=== PATIENT | female | born 1955 | race Caucasian/White ===

== ENCOUNTER 2019-10-25 14:15 | Outpatient (RCR) | payer OTHER, SELFPAY ==
[2019-10-12 15:11] VITALS: BP 159/89; PULSE 132; RESP 18; TEMP 37.2; BMI 35.2
--- NOTE | 2019-10-12 17:12 | HP.PCM_ITS ---
(1) Pressure injury of right buttock, stage 3 Status: Acute Current Visit: Yes Code(s): L89.313 - Pressure ulcer of right buttock, stage 3 (2) Pressure injury of sacral region, stage 2 Status: Acute Current Visit: Yes Code(s): L89.152 - Pressure ulcer of sacral region, stage 2 (3) Debility Status: Acute Current Visit: Yes Code(s): R53.81 - Other malaise (4) Multiple sclerosis Status: Acute Current Visit: Yes Code(s): G35 - Multiple sclerosis (5) Psoriasis Status: Acute Current Visit: Yes Code(s): L40.9 - Psoriasis, unspecified (6) Bilateral lower extremity edema Status: Acute Current Visit: Yes Code(s): R60.0 - Localized edema (7) History of breast cancer Status: Acute Current Visit: Yes Code(s): Z85.3 - Personal history of malignant neoplasm of breast History of Present Illness Date of Service: 10/12/19 Chief Complaint: Pressure injuries to sacral area and right buttock x2 months History of Wound: This is a 64-year-old white female who presents to the wound healing center today with her with complaint of nonhealing pressure injuries to sacrum and right buttock for the last 2 months. She has a past medical history as listed above significant for MS and is nonambulatory. She states that she spends most of the time in her wheelchair or a chair. She does have a pressure relieving cushion and mattress Topper. She notes that over the past 2 months these wounds have opened up and progressively worsened. She now notes a foul smell. She states that she has been utilizing Aquasol silver without much improvement. She denies any prior history of wounds in the past. She is not ambulatory and spends most of her time in the seated position. He does have chronic lower extremity edema and wears compression stockings at 30 to 40 mmHg. She denies any other acute concerns at this time. All other systems are reviewed and negative with exception of those listed above. Past Medical History Surgical History: no surgical history Lives: Spouse/ Significant Other Smoking Status: Never smoker Tobacco Use: Non-smoker Alcohol: None Drugs: None Review of Systems Constitutional: Denies: Chills, Fever, Weight Change Eyes: Denies: Pain, Vision Change HEENT: Denies: Difficulty Hearing, Difficulty Swallowing, Sinus Congestion Cardiovascular: Denies: Chest Pain, Palpitations Respiratory: Denies: Cough, Shortness of Breath Gastrointestinal: Denies: Diarrhea, Nausea, Vomiting Genitourinary: Denies: Dysuria, Hematuria Skin: Reports: Wounds - See HPI Endocrine: Denies: Heat/ Cold Intolerance, Polydipsia, Polyuria Hematologic/ Lymphatic: Denies: Easy Bruising, Easy Bleeding - Physical Exam Vital Signs Temp Pulse Resp BP 98.9 F 132 H 18 159/89 H 10/12/19 15:11 10/12/19 15:11 10/12/19 15:11 10/12/19 15:11 General: Alert, Oriented x3, Cooperative, No apparent distress HEENT: Atraumatic, PERRLA, EOMI Oral: Moist Mucosa Neck: Supple, No JVD, Negative Carotid Bruits Lungs: Clear to auscultation, Normal air movement, No rhonchi, No wheeze, No rales Cardiovascular: Regular rate, Regular Rhythm Abdomen: Soft, Non Tender, Obese Extremities: Capillary Refill Less than 3 Seconds, Edema - Underlies bilateral lower extremity edema Skin: Ulcer/ Wound - Stage II pressure injury to sacrum with adherent slough to wound bed, no signs of obvious infection at this time, stage III pressure injury to right buttock with large amount of adherent slough and necrotic tissue. Foul smell present, no fluctuance noted and no surrounding erythema warmth or tenderness, no tunneling or undermining present at this time. Wound Measurements and Assessment WC - Nurse 1 - General Ulcer Measurement Start: 10/12/19 15:11 Freq: Status: Active Protocol: Activity Type Activity Date Activity User E-Sign Co-Sign Detail Recorded Client Recorded Date Recorded By Document 10/12/19 15:11 DV [id number] 10/12/19 15:57 DV 10/12/19 15:11 Wound Center Nurse 1 [Ulcer Assessment] #1- R GLUTEAL FOLD -Combined with other wound No -Current Size (cm) - Length 3 -Current Size (cm) - Width 2 -Current Size (cm) - Depth 2.5 -Total Square Cm 6 -Date of Last Picture (Recall this 10/12/19 field) -Photo Taken Yes -Epithelialization None Present -Tunneling No -Undermining/Tunneling No -Circular Undermining No -Classification - Thickness Full Thickness without Exposed Support Structure -Classification - Pressure Ulcer Stage 3 -Exudate Amt Large -Exudate Type Yellow/Green -Wound Margin Distinct, Outline Attached -Granulation Amt None Present (0 %) -Granulation Quality N/A -Slough/Fibrin Yes -Necrosis Amt Large (67-100%) -Necrotic Tissue Type Adherent Slough -Structure Exposed Fat Layer Exposed,None/ Limited to Skin Breakdown -Texture (Janene-wound Skin Appearance) Assessed -Moisture (Janene-wound Skin Appearance Assessed, ) Weeping -Color (Janene-wound Skin Appearance) Assessed -Temperature (Janene-wound Skin No Abnormality Appearance) (Pt Warm) Musculoskeletal: Muscle Wasting - Lateral lower extremities, - - Generalized weakness bilateral lower extremities Neurological: Neuro grossly intact Psych/Mental Status: Normal Affect, Appropriate, Alert and oriented to time, place, person, mood and affect Debridement Note Wound debrided: Stage II pressure injury sacrum Laterality: Not Applicable Type of Debridement: Excisional debridement Anesthesia Used: 5% Lidocaine Gel Depth: in the subcutaneous layer Percentage of wound debrided: 100 Instrument Used: 7mm curette Tissue Removed: Slough and devitalized tissue Severity: Fat Layer Exposed Amount of bleeding with debridement: Mild Bleeding Controlled with: Pressure Patient tolerated procedure well - Additional Wound Wound debrided: Stage III pressure injury right lower buttock Laterality: Right Type of Debridement: Excisional debridement Anesthesia Used: 5% Lidocaine Gel Depth: in the subcutaneous layer Percentage of wound debrided: 100 Instrument Used: 7mm curette Tissue Removed: Slough, devitalized tissue, necrotic tissue Severity: Fat Layer Exposed Amount of bleeding with debridement: Mild Bleeding Controlled with: Pressure Patient tolerated procedure: Patient tolerated procedure well Assessment/Plan Active Problems Pressure injury of right buttock, stage 3 (Acute) Pressure injury of sacral region, stage 2 (Acute) Debility (Acute) Multiple sclerosis (Acute) Psoriasis (Acute) Bilateral lower extremity edema (Acute) History of breast cancer (Acute) Assessment: See above diagnoses Plan: The patient was seen and examined at the wound center today and was updated on the plan of care. A subcutaneous debridement was performed today. The patient tolerated the procedure well. The patients wound care will consist of: Continuing Aquasol silver and doing a foam dressing to her stage II pressure injury of the sacrum, santyl cover with gauze to the stage III right buttock and will apply for wound VAC given the depth. Wound cultures were collected. Conrad taylor bloodwork ordered. Patient was educated on the importance of offloading measures to take into consideration and of importance of offloading. Patient educated on the importance of diet on wound healing and instructed to increase protein and vitamin C intake. Patient verbalized understanding. Patient will follow up at wound healing center in one week or sooner if needed. Given the duration of her wounds and the fact that she has failed standard wound therapy, will apply for an advanced skin substitutes. This note was generated with [employer] dictation software. It may contain incorrect words, spelling, and punctuation that were not noted in checking the note before signing. Code Visit Office Visits / Consults: [id number] OV L4 New 111xxx-113xx: [id number] Neeta subq tissue 20 sq cm/< Add On Codes: 75903 Neeta subq tissue add-on
[2019-10-19 14:56] VITALS: BP 111/61; PULSE 112; RESP 20; TEMP 37; BMI 35.2
--- NOTE | 2019-10-19 18:04 | PCM.WC.PN ---
(1) Pressure injury of right buttock, stage 3 Status: Acute Code(s): L89.313 - Pressure ulcer of right buttock, stage 3 (2) Pressure injury of sacral region, stage 2 Status: Acute Code(s): L89.152 - Pressure ulcer of sacral region, stage 2 (3) Debility Status: Acute Code(s): R53.81 - Other malaise (4) Multiple sclerosis Status: Acute Code(s): G35 - Multiple sclerosis (5) Psoriasis Status: Acute Code(s): L40.9 - Psoriasis, unspecified (6) Bilateral lower extremity edema Status: Acute Code(s): R60.0 - Localized edema (7) History of breast cancer Status: Acute Code(s): Z85.3 - Personal history of malignant neoplasm of breast Type of Wound Date of Service: 10/19/19 Chief Complaint: Pressure injuries to sacral area and right buttock x2 months History of Wound: This is a 64-year-old white female who presents to the wound healing center today with her with complaint of nonhealing pressure injuries to sacrum and right buttock for the last 2 months. She has a past medical history as listed above significant for MS and is nonambulatory. She states that she spends most of the time in her wheelchair or a chair. She does have a pressure relieving cushion and mattress Topper. She notes that over the past 2 months these wounds have opened up and progressively worsened. She now notes a foul smell. She states that she has been utilizing Aquasol silver without much improvement. She denies any prior history of wounds in the past. She is not ambulatory and spends most of her time in the seated position. He does have chronic lower extremity edema and wears compression stockings at 30 to 40 mmHg. She denies any other acute concerns at this time. All other systems are reviewed and negative with exception of those listed above. Progress of Wound: Wounds are stable, patient still has a large amount of necrotic tissue in the right buttock pressure ulcer which I do believe she would benefit from surgical debridement. She did have blood work and x-rays done at [facility] last week but the records are not available for review at this time. Patient's is with her today and states that she did have a syncopal episode when trying to have a bowel movement. No further episodes since then and states that this occurs frequently for her.Patient is essentially homebound and does get home health care 2 times a week. However does admit to having difficulty transferring and caring for her at home at times. Is not receptive to senior living facility at this time.ReViewed her cultures and it showed Proteus mirabilis, E. coli, and anaerobic bacteria and therefore patient was placed on Cipro and Augmentin, has been has not picked up the medication yet and he has also not picked up the santyl either. Has been currently doing wet-to-dry dressings.Denies any local or systemic signs of infection at this time. - Physical Exam Vital Signs Temp Pulse Resp BP 98.6 F 112 H 20 H 111/61 10/19/19 14:56 10/19/19 14:56 10/19/19 14:56 10/19/19 14:56 General: Alert, Oriented x3, Cooperative, No apparent distress HEENT: Atraumatic Oral: Moist Mucosa Neck: Supple Lungs: Clear to auscultation, Normal air movement Cardiovascular: Regular rate Abdomen: Soft, Non Tender, Obese Extremities: No clubbing, No cyanosis, No edema Skin: Ulcer/ Wound - Ulceration to sacrum with small amount of adherent slough, wound bed granular without any signs of infection, ulceration to right buttock with large amount of necrotic tissue which is foul-smelling and large amount of slough to which is adherent to the wound bed, wound depth is significant, however no tunneling or probing to bone at this time. Musculoskeletal: Arthritic Changes, Muscle Wasting Neurological: Neuro grossly intact Psych/Mental Status: Normal Affect, Appropriate, Alert and oriented to time, place, person, mood and affect Debridement Note Post-Debridement Measurements/Treatment WC - Nurse 2 - General Ulcer CM Notes Start: 10/12/19 15:11 Freq: Status: Active Protocol: Activity Type Activity Date Activity User E-Sign Co-Sign Detail Recorded Client Recorded Date Recorded By Document 10/12/19 16:30 DV [id number] 10/13/19 17:56 DV Document 10/19/19 15:24 DV [id number] 10/19/19 15:35 DV 10/12/19 10/19/19 16:30 15:24 Wound Center Nurse 2 #2- SACRUM -Time 16:30 15:24 -Correct Patient Yes Yes -Correct Side, Site, Position Yes Yes -Correct Procedure Yes Yes -Procedure Performed Yes Yes -Type of Procedure Debridement Debridement -Clinical Debridement Subcutaneous Subcutaneous -Post Debridement Size (cm) - Length 3.7 6.5 -Post Debridement Size (cm) - Width 3.0 5.0 -Post Debridement Size (cm) - Depth 2.8 0.2 -Total Square Cm 11.10 32.50 -Wound/Ulcer Outcome Not Healed Not Healed -Ulcer Cleansing Rinsed/ Rinsed/ Irrigated with Irrigated with Saline Saline -Foul Odor after Cleansing No Yes -Bioengineered Tissue No No -Bleeding Controlled with Pressure Pressure -Offloading No No -Treatment Response Procedure Procedure Tolerated Well Tolerated Well #1- R GLUTEAL FOLD -Time 16:30 15:25 -Correct Patient Yes Yes -Correct Side, Site, Position Yes Yes -Correct Procedure Yes Yes -Procedure Performed Yes Yes -Type of Procedure Debridement Debridement -Clinical Debridement Subcutaneous Subcutaneous -Post Debridement Size (cm) - Length 5.1 3.0 -Post Debridement Size (cm) - Width 0.2 3.0 -Post Debridement Size (cm) - Depth 0.2 4.2 -Total Square Cm 1.02 9.00 -Wound/Ulcer Outcome Not Healed Not Healed -Ulcer Cleansing Rinsed/ Rinsed/ Irrigated with Irrigated with Saline Saline -Foul Odor after Cleansing No No -Bioengineered Tissue No No -Bleeding Controlled with Pressure Pressure -Offloading No No -Treatment Response Procedure Tolerated Well Pain Scale: 0-10 Numeric Is Patient Pain Free? Yes Yes Wound debrided: Stage II pressure injury to sacrum Laterality: Not Applicable Type of Debridement: Excisional debridement Anesthesia Used: 5% Lidocaine Gel Depth: in the subcutaneous layer Percentage of wound debrided: 100 Instrument Used: 7mm curette Tissue Removed: Slough and devitalized tissue Severity: Fat Layer Exposed Amount of bleeding with debridement: Mild Bleeding Controlled with: Pressure Patient tolerated procedure well - Additional Wound Wound debrided: Stage III pressure injury right buttock Type of Debridement: Excisional debridement Anesthesia Used: 5% Lidocaine Gel Depth: in the subcutaneous layer Percentage of wound debrided: 100 Instrument Used: 7mm curette Tissue Removed: Slough and devitalized tissue Severity: Fat Layer Exposed Amount of bleeding with debridement: Mild Bleeding Controlled with: Pressure Patient tolerated procedure: Patient tolerated procedure well Assessment/Plan Assessment: See above diagnoses Plan: The patient was seen and examined at the wound center today and was updated on the plan of care. A subcutaneous debridement was performed today. The patient tolerated the procedure well. The patients wound care will consist of: Continuing Aquacell silver and doing a foam dressing to her stage II pressure injury of the sacrum, santyl cover with gauze to the stage III right buttock and will apply for wound VAC given the depth. Wound cultures were collected Prior and showed Proteus mirabilis, E. coli, anaerobic bacteria and patient was placed on Cipro and Augmentin. Baseline bloodwork Pending. Patient was educated on the importance of offloading measures to take into consideration and of importance of offloading. Patient educated on the importance of diet on wound healing and instructed to increase protein and vitamin C intake. Patient verbalized understanding.X-ray and blood work was ordered prior and done, however results are not available for review at this time, will request results again. Advised patient and who is caregiver that if symptoms worsen or if he has difficulty caring for her at home then she needs to go to the emergency department and consider long-term senior living care. Did also discuss the benefits of a pressure relieving mattress and pressure relieving seat cushion. A referral will be made to plastics as I feel that the patient will benefit from surgical debridement. Patient will follow up at wound healing center in one week or sooner if needed. Given the duration of her wounds and the fact that she has failed standard wound therapy, will apply for an advanced skin substitutes. This note was generated with [employer] dictation software. It may contain incorrect words, spelling, and punctuation that were not noted in checking the note before signing. Code Visit 111xxx-113xx: [id number] Neeta subq tissue 20 sq cm/<
[2019-10-25 14:21] VITALS: BP 136/95; PULSE 123; RESP 20; TEMP 36.4; BMI 35.2
--- NOTE | 2019-10-25 21:32 | PN.PCM_ITS ---
(1) Pressure injury of right buttock, stage 3 Status: Acute Code(s): L89.313 - Pressure ulcer of right buttock, stage 3 (2) Pressure injury of sacral region, stage 2 Status: Acute Code(s): L89.152 - Pressure ulcer of sacral region, stage 2 (3) Debility Status: Acute Code(s): R53.81 - Other malaise (4) Multiple sclerosis Status: Acute Code(s): G35 - Multiple sclerosis (5) Psoriasis Status: Acute Code(s): L40.9 - Psoriasis, unspecified (6) Bilateral lower extremity edema Status: Acute Code(s): R60.0 - Localized edema (7) History of breast cancer Status: Acute Code(s): Z85.3 - Personal history of malignant neoplasm of breast Type of Wound Date of Service: 10/25/19 Chief Complaint: Pressure injuries to sacral area and right buttock x2 months History of Wound: This is a 64-year-old white female who presents to the wound healing center today with her with complaint of nonhealing pressure injuries to sacrum and right buttock for the last 2 months. She has a past medical history as listed above significant for MS and is nonambulatory. She states that she spends most of the time in her wheelchair or a chair. She does have a pressure relieving cushion and mattress Topper. She notes that over the past 2 months these wounds have opened up and progressively worsened. She now notes a foul smell. She states that she has been utilizing Aquasol silver without much improvement. She denies any prior history of wounds in the past. She is not ambulatory and spends most of her time in the seated position. He does have chronic lower extremity edema and wears compression stockings at 30 to 40 mmHg. She denies any other acute concerns at this time. All other systems are reviewed and negative with exception of those listed above. 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 She did have blood work and x-rays done at [place] three weeks ago and records have been requested multiple times but the records are not available for review at this time. Not willing to have redone at [place]. Patient's is with her today and notes increased difficulty caring for her at home. Patient is essentially homebound and does get home health care 2 times a week. However does admit to having difficulty transferring and caring for her at home at times. Is not receptive to halfway facility at this time.ReViewed her cultures and it showed Proteus mirabilis, E. coli, and anaerobic bacteria and therefore patient was placed on Cipro and Augmentin which she is tolerating, notes less of a foul smell from wounds. Denies any local or systemic signs of infection at this time. - Physical Exam Vital Signs Temp Pulse Resp BP 97.5 F L 123 H 20 H 136/95 H 10/25/19 14:21 10/25/19 14:21 10/25/19 14:21 10/25/19 14:21 General: Alert, Oriented x3, Cooperative, No apparent distress HEENT: Atraumatic Oral: Moist Mucosa Lungs: Clear to auscultation Cardiovascular: Regular rate Abdomen: Soft, Non Tender, Obese Extremities: No clubbing, No cyanosis, No edema Skin: Ulcer/ Wound - See nursing documentation, large amount of slough and devitalized tissue present Musculoskeletal: Muscle Wasting Psych/Mental Status: Normal Affect, Appropriate Debridement Note Post-Debridement Measurements/Treatment WC - Nurse 2 - General Ulcer CM Notes Start: 10/12/19 15:11 Freq: Status: Active Protocol: Activity Type Activity Date Activity User E-Sign Co-Sign Detail Recorded Client Recorded Date Recorded By Document 10/12/19 16:30 DV [id number] 10/13/19 17:56 DV Document 10/19/19 15:24 [id number] 10/19/19 15:35 DV Document 10/25/19 14:42 [id number] 10/25/19 14:43 10/12/19 10/19/19 10/25/19 16:30 15:24 14:42 Wound Center Nurse 2 #2- SACRUM -Time 16:30 15:24 14:43 -Correct Patient Yes Yes Yes -Correct Side, Site, Position Yes Yes Yes -Correct Procedure Yes Yes Yes -Procedure Performed Yes Yes Yes -Type of Procedure Debridement Debridement Debridement -Clinical Debridement Subcutaneous Subcutaneous Subcutaneous -Post Debridement Size (cm) - Length 3.7 6.5 3.0 -Post Debridement Size (cm) - Width 3.0 5.0 0.5 -Post Debridement Size (cm) - Depth 2.8 0.2 0.2 -Total Square Cm 11.10 32.50 1.50 -Wound/Ulcer Outcome Not Healed Not Healed Not Healed -Ulcer Cleansing Rinsed/ Rinsed/ Rinsed/ Irrigated with Irrigated with Irrigated with Saline Saline Saline -Foul Odor after Cleansing No Yes No -Bioengineered Tissue No No No -Bleeding Controlled with Pressure Pressure Pressure -Offloading No No No -Treatment Response Procedure Procedure Procedure Tolerated Well Tolerated Well Tolerated Well #1- R GLUTEAL FOLD -Time 16:30 15:25 14:43 -Correct Patient Yes Yes Yes -Correct Side, Site, Position Yes Yes Yes -Correct Procedure Yes Yes Yes -Procedure Performed Yes Yes Yes -Type of Procedure Debridement Debridement Debridement -Clinical Debridement Subcutaneous Subcutaneous Subcutaneous -Post Debridement Size (cm) - Length 5.1 3.0 2.6 -Post Debridement Size (cm) - Width 0.2 3.0 3.5 -Post Debridement Size (cm) - Depth 0.2 4.2 2.0 -Total Square Cm 1.02 9.00 9.10 -Wound/Ulcer Outcome Not Healed Not Healed Not Healed -Ulcer Cleansing Rinsed/ Rinsed/ Rinsed/ Irrigated with Irrigated with Irrigated with Saline Saline Saline -Foul Odor after Cleansing No No No -Bioengineered Tissue No No No -Bleeding Controlled with Pressure Pressure Pressure -Offloading No No No -Treatment Response Procedure Procedure Tolerated Well Tolerated Well Pain Scale: 0-10 Numeric Is Patient Pain Free? Yes Yes Yes Wound debrided: Right stage III buttock pressure injury Laterality: Right Type of Debridement: Excisional debridement Anesthesia Used: 5% Lidocaine Gel Depth: in the subcutaneous layer Percentage of wound debrided: 100 Instrument Used: 7mm curette Tissue Removed: Slough and devitalized tissue Severity: Fat Layer Exposed Amount of bleeding with debridement: Mild Bleeding Controlled with: Pressure Patient tolerated procedure well - Additional Wound Wound debrided: Stage II pressure ulcer of sacrum Type of Debridement: Excisional debridement Anesthesia Used: 5% Lidocaine Gel Depth: in the subcutaneous layer Percentage of wound debrided: 100 Instrument Used: 7mm curette Tissue Removed: Slough and devitalized tissue Severity: Fat Layer Exposed Amount of bleeding with debridement: Mild Bleeding Controlled with: Pressure Patient tolerated procedure: Patient tolerated procedure well Assessment/Plan Assessment: See above diagnoses Plan: The patient was seen and examined at the wound center today and was updated on the plan of care. A subcutaneous debridement was performed today. The patient tolerated the procedure well. The patients wound care will consist of: Continuing Aquacell silver and doing a foam dressing to her stage II pressure injury of the sacrum, santyl cover with gauze to the stage III right buttock and will apply for wound VAC given the depth. Wound cultures were collected Prior and showed Proteus mirabilis, E. coli, anaerobic bacteria and patient was placed on Cipro and Augmentin Which she is tolerating. Baseline bloodwork Pending. Patient was educated on the importance of offloading measures to take into consideration and of importance of offloading. Patient educated on the importance of diet on wound healing and instructed to increase protein and vitamin C intake. Patient verbalized understanding.X-ray and blood work was ordered prior and done, however results are not available for review at this time, will request results again For the third time. Advised patient and who is caregiver that if symptoms worsen or if he has difficulty caring for her at home then she needs to go to the emergency department and consider long-term halfway care. Did also discuss the benefits of a pressure relieving mattress and pressure relieving seat cushion. A referral will be made to plastics as I feel that the patient will benefit from surgical debridement. Patient will follow up at wound healing center in one week or sooner if needed. Given the duration of her wounds and the fact that she has failed standard wound therapy, will apply for an advanced skin substitutes. This note was generated with [employer] dictation software. It may contain incorrect words, spelling, and punctuation that were not noted in checking the note before signing. Code Visit 111xxx-113xx: 58632 Neeta musc/fascia 20 sq cm/<
== END 2019-10-28 23:59 ==
LOC: WC 14:15
PROVIDERS: Family Provider Family Medicine; PCP Family Medicine; Referring Provider Nurse Practitioner Family; Visit Provider Nurse Practitioner Family
DX: L89.313 Pressure ulcer of right buttock, stage 3 (principal); L89.152 Pressure ulcer of sacral region, stage 2; G35 Multiple sclerosis; L40.9 Psoriasis, unspecified; R60.0 Localized edema; Z85.3 Personal history of malignant neoplasm of breast
CPT/HCPCS: 11042; 11043; 11045; 87070; 87075; 87076; 87077; 87186; 87205; 99203; G0463

== ENCOUNTER 2019-11-02 17:14 | Inpatient (IN) | payer MEDICARE, SELFPAY ==
[2019-11-02 15:45] VITALS: BMI 35.2
[2019-11-02 17:18] VITALS: BP 146/91; PULSE 114; RESP 17; TEMP 36.8; O2SAT 99; BMI 36.0
--- NOTE | 2019-11-02 18:20 | EKG12_ITS ---
Test Reason : Blood Pressure : / mmHG Vent. Rate : 113 BPM Atrial Rate : 113 BPM P-R Int : 182 ms QRS Dur : 072 ms QT Int : 354 ms P-R-T Axes : 069 053 067 degrees QTc Int : 485 ms Sinus tachycardia Possible Left atrial enlargement Nonspecific ST abnormality Abnormal ECG Confirmed by GEOFF ROSARIO, MARGY ([id number]), editor map JAMES LOWE ([id number]) on 11/05/2019 10:04:30 AM Referred By: JUANA Confirmed By:MIRTA TELLEZ MD
--- NOTE | 2019-11-02 18:41 | ED.VIS.GEN ---
History of Present Illness Chief Complaint: Wound Informant: Patient, Family Onset: Weeks Context: Gradual Onset Timing: Continuous Narrative: Patient is a 64-year-old female with history of MS and sacral wounds presenting for concern of an infected wound. Patient is following at the wound care center and had her third visit today. Patient has had worsening right gluteal wound that the says is been significantly worsening over the past 2 to 3 days. He notes that there is been more drainage and more of an odor to it over the past few days. Patient had a wound culture performed that was positive for 4 different organisms. She is currently on Cipro and Augmentin and has been on them for 3 and 2 weeks respectively. She denies any fever or chills. She notes that she is wheelchair bound [place] and her is her primary chiropractic care. She denies any other complaints at this time. Patient denies any associated fevers, chills, nausea or vomiting. She denies any cough, chest pain or difficulty breathing. Past Medical History - Allergies and Home Meds Allergies/Adverse Reactions: Allergies bacitracin [From Neosporin ([id number])] Allergy (Verified 11/02/19 17:16) Rash neomycin [From Neosporin ([id number])] Allergy (Verified 11/02/19 17:16) Rash ondansetron [From Zofran] Allergy (Verified 11/02/19 17:16) Other PALPITATIONS polymyxin B [From Neosporin ([id number])] Allergy (Verified 11/02/19 17:16) Rash Sulfa (Sulfonamide Antibiotics) Allergy (Verified 11/02/19 17:16) Rash Past Medical History: - - MS Surgical History: mastectomy - right, - - Suprapubic catheter, skin debridements Lives: Spouse/ Significant Other Smoking Status: Never smoker Alcohol: None Drugs: None - Family History Maternal Family History: Reports: Cancer Paternal Family History: Reports: Heart Disease Review of Systems General: Denies: Chills, Fever, Sweats Eyes: Denies: Visual changes - bilaterally, Diplopia ENT: Denies: Rhinorrhea, Sore throat Cardiovascular: Denies: Chest pain, Palpitations Respiratory: Denies: Dyspnea, Cough, Dyspnea on exertion Gastrointestinal: Denies: Abdominal pain, Nausea, Vomiting, Diarrhea, Melena, Hematochezia Genitourinary: Denies: Dysuria, Hematuria, Frequency Musculoskeletal: Denies: Back pain, Extremity Pain Skin: Reports: Wounds - Right buttocks and sacrum. Denies: Rash Neurological: Reports: Weakness - Lower extremities?chronic secondary to MS. Denies: Headache, Numbness Physical Exam Vital Signs/Narrative: Vital Signs Temp Pulse Resp BP Pulse Ox 11/02/19 17:18 98.2 F 114 H 17 146/91 H 99 Inital Vital Signs reviewed: Yes General: Well nourished, Well developed, Obese, No Acute Distress Head: Normocephalic, Atraumatic Eyes: Perrl, EOMI ENT: Moist mucous membranes, No rhinorrhea Neck: Supple, Nontender Cardiovascular: Regular rhythm, No murmurs, Tachycardia Respiratory: No distress, CTA bilaterally, Chest nontender Abdomen: Soft, Nontender, Nondistended, Normal bowel sounds Back: Nontender, Normal Inspection Extremities: Nontender, No edema Skin: - - Stage II sacral wound approximately 4 cm x 4 cm. Unstageable right gluteal wounds near midline approximately 2 cm x 3 cm and then 2 cm deep, odorous discharge present from it. Mild surrounding erythematous changes. No crepitus appreciated Neurological: Alert, Oriented x3, Cranial nerves II-XII grossly intact, Normal Sensation. Negative for: Normal Gait Psychological: Normal affect, Normal Mood Diagnostic/Tx/Re-eval Chest X-Ray - ED: 1 View, Read by ED Physician, Read by Radiologist, No Acute Disease Clinical Impression(s) from Imaging Studies Chest X-Ray 11/02/19 18:45 IMPRESSION: No acute cardiopulmonary disease. Electronically Signed: Trevor Palmer DO at 19:01 EST Tel [phone], Service support , Laboratory Data 11/02/19 11/02/19 11/02/19 21:00 21:00 21:00 WBC 15.0 H RBC 4.87 Hgb 13.5 Hct 42.3 MCV 86.9 MCH 27.7 MCHC 31.9 L RDW Std Deviation 43.8 RDW Coeff of [place] 13.7 Plt Count 454 H MPV 10.0 Immature Gran % (Auto) 0.500 Neut % (Auto) 82.6 H Lymph % (Auto) 12.2 L [place] % (Auto) 4.1 Eos % (Auto) 0.3 Baso % (Auto) 0.3 Absolute Neuts (auto) 12.4 H Absolute Lymphs (auto) 1.83 Nucleated RBC % 0 PT 14.0 INR 1.1 APTT 27.6 Sodium 136 Potassium 3.7 Chloride 100 Carbon Dioxide 29.0 Anion Gap 7 BUN 11 Creatinine 0.42 L Estim Creat Clear Calc 131.59 Est GFR (MDRD) Af Amer 192 Est GFR (MDRD) Non-Af 159 BUN/Creatinine Ratio 25.9 H Glucose 96 Lactic Acid Calcium 8.9 Total Bilirubin 0.30 AST 18 ALT 22 Alkaline Phosphatase 73 Total Protein 8.9 H Albumin 2.8 L Globulin 6.1 H Albumin/Globulin Ratio 0.5 L Urine Color Urine Clarity Urine pH Ur Specific [place] Urine Protein Urine Glucose (UA) Urine Ketones Urine Occult Blood Urine Nitrite Urine Bilirubin Urine Urobilinogen Ur Leukocyte Esterase Urine RBC Urine WBC Ur Squamous Epith Cells Urine Bacteria Urine Mucus Urine Yeast 11/02/19 11/02/19 21:00 21:00 WBC RBC Hgb Hct MCV MCH MCHC RDW Std Deviation RDW Coeff of [place] Plt Count MPV Immature Gran % (Auto) Neut % (Auto) Lymph % (Auto) [place] % (Auto) Eos % (Auto) Baso % (Auto) Absolute Neuts (auto) Absolute Lymphs (auto) Nucleated RBC % PT INR APTT Sodium Potassium Chloride Carbon Dioxide Anion Gap BUN Creatinine Estim Creat Clear Calc Est GFR (MDRD) Af Amer Est GFR (MDRD) Non-Af BUN/Creatinine Ratio Glucose Lactic Acid 1.3 Calcium Total Bilirubin AST ALT Alkaline Phosphatase Total Protein Albumin Globulin Albumin/Globulin Ratio Urine Color Yellow Urine Clarity Sl. Cloudy Urine pH 6.0 Ur Specific [place] 1.025 Urine Protein 30 H Urine Glucose (UA) Normal Urine Ketones 150 H Urine Occult Blood 25 H Urine Nitrite Negative Urine Bilirubin Negative Urine Urobilinogen Normal Ur Leukocyte Esterase 500 H Urine RBC 0 SEEN Urine WBC 25-50 SEEN Ur Squamous Epith Cells 0 SEEN Urine Bacteria 0 SEEN Urine Mucus 0 SEEN Urine Yeast RARE - Rhythm Strip Rhythm Strip: Sinus Tach Rate: 113 Ectopy: None - EKG Initial EKG Interpretation: Sinus Tachycardia, - - This tachycardia rate of 113 TX interval 182 QRS 72 QTc [address] segments Compared to prior EKG on 04/11/2008 patient is now tachycardic and QTc was 444 at that time Prior: Unchanged - Medical Decision Making Patient is evaluated for concern for infected gluteal wound. Wound is quite deep and the drainage is concerning for infection. In addition patient does have a leukocytosis. Patient has been on antibiotics for 3 weeks I would expect her to have a normal white blood cell count at this point. In addition the wound has been worsening even though her antibiotic's are appropriate for the wound culture. While patient does meet criteria for sepsis she does not meet criteria for severe sepsis or septic shock. She is given a liter of fluids she does have elevated ketones in her urine. Her creatinine is at baseline. There was a delay in obtaining patient's blood work secondary to difficult IV access. Ultimately ultrasound-guided peripheral IV was performed by myself. Patient tolerated this well. I did discuss with Dr. Dougherty, who states he agrees with admission to medicine and will likely take her for debridement tomorrow in the OR. Patient is aware of this. Patient is admitted to medicine service and started on broad-spectrum antibiotics, Zosyn. Urinalysis does show 500 leukoesterase but is likely secondary to chronic colonization and she has a suprapubic catheter. Urine Culture sent. She is stable for the general medical floor at time of disposition. ED Disposition - Plan for ED Patient: Disposition: Acute Care [facility] Diagnosis: Pressure injury of buttock, stage 4, Leukocytosis, Sepsis
--- NOTE | 2019-11-02 18:45 | RAD_ITS ---
STUDY: X-RAY CHEST REASON FOR EXAM: Female, 64 years old. Fever. Cough. Sacral wound. TECHNIQUE: Single AP portable view of the chest. COMPARISON: None. FINDINGS: The lungs are clear and expanded. There is no demonstrated pleural abnormality. Normal size heart. Normal mediastinum and yfn. Normal visualized pulmonary arteries. There is atherosclerotic calcification of the aortic arch with tortuosity. There is dextroscoliosis and degenerative changes of the thoracic spine. There is surgical absent right axilla with what appears to be absence of the right breast shadow. There is no demonstrated abnormality of the visualized soft tissue structures of the upper abdomen. RAD/Chest 1 View (Portable) IMPRESSION: No acute cardiopulmonary disease. Electronically Signed: Trevor Palmer DO at 19:01 EST Tel [phone], Service support ,
[2019-11-02 20:28] VITALS: BP 135/79; BP 135/85; PULSE 105; RESP 16; TEMP 37.1; O2SAT 96; O2SAT 98
[2019-11-02] MEDS: 0.9% Normal Saline 1,000 ML 999 ML IV (20:58)
[2019-11-02 21:13] LABS: Bacteria 0 SEEN /hpf (None Seen); Mucous, Urine 0 SEEN /hpf (<or=2+); Red Blood Cells-Urine 0 SEEN /hpf (0-5); Squamous Epithelial Cells - UA 0 SEEN /hpf (5-10)
[2019-11-02 21:18] LABS: Absolute Lymphocyte Count 1.83 X10^3/uL (0.83-4.51); Absolute Neutrophil Count 12.4 X10^3/uL (2.0-7.7); Basophil# 0.04 X10^3/uL; Basophil% 0.3 % (0-1); Eosinophil# 0.04 X10^3/uL; Eosinophils% 0.3 % (0-5); Hematocrit 42.3 % (37-47); Hemoglobin 13.5 g/dL (12.0-15.0); Lymphocyte # 1.83 X10^3/ul (4.0); Lymphocyte % 12.2 % (19-41); Mean Corp Hgb Conc 31.9 g/dL (32-36); Mean Corpuscular Hgb 27.7 pg (27.0-32.0); Mean Corpuscular Volume 86.9 fL (81-99); Monocyte# 0.62 X10^3/uL; Monocyte% 4.1 % (0-10); NRBC Flagged by Analyzer 0 % (0-5); Neutrophil % 82.6 % (47-70); Platelet Count 454 K/mm3 (150-450); RBC Distribution Width CV 13.7 % (11.6-14.6); RBC Distribution Width SD 43.8 fl (35.1-43.9); Red Blood Count 4.87 M/mm3 (4.2-5.4)
[2019-11-02 21:19] VITALS: BP 135/80; PULSE 102; RESP 16; RESP 18; TEMP 37.2; O2SAT 97
[2019-11-02 21:21] LABS: Color, Urine Yellow (Yellow); Glucose, Dipstick Normal (Normal); Leukocyte Esterase-Dipstick 500 /ul (Negative); Nitrite-Dipstick Negative (Negative); Occult Blood-Urine 25 /ul (Negative); Protein-Dipstick 30 mg/dl (Negative); Specific Gravity, Urine 1.025 (1.002-1.030); Urine Bilirubin Dipstick Negative (Negative); Urine Clarity Sl. Cloudy (Clear); Urine Urobilinogen Normal (Normal)
[2019-11-02 21:23] LABS: International Normalized Ratio 1.1
[2019-11-02 21:24] LABS: Partial Thromboplast Time 27.6 Seconds (24.1-36.2)
[2019-11-02 21:30] LABS: Ketone-Dipstick 150 mg/dl (Negative)
[2019-11-02 21:33] LABS: ALB/GLOB Ratio 0.5 RATIO (0.9-2.4); AST(SGOT) 18 U/L (15-37); Alanine Aminotransfer ALT/SGPT 22 U/L (13-56); Albumin, Serum 2.8 g/dL (3.2-5.0); Alkaline Phosphatase 73 U/L (45-117); Anion Gap 7 (5-15); BUN 11 mg/dL (7-18); BUN/Creat Ratio 25.9 RATIO (10-20); Calcium,Total 8.9 mg/dL (8.5-10.1); Chloride 100 mmol/L (98-107); Creatinine, Serum 0.42 mg/dL (0.55-1.02); EST Glomerular Filtration Rate 159 mL/min (>60); Est Glom Filt Rate - Afr Amer 192 mL/min (>60); Estimated Creatinine Clearance 131.59 ml/min; Globulin 6.1 g/dL (2.2-4.2); Glucose 96 mg/dL (74-106); Potassium 3.7 mmol/L (3.5-5.1); Protein, Total 8.9 g/dL (6.4-8.2); Sodium Level 136 mmol/L (136-145)
[2019-11-02 21:42] LABS: White Blood Cells 25-50 SEEN /hpf (0-5)
[2019-11-02 21:43] LABS: Yeast-Urine RARE /hpf (None Seen)
[2019-11-02 21:48] LABS: Lactic Acid 1.3 mmol/L (0.4-1.9)
[2019-11-02 23:04] VITALS: BP 141/80; PULSE 89; PULSE 92; PULSE 98; RESP 14; RESP 16; TEMP 37.2; O2SAT 98
--- NOTE | 2019-11-02 23:17 | HP.PCM_ITS ---
History of Present Illness Date of Admission: 11/02/19 Chief Complaint: Sacral wound with leukocytosis The patient is a 64 year old F with a history significant for MS that is currently in remission. She also had a history of breast cancer and since having chemo her head mass has subsided. She had a sacral wound about 3 weeks ago with cultures that were pansensitive Proteus and E. coli and she has been on I believe clindamycin and Augmentin for 2 to 3 weeks at this point and has been going to the wound care center every week. She had been feeling fine today however when she presented to the wound care center there was more redness and purulent drainage from the wound and she was sent to the ER. In the ER she was found to have a leukocytosis of 15, she has been afebrile but she was slightly tachycardic. She was given IV fluids as well as a dose of Zosyn in the ER. Past Medical History Allergies bacitracin [From Neosporin ([id number])] Allergy (Verified 11/02/19 17:16) Rash neomycin [From Neosporin ([id number])] Allergy (Verified 11/02/19 17:16) Rash ondansetron [From Zofran] Allergy (Verified 11/02/19 17:16) Other PALPITATIONS polymyxin B [From Neosporin ([id number])] Allergy (Verified 11/02/19 17:16) Rash Sulfa (Sulfonamide Antibiotics) Allergy (Verified 11/02/19 17:16) Rash Surgical History: cholecystectomy, - - Suprapubic catheter Lives: Spouse/ Significant Other Smoking Status: Never smoker Alcohol: None Drugs: None - *Family History Maternal History Items: Cancer Paternal History Items: Heart Disease Review of Systems Constitutional: Denies: Chills, Fever, Weight Change HEENT: Denies: Head Aches, Sinus Congestion, Sinus Drainage Cardiovascular: Denies: Chest Pain, Palpitations Respiratory: Denies: Cough, Shortness of breath at rest, Sputum production Gastrointestinal: Denies: Abdominal Pain, Nausea, Vomiting Genitourinary: Denies: Dysuria Musculoskeletal: Denies: Joint Pain, Joint Tenderness Skin: Reports: Wounds - For the last 2 to 3 weeks. Denies: Rash Neurological: Denies: Numbness, Tingling, Focal weakness Psychiatric: Denies: Anxiety, Depression Hematologic/ Lymphatic: Denies: Easy Bruising, Easy Bleeding VTE Information - Inpt Only VTE Present on Admission: No Patient Problems: Active and Suspected Problems Pressure injury of buttock, stage 4 (Acute) - Physical Exam Vitals/I&O's: Vital Signs Temp Pulse Resp BP Pulse Ox 99 F 98 16 141/80 H 98 11/02/19 23:04 11/02/19 23:04 11/02/19 23:04 11/02/19 23:04 11/02/19 23:04 Oxygen Delivery Method Room Air Weight: 230 lb Body Mass Index (BMI) 36.0 Intake and Output for Last 24 Hours 10/31/19 11/01/19 11/02/19 23:59 23:59 23:59 Intake Total 1000 / 1000 Balance 1000 / 1000 General: Alert, Oriented x3, Cooperative, No apparent distress HEENT: Atraumatic, PERRLA, EOMI, Normocephalic Oral: Moist Mucosa Neck: Supple, No JVD Lungs: Clear to auscultation, Normal air movement, No rhonchi, No wheeze, No rales, Diminished Cardiovascular: Regular rate, Regular Rhythm, Normal S1, Normal S2, No murmurs Abdomen: Soft, Non Tender, Non-Distended, No Hepato-splenomegaly Extremities: No edema, Capillary Refill Less than 3 Seconds Skin: No rashes, No breakdown, Ulcer/ Wound - Evaluation of sacral wound deferred Neurological: - - At baseline for her Psych/Mental Status: Normal Affect, Appropriate Laboratory Results 11/02/19 21:00: WBC 15.0 H, RBC 4.87, Hgb 13.5, Hct 42.3, MCV 86.9, MCH 27.7, MCHC 31.9 L, RDW Std Deviation 43.8, RDW Coeff of [place] 13.7, Plt Count 454 H, MPV 10.0, Immature Gran % (Auto) 0.500, Neut % (Auto) 82.6 H, Lymph % (Auto) 12.2 L, [place] % (Auto) 4.1, Eos % (Auto) 0.3, Baso % (Auto) 0.3, Absolute Neuts (auto) 12.4 H, Absolute Lymphs (auto) 1.83, Nucleated RBC % 0 11/02/19 21:00: PT 14.0, INR 1.1, APTT 27.6 11/02/19 21:00: Sodium 136, Potassium 3.7, Chloride 100, Carbon Dioxide 29.0, Anion Gap 7, BUN 11, Creatinine 0.42 L, Estim Creat Clear Calc 131.59, Est GFR (MDRD) Af Amer 192, Est GFR (MDRD) Non-Af 159, BUN/Creatinine Ratio 25.9 H, Glucose 96, Calcium 8.9, Total Bilirubin 0.30, AST 18, ALT 22, Alkaline Phosphatase 73, Total Protein 8.9 H, Albumin 2.8 L, Globulin 6.1 H, Albumin/Globulin Ratio 0.5 L 11/02/19 21:00: Lactic Acid 1.3 11/02/19 21:00: Urine Color Yellow, Urine Clarity Sl. Cloudy, Urine pH 6.0, Ur Specific [place] 1.025, Urine Protein 30 H, Urine Glucose (UA) Normal, Urine Ketones 150 H, Urine Occult Blood 25 H, Urine Nitrite Negative, Urine Bilirubin Negative, Urine Urobilinogen Normal, Ur Leukocyte Esterase 500 H, Urine RBC 0 SEEN, Urine WBC 25-50 SEEN, Ur Squamous Epith Cells 0 SEEN, Urine Bacteria 0 SEEN, Urine Mucus 0 SEEN, Urine Yeast RARE Assessment/Plan All Active Problems Pressure injury of right buttock, stage 3 (Acute) Pressure injury of sacral region, stage 2 (Acute) Debility (Acute) Multiple sclerosis (Acute) Psoriasis (Acute) Bilateral lower extremity edema (Acute) History of breast cancer (Acute) Pressure injury of buttock, stage 4 (Acute) 1. Sepsis secondary to the sacral wound/chronic sacral and right buttock wound/suprapubic catheter -Blood and urine cultures are pending since she has a chronic suprapubic catheter -She is on chronic Macrobid -Previous wound culture with pansensitive Proteus and E. coli as well as a Bacteroides and Prevotella -We will continue with Zosyn for now and consult surgery for debridement -Consult to the wound care nurse as well -We will obtain a MRSA PCR -IV fluids at 100, lactic acid at 1.3 2. MS/chronic debility -No records of her medication in the system she says that she is not on anything currently for MS just baclofen for spasms -Once the dose is obtained can reorder -PT/OT as well as case management referral for possible placement they do have home health DVT: Lovenox Code Visit Inpatient E&M: 48388 Init Hosp L2
--- NOTE | 2019-11-02 23:20 | PCM.CONS.GEN ---
Reason for Consult Date of Consultation: 11/02/19 Reason for Consultation: Necrotic right ischial pressure sore, Stage IV. REFERRING PHYSICIAN: Dr. Keyes. RETAIL PLANNING MANAGER: Dr. Dougherty. History of Present Illness: The patient is a 64 year old F with a history of MS presents with a worsening right ischial pressure sore. It has developed a foul smelling odor and purulent drainage. She was sent over from the Wound Center. She had recent cultures on 10/12/19 that showed Proteus mirabilis and E. coli and Anaerobes (Bacteroides thetaiotamicron and Prevotella disiens) She was started on Cipro and Augmentin. The pressure sore worsened despite antibiotics and wound care. In the ED, the WBC was 15. She was started on Zosyn. Wound care was started with Dakin's dressing changes. I was asked to evaluate this patient for surgical options for treatment. 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, stage 2 (Chronic) Allergies bacitracin [From Neosporin ([id number])] Allergy (Verified 11/02/19 17:16) Rash neomycin [From Neosporin ([id number]-soa-[id number])] Allergy (Verified 11/02/19 17:16) Rash ondansetron [From Zofran] Allergy (Verified 11/02/19 17:16) Other PALPITATIONS polymyxin B [From Neosporin ([id number])] Allergy (Verified 11/02/19 17:16) Rash Sulfa (Sulfonamide Antibiotics) Allergy (Verified 11/02/19 17:16) Rash Home Medications: Ambulatory Orders Medication Instructions Recorded Acetic Acid 1 applic IRRIGATION DAILY 11/03/19 Ascorbic Acid [Vitamin C] 1 tab PO DAILY 11/03/19 Baclofen 1 - 2 tab PO Q8H PRN PRN 11/03/19 Cholecalciferol (VIT D3) [Vitamin 1,000 unit PO DAILY 11/03/19 D] Cholestyramine (with Sugar) 1 packet PO DAILY 11/03/19 [Cholestyramine Powder] Cranberry Fruit Extract [Cranberry] 200 mg PO DAILY 11/03/19 L. Rhamnosus GG/Inulin [Culturelle 1 ea PO QODAY 11/03/19 Probiotics Capsule] Letrozole 1 tab PO DAILY 11/03/19 Nitrofurantoin Macrocrystal 1 tab PO DAILY 11/03/19 [Macrodantin] Nystatin Powder [Mycostatin Powder] 1 applic OTHER DAILY PRN PRN 11/03/19 Nystatin/Triamcin 1 applic OTHER DAILY 11/03/19 [Nystatin-Triamcinolone Cream] Oxybutynin [Ditropan] 2 tab PO BID 11/03/19 Vitamin E 400 unit PO DAILY 11/03/19 Surgical History: no surgical history Smoking Status: Never smoker - *Family History Maternal History Items: Cancer Paternal History Items: Heart Disease Review of Systems Comment: Constitutional: Denies: Chills, Fever, Weight Change. HEENT: Denies: Head Aches, Sinus Congestion, Sinus Drainage. Cardiovascular: Denies: Chest Pain, Palpitations. Respiratory: Denies: Cough, Shortness of breath at rest, Sputum production. Gastrointestinal: Denies: Abdominal Pain, Nausea, Vomiting. Genitourinary: Denies: Dysuria. Musculoskeletal: Denies: Joint Pain, Joint Tenderness. Skin: Reports: Wounds - For the last 2 to 3 weeks. Denies: Rash. Neurological: Denies: Numbness, Tingling, Focal weakness. Psychiatric: Denies: Anxiety, Depression. Hematologic/ Lymphatic: Denies: Easy Bruising, Easy Bleeding Patient Problems: Active and Suspected Problems Pressure injury of buttock, stage 4 (Acute) Leukocytosis (Acute) Sepsis (Acute) - Physical Exam Vitals/I&O's: General: Alert, Oriented x3, Cooperative, No apparent distress HEENT: PERRLA, EOMI. Oral: Moist Mucosa Neck: Supple, nontender. No cervical adenopathy. Lungs: Clear to auscultation. Cardiovascular: Regular rate, Regular Rhythm. Abdomen: Soft, Non-Distended. Extremities: No edema. Skin: Abrasion in sacral area. Into the dermis. On the right ischial area is a pressure sore, Stage IV. Measures 4 x 3 x 4 cm. Has a foul smelling odor. At the base of the pressure sore is some necrotic tissue and moist exudate. Neurological: - CN II - XII grossly intact. Psych/Mental Status: Normal Affect, Appropriate Vital Signs Temp Pulse Resp BP Pulse Ox 99 F 98 16 141/80 H 98 11/02/19 23:04 11/02/19 23:04 11/02/19 23:04 11/02/19 23:04 11/02/19 23:04 Oxygen Delivery Method Room Air Weight: 230 lb Body Mass Index (BMI) 36.0 Intake and Output for Last 24 Hours 10/31/19 11/01/19 11/02/19 23:59 23:59 23:59 Intake Total 1000 / 1000 Balance 1000 / 1000 Laboratory Results 11/02/19 21:00: WBC 15.0 H, RBC 4.87, Hgb 13.5, Hct 42.3, MCV 86.9, MCH 27.7, MCHC 31.9 L, RDW Std Deviation 43.8, RDW Coeff of [place] 13.7, Plt Count 454 H, MPV 10.0, Immature Gran % (Auto) 0.500, Neut % (Auto) 82.6 H, Lymph % (Auto) 12.2 L, [place] % (Auto) 4.1, Eos % (Auto) 0.3, Baso % (Auto) 0.3, Absolute Neuts (auto) 12.4 H, Absolute Lymphs (auto) 1.83, Nucleated RBC % 0 11/02/19 21:00: PT 14.0, INR 1.1, APTT 27.6 11/02/19 21:00: Sodium 136, Potassium 3.7, Chloride 100, Carbon Dioxide 29.0, Anion Gap 7, BUN 11, Creatinine 0.42 L, Estim Creat Clear Calc 131.59, Est GFR (MDRD) Af Amer 192, Est GFR (MDRD) Non-Af 159, BUN/Creatinine Ratio 25.9 H, Glucose 96, Calcium 8.9, Total Bilirubin 0.30, AST 18, ALT 22, Alkaline Phosphatase 73, Total Protein 8.9 H, Albumin 2.8 L, Globulin 6.1 H, Albumin/Globulin Ratio 0.5 L 11/02/19 21:00: Lactic Acid 1.3 11/02/19 21:00: Urine Color Yellow, Urine Clarity Sl. Cloudy, Urine pH 6.0, Ur Specific [place] 1.025, Urine Protein 30 H, Urine Glucose (UA) Normal, Urine Ketones 150 H, Urine Occult Blood 25 H, Urine Nitrite Negative, Urine Bilirubin Negative, Urine Urobilinogen Normal, Ur Leukocyte Esterase 500 H, Urine RBC 0 SEEN, Urine WBC 25-50 SEEN, Ur Squamous Epith Cells 0 SEEN, Urine Bacteria 0 SEEN, Urine Mucus 0 SEEN, Urine Yeast RARE Assessment/Plan All Active Problems Pressure injury, stage 4, with gangrene (Acute) Pressure injury of right buttock, stage 3 (Acute) Debility (Acute) Multiple sclerosis (Acute) Psoriasis (Acute) Bilateral lower extremity edema (Acute) History of breast cancer (Acute) Pressure injury of buttock, stage 4 (Acute) Leukocytosis (Acute) Sepsis (Acute) 1. Necrotic right ischial pressure sore, Stage IV. 2. Osteomyelitis. 3. Multiple sclerosis. 4. Abrasion sacral area. Continue Dakin's dressing changes to help with the odor. Continue Zosyn antibiotics. She needs operative excision of the necrotic right ischial pressure sore. The necrotic tissue increases risk for necrotizing process involving surrounding muscle. I anticipate osteomyelitis. Will excise bone as well as soft tissue. Postop will apply the VAC. The bone and the soft tissue will be sent to Pathology for analysis to rule out carcinoma and to evaluate for osteomyelitis. The bone and soft tissue will be sent to Microbiology for culture. A positive culture will necessitate antibiotic therapy. Anticipate increased metabolic demands from the pressure sore and the infection. Will check a Prealbumin and encourage nutritional supplementation with protein to help the healing process. I anticipate the need for buttermaker continuous churn IV antibiotics. Will place a PICC line. She needs a specialty bed such as a low air loss bed. She will need one at home eventually. In the short term, she should be evaluated for an ECF. Before surgery, will obtain a CT Pelvis to look for extent of the infection and to look for osteomyelitis. Discussed with the patient that if she develops stool contamination in the wound, then she would be evaluated for a diverting colostomy. Will proceed with the surgery tomorrow. Patient was informed of the risks and complications of the procedure including alternatives to surgery. These were discussed with the patient personally. Patient voices understanding and wishes to proceed. Will apply local wound care to the sacral area with Silver dressing. Code Visit Inpatient E&M: 61171 Init Hosp L2 - ICD-10 - L89.314, I96, M86.651, G35, L89.152
[2019-11-02 23:53] VITALS: BP 118/73; PULSE 97; RESP 18; TEMP 36.8; O2SAT 96
[2019-11-03] VITALS (18 sets, daily range): BP systolic 78–142; BP diastolic 43–95; PULSE 92–114; RESP 16–20; TEMP 36.1–37.3; O2SAT 94–100; BMI 31.5
[2019-11-03] MEDS: 0.9% Normal Saline 1,000 ML 100 ML IV ×3 (01:17→22:01)
[2019-11-03 05:48] LABS: Absolute Lymphocyte Count 1.93 X10^3/uL (0.83-4.51); Absolute Neutrophil Count 9.2 X10^3/uL (2.0-7.7); Basophil# 0.04 X10^3/uL; Basophil% 0.3 % (0-1); Eosinophil# 0.07 X10^3/uL; Eosinophils% 0.6 % (0-5); Hematocrit 36.1 % (37-47); Hemoglobin 11.7 g/dL (12.0-15.0); Lymphocyte # 1.93 X10^3/ul (4.0); Lymphocyte % 16.3 % (19-41); Mean Corp Hgb Conc 32.4 g/dL (32-36); Mean Corpuscular Hgb 27.7 pg (27.0-32.0); Mean Corpuscular Volume 85.3 fL (81-99); Mean Platelet Vol. 9.6 fl (6.2-12.0); Monocyte# 0.58 X10^3/uL; Monocyte% 4.9 % (0-10); NRBC Flagged by Analyzer 0 % (0-5); Neutrophil # 9.15 X10^3/uL (2.7-7.7); Neutrophil % 77.5 % (47-70); Platelet Count 376 K/mm3 (150-450); RBC Distribution Width CV 13.9 % (11.6-14.6); RBC Distribution Width SD 43.1 fl (35.1-43.9); Red Blood Count 4.23 M/mm3 (4.2-5.4); White Blood Count 11.8 K/mm3 (4.4-11.0)
[2019-11-03 06:08] LABS: Anion Gap 6 (5-15); BUN 9 mg/dL (7-18); BUN/Creat Ratio 36.6 RATIO (10-20); Calcium,Total 8.2 mg/dL (8.5-10.1); Chloride 105 mmol/L (98-107); Creatinine, Serum 0.25 mg/dL (0.55-1.02); EST Glomerular Filtration Rate 299 mL/min (>60); Est Glom Filt Rate - Afr Amer 361 mL/min (>60); Estimated Creatinine Clearance 221.08 ml/min; Glucose 94 mg/dL (74-106); Potassium 3.4 mmol/L (3.5-5.1); Sodium Level 136 mmol/L (136-145)
--- NOTE | 2019-11-03 06:59 | CT_ITS ---
STUDY: CT PELVIS WITHOUT CONTRAST REASON FOR EXAM: Female, 64 years old. Sacral ulceration. Escherichia coli sepsis. Patient has a history of breast cancer. RADIATION DOSAGE (If Supplied By Facility): CTDIvol = ( 27.66 ) mGy, DLP = ( 1167.68 ) mGycm TECHNIQUE: Transaxial imaging of the pelvis was performed with oral contrast, and without intravenous administration of contrast material. Multiplanar coronal and sagittal images were reformatted. Individualized dose optimization techniques were used for this CT. COMPARISON: None. FINDINGS: The [place] catheter is seen within the urinary bladder. Urinary bladder is empty. There is a 2.6 cm x 3.5 cm soft tissue defect in the medial proximal right buttock with the surrounding soft tissue swelling and edema. The inflammatory changes extend into the right inferior pubic ramus with the findings suggestive of a possible bony destruction secondary to osteomyelitis. Dense calcifications are seen in the soft tissues overlying both buttocks and the left side of the sacrum. This also evidence of a 3.2 cm x 4.1 cm soft tissue density involving the tip of the sacrum and coccyx. There is also evidence of multiple calcific densities and ossifications overlying the right greater trochanter. There is also evidence of soft tissue swelling at that site. Normal visualized small intestine. There are scattered colonic diverticula of the sigmoid colon consistent with chronic diverticulosis. There is no pelvic fluid. There is no pelvic mass lesion or lymphadenopathy. There is diffuse atherosclerotic calcification of the pelvic arteries. Normal abdominal wall. There are diffuse degenerative changes of the visualized lumbar spine. CT/Pelvis without IV Contrast IMPRESSION: Multiple changes in the pelvis as described with a large tissue defect in the medial proximal right buttock. Electronically Signed: Shar Zamora, at 8:44 EST , Service support ,
[2019-11-03 07:17] LABS: M R Staph aureus DNA By PCR Negative (Negative); Probe Check PASS; Specimen Processing Control PASS
--- NOTE | 2019-11-03 08:43 | NURSING ---
Called and left a message with Dr Jovon Levy's office to get patient's medication list.
--- NOTE | 2019-11-03 09:10 | NURSING ---
wound photo: sacrum
--- NOTE | 2019-11-03 09:10 | NURSING ---
wound photo: right ischium
[2019-11-03 09:16] LABS: Magnesium 1.9 mg/dL (1.6-2.6); Phosphorus 2.8 mg/dL (2.5-4.9)
[2019-11-03] MEDS: Baclofen 10 MG Tablet PO ×2 (09:39→23:08)
--- NOTE | 2019-11-03 09:50 | CASEMGMT ---
RN CM Face to Face with patient for initial transition planning/care coordination assessment. RN CM introduced self and role at [facility]. Patient lying in bed, alert and oriented, family at bedside. Patient willing to participate in assessment and is able to answer all questions appropriately. Care providers, pharmacy, and demographics verified. Patient not sure of discharge disposition, will go to SNF if needed. Patient states she has no further needs or concerns at this time. CM to follow for discharge planning needs that may arise. PCP: Cam Specialists: Don, neurologist; Picclo, urologist Preferred Pharmacy: [facility] in [place] Insurance: Health Plan Prescription Benefit: yes Living Will/HPOA: none LNOK: Living Arrangements: patient lives with in ranch style home with ramp to enter the home. assists with care. Transportation: DME/HHC: Patient has shower chair, raised toilet seat, and power wheelchair at home. Patient is current with [facility]. Patient has been to [facility] in the past. Disposition Plan: TBD Edelmira KAUR, RN, CM
--- NOTE | 2019-11-03 09:55 | NURSING ---
Patient's 3 wedding rings and 2 earrings locked in medication educational interpreter room prior to surgery.
--- NOTE | 2019-11-03 10:23 | PCM.PROGNOTE ---
Patient Problems: Active and Suspected Problems Pressure injury of buttock, stage 4 (Acute) Leukocytosis (Acute) Sepsis (Acute) Subjective: Patient seen and examined. Plan for OR later this morning for sacral decubitus ulcer debridement. Patient denies current pain. Reports her and her have discussed SNF at discharge temporarily for wound management. Patient denies fever, chills. She reports she has been feeling fine however went to wound center yesterday for routine follow-up and was referred to the hospital due to the appearance of her wound. - Physical Exam Vitals/I&O's: Vital Signs Temp Pulse Resp BP Pulse Ox 98.3 F 103 H 18 116/78 94 11/03/19 08:20 11/03/19 08:20 11/03/19 08:20 11/03/19 08:20 11/03/19 08:20 Oxygen Delivery Method Room Air Weight: 201 lb 2 oz Body Mass Index (BMI) 31.5 Intake and Output for Last 24 Hours 11/01/19 11/02/19 11/03/19 23:59 23:59 23:59 Intake Total 1000 / 1000 50 / 50 Output Total 725 / 725 Balance 1000 / 1000 -675 / -675 General: Alert, Oriented x3, Cooperative HEENT: Atraumatic, PERRLA, EOMI, Normocephalic Neck: Supple, No JVD, Negative Carotid Bruits Lungs: Clear to auscultation, Normal air movement Cardiovascular: Regular rate, Regular Rhythm, Normal S1, Normal S2, No murmurs Abdomen: Bowel Sounds Present, Soft, Non Tender, Non-Distended, Obese Extremities: No clubbing, No cyanosis, No edema Skin: No rashes, No breakdown, - - Right ischium and sacral ulcer, dressings intact. Musculoskeletal: No Tenderness to Palpation of Joints or Extremities Neurological: Cranial nerves II-XII grossly intact, Neuro grossly intact, - - Nonambulatory at baseline. Psych/Mental Status: Normal Affect, Appropriate Laboratory Results 11/02/19 21:00: WBC 15.0 H, RBC 4.87, Hgb 13.5, Hct 42.3, MCV 86.9, MCH 27.7, MCHC 31.9 L, RDW Std Deviation 43.8, RDW Coeff of Homer 13.7, Plt Count 454 H, MPV 10.0, Immature Gran % (Auto) 0.500, Neut % (Auto) 82.6 H, Lymph % (Auto) 12.2 L, [place] % (Auto) 4.1, Eos % (Auto) 0.3, Baso % (Auto) 0.3, Absolute Neuts (auto) 12.4 H, Absolute Lymphs (auto) 1.83, Nucleated RBC % 0 11/02/19 21:00: PT 14.0, INR 1.1, APTT 27.6 11/02/19 21:00: Sodium 136, Potassium 3.7, Chloride 100, Carbon Dioxide 29.0, Anion Gap 7, BUN 11, Creatinine 0.42 L, Estim Creat Clear Calc 131.59, Est GFR (MDRD) Af Amer 192, Est GFR (MDRD) Non-Af 159, BUN/Creatinine Ratio 25.9 H, Glucose 96, Calcium 8.9, Total Bilirubin 0.30, AST 18, ALT 22, Alkaline Phosphatase 73, Total Protein 8.9 H, Albumin 2.8 L, Globulin 6.1 H, Albumin/Globulin Ratio 0.5 L 11/02/19 21:00: Lactic Acid 1.3 11/02/19 21:00: Urine Color Yellow, Urine Clarity Sl. Cloudy, Urine pH 6.0, Ur Specific [place] 1.025, Urine Protein 30 H, Urine Glucose (UA) Normal, Urine Ketones 150 H, Urine Occult Blood 25 H, Urine Nitrite Negative, Urine Bilirubin Negative, Urine Urobilinogen Normal, Ur Leukocyte Esterase 500 H, Urine RBC 0 SEEN, Urine WBC 25-50 SEEN, Ur Squamous Epith Cells 0 SEEN, Urine Bacteria 0 SEEN, Urine Mucus 0 SEEN, Urine Yeast RARE 11/03/19 03:50: MRSA (PCR) Negative 11/03/19 05:24: WBC 11.8 H, RBC 4.23, Hgb 11.7 L, Hct 36.1 L, MCV 85.3, MCH 27.7, MCHC 32.4, RDW Std Deviation 43.1, RDW Coeff of Homer 13.9, Plt Count 376, MPV 9.6, Immature Gran % (Auto) 0.400, Neut % (Auto) 77.5 H, Lymph % (Auto) 16.3 L, [place] % (Auto) 4.9, Eos % (Auto) 0.6, Baso % (Auto) 0.3, Absolute Neuts (auto) 9.2 H, Absolute Lymphs (auto) 1.93, Nucleated RBC % 0 11/03/19 05:24: Sodium 136, Potassium 3.4 L, Chloride 105, Carbon Dioxide 25.0, Anion Gap 6, BUN 9, Creatinine 0.25 L, Estim Creat Clear Calc 221.08, Est GFR (MDRD) Af Amer 361, Est GFR (MDRD) Non-Af 299, BUN/Creatinine Ratio 36.6 H, Glucose 94, Calcium 8.2 L 11/03/19 05:24: Phosphorus 2.8, Magnesium 1.9 Current Medications Hydrocodone Bitart/Acetaminophen (Eleva 5mg-325mg) 1 - 2 tablet PO Q4H PRN PRN PRN Reason: Pain Score 4-10/10 Al Hydroxide/Mg Hydroxide (Mylanta Ii) 15 - 30 ml PO Q4H PRN PRN PRN Reason: INDIGESTION Baclofen (Lioresal) 10 mg PO TID [facility] Last Admin: 11/03/19 09:39 Dose: 10 mg Documented by: Enoxaparin Sodium (Lovenox) 40 mg SC DAILY [facility] Last Admin: 11/03/19 08:40 Dose: Not Given Documented by: Hydralazine HCl (Apresoline Iv) 10 mg IV Q4H PRN PRN PRN Reason: SBP > 160 Sodium Chloride () 1,000 mls @ 100 mls/hr IV .Q10H [facility] Last Admin: 11/03/19 01:17 Dose: 100 mls/hr Documented by: Piperacillin Sod/Tazobactam (Sod 3.375 gm/ Sodium Chloride) 50 mls @ 12.5 mls/hr IV Q8 [facility] Last Infusion: 11/03/19 09:44 Dose: Infused Documented by: Magnesium Hydroxide (Milk Of Magnesia) 30 ml PO DAILY PRN PRN Reason: Constipation Morphine Sulfate () 1 - 2 mg IV Q4H PRN PRN PRN Reason: Pain Score 1-10/10 Nutritional Formula (Lactose Free) (Ensure Enlive) 120 ml PO 4X/DAY [facility] Last Admin: 11/03/19 08:40 Dose: Not Given Documented by: Nystatin (Mycostatin Powder) 1 applic TOPICAL BID [facility]; Protocol Promethazine HCl (Phenergan) 6.25 mg IV Q4H PRN PRN PRN Reason: NAUSEA/VOMITING Sodium Chloride () 10 - 40 ml IV UD PRN PRN Reason: SALINE FLUSH Medical Necessity - Tobacco Use Smoking Status: Never smoker Tobacco Use: Non-smoker Assessment/Plan All Active Problems Pressure injury of right buttock, stage 3 (Acute) Pressure injury of sacral region, stage 2 (Acute) Debility (Acute) Multiple sclerosis (Acute) Psoriasis (Acute) Bilateral lower extremity edema (Acute) History of breast cancer (Acute) Pressure injury of buttock, stage 4 (Acute) Leukocytosis (Acute) Sepsis (Acute) 1. Sepsis secondary to infected sacral and right ischium decubitus ulcerations-CT of pelvis shows multiple changes in the pelvis with large tissue defect in the medial proximal right buttock. Prior cultures 10/12/2019 grew Proteus, E. coli, prevotella disiens, and bacteroides thetaiotaomicron. Continue IV Zosyn. Blood cultures pending. Urinalysis appears unremarkable. Patient recently on Augmentin, Cipro and Bactrim prior to admission. Dr. Dougherty on consult, plan for OR today. Wound RN consult. PT/OT. Anticipate SNF at discharge for further wound management. Currently follows at wound center. Q2H turns. 2. MS with chronic debility-suprapubic catheter in place. Home med rec not yet obtained. Initiated on baclofen 10 mg p.o. 3 times daily. 3. Obesity-encouraged dietary modifications. Nutrition consult. DVT prophylaxis-Lovenox subcu This patient was seen by NANO Ricci under the supervision of Dr. Dr. Caballero.
--- NOTE | 2019-11-03 10:56 | NURSING ---
Pt last chemo was in 2011- per pt
--- NOTE | 2019-11-03 11:00 | NURSING ---
Pt reports that she was taking both Augmentin and Cipro for about 3 wks from wound center but does not know dosages. Pt already on IV ATB's. Notified Viridiana Jensen NP
--- NOTE | 2019-11-03 11:14 | PCA ---
pt off floor
--- NOTE | 2019-11-03 11:30 | PRES_PTH ---
PATIENT: NAY GREENE LOC: [facility] U#:[id number] AGE/SX: 64/F ROOM: [facility] RE11/02/[address]: Dr. Gurmeet Dillon DO : 1955 BED: 1 DIS: 11/08/2019 SPEC #: [id number] RECD: 11/03/19 13:22 STATUS: HETAL REAquilino #: [id number] DEEJAY: 11/03/19 11:[address]: Jose E Dougherty DEPT: SURGICAL PATHOLOGY RECD BY: Estelle Thomas ENTERED: 11/03/19 13:49 SP TYPE: PRESS SORE OTHR DR: MD Dr. Norman Roberts MD Dr. Robert Hart, MD Tissues: A - Ischium, NOS B - Ischium, NOS Procedures: Decalcification bone/plaque Surgery Specimen Level IV HEADER OPERATION: Excision, pressure sore, partial ostectomy, ischial PRE-OP DIAGNOSIS: Pressure injury of buttock, stage 4, MS TISSUE SUBMITTED: A. Right ischial pressure sore soft tissue, B. Right ischial pressure sore bone MICROSCOPIC DIAGNOSIS A. Right ischial pressure sore soft tissue: Pieces of skin and soft tissue with extensive ulceration, acute and chronic inflammation, granulation tissue reaction and abscess formation. Special stains for acid fast bacilli and fungi are negative for organisms; matched controls are appropriate. B. Right ischial pressure sore bone: Pieces of bone with moderate chronic inflammation and reactive changes. Negative for acute osteomyelitis. TYLER:sylvia 11/08/19 MICROSCOPIC DESCRIPTION Slides are reviewed. GROSS DESCRIPTION A. Received in fixative is one container labeled with the patient's name and designated ischial pressure sore soft tissue. The specimen consists of skin and underlying tissue measuring 5.5 x 2.5 cm and up to 5 cm in thickness. Skin surface shows extensive area of ulceration. Also present in the container is a small piece of detached soft tissue measuring 5 x 2.5 x 2 cm. Also present in the container are 3 smaller pieces of soft tissue measuring in aggregate 3 x 2 x 0.5 cm. Director Sports sections are submitted in 2 cassettes. B. Received in fixative is one container labeled with the patient's name and designated Right ischial pressure sore bone. Received are 5 variable sized pieces of bone measuring in aggregate 4 x 3 x 0.5 cm. The entire specimen is submitted in two cassettes after decalcification. /TYLER:sylvia 11/03/19 TC: 2 CPT: 18553 x2, 39045, 94469 x2
[2019-11-03] MEDS: Lactated Ringers 1,000 ML 100 ML IV ×2 (11:45→13:00)
--- NOTE | 2019-11-03 13:05 | OP.PCM_ITS ---
Report of Operation Date of Procedure: 11/03/19 Pre-Operative Diagnosis: 1. Necrotic right ischial pressure sore, Stage IV. 2. Osteomyelitis. 3. Multiple sclerosis. Post-Operative Diagnosis: Same. Surgery/Procedure Performed:: Excision necrotic right ischial pressure sore, Stage IV, with partial ostectomy for osteomyelitis. Description of Surgical Findings:: Size of defect right ischial area - 8 x 6 x 5 cm. administration assistant: Dung Jarrett. Type of Anesthesia:: General Specimen's removed: 1. Necrotic right ischial pressure sore soft tissue to Pathology and Microbiology. 2. Necrotic right ischial pressure sore bone to Pathology and Microbiology. 3. MRSA Wound DNA by PCR. Drains: None. Estimated Blood Loss (mL): 150 ml. Description of Procedure: Patient was taken to OR in supine position and placed under general anesthesia. She was then placed in the prone position and her right ischial area was prepped and draped in the usual fashion. SCD's were placed for DVT prophylaxis. Perioperative antibiotics were given intravenously. I excised the necrotic pressure sore right ischial area in a circular fashion down through the subcutaneous tissue and muscle which was indurated with fat necrosis and surrounding tissue necrosis and foul smelling odor. No pus was seen. The indurated ulcer and abnormal bursal scar tissue and surrounding necrotic tissue were excised down to the bone. I suspect osteomyelitis. The ischial bone was irregular in shape which can be consistent with osteomyelitis. A partial ostectomy was performed with an osteotome and a mallet in a tangential direction. The bony edges were smoothed out with a rasp. I also used rongeurs. After the partial ostectomy, the bone showed good bleeding. Hemostasis was obtained with electrocautery. The wound was irrigated with saline. The size of the defect after excision was 8 x 6 x 5 cm. The wound was packed with Mepitel nonadherent dressing followed by Kerlix gauze and Betadine followed by dry Kerlix gauze and ABD pads and tape for a compression dressing. Half the soft tissue and half the bone was sent to Pathology for analysis to rule out carcinoma and to evaluate for osteomyelitis. Half the soft tissue and half the bone was sent to Microbiology for culture. A positive culture may necessitate antibiotic modification. MRSA Wound DNA by PCR was also done. She is being treated perioperatively with Zosyn. Patient tolerated the procedure well and will be sent to PACU in satisfactory condition. She will be sent back upstairs for continued postop care. Tomorrow they will place the VAC. I anticipate the need for additional IV antibiotics and the use of a PICC line. She will need to go to an ECF for both the IV antibiotics and the VAC. Grafts/Implants Used: None. - Complications None. - Admit VTE Documentation VTE Present on Admission: No VTE Mechan Device Prophylaxis: SCD's VTE Pharm Prophylaxis ordered?: Yes Code Visit Surgery Charges CPT - 00698 ICD-10 - L89.314, I96, M86.651, G35
--- NOTE | 2019-11-03 13:15 | PCA ---
pt off floor
[2019-11-03 14:37] LABS: M R Staph aureus DNA By PCR Negative (Negative); Probe Check PASS; Specimen Processing Control PASS; Staph aureus DNA By PCR NEGATIVE (Negative)
--- NOTE | 2019-11-03 15:04 | NURSING ---
Upon initial post op check, dressing to buttocks noted to have copious bleeding and clots, soaking through even the bed sheets. [place], wound RN, called to bedside. Decision made to reinforce dressing and MD paged, Dr. Dougherty will come to evaluate
[2019-11-03] MEDS: Silver Nitrate (BKC) 1 EACH TOPICAL ×2 (15:54→21:59)
--- NOTE | 2019-11-03 15:54 | PCM.PN.BLA ---
Progress Note Called to the bedside because of bleeding from the operative dressing. Patient is awake and alert. Her VS were stable. BP was 98/66. Pulse was 99. I removed the operative dressing. No active bleeding was seen. Small amount of oozing was seen next to the ischial bone. Easily controlled with gauze compression and some silver nitrate chemical cauterization. About 100 ml of blood loss was seen in the wound and on the dressing. I repacked the wound with Kerlix gauze with saline followed by dry Kerlix gauze and ABD pads compression dressing. Will continue compression dressings through the weekend. Will apply the VAC on Wednesday. Will check a Hgb in the morning. STROKE Vital Signs/Narrative: Vital Signs Temp Pulse Resp BP Pulse Ox 11/03/19 14:43 98.2 F 99 18 98/66 95 11/03/19 14:15 98.3 F 98 16 118/78 99 11/03/19 14:00 96 16 122/69 H 99 11/03/19 13:45 92 16 132/95 H 100 11/03/19 13:24 97.0 F L 92 16 142/84 H 100
[2019-11-03] MEDS: HYDROmorphone 0.5 MG/0.5 ML SYRINGE IV (21:40)
--- NOTE | 2019-11-03 21:49 | PCM.PN.BLA ---
Progress Note Called to the bedside because of bleeding from the operative dressing. Patient is awake and alert. Her VS showed BP of 88/46 initially and improved to 96/54 with a fluid bolus. Pulse was 114 initially and decreased to 107 with a fluid bolus. I removed the operative dressing. The gauze was blood stained. No blood clots seen. No oozing was seen especially next to the ischial bone which showed some oozing earlier in the day. I only saw minimal oozing at the skin edge. Easily controlled with gauze compression and some silver nitrate chemical cauterization. About 100 ml of blood loss was seen on the bedding before I got there according to the nurse. I repacked the wound with Kerlix gauze with saline followed by dry gauze and ABD pad compression dressing. Will continue compression dressings through the weekend. Will apply the VAC on Wednesday. Continue increased IV fluids. Will check a stat Hgb. She is hypovolemic and is benefitting from the increased IV fluids. Will have type and cross available in case a transfusion is needed. Her hypovolemia would benefit from the PRBC as well if needed. STROKE Vital Signs/Narrative: Vital Signs Temp Pulse Resp BP Pulse Ox 11/03/19 21:29 98.5 F 107 H 20 H 96/54 L 95 11/03/19 21:16 98.7 F 114 H 20 H 88/46 L 97 11/03/19 21:00 99.0 F 99 18 88/55 L 94 11/03/19 20:05 95 11/03/19 18:42 99 F 95 18 100/62 99
[2019-11-03] MEDS: 0.9% Saline Lock 10 ML Syringe IV ×2 (22:00→22:01)
[2019-11-03 22:21] LABS: Hematocrit 27.6 % (37-47)
[2019-11-03] MEDS: Oxybutynin 5 MG Tablet 10 MG PO (23:07)
[2019-11-03] MEDS: Nystatin Powder 15gm Bottle 1 APPLIC TOPICAL (23:08)
[2019-11-04] VITALS (19 sets, daily range): BP systolic 72–119; BP diastolic 43–73; PULSE 100–118; RESP 16–20; TEMP 36.8–37.4; O2SAT 92–108
[2019-11-04] MEDS: 0.9% Normal Saline 1,000 ML 999 ML IV ×2 (03:28→16:23)
[2019-11-04] MEDS: 0.9% Saline Lock 10 ML Syringe IV ×4 (03:33→18:10)
[2019-11-04] MEDS: 0.9% Normal Saline 1,000 ML 150 ML IV (04:51)
[2019-11-04 04:53] LABS: Absolute Lymphocyte Count 3.01 X10^3/uL (0.83-4.51); Absolute Neutrophil Count 11.6 X10^3/uL (2.0-7.7); Basophil# 0.04 X10^3/uL; Basophil% 0.3 % (0-1); Eosinophil# 0.06 X10^3/uL; Eosinophils% 0.4 % (0-5); Hematocrit 30.9 % (37-47); Hemoglobin 10.1 g/dL (12.0-15.0); Lymphocyte # 3.01 X10^3/ul (4.0); Lymphocyte % 19.4 % (19-41); Mean Corp Hgb Conc 32.7 g/dL (32-36); Mean Corpuscular Hgb 28.7 pg (27.0-32.0); Mean Corpuscular Volume 87.8 fL (81-99); Mean Platelet Vol. 9.9 fl (6.2-12.0); Monocyte# 0.72 X10^3/uL; Monocyte% 4.7 % (0-10); NRBC Flagged by Analyzer 0 % (0-5); Neutrophil # 11.58 X10^3/uL (2.7-7.7); Neutrophil % 74.7 % (47-70); Platelet Count 365 K/mm3 (150-450); RBC Distribution Width CV 13.8 % (11.6-14.6); RBC Distribution Width SD 43.9 fl (35.1-43.9); Red Blood Count 3.52 M/mm3 (4.2-5.4); White Blood Count 15.5 K/mm3 (4.4-11.0)
[2019-11-04] MEDS: ACETIC ACID 1,000 ML IRRIG.SOLN 1000 ML IR (04:53)
[2019-11-04] MEDS: Baclofen 10 MG Tablet PO ×3 (05:01→21:51)
[2019-11-04 05:14] LABS: Anion Gap 6 (5-15); BUN 7 mg/dL (7-18); BUN/Creat Ratio 23.2 RATIO (10-20); Calcium,Total 7.4 mg/dL (8.5-10.1); Chloride 110 mmol/L (98-107); EST Glomerular Filtration Rate 236 mL/min (>60); Est Glom Filt Rate - Afr Amer 285 mL/min (>60); Estimated Creatinine Clearance 184.23 ml/min; Glucose 102 mg/dL (74-106); Potassium 3.8 mmol/L (3.5-5.1); Prealbumin 9.7 mg/dL (20.0-40.0); Sodium Level 138 mmol/L (136-145)
[2019-11-04] MEDS: Oxybutynin 5 MG Tablet 10 MG PO ×2 (08:03→16:30)
--- NOTE | 2019-11-04 10:07 | PCM.PROGNOTE ---
Patient Problems: Active and Suspected Problems Pressure injury of buttock, stage 4 (Acute) Leukocytosis (Acute) Sepsis (Acute) Subjective: Patient resting comfortably in bed. Patient's postop dressing noted to have copious amount of bleeding overnight, soaking through bed sheets. Dr. Dougherty came to evaluate overnight. Patient receiving 2 units PRBC. - Physical Exam Vitals/I&O's: Vital Signs Temp Pulse Resp BP Pulse Ox 98.8 F 112 H 18 114/55 L 97 11/04/19 10:01 11/04/19 10:01 11/04/19 10:01 11/04/19 10:01 11/04/19 10:01 Oxygen Flow Rate (L/min) 6 Oxygen Delivery Method Room Air Weight: 201 lb 2.008 oz Body Mass Index (BMI) 31.5 Intake and Output for Last 24 Hours 11/02/19 11/03/19 11/04/19 23:59 23:59 23:59 Intake Total 1000 / 1000 3860.00 / 4541.46 2701.66 / 2701.66 Output Total 1825 / 2375 1600 / 1600 Balance 1000 / 1000 2035.00 / 2166.46 1101.66 / 1101.66 General: Alert, Oriented x3, Cooperative HEENT: Atraumatic, PERRLA, EOMI, Normocephalic Neck: Supple, No JVD, Negative Carotid Bruits Lungs: Clear to auscultation, Normal air movement Cardiovascular: Regular rate, Regular Rhythm, Normal S1, Normal S2, No murmurs Abdomen: Bowel Sounds Present, Soft, Non Tender, Non-Distended, Obese Extremities: No clubbing, No cyanosis, No edema, Capillary Refill Less than 3 Seconds Skin: No rashes, No breakdown, - - Right ischium and sacral ulcer, dressings intact. Musculoskeletal: No Tenderness to Palpation of Joints or Extremities Neurological: Cranial nerves II-XII grossly intact, Neuro grossly intact, - - Nonambulatory at baseline. Psych/Mental Status: Normal Affect, Appropriate Microbiology Past 72 Hours 11/03/19 Unknown Biopsy - Tissue Gram Stain - Final 11/03/19 Unknown Biopsy - Tissue Wound Culture - Preliminary No growth-Final to follow 11/03/19 Unknown Biopsy - Bone Gram Stain - Final 11/03/19 Unknown Biopsy - Bone Wound Culture - Preliminary No growth-Final to follow Laboratory Results 11/03/19 22:10: Hgb 9.0 L, Hct 27.6 L 11/03/19 22:10: Blood Type B POSITIVE, Antibody Screen NEGATIVE, Crossmatch See Detail 11/03/19 : S.aureus Protein A PCR NEGATIVE, MRSA (PCR) Negative 11/04/19 04:23: WBC 15.5 H, RBC 3.52 L, Hgb 10.1 L, Hct 30.9 L, MCV 87.8, MCH 28.7, MCHC 32.7, RDW Std Deviation 43.9, RDW Coeff of Homer 13.8, Plt Count 365, MPV 9.9, Immature Gran % (Auto) 0.500, Neut % (Auto) 74.7 H, Lymph % (Auto) 19.4, [place] % (Auto) 4.7, Eos % (Auto) 0.4, Baso % (Auto) 0.3, Absolute Neuts (auto) 11.6 H, Absolute Lymphs (auto) 3.01, Nucleated RBC % 0 11/04/19 04:23: Sodium 138, Potassium 3.8, Chloride 110 H, Carbon Dioxide 22.0, Anion Gap 6, BUN 7, Creatinine 0.30 L, Estim Creat Clear Calc 184.23, Est GFR (MDRD) Af Amer 285, Est GFR (MDRD) Non-Af 236, BUN/Creatinine Ratio 23.2 H, Glucose 102, Calcium 7.4 L, Prealbumin 9.7 L Current Medications Hydrocodone Bitart/Acetaminophen ([place] 5mg-325mg) 1 - 2 tablet PO Q4H PRN PRN PRN Reason: Pain Score 4-10/10 Acetic Acid (Acetic Acid) 1,[address] [facility] Last Admin: 11/04/19 04:53 Dose: 1,000 ml Documented by: Al Hydroxide/Mg Hydroxide (Mylanta Ii) 15 - 30 ml PO Q4H PRN PRN PRN Reason: INDIGESTION Ascorbic Acid (Vitamin C) [address] [facility] Baclofen (Lioresal) [address] [facility] Last Admin: 11/04/19 05:01 Dose: 10 mg Documented by: Cholecalciferol (Vitamin D) 1,[address] [facility] Enoxaparin Sodium (Lovenox) [address] [facility] Last Admin: 11/03/19 08:40 Dose: Not Given Documented by: Hydralazine HCl (Apresoline Iv) 10 mg IV Q4H PRN PRN PRN Reason: SBP > 160 Hydromorphone HCl (Dilaudid Inj) 1 mg IV Q3H PRN PRN PRN Reason: pain 6-10 Sodium Chloride () 1,000 mls @ 150 mls/hr IV .Q6H40M [facility] Last Infusion: 11/04/19 08:27 Dose: 0 mls/hr Documented by: Piperacillin Sod/Tazobactam (Sod 3.375 gm/ Sodium Chloride) 50 mls @ 12.5 mls/hr IV Q8 [facility] Last Infusion: 11/04/19 08:28 Dose: 0 mls/hr Documented by: Sodium Chloride () 250 mls @ 15 mls/hr IV .[id number] PRN PRN Reason: Saline Flush Letrozole (Femara) 2.[address] [facility] Magnesium Hydroxide (Milk Of Magnesia) 30 ml PO DAILY PRN PRN Reason: Constipation Nutritional Formula (Lactose Free) (Ensure Enlive) 120 ml PO 4X/DAY [facility] Last Admin: 11/03/19 23:10 Dose: 120 ml Documented by: Nystatin (Mycostatin Powder) [address] [facility]; Protocol Last Admin: 11/03/19 23:08 Dose: 1 applicatio Documented by: Oxybutynin [facility] ([facility]) [facility] Last Admin: 11/04/19 08:03 Dose: 10 mg Documented by: Promethazine HCl (Phenergan) 6.25 mg IV Q4H PRN PRN PRN Reason: NAUSEA/VOMITING Sodium Chloride () 10 - 40 ml IV UD PRN PRN Reason: SALINE FLUSH Last Admin: 11/04/19 03:33 Dose: 10 ml Documented by: Medical Necessity - Tobacco Use Smoking Status: Never smoker Tobacco Use: Non-smoker Assessment/Plan All Active Problems Pressure injury of right buttock, stage 3 (Acute) Pressure injury of sacral region, stage 2 (Acute) Debility (Acute) Multiple sclerosis (Acute) Psoriasis (Acute) Bilateral lower extremity edema (Acute) History of breast cancer (Acute) Pressure injury of buttock, stage 4 (Acute) Leukocytosis (Acute) Sepsis (Acute) 1. Sepsis secondary to infected stage IV right ischium decubitus ulceration with osteomyelitis and sacral decubitus ulceration-CT of pelvis shows multiple changes in the pelvis with large tissue defect in the medial proximal right buttock. Prior cultures 10/12/2019 grew Proteus, E. coli, prevotella disiens, and bacteroides thetaiotaomicron. Continue IV Zosyn. Blood cultures pending. Wound cultures pending. Patient recently on Augmentin, Cipro and Bactrim prior to admission. Dr. Dougherty on consult, underwent excision of necrotic right ischial pressure sore with partial ostectomy for osteomyelitis 11/03/2019. Wound RN consult. PT/OT. Anticipate SNF at discharge for further wound management. Currently follows at wound center. Q2H turns. 2. Acute blood loss anemia secondary to surgical debridement related to #1-2 units PRBC ordered. Trend H&H. 3. MS with chronic debility, nonambulatory w/suprapubic catheter in place. Continue home medication regimen including baclofen. 4. Obesity-encouraged dietary modifications. Nutrition consult. DVT prophylaxis-Lovenox subcu This patient was seen by Viridiana Jensen NP-Priscilla under the supervision of Dr. Dr. Caballero.
[2019-11-04] MEDS: Enoxaparin 40 MG/0.4 ML Syringe SC (10:39)
[2019-11-04] MEDS: Nystatin Powder 15gm Bottle 1 APPLIC TOPICAL ×2 (10:40→21:51)
[2019-11-04] MEDS: Ascorbic Acid 500 MG Tablet PO (10:41)
--- NOTE | 2019-11-04 11:30 | PN.SURG_ITS ---
Patient Problems: Active and Suspected Problems Pressure injury of buttock, stage 4 (Acute) Leukocytosis (Acute) Sepsis (Acute) Subjective: Postop #1 Patient is resting comfortably. Feels a little tired. Receiving PRBC. - Physical Exam Vitals/I&O's: Vital Signs Temp Pulse Resp BP Pulse Ox 98.3 F 115 H 18 89/63 L 97 11/04/19 10:45 11/04/19 10:45 11/04/19 10:45 11/04/19 10:45 11/04/19 10:45 Oxygen Flow Rate (L/min) 6 Oxygen Delivery Method Room Air Weight: 201 lb 2.008 oz Body Mass Index (BMI) 31.5 Intake and Output for Last 24 Hours 11/02/19 11/03/19 11/04/19 23:59 23:59 23:59 Intake Total 1000 / 1000 3860.00 / 4541.46 2701.66 / 2701.66 Output Total 1825 / 2375 1600 / 1600 Balance 1000 / 1000 2035.00 / 2166.46 1101.66 / 1101.66 General: Alert, Oriented x3 HEENT: PERRLA, EOMI Oral: Moist Mucosa Neck: Supple Abdomen: Soft, Non-Distended Skin: Ulcer/ Wound - right ischial wound is stable. No bleeding noted. Redressed with saline kerlix gauze dressing. Will hold off on the VAC until Wednesday. Neurological: Cranial nerves II-XII grossly intact Psych/Mental Status: Normal Affect, Appropriate Microbiology Past 72 Hours 11/02/19 21:00 Urine Catheter - Catheter Urine Culture - Preliminary Yeast 11/03/19 Unknown Biopsy - Tissue Gram Stain - Final 11/03/19 Unknown Biopsy - Tissue Wound Culture - Preliminary No growth-Final to follow 11/03/19 Unknown Biopsy - Bone Gram Stain - Final 11/03/19 Unknown Biopsy - Bone Wound Culture - Preliminary No growth-Final to follow Laboratory Results 11/03/19 22:10: Hgb 9.0 L, Hct 27.6 L 11/03/19 22:10: Blood Type B POSITIVE, Antibody Screen NEGATIVE, Crossmatch See Detail 11/03/19 : S.aureus Protein A PCR NEGATIVE, MRSA (PCR) Negative 11/04/19 04:23: WBC 15.5 H, RBC 3.52 L, Hgb 10.1 L, Hct 30.9 L, MCV 87.8, MCH 28.7, MCHC 32.7, RDW Std Deviation 43.9, RDW Coeff of [place] 13.8, Plt Count 365, MPV 9.9, Immature Gran % (Auto) 0.500, Neut % (Auto) 74.7 H, Lymph % (Auto) 19.4, [place] % (Auto) 4.7, Eos % (Auto) 0.4, Baso % (Auto) 0.3, Absolute Neuts (auto) 11.6 H, Absolute Lymphs (auto) 3.01, Nucleated RBC % 0 11/04/19 04:23: Sodium 138, Potassium 3.8, Chloride 110 H, Carbon Dioxide 22.0, Anion Gap 6, BUN 7, Creatinine 0.30 L, Estim Creat Clear Calc 184.23, Est GFR (MDRD) Af Amer 285, Est GFR (MDRD) Non-Af 236, BUN/Creatinine Ratio 23.2 H, Glucose 102, Calcium 7.4 L, Prealbumin 9.7 L Diagnostic Data Pelvis CT 11/03/19 06:59 IMPRESSION: Multiple changes in the pelvis as described with a large tissue defect in the medial proximal right buttock. Electronically Signed: Shar Zamora, at 8:44 EST , Service support , Current Medications Hydrocodone Bitart/Acetaminophen ([place] 5mg-325mg) 1 - 2 tablet PO Q4H PRN PRN PRN Reason: Pain Score 4-10/10 Acetic Acid (Acetic Acid) 1,000 ml IR DAILY [facility] Last Admin: 11/04/19 04:53 Dose: 1,000 ml Documented by: Al Hydroxide/Mg Hydroxide (Mylanta Ii) 15 - 30 ml PO Q4H PRN PRN PRN Reason: INDIGESTION Ascorbic Acid (Vitamin C) 500 mg PO DAILY [facility] Last Admin: 11/04/19 10:41 Dose: 500 mg Documented by: Baclofen (Lioresal) 10 mg PO TID [facility] Last Admin: 11/04/19 05:01 Dose: 10 mg Documented by: Cholecalciferol (Vitamin D) 1,000 unit PO DAILY [facility] Last Admin: 11/04/19 10:41 Dose: 1,000 unit Documented by: Enoxaparin Sodium (Lovenox) 40 mg SC DAILY [facility] Last Admin: 11/04/19 10:39 Dose: 40 mg Documented by: Hydralazine HCl (Apresoline Iv) 10 mg IV Q4H PRN PRN PRN Reason: SBP > 160 Hydromorphone HCl (Dilaudid Inj) 1 mg IV Q3H PRN PRN PRN Reason: pain 6-10 Sodium Chloride () 1,000 mls @ 150 mls/hr IV .[id number] [facility] Last Infusion: 11/04/19 08:27 Dose: 0 mls/hr Documented by: Piperacillin Sod/Tazobactam (Sod 3.375 gm/ Sodium Chloride) 50 mls @ 12.5 mls/hr IV Q8 [facility] Last Infusion: 11/04/19 08:28 Dose: 0 mls/hr Documented by: Sodium Chloride () 250 mls @ 15 mls/hr IV .[id number] PRN PRN Reason: Saline Flush Letrozole (Femara) 2.5 mg PO DAILY [facility] Last Admin: 11/04/19 10:42 Dose: 2.5 mg Documented by: Magnesium Hydroxide (Milk Of Magnesia) 30 ml PO DAILY PRN PRN Reason: Constipation Nutritional Formula (Lactose Free) (Ensure Enlive) 120 ml PO 4X/DAY [facility] Last Admin: 11/04/19 10:39 Dose: 120 ml Documented by: Nystatin (Mycostatin Powder) 1 applic TOPICAL BID [facility]; Protocol Last Admin: 11/04/19 10:40 Dose: 1 applicatio Documented by: [facility]ynin [facility] Admin: 11/04/19 08:03 Dose: 10 mg Documented by: Promethazine HCl (Phenergan) 6.25 mg IV Q4H PRN PRN PRN Reason: NAUSEA/VOMITING Sodium Chloride () 10 - 40 ml IV UD PRN PRN Reason: SALINE FLUSH Last Admin: 11/04/19 03:33 Dose: 10 ml Documented by: Medical Necessity - Tobacco Use Smoking Status: Never smoker Tobacco Use: Non-smoker Assessment/Plan All Active Problems Pressure injury of right buttock, stage 3 (Acute) Pressure injury of sacral region, stage 2 (Acute) Debility (Acute) Multiple sclerosis (Acute) Psoriasis (Acute) Bilateral lower extremity edema (Acute) History of breast cancer (Acute) Pressure injury of buttock, stage 4 (Acute) Leukocytosis (Acute) Sepsis (Acute) 1. Necrotic right ischial pressure sore, Stage IV. 2. Osteomyelitis. 3. Multiple sclerosis. 4. s/p excision necrotic right ischial pressure sore, Stage IV, with partial ostectomy for osteomyelitis. 5. Anemia of chronic disease, acute on chronic, stable. 6. Postop bleeding, stable. 7. Postop hypotension. Right ischial wound is stable today. No bleeding noted. Placed saline Kerllix dressing today. Will have VAC placed on Wednesday. Had a couple of bleeding episodes yesterday after surgery. There was about 200 ml of blood in the wound after these episodes. There was an area of oozing next to the bone and at the skin edges which were controlled with silver nitrate chemical cauterization and gauze compression. Redressed the wound with a saline Kerlix dressing. Her Hgb dropped to 9. She has some hypovolemia with decreased BP and increased Pulse. Besides increasing IV fluids, she is receiving PRBC to help with the hypovolemia and to help with oxygenation of tissues for improved healing. Her repeat Hgb is 10.1. Operative cultures are negative thus far. She is currently on Zosyn. Anticipate osteomyelitis and the need for IV antibiotics. So a PICC line will be placed today. Prealbumin was 9.7. Encourage nutritional supplementation with protein to help the healing process.
--- NOTE | 2019-11-04 11:34 | NURSING ---
This nurse called clinical transformation specialist and awaiting call back for Time that they will come insert the PICC line.
[2019-11-04] MEDS: LORazepam 0.5 MG Tablet PO (12:58)
--- NOTE | 2019-11-04 14:12 | NURSING ---
Gibran MELGAR from [facility] has been in room attempting to insert PICC line. This nurse was called back by RAMÓN Leary. Gibran MELGAR states that there is a block that is not letting him advance the PICC line. So he is unable to insert the PICC line. Gibran states that he can do a midline instead but if she needs a PICC down the road, pt will probably needed a tunneled PICC. Right now, pt has a peripheral IV site and then will also have the midline once harness brusher inserts.
--- NOTE | 2019-11-04 16:35 | RAD_ITS ---
STUDY: X-RAY CHEST REASON FOR EXAM: Female, 64 years old. Dyspnea TECHNIQUE: Single AP portable view of the chest. COMPARISON: 11/02/2019. FINDINGS: The lungs are clear and expanded. There is no demonstrated pleural abnormality. Normal size heart. Normal mediastinum and yfn. Normal visualized pulmonary arteries. Normal visualized aortic arch and descending thoracic aorta. There is a dextroscoliosis of the thoracic spine. Normal visualized ribs, clavicles, and shoulders. There is no demonstrated abnormality of the visualized soft tissue structures of the upper abdomen. There are clips in the right axilla consistent with lymphadenectomy for breast cancer. RAD/Chest 1 View (Portable) IMPRESSION: No acute chest disease. Electronically Signed: Cesar Burch MD at 17:21 EST , Service support ,
[2019-11-04] MEDS: 0.9% Normal Saline 1,000 ML 100 ML IV (19:13)
[2019-11-04] MEDS: LACTOBACILLUS RHAMNOSUS GG 1 EACH CAPSULE PO (20:36)
[2019-11-05] VITALS (22 sets, daily range): BP systolic 82–110; BP diastolic 40–76; PULSE 106–124; RESP 14–21; TEMP 36.7–37.6; O2SAT 91–100
[2019-11-05] MEDS: 0.9% Normal Saline 1,000 ML 100 ML IV ×3 (05:06→21:49)
[2019-11-05] MEDS: Baclofen 10 MG Tablet PO ×3 (05:08→21:36)
--- NOTE | 2019-11-05 05:55 | RAD_ITS ---
STUDY: X-RAY CHEST REASON FOR EXAM: Female, 64 years old. Worsening shortness of breath TECHNIQUE: Single AP portable view of the chest. COMPARISON: 11/04/2019 FINDINGS: The lungs are clear and expanded. There is no demonstrated pleural abnormality. Normal size heart. Normal mediastinum and yfn. Normal visualized pulmonary arteries. Normal visualized aortic arch and descending thoracic aorta. There is a dextroscoliosis of the thoracic spine. Normal visualized ribs, clavicles, and shoulders. There is no demonstrated abnormality of the visualized soft tissue structures of the upper abdomen. There are clips in the right axilla consistent with lymphadenectomy for breast cancer. RAD/Chest 1 View (Portable) IMPRESSION: No interval change Electronically Signed: Everardo Bello MD at 8:42 EST , Service support ,
[2019-11-05 08:07] LABS: Absolute Neutrophil Count 11.2 X10^3/uL (2.0-7.7); Basophil# 0.03 X10^3/uL; Basophil% 0.2 % (0-1); Eosinophil# 0.03 X10^3/uL; Eosinophils% 0.2 % (0-5); Hematocrit 31.4 % (37-47); Hemoglobin 10.3 g/dL (12.0-15.0); Lymphocyte % 15.4 % (19-41); Mean Corp Hgb Conc 32.8 g/dL (32-36); Mean Corpuscular Hgb 28.6 pg (27.0-32.0); Mean Corpuscular Volume 87.2 fL (81-99); Mean Platelet Vol. 9.7 fl (6.2-12.0); Monocyte# 0.79 X10^3/uL; Monocyte% 5.5 % (0-10); NRBC Flagged by Analyzer 0 % (0-5); Neutrophil # 11.21 X10^3/uL (2.7-7.7); Neutrophil % 78.2 % (47-70); Platelet Count 299 K/mm3 (150-450); RBC Distribution Width CV 13.9 % (11.6-14.6); RBC Distribution Width SD 43.8 fl (35.1-43.9); White Blood Count 14.3 K/mm3 (4.4-11.0)
[2019-11-05 08:18] LABS: Anion Gap 4 (5-15); BUN 3 mg/dL (7-18); BUN/Creat Ratio 12.9 RATIO (10-20); Calcium,Total 7.8 mg/dL (8.5-10.1); Chloride 112 mmol/L (98-107); Creatinine, Serum 0.23 mg/dL (0.55-1.02); EST Glomerular Filtration Rate 318 mL/min (>60); Est Glom Filt Rate - Afr Amer 385 mL/min (>60); Glucose 112 mg/dL (74-106); Potassium 3.1 mmol/L (3.5-5.1); Sodium Level 144 mmol/L (136-145)
--- NOTE | 2019-11-05 08:19 | CT_ITS ---
STUDY: CTA CHEST REASON FOR EXAM: Female, 64 years old. Acute substernal chest pain, history of breast carcinoma RADIATION DOSAGE (If Supplied By Facility): CTDIvol = ( 16.14 ) mGy, DLP = ( 494.08 ) mGycm TECHNIQUE: The examination was performed with the intravenous administration of 100cc isovue 370. Post-processing of the angiographic images was performed, with multiplanar reformation and 3D reconstruction. Individualized dose optimization techniques were used for this CT. COMPARISON: None. FINDINGS: Normal enhancement of the main pulmonary artery and right and left pulmonary arteries. Normal enhancement of the bilateral peripheral pulmonary arteries. There is no demonstrated pulmonary embolism. There is atherosclerotic calcification of the aortic arch with tortuosity. There is no demonstrated aortic dissection. Normal heart and pericardium. There are calcifications of the coronary arteries. Normal mediastinum. Normal hilar regions. There is peribronchial thickening. The lungs are well expanded. Chronic interstitial changes in both lung carrion with small left pleural effusion and bibasilar atelectasis. Normal pleura. Normal chest wall structures. There are degenerative changes of thoracic spine. Normal visualized upper abdomen. CT/CTA Chest W/WO Contrast IMPRESSION: No demonstrated PE, or thoracic aortic aneurysm or dissection Calcified coronary vessels Chronic interstitial changes in both lung carrion with evidence of chronic bronchitis, small left pleural effusion and bibasilar atelectasis Electronically Signed: Everardo Bello MD at 9:35 EST , Service support ,
[2019-11-05] MEDS: 0.9% Saline Lock 10 ML Syringe IV (09:31)
[2019-11-05] MEDS: Enoxaparin 100 MG/ML Syringe 90 MG SC ×2 (09:36→17:42)
[2019-11-05] MEDS: Acetaminophen 325 MG Tablet 650 MG PO (10:17)
[2019-11-05] MEDS: Ascorbic Acid 500 MG Tablet PO (10:28)
[2019-11-05] MEDS: Oxybutynin 5 MG Tablet 10 MG PO ×2 (10:28→17:42)
[2019-11-05 10:39] LABS: Lactic Acid 0.7 mmol/L (0.4-1.9)
[2019-11-05 10:44] LABS: Mucous, Urine 0 SEEN /hpf (<or=2+); Red Blood Cells-Urine 0 SEEN /hpf (0-5)
--- NOTE | 2019-11-05 10:51 | PCM.CON.CC ---
Reason for Consult Date of Consultation: 11/05/19 Reason for Consultation: Hypotensive, questionable septic, recent OR and anemia History of Present Illness: The patient is a 64-year-old female, with a history as outlined below, who initially presented to the emergency department on November 02 with worsening sacral decubitus wounds that were being followed on an outpatient basis in the wound care center. The patient has a history of advanced MS, which has left her in a state of immobility. She is primarily bedbound at her baseline. She also has a history of breast cancer for which she received chemotherapy. The patient was evaluated by Dr. trejo and taken to the OR on November 03 where she underwent excision of a necrotic right ischial pressure sore with partial ostectomy for osteomyelitis. Estimated intraoperative blood loss was noted to be 150 mL's. The patient had a great deal of bleeding from the operative wound postoperatively. It does appear that the patient has had systolic pressures ranging from 70 upwards to 100 mmHg over the last several days. She is currently documented to be overall net +4.6 L for the hospital admission. While the patient did receive transfusion of blood products, her hemoglobin kaylah was only noted to be 9.0 g/dL on November 03. Her hemoglobin this morning was noted to be 10.3 g/dL. The patient reported to me this morning that she feels relatively well and that her blood pressure typically runs on the low side and that she routinely has an elevated heart rate. The patient has been on IV Zosyn over the course of her hospital stay. 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, stage 2 (Chronic) Allergies bacitracin [From Neosporin ([id number])] Allergy (Verified 11/02/19 17:16) Rash neomycin [From Neosporin ([id number])] Allergy (Verified 11/02/19 17:16) Rash ondansetron [From Zofran] Allergy (Verified 11/02/19 17:16) Other PALPITATIONS polymyxin B [From Neosporin ([id number])] Allergy (Verified 11/02/19 17:16) Rash Sulfa (Sulfonamide Antibiotics) Allergy (Verified 11/02/19 17:16) Rash Home Medications: Ambulatory Orders Medication Instructions Recorded Acetic Acid 1 applic IRRIGATION DAILY 11/03/19 Ascorbic Acid [Vitamin C] 1 tab PO DAILY 11/03/19 Baclofen 1 - 2 tab PO Q8H PRN PRN 11/03/19 Cholecalciferol (VIT D3) [Vitamin 1,000 unit PO DAILY 11/03/19 D] Cholestyramine (with Sugar) 1 packet PO DAILY 11/03/19 [Cholestyramine Powder] Cranberry Fruit Extract [Cranberry] 200 mg PO DAILY 11/03/19 L. Rhamnosus GG/Inulin [Culturelle 1 ea PO QODAY 11/03/19 Probiotics Capsule] Letrozole 1 tab PO DAILY 11/03/19 Nitrofurantoin Macrocrystal 1 tab PO DAILY 11/03/19 [Macrodantin] Nystatin Powder [Mycostatin Powder] 1 applic OTHER DAILY PRN PRN 11/03/19 Nystatin/Triamcin 1 applic OTHER DAILY 11/03/19 [Nystatin-Triamcinolone Cream] Oxybutynin [Ditropan] 2 tab PO BID 11/03/19 Vitamin E 400 unit PO DAILY 11/03/19 Surgical History: mastectomy - right, - - Suprapubic catheter, skin debridements Lives: Spouse/ Significant Other Smoking Status: Never smoker Tobacco Use: Non-smoker Alcohol: None Drugs: None - *Family History Maternal History Items: Cancer Paternal History Items: Heart Disease Review of Systems Constitutional: Reports: Fatigue. Denies: Chills, Fever Eyes: Denies: Blurred vision, Double vision HEENT: Denies: Head Aches, Sinus Congestion, Sinus Drainage Cardiovascular: Denies: Chest Pain, Palpitations Respiratory: Denies: Cough, Shortness of breath at rest, Sputum production Gastrointestinal: Denies: Abdominal Pain, Nausea, Vomiting Genitourinary: Denies: Dysuria Musculoskeletal: Reports: - - Surgical site pain Skin: Reports: Skin Changes, Wounds Neurological: Reports: -. Denies: Change in Speech, Slurred speech Psychiatric: Denies: Anxiety, Depression, Homicidal Ideations, Suicidal Ideations Hematologic/ Lymphatic: Reports: Anemia, Hx of blood transfusion Patient Problems: Active and Suspected Problems Pressure injury of buttock, stage 4 (Acute) Leukocytosis (Acute) Sepsis (Acute) Objective: The patient's most recent lab work, culture data and imaging studies have all been personally reviewed. - Physical Exam Vitals/I&O's: Vital Signs Temp Pulse Resp BP Pulse Ox 99.3 F H 110 H 16 86/50 L 91 11/05/19 09:35 11/05/19 09:35 11/05/19 09:35 11/05/19 09:35 11/05/19 09:35 Oxygen Flow Rate (L/min) 6 Oxygen Delivery Method Room Air Weight: 201 lb 2.008 oz Body Mass Index (BMI) 31.5 Intake and Output for Last 24 Hours 11/03/19 11/04/19 11/05/19 23:59 23:59 23:59 Intake Total 3860.00 / 4541.46 5639.33 / 6659.33 3058.33 / 3058.33 Output Total 1825 / 2375 3350 / 5750 3930 / 3930 Balance 2035.00 / 2166.46 2289.33 / 909.33 -871.67 / -871.67 General: Alert, Cooperative, No apparent distress, - - Resting comfortably in bed. HEENT: Atraumatic, PERRLA, Normocephalic Oral: No Gingival or Mucosal Lesions/ Ulcerations Neck: Supple, No Nodes, Trachea Midline Lungs: No rhonchi, No wheeze, No rales, Diminished Cardiovascular: Normal S1, Normal S2, No murmurs, Tachycardic Abdomen: Soft, Non Tender, Non-Distended Extremities: No clubbing, No cyanosis Skin: Ulcer/ Wound Musculoskeletal: No Tenderness to Palpation of Joints or Extremities Lymphatic: No Cervical, Supraclavicular, or Inguinal Adenopathy Neurological: - - Baseline neurological debility. No focal deficits. Psych/Mental Status: Normal Affect, Appropriate Labs (Last 48 Hours) 11/03/19 11/03/19 11/03/19 22:10 22:10 22:10 WBC RBC Hgb 9.0 L Hct 27.6 L MCV MCH MCHC RDW Std Deviation RDW Coeff of Homer Plt Count MPV Immature Gran % (Auto) Neut % (Auto) Lymph % (Auto) [place] % (Auto) Eos % (Auto) Baso % (Auto) Absolute Neuts (auto) Absolute Lymphs (auto) Nucleated RBC % Sodium Potassium Chloride Carbon Dioxide Anion Gap BUN Creatinine Estim Creat Clear Calc Est GFR (MDRD) Af Amer Est GFR (MDRD) Non-Af BUN/Creatinine Ratio Glucose Lactic Acid Calcium Prealbumin Urine Color Urine Clarity Urine pH Ur Specific [place] Urine Protein Urine Glucose (UA) Urine Ketones Urine Occult Blood Urine Nitrite Urine Bilirubin Urine Urobilinogen Ur Leukocyte Esterase Urine RBC Urine WBC Ur Squamous Epith Cells Urine Bacteria Urine Mucus S.aureus Protein A PCR MRSA (PCR) Blood Type B POSITIVE Antibody Screen NEGATIVE Crossmatch See Detail See Detail 11/03/19 11/04/19 11/04/19 Unknown 04:23 04:23 WBC 15.5 H RBC 3.52 L Hgb 10.1 L Hct 30.9 L MCV 87.8 MCH 28.7 MCHC 32.7 RDW Std Deviation 43.9 RDW Coeff of Homer 13.8 Plt Count 365 MPV 9.9 Immature Gran % (Auto) 0.500 Neut % (Auto) 74.7 H Lymph % (Auto) 19.4 [place] % (Auto) 4.7 Eos % (Auto) 0.4 Baso % (Auto) 0.3 Absolute Neuts (auto) 11.6 H Absolute Lymphs (auto) 3.01 Nucleated RBC % 0 Sodium 138 Potassium 3.8 Chloride 110 H Carbon Dioxide 22.0 Anion Gap 6 BUN 7 Creatinine 0.30 L Estim Creat Clear Calc 184.23 Est GFR (MDRD) Af Amer 285 Est GFR (MDRD) Non-Af 236 BUN/Creatinine Ratio 23.2 H Glucose 102 Lactic Acid Calcium 7.4 L Prealbumin 9.7 L Urine Color Urine Clarity Urine pH Ur Specific [place] Urine Protein Urine Glucose (UA) Urine Ketones Urine Occult Blood Urine Nitrite Urine Bilirubin Urine Urobilinogen Ur Leukocyte Esterase Urine RBC Urine WBC Ur Squamous Epith Cells Urine Bacteria Urine Mucus S.aureus Protein A PCR NEGATIVE MRSA (PCR) Negative Blood Type Antibody Screen Crossmatch 11/05/19 11/05/19 11/05/19 07:47 07:47 10:06 WBC 14.3 H RBC 3.60 L Hgb 10.3 L Hct 31.4 L MCV 87.2 MCH 28.6 MCHC 32.8 RDW Std Deviation 43.8 RDW Coeff of Homer 13.9 Plt Count 299 MPV 9.7 Immature Gran % (Auto) 0.500 Neut % (Auto) 78.2 H Lymph % (Auto) 15.4 L [place] % (Auto) 5.5 Eos % (Auto) 0.2 Baso % (Auto) 0.2 Absolute Neuts (auto) 11.2 H Absolute Lymphs (auto) 2.20 Nucleated RBC % 0 Sodium 144 Potassium 3.1 L Chloride 112 H Carbon Dioxide 28.0 Anion Gap 4 L BUN 3 L Creatinine 0.23 L Estim Creat Clear Calc 240.30 Est GFR (MDRD) Af Amer 385 Est GFR (MDRD) Non-Af 318 BUN/Creatinine Ratio 12.9 Glucose 112 H Lactic Acid 0.7 Calcium 7.8 L Prealbumin Urine Color Urine Clarity Urine pH Ur Specific [place] Urine Protein Urine Glucose (UA) Urine Ketones Urine Occult Blood Urine Nitrite Urine Bilirubin Urine Urobilinogen Ur Leukocyte Esterase Urine RBC Urine WBC Ur Squamous Epith Cells Urine Bacteria Urine Mucus S.aureus Protein A PCR MRSA (PCR) Blood Type Antibody Screen Crossmatch 11/05/19 10:15 WBC RBC Hgb Hct MCV MCH MCHC RDW Std Deviation RDW Coeff of Homer Plt Count MPV Immature Gran % (Auto) Neut % (Auto) Lymph % (Auto) [place] % (Auto) Eos % (Auto) Baso % (Auto) Absolute Neuts (auto) Absolute Lymphs (auto) Nucleated RBC % Sodium Potassium Chloride Carbon Dioxide Anion Gap BUN Creatinine Estim Creat Clear Calc Est GFR (MDRD) Af Amer Est GFR (MDRD) Non-Af BUN/Creatinine Ratio Glucose Lactic Acid Calcium Prealbumin Urine Color Pending Urine Clarity Pending Urine pH Pending Ur Specific [place] Pending Urine Protein Pending Urine Glucose (UA) Pending Urine Ketones Pending Urine Occult Blood Pending Urine Nitrite Pending Urine Bilirubin Pending Urine Urobilinogen Pending Ur Leukocyte Esterase Pending Urine RBC Pending Urine WBC Pending Ur Squamous Epith Cells Pending Urine Bacteria Pending Urine Mucus Pending S.aureus Protein A PCR MRSA (PCR) Blood Type Antibody Screen Crossmatch Microbiology 11/02/19 21:00 Urine Catheter - Catheter Urine Culture - Final Presumptive C albicans 11/03/19 Unknown Biopsy - Tissue Gram Stain - Final 11/03/19 Unknown Biopsy - Tissue Wound Culture - Preliminary No growth-Final to follow 11/03/19 Unknown Biopsy - Bone Gram Stain - Final 11/03/19 Unknown Biopsy - Bone Wound Culture - Preliminary No growth-Final to follow Clinical Impression(s) from Imaging Studies Chest X-Ray 11/02/19 18:45 IMPRESSION: No acute cardiopulmonary disease. Electronically Signed: Trevor Palmer DO at 19:01 EST Tel [phone], Service support , Pelvis CT 11/03/19 06:59 IMPRESSION: Multiple changes in the pelvis as described with a large tissue defect in the medial proximal right buttock. Electronically Signed: Shar Zamora, at 8:44 EST , Service support , Chest X-Ray 11/04/19 16:35 IMPRESSION: No acute chest disease. Electronically Signed: Cesar Burch MD at 17:21 EST , Service support , ADDENDUM: 11/04/19 1753 Chest X-Ray 11/05/19 05:55 IMPRESSION: No interval change Electronically Signed: Everardo Bello MD at 8:42 EST , Service support , Chest CTA 11/05/19 08:19 IMPRESSION: No demonstrated PE, or thoracic aortic aneurysm or dissection Calcified coronary vessels Chronic interstitial changes in both lung carrion with evidence of chronic bronchitis, small left pleural effusion and bibasilar atelectasis Electronically Signed: Everardo Bello MD at 9:35 EST , Service support , Current Medications Acetaminophen (Tylenol) 650 mg PO Q6H PRN PRN PRN Reason: fever/Noncardiac pain(4-10/10) Last Admin: 11/05/19 10:17 Dose: 650 mg Documented by: Hydrocodone Bitart/Acetaminophen ([place] 5mg-325mg) 1 - 2 tablet PO Q4H PRN PRN PRN Reason: Pain Score 4-10/10 Acetic Acid (Acetic Acid) 1,000 ml IR DAILY JESUS Last Admin: 11/04/19 04:53 Dose: 1,000 ml Documented by: Al Hydroxide/Mg Hydroxide (Mylanta Ii) 15 - 30 ml PO Q4H PRN PRN PRN Reason: INDIGESTION Ascorbic Acid (Vitamin C) 500 mg PO DAILY [facility] Last Admin: 11/05/19 10:28 Dose: 500 mg Documented by: Baclofen (Lioresal) 10 mg PO TID [facility] Last Admin: 11/05/19 05:08 Dose: 10 mg Documented by: Cholecalciferol (Vitamin D) 1,000 unit PO DAILY [facility] Last Admin: 11/05/19 10:28 Dose: 1,000 unit Documented by: Enoxaparin Sodium (Lovenox) 90 mg SC Q12@0600,1800 [facility] Last Admin: 11/05/19 09:36 Dose: 90 mg Documented by: Hydralazine HCl (Apresoline Iv) 10 mg IV Q4H PRN PRN PRN Reason: SBP > 160 Hydromorphone HCl (Dilaudid Inj) 1 mg IV Q3H PRN PRN PRN Reason: pain 6-10 Sodium Chloride () 1,000 mls @ 100 mls/hr IV .Q10H [facility] Last Admin: 11/05/19 05:06 Dose: 100 mls/hr Documented by: Piperacillin Sod/Tazobactam (Sod 3.375 gm/ Sodium Chloride) 50 mls @ 12.5 mls/hr IV Q8 [facility] Last Admin: 11/05/19 05:06 Dose: 12.5 mls/hr Documented by: Sodium Chloride () 250 mls @ 15 mls/hr IV .[id number] PRN PRN Reason: Saline Flush Last Admin: 11/04/19 22:28 Dose: 15 mls/hr Documented by: Vancomycin IV Pharmacy to Dose (1 ea/ Sodium Chloride) 500 mls @ 250 mls/hr IV X1 PRN; Protocol PRN Reason: Rx to Dose Vancomycin HCl 2,000 mg/ (Sodium Chloride) 540 mls @ 250 mls/hr IV X1 ONE Stop: 11/05/19 12:39 Last Admin: 11/05/19 10:42 Dose: 250 mls/hr Documented by: Vancomycin HCl 1,250 mg/ (Sodium Chloride) 275 mls @ 167 mls/hr IV Q12H [facility] Letrozole (Femara) 2.5 mg PO DAILY [facility] Last Admin: 11/05/19 10:29 Dose: 2.5 mg Documented by: Magnesium Hydroxide (Milk Of Magnesia) 30 ml PO DAILY PRN PRN Reason: Constipation Nutritional Formula (Lactose Free) (Ensure Enlive) 120 ml PO 4X/DAY [facility] Last Admin: 11/05/19 10:29 Dose: Not Given Documented by: Nystatin (Mycostatin Powder) 1 applic TOPICAL BID [facility]; Protocol Last Admin: 11/04/19 21:51 Dose: 1 applicatio Documented by: Oxybutynin [facility] ([facility]) [facility] Last Admin: 11/05/19 10:28 Dose: 10 mg Documented by: Phenol/Menthol (Chloraseptic (Bkc)) 5 spray MM Q2H PRN PRN PRN Reason: sore throat Promethazine HCl (Phenergan) 6.25 mg IV Q4H PRN PRN PRN Reason: NAUSEA/VOMITING Sodium Chloride () 10 - 40 ml IV UD PRN PRN Reason: SALINE FLUSH Last Admin: 11/05/19 09:31 Dose: 30 ml Documented by: Throat Lozenges (Cepacol Sore Throat Lozenge) 2 lozenge MUCOUS MEM Q2H PRN PRN PRN Reason: SORE THROAT Assessment/Plan Active and Suspected Problems Pressure injury of buttock, stage 4 (Acute) Leukocytosis (Acute) Sepsis (Acute) RECOMMENDATIONS: 1. Monitor hemodynamics in ICU setting. If needed, vasopressor support will be initiated. 2. Recommend adding vancomycin to current antimicrobial regimen. 3. Electrolyte repletion. 4. Continue to monitor blood counts daily. I do not see an indication for transfusion of blood products at the current time. 5. Continue appropriate DVT prophylaxis. IMPRESSIONS: 1. Sepsis secondary to infected pressure ulcer, now s/p surgical excision The patient was taken to the OR on November 03 and appears to have been relatively hypotensive over the last 2 days. However, the patient does report that her baseline blood pressure runs on the low side and she is routinely tachycardic. The patient has been on broad-spectrum antimicrobial therapy, with the exception of MRSA coverage. Given her continued hemodynamic instability, I would recommend empirically starting vancomycin. Her blood counts are currently stable and the patient is overall net positive for the hospital admission. For now, the patient will be monitored clinically in the ICU setting. She is mentating appropriately. I would recommend continuing to monitor blood counts closely with plans for transfusion of blood products, if needed. Levophed can be initiated if hemodynamics remain tenuous. 2. Hypotension Although the patient has low blood pressures at her baseline, her most recent check revealed parameters that were beyond the lower limits of what is considered normal for her. The patient has been receiving supplemental IV fluids. We will plan to recheck an H&H to ensure adequacy of blood counts. What is reassuring is that the patient is mentating appropriately and has no significant complaints. If needed, vasopressor support can be initiated. 3. Anemia Recheck H&H upon transfer to ICU. If the patient were to have a significant amount of blood loss from her wound, empiric transfusion of blood products can be considered. 4. Hypokalemia Electrolyte repletion as ordered. Recheck levels in the morning. 5. Questionable Sleep Disorder Breathing The patient has symptoms concerning for SIMON, but has never been formally evaluated. Empiric BIPAP therapy can be offered while admitted to the hospital with outpatient PSG, if the patient is agreeable. 6. Baseline MS/history of breast cancer/obesity Complicates care, management, recovery and prognosis. This note was generated with [employer] dictation software. It may contain incorrect words, spelling, and punctuation that were not noted in checking the note before signing. Code Visit Inpatient E&M: 48178 Init Hosp L3
[2019-11-05 10:56] LABS: Color, Urine Straw (Yellow); Glucose, Dipstick Normal (Normal); Ketone-Dipstick 5 mg/dl (Negative); Leukocyte Esterase-Dipstick 100 /ul (Negative); Nitrite-Dipstick Negative (Negative); Occult Blood-Urine Negative /ul (Negative); Protein-Dipstick Negative (Negative); Urine Bilirubin Dipstick Negative (Negative); Urine Clarity Clear (Clear); Urine Urobilinogen Normal (Normal)
[2019-11-05 11:04] LABS: Bacteria RARE /hpf (None Seen); Squamous Epithelial Cells - UA 0-5 SEEN /hpf (5-10); White Blood Cells 0-5 SEEN /hpf (0-5)
[2019-11-05 11:05] LABS: Yeast-Urine 2+ /hpf (None Seen)
[2019-11-05] MEDS: Nystatin Powder 15gm Bottle 1 APPLIC TOPICAL ×2 (11:38→21:36)
[2019-11-05] MEDS: ACETIC ACID 1,000 ML IRRIG.SOLN 1000 ML IR (11:39)
--- NOTE | 2019-11-05 11:58 | NURSING ---
1015- report called to Kareem in ICU, notified that another [employer] is on the way in and they will call with bed when she is here 1100- report called to Maxine in ICU, pt to go to ICU room 7 notified about pt transfer to ICU room 7. his cell phone number is [phone] however, if the call drops, he states to try the land-line listed in the demographics sheet as there is poor salon receptionist at their house.
--- NOTE | 2019-11-05 12:09 | NURSING ---
received patient in ICU at 1115 assumed care of patient at this time
--- NOTE | 2019-11-05 12:20 | PCM.PROGNOTE ---
Patient Problems: Active and Suspected Problems Pressure injury of buttock, stage 4 (Acute) Leukocytosis (Acute) Sepsis (Acute) Subjective: Patient seen and examined. Plan for transfer to ICU given persistent hypotension despite IV fluids, PRBC. Patient tearful. Denies shortness of breath, lightheadedness or other current symptoms. - Physical Exam Vitals/I&O's: Vital Signs Temp Pulse Resp BP Pulse Ox 98.7 F 109 H 20 H 99/61 97 11/05/19 12:00 11/05/19 12:00 11/05/19 12:00 11/05/19 12:00 11/05/19 12:00 Oxygen Flow Rate (L/min) 6 Oxygen Delivery Method Room Air Weight: 201 lb 2.008 oz Body Mass Index (BMI) 31.5 Intake and Output for Last 24 Hours 11/03/19 11/04/19 11/05/19 23:59 23:59 23:59 Intake Total 3860.00 / 4541.46 5639.33 / 6659.33 5869.25 / 5869.25 Output Total 1825 / 2375 3350 / 5750 6930 / 6930 Balance 2035.00 / 2166.46 2289.33 / 909.33 -1060.75 / -1060.75 General: Alert, Oriented x3, Cooperative HEENT: Atraumatic, PERRLA, EOMI, Normocephalic Neck: Supple, No JVD, Negative Carotid Bruits Lungs: Clear to auscultation, Diminished Cardiovascular: Regular Rhythm, Normal S1, Normal S2, No murmurs, Tachycardic Abdomen: Bowel Sounds Present, Soft, Non Tender, Non-Distended, Obese Extremities: No clubbing, No cyanosis, No edema, Capillary Refill Less than 3 Seconds Skin: No rashes, No breakdown, - - Right ischium and sacral ulcer, dressings intact. Musculoskeletal: No Tenderness to Palpation of Joints or Extremities Neurological: Cranial nerves II-XII grossly intact, Neuro grossly intact, - - Nonambulatory at baseline. Psych/Mental Status: - - Tearful Microbiology Past 72 Hours 11/03/19 Unknown Biopsy - Bone Gram Stain - Final 11/03/19 Unknown Biopsy - Bone Wound Culture - Preliminary Gram Positive Cocci 11/03/19 Unknown Biopsy - Tissue Gram Stain - Final 11/03/19 Unknown Biopsy - Tissue Wound Culture - Preliminary 11/02/19 21:00 Urine Catheter - Catheter Urine Culture - Final Presumptive C albicans Laboratory Results 11/03/19 22:10: Crossmatch See Detail 11/03/19 22:10: Crossmatch See Detail 11/05/19 07:47: WBC 14.3 H, RBC 3.60 L, Hgb 10.3 L, Hct 31.4 L, MCV 87.2, MCH 28.6, MCHC 32.8, RDW Std Deviation 43.8, RDW Coeff of Homer 13.9, Plt Count 299, MPV 9.7, Immature Gran % (Auto) 0.500, Neut % (Auto) 78.2 H, Lymph % (Auto) 15.4 L, [place] % (Auto) 5.5, Eos % (Auto) 0.2, Baso % (Auto) 0.2, Absolute Neuts (auto) 11.2 H, Absolute Lymphs (auto) 2.20, Nucleated RBC % 0 11/05/19 07:47: Sodium 144, Potassium 3.1 L, Chloride 112 H, Carbon Dioxide 28.0, Anion Gap 4 L, BUN 3 L, Creatinine 0.23 L, Estim Creat Clear Calc 240.30, Est GFR (MDRD) Af Amer 385, Est GFR (MDRD) Non-Af 318, BUN/Creatinine Ratio 12.9, Glucose 112 H, Calcium 7.8 L 11/05/19 10:06: Lactic Acid 0.7 11/05/19 10:15: Urine Color Straw, Urine Clarity Clear, Urine pH 7.0, Ur Specific [place] 1.010, Urine Protein Negative, Urine Glucose (UA) Normal, Urine Ketones 5 H, Urine Occult Blood Negative, Urine Nitrite Negative, Urine Bilirubin Negative, Urine Urobilinogen Normal, Ur Leukocyte Esterase 100 H, Urine RBC 0 SEEN, Urine WBC 0-5 SEEN, Ur Squamous Epith Cells 0-5 SEEN, Urine Bacteria RARE, Urine Mucus 0 SEEN, Urine Yeast 2+ Current Medications Acetaminophen (Tylenol) 650 mg PO Q6H PRN PRN PRN Reason: fever/Noncardiac pain(4-09/07) Last Admin: 11/05/19 10:17 Dose: 650 mg Documented by: Hydrocodone Bitart/Acetaminophen ([place] 5mg-325mg) 1 - 2 tablet PO Q4H PRN PRN PRN Reason: Pain Score 4-10/10 Acetic Acid (Acetic Acid) 1,000 ml IR DAILY [facility] Last Admin: 11/05/19 11:39 Dose: 1,000 ml Documented by: Al Hydroxide/Mg Hydroxide (Mylanta Ii) 15 - 30 ml PO Q4H PRN PRN PRN Reason: INDIGESTION Ascorbic Acid (Vitamin C) 500 mg PO DAILY [facility] Last Admin: 11/05/19 10:28 Dose: 500 mg Documented by: Baclofen (Lioresal) 10 mg PO TID [facility] Last Admin: 11/05/19 05:08 Dose: 10 mg Documented by: Cholecalciferol (Vitamin D) 1,000 unit PO DAILY [facility] Last Admin: 11/05/19 10:28 Dose: 1,000 unit Documented by: Enoxaparin Sodium (Lovenox) 90 mg SC Q12@0600,1800 [facility] Last Admin: 11/05/19 09:36 Dose: 90 mg Documented by: Hydralazine HCl (Apresoline Iv) 10 mg IV Q4H PRN PRN PRN Reason: SBP > 160 Hydromorphone HCl (Dilaudid Inj) 1 mg IV Q3H PRN PRN PRN Reason: pain 6-10 Sodium Chloride () 1,000 mls @ 100 mls/hr IV .Q10H [facility] Last Admin: 11/05/19 11:52 Dose: 100 mls/hr Documented by: Piperacillin Sod/Tazobactam (Sod 3.375 gm/ Sodium Chloride) 50 mls @ 12.5 mls/hr IV Q8 [facility] Last Infusion: 11/05/19 09:10 Dose: Infused Documented by: Sodium Chloride () 250 mls @ 15 mls/hr IV .[id number] PRN PRN Reason: Saline Flush Last Infusion: 11/05/19 10:45 Dose: 0 mls/hr Documented by: Vancomycin IV Pharmacy to Dose (1 ea/ Sodium Chloride) 500 mls @ 250 mls/hr IV X1 PRN; Protocol PRN Reason: Rx to Dose Vancomycin HCl 2,000 mg/ (Sodium Chloride) 540 mls @ 250 mls/hr IV X1 ONE Stop: 11/05/19 12:39 Last Admin: 11/05/19 10:42 Dose: 250 mls/hr Documented by: Vancomycin HCl 1,250 mg/ (Sodium Chloride) 275 mls @ 167 mls/hr IV Q12H [facility] Letrozole (Femara) 2.5 mg PO DAILY [facility] Last Admin: 11/05/19 10:29 Dose: 2.5 mg Documented by: Magnesium Hydroxide (Milk Of Magnesia) 30 ml PO DAILY PRN PRN Reason: Constipation Nutritional Formula (Lactose Free) (Ensure Enlive) 120 ml PO 4X/DAY [facility] Last Admin: 11/05/19 10:29 Dose: Not Given Documented by: Nystatin (Mycostatin Powder) 1 applic TOPICAL BID [facility]; Protocol Last Admin: 11/05/19 11:38 Dose: 1 applicatio Documented by: [facility] Last Admin: 11/05/19 10:28 Dose: 10 mg Documented by: Phenol/Menthol (Chloraseptic (Bkc)) 5 spray MM Q2H PRN PRN PRN Reason: sore throat Promethazine HCl (Phenergan) 6.25 mg IV Q4H PRN PRN PRN Reason: NAUSEA/VOMITING Sodium Chloride () 10 - 40 ml IV UD PRN PRN Reason: SALINE FLUSH Last Admin: 11/05/19 09:31 Dose: 30 ml Documented by: Throat Lozenges (Cepacol Sore Throat Lozenge) 2 lozenge MUCOUS MEM Q2H PRN PRN PRN Reason: SORE THROAT Medical Necessity - Tobacco Use Smoking Status: Never smoker Tobacco Use: Non-smoker Assessment/Plan All Active Problems Pressure injury of right buttock, stage 3 (Acute) Pressure injury of sacral region, stage 2 (Acute) Debility (Acute) Multiple sclerosis (Acute) Psoriasis (Acute) Bilateral lower extremity edema (Acute) History of breast cancer (Acute) Pressure injury of buttock, stage 4 (Acute) Leukocytosis (Acute) Sepsis (Acute) 1. Sepsis secondary to infected stage IV right ischium decubitus ulceration with osteomyelitis and sacral decubitus ulceration-CT of pelvis shows multiple changes in the pelvis with large tissue defect in the medial proximal right buttock. Prior cultures 10/12/2019 grew Proteus, E. coli, prevotella disiens, and bacteroides thetaiotaomicron. Continue IV Zosyn, IV vancomycin. Blood cultures pending. Wound cultures pending, bone culture pulmonary growing gram-positive cocci. Patient recently on Augmentin, Cipro and Bactrim prior to admission. Dr. Dougherty on consult, underwent excision of necrotic right ischial pressure sore with partial ostectomy for osteomyelitis 11/03/2019. Wound RN consult. PT/OT. SNF at discharge for further wound management. Currently follows at wound center. Q2H turns. 2. Acute blood loss anemia secondary to surgical debridement related to #1- hemoglobin stable. Status post 1 unit PRBC. 3. Hypotension, tachycardia-continue treatment per #1. ICU for closer monitoring. 4. MS with chronic debility, nonambulatory w/suprapubic catheter in place. Continue home medication regimen including baclofen. 5. Obesity-encouraged dietary modifications. Nutrition consult. 6. History of breast cancer DVT prophylaxis-Lovenox subcu This patient was seen by Viridiana Jensen NP-Priscilla under the supervision of Dr. Dr. Caballero.
[2019-11-05] MEDS: HYDROcodone Bitartrate/Apap 5/325 Tablet PO (16:14)
--- NOTE | 2019-11-05 16:35 | PN.SURG_ITS ---
Patient Problems: Active and Suspected Problems Pressure injury of buttock, stage 4 (Acute) Leukocytosis (Acute) Sepsis (Acute) Subjective: Postop #2 Patient is resting comfortably. Feels a little tired. Patient has had blood pressure issues and was sent to ICU. - Physical Exam Vitals/I&O's: Vital Signs Temp Pulse Resp BP Pulse Ox 98.7 F 107 H 19 H 109/66 98 11/05/19 12:00 11/05/19 14:00 11/05/19 14:00 11/05/19 14:00 11/05/19 14:00 Oxygen Flow Rate (L/min) 6 Oxygen Delivery Method Room Air Weight: 201 lb 2.008 oz Body Mass Index (BMI) 31.5 Intake and Output for Last 24 Hours 11/03/19 11/04/19 11/05/19 23:59 23:59 23:59 Intake Total 3860.00 / 4541.46 6039.33 / 7059.33 6409.25 / 6409.25 Output Total 1825 / 2375 3350 / 5750 6930 / 6930 Balance 2035.00 / 2166.46 2689.33 / 1309.33 -520.75 / -520.75 General: Alert, Oriented x3 HEENT: PERRLA, EOMI Oral: Moist Mucosa Neck: Supple Abdomen: Soft, Non-Distended Skin: Ulcer/ Wound - right ischial wound stable. No active bleeding seen. Redressed with saline Kerlix gauze. Will have VAC applied tomorrow. Neurological: Cranial nerves II-XII grossly intact Psych/Mental Status: Normal Affect, Appropriate Microbiology Past 72 Hours 11/02/19 19:40 Blood Culture (Wb) - Left Hand Blood Culture - Preliminary No growth in 48 hours. 11/02/19 21:00 Blood Culture (Wb) - Venous Blood Culture - Preliminary No growth in 48 hours. 11/03/19 Unknown Biopsy - Bone Gram Stain - Final 11/03/19 Unknown Biopsy - Bone Wound Culture - Preliminary Gram Positive Cocci 11/03/19 Unknown Biopsy - Tissue Gram Stain - Final 11/03/19 Unknown Biopsy - Tissue Wound Culture - Preliminary 11/02/19 21:00 Urine Catheter - Catheter Urine Culture - Final Presumptive C albicans Laboratory Results 11/03/19 22:10: Crossmatch See Detail 11/03/19 22:10: Crossmatch See Detail 11/05/19 07:47: WBC 14.3 H, RBC 3.60 L, Hgb 10.3 L, Hct 31.4 L, MCV 87.2, MCH 28.6, MCHC 32.8, RDW Std Deviation 43.8, RDW Coeff of [place] 13.9, Plt Count 299, MPV 9.7, Immature Gran % (Auto) 0.500, Neut % (Auto) 78.2 H, Lymph % (Auto) 15.4 L, [place] % (Auto) 5.5, Eos % (Auto) 0.2, Baso % (Auto) 0.2, Absolute Neuts (auto) 11.2 H, Absolute Lymphs (auto) 2.20, Nucleated RBC % 0 11/05/19 07:47: Sodium 144, Potassium 3.1 L, Chloride 112 H, Carbon Dioxide 28.0, Anion Gap 4 L, BUN 3 L, Creatinine 0.23 L, Estim Creat Clear Calc 240.30, Est GFR (MDRD) Af Amer 385, Est GFR (MDRD) Non-Af 318, BUN/Creatinine Ratio 12.9, Glucose 112 H, Calcium 7.8 L 11/05/19 10:06: Lactic Acid 0.7 11/05/19 10:15: Urine Color Straw, Urine Clarity Clear, Urine pH 7.0, Ur Specific [place] 1.010, Urine Protein Negative, Urine Glucose (UA) Normal, Urine Ketones 5 H, Urine Occult Blood Negative, Urine Nitrite Negative, Urine Bilirubin Negative, Urine Urobilinogen Normal, Ur Leukocyte Esterase 100 H, Urine RBC 0 SEEN, Urine WBC 0-5 SEEN, Ur Squamous Epith Cells 0-5 SEEN, Urine Bacteria RARE, Urine Mucus 0 SEEN, Urine Yeast 2+ Current Medications Acetaminophen (Tylenol) 650 mg PO Q6H PRN PRN PRN Reason: fever/Noncardiac pain(4-10/10) Last Admin: 11/05/19 10:17 Dose: 650 mg Documented by: Hydrocodone Bitart/Acetaminophen ([place] 5mg-325mg) 1 - 2 tablet PO Q4H PRN PRN PRN Reason: Pain Score 4-10/10 Last Admin: 11/05/19 16:14 Dose: 1 tablet Documented by: Acetic Acid (Acetic Acid) 1,000 ml IR DAILY [facility] Last Admin: 11/05/19 11:39 Dose: 1,000 ml Documented by: Al Hydroxide/Mg Hydroxide (Mylanta Ii) 15 - 30 ml PO Q4H PRN PRN PRN Reason: INDIGESTION Ascorbic Acid (Vitamin C) 500 mg PO DAILY [facility] Last Admin: 11/05/19 10:28 Dose: 500 mg Documented by: Baclofen (Lioresal) 10 mg PO TID [facility] Last Admin: 11/05/19 14:02 Dose: 10 mg Documented by: Cholecalciferol (Vitamin D) 1,000 unit PO DAILY [facility] Last Admin: 11/05/19 10:28 Dose: 1,000 unit Documented by: Enoxaparin Sodium (Lovenox) 90 mg SC Q12@0600,1800 [facility] Last Admin: 11/05/19 09:36 Dose: 90 mg Documented by: Hydralazine HCl (Apresoline Iv) 10 mg IV Q4H PRN PRN PRN Reason: SBP > 160 Hydromorphone HCl (Dilaudid Inj) 1 mg IV Q3H PRN PRN PRN Reason: pain 6-10 Sodium Chloride () 1,000 mls @ 100 mls/hr IV .Q10H [facility] Last Admin: 11/05/19 11:52 Dose: 100 mls/hr Documented by: Piperacillin Sod/Tazobactam (Sod 3.375 gm/ Sodium Chloride) 50 mls @ 12.5 mls/hr IV Q8 [facility] Last Admin: 11/05/19 14:02 Dose: 12.5 mls/hr Documented by: Sodium Chloride () 250 mls @ 15 mls/hr IV .[id number] PRN PRN Reason: Saline Flush Last Infusion: 11/05/19 10:45 Dose: 0 mls/hr Documented by: Vancomycin IV Pharmacy to Dose (1 ea/ Sodium Chloride) 500 mls @ 250 mls/hr IV X1 PRN; Protocol PRN Reason: Rx to Dose Vancomycin HCl 1,250 mg/ (Sodium Chloride) 275 mls @ 167 mls/hr IV Q12H [facility] Letrozole (Femara) 2.5 mg PO DAILY [facility] Last Admin: 11/05/19 10:29 Dose: 2.5 mg Documented by: Magnesium Hydroxide (Milk Of Magnesia) 30 ml PO DAILY PRN PRN Reason: Constipation Nutritional Formula (Lactose Free) (Ensure Enlive) 120 ml PO 4X/DAY [facility] Last Admin: 11/05/19 14:05 Dose: 120 ml Documented by: Nystatin (Mycostatin Powder) 1 applic TOPICAL BID [facility]; Protocol Last Admin: 11/05/19 11:38 Dose: 1 applicatio Documented by: [facility]ynin [facility]) [facility] Last Admin: 11/05/19 10:28 Dose: 10 mg Documented by: Phenol/Menthol (Chloraseptic (Bkc)) 5 spray MM Q2H PRN PRN PRN Reason: sore throat Promethazine HCl (Phenergan) 6.25 mg IV Q4H PRN PRN PRN Reason: NAUSEA/VOMITING Sodium Chloride () 10 - 40 ml IV UD PRN PRN Reason: SALINE FLUSH Last Admin: 11/05/19 09:31 Dose: 30 ml Documented by: Throat Lozenges (Cepacol Sore Throat Lozenge) 2 lozenge MUCOUS MEM Q2H PRN PRN PRN Reason: SORE THROAT Medical Necessity - Tobacco Use Smoking Status: Never smoker Tobacco Use: Non-smoker Assessment/Plan All Active Problems Pressure injury of right buttock, stage 3 (Acute) Pressure injury of sacral region, stage 2 (Acute) Debility (Acute) Multiple sclerosis (Acute) Psoriasis (Acute) Bilateral lower extremity edema (Acute) History of breast cancer (Acute) Pressure injury of buttock, stage 4 (Acute) Leukocytosis (Acute) Sepsis (Acute) 1. Necrotic right ischial pressure sore, Stage IV. 2. Osteomyelitis. 3. Multiple sclerosis. 4. s/p excision necrotic right ischial pressure sore, Stage IV, with partial ostectomy for osteomyelitis. 5. Anemia of chronic disease, acute on chronic, stable. 6. Postop bleeding, stable. 7. Postop hypotension. Right ischial wound is stable today. No bleeding noted. Saline Kerllix dressing changed today. Will have VAC placed on Wednesday. Had a couple of bleeding episodes the evening of surgery. There was about 200 ml of blood in the wound after these episodes. There was an area of oozing next to the bone and at the skin edges which were controlled with silver nitrate chemical cauterization and gauze compression. Her Hgb dropped to 9. She has some hypovolemia with decreased BP and increased Pulse. Besides increasing IV fluids, she is receiving PRBC to help with the hypovolemia and to help with oxygenation of tissues for improved healing. Her repeat Hgb is 10.3. With persistent hypotension, she was transferred to ICU for closer monitoring. Operative cultures show Gram positive cocci in the bone thus far. She is currently on Zosyn. Vancomycin added. Anticipate osteomyelitis and the need for IV antibiotics. So a PICC line was placed. Prealbumin was 9.7. Encourage nutritional supplementation with protein to help the healing process.
[2019-11-05] MEDS: Menthol/Lanolin/Calamine/Znox 113 GM Tube 1 APPLIC TOPICAL (21:33)
[2019-11-06] VITALS (29 sets, daily range): BP systolic 72–111; BP diastolic 43–80; PULSE 90–154; RESP 12–22; TEMP 36.5–37.1; O2SAT 94–100
--- NOTE | 2019-11-06 01:05 | NURSING ---
Pt becomes tearful as this nurse draws a blood sample as ordered; pt statesthings are just getting worse, going all downhill. I don't know how much more of this I can take. Emotional support provided, offered to contact retail interior designer services and pt accepts. Pt denies wanting any family called at this hour.
[2019-11-06 01:45] LABS: Anion Gap 6 (5-15); BUN 5 mg/dL (7-18); Chloride 109 mmol/L (98-107); Creatinine, Serum 0.42 mg/dL (0.55-1.02); EST Glomerular Filtration Rate 163 mL/min (>60); Est Glom Filt Rate - Afr Amer 198 mL/min (>60); Estimated Creatinine Clearance 131.59 ml/min; Glucose 121 mg/dL (74-106); Potassium 3.9 mmol/L (3.5-5.1); Sodium Level 142 mmol/L (136-145)
--- NOTE | 2019-11-06 01:50 | NURSING ---
[employer] attempted to draw H/H sample, as previous sample clotted. Phleb unsuccessful x2 and suggests waiting for additional tech to arrive at 0300. Only other option is to draw a finger scrape sample, considering pt's edema this option would not yield accurate results.
--- NOTE | 2019-11-06 03:14 | NURSING ---
2nd Pleb able to draw CBC sample, pt alexandra well.
[2019-11-06 03:23] LABS: Hematocrit 29.3 % (37-47); Hemoglobin 9.5 g/dL (12.0-15.0)
[2019-11-06] MEDS: Enoxaparin 100 MG/ML Syringe 90 MG SC ×2 (05:03→17:44)
[2019-11-06] MEDS: Baclofen 10 MG Tablet PO ×3 (05:04→21:16)
[2019-11-06] MEDS: 0.9% Saline Lock 10 ML Syringe IV (05:04)
[2019-11-06 06:58] LABS: Magnesium 1.7 mg/dL (1.6-2.6); Phosphorus 2.3 mg/dL (2.5-4.9)
--- NOTE | 2019-11-06 07:41 | PCM.RX.CS ---
Consult Pharmacy has been consulted to manage selected antiobiotic: Vancomycin Type of Consult: New start Suspected Infection: Sepsis Prior Doses of Antibiotics Received/Current Regimen: none Labs: Sodium 142 mmol/L (136-145) 11/06/19 01:05 Potassium 3.9 mmol/L (3.5-5.1) 11/06/19 01:05 Chloride 109 mmol/L (98-107) H 11/06/19 01:05 Carbon Dioxide 27.0 mmol/L (21.0-32.0) 11/06/19 01:05 Anion Gap 6 (5-15) 11/06/19 01:05 BUN 5 mg/dL (7-18) L 11/06/19 01:05 Creatinine 0.42 mg/dL (0.55-1.02) L 11/06/19 01:05 Est GFR (MDRD) Af Amer 198 mL/min (>60) 11/06/19 01:05 Est GFR (MDRD) Non-Af 163 mL/min (>60) 11/06/19 01:05 BUN/Creatinine Ratio 12.0 RATIO (10-20) 11/06/19 01:05 Glucose 121 mg/dL (74-106) H 11/06/19 01:05 Microbiology: Microbiology 11/02/19 19:40 Blood Culture (Wb) - Left Hand Blood Culture - Preliminary No growth in 48 hours. 11/02/19 21:00 Blood Culture (Wb) - Venous Blood Culture - Preliminary No growth in 48 hours. 11/03/19 Unknown Biopsy - Bone Gram Stain - Final 11/03/19 Unknown Biopsy - Bone Wound Culture - Preliminary Gram Positive Cocci 11/03/19 Unknown Biopsy - Tissue Gram Stain - Final 11/03/19 Unknown Biopsy - Tissue Wound Culture - Preliminary 11/02/19 21:00 Urine Catheter - Catheter Urine Culture - Final Presumptive C albicans Weight used for dosin kg Estimated Creatinine Clearance: 69ml/min Goal Trough: 15-20 mcg/mL Pharmacy Plan for Drug Dosing: Pt transferred from [id number] to [id number] due to sepsis. Pt started on a 25mg/kg loading dose of Vancomycin (2000mg dose) x1 on 11/05/19 at 1042. Based off of pt's weight and crcl recommend an initial maintenance dose of Vancomycin 1250mg q12h to start 12/8/19 at 2200. Trough will be drawn before the 4th total dose on 09/06/19 at 2130. pt's srcr was adjusted from 0.23 to 0.8 which resulted in the crcl changing from 240 to 69. Pharmacy Service will continue to monitor and adjust dosing as required. Follow-Up Labs: Trough Vancomycin - 11/06/19 @ 2130
--- NOTE | 2019-11-06 08:15 | PCM.PN.INT ---
Subjective: Patient did okay overnight. Patient feels subjectively improved compared to previous. Patient did have some hypotension and tachycardia overnight, but did not require any blood transfusions or pressor therapy. On my evaluation, patient had a heart rate of 160 bpm, but denied any palpitations. Patient denies any pain at the peripheral IV sites of the left antecubital area General: Alert, Oriented x3, Cooperative, No apparent distress, - - No conversational dyspnea appreciated HEENT: Atraumatic, PERRLA, EOMI, Normocephalic Oral: Moist Mucosa, No Gingival or Mucosal Lesions/ Ulcerations Neck: Supple, No JVD, No Nodes, Trachea Midline Lungs: No rhonchi, No wheeze, No rales, Diminished, - - Symmetric expansion. Fair effort. Cardiovascular: Normal S1, Normal S2, No murmurs, No rub noted, No Gallop, Tachycardic Abdomen: Bowel Sounds Present, Soft, Non Tender, Non-Distended, Obese Extremities: No cyanosis, Diminished Peripheral Pulses, Edema Skin: Ulcer/ Wound, - - Slight induration of peripheral IV site in the left antecubital area Musculoskeletal: No Tenderness to Palpation of Joints or Extremities Lymphatic: No Cervical, Supraclavicular, or Inguinal Adenopathy Neurological: Cranial nerves II-XII grossly intact, Neuro grossly intact, Motor Exam 5/5 strength throughout Psych/Mental Status: Alert and oriented to time, place, person, mood and affect Vital Signs Temp Pulse Resp BP Pulse Ox 36.6 C 113 H 14 104/72 100 11/06/19 04:00 11/06/19 08:00 11/06/19 08:00 11/06/19 08:00 11/06/19 08:00 Oxygen Flow Rate (L/min) 2 Oxygen Delivery Method Nasal Cannula Weight: 110 kg Body Mass Index (BMI) 31.5 Intake and Output for Last 24 Hours 11/04/19 11/05/19 11/06/19 23:59 23:59 23:59 Intake Total 6039.33 / 7059.33 9390.92 / 9390.92 1850 / 1850 Output Total 3350 / 5750 32262 / 26998 2200 / 2200 Balance 2689.33 / 1309.33 -2039.08 / -2039.08 -350 / -350 Labs (Last 48 Hours) 11/03/19 11/03/19 11/05/19 22:10 22:10 07:47 WBC 14.3 H RBC 3.60 L Hgb 10.3 L Hct 31.4 L MCV 87.2 MCH 28.6 MCHC 32.8 RDW Std Deviation 43.8 RDW Coeff of Homer 13.9 Plt Count 299 MPV 9.7 Immature Gran % (Auto) 0.500 Neut % (Auto) 78.2 H Lymph % (Auto) 15.4 L Walker % (Auto) 5.5 Eos % (Auto) 0.2 Baso % (Auto) 0.2 Absolute Neuts (auto) 11.2 H Absolute Lymphs (auto) 2.20 Nucleated RBC % 0 Sodium Potassium Chloride Carbon Dioxide Anion Gap BUN Creatinine Estim Creat Clear Calc Est GFR (MDRD) Af Amer Est GFR (MDRD) Non-Af BUN/Creatinine Ratio Glucose Lactic Acid Calcium Phosphorus Magnesium Urine Color Urine Clarity Urine pH Ur Specific [place] Urine Protein Urine Glucose (UA) Urine Ketones Urine Occult Blood Urine Nitrite Urine Bilirubin Urine Urobilinogen Ur Leukocyte Esterase Urine RBC Urine WBC Ur Squamous Epith Cells Urine Bacteria Urine Mucus Urine Yeast Blood Type B POSITIVE Antibody Screen NEGATIVE Crossmatch See Detail See Detail 11/05/19 11/05/19 11/05/19 07:47 10:06 10:15 WBC RBC Hgb Hct MCV MCH MCHC RDW Std Deviation RDW Coeff of [place] Plt Count MPV Immature Gran % (Auto) Neut % (Auto) Lymph % (Auto) Walker % (Auto) Eos % (Auto) Baso % (Auto) Absolute Neuts (auto) Absolute Lymphs (auto) Nucleated RBC % Sodium 144 Potassium 3.1 L Chloride 112 H Carbon Dioxide 28.0 Anion Gap 4 L BUN 3 L Creatinine 0.23 L Estim Creat Clear Calc 240.30 Est GFR (MDRD) Af Amer 385 Est GFR (MDRD) Non-Af 318 BUN/Creatinine Ratio 12.9 Glucose 112 H Lactic Acid 0.7 Calcium 7.8 L Phosphorus Magnesium Urine Color Straw Urine Clarity Clear Urine pH 7.0 Ur Specific [place] 1.010 Urine Protein Negative Urine Glucose (UA) Normal Urine Ketones 5 H Urine Occult Blood Negative Urine Nitrite Negative Urine Bilirubin Negative Urine Urobilinogen Normal Ur Leukocyte Esterase 100 H Urine RBC 0 SEEN Urine WBC 0-5 SEEN Ur Squamous Epith Cells 0-5 SEEN Urine Bacteria RARE Urine Mucus 0 SEEN Urine Yeast 2+ Blood Type Antibody Screen Crossmatch 11/06/19 11/06/19 11/06/19 01:05 01:05 01:05 WBC RBC Hgb Cancelled Hct Cancelled MCV MCH MCHC RDW Std Deviation RDW Coeff of [place] Plt Count MPV Immature Gran % (Auto) Neut % (Auto) Lymph % (Auto) Walker % (Auto) Eos % (Auto) Baso % (Auto) Absolute Neuts (auto) Absolute Lymphs (auto) Nucleated RBC % Sodium 142 Potassium 3.9 Chloride 109 H Carbon Dioxide 27.0 Anion Gap 6 BUN 5 L Creatinine 0.42 L Estim Creat Clear Calc 131.59 Est GFR (MDRD) Af Amer 198 Est GFR (MDRD) Non-Af 163 BUN/Creatinine Ratio 12.0 Glucose 121 H Lactic Acid Calcium 8.0 L Phosphorus 2.3 L Magnesium 1.7 Urine Color Urine Clarity Urine pH Ur Specific [place] Urine Protein Urine Glucose (UA) Urine Ketones Urine Occult Blood Urine Nitrite Urine Bilirubin Urine Urobilinogen Ur Leukocyte Esterase Urine RBC Urine WBC Ur Squamous Epith Cells Urine Bacteria Urine Mucus Urine Yeast Blood Type Antibody Screen Crossmatch 11/06/19 03:14 WBC RBC Hgb 9.5 L Hct 29.3 L MCV MCH MCHC RDW Std Deviation RDW Coeff of [place] Plt Count MPV Immature Gran % (Auto) Neut % (Auto) Lymph % (Auto) Walker % (Auto) Eos % (Auto) Baso % (Auto) Absolute Neuts (auto) Absolute Lymphs (auto) Nucleated RBC % Sodium Potassium Chloride Carbon Dioxide Anion Gap BUN Creatinine Estim Creat Clear Calc Est GFR (MDRD) Af Amer Est GFR (MDRD) Non-Af BUN/Creatinine Ratio Glucose Lactic Acid Calcium Phosphorus Magnesium Urine Color Urine Clarity Urine pH Ur Specific [place] Urine Protein Urine Glucose (UA) Urine Ketones Urine Occult Blood Urine Nitrite Urine Bilirubin Urine Urobilinogen Ur Leukocyte Esterase Urine RBC Urine WBC Ur Squamous Epith Cells Urine Bacteria Urine Mucus Urine Yeast Blood Type Antibody Screen Crossmatch Microbiology 11/02/19 19:40 Blood Culture (Wb) - Left Hand Blood Culture - Preliminary No growth in 48 hours. 11/02/19 21:00 Blood Culture (Wb) - Venous Blood Culture - Preliminary No growth in 48 hours. 11/03/19 Unknown Biopsy - Bone Gram Stain - Final 11/03/19 Unknown Biopsy - Bone Wound Culture - Preliminary Gram Positive Cocci 11/03/19 Unknown Biopsy - Tissue Gram Stain - Final 11/03/19 Unknown Biopsy - Tissue Wound Culture - Preliminary 11/02/19 21:00 Urine Catheter - Catheter Urine Culture - Final Presumptive C albicans Clinical Impression(s) from Imaging Studies Chest X-Ray 11/05/19 05:55 IMPRESSION: No interval change Electronically Signed: Everardo Bello MD at 8:42 EST , Service support , Chest CTA 11/05/19 08:19 IMPRESSION: No demonstrated PE, or thoracic aortic aneurysm or dissection Calcified coronary vessels Chronic interstitial changes in both lung carrion with evidence of chronic bronchitis, small left pleural effusion and bibasilar atelectasis Electronically Signed: Everardo Bello MD at 9:35 EST , Service support , Medical Necessity - Tobacco Use Smoking Status: Never smoker Tobacco Use: Non-smoker Assessment/Plan All Active Problems Pressure injury, stage 4, with gangrene (Acute) Pressure injury of right buttock, stage 3 (Acute) Debility (Acute) Multiple sclerosis (Acute) Psoriasis (Acute) Bilateral lower extremity edema (Acute) History of breast cancer (Acute) Pressure injury of buttock, stage 4 (Acute) Leukocytosis (Acute) Sepsis (Acute) RECOMMENDATIONS: 1. Monitor hemodynamics in ICU setting. If needed, vasopressor support will be initiated. 2. Continue with vancomycin and Zosyn pending culture results 3. Electrolyte repletion as indicated. 4. Continue to monitor blood cell counts daily 5. Continue appropriate DVT prophylaxis. IMPRESSIONS: 1. Sepsis secondary to infected pressure ulcer, now s/p surgical excision The patient was taken to the OR on November 03 and appears to have been relatively hypotensive over the last 2 days. However, the patient does report that her baseline blood pressure runs on the low side and she is routinely tachycardic. Patient has been initiated on vancomycin. Bone biopsy is showing gram-positive cocci and may account for patient's failure to respond to previous therapy. We will continue to monitor in the intensive care unit. Patient is mentating appropriately, but may require pressor therapy. Would hold off on significant fluid resuscitation as patient already has significant edema and is requiring 2 L nasal cannula. 2. Hypotension/SVT Patient's H&H has remained stable. Patient does have periodic SVT to 160. Unable to obtain an EKG, but appeared to be A. fib with RVR on telemetry. This has not been noted previously. Patient does not have an echocardiogram available for review. May obtain echocardiogram if arrhythmias persist. 3. Anemia Recheck H&H upon transfer to ICU. If the patient were to have a significant amount of blood loss from her wound, empiric transfusion of blood products can be considered. 4. Hypokalemia Repleted. Phosphorus is slightly low, but would not account for SVT. Mag is fine. Recheck levels in the morning. 5. Questionable Sleep Disorder Breathing The patient has symptoms concerning for SIMON, but has never been formally evaluated. Empiric BIPAP therapy can be offered while admitted to the hospital with outpatient PSG, if the patient is agreeable. 6. Baseline MS/history of breast cancer/obesity Complicates care, management, recovery and prognosis. Code Visit Inpatient E&M: 74012 Subs Hosp L3
[2019-11-06] MEDS: HYDROcodone Bitartrate/Apap 5/325 Tablet PO (08:39)
[2019-11-06] MEDS: Oxybutynin 5 MG Tablet 10 MG PO ×2 (09:12→17:44)
[2019-11-06] MEDS: Ascorbic Acid 500 MG Tablet PO (09:12)
[2019-11-06] MEDS: Nystatin Powder 15gm Bottle 1 APPLIC TOPICAL ×2 (09:13→21:15)
[2019-11-06] MEDS: LACTOBACILLUS RHAMNOSUS GG 1 EACH CAPSULE PO (09:13)
[2019-11-06] MEDS: CHLORHEXIDINE GLUC 2% CLOTH 1 EACH TOWELETTE TOPICAL (09:14)
[2019-11-06] MEDS: 0.9% Normal Saline 1,000 ML 100 ML IV ×2 (09:14→21:10)
[2019-11-06] MEDS: Menthol/Lanolin/Calamine/Znox 113 GM Tube 1 APPLIC TOPICAL ×2 (09:14→21:14)
--- NOTE | 2019-11-06 09:26 | NURSING ---
wound photo: right ischium
--- NOTE | 2019-11-06 09:27 | NURSING ---
wound photo: right ischium
--- NOTE | 2019-11-06 10:58 | CASEMGMT ---
Social Work SW met with pt to discuss d/c plans. Pt stating she lives at home with her who assists her with bathing and dressing and med set up each morning. Pt is alone during the day while is at work and uses a power wheelchair to navigate the home. Pt has private duty aid 2x week to assist with laundry, cleaning and meal prep. RN from [facility] every other week to monitor and change super pubic cath. At this time pt stating she and spouse feel a nursing facility will be necessary at d/c for a few weeks prior to returning home. Written list of area facilities in network with insurance provided to pt and first choice is [facility]. Referral made to [facility] and clinicals faxed. Will await return call to determine acceptance. Will need insurance preauth prior to discharge. Plan: [facility] SNF, pending acceptance and insurance auth SADIA Og
--- NOTE | 2019-11-06 11:42 | PN_ITS ---
Patient Problems: Active and Suspected Problems Pressure injury of buttock, stage 4 (Acute) Leukocytosis (Acute) Sepsis (Acute) Reason for Visit: no complaints. no pain currently. Objective: review of image from [facility]: approximately a 7cm stage 3 ulcer with clean margins on right buttocks. Vitals/I&O's: Vital Signs Temp Pulse Resp BP Pulse Ox 36.6 C 103 H 13 102/62 100 11/06/19 04:00 11/06/19 11:05 11/06/19 11:00 11/06/19 11:00 11/06/19 11:40 Oxygen Flow Rate (L/min) 2 Oxygen Delivery Method Nasal Cannula Weight: 110 kg Body Mass Index (BMI) 31.5 Intake and Output for Last 24 Hours 11/04/19 11/05/19 11/06/19 23:59 23:59 23:59 Intake Total 6039.33 / 7059.33 9390.92 / 9390.92 2871.67 / 2871.67 Output Total 3350 / 5750 21046 / 68820 2200 / 2200 Balance 2689.33 / 1309.33 -2039.08 / -2039.08 671.67 / 671.67 General: Alert, Cooperative, No apparent distress HEENT: Atraumatic, Normocephalic Oral: Moist Mucosa, No Gingival or Mucosal Lesions/ Ulcerations Neck: No Nodes, Trachea Midline Lungs: Clear to auscultation, Normal air movement, No rhonchi, No wheeze, No rales Cardiovascular: Regular rate, Regular Rhythm, Normal S1, Normal S2, No murmurs Abdomen: Bowel Sounds Present, Soft, Non Tender, Non-Distended, No Hepato-spleno megaly Extremities: No edema, No Calf Tenderness Skin: No rashes, No breakdown Musculoskeletal: No Tenderness to Palpation of Joints or Extremities, No Muscle Wasting Psych/Mental Status: Normal Affect, Appropriate Microbiology Past 72 Hours 11/03/19 Unknown Biopsy - Bone Gram Stain - Final 11/03/19 Unknown Biopsy - Bone Wound Culture - Final Staphylococcus capitis 11/03/19 Unknown Biopsy - Bone Anaerobic Culture - Preliminary Checking for anaerobes, further studies to follow. 11/03/19 Unknown Biopsy - Tissue Gram Stain - Final 11/03/19 Unknown Biopsy - Tissue Wound Culture - Preliminary Gram Positive Cocci 11/03/19 Unknown Biopsy - Tissue Anaerobic Culture - Preliminary Checking for anaerobes, further studies to follow. 11/02/19 19:40 Blood Culture (Wb) - Left Hand Blood Culture - Preliminary No growth in 48 hours. 11/02/19 21:00 Blood Culture (Wb) - Venous Blood Culture - Preliminary No growth in 48 hours. 11/02/19 21:00 Urine Catheter - Catheter Urine Culture - Final Presumptive C albicans Laboratory Results 11/03/19 22:10: Crossmatch See Detail 11/06/19 01:05: Sodium 142, Potassium 3.9, Chloride 109 H, Carbon Dioxide 27.0, Anion Gap 6, BUN 5 L, Creatinine 0.42 L, Estim Creat Clear Calc 131.59, Est GFR (MDRD) Af Amer 198, Est GFR (MDRD) Non-Af 163, BUN/Creatinine Ratio 12.0, Glucose 121 H, Calcium 8.0 L 11/06/19 01:05: Hgb Cancelled, Hct Cancelled 11/06/19 01:05: Phosphorus 2.3 L, Magnesium 1.7 11/06/19 03:14: Hgb 9.5 L, Hct 29.3 L Current Medications Acetaminophen (Tylenol) 650 mg PO Q6H PRN PRN PRN Reason: fever/Noncardiac pain(4-10/10) Last Admin: 11/05/19 10:17 Dose: 650 mg Documented by: Hydrocodone Bitart/Acetaminophen (Sherman 5mg-325mg) 1 - 2 tablet PO Q4H PRN PRN PRN Reason: Pain Score 4-10/10 Last Admin: 11/06/19 08:39 Dose: 2 tablet Documented by: Acetic Acid (Acetic Acid) 1,000 ml IR 2200 [facility] Al Hydroxide/Mg Hydroxide (Mylanta Ii) 15 - 30 ml PO Q4H PRN PRN PRN Reason: INDIGESTION Ascorbic Acid (Vitamin C) 500 mg PO DAILY [facility] Last Admin: 11/06/19 09:12 Dose: 500 mg Documented by: Baclofen (Lioresal) 10 mg PO TID [facility] Last Admin: 11/06/19 05:04 Dose: 10 mg Documented by: Calamine/Phenol (Calmoseptine Ointment) 1 applic TOPICAL BID [facility]; Protocol Last Admin: 11/06/19 09:14 Dose: 1 applicatio Documented by: Chlorhexidine Gluconate () 1 each TOPICAL DAILY [facility] Last Admin: 11/06/19 09:14 Dose: 1 each Documented by: Cholecalciferol (Vitamin D) 1,000 unit PO DAILY [facility] Last Admin: 11/06/19 09:12 Dose: 1,000 unit Documented by: Enoxaparin Sodium (Lovenox) 90 mg SC Q12@0600,1800 [facility] Last Admin: 11/06/19 05:03 Dose: 90 mg Documented by: Hydralazine HCl (Apresoline Iv) 10 mg IV Q4H PRN PRN PRN Reason: SBP > 160 Hydromorphone HCl (Dilaudid Inj) 1 mg IV Q3H PRN PRN PRN Reason: pain 6-10 Sodium Chloride () 1,000 mls @ 100 mls/hr IV .Q10H [facility] Last Admin: 11/06/19 09:14 Dose: 100 mls/hr Documented by: Piperacillin Sod/Tazobactam (Sod 3.375 gm/ Sodium Chloride) 50 mls @ 12.5 mls/hr IV Q8 [facility] Last Infusion: 11/06/19 10:31 Dose: Infused Documented by: Sodium Chloride () 250 mls @ 15 mls/hr IV .[id number] PRN PRN Reason: Saline Flush Last Infusion: 11/05/19 10:45 Dose: 0 mls/hr Documented by: Vancomycin IV Pharmacy to Dose (1 ea/ Sodium Chloride) 500 mls @ 250 mls/hr IV X1 PRN; Protocol PRN Reason: Rx to Dose Vancomycin HCl 1,250 mg/ (Sodium Chloride) 275 mls @ 167 mls/hr IV Q12H [facility] Last Admin: 11/06/19 11:07 Dose: 167 mls/hr Documented by: Letrozole (Femara) 2.5 mg PO DAILY [facility] Last Admin: 11/06/19 09:13 Dose: 2.5 mg Documented by: Magnesium Hydroxide (Milk Of Magnesia) 30 ml PO DAILY PRN PRN Reason: Constipation Nutritional Formula ([place]ingo - [place] Flavor) 1 packet PO BIDCM [facility] Nutritional Formula (Lactose Free) (Ensure Enlive) 120 ml PO 4X/DAY [facility] Last Admin: 11/06/19 09:13 Dose: 120 ml Documented by: Nystatin (Mycostatin Powder) 1 applic TOPICAL BID [facility]; Protocol Last Admin: 11/06/19 09:13 Dose: 1 applicatio Documented by: Oxybutynin Chloride (Ditropan) 10 mg PO BIDCM [facility] Last Admin: 11/06/19 09:12 Dose: 10 mg Documented by: Phenol/Menthol (Chloraseptic (Bkc)) 5 spray MM Q2H PRN PRN PRN Reason: sore throat Promethazine HCl (Phenergan) 6.25 mg IV Q4H PRN PRN PRN Reason: NAUSEA/VOMITING Sodium Chloride () 10 - 40 ml IV UD PRN PRN Reason: SALINE FLUSH Last Admin: 11/06/19 05:04 Dose: 5 ml Documented by: Throat Lozenges (Cepacol Sore Throat Lozenge) 2 lozenge MUCOUS MEM Q2H PRN PRN PRN Reason: SORE THROAT STROKE Vital Signs/Narrative: Vital Signs Pulse Resp BP Pulse Ox 11/06/19 11:40 100 11/06/19 11:05 103 H 11/06/19 11:00 104 H 13 102/62 100 11/06/19 10:00 107 H 12 96/61 100 11/06/19 09:00 99 13 111/76 100 11/06/19 08:00 113 H 14 104/72 100 11/06/19 07:55 105 H Medical Necessity - Tobacco Use Smoking Status: Never smoker Tobacco Use: Non-smoker Assessment/Plan All Active Problems Pressure injury, stage 4, with gangrene (Acute) Pressure injury of right buttock, stage 3 (Acute) Debility (Acute) Multiple sclerosis (Acute) Psoriasis (Acute) Bilateral lower extremity edema (Acute) History of breast cancer (Acute) Pressure injury of buttock, stage 4 (Acute) Leukocytosis (Acute) Sepsis (Acute) 1. sepsis * 2/2 #2 * supportive mgmt 2. infected stage 4 right ischial pressure ulcer * s/p debridement onn 11/03 * prelim wound culture + for Staph capitis * on pip-tazo and vanc 3. ABLA * transfused 2 units, but was never lower than 9 * monitor * patient to not be transfused further unless actively hemorrhaging or Hg <7 4. hypotension: * dropped into the 80s * patient notes that she is chronically low 5. moderate protein malnutrition * prealb 9.7 * continue diet and supplements 6. VTE proph: LMWH Code Visit Inpatient E&M: 83170 Subs Hosp L2
[2019-11-06 12:43] LABS: Absolute Lymphocyte Count 2.36 X10^3/uL (0.83-4.51); Absolute Neutrophil Count 9.1 X10^3/uL (2.0-7.7); Basophil# 0.05 X10^3/uL; Basophil% 0.4 % (0-1); Eosinophil# 0.09 X10^3/uL; Eosinophils% 0.7 % (0-5); Lymphocyte # 2.36 X10^3/ul (4.0); Lymphocyte % 19.1 % (19-41); Mean Corp Hgb Conc 32.3 g/dL (32-36); Mean Corpuscular Hgb 28.8 pg (27.0-32.0); Mean Platelet Vol. 10.5 fl (6.2-12.0); Monocyte# 0.72 X10^3/uL; Monocyte% 5.8 % (0-10); NRBC Flagged by Analyzer 0 % (0-5); Neutrophil # 9.07 X10^3/uL (2.7-7.7); Neutrophil % 73.3 % (47-70); Platelet Count 309 K/mm3 (150-450); RBC Distribution Width CV 14.6 % (11.6-14.6); RBC Distribution Width SD 46.8 fl (35.1-43.9); Red Blood Count 3.37 M/mm3 (4.2-5.4); White Blood Count 12.4 K/mm3 (4.4-11.0)
[2019-11-06 12:44] LABS: Hematocrit 29.3 % (37-47); Hemoglobin 9.5 g/dL (12.0-15.0)
--- NOTE | 2019-11-06 14:08 | SUR.HOLD ---
Type of Pastoral Visit _x__ Initial Visit ___ Follow-up Visit ___ On-call Visit ___ General Patient Visit ___ Spiritual Assessment ___ Family Conference ___ Bereavement ___ Rapid Response ___ Code Blue ___ Other (describe below) Pastoral Care Referral From _x__ Patient ___ Family _x__ Nurse ___ Physician ___ Director Of [employer] ___ Stereotyper Helper ___ Other (describe below) Sacrament/Intervention _x__ Active listening ___ Anointing ___ Jehovah'S Witness ___ Bereavement ___ Communion _x__ Vannesa exploration ___ ___ Life review _x__ Prayer ___ Reconciliation ___ Sacrament of Sick _x__ Supportive presence ___ Wedding ___ Other (describe below) Pastoral Comments patient is seeking spiritual care and support; pt is member of [employer] in [place] but is not able to attend services;
--- NOTE | 2019-11-06 20:22 | PN.SURG_ITS ---
Patient Problems: Active and Suspected Problems Pressure injury of buttock, stage 4 (Acute) Leukocytosis (Acute) Sepsis (Acute) Subjective: Postop #3 Patient is resting comfortably. VAC applied. Being transferred from ICU. - Physical Exam Vitals/I&O's: Vital Signs Temp Pulse Resp BP Pulse Ox 98.8 F 105 H 18 103/57 L 96 11/06/19 18:55 11/06/19 18:55 11/06/19 18:55 11/06/19 18:55 11/06/19 18:55 Oxygen Flow Rate (L/min) 2 Oxygen Delivery Method Room Air Weight: 242 lb 8.136 oz Body Mass Index (BMI) 31.5 Intake and Output for Last 24 Hours 11/04/19 11/05/19 11/06/19 23:59 23:59 23:59 Intake Total 6039.33 / 7059.33 9390.92 / 9390.92 6196.67 / 6196.67 Output Total 3350 / 5750 71477 / 38977 6800 / 6800 Balance 2689.33 / 1309.33 -2039.08 / -2039.08 -603.33 / -603.33 General: Alert, Oriented x3 HEENT: PERRLA, EOMI Oral: Moist Mucosa Neck: Supple Abdomen: Soft, Non-Distended Skin: Ulcer/ Wound - right ischial wound is stable. No bleeding noted. VAC applied today. Neurological: Cranial nerves II-XII grossly intact Psych/Mental Status: Normal Affect, Appropriate Microbiology Past 72 Hours 11/04/19 13:10 Blood Culture (Wb) - Other Blood Culture - Preliminary No growth in 48 hours. 11/03/19 Unknown Biopsy - Bone Gram Stain - Final 11/03/19 Unknown Biopsy - Bone Wound Culture - Final Staphylococcus capitis 11/03/19 Unknown Biopsy - Bone Anaerobic Culture - Preliminary Checking for anaerobes, further studies to follow. 11/03/19 Unknown Biopsy - Tissue Gram Stain - Final 11/03/19 Unknown Biopsy - Tissue Wound Culture - Preliminary Gram Positive Cocci 11/03/19 Unknown Biopsy - Tissue Anaerobic Culture - Preliminary Checking for anaerobes, further studies to follow. 11/02/19 19:40 Blood Culture (Wb) - Left Hand Blood Culture - Preliminary No growth in 48 hours. 11/02/19 21:00 Blood Culture (Wb) - Venous Blood Culture - Preliminary No growth in 48 hours. 11/02/19 21:00 Urine Catheter - Catheter Urine Culture - Final Presumptive C albicans Pathology - pending. Laboratory Results 11/06/19 01:05: Sodium 142, Potassium 3.9, Chloride 109 H, Carbon Dioxide 27.0, Anion Gap 6, BUN 5 L, Creatinine 0.42 L, Estim Creat Clear Calc 131.59, Est GFR (MDRD) Af Amer 198, Est GFR (MDRD) Non-Af 163, BUN/Creatinine Ratio 12.0, Glucose 121 H, Calcium 8.0 L 11/06/19 01:05: Hgb Cancelled, Hct Cancelled 11/06/19 01:05: Phosphorus 2.3 L, Magnesium 1.7 11/06/19 03:14: WBC 12.4 H, RBC 3.37 L, Hgb 9.5 L, Hct 29.3 L, MCV 89.0, MCH 28.8, MCHC 32.3, RDW Std Deviation 46.8 H, RDW Coeff of Homer 14.6, Plt Count 309, MPV 10.5, Immature Gran % (Auto) 0.700, Neut % (Auto) 73.3 H, Lymph % (Auto) 19.1, [place] % (Auto) 5.8, Eos % (Auto) 0.7, Baso % (Auto) 0.4, Absolute Neuts (auto) 9.1 H, Absolute Lymphs (auto) 2.36, Nucleated RBC % 0 11/06/19 03:14: Hgb 9.5 L, Hct 29.3 L Current Medications Acetaminophen (Tylenol) 650 mg PO Q6H PRN PRN PRN Reason: fever/Noncardiac pain(4-10/10) Last Admin: 11/05/19 10:17 Dose: 650 mg Documented by: Hydrocodone Bitart/Acetaminophen ([place] 5mg-325mg) 1 - 2 tablet PO Q4H PRN PRN PRN Reason: Pain Score 4-10/10 Last Admin: 11/06/19 08:39 Dose: 2 tablet Documented by: Acetic Acid (Acetic Acid) 1,000 ml IR 2200 [facility] Al Hydroxide/Mg Hydroxide (Mylanta Ii) 15 - 30 ml PO Q4H PRN PRN PRN Reason: INDIGESTION Ascorbic Acid (Vitamin C) 500 mg PO DAILY [facility] Last Admin: 11/06/19 09:12 Dose: 500 mg Documented by: Baclofen (Lioresal) 10 mg PO TID [facility] Last Admin: 11/06/19 13:10 Dose: 10 mg Documented by: Calamine/Phenol (Calmoseptine Ointment) 1 applic TOPICAL BID [facility]; Protocol Last Admin: 11/06/19 09:14 Dose: 1 applicatio Documented by: Chlorhexidine Gluconate () 1 each TOPICAL DAILY [facility] Last Admin: 11/06/19 09:14 Dose: 1 each Documented by: Cholecalciferol (Vitamin D) 1,000 unit PO DAILY [facility] Last Admin: 11/06/19 09:12 Dose: 1,000 unit Documented by: Enoxaparin Sodium (Lovenox) 90 mg SC Q12@0600,1800 [facility] Last Admin: 11/06/19 17:44 Dose: 90 mg Documented by: Hydralazine HCl (Apresoline Iv) 10 mg IV Q4H PRN PRN PRN Reason: SBP > 160 Sodium Chloride () 1,000 mls @ 100 mls/hr IV .Q10H [facility] Last Admin: 11/06/19 09:14 Dose: 100 mls/hr Documented by: Piperacillin Sod/Tazobactam (Sod 3.375 gm/ Sodium Chloride) 50 mls @ 12.5 mls/hr IV Q8 [facility] Last Infusion: 11/06/19 17:51 Dose: Infused Documented by: Sodium Chloride () 250 mls @ 15 mls/hr IV .[id number] PRN PRN Reason: Saline Flush Last Infusion: 11/05/19 10:45 Dose: 0 mls/hr Documented by: Vancomycin IV Pharmacy to Dose (1 ea/ Sodium Chloride) 500 mls @ 250 mls/hr IV X1 PRN; Protocol PRN Reason: Rx to Dose Vancomycin HCl 1,250 mg/ (Sodium Chloride) 275 mls @ 167 mls/hr IV Q12H [facility] Last Infusion: 11/06/19 13:07 Dose: Infused Documented by: Letrozole (Femara) 2.5 mg PO DAILY [facility] Last Admin: 11/06/19 09:13 Dose: 2.5 mg Documented by: Magnesium Hydroxide (Milk Of Magnesia) 30 ml PO DAILY PRN PRN Reason: Constipation Nutritional Formula ([place] - [place] Flavor) 1 packet PO BIDCM [facility] Last Admin: 11/06/19 17:44 Dose: 1 packet Documented by: Nutritional Formula (Lactose Free) (Ensure Enlive) 120 ml PO 4X/DAY [facility] Last Admin: 11/06/19 17:34 Dose: Not Given Documented by: Nystatin (Mycostatin Powder) 1 applic TOPICAL BID [facility]; Protocol Last Admin: 11/06/19 09:13 Dose: 1 applicatio Documented by: Oxybutynin Chloride (Ditropan) 10 mg PO BIDCM [facility] Last Admin: 11/06/19 17:44 Dose: 10 mg Documented by: Phenol/Menthol (Chloraseptic (Bkc)) 5 spray MM Q2H PRN PRN PRN Reason: sore throat Promethazine HCl (Phenergan) 6.25 mg IV Q4H PRN PRN PRN Reason: NAUSEA/VOMITING Sodium Chloride () 10 - 40 ml IV UD PRN PRN Reason: SALINE FLUSH Last Admin: 11/06/19 05:04 Dose: 5 ml Documented by: Throat Lozenges (Cepacol Sore Throat Lozenge) 2 lozenge MUCOUS MEM Q2H PRN PRN PRN Reason: SORE THROAT Medical Necessity - Tobacco Use Smoking Status: Never smoker Tobacco Use: Non-smoker Assessment/Plan All Active Problems Pressure injury, stage 4, with gangrene (Acute) Pressure injury of right buttock, stage 3 (Acute) Debility (Acute) Multiple sclerosis (Acute) Psoriasis (Acute) Bilateral lower extremity edema (Acute) History of breast cancer (Acute) Pressure injury of buttock, stage 4 (Acute) Leukocytosis (Acute) Sepsis (Acute) 1. Necrotic right ischial pressure sore, Stage IV. 2. Osteomyelitis. 3. Multiple sclerosis. 4. s/p excision necrotic right ischial pressure sore, Stage IV, with partial ostectomy for osteomyelitis. 5. Anemia of chronic disease, acute on chronic, stable. 6. Postop bleeding, stable. 7. Postop hypotension, stable. Right ischial wound is stable today. No bleeding noted. VAC applied today. Had a couple of bleeding episodes the evening of surgery. There was about 200 ml of blood in the wound after these episodes. There was an area of oozing next to the bone and at the skin edges which were controlled with silver nitrate chemical cauterization and gauze compression. Her Hgb stable at 9.5. Her hypotension has stabilized and she was transferred from the ICU today. Operative cultures show Staphylococcus capitis in the bone thus far. She is currently on Vancomycin and Zosyn. Anticipate osteomyelitis and the need for IV antibiotics. So a PICC line was placed. Prealbumin was 9.7. Encourage nutritional supplementation with protein to help the healing process.
[2019-11-06] MEDS: ACETIC ACID 1,000 ML IRRIG.SOLN 1000 ML IR (21:23)
[2019-11-06 22:16] LABS: Vancomycin, Trough Level 12.1 ug/mL (5.0-15.0)
--- NOTE | 2019-11-06 22:33 | NURSING ---
heart rate went up into 150's. pt sleeping. resp notified of high hrt rate for ekg. vitals done.
[2019-11-07] VITALS (14 sets, daily range): BP systolic 99–113; BP diastolic 50–68; PULSE 91–165; RESP 18–20; TEMP 36.6–37.7; O2SAT 94–98
--- NOTE | 2019-11-07 00:15 | PCM.RX.CS ---
Consult Pharmacy has been consulted to manage selected antiobiotic: Vancomycin Type of Consult: Follow-up Labs: Sodium 142 mmol/L (136-145) 11/06/19 01:05 Potassium 3.9 mmol/L (3.5-5.1) 11/06/19 01:05 Chloride 109 mmol/L (98-107) H 11/06/19 01:05 Carbon Dioxide 27.0 mmol/L (21.0-32.0) 11/06/19 01:05 Anion Gap 6 (5-15) 11/06/19 01:05 BUN 5 mg/dL (7-18) L 11/06/19 01:05 Creatinine 0.42 mg/dL (0.55-1.02) L 11/06/19 01:05 Est GFR (MDRD) Af Amer 198 mL/min (>60) 11/06/19 01:05 Est GFR (MDRD) Non-Af 163 mL/min (>60) 11/06/19 01:05 BUN/Creatinine Ratio 12.0 RATIO (10-20) 11/06/19 01:05 Glucose 121 mg/dL (74-106) H 11/06/19 01:05 Vancomycin Trough 12.1 ug/mL (5.0-15.0) 11/06/19 21:40 Microbiology: Microbiology 11/04/19 13:10 Blood Culture (Wb) - Other Blood Culture - Preliminary No growth in 48 hours. 11/03/19 Unknown Biopsy - Bone Gram Stain - Final 11/03/19 Unknown Biopsy - Bone Wound Culture - Final Staphylococcus capitis 11/03/19 Unknown Biopsy - Bone Anaerobic Culture - Preliminary Checking for anaerobes, further studies to follow. 11/03/19 Unknown Biopsy - Tissue Gram Stain - Final 11/03/19 Unknown Biopsy - Tissue Wound Culture - Preliminary Gram Positive Cocci 11/03/19 Unknown Biopsy - Tissue Anaerobic Culture - Preliminary Checking for anaerobes, further studies to follow. 11/02/19 19:40 Blood Culture (Wb) - Left Hand Blood Culture - Preliminary No growth in 48 hours. 11/02/19 21:00 Blood Culture (Wb) - Venous Blood Culture - Preliminary No growth in 48 hours. 11/02/19 21:00 Urine Catheter - Catheter Urine Culture - Final Presumptive C albicans Goal Trough: 15-20 mcg/mL Pharmacy Plan for Drug Dosing: Pharmacy Service will continue to monitor and adjust dosing as required. Medications Vancomycin HCl 1,500 mg/ (Sodium Chloride) 530 mls @ 250 mls/hr IV Q12H [facility] TROUGH 12.1 INCREASE TO 1500 BID REDRAW TROUGH 11/08 @ 2129 Follow-Up Labs: Trough Vancomycin Labs to be done on [date and time ordered]: 11/08 @ 2129
--- NOTE | 2019-11-07 04:16 | NURSING ---
pt had another episode of svt but lasted only about 2 min. Pt coughed and barred down and it went back into st 100. cool cloth applied to head.
[2019-11-07] MEDS: 0.9% Saline Lock 10 ML Syringe IV ×2 (04:19→20:53)
[2019-11-07] MEDS: Enoxaparin 100 MG/ML Syringe 90 MG SC ×2 (05:31→17:14)
[2019-11-07] MEDS: Baclofen 10 MG Tablet PO ×3 (05:31→20:44)
[2019-11-07 07:16] LABS: Absolute Lymphocyte Count 2.01 X10^3/uL (0.83-4.51); Absolute Neutrophil Count 8.6 X10^3/uL (2.0-7.7); Basophil# 0.03 X10^3/uL; Basophil% 0.3 % (0-1); Eosinophil# 0.14 X10^3/uL; Eosinophils% 1.2 % (0-5); Hematocrit 31.8 % (37-47); Hemoglobin 10.1 g/dL (12.0-15.0); Lymphocyte # 2.01 X10^3/ul (4.0); Lymphocyte % 17.8 % (19-41); Mean Corp Hgb Conc 31.8 g/dL (32-36); Mean Corpuscular Hgb 28.6 pg (27.0-32.0); Mean Corpuscular Volume 90.1 fL (81-99); Mean Platelet Vol. 9.8 fl (6.2-12.0); Monocyte% 4.4 % (0-10); NRBC Flagged by Analyzer 0 % (0-5); Neutrophil # 8.58 X10^3/uL (2.7-7.7); Neutrophil % 75.9 % (47-70); Platelet Count 366 K/mm3 (150-450); RBC Distribution Width CV 14.9 % (11.6-14.6); RBC Distribution Width SD 48.4 fl (35.1-43.9); Red Blood Count 3.53 M/mm3 (4.2-5.4); White Blood Count 11.3 K/mm3 (4.4-11.0)
[2019-11-07 07:29] LABS: Magnesium 1.8 mg/dL (1.6-2.6)
[2019-11-07 07:30] LABS: Anion Gap 4 (5-15); BUN 7 mg/dL (7-18); BUN/Creat Ratio 21.1 RATIO (10-20); Calcium,Total 8.7 mg/dL (8.5-10.1); Chloride 107 mmol/L (98-107); Creatinine, Serum 0.33 mg/dL (0.55-1.02); EST Glomerular Filtration Rate 212 mL/min (>60); Est Glom Filt Rate - Afr Amer 257 mL/min (>60); Estimated Creatinine Clearance 167.48 ml/min; Glucose 101 mg/dL (74-106); Potassium 3.8 mmol/L (3.5-5.1); Sodium Level 142 mmol/L (136-145)
[2019-11-07] MEDS: 0.9% Normal Saline 1,000 ML 100 ML IV ×2 (09:49→20:50)
[2019-11-07] MEDS: Menthol/Lanolin/Calamine/Znox 113 GM Tube 1 APPLIC TOPICAL ×2 (09:50→20:44)
[2019-11-07] MEDS: Nystatin Powder 15gm Bottle 1 APPLIC TOPICAL ×3 (09:51→20:45)
[2019-11-07] MEDS: Oxybutynin 5 MG Tablet 10 MG PO ×2 (09:52→17:14)
[2019-11-07] MEDS: Ascorbic Acid 500 MG Tablet PO (09:52)
--- NOTE | 2019-11-07 10:02 | CASEMGMT ---
FAITH called Elizabeth at [facility] and they cannot accept patient as they do not feel they can manage her wounds. FAITH let patient know this information. She was tearful and asked SW to call her . FAITH called patient's and let him know this information. He told FAITH to make a referral to [facility]. FAITH faxed referral to [facility] and also called [facility]. She will review the referral. Referral to [facility] await their acceptance. Swapna ESCALERA MSW
--- NOTE | 2019-11-07 10:17 | PCM.PN.PUL ---
Patient Problems: Active and Suspected Problems Pressure injury of buttock, stage 4 (Acute) Leukocytosis (Acute) Sepsis (Acute) Subjective: Patient did well during the day yesterday. Patient did require supplemental oxygen overnight, but did not have any other symptoms such as shortness of breath, productive cough or fever. Patient does not report any chest pain in the morning. - Physical Exam Vitals/I&O's: Vital Signs Temp Pulse Resp BP Pulse Ox 36.8 C 94 18 103/54 L 95 11/07/19 09:43 11/07/19 09:43 11/07/19 09:43 11/07/19 09:43 11/07/19 09:43 Oxygen Flow Rate (L/min) 2 Oxygen Delivery Method Room Air Weight: 110 kg Body Mass Index (BMI) 31.5 Intake and Output for Last 24 Hours 11/05/19 11/06/19 11/07/19 23:59 23:59 23:59 Intake Total 9390.92 / 9390.92 8138.34 / 8138.34 1301.66 / 1301.66 Output Total 67374 / 03006 9300 / 9300 1600 / 1600 Balance -2039.08 / -2039.08 -1161.66 / -1161.66 -298.34 / -298.34 General: Alert, Oriented x3, Cooperative, No apparent distress, Well developed, Well nourished, - - Morbidly obese. HEENT: Atraumatic, PERRLA, EOMI, Normocephalic, - - No scleral icterus or injection noted. Nasal cannula in place Oral: Moist Mucosa, No Gingival or Mucosal Lesions/ Ulcerations Neck: Supple, No JVD, No Nodes, Trachea Midline Lungs: No rhonchi, No wheeze, No rales, Diminished Cardiovascular: Regular rate, Regular Rhythm, Normal S1, Normal S2, No murmurs, No rub noted, No Gallop Abdomen: Bowel Sounds Present, Soft, Non Tender, Non-Distended, Obese Extremities: No clubbing, No cyanosis, Edema Musculoskeletal: No Tenderness to Palpation of Joints or Extremities Lymphatic: No Cervical, Supraclavicular, or Inguinal Adenopathy Neurological: Cranial nerves II-XII grossly intact, Neuro grossly intact, Motor Exam 5/5 strength throughout Psych/Mental Status: Alert and oriented to time, place, person, mood and affect Microbiology Past 72 Hours 11/03/19 Unknown Biopsy - Tissue Gram Stain - Final 11/03/19 Unknown Biopsy - Tissue Wound Culture - Final Coag Negative Staph 11/03/19 Unknown Biopsy - Tissue Anaerobic Culture - Preliminary Checking for anaerobes, further studies to follow. 11/04/19 13:10 Blood Culture (Wb) - Other Blood Culture - Preliminary No growth in 48 hours. 11/03/19 Unknown Biopsy - Bone Gram Stain - Final 11/03/19 Unknown Biopsy - Bone Wound Culture - Final Staphylococcus capitis 11/03/19 Unknown Biopsy - Bone Anaerobic Culture - Preliminary Checking for anaerobes, further studies to follow. 11/02/19 19:40 Blood Culture (Wb) - Left Hand Blood Culture - Preliminary No growth in 48 hours. 11/02/19 21:00 Blood Culture (Wb) - Venous Blood Culture - Preliminary No growth in 48 hours. 11/02/19 21:00 Urine Catheter - Catheter Urine Culture - Final Presumptive C albicans Laboratory Results 11/06/19 03:14: WBC 12.4 H, RBC 3.37 L, Hgb 9.5 L, Hct 29.3 L, MCV 89.0, MCH 28.8, MCHC 32.3, RDW Std Deviation 46.8 H, RDW Coeff of Homer 14.6, Plt Count 309, MPV 10.5, Immature Gran % (Auto) 0.700, Neut % (Auto) 73.3 H, Lymph % (Auto) 19.1, [place] % (Auto) 5.8, Eos % (Auto) 0.7, Baso % (Auto) 0.4, Absolute Neuts (auto) 9.1 H, Absolute Lymphs (auto) 2.36, Nucleated RBC % 0 11/06/19 21:40: Vancomycin Trough 12.1 11/07/19 06:45: WBC 11.3 H, RBC 3.53 L, Hgb 10.1 L, Hct 31.8 L, MCV 90.1, MCH 28.6, MCHC 31.8 L, RDW Std Deviation 48.4 H, RDW Coeff of Homer 14.9 H, Plt Count 366, MPV 9.8, Immature Gran % (Auto) 0.400, Neut % (Auto) 75.9 H, Lymph % (Auto) 17.8 L, [place] % (Auto) 4.4, Eos % (Auto) 1.2, Baso % (Auto) 0.3, Absolute Neuts (auto) 8.6 H, Absolute Lymphs (auto) 2.01, Nucleated RBC % 0 11/07/19 06:45: Sodium 142, Potassium 3.8, Chloride 107, Carbon Dioxide 31.0, Anion Gap 4 L, BUN 7, Creatinine 0.33 L, Estim Creat Clear Calc 167.48, Est GFR (MDRD) Af Amer 257, Est GFR (MDRD) Non-Af 212, BUN/Creatinine Ratio 21.1 H, Glucose 101, Calcium 8.7 11/07/19 06:45: Magnesium 1.8 Current Medications Acetaminophen (Tylenol) 650 mg PO Q6H PRN PRN PRN Reason: fever/Noncardiac pain(4-10) Last Admin: 11/05/19 10:17 Dose: 650 mg Documented by: Hydrocodone Bitart/Acetaminophen ([place] 5mg-325mg) 1 - 2 tablet PO Q4H PRN PRN PRN Reason: Pain Score 4-1010 Last Admin: 11/06/19 08:39 Dose: 2 tablet Documented by: Acetic Acid (Acetic Acid) 1,000 ml IR 2200 [facility] Last Admin: 11/06/19 21:23 Dose: 1,000 ml Documented by: Al Hydroxide/Mg Hydroxide (Mylanta Ii) 15 - 30 ml PO Q4H PRN PRN PRN Reason: INDIGESTION Ascorbic Acid (Vitamin C) 500 mg PO DAILY [facility] Last Admin: 11/07/19 09:52 Dose: 500 mg Documented by: Baclofen (Lioresal) 10 mg PO TID [facility] Last Admin: 11/07/19 05:31 Dose: 10 mg Documented by: Calamine/Phenol (Calmoseptine Ointment) 1 applic TOPICAL BID [facility]; Protocol Last Admin: 11/07/19 09:50 Dose: 1 applicatio Documented by: Cholecalciferol (Vitamin D) 1,000 unit PO DAILY [facility] Last Admin: 11/07/19 09:52 Dose: 1,000 unit Documented by: Enoxaparin Sodium (Lovenox) 90 mg SC Q12@0600,1800 [facility] Last Admin: 11/07/19 05:31 Dose: 90 mg Documented by: Hydralazine HCl (Apresoline Iv) 10 mg IV Q4H PRN PRN PRN Reason: SBP > 160 Sodium Chloride () 1,000 mls @ 100 mls/hr IV .Q10H [facility] Last Infusion: 11/07/19 10:06 Dose: 0 mls/hr Documented by: Piperacillin Sod/Tazobactam (Sod 3.375 gm/ Sodium Chloride) 50 mls @ 12.5 mls/hr IV Q8 [facility] Last Infusion: 11/07/19 09:28 Dose: Infused Documented by: Sodium Chloride () 250 mls @ 15 mls/hr IV .[id number] PRN PRN Reason: Saline Flush Last Infusion: 11/07/19 09:59 Dose: Infused Documented by: Vancomycin IV Pharmacy to Dose (1 ea/ Sodium Chloride) 500 mls @ 250 mls/hr IV X1 PRN; Protocol PRN Reason: Rx to Dose Vancomycin HCl 1,500 mg/ (Sodium Chloride) 530 mls @ 250 mls/hr IV Q12H [facility] Last Admin: 11/07/19 10:04 Dose: 250 mls/hr Documented by: Letrozole (Femara) 2.5 mg PO DAILY [facility] Last Admin: 11/07/19 09:53 Dose: 2.5 mg Documented by: Magnesium Hydroxide (Milk Of Magnesia) 30 ml PO DAILY PRN PRN Reason: Constipation Nutritional Formula ([place] - [place] Flavor) 1 packet PO BIDCM [facility] Last Admin: 11/07/19 09:52 Dose: 1 packet Documented by: Nutritional Formula (Lactose Free) (Ensure Enlive) 120 ml PO 4X/DAY [facility] Last Admin: 11/07/19 09:50 Dose: 120 ml Documented by: Nystatin (Mycostatin Powder) 1 applic TOPICAL BID [facility]; Protocol Last Admin: 11/07/19 09:51 Dose: 1 applicatio Documented by: Oxybutynin Chloride (Ditropan) 10 mg PO BIDCM [facility] Last Admin: 11/07/19 09:52 Dose: 10 mg Documented by: Phenol/Menthol (Chloraseptic (Bkc)) 5 spray MM Q2H PRN PRN PRN Reason: sore throat Promethazine HCl (Phenergan) 6.25 mg IV Q4H PRN PRN PRN Reason: NAUSEA/VOMITING Sodium Chloride () 10 - 40 ml IV UD PRN PRN Reason: SALINE FLUSH Last Admin: 11/07/19 04:19 Dose: 10 ml Documented by: Throat Lozenges (Cepacol Sore Throat Lozenge) 2 lozenge MUCOUS MEM Q2H PRN PRN PRN Reason: SORE THROAT Medical Necessity - Tobacco Use Smoking Status: Never smoker Tobacco Use: Non-smoker Assessment/Plan All Active Problems Pressure injury, stage 4, with gangrene (Acute) Pressure injury of right buttock, stage 3 (Acute) Debility (Acute) Multiple sclerosis (Acute) Psoriasis (Acute) Bilateral lower extremity edema (Acute) History of breast cancer (Acute) Pressure injury of buttock, stage 4 (Acute) Leukocytosis (Acute) Sepsis (Acute) RECOMMENDATIONS: 1. Consider infectious disease consultation 2. Continue with vancomycin and Zosyn pending culture results 3. Electrolyte repletion as indicated. 4. Continue to monitor blood cell counts daily 5. Continue appropriate DVT prophylaxis. 6. Hemodynamically stable. Will sign off from a critical care perspective. Patient should have a PSG as an outpatient. IMPRESSIONS: 1. Sepsis secondary to infected pressure ulcer, now s/p surgical excision The patient was taken to the OR on November 03 and appears to have been relatively hypotensive over the last 2 days. However, the patient does report that her baseline blood pressure runs on the low side and she is routinely tachycardic. Patient appears to have improved blood pressures following initiation of vancomycin. Patient is not growing staph aureus, but given positive bone cultures, consider infectious disease consult. 2. Hypotension/SVT Patient's H&H has remained stable. Patient does have periodic SVT to 160. Unable to obtain an EKG, but appeared to be A. fib with RVR on telemetry. This has not been noted previously. Patient does not have an echocardiogram available for review. May obtain echocardiogram if arrhythmias persist. 3. Anemia Recheck H&H upon transfer to ICU. If the patient were to have a significant amount of blood loss from her wound, empiric transfusion of blood products can be considered. 4. Hypokalemia Repleted. Phosphorus is slightly low, but would not account for SVT. Mag is fine. Recheck levels in the morning. 5. Questionable Sleep Disorder Breathing The patient has symptoms concerning for SIMON, but has never been formally evaluated. Patient has been placed on supplemental oxygen at night, but improves during the day. This would be consistent with obstructive sleep apnea. Empiric BIPAP therapy can be offered while admitted to the hospital with outpatient PSG, if the patient is agreeable. 6. Baseline MS/history of breast cancer/obesity Complicates care, management, recovery and prognosis. Code Visit Inpatient E&M: 03269 Subs Hosp L2
--- NOTE | 2019-11-07 10:53 | ECHOD_ITS ---
Reason For Study: SVT Procedure This was a 2D Doppler, Color Flow transthoracic echocardiogram. The study was technically limited. Pt could not tolerate apical images due to open skin under left breast. Exam performed in department. Left Ventricle Normal LV size. The estimated ejection fraction is 55 %. No regional wall motion abnormalities noted. Right Ventricle Normal RV size. Normal systolic function. Atria The left atrium is not well visualized. The right atrium is not well visualized. Mitral Valve Mild (1+) eccentric mitral valve insufficiency. Tricuspid Valve The tricuspid valve is not well visualized. Mild (1+) tricuspid valve insufficiency. Pulmonary artery systolic pressure is 38 mmHg. Aortic Valve The aortic valve is not well visualized. Pulmonic Valve The pulmonic valve is not well visualized. Great Vessels Normal aortic root. The pulmonary artery is normal size. Pericardium/Pleural Small pericardial effusion. MMode/2D Measurements & Calculations LVIDd: 5.4 cm IVSd: 0.85 cm Ao root diam: 3.7 cm LVIDs: 4.0 cm LVPWd: 0.95 cm FS: 25.7 % LA dimension(2D): 3.0 cm Doppler Measurements & Calculations PA V2 max: 71.5 cm/sec TR max michaela: 288.2 cm/sec TR max P.5 mmHg Interpretation Summary Normal LV size. The estimated ejection fraction is 55 %. No regional wall motion abnormalities noted. The study was technically limited. The study was technically difficult. Ordering Physician: Gurmeet Dillon Referring Physician: JASKARAN GALVAN Performed By: Mitch, Nhung, RDCS, RVT
[2019-11-07] MEDS: Metoprolol Tartrate 25 MG Tablet PO ×2 (11:30→20:44)
--- NOTE | 2019-11-07 11:31 | CASEMGMT ---
SW spoke with patient and let her know that SW talked with her and he asked SW to send a referral to [facility]. SW also told her she will need to work with therapy in order to get approved for the [facility] as that is part of the process. SW told her SW has not heard from [facility] yet, but will let her know when SW gets an answer. Swapna ESCALERA MSW
--- NOTE | 2019-11-07 11:35 | NURSING ---
Addendum entered by Tri Roman 11/07/19 12:12: This RN saw cartographic aide Ray in the hallway and asked if he could provide supportive presence to patient. Original Note: Patient very upset about care home placement and not being able to go to [facility]. Crying and visibly upset. Emotional support provided, offered to call family to be with her, she asked for to be called. Message left with at this time.
--- NOTE | 2019-11-07 12:30 | CASEMGMT ---
FAITH received a call from Bita at [facility] and she said they can take patient. She needs wound vac information. She already got the insurance approval. FAITH let her know that she is not ready today. FAITH will notify patient and her of [facility] acceptance. Plan: d/c to [facility] under skilled level of care. Swapna ESCALERA MSW
--- NOTE | 2019-11-07 12:43 | CASEMGMT ---
FAITH let patient and her know that [facility] can take patient. Swapna ESCALERA SENIOR UI DESIGNER
--- NOTE | 2019-11-07 12:48 | CHAPLAIN ---
Type of Pastoral Visit ___ Initial Visit _x__ Follow-up Visit ___ On-call Visit ___ General Patient Visit ___ Spiritual Assessment ___ Family Conference ___ Bereavement ___ Rapid Response ___ Code Blue ___ Other (describe below) Pastoral Care Referral From _x__ Patient ___ Family _x__ Nurse ___ Physician ___ Cnc Lathe Machine Operator ___ Tallier ___ Other (describe below) Sacrament/Intervention _x__ Active listening ___ Anointing ___ Anabaptism ___ Bereavement ___ Communion _x__ Vannesa exploration ___ ___ Life review _x__ Prayer ___ Reconciliation ___ Sacrament of Sick _x__ Supportive presence ___ Wedding ___ Other (describe below) Pastoral Comments RN notified this rotary kiln operator that patient is having a difficult time today due to denial of ECF of choice for admission; pt is tearful and discusses her feelings; pt welcomes listening ear, scriptures, and prayer;
--- NOTE | 2019-11-07 15:15 | PN_ITS ---
Patient Problems: Active and Suspected Problems Pressure injury of buttock, stage 4 (Acute) Leukocytosis (Acute) Sepsis (Acute) Reason for Visit: Having tachycardia, more noticeably when speaking with people. Vitals/I&O's: Vital Signs Temp Pulse Resp BP Pulse Ox 36.8 C 91 18 113/68 98 11/07/19 14:06 11/07/19 14:06 11/07/19 14:06 11/07/19 14:06 11/07/19 14:06 Oxygen Flow Rate (L/min) 2 Oxygen Delivery Method Room Air Weight: 107.9 kg Body Mass Index (BMI) 31.5 Intake and Output for Last 24 Hours 11/05/19 11/06/19 11/07/19 23:59 23:59 23:59 Intake Total 9390.92 / 9390.92 8138.34 / 8138.34 3291.66 / 3291.66 Output Total 25942 / 18941 9300 / 9300 2500 / 2500 Balance -2039.08 / -2039.08 -1161.66 / -1161.66 791.66 / 791.66 General: Alert, Cooperative, No apparent distress HEENT: Atraumatic, Normocephalic Oral: Moist Mucosa, No Gingival or Mucosal Lesions/ Ulcerations Neck: No Nodes, Trachea Midline Lungs: Clear to auscultation, Normal air movement, No rhonchi, No wheeze, No rales, Diminished Cardiovascular: Normal S1, Normal S2, Tachycardic Abdomen: Bowel Sounds Present, Soft, Non Tender, Non-Distended Extremities: No edema, No Calf Tenderness Musculoskeletal: No Tenderness to Palpation of Joints or Extremities, No Muscle Wasting Psych/Mental Status: Normal Affect, Appropriate Microbiology Past 72 Hours 11/05/19 10:15 Urine Catheter - Catheter Urine Culture - Final Presumptive C albicans 11/03/19 Unknown Biopsy - Tissue Gram Stain - Final 11/03/19 Unknown Biopsy - Tissue Wound Culture - Final Coag Negative Staph 11/03/19 Unknown Biopsy - Tissue Anaerobic Culture - Preliminary Checking for anaerobes, further studies to follow. 11/04/19 13:10 Blood Culture (Wb) - Other Blood Culture - Preliminary No growth in 48 hours. 11/03/19 Unknown Biopsy - Bone Gram Stain - Final 11/03/19 Unknown Biopsy - Bone Wound Culture - Final Staphylococcus capitis 11/03/19 Unknown Biopsy - Bone Anaerobic Culture - Preliminary Checking for anaerobes, further studies to follow. 11/02/19 19:40 Blood Culture (Wb) - Left Hand Blood Culture - Preliminary No growth in 48 hours. 11/02/19 21:00 Blood Culture (Wb) - Venous Blood Culture - Preliminary No growth in 48 hours. 11/02/19 21:00 Urine Catheter - Catheter Urine Culture - Final Presumptive C albicans Laboratory Results 11/06/19 21:40: Vancomycin Trough 12.1 11/07/19 06:45: WBC 11.3 H, RBC 3.53 L, Hgb 10.1 L, Hct 31.8 L, MCV 90.1, MCH 28.6, MCHC 31.8 L, RDW Std Deviation 48.4 H, RDW Coeff of [place] 14.9 H, Plt Count 366, MPV 9.8, Immature Gran % (Auto) 0.400, Neut % (Auto) 75.9 H, Lymph % (Auto) 17.8 L, [place] % (Auto) 4.4, Eos % (Auto) 1.2, Baso % (Auto) 0.3, Absolute Neuts (auto) 8.6 H, Absolute Lymphs (auto) 2.01, Nucleated RBC % 0 11/07/19 06:45: Sodium 142, Potassium 3.8, Chloride 107, Carbon Dioxide 31.0, Anion Gap 4 L, BUN 7, Creatinine 0.33 L, Estim Creat Clear Calc 167.48, Est GFR (MDRD) Af Amer 257, Est GFR (MDRD) Non-Af 212, BUN/Creatinine Ratio 21.1 H, Glucose 101, Calcium 8.7 11/07/19 06:45: Magnesium 1.8 Current Medications Acetaminophen (Tylenol) 650 mg PO Q6H PRN PRN PRN Reason: fever/Noncardiac pain(4-10/10) Last Admin: 11/05/19 10:17 Dose: 650 mg Documented by: Hydrocodone Bitart/Acetaminophen ([place] 5mg-325mg) 1 - 2 tablet PO Q4H PRN PRN PRN Reason: Pain Score 4-10/10 Last Admin: 11/06/19 08:39 Dose: 2 tablet Documented by: Acetic Acid (Acetic Acid) 1,000 ml IR 2200 [facility] Last Admin: 11/06/19 21:23 Dose: 1,000 ml Documented by: Al Hydroxide/Mg Hydroxide (Mylanta Ii) 15 - 30 ml PO Q4H PRN PRN PRN Reason: INDIGESTION Ascorbic Acid (Vitamin C) 500 mg PO DAILY [facility] Last Admin: 11/07/19 09:52 Dose: 500 mg Documented by: Baclofen (Lioresal) 10 mg PO TID [facility] Last Admin: 11/07/19 14:07 Dose: 10 mg Documented by: Calamine/Phenol (Calmoseptine Ointment) 1 applic TOPICAL BID [facility]; Protocol Last Admin: 11/07/19 09:50 Dose: 1 applicatio Documented by: Cholecalciferol (Vitamin D) 1,000 unit PO DAILY [facility] Last Admin: 11/07/19 09:52 Dose: 1,000 unit Documented by: Enoxaparin Sodium (Lovenox) 90 mg SC Q12@0600,1800 [facility] Last Admin: 11/07/19 05:31 Dose: 90 mg Documented by: Hydralazine HCl (Apresoline Iv) 10 mg IV Q4H PRN PRN PRN Reason: SBP > 160 Sodium Chloride () 1,000 mls @ 100 mls/hr IV .Q10H [facility] Last Infusion: 11/07/19 12:12 Dose: 100 mls/hr Documented by: Piperacillin Sod/Tazobactam (Sod 3.375 gm/ Sodium Chloride) 50 mls @ 12.5 mls/hr IV Q8 [facility] Last Admin: 11/07/19 14:07 Dose: 12.5 mls/hr Documented by: Sodium Chloride () 250 mls @ 15 mls/hr IV .[id number] PRN PRN Reason: Saline Flush Last Infusion: 11/07/19 09:59 Dose: Infused Documented by: Vancomycin IV Pharmacy to Dose (1 ea/ Sodium Chloride) 500 mls @ 250 mls/hr IV X1 PRN; Protocol PRN Reason: Rx to Dose Vancomycin HCl 1,500 mg/ (Sodium Chloride) 530 mls @ 250 mls/hr IV Q12H [facility] Last Infusion: 11/07/19 12:12 Dose: Infused Documented by: Letrozole (Femara) 2.5 mg PO DAILY [facility] Last Admin: 11/07/19 09:53 Dose: 2.5 mg Documented by: Magnesium Hydroxide (Milk Of Magnesia) 30 ml PO DAILY PRN PRN Reason: Constipation Metoprolol Tartrate (Lopressor (Beta David)) 25 mg PO BID [facility] Nutritional Formula ([place] - [place] Flavor) [facility] Last Admin: 11/07/19 09:52 Dose: 1 packet Documented by: Nutritional Formula (Lactose Free) (Ensure Enlive) 120 ml PO 4X/DAY [facility] Last Admin: 11/07/19 14:07 Dose: 120 ml Documented by: Nystatin (Mycostatin Powder) 1 applic TOPICAL BID [facility]; Protocol Last Admin: 11/07/19 09:51 Dose: 1 applicatio Documented by: Oxybutynin Chloride (Ditropan) 10 mg PO BIDCM [facility] Last Admin: 11/07/19 09:52 Dose: 10 mg Documented by: Phenol/Menthol (Chloraseptic (Bkc)) 5 spray MM Q2H PRN PRN PRN Reason: sore throat Promethazine HCl (Phenergan) 6.25 mg IV Q4H PRN PRN PRN Reason: NAUSEA/VOMITING Sodium Chloride () 10 - 40 ml IV UD PRN PRN Reason: SALINE FLUSH Last Admin: 11/07/19 04:19 Dose: 10 ml Documented by: Throat Lozenges (Cepacol Sore Throat Lozenge) 2 lozenge MUCOUS MEM Q2H PRN PRN PRN Reason: SORE THROAT STROKE Vital Signs/Narrative: Vital Signs Temp Pulse Resp BP Pulse Ox 11/07/19 14:06 36.8 C 91 18 113/68 98 11/07/19 11:30 108 H Medical Necessity - Tobacco Use Smoking Status: Never smoker Tobacco Use: Non-smoker Assessment/Plan All Active Problems Pressure injury, stage 4, with gangrene (Acute) Pressure injury of right buttock, stage 3 (Acute) Debility (Acute) Multiple sclerosis (Acute) Psoriasis (Acute) Bilateral lower extremity edema (Acute) History of breast cancer (Acute) Pressure injury of buttock, stage 4 (Acute) Leukocytosis (Acute) Sepsis (Acute) 1. sepsis * 2/2 #2 * supportive mgmt 2. infected stage 4 right ischial pressure ulcer * s/p debridement on 11/03 * prelim wound culture + for Staph capitis * on pip-tazo and vanc 3. ABLA * transfused 2 units, but was never lower than 9 * monitor * patient to not be transfused further unless actively hemorrhaging or Hg <7 4. hypotension: * dropped into the 80s * patient notes that she is chronically low 5. moderate protein malnutrition * prealb 9.7 * continue diet and supplements 6. SVT: transient. start metoprolol. check echo and observe. 7. VTE proph: LMWH 8. debility: to SNF when medically stable. Code Visit Inpatient E&M: 11223 Subs Hosp L2
[2019-11-07] MEDS: ACETIC ACID 1,000 ML IRRIG.SOLN 1000 ML IR (20:46)
[2019-11-07] MEDS: BENZOCAINE/MENTHOL 1 LOZENGE 2 LOZENGE MUCOUS MEM (21:09)
--- NOTE | 2019-11-07 23:09 | NURSING ---
All HS medications given early due to patient request.
[2019-11-08] VITALS (10 sets, daily range): BP systolic 94–105; BP diastolic 54–68; PULSE 94–107; RESP 16; TEMP 37–37.4; O2SAT 94
[2019-11-08] MEDS: Baclofen 10 MG Tablet PO ×2 (05:17→14:45)
[2019-11-08] MEDS: Enoxaparin 100 MG/ML Syringe 90 MG SC (05:18)
[2019-11-08 06:50] LABS: Anion Gap 5 (5-15); BUN 10 mg/dL (7-18); Calcium,Total 8.3 mg/dL (8.5-10.1); Chloride 106 mmol/L (98-107); Creatinine, Serum 0.38 mg/dL (0.55-1.02); EST Glomerular Filtration Rate 178 mL/min (>60); Est Glom Filt Rate - Afr Amer 215 mL/min (>60); Estimated Creatinine Clearance 145.44 ml/min; Glucose 91 mg/dL (74-106); Potassium 3.4 mmol/L (3.5-5.1); Sodium Level 141 mmol/L (136-145)
[2019-11-08] MEDS: Menthol/Lanolin/Calamine/Znox 113 GM Tube 1 APPLIC TOPICAL (10:17)
[2019-11-08] MEDS: Nystatin Powder 15gm Bottle 1 APPLIC TOPICAL (10:18)
[2019-11-08] MEDS: Oxybutynin 5 MG Tablet 10 MG PO ×2 (10:18→17:14)
[2019-11-08] MEDS: LACTOBACILLUS RHAMNOSUS GG 1 EACH CAPSULE PO (10:19)
[2019-11-08] MEDS: Ascorbic Acid 500 MG Tablet PO (10:21)
[2019-11-08] MEDS: Metoprolol Tartrate 25 MG Tablet PO (10:21)
--- NOTE | 2019-11-08 10:57 | PN_ITS ---
Patient Problems: Active and Suspected Problems Pressure injury of buttock, stage 4 (Acute) Leukocytosis (Acute) Sepsis (Acute) Reason for Visit: sacral wound Subjective: cramps with PT. no other new complaints. Vitals/I&O's: Vital Signs Temp Pulse Resp BP Pulse Ox 37.3 C 107 H 16 104/60 94 11/08/19 08:28 11/08/19 10:21 11/08/19 08:28 11/08/19 08:28 11/08/19 08:28 Oxygen Flow Rate (L/min) 2 Oxygen Delivery Method Room Air Weight: 107.5 kg Body Mass Index (BMI) 31.5 Intake and Output for Last 24 Hours 11/06/19 11/07/19 11/08/19 23:59 23:59 23:59 Intake Total 8138.34 / 8138.34 6168.95 / 6788.95 2186.04 / 2186.04 Output Total 9300 / 9300 5975 / 8175 3650 / 3650 Balance -1161.66 / -1161.66 193.95 / -1386.05 -1463.96 / -1463.96 General: Alert, No apparent distress HEENT: Atraumatic, Normocephalic Oral: Moist Mucosa, No Gingival or Mucosal Lesions/ Ulcerations Neck: No Nodes, Trachea Midline Lungs: Clear to auscultation, Normal air movement, No rhonchi, No wheeze, No rales Cardiovascular: Regular rate, Regular Rhythm, Normal S1, Normal S2, No murmurs Abdomen: Bowel Sounds Present, Soft, Non Tender, Non-Distended Microbiology Past 72 Hours 11/02/19 19:40 Blood Culture (Wb) - Left Hand Blood Culture - Final No growth in 5 days. 11/02/19 21:00 Blood Culture (Wb) - Venous Blood Culture - Final No growth in 5 days. 11/05/19 10:15 Urine Catheter - Catheter Urine Culture - Final Presumptive C albicans 11/03/19 Unknown Biopsy - Tissue Gram Stain - Final 11/03/19 Unknown Biopsy - Tissue Wound Culture - Final Coag Negative Staph 11/03/19 Unknown Biopsy - Tissue Anaerobic Culture - Preliminary Checking for anaerobes, further studies to follow. 11/04/19 13:10 Blood Culture (Wb) - Other Blood Culture - Preliminary No growth in 48 hours. 11/03/19 Unknown Biopsy - Bone Gram Stain - Final 11/03/19 Unknown Biopsy - Bone Wound Culture - Final Staphylococcus capitis 11/03/19 Unknown Biopsy - Bone Anaerobic Culture - Preliminary Checking for anaerobes, further studies to follow. Laboratory Results 11/03/19 22:10: Crossmatch See Detail 11/08/19 05:50: Sodium 141, Potassium 3.4 L, Chloride 106, Carbon Dioxide 30.0, Anion Gap 5, BUN 10, Creatinine 0.38 L, Estim Creat Clear Calc 145.44, Est GFR (MDRD) Af Amer 215, Est GFR (MDRD) Non-Af 178, BUN/Creatinine Ratio 26.0 H, Glucose 91, Calcium 8.3 L Current Medications Acetaminophen (Tylenol) 650 mg PO Q6H PRN PRN PRN Reason: fever/Noncardiac pain(4-1010) Last Admin: 11/05/19 10:17 Dose: 650 mg Documented by: Hydrocodone Bitart/Acetaminophen ([place] 5mg-325mg) 1 - 2 tablet PO Q4H PRN PRN PRN Reason: Pain Score 4-1010 Last Admin: 11/06/19 08:39 Dose: 2 tablet Documented by: Acetic Acid (Acetic Acid) 1,000 ml IR 2200 [facility] Last Admin: 11/07/19 20:46 Dose: 1,000 ml Documented by: Al Hydroxide/Mg Hydroxide (Mylanta Ii) 15 - 30 ml PO Q4H PRN PRN PRN Reason: INDIGESTION Ascorbic Acid (Vitamin C) 500 mg PO DAILY [facility] Last Admin: 11/08/19 10:21 Dose: 500 mg Documented by: Baclofen (Lioresal) 10 mg PO TID [facility] Last Admin: 11/08/19 05:17 Dose: 10 mg Documented by: Calamine/Phenol (Calmoseptine Ointment) 1 applic TOPICAL BID [facility]; Protocol Last Admin: 11/08/19 10:17 Dose: 1 applicatio Documented by: Cholecalciferol (Vitamin D) 1,000 unit PO DAILY [facility] Last Admin: 11/08/19 10:21 Dose: 1,000 unit Documented by: Enoxaparin Sodium (Lovenox) 90 mg SC Q12@0600,1800 [facility] Last Admin: 11/08/19 05:18 Dose: 90 mg Documented by: Hydralazine HCl (Apresoline Iv) 10 mg IV Q4H PRN PRN PRN Reason: SBP > 160 Piperacillin Sod/Tazobactam (Sod 3.375 gm/ Sodium Chloride) 50 mls @ 12.5 mls/hr IV Q8 [facility] Last Infusion: 11/08/19 09:30 Dose: Infused Documented by: Sodium Chloride () 250 mls @ 15 mls/hr IV .[id number] PRN PRN Reason: Saline Flush Last Infusion: 11/07/19 09:59 Dose: Infused Documented by: Vancomycin IV Pharmacy to Dose (1 ea/ Sodium Chloride) 500 mls @ 250 mls/hr IV X1 PRN; Protocol PRN Reason: Rx to Dose Vancomycin HCl 1,500 mg/ (Sodium Chloride) 530 mls @ 250 mls/hr IV Q12H [facility] Last Admin: 11/08/19 10:35 Dose: 250 mls/hr Documented by: Letrozole (Femara) 2.5 mg PO DAILY [facility] Last Admin: 11/08/19 10:19 Dose: 2.5 mg Documented by: Magnesium Hydroxide (Milk Of Magnesia) 30 ml PO DAILY PRN PRN Reason: Constipation Metoprolol Tartrate (Lopressor (Beta David)) 25 mg PO BID [facility] Last Admin: 11/08/19 10:21 Dose: 25 mg Documented by: Nutritional Formula ([place] - [place] Flavor) 1 packet PO BIDCM [facility] Last Admin: 11/08/19 10:17 Dose: 1 packet Documented by: Nutritional Formula (Lactose Free) (Ensure Enlive) 120 ml PO 4X/DAY [facility] Last Admin: 11/08/19 10:15 Dose: 120 ml Documented by: Nystatin (Mycostatin Powder) 1 applic TOPICAL BID [facility]; Protocol Last Admin: 11/08/19 10:18 Dose: 1 applicatio Documented by: Oxybutynin Chloride (Ditropan) 10 mg PO BIDCM [facility] Last Admin: 11/08/19 10:18 Dose: 10 mg Documented by: Phenol/Menthol (Chloraseptic (Bkc)) 5 spray MM Q2H PRN PRN PRN Reason: sore throat Promethazine HCl (Phenergan) 6.25 mg IV Q4H PRN PRN PRN Reason: NAUSEA/VOMITING Sodium Chloride () 10 - 40 ml IV UD PRN PRN Reason: SALINE FLUSH Last Admin: 11/07/19 20:53 Dose: 10 ml Documented by: Throat Lozenges (Cepacol Sore Throat Lozenge) 2 lozenge MUCOUS MEM Q2H PRN PRN PRN Reason: SORE THROAT Last Admin: 11/07/19 21:09 Dose: 2 lozenge Documented by: STROKE Vital Signs/Narrative: Vital Signs Temp Pulse Resp BP Pulse Ox 11/08/19 10:21 107 H 11/08/19 08:28 37.3 C 102 H 16 104/60 94 11/08/19 08:25 94 11/08/19 07:39 102 H Medical Necessity - Tobacco Use Smoking Status: Never smoker Tobacco Use: Non-smoker Assessment/Plan All Active Problems Pressure injury, stage 4, with gangrene (Acute) Pressure injury of right buttock, stage 3 (Acute) Debility (Acute) Multiple sclerosis (Acute) Psoriasis (Acute) Bilateral lower extremity edema (Acute) History of breast cancer (Acute) Pressure injury of buttock, stage 4 (Acute) Leukocytosis (Acute) Sepsis (Acute) 1. sepsis * 2/2 #2 * supportive mgmt 2. infected stage 4 right ischial pressure ulcer * s/p debridement on 11/03 * prelim wound culture + for Staph capitis and [employer] * on pip-tazo and vanc * ID consult 3. ABLA * transfused 2 units, but was never lower than 9 * monitor * patient to not be transfused further unless actively hemorrhaging or Hg <7 4. hypotension: * dropped into the 80s * patient notes that she is chronically low * currently stable 5. moderate protein malnutrition * prealb 9.7 * continue diet and supplements 6. SVT: * transient. seems to be exacerbated by stressful events (speaking with staff, etc.) * metoprolol 25 BID. reluctant to increase further given low-normal BP. * EF 55% 7. VTE proph: LMWH 8. debility: to SNF pending ID eval. Code Visit Inpatient E&M: 91988 Subs Hosp L2
[2019-11-08] MEDS: metroNIDAZOLE 500 MG Tablet PO (14:45)
--- NOTE | 2019-11-08 15:04 | PCM.TXEXTCAR ---
- Diet 11/03/19 13:34 Diet: Regular Diet Is pt able to select menu?: Yes Diet Comments: Patient is a feed, please deliver tray to desk - Routine Orders/Code Status Routine Lab Work: CBC, BMP Code Status: Full Code - Wound(s) RIGHT BUTTOCK Wound Type: Pressure Injury right ischium Wound Type: Pressure Injury Dressing Change: wound vac. charge 3x/week. pressure 150mmHg, continuous suction. sacrum Wound Type: Pressure Injury Dressing Change: Mepilex ashwini cleft Wound Type: Pressure Injury L Antecubital Wound Type: Puncture - Therapies Weight Bearing: Full weight bearing Physical Therapy: Eval and Treat Occupational Therapy: Eval and Treat - Allergies/Procedures Done in Hospital Allergies/Adverse Reactions: Allergies bacitracin [From Neosporin ([id number])] Allergy (Verified 11/02/19 17:16) Rash neomycin [From Neosporin ([id number])] Allergy (Verified 11/02/19 17:16) Rash ondansetron [From Zofran] Allergy (Verified 11/02/19 17:16) Other PALPITATIONS polymyxin B [From Neosporin ([id number])] Allergy (Verified 11/02/19 17:16) Rash Sulfa (Sulfonamide Antibiotics) Allergy (Verified 11/02/19 17:16) Rash Procedures: - - Excision necrotic right ischial pressure sore, Stage IV, with partial ostectomy for osteomyelitis. - Type of Care/Length of Stay Estimated LOS: Convalescent Care Less Than 30 days Type of Care Needed: Skilled Rehab Potential: Fair Prognosis: Good - Additional Orders/Day of Discharge Day of Discharge: 11/08/19 - Dietary and Speech Recommendations Dietitian Recommendations/Changes: Rec diet change to Regular low sodium w/ fluid restriction r/t wt gain d/t edema. Rec Domingo bid to help w/ wound healing. Please check daily wts - Follow Up Care Primary Care Physician: Jovon Levy MD [Primary Care Provider] - Within 1 Week
--- NOTE | 2019-11-08 15:08 | CASEMGMT ---
Patient was asking if she will have a special mattress at [facility]. SW called Bita at [facility] and she said they ordered a wound vac and special mattress. SW let patient know this information. SW told her SW will let her know what time she will be leaving as soon as SW has a time. Swapna ESCALERA MSW
--- NOTE | 2019-11-08 15:12 | PCM.DC.SUM ---
Discharge Date and Diagnosis - Problem List Patient Problems: Active and Suspected Problems Pressure injury of buttock, stage 4 (Acute) Leukocytosis (Acute) Sepsis (Acute) Date of Admission: 11/02/19 Date of Discharge: 11/08/19 - Primary Discharge Diagnosis Active and Suspected Problems 1. sepsis 2/2 #2 supportive mgmt 2. infected stage 4 right ischial pressure ulcer s/p debridement on 11/03 prelim wound culture + for Staph capitis and [employer]ER 6 weeks of ceftriaxone and metronidazole continue wound care 3. ABLA transfused 2 units, but was never lower than 9 monitor patient to not be transfused further unless actively hemorrhaging or Hg <7 4. hypotension: dropped into the 80s patient notes that she is chronically low currently stable 5. moderate protein malnutrition prealb 9.7 continue diet and supplements 6. SVT: transient. seems to be exacerbated by stressful events (speaking with staff, etc.) metoprolol 25 BID. reluctant to increase further given low-normal BP. 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 Electronically Signed: Trevor Palmer DO at 19:01 EST Tel [phone], Service support , Pelvis CT 11/03/19 06:59 IMPRESSION: Multiple changes in the pelvis as described with a large tissue defect in the medial proximal right buttock. Electronically Signed: Shar Zamora, at 8:44 EST , Service support , Chest X-Ray 11/04/19 16:35 IMPRESSION: No acute chest disease. Electronically Signed: Cesar Burch MD at 17:21 EST , Service support , ADDENDUM: 11/04/19 1753 Chest X-Ray 11/05/19 05:55 IMPRESSION: No interval change Electronically Signed: Everardo Bello MD at 8:42 EST , Service support , Chest CTA 11/05/19 08:19 IMPRESSION: No demonstrated PE, or thoracic aortic aneurysm or dissection Calcified coronary vessels Chronic interstitial changes in both lung carrion with evidence of chronic bronchitis, small left pleural effusion and bibasilar atelectasis Electronically Signed: Everardo Bello MD at 9:35 EST , Service support , Consultations 11/02/19 23:53 Consult: Onc/Wound/shrub planter Routine Comment: Reason for Consult:: Sacral wound Amalia, ID Ladonna, PRS Juan, [facility] Operations: - - debridement of ischial ulcer Summary of Care Provided: The patient is a 64 year old F presents on the fifth with wound on her sacrum plus leukocytosis. And underwent debridement of a stage IV right ischial ulcer. Patient was admitted to the ICU for hypotension and monitored but remained stable. Seen by infectious disease who recommended 6 weeks of ceftriaxone as well as metronidazole. Patient had issues with SVT and sinus tach with rapid fluctuations. Patient was started on metoprolol 25 mg twice daily and heart rate has been for the most part well controlled. Patient did have an echocardiogram that showed ejection fraction of 55%. Patient is debilitated and weak and will require additional therapy services and will be going to a fdc facility upon discharge. [] Patient Problems: Active and Suspected Problems Pressure injury of buttock, stage 4 (Acute) Leukocytosis (Acute) Sepsis (Acute) - Physical Exam Vitals/I&O's: Vital Signs Temp Pulse Resp BP Pulse Ox 37.0 C 94 16 105/68 94 11/08/19 15:07 11/08/19 15:07 11/08/19 15:07 11/08/19 15:07 11/08/19 15:07 Oxygen Flow Rate (L/min) 2 Oxygen Delivery Method Room Air Weight: 107.5 kg Body Mass Index (BMI) 31.5 Intake and Output for Last 24 Hours 11/06/19 11/07/19 11/08/19 23:59 23:59 23:59 Intake Total 8138.34 / 8138.34 6168.95 / 6788.95 3441.04 / 3441.04 Output Total 9300 / 9300 5975 / 8175 5900 / 5900 Balance -1161.66 / -1161.66 193.95 / -1386.05 -2458.96 / -2458.96 Microbiology Past 72 Hours 11/03/19 Unknown Biopsy - Tissue Gram Stain - Final 11/03/19 Unknown Biopsy - Tissue Wound Culture - Final Coag Negative Staph 11/03/19 Unknown Biopsy - Tissue Anaerobic Culture - Preliminary Checking for anaerobes, further studies to follow. 11/03/19 Unknown Biopsy - Bone Gram Stain - Final 11/03/19 Unknown Biopsy - Bone Wound Culture - Final Staphylococcus capitis 11/03/19 Unknown Biopsy - Bone Anaerobic Culture - Preliminary Checking for anaerobes, further studies to follow. 11/02/19 19:40 Blood Culture (Wb) - Left Hand Blood Culture - Final No growth in 5 days. 11/02/19 21:00 Blood Culture (Wb) - Venous Blood Culture - Final No growth in 5 days. 11/05/19 10:15 Urine Catheter - Catheter Urine Culture - Final Presumptive C albicans 11/04/19 13:10 Blood Culture (Wb) - Other Blood Culture - Preliminary No growth in 48 hours. Laboratory Results 11/03/19 22:10: Crossmatch See Detail 11/08/19 05:50: Sodium 141, Potassium 3.4 L, Chloride 106, Carbon Dioxide 30.0, Anion Gap 5, BUN 10, Creatinine 0.38 L, Estim Creat Clear Calc 145.44, Est GFR (MDRD) Af Amer 215, Est GFR (MDRD) Non-Af 178, BUN/Creatinine Ratio 26.0 H, Glucose 91, Calcium 8.3 L Current Medications Acetaminophen (Tylenol) 650 mg PO Q6H PRN PRN PRN Reason: fever/Noncardiac pain(4-10/10) Last Admin: 11/05/19 10:17 Dose: 650 mg Documented by: Hydrocodone Bitart/Acetaminophen ([place] 5mg-325mg) 1 - 2 tablet PO Q4H PRN PRN PRN Reason: Pain Score 4-10/10 Last Admin: 11/06/19 08:39 Dose: 2 tablet Documented by: Acetic Acid (Acetic Acid) 1,000 ml IR 2200 [facility] Last Admin: 11/07/19 20:46 Dose: 1,000 ml Documented by: Al Hydroxide/Mg Hydroxide (Mylanta Ii) 15 - 30 ml PO Q4H PRN PRN PRN Reason: INDIGESTION Ascorbic Acid (Vitamin C) 500 mg PO DAILY [facility] Last Admin: 11/08/19 10:21 Dose: 500 mg Documented by: Baclofen (Lioresal) 10 mg PO TID [facility] Last Admin: 11/08/19 14:45 Dose: 10 mg Documented by: Calamine/Phenol (Calmoseptine Ointment) 1 applic TOPICAL BID [facility]; Protocol Last Admin: 11/08/19 10:17 Dose: 1 applicatio Documented by: Cholecalciferol (Vitamin D) 1,000 unit PO DAILY [facility] Last Admin: 11/08/19 10:21 Dose: 1,000 unit Documented by: Enoxaparin Sodium (Lovenox) 90 mg SC Q12@0600,1800 [facility] Last Admin: 11/08/19 05:18 Dose: 90 mg Documented by: Hydralazine HCl (Apresoline Iv) 10 mg IV Q4H PRN PRN PRN Reason: SBP > 160 Sodium Chloride () 250 mls @ 15 mls/hr IV .[id number] PRN PRN Reason: Saline Flush Last Infusion: 11/07/19 09:59 Dose: Infused Documented by: Ceftriaxone Sodium 2 gm/ (Sodium Chloride) 50 mls @ 100 mls/hr IV Q24 [facility] Last Admin: 11/08/19 13:13 Dose: 100 mls/hr Documented by: Letrozole (Femara) 2.5 mg PO DAILY [facility] Last Admin: 11/08/19 10:19 Dose: 2.5 mg Documented by: Magnesium Hydroxide (Milk Of Magnesia) 30 ml PO DAILY PRN PRN Reason: Constipation Metoprolol Tartrate (Lopressor (Beta David)) 25 mg PO BID [facility] Last Admin: 11/08/19 10:21 Dose: 25 mg Documented by: Metronidazole (Flagyl) 500 mg PO TID [facility] Last Admin: 11/08/19 14:45 Dose: 500 mg Documented by: Nutritional Formula ([place] - [place] Flavor) [facility] Last Admin: 11/08/19 10:17 Dose: 1 packet Documented by: Nutritional Formula (Lactose Free) (Ensure Enlive) 120 ml PO 4X/DAY [facility] Last Admin: 11/08/19 14:45 Dose: 120 ml Documented by: Nystatin (Mycostatin Powder) 1 applic TOPICAL BID JESUS; Protocol Last Admin: 11/08/19 10:18 Dose: 1 applicatio Documented by: Oxybutynin Chloride (Ditropan) 10 mg PO BIDCM [facility] Last Admin: 11/08/19 10:18 Dose: 10 mg Documented by: Phenol/Menthol (Chloraseptic (Bkc)) 5 spray MM Q2H PRN PRN PRN Reason: sore throat Promethazine HCl (Phenergan) 6.25 mg IV Q4H PRN PRN PRN Reason: NAUSEA/VOMITING Sodium Chloride () 10 - 40 ml IV UD PRN PRN Reason: SALINE FLUSH Last Admin: 11/07/19 20:53 Dose: 10 ml Documented by: Throat Lozenges (Cepacol Sore Throat Lozenge) 2 lozenge MUCOUS MEM Q2H PRN PRN PRN Reason: SORE THROAT Last Admin: 11/07/19 21:09 Dose: 2 lozenge Documented by: Discharge Diet: No Restrictions Home Medications: Medications to take at Discharge Acetic Acid 1 applic IRRIGATION DAILY 11/03/19 Ascorbic Acid [Vitamin C] 1 tab PO DAILY 11/03/19 Baclofen 1 - 2 tab PO Q8H PRN PRN 11/03/19 Cholecalciferol (VIT D3) [Vitamin D3] 1,000 unit PO DAILY 11/03/19 Cholestyramine (with Sugar) [Cholestyramine Powder] 1 packet PO DAILY 11/03/19 Cranberry Fruit Extract [Cranberry] 200 mg PO DAILY 11/03/19 L. Rhamnosus GG/Inulin [Culturelle Digest 10B Cell Cap] 1 ea PO QODAY 11/03/19 Letrozole 1 tab PO DAILY 11/03/19 Nystatin Powder [Mycostatin Powder] 1 applic OTHER DAILY PRN PRN 11/03/19 Nystatin/Triamcin [Nystatin-Triamcinolone Cream] 1 applic OTHER DAILY 11/03/19 Oxybutynin [Ditropan] 2 tab PO BID 11/03/19 Vitamin E 400 unit PO DAILY 11/03/19 Acetaminophen [Tylenol Tablet] 650 mg PO Q6H PRN PRN tab 11/08/19 Ceftriaxone 2 gm IV Q24 38 Days #38 vial 11/08/19 Metoprolol Tartrate [Lopressor (beta david)] 25 mg PO BID tab 11/08/19 Nystatin Powder [Mycostatin Powder] 1 applic TOPICAL BID bottle 11/08/19 metroNIDAZOLE [Flagyl] 500 mg PO TID 38 Days #114 tab 11/08/19 Following Prescrptions Were Given to Patient: Ceftriaxone 2 gm IV Q24 38 Days #38 vial Prescription Printed Primary Care Physician: Jovon Levy MD [Primary Care Provider] - Within 1 Week Disposition: Detention facility Minutes spent on discharge:: 40 Patient Condition:: Fair Medical Necessity - Tobacco Use Smoking Status: Never smoker Tobacco Use: Non-smoker Meaningful Use Info Meaningful Use Diagnoses (Choose all that apply): None applicable Code Visit Inpatient E&M: 61535 Disch Hosp
--- NOTE | 2019-11-08 15:28 | CASEMGMT ---
Patient is ready for discharge. Faxed orders to [facility]. Completed convalescent on HENS. Called [facility] and arranged for patient to get picked up at 530 via cot. SW notified RN, patient, her , racing secretary and handicapper, and Bita at [place]. Plan: [facility] under skilled level of care on a convalescent stay. [facility] transported patient via cot. Swapna ESCALERA AUTOMOTIVE SERVICE WRITER
--- NOTE | 2019-11-08 15:48 | PCM.HP.ID ---
Problem List (1) Chronic osteomyelitis of right pelvic region Status: Chronic Reason for Consult: osteo Consulted by: Dr. Dillon History of Present Illness: The patient is a 64 year old F with MS, follows at wound care for R ischial wound. Wound worsened despite cipro/augmentin, admitted 11/02, taken to OR 11/[address] Dougherty for debridement. Had soft, irregular bone, sent for cx. Has been on vanc/zosyn. Feeling ok, wound vac in place, no fever, no nausea. Full ROS performed and neg except as noted above. 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, stage 2 (Chronic) Allergies/Adverse Reactions: Allergies bacitracin [From Neosporin ([id number])] Allergy (Verified 11/02/19 17:16) Rash neomycin [From Neosporin ([id number])] Allergy (Verified 11/02/19 17:16) Rash ondansetron [From Zofran] Allergy (Verified 11/02/19 17:16) Other PALPITATIONS polymyxin B [From Neosporin ([id number])] Allergy (Verified 11/02/19 17:16) Rash Sulfa (Sulfonamide Antibiotics) Allergy (Verified 11/02/19 17:16) Rash Home Medications: Ambulatory Orders Medication Instructions Recorded Acetic Acid 1 applic IRRIGATION DAILY 11/03/19 Ascorbic Acid [Vitamin C] 1 tab PO DAILY 11/03/19 Baclofen 1 - 2 tab PO Q8H PRN PRN 11/03/19 Cholecalciferol (VIT D3) [Vitamin 1,000 unit PO DAILY 11/03/19 D3] Cholestyramine (with Sugar) 1 packet PO DAILY 11/03/19 [Cholestyramine Powder] Cranberry Fruit Extract [Cranberry] 200 mg PO DAILY 11/03/19 L. Rhamnosus GG/Inulin [Culturelle 1 ea PO QODAY 11/03/19 Digest 10B Cell Cap] Letrozole 1 tab PO DAILY 11/03/19 Nystatin Powder [Mycostatin Powder] 1 applic OTHER DAILY PRN PRN 11/03/19 Nystatin/Triamcin 1 applic OTHER DAILY 11/03/19 [Nystatin-Triamcinolone Cream] Oxybutynin [Ditropan] 2 tab PO BID 11/03/19 Vitamin E 400 unit PO DAILY 11/03/19 Acetaminophen [Tylenol Tablet] 650 mg PO Q6H PRN PRN tab 11/08/19 Ceftriaxone 2 gm IV Q24 38 Days #38 vial 11/08/19 Metoprolol Tartrate [Lopressor 25 mg PO BID tab 11/08/19 (beta alex)] Nystatin Powder [Mycostatin Powder] 1 applic TOPICAL BID bottle 11/08/19 metroNIDAZOLE [Flagyl] 500 mg PO TID 38 Days #114 tab 11/08/19 - Social History Tobacco Use: non-smoker Vital Signs Temp Pulse Resp BP Pulse Ox 98.6 F 94 16 105/68 94 11/08/19 15:07 11/08/19 15:07 11/08/19 15:07 11/08/19 15:07 11/08/19 15:07 Oxygen Flow Rate (L/min) 2 Oxygen Delivery Method Room Air Weight: 107.5 kg Body Mass Index (BMI) 31.5 Microbiology Past 72 Hours 11/03/19 Unknown Gram Stain - Final Biopsy - Tissue Wound Culture - Final Coag Negative Staph Anaerobic Culture - Preliminary Checking for anaerobes, further studies to follow. 11/03/19 Unknown Gram Stain - Final Biopsy - Bone Wound Culture - Final Staphylococcus capitis Anaerobic Culture - Preliminary Checking for anaerobes, further studies to follow. 11/02/19 19:40 Blood Culture - Final Blood Culture (Wb) - Left Hand No growth in 5 days. 11/02/19 21:00 Blood Culture - Final Blood Culture (Wb) - Venous No growth in 5 days. 11/05/19 10:15 Urine Culture - Final Urine Catheter - Catheter Presumptive C albicans 11/04/19 13:10 Blood Culture - Preliminary Blood Culture (Wb) - Other No growth in 48 hours. Laboratory Tests Past 24 Hrs 11/03/19 11/08/19 22:10 05:50 Sodium 141 Potassium 3.4 L Chloride 106 Carbon Dioxide 30.0 Anion Gap 5 BUN 10 Creatinine 0.38 L Estim Creat Clear Calc 145.44 Est GFR (MDRD) Af Amer 215 Est GFR (MDRD) Non-Af 178 BUN/Creatinine Ratio 26.0 H Glucose 91 Calcium 8.3 L Crossmatch See Detail - Other Studies Radiology: [] reviewed Other Studies: [] Route of nutrition/ use of supplements: [] Nutritional Intake: [] IV Site: [] Patino Catheter: [] - Physical Exam General: Alert, Oriented x3, Cooperative, No apparent distress HEENT: Atraumatic, PERRLA, EOMI Neck: Supple, No Nodes Lungs: Clear to auscultation, Normal air movement Cardiovascular: Regular rate, Regular Rhythm Abdomen: Soft, Non Tender, Non-Distended Extremities: Edema Skin: Ulcer/ Wound - reviewed photos IV Site: PICC, without redness Musculoskeletal: No Tenderness to Palpation of Joints or Extremities Neurological: Cranial nerves II-XII grossly intact - Assessment/Plan Antibiotics: [] Assessment/Plan: [] Active and Suspected Problems Pressure injury of buttock, stage 4 (Acute) Leukocytosis (Acute) Sepsis (Acute) R ischial osteomyelitis - bone cx with staph capitis (methicillin-sens). Recent outpt wound cx with proteus, ecoli, bacteroides. Will narrow abx to ceftriaxone 2gm daily and po flagyl. Plan on 6 week course, stop date 12/15/19. Weekly bmp, cbc, and esr. ID followup at wound center in 3-4 weeks. Will follow, thank you, gerardo Dillon, wrote rx for abx and labs.
== END 2019-11-08 20:53 | disposition skilled nursing facility (03) | DRG 580 ==
LOC: ED 22:11 → MS3 23:28 → ICU 11-05 11:16 → PCU 11-06 18:47
PROVIDERS: Family Medicine; Internal Medicine Critical Care Medicine; Surgery; Admitting Provider Family Medicine; Emergency Provider Emergency Medicine; Family Provider Family Medicine; PCP Family Medicine
PROC: 0QB20ZZ Excision of Right Pelvic Bone, Open Approach (ICD-10-PCS; principal; 2019-11-03 11:15)
DX: L89.314 Pressure ulcer of right buttock, stage 4 (principal); L76.22 Postprocedural hemorrhage of skin and subcutaneous tissue following other procedure; M86.8X8 Other osteomyelitis, other site; D62 Acute posthemorrhagic anemia; E44.0 Moderate protein-calorie malnutrition; I47.1 Supraventricular tachycardia; G35 Multiple sclerosis; Z85.3 Personal history of malignant neoplasm of breast; E66.9 Obesity, unspecified; Z68.31 Body mass index [BMI] 31.0-31.9, adult; R53.81 Other malaise; L89.152 Pressure ulcer of sacral region, stage 2; I95.81 Postprocedural hypotension; E87.6 Hypokalemia; R60.0 Localized edema; B96.20 Unspecified Escherichia coli [E. coli] as the cause of diseases classified elsewhere; B96.4 Proteus (mirabilis) (morganii) as the cause of diseases classified elsewhere
CPT/HCPCS: 11042; 36415; 36569; 71045; 71275; 72192; 80048; 80053; 80202; 81001; 83605; 83735; 84100; 84134; 85014; 85018; 85025; 85610; 85730; 86850; 86900; 86901; 86920; 86922; 87040; 87070; 87075; 87076; 87077; 87086; 87088; 87102; 87176; 87186; 87205; 87206; 87640; 87641; 88305; 88311; 93005; 93306; 97110; 97162; 97166; 97530; 97803; 99251; 99285; J7030; J7040; J7050; J7120; P9016; Q9957; Q9967; A4216; G0463; J0696

== ENCOUNTER 2019-11-27 11:00 | Outpatient (RCR) | payer MEDICARE, SELFPAY ==
[2019-10-29 01:18] VITALS: BP 136/95; PULSE 123; RESP 20; TEMP 36.4
[2019-11-02 15:45] VITALS: BP 138/72; RESP 16; TEMP 35.8
--- NOTE | 2019-11-02 17:07 | PCM.WC.PN ---
(1) Pressure injury of buttock, stage 4 Status: Acute Qualifiers: Laterality: right Qualified Code(s): L89.314 - Pressure ulcer of right buttock, stage 4 Code(s): L89.304 - Pressure ulcer of unspecified buttock, stage 4 (2) Bilateral lower extremity edema Status: Acute Code(s): R60.0 - Localized edema (3) Debility Status: Acute Code(s): R53.81 - Other malaise (4) Multiple sclerosis Status: Acute Code(s): G35 - Multiple sclerosis (5) Pressure injury of sacral region, stage 2 Status: Chronic Code(s): L89.152 - Pressure ulcer of sacral region, stage 2 Type of Wound Date of Service: 11/08/19 Chief Complaint: Pressure injuries to sacral area and right buttock x2 months History of Wound: This is a 64-year-old white female who presents to the wound healing center today with her with complaint of nonhealing pressure injuries to sacrum and right buttock for the last 2 months. She has a past medical history as listed above significant for MS and is nonambulatory. She states that she spends most of the time in her wheelchair or a chair. She does have a pressure relieving cushion and mattress Topper. She notes that over the past 2 months these wounds have opened up and progressively worsened. She now notes a foul smell. She states that she has been utilizing Aquasol silver without much improvement. She denies any prior history of wounds in the past. She is not ambulatory and spends most of her time in the seated position. He does have chronic lower extremity edema and wears compression stockings at 30 to 40 mmHg. She denies any other acute concerns at this time. All other systems are reviewed and negative with exception of those listed above. Progress of Wound: Right stage IV buttock pressure injury worsening smell this week and patient and note worsening smell as well. Patient has been more fatigued and tired. A review of her blood work from [place] showed a white count of 18.4, neutrophil count of 15.2, and sed rate of 93. Patient also had a sodium of 128 and a prealbumin of 14. Patient is currently taking her ciprofloxacin and Augmentin. Given the patient's white count, worsening drainage and smell, and amount of eschar and necrotic tissue present in the patient's wound do feel that she would benefit from surgical debridement and also there is a concern for sepsis possibility. Discussed with patient and family member that patient should be seen in the emergency department. - Physical Exam Vital Signs Temp Pulse Resp BP 96.4 F L 123 H 16 138/72 H 11/02/19 15:45 10/29/19 01:18 11/02/19 15:45 11/02/19 15:45 Wound Measurements and Assessment WC - Nurse 1 - General Ulcer Measurement Start: 11/02/19 15:45 Freq: Status: Active Protocol: Activity Type Activity Date Activity User E-Sign Co-Sign Detail Recorded Client Recorded Date Recorded By Document 11/02/19 15:45 [facility] [id number] 11/02/19 15:57 [facility] 11/02/19 15:45 Wound Center Nurse 1 [Ulcer Assessment] #2- SACRUM -Combined with other wound No -Current Size (cm) - Length 0.9 -Current Size (cm) - Width 0.1 -Current Size (cm) - Depth 0.1 -Total Square Cm 0.09 -Photo Taken No -Epithelialization Medium 34-66% -Tunneling No -Undermining/Tunneling No -Circular Undermining No -Exudate Amt None Present -Wound Margin Flat & Intact -Granulation Amt Small (1-33%) -Granulation Quality Red -Slough/Fibrin No -Necrosis Amt None Present (0 %) -Texture (Janene-wound Skin Appearance) Assessed, Scarring -Moisture (Janene-wound Skin Appearance Assessed,Dry/ ) Scaly -Color (Janene-wound Skin Appearance) Assessed, Erythema -Temperature (Janene-wound Skin No Abnormality Appearance) (Pt Warm) -Tenderness on Palpation (Janene-wound No Skin Appearance) -Ulcer Cleansing SOAPY WATER -Foul Odor after Cleansing No -Anesthetic Used 4% Lidocaine Solution #1- R GLUTEAL FOLD -Combined with other wound No -Current Size (cm) - Length 2.2 -Current Size (cm) - Width 3 -Current Size (cm) - Depth 2.3 -Total Square Cm 6.6 -Photo Taken No -Epithelialization None Present -Tunneling No -Undermining/Tunneling Yes -Undermining/Tunneling Starts (O' 11 clock) -Undermining/Tunneling Ends (O'clock) 1 -Maximum Distance (cm) 4.2 -Circular Undermining No -Exudate Amt Large -Exudate Type Yellow/Green -Wound Margin Distinct, Outline Attached -Granulation Amt Large (67-100%) -Granulation Quality Red -Slough/Fibrin No -Necrosis Amt None Present (0 %) -Texture (Janene-wound Skin Appearance) Assessed, Scarring -Moisture (Janene-wound Skin Appearance Assessed ) -Color (Janene-wound Skin Appearance) Assessed, Erythema -Temperature (Janene-wound Skin No Abnormality Appearance) (Pt Warm) -Tenderness on Palpation (Janene-wound No Skin Appearance) -Ulcer Cleansing SOAPY WATER -Foul Odor after Cleansing No -Anesthetic Used 4% Lidocaine Solution WC - Nurse 2 - General Ulcer CM Notes Start: 11/02/19 15:45 Freq: Status: Active Protocol: Activity Type Activity Date Activity User E-Sign Co-Sign Detail Recorded Client Recorded Date Recorded By Document 11/02/19 16:40 MW [id number] 11/02/19 16:46 MW 11/02/19 16:40 Wound Center Nurse 2 [Procedure/Treatment] #2- SACRUM -Time 16:41 -Correct Patient Yes -Correct Side, Site, Position Yes -Correct Procedure Yes -Procedure Performed Yes -Type of Procedure Debridement -Clinical Debridement Subcutaneous -Post Debridement Size (cm) - Length 3.5 -Post Debridement Size (cm) - Width 3.5 -Post Debridement Size (cm) - Depth 5.0 -Total Square Cm 12.25 -Wound/Ulcer Outcome Not Healed -Ulcer Cleansing Rinsed/ Irrigated with Saline -Foul Odor after Cleansing No -Bioengineered Tissue No -Bleeding Controlled with Pressure -Offloading No #1- R GLUTEAL FOLD -Time 16:41 -Correct Patient Yes -Correct Side, Site, Position Yes -Correct Procedure Yes -Procedure Performed Yes -Type of Procedure Debridement -Clinical Debridement Subcutaneous -Post Debridement Size (cm) - Length 2.5 -Post Debridement Size (cm) - Width 3.0 -Post Debridement Size (cm) - Depth 2.3 -Total Square Cm 7.50 -Wound/Ulcer Outcome Not Healed -Ulcer Cleansing Rinsed/ Irrigated with Saline -Foul Odor after Cleansing No -Bioengineered Tissue No -Bleeding Controlled with Pressure -Offloading No -Treatment Response Procedure Tolerated Well [See Physician Procedure note for Specifics] Pain Scale: 0-10 Numeric [Pain] -Is Patient Pain Free? Yes Debridement Note Post-Debridement Measurements/Treatment WC - Nurse 2 - General Ulcer CM Notes Start: 11/02/19 15:45 Freq: Status: Active Protocol: Activity Type Activity Date Activity User E-Sign Co-Sign Detail Recorded Client Recorded Date Recorded By Document 11/02/19 16:40 MW [id number] 11/02/19 16:46 MW 11/02/19 16:40 Wound Center Nurse 2 #2- SACRUM -Time 16:41 -Correct Patient Yes -Correct Side, Site, Position Yes -Correct Procedure Yes -Procedure Performed Yes -Type of Procedure Debridement -Clinical Debridement Subcutaneous -Post Debridement Size (cm) - Length 3.5 -Post Debridement Size (cm) - Width 3.5 -Post Debridement Size (cm) - Depth 5.0 -Total Square Cm 12.25 -Wound/Ulcer Outcome Not Healed -Ulcer Cleansing Rinsed/ Irrigated with Saline -Foul Odor after Cleansing No -Bioengineered Tissue No -Bleeding Controlled with Pressure -Offloading No #1- R GLUTEAL FOLD -Time 16:41 -Correct Patient Yes -Correct Side, Site, Position Yes -Correct Procedure Yes -Procedure Performed Yes -Type of Procedure Debridement -Clinical Debridement Subcutaneous -Post Debridement Size (cm) - Length 2.5 -Post Debridement Size (cm) - Width 3.0 -Post Debridement Size (cm) - Depth 2.3 -Total Square Cm 7.50 -Wound/Ulcer Outcome Not Healed -Ulcer Cleansing Rinsed/ Irrigated with Saline -Foul Odor after Cleansing No -Bioengineered Tissue No -Bleeding Controlled with Pressure -Offloading No -Treatment Response Procedure Tolerated Well Pain Scale: 0-10 Numeric Is Patient Pain Free? Yes Assessment/Plan Active Problems Pressure injury of buttock, stage 4 (Acute) Leukocytosis (Acute) Sepsis (Acute) Assessment: See above diagnoses Plan: 11/02/19- patient referred to ER for further eval and management. The patient was seen and examined at the wound center today and was updated on the plan of care. A subcutaneous debridement was performed today. The patient tolerated the procedure well. The patients wound care will consist of: Continuing Aquacell silver and doing a foam dressing to her stage II pressure injury of the sacrum, santyl cover with gauze to the stage IV right buttock and will apply for wound VAC given the depth. Wound cultures were collected Prior and showed Proteus mirabilis, E. coli, anaerobic bacteria and patient was placed on Cipro and Augmentin Which she is tolerating.Patient was educated on the importance of offloading measures to take into consideration and of importance of offloading. Patient educated on the importance of diet on wound healing and instructed to increase protein and vitamin C intake. Patient verbalized understanding. Advised patient and who is caregiver that if symptoms worsen or if he has difficulty caring for her at home then she needs to go to the emergency department and consider long-term [facility] care. Did also discuss the benefits of a pressure relieving mattress and pressure relieving seat cushion. A referral will be made to plastics as I feel that the patient will benefit from surgical debridement. Patient will follow up at wound healing center in one week or sooner if needed. Given the duration of her wounds and the fact that she has failed standard wound therapy, will apply for an advanced skin substitutes. This note was generated with [employer] dictation software. It may contain incorrect words, spelling, and punctuation that were not noted in checking the note before signing. Code Visit 111xxx-113xx: 64076 Neeta subq tissue 20 sq cm/<
[2019-11-24 11:49] VITALS: BP 147/89; PULSE 89; RESP 18; TEMP 36.6; BMI 35.2
[2019-11-27 11:20] VITALS: BP 137/83; PULSE 108; RESP 20; TEMP 36.8; BMI 35.2
--- NOTE | 2019-11-27 16:15 | PCM.WC.PN ---
(1) Right ischial pressure sore, stage 4 Status: Chronic Code(s): L89.314 - Pressure ulcer of right buttock, stage 4 (2) Chronic osteomyelitis of right pelvic region Status: Chronic Code(s): M86.651 - Other chronic osteomyelitis, right thigh (3) Debility Status: Chronic Code(s): R53.81 - Other malaise (4) Multiple sclerosis Status: Chronic Code(s): G35 - Multiple sclerosis Type of Wound Date of Service: 11/27/19 Chief Complaint: Pressure injuries to sacral area and right buttock x2 months History of Wound: This is a 64-year-old white female who presents to the wound healing center today with her with complaint of nonhealing pressure injuries to sacrum and right buttock for the last 2 months. She has a past medical history as listed above significant for MS and is nonambulatory. She states that she spends most of the time in her wheelchair or a chair. She does have a pressure relieving cushion and mattress Topper. She notes that over the past 2 months these wounds have opened up and progressively worsened. She now notes a foul smell. She states that she has been utilizing Aquasol silver without much improvement. She denies any prior history of wounds in the past. She is not ambulatory and spends most of her time in the seated position. She does have chronic lower extremity edema and wears compression stockings at 30 to 40 mmHg. On 11/03/19 she had surgery for excision necrotic right ischial pressure sore, Stage IV, with partial ostectomy for osteomyelitis. She was discharged to a group home facility with a wound VAC and IV Ceftriaxone and oral metronidazole. Her operative cultures were positive for Coag negative staph, Clostridium group, Prevotella oralis, and Bacteroids thetaiotamicron. 11/04/19 prealbumin 9.7. She received 2 units of PRBCs while admitted. Last H/H on11/08/19 was 10.1/31.8 Progress of Wound: s/p operative debridement on 11/03/19. Wound VAC in place. - Physical Exam Vital Signs Temp Pulse Resp BP 98.3 F 108 H 20 H 137/83 H 11/27/19 11:20 11/27/19 11:20 11/27/19 11:20 11/27/19 11:20 General: Alert, Oriented x3, Cooperative HEENT: Atraumatic Oral: Moist Mucosa Lungs: Normal air movement Cardiovascular: Regular rate Abdomen: Obese Extremities: Capillary Refill Less than 3 Seconds Skin: Ulcer/ Wound - Left ischial ulcer Wound Measurements and Assessment WC - Nurse 1 - General Ulcer Measurement Start: 11/02/19 15:45 Freq: Status: Active Protocol: Activity Type Activity Date Activity User E-Sign Co-Sign Detail Recorded Client Recorded Date Recorded By Document 11/27/19 11:20 [facility] [id number] 11/27/19 11:29 [facility] 11/27/19 11:20 Wound Center Nurse 1 [Ulcer Assessment] #2- SACRUM -Combined with other wound No -Current Size (cm) - Length 0.1 -Current Size (cm) - Width 0.1 -Current Size (cm) - Depth 0.1 -Total Square Cm 0.01 -Photo Taken No -Epithelialization Small 1-33% -Tunneling No -Undermining/Tunneling No -Circular Undermining No -Exudate Amt None Present -Wound Margin Distinct, Outline Attached -Granulation Amt Small (1-33%) -Granulation Quality Red -Slough/Fibrin Yes -Necrosis Amt Medium (34-66%) -Necrotic Tissue Type Adherent Slough -Texture (Janene-wound Skin Appearance) Assessed, Scarring -Moisture (Janene-wound Skin Appearance Assessed ) -Color (Janene-wound Skin Appearance) Assessed, Erythema -Temperature (Janene-wound Skin No Abnormality Appearance) (Pt Warm) -Tenderness on Palpation (Janene-wound No Skin Appearance) -Ulcer Cleansing soapy water -Foul Odor after Cleansing No -Anesthetic Used 4% Lidocaine Solution #1- R GLUTEAL FOLD -Combined with other wound No -Current Size (cm) - Length 3.8 -Current Size (cm) - Width 5 -Current Size (cm) - Depth 4.3 -Total Square Cm 19.0 -Photo Taken No -Tunneling No -Undermining/Tunneling Yes -Undermining/Tunneling Starts (O' 10 clock) -Undermining/Tunneling Ends (O'clock) 2 -Maximum Distance (cm) 6 -Circular Undermining No -Exudate Amt Large -Exudate Type Serosanguineous -Wound Margin Distinct, Outline Attached -Granulation Amt Large (67-100%) -Granulation Quality Red -Slough/Fibrin Yes -Necrosis Amt Small (1-33%) -Necrotic Tissue Type Adherent Slough -Structure Exposed Bone -Texture (Janene-wound Skin Appearance) Assessed -Moisture (Janene-wound Skin Appearance Assessed,Dry/ ) Scaly -Color (Janene-wound Skin Appearance) Assessed -Temperature (Janene-wound Skin No Abnormality Appearance) (Pt Warm) -Tenderness on Palpation (Janene-wound Yes Skin Appearance) -Ulcer Cleansing soapy water -Foul Odor after Cleansing No -Anesthetic Used 4% Lidocaine Solution WC - Nurse 2 - General Ulcer CM Notes Start: 11/02/19 15:45 Freq: Status: Active Protocol: Activity Type Activity Date Activity User E-Sign Co-Sign Detail Recorded Client Recorded Date Recorded By Document 11/27/19 15:20 DL [id number] 11/27/19 15:22 DL 11/27/19 15:20 Wound Center Nurse 2 [Procedure/Treatment] #2- SACRUM -Time 15:21 -Correct Patient No -Correct Side, Site, Position No -Correct Procedure No -Procedure Performed No -Post Debridement Size (cm) - Length 0 -Post Debridement Size (cm) - Width 0 -Post Debridement Size (cm) - Depth 0 -Total Square Cm 0 -Wound/Ulcer Outcome Healed- Epithelialized #1- R GLUTEAL FOLD -Time 15:22 -Correct Patient Yes -Correct Side, Site, Position Yes -Correct Procedure Yes -Procedure Performed Yes -Type of Procedure Debridement -Clinical Debridement Muscle -Post Debridement Size (cm) - Length 5.3 -Post Debridement Size (cm) - Width 4.5 -Post Debridement Size (cm) - Depth 3.5 -Total Square Cm 23.85 -Wound/Ulcer Outcome Not Healed -Ulcer Cleansing Rinsed/ Irrigated with Saline -Foul Odor after Cleansing No -Bioengineered Tissue No -Bleeding Controlled with Pressure -Offloading No -Treatment Response Procedure Tolerated Well [See Physician Procedure note for Specifics] Pain Scale: 0-10 Numeric [Pain] -Is Patient Pain Free? Yes Musculoskeletal: No Tenderness to Palpation of Joints or Extremities Neurological: Neuro grossly intact Psych/Mental Status: Normal Affect, Appropriate Debridement Note Post-Debridement Measurements/Treatment LOUISE - Nurse 2 - General Ulcer CM Notes Start: 11/02/19 15:45 Freq: Status: Active Protocol: Activity Type Activity Date Activity User E-Sign Co-Sign Detail Recorded Client Recorded Date Recorded By Document 11/02/19 16:40 MW [id number] 11/02/19 16:46 MW Document 11/27/19 15:20 DL [id number] 11/27/19 15:22 DL 11/02/19 11/27/19 16:40 15:20 Wound Center Nurse 2 #2- SACRUM -Time 16:41 15:21 -Correct Patient Yes No -Correct Side, Site, Position Yes No -Correct Procedure Yes No -Procedure Performed Yes No -Type of Procedure Debridement -Clinical Debridement Subcutaneous -Post Debridement Size (cm) - Length 3.5 0 -Post Debridement Size (cm) - Width 3.5 0 -Post Debridement Size (cm) - Depth 5.0 0 -Total Square Cm 12.25 0 -Wound/Ulcer Outcome Not Healed Healed- Epithelialized -Ulcer Cleansing Rinsed/ Irrigated with Saline -Foul Odor after Cleansing No -Bioengineered Tissue No -Bleeding Controlled with Pressure -Offloading No #1- R GLUTEAL FOLD -Time 16:41 15:22 -Correct Patient Yes Yes -Correct Side, Site, Position Yes Yes -Correct Procedure Yes Yes -Procedure Performed Yes Yes -Type of Procedure Debridement Debridement -Clinical Debridement Subcutaneous Muscle -Post Debridement Size (cm) - Length 2.5 5.3 -Post Debridement Size (cm) - Width 3.0 4.5 -Post Debridement Size (cm) - Depth 2.3 3.5 -Total Square Cm 7.50 23.85 -Wound/Ulcer Outcome Not Healed Not Healed -Ulcer Cleansing Rinsed/ Rinsed/ Irrigated with Irrigated with Saline Saline -Foul Odor after Cleansing No No -Bioengineered Tissue No No -Bleeding Controlled with Pressure Pressure -Offloading No No -Treatment Response Procedure Procedure Tolerated Well Tolerated Well Pain Scale: 0-10 Numeric Is Patient Pain Free? Yes Yes Wound debrided: ischial ulcer Laterality: Right Type of Debridement: Excisional debridement Anesthesia Used: 5% Lidocaine Gel Depth: Down to and including healthy tissue, in the subcutaneous layer, to muscle Percentage of wound debrided: 100 Instrument Used: 5mm curette Tissue Removed: subcutaneous tissue and slough, into the muscle Severity: Fat Layer Exposed Amount of bleeding with debridement: Mild Bleeding Controlled with: Pressure Patient tolerated procedure well Assessment/Plan Assessment: 1. s/o Excision necrotic right ischial pressure sore, Stage IV, with partial ostectomy for osteomyelitis. 2. Ischial pressure sore, Stage IV. 3. Debility. 4. Osteomyelitis. 5. Multiple Sclerosis Plan: 11/02/19- patient referred to ER for further eval and management. The patient was seen and examined at the wound center today and was updated on the plan of care. A subcutaneous debridement was performed today. The patient tolerated the procedure well. The patients wound care will consist of: Wound VAC. Wound cultures were collected Prior and showed Proteus mirabilis, E. coli, anaerobic bacteria and patient was placed on Cipro and Augmentin Which she is tolerating.Patient was educated on the importance of offloading measures to take into consideration and of importance of offloading. Patient educated on the importance of diet on wound healing and instructed to increase protein and vitamin C intake. On 11/03/19 she had surgery for excision necrotic right ischial pressure sore, Stage IV, with partial ostectomy for osteomyelitis. She was discharged to a group home facility with a wound VAC and IV Ceftriaxone and oral metronidazole. Her operative cultures were positive for Coag negative staph, Clostridium group, Prevotella oralis, and Bacteroids thetaiotamicron. 11/04/19 prealbumin 9.7. She received 2 units of PRBCs while admitted. Last H/H on11/08/19 was 10.1/31.8. Encouraged to increase protein intake and take supplemental protein. She has been at a group home facility and her states she is doing well and he is hoping to take her home soon. Follow up 1 week with Ej Baires. We will see her monthly. She is scheduled to see Dr. Dougherty on 12/18/19. Code Visit 30046
== END 2019-11-28 23:59 ==
LOC: WC 11:00
PROVIDERS: Family Provider Family Medicine; PCP Family Medicine; Referring Provider Nurse Practitioner Family; Visit Provider Nurse Practitioner Family
DX: L89.314 Pressure ulcer of right buttock, stage 4 (principal); L89.214 Pressure ulcer of right hip, stage 4; R60.0 Localized edema; G35 Multiple sclerosis; L89.152 Pressure ulcer of sacral region, stage 2; B96.20 Unspecified Escherichia coli [E. coli] as the cause of diseases classified elsewhere; B96.4 Proteus (mirabilis) (morganii) as the cause of diseases classified elsewhere
CPT/HCPCS: 11042; 11043; 11046; 97605

== ENCOUNTER 2019-12-18 13:00 | Outpatient (RCR) | payer MEDICARE, SELFPAY ==
[2019-11-29 00:54] VITALS: BP 137/83; PULSE 108; RESP 20; TEMP 36.8; BMI 31.5
[2019-12-07 13:45] VITALS: BP 126/73; PULSE 114; RESP 18; TEMP 36.3; BMI 31.5
--- NOTE | 2019-12-12 16:36 | PCM.WC.PN ---
(1) Pressure injury, stage 4, with gangrene Status: Acute Code(s): I96 - Gangrene, not elsewhere classified; L89.94 - Pressure ulcer of unspecified site, stage 4 Comment: right buttock (2) Bilateral lower extremity edema Status: Acute Code(s): R60.0 - Localized edema (3) Chronic osteomyelitis of right pelvic region Status: Chronic Code(s): M86.651 - Other chronic osteomyelitis, right thigh (4) Debility Status: Chronic Code(s): R53.81 - Other malaise (5) Multiple sclerosis Status: Chronic Code(s): G35 - Multiple sclerosis Type of Wound Date of Service: 12/07/19 Chief Complaint: Pressure injuries to sacral area and right buttock x2 months History of Wound: This is a 64-year-old white female who presents to the wound healing center today with her with complaint of nonhealing pressure injuries to sacrum and right buttock for the last 2 months. She has a past medical history as listed above significant for MS and is nonambulatory. She states that she spends most of the time in her wheelchair or a chair. She does have a pressure relieving cushion and mattress Topper. She notes that over the past 2 months these wounds have opened up and progressively worsened. She now notes a foul smell. She states that she has been utilizing Aquasol silver without much improvement. She denies any prior history of wounds in the past. She is not ambulatory and spends most of her time in the seated position. She does have chronic lower extremity edema and wears compression stockings at 30 to 40 mmHg. On 11/03/19 she had surgery for excision necrotic right ischial pressure sore, Stage IV, with partial ostectomy for osteomyelitis. She was discharged to a [facility] facility with a wound VAC and IV Ceftriaxone and oral metronidazole. Her operative cultures were positive for Coag negative staph, Clostridium group, Prevotella oralis, and Bacteroids thetaiotamicron. 11/04/19 prealbumin 9.7. She received 2 units of PRBCs while admitted. Last H/H on11/08/19 was 10.1/31.8 Progress of Wound: Status post operative debridement by Dr. dougherty on 11/03/2019, wound VAC in place and patient tolerating well. Currently residing at [facility] facility. States she is compliant with her ordered antibiotics. - Physical Exam Vital Signs Temp Pulse Resp BP 97.3 F L 114 H 18 126/73 H 12/07/19 13:45 12/07/19 13:45 12/07/19 13:45 12/07/19 13:45 General: Alert, Oriented x3, Cooperative, No apparent distress HEENT: Atraumatic Oral: Moist Mucosa Lungs: Clear to auscultation, Normal air movement Cardiovascular: Regular rate Abdomen: Soft, Non Tender, Obese, - - Chronic Patino catheter Extremities: No clubbing, No cyanosis, No edema Skin: Ulcer/ Wound - See nursing documentation, small amount of slough present in right buttock ulcer, however site appears beefy red and granular Neurological: Neuro grossly intact Psych/Mental Status: Normal Affect, Appropriate, Alert and oriented to time, place, person, mood and affect Debridement Note Post-Debridement Measurements/Treatment WC - Nurse 2 - General Ulcer CM Notes Start: 12/07/19 13:45 Freq: Status: Active Protocol: Activity Type Activity Date Activity User E-Sign Co-Sign Detail Recorded Client Recorded Date Recorded By Document 12/07/19 14:08 MW [id number] 12/07/19 14:12 MW 12/07/19 14:08 Wound Center Nurse 2 #1- R GLUTEAL FOLD -Time 14:09 -Correct Patient Yes -Correct Side, Site, Position Yes -Correct Procedure Yes -Procedure Performed Yes -Type of Procedure Debridement -Clinical Debridement Muscle -Post Debridement Size (cm) - Length 6.0 -Post Debridement Size (cm) - Width 5.0 -Post Debridement Size (cm) - Depth 5.5 -Total Square Cm 30.00 -Wound/Ulcer Outcome Not Healed -Ulcer Cleansing Rinsed/ Irrigated with Saline -Foul Odor after Cleansing No -Bioengineered Tissue No -Bleeding Controlled with Pressure -Offloading No -Treatment Response Procedure Tolerated Well Pain Scale: 0-10 Numeric Is Patient Pain Free? Yes Wound debrided: Stage IV pressure injury of right buttock Laterality: Right Type of Debridement: Excisional debridement Anesthesia Used: 5% Lidocaine Gel Depth: to muscle Percentage of wound debrided: 100 Instrument Used: 7mm curette Tissue Removed: slough and Devitalized tissue Severity: Fat Layer Exposed Amount of bleeding with debridement: Mild Bleeding Controlled with: Pressure Patient tolerated procedure well Assessment/Plan Assessment: 1. s/o Excision necrotic right ischial pressure sore, Stage IV, with partial ostectomy for osteomyelitis. 2. Ischial pressure sore, Stage IV. 3. Debility. 4. Osteomyelitis. 5. Multiple Sclerosis Plan: The patient was seen and examined at the wound center today and was updated on the plan of care. A subcutaneous/muscular debridement was performed today. The patient tolerated the procedure well. The patients wound care will consist of: Wound VAC 125 mmhg with black foam.Change 3 times a week. Patient was educated on the importance of offloading measures to take into consideration and of importance of offloading. Patient educated on the importance of diet on wound healing and instructed to increase protein and vitamin C intake. On 11/03/19 she had surgery for excision necrotic right ischial pressure sore, Stage IV, with partial ostectomy for osteomyelitis. She was discharged to a [facility] facility with a wound VAC and IV Ceftriaxone and oral metronidazole. Her operative cultures were positive for Coag negative staph, Clostridium group, Prevotella oralis, and Bacteroids thetaiotamicron. 11/04/19 prealbumin 9.7. She received 2 units of PRBCs while admitted. Last H/H on11/08/19 was 10.1/31.8. Encouraged to increase protein intake and take supplemental protein. She has been at a [facility] facility and her states she is doing well and he is hoping to take her home soon. Follow up to see Dr. Dougherty on 12/18/19. Code Visit [id number]: [id number] Neeta musc/fascia 20 sq cm/<
[2019-12-18 12:58] VITALS: BP 122/77; PULSE 114; RESP 16; TEMP 36.8; BMI 31.5
--- NOTE | 2019-12-18 17:42 | PN.PCM_ITS ---
Type of Wound Date of Service: 12/18/19 Chief Complaint: Right ischial pressure sore, Stage IV. History of Wound: Surgery 11/03/19 - Excision necrotic right ischial pressure sore, Stage IV, with partial ostectomy for osteomyelitis. Wound care - VAC. Operative culture - Coag negative Staph, Clostridium group, Prevotella oralis, and Bacteroides thetaiotamicron in the soft tissue and Staphylococcus capitis, Bacteroides thetaiotamicron, and Clostridium group in the bone. She was discharged on Ceftriaxone and Flagyl. The Ceftriaxone was changed to PO Cephalosporin (Patient doesn't remember) because she developed a clot in the PICC line and it was pulled. She is due to finish the antibiotics at the end of the month. She states she will be discharged from the [facility] in the next few days. Pathology - negative for osteomyelitis. CT Pelvis from 11/03/19 showed There is a 2.6 cm x 3.5 cm soft tissue defect in the medial proximal right. buttock with the surrounding soft tissue swelling and edema. The. inflammatory changes extend into the right inferior pubic ramus with the. findings suggestive of a possible bony destruction secondary to. osteomyelitis. Dense calcifications are seen in the soft tissues overlying. both buttocks and the left side of the sacrum. This also evidence of a 3.2. cm x 4.1 cm soft tissue density involving the tip of the sacrum and coccyx. There is also evidence of multiple calcific densities and ossifications. overlying the right greater trochanter. There is also evidence of soft. tissue swelling at that site.. Prealbumin from 11/04/19 was 9.7. Encourage nutritional supplementation with protein to help the healing process. Today she denies fever. Her appetite is ok. Progress of Wound: Improved. - Physical Exam Vital Signs Temp Pulse Resp BP 98.2 F 114 H 16 122/77 H 12/18/19 12:58 12/18/19 12:58 12/18/19 12:58 12/18/19 12:58 Wound Measurements and Assessment WC - Nurse 1 - General Ulcer Measurement Start: 12/07/19 13:45 Freq: Status: Active Protocol: Activity Type Activity Date Activity User E-Sign Co-Sign Detail Recorded Client Recorded Date Recorded By Document 12/18/19 12:58 [facility] [id number] 12/18/19 13:12 BMF 12/18/19 12:58 Wound Center Nurse 1 [Ulcer Assessment] #1- R GLUTEAL FOLD -Combined with other wound No -Current Size (cm) - Length 2.5 -Current Size (cm) - Width 3 -Current Size (cm) - Depth 3.8 -Total Square Cm 7.5 -Photo Taken No -Epithelialization Small 1-33% -Tunneling No -Undermining/Tunneling No -Circular Undermining No -Exudate Amt Small -Exudate Type Serosanguineous -Wound Margin Distinct, Outline Attached -Granulation Amt Large (67-100%) -Granulation Quality Red -Slough/Fibrin No -Necrosis Amt None Present (0 %) -Texture (Janene-wound Skin Appearance) Assessed, Scarring -Moisture (Janene-wound Skin Appearance Assessed ) -Color (Janene-wound Skin Appearance) Assessed -Temperature (Janene-wound Skin No Abnormality Appearance) (Pt Warm) -Tenderness on Palpation (Janene-wound Yes Skin Appearance) -Ulcer Cleansing soapy water -Foul Odor after Cleansing No -Anesthetic Used 4% Lidocaine Solution WC - Nurse 2 - General Ulcer CM Notes Start: 12/07/19 13:45 Freq: Status: Active Protocol: Activity Type Activity Date Activity User E-Sign Co-Sign Detail Recorded Client Recorded Date Recorded By Document 12/18/19 13:23 KIRK [id number] 12/18/19 13:27 KIRK 12/18/19 13:23 Wound Center Nurse 2 [Procedure/Treatment] -Time 13:24 -Correct Patient Yes -Correct Side, Site, Position Yes -Correct Procedure Yes -Procedure Performed Yes -Type of Procedure Debridement -Clinical Debridement Muscle -Post Debridement Size (cm) - Length 3.0 -Post Debridement Size (cm) - Width 2.5 -Post Debridement Size (cm) - Depth 3.4 -Total Square Cm 7.50 -Wound/Ulcer Outcome Not Healed -Ulcer Cleansing Rinsed/ Irrigated with Saline -Foul Odor after Cleansing No -Bioengineered Tissue No -Bleeding Controlled with Pressure -Offloading No -Treatment Response Procedure Tolerated Well [See Physician Procedure note for Specifics] Pain Scale: 0-10 Numeric [Pain] -Is Patient Pain Free? Yes Debridement Note Post-Debridement Measurements/Treatment WC - Nurse 2 - General Ulcer CM Notes Start: 12/07/19 13:45 Freq: Status: Active Protocol: Activity Type Activity Date Activity User E-Sign Co-Sign Detail Recorded Client Recorded Date Recorded By Document 12/07/19 14:08 [id number] 12/07/19 14:12 MW Document 12/18/19 13:23 [id number] 12/18/19 13:27 12/07/19 12/18/19 14:08 13:23 Wound Center Nurse 2 #1- R GLUTEAL FOLD -Time 14:09 13:24 -Correct Patient Yes Yes -Correct Side, Site, Position Yes Yes -Correct Procedure Yes Yes -Procedure Performed Yes Yes -Type of Procedure Debridement Debridement -Clinical Debridement Muscle Muscle -Post Debridement Size (cm) - Length 6.0 3.0 -Post Debridement Size (cm) - Width 5.0 2.5 -Post Debridement Size (cm) - Depth 5.5 3.4 -Total Square Cm 30.00 7.50 -Wound/Ulcer Outcome Not Healed Not Healed -Ulcer Cleansing Rinsed/ Rinsed/ Irrigated with Irrigated with Saline Saline -Foul Odor after Cleansing No No -Bioengineered Tissue No No -Bleeding Controlled with Pressure Pressure -Offloading No No -Treatment Response Procedure Procedure Tolerated Well Tolerated Well Pain Scale: 0-10 Numeric Is Patient Pain Free? Yes Yes Wound debrided: #1 Right ischial area. Laterality: Right Wound Grade/Stage: IV. Type of Debridement: Excisional debridement Anesthesia Used: 4% Lidocaine Solution Depth: Down to and including healthy tissue, in the subcutaneous layer, to muscle, to bone - bone is exposed but not debrided. Percentage of wound debrided: 100 Instrument Used: 5mm curette Tissue Removed: subcutaneous tissue and muscle. Severity: Fat Layer Exposed - muscle is exposed. bone is exposed but not debrided. Amount of bleeding with debridement: Mild Bleeding Controlled with: Pressure Patient tolerated procedure well Assessment/Plan Assessment: 1. Necrotic right ischial pressure sore, Stage IV. 2. Osteomyelitis. 3. Multiple sclerosis. 4. s/p excision necrotic right ischial pressure sore, Stage IV, with partial ostectomy for osteomyelitis. Plan: Continue the VAC. She is set to be discharged from the [facility] in a few days. She is finishing her antibiotics at the end of the month (Cephalosporin PO and Flagyl) for operative cultures that showed Coag negative Staph, Clostridium group, Prevotella oralis, and Bacteroides thetaiotamicron in the soft tissue and Staphylococcus capitis, Bacteroides thetaiotamicron, and Clostridium group in the bone. Prealbumin from 11/04/19 was 9.7. Encourage nutritional supplementation with protein to help the healing process. Followup 2 weeks to see Ej Baires. Followup 4 weeks to see me. Code Visit [id number]-[id number]: [id number] Global Visit - ICD-10 - V58.49, L89.314, I96, M86.651, G35
== END 2019-12-29 23:59 ==
LOC: WC 13:00
PROVIDERS: Family Provider Family Medicine; PCP Family Medicine; Referring Provider Nurse Practitioner Family; Visit Provider Nurse Practitioner Family
DX: L89.214 Pressure ulcer of right hip, stage 4 (principal); R60.0 Localized edema; G35 Multiple sclerosis; L89.152 Pressure ulcer of sacral region, stage 2; B96.20 Unspecified Escherichia coli [E. coli] as the cause of diseases classified elsewhere; B96.4 Proteus (mirabilis) (morganii) as the cause of diseases classified elsewhere; M86.651 Other chronic osteomyelitis, right thigh
CPT/HCPCS: 11043; 97605

== ENCOUNTER 2020-01-15 10:00 | Outpatient (RCR) | payer MEDICARE, SELFPAY ==
[2019-12-30 00:49] VITALS: BP 122/77; PULSE 114; RESP 16; TEMP 36.8
[2020-01-04 13:03] VITALS: BP 118/83; PULSE 112; RESP 16; TEMP 36.6; BMI 31.5
--- NOTE | 2020-01-04 14:02 | PN.PCM_ITS ---
(1) Right ischial pressure sore, stage 4 Status: Chronic Current Visit: Yes Code(s): L89.314 - Pressure ulcer of right buttock, stage 4 (2) Bilateral lower extremity edema Status: Acute Current Visit: No Code(s): R60.0 - Localized edema (3) History of breast cancer Status: Acute Current Visit: No Code(s): Z85.3 - Personal history of malignant neoplasm of breast (4) Chronic osteomyelitis of right pelvic region Status: Chronic Current Visit: No Code(s): M86.651 - Other chronic osteomyelitis, right thigh (5) Debility Status: Chronic Current Visit: No Code(s): R53.81 - Other malaise (6) Multiple sclerosis Status: Chronic Current Visit: No Code(s): G35 - Multiple sclerosis Type of Wound Date of Service: 01/04/20 Chief Complaint: Right ischial pressure sore, Stage IV. History of Wound: Surgery 11/03/19 - Excision necrotic right ischial pressure sore, Stage IV, with partial ostectomy for osteomyelitis. Wound care - VAC. Operative culture - Coag negative Staph, Clostridium group, Prevotella oralis, and Bacteroides thetaiotamicron in the soft tissue and Staphylococcus capitis, Bacteroides thetaiotamicron, and Clostridium group in the bone. She was discharged on Ceftriaxone and Flagyl. The Ceftriaxone was changed to PO Cephalosporin (Patient doesn't remember) because she developed a clot in the PICC line and it was pulled. She is due to finish the antibiotics at the end of the month. She states she will be discharged from the [facility] in the next few days. Pathology - negative for osteomyelitis. CT Pelvis from 11/03/19 showed There is a 2.6 cm x 3.5 cm soft tissue defect in the medial proximal right. buttock with the surrounding soft tissue swelling and edema. The. inflammatory changes extend into the right inferior pubic ramus with the. findings suggestive of a possible bony destruction secondary to. osteomyelitis. Dense calcifications are seen in the soft tissues overlying. both buttocks and the left side of the sacrum. This also evidence of a 3.2. cm x 4.1 cm soft tissue density involving the tip of the sacrum and coccyx. There is also evidence of multiple calcific densities and ossifications. overlying the right greater trochanter. There is also evidence of soft. tissue swelling at that site.. Prealbumin from 11/04/19 was 9.7. Encourage nutritional supplementation with protein to help the healing process. Today she denies fever. Her appetite is ok. Progress of Wound: Stable, no new concerns, recent wound culture was done by home health and was negative. - Physical Exam Vital Signs Temp Pulse Resp BP 97.8 F 112 H 16 118/83 H 01/04/20 13:03 01/04/20 13:03 01/04/20 13:03 01/04/20 13:03 General: Alert, Oriented x3, Cooperative, No apparent distress HEENT: Atraumatic Oral: Moist Mucosa Lungs: Clear to auscultation, Normal air movement Cardiovascular: Regular rate, Regular Rhythm Abdomen: Soft, Non Tender, Obese Extremities: No clubbing, No cyanosis, Edema - Generalized bilateral lower extremity edema Skin: Ulcer/ Wound - See nursing documentation, right ischium with slough and devitalized tissue, probes to bone, no signs of obvious infection at this time, no odor Wound Measurements and Assessment WC - Nurse 1 - General Ulcer Measurement Start: 01/04/20 13:02 Freq: Status: Active Protocol: Activity Type Activity Date Activity User E-Sign Co-Sign Detail Recorded Client Recorded Date Recorded By Document 01/04/20 13:03 [id number] 01/04/20 13:13 KIRK 01/04/20 13:03 Wound Center Nurse 1 [Ulcer Assessment] #1- R GLUTEAL FOLD -Combined with other wound No -Current Size (cm) - Length 2.7 -Current Size (cm) - Width 3.2 -Current Size (cm) - Depth 4.4 -Total Square Cm 8.64 -Photo Taken Yes -Epithelialization Small 1-33% -Tunneling No -Undermining/Tunneling No -Circular Undermining No -Exudate Amt Medium -Exudate Type Serosanguineous -Wound Margin Flat & Intact -Granulation Amt Large (67-100%) -Granulation Quality Red -Slough/Fibrin Yes -Necrosis Amt Small (1-33%) -Necrotic Tissue Type Adherent Slough -Structure Exposed Bone -Texture (Janene-wound Skin Appearance) Assessed -Moisture (Janene-wound Skin Appearance Assessed,Dry/ ) Scaly -Color (Janene-wound Skin Appearance) Assessed -Temperature (Janene-wound Skin No Abnormality Appearance) (Pt Warm) -Tenderness on Palpation (Janene-wound No Skin Appearance) -Ulcer Cleansing Wound Cleanser -Foul Odor after Cleansing No -Anesthetic Used 4% Lidocaine Solution [Edema Assessment] -Lower Limb Edema Present NA - Nurse 2 - General Ulcer CM Notes Start: 01/04/20 13:02 Freq: Status: Active Protocol: Activity Type Activity Date Activity User E-Sign Co-Sign Detail Recorded Client Recorded Date Recorded By Document 01/04/20 13:23 [id number] 01/04/20 13:27 01/04/20 13:23 Wound Center Nurse 2 [Procedure/Treatment] #1- R GLUTEAL FOLD -Time 13:25 -Correct Patient Yes -Correct Side, Site, Position Yes -Correct Procedure Yes -Procedure Performed Yes -Type of Procedure Debridement -Clinical Debridement Muscle -Post Debridement Size (cm) - Length 3.5 -Post Debridement Size (cm) - Width 3.5 -Post Debridement Size (cm) - Depth 4.5 -Total Square Cm 12.25 -Wound/Ulcer Outcome Not Healed -Ulcer Cleansing Rinsed/ Irrigated with Saline -Foul Odor after Cleansing No -Bioengineered Tissue No -Bleeding Controlled with Pressure -Offloading No -Treatment Response Procedure Tolerated Well [See Physician Procedure note for Specifics] Pain Scale: 0-10 Numeric [Pain] -Is Patient Pain Free? Yes Neurological: Neuro grossly intact Psych/Mental Status: Normal Affect, Appropriate, Alert and oriented to time, place, person, mood and affect Debridement Note Post-Debridement Measurements/Treatment - Nurse 2 - General Ulcer CM Notes Start: 01/04/20 13:02 Freq: Status: Active Protocol: Activity Type Activity Date Activity User E-Sign Co-Sign Detail Recorded Client Recorded Date Recorded By Document 01/04/20 13:23 JF [id number] 01/04/20 13:27 JF 01/04/20 13:23 Wound Center Nurse 2 #1- R GLUTEAL FOLD -Time 13:25 -Correct Patient Yes -Correct Side, Site, Position Yes -Correct Procedure Yes -Procedure Performed Yes -Type of Procedure Debridement -Clinical Debridement Muscle -Post Debridement Size (cm) - Length 3.5 -Post Debridement Size (cm) - Width 3.5 -Post Debridement Size (cm) - Depth 4.5 -Total Square Cm 12.25 -Wound/Ulcer Outcome Not Healed -Ulcer Cleansing Rinsed/ Irrigated with Saline -Foul Odor after Cleansing No -Bioengineered Tissue No -Bleeding Controlled with Pressure -Offloading No -Treatment Response Procedure Tolerated Well Pain Scale: 0-10 Numeric Is Patient Pain Free? Yes Wound debrided: Stage IV right ischial pressure sore Laterality: Right Type of Debridement: Excisional debridement Anesthesia Used: 5% Lidocaine Gel Depth: to muscle Percentage of wound debrided: 100 Instrument Used: 7mm curette Tissue Removed: Slough and devitalized tissue Severity: Necrosis of Muscle Amount of bleeding with debridement: Mild Bleeding Controlled with: Pressure Patient tolerated procedure well Assessment/Plan Active Problems Right ischial pressure sore, stage 4 (Chronic) Assessment: 1. Necrotic right ischial pressure sore, Stage IV. 2. Osteomyelitis. 3. Multiple sclerosis. 4. s/p excision necrotic right ischial pressure sore, Stage IV, with partial ostectomy for osteomyelitis. Plan: Continue the VAC. She is currently at home receiving home health 3 times a week. She recently completed her antibiotics at the end of the month (Cephalosporin PO and Flagyl) for operative cultures that showed Coag negative Staph, Clostridium group, Prevotella oralis, and Bacteroides thetaiotamicron in the soft tissue and Staphylococcus capitis, Bacteroides thetaiotamicron, and Clostridium group in the bone. Recent wound culture from was negative. Prealbumin from 11/04/19 was 9.7. Encourage nutritional supplementation with protein to help the healing process. Followup [address] Dougherty. Followup 4 weeks to see Ej Baires NP.
--- NOTE | 2020-01-15 10:35 | PCM.WC.PN ---
(1) Right ischial pressure sore, stage 4 Status: Chronic Current Visit: Yes Code(s): L89.314 - Pressure ulcer of right buttock, stage 4 (2) Candidal skin infection Status: Acute Current Visit: Yes Code(s): B37.2 - Candidiasis of skin and nail (3) Debility Status: Chronic Current Visit: Yes Code(s): R53.81 - Other malaise (4) Multiple sclerosis Status: Chronic Current Visit: Yes Code(s): G35 - Multiple sclerosis Type of Wound Date of Service: 01/15/20 Chief Complaint: Right ischial pressure sore, Stage IV. History of Wound: Surgery 11/03/19 - Excision necrotic right ischial pressure sore, Stage IV, with partial ostectomy for osteomyelitis. Wound care - VAC. Operative culture - Coag negative Staph, Clostridium group, Prevotella oralis, and Bacteroides thetaiotamicron in the soft tissue and Staphylococcus capitis, Bacteroides thetaiotamicron, and Clostridium group in the bone. She was discharged on Ceftriaxone and Flagyl. The Ceftriaxone was changed to PO Cephalosporin (Patient doesn't remember) because she developed a clot in the PICC line and it was pulled. She completed antibiotics. She has been discharged from the [facility] and is at home. Pathology - negative for osteomyelitis. CT Pelvis from 11/03/19 showed There is a 2.6 cm x 3.5 cm soft tissue defect in the medial proximal right. buttock with the surrounding soft tissue swelling and edema. The. inflammatory changes extend into the right inferior pubic ramus with the. findings suggestive of a possible bony destruction secondary to. osteomyelitis. Dense calcifications are seen in the soft tissues overlying. both buttocks and the left side of the sacrum. This also evidence of a 3.2. cm x 4.1 cm soft tissue density involving the tip of the sacrum and coccyx. There is also evidence of multiple calcific densities and ossifications. overlying the right greater trochanter. There is also evidence of soft. tissue swelling at that site.. Prealbumin from 11/04/19 was 9.7. Encourage nutritional supplementation with protein to help the healing process. Today she denies fever. Her appetite is ok. Progress of Wound: Stable, no new concerns, recent wound culture was done by home health and was negative. - Physical Exam Vital Signs Temp Pulse Resp BP 96.9 F L 102 H 16 109/80 01/15/20 13:08 01/15/20 13:08 01/15/20 13:08 01/15/20 13:08 General: Alert, Oriented x3, Cooperative HEENT: Atraumatic Oral: Moist Mucosa Lungs: Normal air movement Cardiovascular: Regular rate Extremities: Capillary Refill Less than 3 Seconds Skin: Ulcer/ Wound - right sacral/gluteal fold ulcer with bone exposure. Wound Measurements and Assessment WC - Nurse 1 - General Ulcer Measurement Start: 01/04/20 13:02 Freq: Status: Active Protocol: Activity Type Activity Date Activity User E-Sign Co-Sign Detail Recorded Client Recorded Date Recorded By Document 01/15/20 13:08 [facility] [id number] 01/15/20 13:19 [facility] 01/15/20 13:08 Wound Center Nurse 1 [Ulcer Assessment] #1- R GLUTEAL FOLD -Combined with other wound No -Current Size (cm) - Length 2.1 -Current Size (cm) - Width 2.4 -Current Size (cm) - Depth 4.5 -Total Square Cm 5.04 -Photo Taken No -Epithelialization Small 1-33% -Tunneling No -Undermining/Tunneling No -Circular Undermining No -Exudate Amt Medium -Exudate Type Sanguineous -Wound Margin Distinct, Outline Attached -Granulation Amt Large (67-100%) -Granulation Quality Red -Slough/Fibrin No -Necrosis Amt None Present (0 %) -Texture (Janene-wound Skin Appearance) Assessed, Excoriation, Scarring,Rash -Moisture (Janene-wound Skin Appearance Assessed ) -Color (Janene-wound Skin Appearance) Assessed -Temperature (Janene-wound Skin No Abnormality Appearance) (Pt Warm) -Tenderness on Palpation (Janene-wound Yes Skin Appearance) -Ulcer Cleansing soapy water -Foul Odor after Cleansing No -Anesthetic Used 5% Lidocaine Gel WC - Nurse 2 - General Ulcer CM Notes Start: 01/04/20 13:02 Freq: Status: Active Protocol: Activity Type Activity Date Activity User E-Sign Co-Sign Detail Recorded Client Recorded Date Recorded By Document 01/15/20 13:35 [id number] 01/15/20 13:36 01/15/20 13:35 Wound Center Nurse 2 [Procedure/Treatment] -Time 13:35 -Correct Patient Yes -Correct Side, Site, Position Yes -Correct Procedure Yes -Procedure Performed Yes -Type of Procedure Debridement -Clinical Debridement Muscle -Post Debridement Size (cm) - Length 2.4 -Post Debridement Size (cm) - Width 2.4 -Post Debridement Size (cm) - Depth 6.5 -Total Square Cm 5.76 -Wound/Ulcer Outcome Not Healed -Ulcer Cleansing Rinsed/ Irrigated with Saline -Foul Odor after Cleansing No -Bioengineered Tissue No -Bleeding Controlled with Pressure -Offloading No -Treatment Response Procedure Tolerated Well [See Physician Procedure note for Specifics] Pain Scale: 0-10 Numeric [Pain] -Is Patient Pain Free? Yes Musculoskeletal: No Tenderness to Palpation of Joints or Extremities Neurological: Neuro grossly intact Psych/Mental Status: Normal Affect, Appropriate Debridement Note Post-Debridement Measurements/Treatment WC - Nurse 2 - General Ulcer CM Notes Start: 01/04/20 13:02 Freq: Status: Active Protocol: Activity Type Activity Date Activity User E-Sign Co-Sign Detail Recorded Client Recorded Date Recorded By Document 01/04/20 13:23 [id number] 01/04/20 13:27 Document 01/15/20 13:35 [id number] 01/15/20 13:36 01/04/20 01/15/20 13:23 13:35 Wound Center Nurse 2 #1- R GLUTEAL FOLD -Time 13:25 13:35 -Correct Patient Yes Yes -Correct Side, Site, Position Yes Yes -Correct Procedure Yes Yes -Procedure Performed Yes Yes -Type of Procedure Debridement Debridement -Clinical Debridement Muscle Muscle -Post Debridement Size (cm) - Length 3.5 2.4 -Post Debridement Size (cm) - Width 3.5 2.4 -Post Debridement Size (cm) - Depth 4.5 6.5 -Total Square Cm 12.25 5.76 -Wound/Ulcer Outcome Not Healed Not Healed -Ulcer Cleansing Rinsed/ Rinsed/ Irrigated with Irrigated with Saline Saline -Foul Odor after Cleansing No No -Bioengineered Tissue No No -Bleeding Controlled with Pressure Pressure -Offloading No No -Treatment Response Procedure Procedure Tolerated Well Tolerated Well Pain Scale: 0-10 Numeric Is Patient Pain Free? Yes Yes Wound debrided: sacral/gluteal fold ulcer Laterality: Right Type of Debridement: Excisional debridement Anesthesia Used: 5% Lidocaine Gel Depth: Down to and including healthy tissue, in the subcutaneous layer, to muscle - with bone exposure palpable. Percentage of wound debrided: 100 Instrument Used: 7mm curette Tissue Removed: subcutaneous tissue and slough into the muscle Severity: Fat Layer Exposed - bone is palpable Amount of bleeding with debridement: Mild Bleeding Controlled with: Pressure Patient tolerated procedure well Assessment/Plan Active Problems Candidal skin infection (Acute) Chronic osteomyelitis of right pelvic region (Chronic) Right ischial pressure sore, stage 4 (Chronic) Debility (Chronic) Multiple sclerosis (Chronic) Assessment: 1. Necrotic right ischial pressure sore, Stage IV. 2. Osteomyelitis. 3. Multiple sclerosis. 4. s/p excision necrotic right ischial pressure sore, Stage IV, with partial ostectomy for osteomyelitis. Plan: Continue the VAC. She is currently at home receiving home health 3 times a week. She recently completed her antibiotics at the end of the month (Cephalosporin PO and Flagyl) for operative cultures that showed Coag negative Staph, Clostridium group, Prevotella oralis, and Bacteroides thetaiotamicron in the soft tissue and Staphylococcus capitis, Bacteroides thetaiotamicron, and Clostridium group in the bone. Recent wound culture from was negative. Prealbumin from 11/04/19 was 9.7. Encourage nutritional supplementation with protein to help the healing process. Concerned that the opening of the ulcer is closing faster than the depth is improving. Will monitor closely. Followup 2 weeks. Code Visit [id number]: [id number] Global Visit
[2020-01-15 13:08] VITALS: BP 109/80; PULSE 102; RESP 16; TEMP 36.1; BMI 31.5
== END 2020-01-27 23:59 ==
LOC: WC 10:00
PROVIDERS: Family Provider Family Medicine; PCP Family Medicine; Referring Provider Nurse Practitioner Family; Visit Provider Nurse Practitioner Family
DX: L89.214 Pressure ulcer of right hip, stage 4 (principal); R60.0 Localized edema; G35 Multiple sclerosis; Z85.3 Personal history of malignant neoplasm of breast; M86.651 Other chronic osteomyelitis, right thigh; B37.2 Candidiasis of skin and nail
CPT/HCPCS: 11043; 97605

== ENCOUNTER 2020-01-29 11:08 | Outpatient (RCR) | payer MEDICARE, SELFPAY ==
[2020-01-28 00:37] VITALS: BP 109/80; PULSE 102; RESP 16; TEMP 36.1
[2020-01-29 13:00] VITALS: BP 126/70; PULSE 109; RESP 18; TEMP 35.9; BMI 31.5
--- NOTE | 2020-01-29 16:28 | PN.PCM_ITS ---
(1) Right ischial pressure sore, stage 4 Status: Chronic Code(s): L89.314 - Pressure ulcer of right buttock, stage 4 (2) Chronic osteomyelitis of right pelvic region Status: Chronic Code(s): M86.651 - Other chronic osteomyelitis, right thigh (3) Debility Status: Chronic Code(s): R53.81 - Other malaise (4) Multiple sclerosis Status: Chronic Code(s): G35 - Multiple sclerosis (5) Bilateral lower extremity edema Status: Chronic Code(s): R60.0 - Localized edema Type of Wound Date of Service: 01/29/20 Chief Complaint: Right ischial pressure sore, Stage IV. History of Wound: Surgery 11/03/19 - Excision necrotic right ischial pressure sore, Stage IV, with partial ostectomy for osteomyelitis. Wound care - VAC. Operative culture - Coag negative Staph, Clostridium group, Prevotella oralis, and Bacteroides thetaiotamicron in the soft tissue and Staphylococcus capitis, Bacteroides thetaiotamicron, and Clostridium group in the bone. She was discharged on Ceftriaxone and Flagyl. The Ceftriaxone was changed to PO Cephalosporin (Patient doesn't remember) because she developed a clot in the PICC line and it was pulled. She completed antibiotics. She has been discharged from the [facility] and is at home. Pathology - negative for osteomyelitis. CT Pelvis from 11/03/19 showed There is a 2.6 cm x 3.5 cm soft tissue defect in the medial proximal right. buttock with the surrounding soft tissue swelling and edema. The. inflammatory changes extend into the right inferior pubic ramus with the. findings suggestive of a possible bony destruction secondary to. osteomyelitis. Dense calcifications are seen in the soft tissues overlying. both buttocks and the left side of the sacrum. This also evidence of a 3.2. cm x 4.1 cm soft tissue density involving the tip of the sacrum and coccyx. There is also evidence of multiple calcific densities and ossifications. overlying the right greater trochanter. There is also evidence of soft. tissue swelling at that site.. Prealbumin from 11/04/19 was 9.7. Encourage nutritional supplementation with protein to help the healing process. Today she denies fever. Her appetite is ok. Progress of Wound: Stable, no new concerns, recent wound culture was done by home health and was negative. - Physical Exam Vital Signs Temp Pulse Resp BP 96.6 F L 109 H 18 126/70 H 01/29/20 13:00 01/29/20 13:00 01/29/20 13:00 01/29/20 13:00 General: Alert, Oriented x3, Cooperative HEENT: Atraumatic Oral: Moist Mucosa Lungs: Normal air movement Cardiovascular: Regular rate Extremities: Capillary Refill Less than 3 Seconds, Edema Skin: Ulcer/ Wound - Right ischial ulcer Wound Measurements and Assessment WC - Nurse 1 - General Ulcer Measurement Start: 01/29/20 13:00 Freq: Status: Active Protocol: Activity Type Activity Date Activity User E-Sign Co-Sign Detail Recorded Client Recorded Date Recorded By Document 01/29/20 13:00 DL [id number] 01/29/20 13:16 DL 01/29/20 13:00 Wound Center Nurse 1 [Ulcer Assessment] #1- R GLUTEAL FOLD -Current Size (cm) - Length 2 -Current Size (cm) - Width 2.2 -Current Size (cm) - Depth 2.8 -Total Square Cm 4.4 -Photo Taken No -Exudate Amt Medium -Exudate Type Serosanguineous -Wound Margin Distinct, Outline Attached -Granulation Amt Medium (34-66%) -Granulation Quality Red -Necrosis Amt Medium (34-66%) -Necrotic Tissue Type Adherent Slough -Structure Exposed N/A -Texture (Janene-wound Skin Appearance) Excoriation, Scarring -Moisture (Janene-wound Skin Appearance No Abnormality ) -Color (Janene-wound Skin Appearance) No Abnormality -Temperature (Janene-wound Skin No Abnormality Appearance) (Pt Warm) -Tenderness on Palpation (Janene-wound No Skin Appearance) -Ulcer Cleansing Wound Cleanser -Foul Odor after Cleansing No -Anesthetic Used 4% Lidocaine Solution - Nurse 2 - General Ulcer CM Notes Start: 01/29/20 13:00 Freq: Status: Active Protocol: Activity Type Activity Date Activity User E-Sign Co-Sign Detail Recorded Client Recorded Date Recorded By Document 01/29/20 13:31 KIRK [id number] 01/29/20 13:32 KIRK 01/29/20 13:31 Wound Center Nurse 2 [Procedure/Treatment] -Time 13:31 -Correct Patient Yes -Correct Side, Site, Position Yes -Correct Procedure Yes -Procedure Performed Yes -Type of Procedure Debridement -Clinical Debridement Muscle -Post Debridement Size (cm) - Length 2.3 -Post Debridement Size (cm) - Width 2.5 -Post Debridement Size (cm) - Depth 6.0 -Total Square Cm 5.75 -Wound/Ulcer Outcome Not Healed -Ulcer Cleansing Rinsed/ Irrigated with Saline -Foul Odor after Cleansing No -Bioengineered Tissue No -Bleeding Controlled with Pressure -Offloading No -Treatment Response Procedure Tolerated Well [See Physician Procedure note for Specifics] Pain Scale: 0-10 Numeric [Pain] -Is Patient Pain Free? Yes Musculoskeletal: No Tenderness to Palpation of Joints or Extremities Neurological: Neuro grossly intact Psych/Mental Status: Normal Affect, Appropriate Debridement Note Post-Debridement Measurements/Treatment WC - Nurse 2 - General Ulcer CM Notes Start: 01/29/20 13:00 Freq: Status: Active Protocol: Activity Type Activity Date Activity User E-Sign Co-Sign Detail Recorded Client Recorded Date Recorded By Document 01/29/20 13:31 KIRK [id number] 01/29/20 13:32 KIRK 01/29/20 13:31 Wound Center Nurse 2 #1- R GLUTEAL FOLD -Time 13:31 -Correct Patient Yes -Correct Side, Site, Position Yes -Correct Procedure Yes -Procedure Performed Yes -Type of Procedure Debridement -Clinical Debridement Muscle -Post Debridement Size (cm) - Length 2.3 -Post Debridement Size (cm) - Width 2.5 -Post Debridement Size (cm) - Depth 6.0 -Total Square Cm 5.75 -Wound/Ulcer Outcome Not Healed -Ulcer Cleansing Rinsed/ Irrigated with Saline -Foul Odor after Cleansing No -Bioengineered Tissue No -Bleeding Controlled with Pressure -Offloading No -Treatment Response Procedure Tolerated Well Pain Scale: 0-10 Numeric Is Patient Pain Free? Yes Wound debrided: ischial ulcer Laterality: Right Type of Debridement: Excisional debridement Anesthesia Used: 4% Lidocaine Solution, 5% Lidocaine Gel Depth: Down to and including healthy tissue, in the subcutaneous layer, to muscle Percentage of wound debrided: 100 Instrument Used: 5mm curette Tissue Removed: Subcutaneous tissue and slough into the muscle with bone expo sure Severity: Fat Layer Exposed Amount of bleeding with debridement: Mild Bleeding Controlled with: Pressure Patient tolerated procedure well Assessment/Plan Assessment: 1. Necrotic right ischial pressure sore, Stage IV. 2. Osteomyelitis. 3. Multiple sclerosis. 4. s/p excision necrotic right ischial pressure sore, Stage IV, with partial ostectomy for osteomyelitis. Plan: Continue the VAC. She is currently at home receiving home health 3 times a week. She recently completed her antibiotics at the end of the month (Cephalosporin PO and Flagyl) for operative cultures that showed Coag negative Staph, Clostridium group, Prevotella oralis, and Bacteroides thetaiotamicron in the soft tissue and Staphylococcus capitis, Bacteroides thetaiotamicron, and Clostridium group in the bone. Recent wound culture from was negative. Prealbumin from 11/04/19 was 9.7. Encourage nutritional supplementation with protein to help the healing process. Concerned that the opening of the ulcer is closing faster than the depth is improving. Will monitor closely. Followup 3 weeks. [id number]: [id number] Global Visit
== END 2020-02-27 23:59 ==
LOC: WC 11:08
PROVIDERS: Family Provider Family Medicine; PCP Family Medicine; Visit Provider Nurse Practitioner Family
DX: L89.314 Pressure ulcer of right buttock, stage 4 (principal); M86.651 Other chronic osteomyelitis, right thigh; R60.0 Localized edema; G35 Multiple sclerosis; Z85.3 Personal history of malignant neoplasm of breast
CPT/HCPCS: 11043; 97605

== ENCOUNTER 2020-03-18 10:00 | Outpatient (RCR) | payer MEDICARE, SELFPAY ==
[2020-02-28 00:31] VITALS: BP 126/70; PULSE 109; RESP 18; TEMP 35.9
[2020-03-01 10:09] VITALS: BP 137/82; PULSE 94; RESP 16; TEMP 36.9; BMI 31.5
--- NOTE | 2020-03-01 11:50 | PCM.WC.PN ---
(1) Right ischial pressure sore, stage 4 Status: Chronic Current Visit: Yes Code(s): L89.314 - Pressure ulcer of right buttock, stage 4 (2) Candidal skin infection Status: Acute Current Visit: Yes Code(s): B37.2 - Candidiasis of skin and nail (3) Chronic osteomyelitis of right pelvic region Status: Chronic Current Visit: Yes Code(s): M86.651 - Other chronic osteomyelitis, right thigh (4) Debility Status: Chronic Current Visit: Yes Code(s): R53.81 - Other malaise (5) Multiple sclerosis Status: Chronic Current Visit: Yes Code(s): G35 - Multiple sclerosis Type of Wound Date of Service: 03/01/20 Chief Complaint: Right ischial pressure sore, Stage IV. History of Wound: Surgery 11/03/19 - Excision necrotic right ischial pressure sore, Stage IV, with partial ostectomy for osteomyelitis. Wound care - VAC. Will take a wound VAC holiday for 1 week due to to the severity of her rash that appears to be yeast. Operative culture - Coag negative Staph, Clostridium group, Prevotella oralis, and Bacteroides thetaiotamicron in the soft tissue and Staphylococcus capitis, Bacteroides thetaiotamicron, and Clostridium group in the bone. She was discharged on Ceftriaxone and Flagyl. The Ceftriaxone was changed to PO Cephalosporin (Patient doesn't remember) because she developed a clot in the PICC line and it was pulled. She completed antibiotics. She has been discharged from the [facility] and is at home. Pathology - negative for osteomyelitis. CT Pelvis from 11/03/19 showed There is a 2.6 cm x 3.5 cm soft tissue defect in the medial proximal right. buttock with the surrounding soft tissue swelling and edema. The. inflammatory changes extend into the right inferior pubic ramus with the. findings suggestive of a possible bony destruction secondary to. osteomyelitis. Dense calcifications are seen in the soft tissues overlying. both buttocks and the left side of the sacrum. This also evidence of a 3.2. cm x 4.1 cm soft tissue density involving the tip of the sacrum and coccyx. There is also evidence of multiple calcific densities and ossifications. overlying the right greater trochanter. There is also evidence of soft. tissue swelling at that site.. Prealbumin from 11/04/19 was 9.7. Encourage nutritional supplementation with protein to help the healing process. Today she denies fever. Her appetite is ok. Progress of Wound: Right sacral ulcer is stable, it does have significant undermining with concern that the opening is going to close before the undermining can heal. The skin surrounding her wound is extremely red and excoriated, it looks like yeast. - Physical Exam Vital Signs Temp Pulse Resp BP 98.5 F 94 16 137/82 H 03/01/20 10:09 03/01/20 10:09 03/01/20 10:09 03/01/20 10:09 General: Alert, Cooperative HEENT: Atraumatic Oral: Moist Mucosa Lungs: Normal air movement Cardiovascular: Regular rate Extremities: Capillary Refill Less than 3 Seconds Skin: Ulcer/ Wound - Right ischial stage IV ulcer., Rash Present - Significant red rash covering buttocks and lower back. Wound Measurements and Assessment WC - Nurse 1 - General Ulcer Measurement Start: 03/01/20 10:03 Freq: Status: Active Protocol: Activity Type Activity Date Activity User E-Sign Co-Sign Detail Recorded Client Recorded Date Recorded By Document 03/01/20 10:09 [facility] [id number] 03/01/20 10:20 [facility] 03/01/20 10:09 Wound Center Nurse 1 [Ulcer Assessment] #1- R GLUTEAL FOLD -Combined with other wound No -Current Size (cm) - Length 1.4 -Current Size (cm) - Width 1.2 -Current Size (cm) - Depth 4.6 -Total Square Cm 1.68 -Photo Taken Yes -Epithelialization Small 1-33% -Exudate Amt Medium -Exudate Type Serosanguineous -Wound Margin Distinct, Outline Attached -Granulation Amt Large (67-100%) -Granulation Quality Red -Texture (Janene-wound Skin Appearance) Assessed, Excoriation -Moisture (Janene-wound Skin Appearance Assessed ) -Color (Janene-wound Skin Appearance) Assessed, Erythema -Temperature (Janene-wound Skin No Abnormality Appearance) (Pt Warm) -Tenderness on Palpation (Janene-wound Yes Skin Appearance) -Ulcer Cleansing soapy water -Foul Odor after Cleansing No -Anesthetic Used 4% Lidocaine Solution WC - Nurse 2 - General Ulcer CM Notes Start: 03/01/20 10:03 Freq: Status: Active Protocol: Activity Type Activity Date Activity User E-Sign Co-Sign Detail Recorded Client Recorded Date Recorded By Document 03/01/20 11:22 DV [id number] 03/01/20 11:24 DV 03/01/20 11:22 Wound Center Nurse 2 [Procedure/Treatment] -Time 11:23 -Correct Patient Yes -Correct Side, Site, Position Yes -Correct Procedure Yes -Procedure Performed Yes -Type of Procedure Debridement -Clinical Debridement Subcutaneous -Post Debridement Size (cm) - Length 1.8 -Post Debridement Size (cm) - Width 2.0 -Post Debridement Size (cm) - Depth 6.5 -Total Square Cm 3.60 -Wound/Ulcer Outcome Not Healed -Ulcer Cleansing Rinsed/ Irrigated with Saline -Foul Odor after Cleansing No -Bioengineered Tissue No -Bleeding Controlled with Pressure -Offloading No -Treatment Response Procedure Tolerated Well [See Physician Procedure note for Specifics] Pain Scale: 0-10 Numeric [Pain] -Is Patient Pain Free? Yes Musculoskeletal: Tenderness Neurological: Neuro grossly intact Psych/Mental Status: Normal Affect, Appropriate Debridement Note Post-Debridement Measurements/Treatment WC - Nurse 2 - General Ulcer CM Notes Start: 03/01/20 10:03 Freq: Status: Active Protocol: Activity Type Activity Date Activity User E-Sign Co-Sign Detail Recorded Client Recorded Date Recorded By Document 03/01/20 11:22 DV [id number] 03/01/20 11:24 DV 03/01/20 11:22 Wound Center Nurse 2 #1- R GLUTEAL FOLD -Time 11:23 -Correct Patient Yes -Correct Side, Site, Position Yes -Correct Procedure Yes -Procedure Performed Yes -Type of Procedure Debridement -Clinical Debridement Subcutaneous -Post Debridement Size (cm) - Length 1.8 -Post Debridement Size (cm) - Width 2.0 -Post Debridement Size (cm) - Depth 6.5 -Total Square Cm 3.60 -Wound/Ulcer Outcome Not Healed -Ulcer Cleansing Rinsed/ Irrigated with Saline -Foul Odor after Cleansing No -Bioengineered Tissue No -Bleeding Controlled with Pressure -Offloading No -Treatment Response Procedure Tolerated Well Pain Scale: 0-10 Numeric Is Patient Pain Free? Yes Wound debrided: Right ischial ulcer Laterality: Right Wound Grade/Stage: Stage IV Type of Debridement: Excisional debridement Anesthesia Used: 5% Lidocaine Gel Depth: Down to and including healthy tissue, in the subcutaneous layer Percentage of wound debrided: 100 Instrument Used: 3mm curette Tissue Removed: Subcutaneous tissue and slough Severity: Fat Layer Exposed Amount of bleeding with debridement: Mild Bleeding Controlled with: Pressure Patient tolerated procedure well Assessment/Plan Active Problems Candidal skin infection (Acute) Chronic osteomyelitis of right pelvic region (Chronic) Right ischial pressure sore, stage 4 (Chronic) Debility (Chronic) Multiple sclerosis (Chronic) Assessment: 1. Necrotic right ischial pressure sore, Stage IV. 2. Osteomyelitis. 3. Multiple sclerosis. 4. s/p excision necrotic right ischial pressure sore, Stage IV, with partial ostectomy for osteomyelitis. Plan: We will take a wound VAC holiday for 1 week due to the severity of the yeast infection on her skin. Wound care will be Dakin's moistened gauze placed into the tunneled area twice daily. Her has been instructed on how to do the wound care. She is currently at home receiving home health 3 times a week. Due to the severity of the fungal rash we will start her on Diflucan 200 mg once daily for 14 days. We will also start her on nystatin/triamcinolone cream twice daily to the affected area for 14 days. Hopefully this combination of medications will decrease the severity of this rash. She recently completed her antibiotics at the end of the month (Cephalosporin PO and Flagyl) for operative cultures that showed Coag negative Staph, Clostridium group, Prevotella oralis, and Bacteroides thetaiotamicron in the soft tissue and Staphylococcus capitis, Bacteroides thetaiotamicron, and Clostridium group in the bone. Recent wound culture from was negative. Prealbumin from 11/04/19 was 9.7. Encourage nutritional supplementation with protein to help the healing process. Concerned that the opening of the ulcer is closing faster than the depth is improving. Will monitor closely. Followup March 11 with Delia, and March [address] Dougherty so he can further evaluate the undermining of this ulcer. [id number]: [id number] Neeta subq tissue 20 sq cm/<
[2020-03-11 14:03] VITALS: BP 119/72; PULSE 111; RESP 18; TEMP 35.9; BMI 31.5
--- NOTE | 2020-03-11 15:01 | PN.PCM_ITS ---
(1) Right ischial pressure sore, stage 4 Status: Chronic Current Visit: Yes Code(s): L89.314 - Pressure ulcer of right buttock, stage 4 (2) Candidal skin infection Status: Acute Current Visit: Yes Code(s): B37.2 - Candidiasis of skin and nail (3) Chronic osteomyelitis of right pelvic region Status: Chronic Current Visit: Yes Code(s): M86.651 - Other chronic osteomyelitis, right thigh (4) Debility Status: Chronic Current Visit: Yes Code(s): R53.81 - Other malaise (5) Multiple sclerosis Status: Chronic Current Visit: Yes Code(s): G35 - Multiple sclerosis Type of Wound Date of Service: 03/11/20 Chief Complaint: Right ischial pressure sore, Stage IV. History of Wound: Surgery 11/03/19 - Excision necrotic right ischial pressure sore, Stage IV, with partial ostectomy for osteomyelitis. Wound care - VAC. We took a wound VAC holiday for 1 week due to to the severity of her rash that appears to be yeast. Will restart the VAC today. Periwound is looking better, the yeast isn't completely resolved but much better looking. Operative culture - Coag negative Staph, Clostridium group, Prevotella oralis, and Bacteroides thetaiotamicron in the soft tissue and Staphylococcus capitis, Bacteroides thetaiotamicron, and Clostridium group in the bone. She was discharged on Ceftriaxone and Flagyl. The Ceftriaxone was changed to PO Cephalosporin (Patient doesn't remember) because she developed a clot in the PICC line and it was pulled. She completed antibiotics. She has been discharged from the [facility] and is at home. Pathology - negative for osteomyelitis. CT Pelvis from 11/03/19 showed There is a 2.6 cm x 3.5 cm soft tissue defect in the medial proximal right. buttock with the surrounding soft tissue swelling and edema. The. inflammatory changes extend into the right inferior pubic ramus with the. find ings suggestive of a possible bony destruction secondary to. osteomyelitis. Dense calcifications are seen in the soft tissues overlying. both buttocks and the left side of the sacrum. This also evidence of a 3.2. cm x 4.1 cm soft tissue density involving the tip of the sacrum and coccyx. There is also evidence of multiple calcific densities and ossifications. overlying the right greater trochanter. There is also evidence of soft. tissue swelling at that site.. Prealbumin from 11/04/19 was 9.7. Encourage nutritional supplementation with protein to help the healing process. Today she denies fever. Her appetite is ok. Progress of Wound: Right sacral ulcer is stable, it does have significant undermining. The periwound where the yeast is improved but not completely healed. - Physical Exam Vital Signs Temp Pulse Resp BP 96.7 F L 111 H 18 119/72 03/11/20 14:03 03/11/20 14:03 03/11/20 14:03 03/11/20 14:03 General: Alert, Oriented x3, Cooperative HEENT: Atraumatic Oral: Moist Mucosa Lungs: Normal air movement Cardiovascular: Regular rate Extremities: Capillary Refill Less than 3 Seconds Skin: Ulcer/ Wound - Sacral ulcer with undermining. The periwound is not excoriated but there continues to be areas of redness. Overall it has improved over the past week, it should continue improve as she completes the treatment. Wound Measurements and Assessment WC - Nurse 1 - General Ulcer Measurement Start: 03/01/20 10:03 Freq: Status: Active Protocol: Activity Type Activity Date Activity User E-Sign Co-Sign Detail Recorded Client Recorded Date Recorded By Document 03/11/20 14:03 DL [id number] 03/11/20 14:12 DL 03/11/20 14:03 Wound Center Nurse 1 [Ulcer Assessment] #1- R GLUTEAL FOLD -Current Size (cm) - Length 1.6 -Current Size (cm) - Width 2.2 -Current Size (cm) - Depth 4.5 -Total Square Cm 3.52 -Photo Taken No -Exudate Amt Small -Exudate Type Serosanguineous -Wound Margin Distinct, Outline Attached -Granulation Amt Large (67-100%) -Granulation Quality Red -Necrosis Amt Small (1-33%) -Necrotic Tissue Type Adherent Slough -Structure Exposed N/A -Texture (Janene-wound Skin Appearance) Excoriation, Scarring -Moisture (Janene-wound Skin Appearance No Abnormality ) -Color (Janene-wound Skin Appearance) Mottled,Rubor -Temperature (Janene-wound Skin No Abnormality Appearance) (Pt Warm) -Tenderness on Palpation (Janene-wound No Skin Appearance) -Ulcer Cleansing Wound Cleanser -Foul Odor after Cleansing No -Anesthetic Used 4% Lidocaine Solution - Nurse 2 - General Ulcer CM Notes Start: 03/01/20 10:03 Freq: Status: Active Protocol: Activity Type Activity Date Activity User E-Sign Co-Sign Detail Recorded Client Recorded Date Recorded By Document 03/11/20 14:24 DL [id number] 03/11/20 14:33 DL 03/11/20 14:24 Wound Center Nurse 2 [Procedure/Treatment] -Time 14:28 -Correct Patient Yes -Correct Side, Site, Position Yes -Correct Procedure Yes -Procedure Performed Yes -Type of Procedure Debridement -Clinical Debridement Muscle -Post Debridement Size (cm) - Length 1.8 -Post Debridement Size (cm) - Width 2.8 -Post Debridement Size (cm) - Depth 6.3 -Total Square Cm 5.04 -Wound/Ulcer Outcome Not Healed -Ulcer Cleansing Rinsed/ Irrigated with Saline -Foul Odor after Cleansing No -Bioengineered Tissue No -Bleeding Controlled with Pressure -Offloading No -Treatment Response Procedure Tolerated Well [See Physician Procedure note for Specifics] Pain Scale: 0-10 Numeric [Pain] -Is Patient Pain Free? Yes Musculoskeletal: No Tenderness to Palpation of Joints or Extremities Neurological: Neuro grossly intact Psych/Mental Status: Normal Affect, Appropriate Debridement Note Post-Debridement Measurements/Treatment - Nurse 2 - General Ulcer CM Notes Start: 03/01/20 10:03 Freq: Status: Active Protocol: Activity Type Activity Date Activity User E-Sign Co-Sign Detail Recorded Client Recorded Date Recorded By Document 03/01/20 11:22 DV [id number] 03/01/20 11:24 DV Document 03/11/20 14:24 DL [id number] 03/11/20 14:33 DL 03/01/20 03/11/20 11:22 14:24 Wound Center Nurse 2 #1- R GLUTEAL FOLD -Time 11:23 14:28 -Correct Patient Yes Yes -Correct Side, Site, Position Yes Yes -Correct Procedure Yes Yes -Procedure Performed Yes Yes -Type of Procedure Debridement Debridement -Clinical Debridement Subcutaneous Muscle -Post Debridement Size (cm) - Length 1.8 1.8 -Post Debridement Size (cm) - Width 2.0 2.8 -Post Debridement Size (cm) - Depth 6.5 6.3 -Total Square Cm 3.60 5.04 -Wound/Ulcer Outcome Not Healed Not Healed -Ulcer Cleansing Rinsed/ Rinsed/ Irrigated with Irrigated with Saline Saline -Foul Odor after Cleansing No No -Bioengineered Tissue No No -Bleeding Controlled with Pressure Pressure -Offloading No No -Treatment Response Procedure Procedure Tolerated Well Tolerated Well Pain Scale: 0-10 Numeric Is Patient Pain Free? Yes Yes Wound debrided: Sacral ulcer Type of Debridement: Excisional debridement Anesthesia Used: 4% Lidocaine Solution, 5% Lidocaine Gel Depth: Down to and including healthy tissue, in the subcutaneous layer Percentage of wound debrided: 100 Instrument Used: 7mm curette Tissue Removed: Subcutaneous tissue and slough into the muscle Severity: Fat Layer Exposed Amount of bleeding with debridement: Mild Bleeding Controlled with: Pressure Patient tolerated procedure well Assessment/Plan Active Problems Candidal skin infection (Acute) Chronic osteomyelitis of right pelvic region (Chronic) Right ischial pressure sore, stage 4 (Chronic) Debility (Chronic) Multiple sclerosis (Chronic) Assessment: 1. Necrotic right ischial pressure sore, Stage IV. 2. Osteomyelitis. 3. Multiple sclerosis. 4. s/p excision necrotic right ischial pressure sore, Stage IV, with partial ostectomy for osteomyelitis. Plan: We took a wound VAC holiday for 1 week due to the severity of the yeast infection on her skin. Wound care- will restart the wound VAC. She will continue the treatment for the fungal rash which is improving which is Diflucan 200 mg once daily for 14 days and nystatin/triamcinolone cream twice daily to the affected area for 14 days. Hopefully this combination of medications will decrease the severity of this rash. She recently completed her antibiotics at the end of the month (Cephalosporin PO and Flagyl) for operative cultures that showed Coag negative Staph, Clostridium group, Prevotella oralis, and Ba cteroides thetaiotamicron in the soft tissue and Staphylococcus capitis, Bacteroides thetaiotamicron, and Clostridium group in the bone. Recent wound culture from was negative. Prealbumin from 11/04/19 was 9.7. Encourage nutritional supplementation with protein to help the healing process. Concerned that the opening of the ulcer is closing faster than the depth is improving. Will monitor closely. Followup one week.
[2020-03-18 10:06] VITALS: BP 129/79; PULSE 116; RESP 20; TEMP 36.9; BMI 31.5
[2020-03-18 15:31] LABS: ALB/GLOB Ratio 0.5 RATIO (0.9-2.4); AST(SGOT) 14 U/L (15-37); Alanine Aminotransfer ALT/SGPT 21 U/L (13-56); Albumin, Serum 2.9 g/dL (3.2-5.0); Alkaline Phosphatase 102 U/L (45-117); Anion Gap 7 (5-15); BUN 13 mg/dL (7-18); Calcium,Total 9.7 mg/dL (8.5-10.1); Chloride 103 mmol/L (98-107); Creatinine, Serum 0.43 mg/dL (0.55-1.02); EST Glomerular Filtration Rate 155 mL/min (>60); Est Glom Filt Rate - Afr Amer 187 mL/min (>60); Estimated Creatinine Clearance 126.84 ml/min; Globulin 5.8 g/dL (2.2-4.2); Glucose 79 mg/dL (74-106); Protein, Total 8.7 g/dL (6.4-8.2); Sodium Level 137 mmol/L (136-145)
--- NOTE | 2020-03-18 21:22 | PCM.WC.PN ---
Type of Wound Date of Service: 03/18/20 Chief Complaint: Right ischial pressure sore, Stage IV. History of Wound: Surgery 11/03/19 - Excision necrotic right ischial pressure sore, Stage IV, with partial ostectomy for osteomyelitis. Wound care - VAC. Operative culture - Coag negative Staph, Clostridium group, Prevotella oralis, and Bacteroides thetaiotamicron in the soft tissue and Staphylococcus capitis, Bacteroides thetaiotamicron, and Clostridium group in the bone. She was discharged on Ceftriaxone and Flagyl. The Ceftriaxone was changed to Cefdinir because she developed a clot in the PICC line and it was pulled. She has finished the antibiotics. With the recent periwound fungal rash, she was started on Diflucan. Pathology - negative for osteomyelitis. CT Pelvis from 11/03/19 showed There is a 2.6 cm x 3.5 cm soft tissue defect in the medial proximal right. buttock with the surrounding soft tissue swelling and edema. The. inflammatory changes extend into the right inferior pubic ramus with the findings suggestive of a possible bony destruction secondary to osteomyelitis. Dense calcifications are seen in the soft tissues overlying. both buttocks and the left side of the sacrum. This also evidence of a 3.2. cm x 4.1 cm soft tissue density involving the tip of the sacrum and coccyx. There is also evidence of multiple calcific densities and ossifications overlying the right greater trochanter. There is also evidence of soft tissue swelling at that site. Prealbumin from 11/04/19 was 9.7. Encourage nutritional supplementation with protein to help the healing process. Today she denies fever. Her appetite is ok. Progress of Wound: Right sacral ulcer is stable. The fungal area in the periwound area has improved. - Physical Exam Vital Signs Temp Pulse Resp BP 98.4 F 116 H 20 H 129/79 H 03/18/20 10:06 03/18/20 10:06 03/18/20 10:06 03/18/20 10:06 Wound Measurements and Assessment WC - Nurse 1 - General Ulcer Measurement Start: 03/01/20 10:03 Freq: Status: Active Protocol: Activity Type Activity Date Activity User E-Sign Co-Sign Detail Recorded Client Recorded Date Recorded By Document 03/18/20 10:06 DL [id number] 03/18/20 10:20 DL 03/18/20 10:06 Wound Center Nurse 1 [Ulcer Assessment] #1- R GLUTEAL FOLD -Current Size (cm) - Length 2 -Current Size (cm) - Width 1.6 -Current Size (cm) - Depth 2.4 -Total Square Cm 3.2 -Undermining/Tunneling Starts (O' 10 clock) -Undermining/Tunneling Ends (O'clock) 3 -Maximum Distance (cm) 4.8 -Exudate Amt Medium -Exudate Type Serosanguineous -Wound Margin Distinct, Outline Attached -Granulation Amt Medium (34-66%) -Granulation Quality Red -Necrosis Amt Medium (34-66%) -Necrotic Tissue Type Adherent Slough -Structure Exposed N/A -Texture (Janene-wound Skin Appearance) Excoriation, Scarring -Moisture (Janene-wound Skin Appearance No Abnormality ) -Color (Janene-wound Skin Appearance) Rubor -Temperature (Janene-wound Skin No Abnormality Appearance) (Pt Warm) -Tenderness on Palpation (Janene-wound Yes Skin Appearance) -Ulcer Cleansing Wound Cleanser -Foul Odor after Cleansing Yes -Anesthetic Used 4% Lidocaine Solution WC - Nurse 2 - General Ulcer CM Notes Start: 03/01/20 10:03 Freq: Status: Active Protocol: Activity Type Activity Date Activity User E-Sign Co-Sign Detail Recorded Client Recorded Date Recorded By Document 03/18/20 10:37 KIRK [id number] 03/18/20 10:43 KIRK 03/18/20 10:37 Wound Center Nurse 2 [Procedure/Treatment] -Time 10:39 -Correct Patient Yes -Correct Side, Site, Position Yes -Correct Procedure Yes -Procedure Performed Yes -Type of Procedure Debridement -Clinical Debridement Muscle -Post Debridement Size (cm) - Length 2.5 -Post Debridement Size (cm) - Width 2.5 -Post Debridement Size (cm) - Depth 5.0 -Total Square Cm 6.25 -Wound/Ulcer Outcome Not Healed -Ulcer Cleansing Rinsed/ Irrigated with Saline -Foul Odor after Cleansing No -Bioengineered Tissue No -Bleeding Controlled with Pressure -Offloading No -Treatment Response Procedure Tolerated Well [See Physician Procedure note for Specifics] Pain Scale: 0-10 Numeric [Pain] -Is Patient Pain Free? Yes Debridement Note Post-Debridement Measurements/Treatment WC - Nurse 2 - General Ulcer CM Notes Start: 03/01/20 10:03 Freq: Status: Active Protocol: Activity Type Activity Date Activity User E-Sign Co-Sign Detail Recorded Client Recorded Date Recorded By Document 03/01/20 11:22 DV [id number] 03/01/20 11:24 DV Document 03/11/20 14:24 DL [id number] 03/11/20 14:33 DL Document 03/18/20 10:37 [id number] 03/18/20 10:43 03/01/20 03/11/20 03/18/20 11:22 14:24 10:37 Wound Center Nurse 2 #1- R GLUTEAL FOLD -Time 11:23 14:28 10:39 -Correct Patient Yes Yes Yes -Correct Side, Site, Position Yes Yes Yes -Correct Procedure Yes Yes Yes -Procedure Performed Yes Yes Yes -Type of Procedure Debridement Debridement Debridement -Clinical Debridement Subcutaneous Muscle Muscle -Post Debridement Size (cm) - Length 1.8 1.8 2.5 -Post Debridement Size (cm) - Width 2.0 2.8 2.5 -Post Debridement Size (cm) - Depth 6.5 6.3 5.0 -Total Square Cm 3.60 5.04 6.25 -Wound/Ulcer Outcome Not Healed Not Healed Not Healed -Ulcer Cleansing Rinsed/ Rinsed/ Rinsed/ Irrigated with Irrigated with Irrigated with Saline Saline Saline -Foul Odor after Cleansing No No No -Bioengineered Tissue No No No -Bleeding Controlled with Pressure Pressure Pressure -Offloading No No No -Treatment Response Procedure Procedure Procedure Tolerated Well Tolerated Well Tolerated Well Pain Scale: 0-10 Numeric Is Patient Pain Free? Yes Yes Yes Wound debrided: #1 Right ischial area. Laterality: Right Wound Grade/Stage: IV. Type of Debridement: Excisional debridement Anesthesia Used: 4% Lidocaine Solution Depth: Down to and including healthy tissue, in the subcutaneous layer, to muscle, to bone - bone is palpable but not exposed and not debrided. Percentage of wound debrided: 100 Instrument Used: 5mm curette Tissue Removed: subcutaneous tissue and muscle. Severity: Fat Layer Exposed - muscle is exposed. Bone is palpable but not exposed and not debrided. There is fungal rash in the periwound area. Amount of bleeding with debridement: Mild Bleeding Controlled with: Pressure Patient tolerated procedure well Assessment/Plan Active Problems Candidal skin infection (Acute) Chronic osteomyelitis of right pelvic region (Chronic) Right ischial pressure sore, stage 4 (Chronic) Debility (Chronic) Multiple sclerosis (Chronic) Assessment: 1. Necrotic right ischial pressure sore, Stage IV. 2. Osteomyelitis. 3. Multiple sclerosis. 4. s/p excision necrotic right ischial pressure sore, Stage IV, with partial ostectomy for osteomyelitis. Plan: Because of the fungal rash, will continue Diflucan 200 mg daily and nystatin powder to the affected areas. Will check LFT's. Will place the VAC on holiday and begin Dakin's dressing changes. The pressure sore opening is getting smaller but there is still enough of an opening for the wound care. The undermining is common in ischial pressure sores and not unexpected. She has completed her antibiotics (Cefdinir and Flagyl) for operative cultures that showed Coag negative Staph, Clostridium group, Prevotella oralis, and Bacteroides thetaiotamicron in the soft tissue and Staphylococcus capitis, Bacteroides thetaiotamicron, and Clostridium group in the bone. Recent wound culture from 12/2019 was negative. Discussed with the patient and her that the pressure sore is showing some improvement with granulation tissue. However with the persistent undermining (which is common in ischial pressure sores), the pressure sore will not heal without a myocutaneous flap. Initially will proceed with another excision of the pressure sore and partial ostectomy for osteomyelitis to make sure she is on the right antibiotics for the flap. The surgery will wait until the fungal rash has improved around the periwound. To help with positioning in bed at home, will order an overhead trapeze and home PT to help with muscle strength in her arms to see if she can help assist with the positioning a little bit. If not then she will stop. Patient was informed of the risks and complications of the procedure including alternatives to surgery. These were discussed with her personally. She voiced understanding and wishes to proceed. Prealbumin from 11/04/19 was 9.7. Encourage nutritional supplementation with protein to help the healing process. Followup 2 weeks.
== END 2020-03-28 23:59 ==
LOC: WC 10:00
PROVIDERS: Family Provider Family Medicine; PCP Family Medicine; Referring Provider Nurse Practitioner Family; Visit Provider Nurse Practitioner Family
DX: L89.314 Pressure ulcer of right buttock, stage 4 (principal); M86.651 Other chronic osteomyelitis, right thigh; R60.0 Localized edema; G35 Multiple sclerosis; Z85.3 Personal history of malignant neoplasm of breast; B37.2 Candidiasis of skin and nail; R53.81 Other malaise
CPT/HCPCS: 11042; 11043; 80053; 97605

== ENCOUNTER 2020-04-15 10:00 | Outpatient (RCR) | payer MEDICARE, SELFPAY ==
[2020-03-29 00:11] VITALS: BP 129/79; PULSE 116; RESP 20; TEMP 36.9
[2020-04-01 10:12] VITALS: BP 125/80; PULSE 90; RESP 18; TEMP 35.4; BMI 31.5
--- NOTE | 2020-04-01 14:47 | PN.PCM_ITS ---
(1) Right ischial pressure sore, stage 4 Status: Chronic Current Visit: Yes Code(s): L89.314 - Pressure ulcer of right buttock, stage 4 (2) Decubitus ulcer of coccygeal region, stage 2 Status: Acute Current Visit: Yes Code(s): L89.152 - Pressure ulcer of sacral region, stage 2 (3) Candidal skin infection Status: Chronic Current Visit: Yes Code(s): B37.2 - Candidiasis of skin and nail (4) Psoriasis Status: Chronic Current Visit: Yes Code(s): L40.9 - Psoriasis, unspecified (5) Chronic osteomyelitis of right pelvic region Status: Chronic Current Visit: Yes Code(s): M86.651 - Other chronic osteomyelitis, right thigh (6) Debility Status: Chronic Current Visit: Yes Code(s): R53.81 - Other malaise (7) Multiple sclerosis Status: Chronic Current Visit: Yes Code(s): G35 - Multiple sclerosis Type of Wound Date of Service: 04/01/20 Chief Complaint: Right ischial pressure sore, Stage IV. History of Wound: Surgery 11/03/19 - Excision necrotic right ischial pressure sore, Stage IV, with partial ostectomy for osteomyelitis. Wound care - Will discontinue the VAC for now due to the periwound. Daily and PRN Dakin's moistened gauze topped with dry gauze to the right ischial ulcer. Moistened silver to the ulcer in the intergluteal fold. Operative culture - Coag negative Staph, Clostridium group, Prevotella oralis, and Bacteroides thetaiotamicron in the soft tissue and Staphylococcus capitis, Bacteroides thetaiotamicron, and Clostridium group in the bone. She was discharged on Ceftriaxone and Flagyl. The Ceftriaxone was changed to Cefdinir because she developed a clot in the PICC line and it was pulled. She has finished the antibiotics. With the recent periwound fungal rash, she was started on daily Diflucan which she will finish this week, but she will continue the weekly diflucan prescribed by her PCP. She has a history of psoriasis and some of the vanessa wound has circular lesions with dry patches, which resemble psoriasis. She continues to have yeast in the groin creases. Pathology - negative for osteomyelitis. CT Pelvis from 11/03/19 showed There is a 2.6 cm x 3.5 cm soft tissue defect in the medial proximal right. buttock with the surrounding soft tissue swelling and edema. The inflammatory c hanges extend into the right inferior pubic ramus with the findings suggestive of a possible bony destruction secondary to osteomyelitis. Dense calcifications are seen in the soft tissues overlying both buttocks and the left side of the sacrum. This also evidence of a 3.2. cm x 4.1 cm soft tissue density involving the tip of the sacrum and coccyx. There is also evidence of multiple calcific densities and ossifications overlying the right greater trochanter. There is also evidence of soft tissue swelling at that site. Prealbumin from 11/04/19 was 9.7. Encourage nutritional supplementation with protein to help the healing process. Today she denies fever. Her appetite is ok. Progress of Wound: Right sacral ulcer is stable. Periwound is red, does not look fungal. She has a history of psoriasis, so suspect this may be a cause due to the circular areas that have dry flaky skin. She does have yeast bilateral groin folds. Coccyx ulcer stage II in the intergluteal cleft. - Physical Exam Vital Signs Temp Pulse Resp BP 95.8 F L 90 18 125/80 H 04/01/20 10:12 04/01/20 10:12 04/01/20 10:12 04/01/20 10:12 General: Alert, Oriented x3, Cooperative HEENT: Atraumatic Oral: Moist Mucosa Lungs: Normal air movement Cardiovascular: Regular rate Abdomen: Soft, Obese Extremities: Capillary Refill Less than 3 Seconds Skin: Ulcer/ Wound - Sacral ulcer, stage IV with tunneling, unable to palpate bone. New ulcer in intergluteal fold. Wound Measurements and Assessment WC - Nurse 1 - General Ulcer Measurement Start: 04/01/20 10:12 Freq: Status: Active Protocol: Activity Type Activity Date Activity User E-Sign Co-Sign Detail Recorded Client Recorded Date Recorded By Document 04/01/20 10:12 MW [id number] 04/01/20 10:18 MW 04/01/20 10:12 Wound Center Nurse 1 [Ulcer Assessment] #1- R GLUTEAL FOLD -Combined with other wound No -Current Size (cm) - Length 2.4 -Current Size (cm) - Width 1.7 -Current Size (cm) - Depth 4.4 -Total Square Cm 4.08 -Photo Taken No -Epithelialization None Present -Tunneling No -Undermining/Tunneling No -Circular Undermining No -Exudate Amt Medium -Exudate Type Serosanguineous -Wound Margin Indistinct, Non -Visible -Granulation Amt Small (1-33%) -Granulation Quality [place] -Slough/Fibrin Yes -Necrosis Amt Medium (34-66%) -Necrotic Tissue Type Adherent Slough -Structure Exposed N/A -Texture (Vanessa-wound Skin Appearance) Assessed, Excoriation, Scarring -Moisture (Vanessa-wound Skin Appearance Assessed ) -Color (Vanessa-wound Skin Appearance) Assessed,Rubor -Temperature (Vanessa-wound Skin No Abnormality Appearance) (Pt Warm) -Ulcer Cleansing soap and water -Foul Odor after Cleansing No -Anesthetic Used 4% Lidocaine Solution [Edema Assessment] -Lower Limb Edema Present No WC - Nurse 2 - General Ulcer CM Notes Start: 04/01/20 10:12 Freq: Status: Active Protocol: Activity Type Activity Date Activity User E-Sign Co-Sign Detail Recorded Client Recorded Date Recorded By Document 04/01/20 10:24 KIRK [id number] 04/01/20 10:35 KIRK 04/01/20 10:24 Wound Center Nurse 2 [Procedure/Treatment] 3-coccyx/intergluteal fold -Time 10:33 -Correct Patient Yes -Correct Side, Site, Position Yes -Correct Procedure Yes -Procedure Performed Yes -Type of Procedure Debridement -Clinical Debridement Subcutaneous -Post Debridement Size (cm) - Length 0.9 -Post Debridement Size (cm) - Width 0.5 -Post Debridement Size (cm) - Depth 0.2 -Total Square Cm 0.45 -Wound/Ulcer Outcome Not Healed -Ulcer Cleansing Rinsed/ Irrigated with Saline -Foul Odor after Cleansing No -Bioengineered Tissue No -Bleeding Controlled with Pressure -Offloading No -Treatment Response Procedure Tolerated Well #1- R GLUTEAL FOLD/ischial -Time 10:30 -Correct Patient Yes -Correct Side, Site, Position Yes -Correct Procedure Yes -Procedure Performed Yes -Type of Procedure Debridement -Clinical Debridement Muscle -Post Debridement Size (cm) - Length 2.5 -Post Debridement Size (cm) - Width 2.0 -Post Debridement Size (cm) - Depth 5.5 -Total Square Cm 5.00 -Wound/Ulcer Outcome Not Healed -Ulcer Cleansing Rinsed/ Irrigated with Saline -Foul Odor after Cleansing No -Bioengineered Tissue No -Bleeding Controlled with Pressure -Offloading No -Treatment Response Procedure Tolerated Well [See Physician Procedure note for Specifics] Pain Scale: 0-10 Numeric [Pain] -Is Patient Pain Free? Yes Musculoskeletal: No Tenderness to Palpation of Joints or Extremities Neurological: Neuro grossly intact Psych/Mental Status: Normal Affect, Appropriate Debridement Note Post-Debridement Measurements/Treatment WC - Nurse 2 - General Ulcer CM Notes Start: 04/01/20 10:12 Freq: Status: Active Protocol: Activity Type Activity Date Activity User E-Sign Co-Sign Detail Recorded Client Recorded Date Recorded By Document 04/01/20 10:24 KIRK [id number] 04/01/20 10:35 KIKR 04/01/20 10:24 Wound Center Nurse 2 3-coccyx -Time 10:33 -Correct Patient Yes -Correct Side, Site, Position Yes -Correct Procedure Yes -Procedure Performed Yes -Type of Procedure Debridement -Clinical Debridement Subcutaneous -Post Debridement Size (cm) - Length 0.9 -Post Debridement Size (cm) - Width 0.5 -Post Debridement Size (cm) - Depth 0.2 -Total Square Cm 0.45 -Wound/Ulcer Outcome Not Healed -Ulcer Cleansing Rinsed/ Irrigated with Saline -Foul Odor after Cleansing No -Bioengineered Tissue No -Bleeding Controlled with Pressure -Offloading No -Treatment Response Procedure Tolerated Well #1- R GLUTEAL FOLD -Time 10:30 -Correct Patient Yes -Correct Side, Site, Position Yes -Correct Procedure Yes -Procedure Performed Yes -Type of Procedure Debridement -Clinical Debridement Muscle -Post Debridement Size (cm) - Length 2.5 -Post Debridement Size (cm) - Width 2.0 -Post Debridement Size (cm) - Depth 5.5 -Total Square Cm 5.00 -Wound/Ulcer Outcome Not Healed -Ulcer Cleansing Rinsed/ Irrigated with Saline -Foul Odor after Cleansing No -Bioengineered Tissue No -Bleeding Controlled with Pressure -Offloading No -Treatment Response Procedure Tolerated Well Pain Scale: 0-10 Numeric Is Patient Pain Free? Yes Wound debrided: Ischial ulcer Laterality: Right Wound Grade/Stage: Stage IV Type of Debridement: Excisional debridement Anesthesia Used: 4% Lidocaine Solution Depth: Down to and including healthy tissue, in the subcutaneous layer, to muscle Percentage of wound debrided: 100 Instrument Used: 5mm curette Tissue Removed: Subcutaneous tissue and slough into the muscle Severity: Fat Layer Exposed Amount of bleeding with debridement: Mild Bleeding Controlled with: Pressure Patient tolerated procedure well - Additional Wound Wound debrided: Coccyx/intergluteal fold Laterality: Right Wound Grade/Stage: Stage 2 Type of Debridement: Excisional debridement Anesthesia Used: 4% Lidocaine Solution Depth: Down to and including healthy tissue, in the subcutaneous layer Percentage of wound debrided: 100 Instrument Used: 3mm curette Tissue Removed: Subcutaneous tissue and slough Severity: Limited To Skin Breakdown Amount of bleeding with debridement: Mild Bleeding Controlled with: Pressure Patient tolerated procedure: Patient tolerated procedure well Assessment/Plan Active Problems Candidal skin infection (Chronic) Decubitus ulcer of coccygeal region, stage 2 (Acute) Chronic osteomyelitis of right pelvic region (Chronic) Right ischial pressure sore, stage 4 (Chronic) Debility (Chronic) Multiple sclerosis (Chronic) Psoriasis (Chronic) Assessment: 1. Necrotic right ischial pressure sore, Stage IV. 2. Osteomyelitis. 3. Multiple sclerosis. 4. s/p excision necrotic right ischial pressure sore, Stage IV, with partial ostectomy for osteomyelitis. Plan: She will finish the daily Diflucan 200 mg daily this week and then will go back to the weekly dose she had been previously prescribed. Will have them place nystatin powder to the folds of the bilateral groin areas. With her history of psoriasis and the periwound with the circular dry patches, I suspect this may be caused by psoriasis, they will use the triamcinolone cream (which they have previously been prescribed) on the vanessa wound area with the dry patches. LFT from 03/18/20: Total Bili 0.30, AST 14, ALT 21, Alk phos 102. Wound Care - The right ischial ulcer we will discontinue the VAC due to her vanessa wound and continue daily and prn Dakin's dressing changes. The coccyx/inter gluteal fold will place moistened Aquacel-Ag daily and prn. She has completed her antibiotics (Cefdinir and Flagyl) for operative cultures that showed Coag negative Staph, Clostridium group, Prevotella oralis, and Bacteroides thetaiotamicron in the soft tissue and Staphylococcus capitis, Bacteroides thetaiotamicron, and Clostridium group in the bone. Recent wound culture from 12/2019 was negative. Discussed with the patient and her that the pressure sore is showing some improvement with granulation tissue. However with the persistent undermining (which is common in ischial pressure sores), the pressure sore will not heal without a myocutaneous flap. Initially will proceed with another excision of the pressure sore and partial ostectomy for osteomyelitis to make sure she is on the right antibiotics for the flap. The surgery will wait until the fungal rash has improved around the periwound. To help with positioning in bed at home, will order an overhead trapeze and home PT to help with muscle strength in her arms to see if she can help assist with the positioning a little bit. If not then she will stop. Patient was informed of the risks and complications of the procedure including alternatives to surgery. These were discussed with her personally. She voiced understanding and wishes to proceed. Prealbumin from 11/04/19 was 9.7. Encourage nutritional supplementation with protein to help the healing process. Followup 2 weeks. [id number]: [id number] Neeta musc/fascia 20 sq cm/< - right ischial ulcer Multi Select Codes - Integumentary Integumentary CPT Codes: 42840 Neeta subq tissue 20 sq cm/< - Coccyx ulcer/intergluteal fold
[2020-04-15 10:10] VITALS: BP 138/96; PULSE 92; RESP 16; TEMP 36.2; BMI 31.5
--- NOTE | 2020-04-15 17:45 | PCM.WC.PN ---
Type of Wound Date of Service: 04/15/20 Chief Complaint: Right ischial pressure sore, Stage IV. History of Wound: Surgery 11/03/19 - Excision necrotic right ischial pressure sore, Stage IV, with partial ostectomy for osteomyelitis. Wound care - Dakin's. Operative culture - Coag negative Staph, Clostridium group, Prevotella oralis, and Bacteroides thetaiotamicron in the soft tissue and Staphylococcus capitis, Bacteroides thetaiotamicron, and Clostridium group in the bone. She was discharged on Ceftriaxone and Flagyl. The Ceftriaxone was changed to Cefdinir because she developed a clot in the PICC line and it was pulled. She has finished the antibiotics. With the recent periwound fungal rash, she was started on Diflucan which has improved. Pathology - negative for osteomyelitis. CT Pelvis from 11/03/19 showed There is a 2.6 cm x 3.5 cm soft tissue defect in the medial proximal right. buttock with the surrounding soft tissue swelling and edema. The inflammatory changes extend into the right inferior pubic ramus with the findings suggestive of a possible bony destruction secondary to osteomyelitis. Dense calcifications are seen in the soft tissues overlying both buttocks and the left side of the sacrum. There is also evidence of a 3.2 cm x 4.1 cm soft tissue density involving the tip of the sacrum and coccyx. There is also evidence of multiple calcific densities and ossifications overlying the right greater trochanter. There is also evidence of soft tissue swelling at that site. Prealbumin from 11/04/19 was 9.7. Encourage nutritional supplementation with protein to help the healing process. Today she denies fever. Her appetite is ok. She had developed a coccyx abrasion that was treated with Silver dressing and it has healed. Progress of Wound: Improved with the fungal area in the periwound area also improved. - Physical Exam Vital Signs Temp Pulse Resp BP 97.1 F L 92 16 138/96 H 04/15/20 10:10 04/15/20 10:10 04/15/20 10:10 04/15/20 10:10 Wound Measurements and Assessment WC - Nurse 1 - General Ulcer Measurement Start: 04/01/20 10:12 Freq: Status: Active Protocol: Activity Type Activity Date Activity User E-Sign Co-Sign Detail Recorded Client Recorded Date Recorded By Document 04/15/20 10:10 BMF [id number] 04/15/20 10:20 [facility] 04/15/20 10:10 Wound Center Nurse 1 [Ulcer Assessment] 3-coccyx -Combined with other wound No -Current Size (cm) - Length 0.1 -Current Size (cm) - Width 0.1 -Current Size (cm) - Depth 0.1 -Total Square Cm 0.01 -Epithelialization Large 67-100% #1- R GLUTEAL FOLD -Combined with other wound No -Current Size (cm) - Length 1.8 -Current Size (cm) - Width 2.5 -Current Size (cm) - Depth 2.8 -Total Square Cm 4.50 -Photo Taken No -Epithelialization None Present -Tunneling No -Undermining/Tunneling Yes -Undermining/Tunneling Starts (O' 6 clock) -Undermining/Tunneling Ends (O'clock) 11 -Maximum Distance (cm) 5 -Circular Undermining No -Exudate Amt Small -Exudate Type Serosanguineous -Wound Margin Distinct, Outline Attached -Granulation Amt Large (67-100%) -Granulation Quality Red -Slough/Fibrin Yes -Necrosis Amt Small (1-33%) -Necrotic Tissue Type Adherent Slough -Structure Exposed Bone -Texture (Vanessa-wound Skin Appearance) Assessed, Scarring -Moisture (Vanessa-wound Skin Appearance Assessed ) -Color (Vanessa-wound Skin Appearance) Assessed -Temperature (Vanessa-wound Skin No Abnormality Appearance) (Pt Warm) -Tenderness on Palpation (Vanessa-wound No Skin Appearance) -Ulcer Cleansing SOAPY WATER -Foul Odor after Cleansing No -Anesthetic Used 4% Lidocaine Solution WC - Nurse 2 - General Ulcer CM Notes Start: 04/01/20 10:12 Freq: Status: Active Protocol: Activity Type Activity Date Activity User E-Sign Co-Sign Detail Recorded Client Recorded Date Recorded By Document 04/15/20 10:49 [id number] 04/15/20 10:50 04/15/20 10:49 Wound Center Nurse 2 [Procedure/Treatment] 3-coccyx -Correct Patient No -Correct Side, Site, Position No -Correct Procedure No -Procedure Performed No -Post Debridement Size (cm) - Length 0 -Post Debridement Size (cm) - Width 0 -Post Debridement Size (cm) - Depth 0 -Total Square Cm 0 -Wound/Ulcer Outcome Healed- Epithelialized #1- R GLUTEAL FOLD -Time 10:50 -Correct Patient Yes -Correct Side, Site, Position Yes -Correct Procedure Yes -Procedure Performed Yes -Type of Procedure Debridement -Clinical Debridement Muscle -Post Debridement Size (cm) - Length 2.2 -Post Debridement Size (cm) - Width 3.0 -Post Debridement Size (cm) - Depth 5.5 -Total Square Cm 6.60 -Wound/Ulcer Outcome Not Healed -Ulcer Cleansing Rinsed/ Irrigated with Saline -Foul Odor after Cleansing No -Bioengineered Tissue No -Bleeding Controlled with Pressure -Offloading No -Treatment Response Procedure Tolerated Well [See Physician Procedure note for Specifics] Pain Scale: 0-10 Numeric [Pain] -Is Patient Pain Free? Yes Debridement Note Post-Debridement Measurements/Treatment WC - Nurse 2 - General Ulcer CM Notes Start: 04/01/20 10:12 Freq: Status: Active Protocol: Activity Type Activity Date Activity User E-Sign Co-Sign Detail Recorded Client Recorded Date Recorded By Document 04/01/20 10:24 [id number] 04/01/20 10:35 Document 04/15/20 10:49 [id number] 04/15/20 10:50 04/01/20 04/15/20 10:24 10:49 Wound Center Nurse 2 3-coccyx -Time 10:33 -Correct Patient Yes No -Correct Side, Site, Position Yes No -Correct Procedure Yes No -Procedure Performed Yes No -Type of Procedure Debridement -Clinical Debridement Subcutaneous -Post Debridement Size (cm) - Length 0.9 0 -Post Debridement Size (cm) - Width 0.5 0 -Post Debridement Size (cm) - Depth 0.2 0 -Total Square Cm 0.45 0 -Wound/Ulcer Outcome Not Healed Healed- Epithelialized -Ulcer Cleansing Rinsed/ Irrigated with Saline -Foul Odor after Cleansing No -Bioengineered Tissue No -Bleeding Controlled with Pressure -Offloading No -Treatment Response Procedure Tolerated Well #1- R GLUTEAL FOLD -Time 10:30 10:50 -Correct Patient Yes Yes -Correct Side, Site, Position Yes Yes -Correct Procedure Yes Yes -Procedure Performed Yes Yes -Type of Procedure Debridement Debridement -Clinical Debridement Muscle Muscle -Post Debridement Size (cm) - Length 2.5 2.2 -Post Debridement Size (cm) - Width 2.0 3.0 -Post Debridement Size (cm) - Depth 5.5 5.5 -Total Square Cm 5.00 6.60 -Wound/Ulcer Outcome Not Healed Not Healed -Ulcer Cleansing Rinsed/ Rinsed/ Irrigated with Irrigated with Saline Saline -Foul Odor after Cleansing No No -Bioengineered Tissue No No -Bleeding Controlled with Pressure Pressure -Offloading No No -Treatment Response Procedure Procedure Tolerated Well Tolerated Well Pain Scale: 0-10 Numeric Is Patient Pain Free? Yes Yes Wound debrided: #1 Right ischial area. Laterality: Right Wound Grade/Stage: IV. Type of Debridement: Excisional debridement Anesthesia Used: 4% Lidocaine Solution Depth: Down to and including healthy tissue, in the subcutaneous layer, to muscle, to bone - bone is palpable but not exposed and not debrided. Percentage of wound debrided: 100 Instrument Used: 7mm curette Tissue Removed: subcutaneous tissue and muscle. Severity: Fat Layer Exposed - muscle is exposed. bone is palpable but not exposed and not debrided. Amount of bleeding with debridement: Mild Bleeding Controlled with: Pressure Patient tolerated procedure well Assessment/Plan Active Problems Candidal skin infection (Chronic) Decubitus ulcer of coccygeal region, stage 2 (Acute) Chronic osteomyelitis of right pelvic region (Chronic) Right ischial pressure sore, stage 4 (Chronic) Debility (Chronic) Multiple sclerosis (Chronic) Psoriasis (Chronic) Assessment: 1. Necrotic right ischial pressure sore, Stage IV. 2. Osteomyelitis. 3. Multiple sclerosis. 4. s/p excision necrotic right ischial pressure sore, Stage IV, with partial ostectomy for osteomyelitis. Plan: Continue weekly dose of Diflucan as previously prescribed. Will have them place nystatin powder to the folds of the bilateral groin areas. With her history of psoriasis and the periwound with the circular dry patches, I suspect this may be caused by psoriasis, they will use the triamcinolone cream (which they have previously been prescribed) on the vanessa wound area with the dry patches. The periwound area has improved greatly. LFT from 03/18/20: Total Bili 0.30, AST 14, ALT 21, Alk phos 102. Continue Dakin's dressing changes to the right ischial pressure sore. The coccyx/inter gluteal fold which had ulcerated last week and was treated with Silver dressing and is now healed. She has completed her antibiotics (Cefdinir and Flagyl) for operative cultures that showed Coag negative Staph, Clostridium group, Prevotella oralis, and Bacteroides thetaiotamicron in the soft tissue and Staphylococcus capitis, Bacteroides thetaiotamicron, and Clostridium group in the bone. Recent wound culture from 12/2019 was negative. Discussed with the patient and her that the pressure sore is showing some improvement with granulation tissue. However with the persistent undermining (which is common in ischial pressure sores), the pressure sore will not heal without a myocutaneous flap. Initially will proceed with another excision of the pressure sore and partial ostectomy for osteomyelitis to make sure she is on the right antibiotics for the flap. The surgery can now proceed because the periwound rash has improved greatly. To help with positioning in bed at home, will order an overhead trapeze and home PT to help with muscle strength in her arms to see if she can help assist with the positioning a little bit. If not then she will stop. Patient was informed of the risks and complications of the procedure including alternatives to surgery. These were discussed with her personally. She voiced understanding and wishes to proceed. Will proceed with the excision first to make sure she is on the right antibiotic at the time of the flap. That is done under general anesthesia with a surgical observation overnight stay in the hospital. For the flap surgery, she will be an inpatient for a few days. Depending on the antibiotics needed, a PICC line may be needed preop for IV antibiotics, in which case she would be admitted day before the flap surgery. Prealbumin from 11/04/19 was 9.7. Encourage nutritional supplementation with protein to help the healing process. Followup 2 weeks. [id number]: [id number] Neeta musc/fascia 20 sq cm/< - ICD-10 - L89.314, I96, M86.651, G35
== END 2020-04-28 23:59 ==
LOC: WC 10:00
PROVIDERS: Family Provider Family Medicine; PCP Family Medicine; Referring Provider Nurse Practitioner Family; Visit Provider Nurse Practitioner Family
DX: L89.314 Pressure ulcer of right buttock, stage 4 (principal); M86.651 Other chronic osteomyelitis, right thigh; R60.0 Localized edema; G35 Multiple sclerosis; Z85.3 Personal history of malignant neoplasm of breast; B37.2 Candidiasis of skin and nail; R53.81 Other malaise
CPT/HCPCS: 11042; 11043

== ENCOUNTER 2020-04-30 10:27 | Observation (INO) | payer MEDICARE, SELFPAY ==
--- NOTE | 2020-04-29 23:55 | PCM.HP.BLA ---
History and Physical Date of Admission: 04/30/20 HISTORY OF PRESENT ILLNESS The patient is a 65 year old F with a history of MS presents with a worsening right ischial pressure sore with increasing undermining. She has completed her antibiotics (Cefdinir and Flagyl) for operative cultures from 11/03/19 that showed Coag negative Staph, Clostridium group, Prevotella oralis, and Bacteroides thetaiotamicron in the soft tissue and Staphylococcus capitis, Bacteroides thetaiotamicron, and Clostridium group in the bone. Recent wound culture from 12/2019 was negative. She presents today for further operative excision with partial ostectomy for osteomyelitis. I want to make sure she is on the right antibiotic before proceeding with wound closure with a myocutaneous flap. She is currently using Dakin's dressing changes to help control a periwound rash. PAST MEDICAL HISTORY Chronic osteomyelitis of right pelvic region Right ischial pressure sore, stage 4 Multiple sclerosis PAST SURGICAL HISTORY Excision necrotic right ischial pressure sore, Stage IV, with partial ostectomy for osteomyelitis - 11/03/19 ALLERGIES bacitracin [From Neosporin ([id number])] neomycin [From Neosporin ([id number])] ondansetron [From Zofran] polymyxin B [From Neosporin ([id number])] Sulfa (Sulfonamide Antibiotics) MEDICATIONS Tylenol, Eliquis, Vitamin C, Baclofen, Vitamin D3, Cranberry, Diflucan, Letrozole, Lopressor, Macrodantin, Ditropan, Vitamin E. SOCIAL HISTORY Smoking Status: Never smoker FAMILY HISTORY Maternal - Cancer Paternal - Heart Disease REVIEW OF SYSTEMS Comment: Constitutional: Denies: Chills, Fever, Weight Change. HEENT: Denies: Head Aches, Sinus Congestion, Sinus Drainage. Cardiovascular: Denies: Chest Pain, Palpitations. Respiratory: Denies: Cough, Shortness of breath at rest, Sputum production. Gastrointestinal: Denies: Abdominal Pain, Nausea, Vomiting. Genitourinary: Denies: Dysuria. Musculoskeletal: Denies: Joint Pain, Joint Tenderness. Skin: Reports: Wounds - For the last 2 to 3 weeks. Denies: Rash. Neurological: Denies: Numbness, Tingling, Focal weakness. Psychiatric: Denies: Anxiety, Depression. Hematologic/ Lymphatic: Denies: Easy Bruising, Easy Bleeding PHYSICAL EXAMINATION Vitals/I&O's: General: Alert, Oriented x3, Cooperative, No apparent distress HEENT: PERRLA, EOMI. Oral: Moist Mucosa Neck: Supple, nontender. No cervical adenopathy. Lungs: Clear to auscultation. Cardiovascular: Regular rate, Regular Rhythm. Abdomen: Soft, Non-Distended. Extremities: No edema. Skin: On the right ischial area is a pressure sore, Stage IV. Measures 2 x 3 x 5.5 cm. Some granulation tissue seen. Bone is palpable but not exposed. Neurological: - CN II - XII grossly intact. Psych/Mental Status: Normal Affect, Appropriate ASSESSMENT 1. Right ischial pressure sore, Stage IV. 2. Osteomyelitis. 3. Multiple sclerosis. PLAN Continue Dakin's dressing changes to the right ischial pressure sore. She has completed her antibiotics (Cefdinir and Flagyl) for operative cultures from 11/03/19 that showed Coag negative Staph, Clostridium group, Prevotella oralis, and Bacteroides thetaiotamicron in the soft tissue and Staphylococcus capitis, Bacteroides thetaiotamicron, and Clostridium group in the bone. Recent wound culture from 12/2019 was negative. Discussed with the patient and her that the pressure sore is showing some improvement with granulation tissue. However with the persistent undermining (which is common in ischial pressure sores), the pressure sore will not heal without a myocutaneous flap. Initially will proceed with another excision of the pressure sore and partial ostectomy for osteomyelitis to make sure she is on the right antibiotics for the flap. The surgery can now proceed because the periwound rash has improved greatly. Will proceed with the excision first to make sure she is on the right antibiotic at the time of the flap. That is done under general anesthesia with a surgical observation overnight stay in the hospital. The VAC will be placed the next day. For the flap surgery, she will be an inpatient for a few days. Depending on the antibiotics needed, a PICC line may be needed preop for IV antibiotics, in which case she would be admitted day before the flap surgery. Prealbumin from 11/04/19 was 9.7. Encourage nutritional supplementation with protein to help the healing process. The pressure sore is developing increasing undermining making operative therapy for wound closure a more urgent option because of the risk of worsening symptoms especially concerning the underlying bone and osteomyelitis. Patient was informed of the risks and complications of the procedure including alternatives to surgery. These were discussed with the patient personally. Patient voices understanding and wishes to proceed. Procedure Criteria Procedure Type: Essential Procedure Essential: Yes Criteria Statement: On 02/13/2020 the [facility] ([facility]) Public Order signed by [facility] Director Kenyatta Sterling M.D., regarding the Management of Non-Essential Surgeries and Procedures for the purpose of preserving Personal Protective Equipment (PPE) and critical hospital capacity and resources within [place] went into effect as of 02/14/2020 at 5:00PM. According to the [facility] Public Order: This action will remain in full force and effect until the State of Emergency declared by the Governor no longer exists or the Director of the [facility] rescinds or modifies this Order. This [facility] order stated all non-essential or elective surgeries and procedures that utilize PPE should be delayed unless there is undue risk to the current or future health of a patient. After reviewing the aforementioned [facility] Public Order and the patient's clinical case, I have determined that the scheduled procedure meets the criteria to go forward. Risk to Patient if Procedure Delayed: Risk of rapidly worsening to severe symptoms if delayed - Patient has a worsening right ischial pressure sore with increased undermining and risk of worsening infection in the underlying bone with osteomyelitis.
[2020-04-30] VITALS (15 sets, daily range): BP systolic 90–127; BP diastolic 51–80; PULSE 72–92; RESP 12–18; TEMP 35.9–37.2; O2SAT 94–100; BMI 29.7; BMI 29.8
--- NOTE | 2020-04-30 | PRES_PTH ---
PATIENT: NAY GREENE LOC: MS3 U#:[id number] AGE/SX: 65/F ROOM: KY310 RE04/30/[address]: Dr. Jose E Dougherty MD : 1955 BED: 1 DIS: 05/02/2020 SPEC #: [id number] RECD: 04/30/20 12:05 STATUS: HETAL REAquilino #: [id number] DEEJAY: 04/30/20 00:[address]: Jose E Dougherty DEPT: SURGICAL PATHOLOGY RECD BY: Malcolm Lujan ENTERED: 04/30/20 12:06 SP TYPE: PRESS SORE SUNNY DR: Dr. Jovon Levy MD Tissues: A - Ischium, NOS B - Ischium, NOS Procedures: Decalcification bone/plaque Surgery Specimen Level IV HEADER OPERATION: Excision pressure sore, partial ostectomy, ischial PRE-OP DIAGNOSIS: Right ischial pressure sore TISSUE SUBMITTED: A - Bone right ischial pressure sore, B - Tissue right ischial pressure sore MICROSCOPIC DIAGNOSIS A. Bone of right ischial region, biopsy: Chronic reparative and reactive change. No evidence of acute osteomyelitis. B. Skin and soft tissue of right ischial region, excision: Ulceration with associated acute and chronic inflammation and granulation. AM:nano 05/03/20 MICROSCOPIC DESCRIPTION Slides are reviewed. GROSS DESCRIPTION A - Received in fixative is one container labeled with the patient's name and designated bone right ischial pressure sore. The specimen consists of a piece of bone measuring 3.5 x 2 x 0.5 cm. The entire specimen is submitted in two cassettes after decalcification. B - Received in fixative is one container labeled with the patient's name and designated tissue right ischial pressure sore. The specimen consists of a ring-shaped piece of livingston-white skin with underlying tissue measuring 6.5 x 2 cm and up to 3 cm in thickness. No mass lesion is identified. Eyeglass Lens Cutter sections are submitted in two cassettes. / SJ:nano 04/30/20 TC:2 CPT: 94646 x2, 65226
[2020-04-30 08:20] LABS: Absolute Lymphocyte Count 1.63 X10^3/uL (0.83-4.51); Absolute Neutrophil Count 8.8 X10^3/uL (2.0-7.7); Basophil# 0.03 X10^3/uL; Basophil% 0.3 % (0-1); Eosinophil# 0.06 X10^3/uL; Eosinophils% 0.5 % (0-5); Hematocrit 43.8 % (37-47); Hemoglobin 14.1 g/dL (12.0-15.0); Lymphocyte # 1.63 X10^3/ul (4.0); Lymphocyte % 14.8 % (19-41); Mean Corp Hgb Conc 32.2 g/dL (32-36); Mean Corpuscular Hgb 27.3 pg (27.0-32.0); Mean Corpuscular Volume 84.7 fL (81-99); Mean Platelet Vol. 9.6 fl (6.2-12.0); Monocyte# 0.38 X10^3/uL; Monocyte% 3.5 % (0-10); NRBC Flagged by Analyzer 0 % (0-5); Neutrophil # 8.82 X10^3/uL (2.7-7.7); Neutrophil % 80.4 % (47-70); Platelet Count 327 K/mm3 (150-450); RBC Distribution Width CV 15.4 % (11.6-14.6); Red Blood Count 5.17 M/mm3 (4.2-5.4)
[2020-04-30 08:30] LABS: Prothrombin Time (Protime)PT. 13.1 SECONDS (11.7-14.9)
[2020-04-30] MEDS: Lactated Ringers 1,000 ML 100 ML IV ×2 (09:00→12:11)
--- NOTE | 2020-04-30 10:22 | PCM.OPRPT ---
Report of Operation Date of Procedure: 04/30/20 Pre-Operative Diagnosis: 1. Right ischial pressure sore, Stage IV. 2. Osteomyelitis. 3. Multiple sclerosis. Post-Operative Diagnosis: Same. Surgery/Procedure Performed:: Excision right ischial pressure sore, Stage IV, with partial ostectomy for osteomyelitis. Description of Surgical Findings:: The patient is a 65 year old F with a history of MS presents with a worsening right ischial pressure sore with increasing undermining. She has completed her antibiotics (Cefdinir and Flagyl) for operative cultures from 11/03/19 that showed Coag negative Staph, Clostridium group, Prevotella oralis, and Bacteroides thetaiotamicron in the soft tissue and Staphylococcus capitis, Bacteroides thetaiotamicron, and Clostridium group in the bone. Recent wound culture from 12/2019 was negative. She presents today for further operative excision with partial ostectomy for osteomyelitis. I want to make sure she is on the right antibiotic before proceeding with wound closure with a myocutaneous flap. She is currently using Dakin's dressing changes to help control a periwound rash. Patient was informed of the risks and complications of the procedure including alternatives to surgery. These were discussed with the patient personally. Patient voices understanding and wishes to proceed. Size of defect right ischial area - 7 x 4 x 4 cm. 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 Right ischial pressure sore soft tissue to Pathology and Microbiology. 2. Right ischial pressure sore bone to Pathology and Microbiology. Drains: None. Estimated Blood Loss (mL): 50 ml. Description of Procedure: Patient was taken to OR in supine position and placed under general anesthesia. She was then placed in the prone position and her right ischial area was prepped and draped in the usual fashion. SCD's were placed for DVT prophylaxis. Perioperative antibiotics were given intravenously. I excised the pressure sore right ischial area in a circular fashion down through the subcutaneous tissue and muscle which was indurated with some fat necrosis. No pus was seen. The indurated ulcer and abnormal bursal scar tissue were excised down to the bone. I suspect osteomyelitis. The ischial bone was irregular in shape which can be consistent with osteomyelitis. A partial ostectomy was performed with an osteotome and a mallet in a tangential direction. The bony edges were smoothed out with a rasp. I also used rongeurs. After the partial ostectomy, the bone showed good bleeding. Hemostasis was obtained with electrocautery. Bone wax was also used. The wound was irrigated with saline. The size of the defect after excision was 7 x 4 x 4 cm. The wound was packed with Mepitel nonadherent dressing followed by Kerlix gauze and Betadine followed by dry Kerlix gauze and ABD pads compression dressing. Half the soft tissue and half the bone was sent to Pathology for analysis to rule out carcinoma and to evaluate for osteomyelitis. Half the soft tissue and half the bone was sent to Microbiology for culture. A positive culture may necessitate antibiotic modification. She is being treated perioperatively with Unasyn. Patient tolerated the procedure well and will be sent to PACU in satisfactory condition. She will be sent back upstairs for continued postop care. Tomorrow they will place the VAC. After the operative cultures have been treated with antibiotics, she will proceed with wound closure with a myocutaneous flap. Grafts/Implants Used: None. - Complications None. - Admit VTE Documentation VTE Present on Admission: No - Patient is on Eliquis. VTE Mechan Device Prophylaxis: SCD's VTE Pharm Prophylaxis ordered?: Yes Surgery Charges CPT - 06934 ICD-10 - L89.314, M86.651, G35
[2020-04-30] MEDS: oxyCODONE 5 MG Tablet 10 MG PO (18:43)
[2020-04-30] MEDS: Acetaminophen 325 MG Tablet 650 MG PO (18:45)
[2020-04-30] MEDS: Docusate Sodium 100 MG Capsule PO (21:01)
[2020-04-30] MEDS: Oxybutynin 5 MG Tablet 10 MG PO (21:01)
[2020-04-30] MEDS: Ascorbic Acid 500 MG Tablet 1000 MG PO (21:01)
[2020-05-01] VITALS (8 sets, daily range): BP systolic 101–124; BP diastolic 61–71; PULSE 64–101; RESP 16–18; TEMP 36.6–36.8; O2SAT 94–98; BMI 29.8
[2020-05-01] MEDS: Acetaminophen 325 MG Tablet 650 MG PO (06:21)
[2020-05-01] MEDS: oxyCODONE 5 MG Tablet 10 MG PO (06:21)
[2020-05-01 06:32] LABS: Hematocrit 36.5 % (37-47); Hemoglobin 11.4 g/dL (12.0-15.0); Mean Corp Hgb Conc 31.2 g/dL (32-36); Mean Corpuscular Hgb 27.4 pg (27.0-32.0); Mean Corpuscular Volume 87.7 fL (81-99); Mean Platelet Vol. 9.7 fl (6.2-12.0); Platelet Count 289 K/mm3 (150-450); RBC Distribution Width CV 15.8 % (11.6-14.6); Red Blood Count 4.16 M/mm3 (4.2-5.4); White Blood Count 9.1 K/mm3 (4.4-11.0)
[2020-05-01 06:41] LABS: Erythrocyte Sedimentation Rate 56 mm/hr (0-30)
[2020-05-01 06:59] LABS: Anion Gap 6 (5-15); BUN 10 mg/dL (7-18); BUN/Creat Ratio 27.3 RATIO (10-20); Calcium,Total 8.6 mg/dL (8.5-10.1); Chloride 104 mmol/L (98-107); Creatinine, Serum 0.37 mg/dL (0.55-1.02); EST Glomerular Filtration Rate 189 mL/min (>60); Est Glom Filt Rate - Afr Amer 228 mL/min (>60); Estimated Creatinine Clearance 147.41 ml/min; Glucose 104 mg/dL (74-106); Potassium 3.9 mmol/L (3.5-5.1); Prealbumin 15.1 mg/dL (20.0-40.0); Sodium Level 139 mmol/L (136-145)
[2020-05-01] MEDS: Lactated Ringers 1,000 ML 60 ML IV (09:03)
[2020-05-01] MEDS: Metoprolol Tartrate 25 MG Tablet PO ×2 (09:04→22:29)
[2020-05-01] MEDS: Docusate Sodium 100 MG Capsule PO ×2 (09:04→22:31)
[2020-05-01] MEDS: Ascorbic Acid 500 MG Tablet 1000 MG PO ×2 (09:04→22:29)
[2020-05-01] MEDS: Vitamin E 400 UNITS Capsule PO (09:04)
[2020-05-01] MEDS: Fluconazole 100 MG Tablet 200 MG PO (09:05)
[2020-05-01] MEDS: Oxybutynin 5 MG Tablet 10 MG PO ×2 (09:05→22:31)
[2020-05-01] MEDS: APIXABAN 5 MG TABLET PO ×2 (09:05→22:30)
[2020-05-01] MEDS: Nitrofurantoin Macrocrystals 100 MG Capsule PO (10:30)
[2020-05-01] MEDS: proMETHazine 25 MG Tablet PO (12:00)
--- NOTE | 2020-05-01 13:14 | NURSING ---
sera called with update.
--- NOTE | 2020-05-01 13:15 | CASEMGMT ---
RAMÓN HART in to discuss [facility]OVER form with patient. RN HAILEY explained GROVER form, patient voiced understanding. Patient signed GROVER form. Original filed on chart. Copy provided to patient. Patient voiced no further needs or concerns at this time.
[2020-05-01] MEDS: Bisacodyl 10 MG Suppository RECTAL (14:10)
--- NOTE | 2020-05-01 15:00 | PN.SURG_ITS ---
Subjective: Postop #1 Patient complains of some nausea. - Physical Exam Vitals/I&O's: Vital Signs Temp Pulse Resp BP Pulse Ox 98.3 F 101 H 16 101/63 95 05/01/20 14:25 05/01/20 14:25 05/01/20 14:25 05/01/20 14:25 05/01/20 14:25 Oxygen Flow Rate (L/min) 1 Oxygen Delivery Method Room Air Weight: 190 lb Body Mass Index (BMI) 29.7 Intake and Output for Last 24 Hours 04/29/20 04/30/20 05/01/20 23:59 23:59 23:59 Intake Total 1336 / 1736 3115 / 3115 Output Total 1450 / 2250 2800 / 2800 Balance -114 / -514 315 / 315 General: Alert, Oriented x3 HEENT: PERRLA, EOMI Oral: Moist Mucosa Neck: Supple Abdomen: Soft, Non-Distended Skin: Ulcer/ Wound - right ischial pressure sore wound is stable. No active bleeding noted. Will hold off on the VAC til tomorrow since she is having trouble with nausea and the need for a bowel movement. Neurological: Cranial nerves II-XII grossly intact Psych/Mental Status: Normal Affect, Appropriate Microbiology Past 72 Hours 04/30/20 10:26 Bone - Ischium Gram Stain - Final 04/30/20 10:26 Bone - Ischium Wound Culture - Preliminary No growth-Final to follow 04/30/20 10:26 Wound - Ischium Gram Stain - Final 04/30/20 10:26 Wound - Ischium Wound Culture - Preliminary No growth-Final to follow Pathology - pending. Laboratory Results 05/01/20 06:24: WBC 9.1, RBC 4.16 L, Hgb 11.4 L, Hct 36.5 L, MCV 87.7, MCH 27.4, MCHC 31.2 L, RDW Std Deviation 50.0 H, RDW Coeff of Homer 15.8 H, Plt Count 289, MPV 9.7, ESR 56 H 05/01/20 06:24: Sodium 139, Potassium 3.9, Chloride 104, Carbon Dioxide 29.0, Anion Gap 6, BUN 10, Creatinine 0.37 L, Estim Creat Clear Calc 147.41, Est GFR (MDRD) Af Amer 228, Est GFR (MDRD) Non-Af 189, BUN/Creatinine Ratio 27.3 H, Glucose 104, Calcium 8.6, C-React Prot Ext Range 22.70 H, Prealbumin 15.1 L Current Medications Acetaminophen (Tylenol) 650 mg PO Q6H PRN PRN PRN Reason: fever/Noncardiac pain(4-10/10) Last Admin: 05/01/20 06:21 Dose: 650 mg Documented by: Apixaban (Eliquis) 5 mg PO BID [facility] Last Admin: 05/01/20 09:05 Dose: 5 mg Documented by: Ascorbic Acid (Vitamin C) 1,000 mg PO BID [facility] Last Admin: 05/01/20 09:04 Dose: 1,000 mg Documented by: Baclofen (Lioresal) 20 mg PO Q8H PRN PRN PRN Reason: MUSCLE SPASMS Cholecalciferol (Vitamin D (25mcg)) 1,000 unit PO BID [facility] Last Admin: 05/01/20 09:04 Dose: 1,000 unit Documented by: Cholestyramine Resin (Questran 4gm Packet) 1.5 gm PO DAILY@0700 [facility] Diazepam (Valium) 5 mg PO 4X/DAY PRN PRN PRN Reason: SPASMS Docusate Sodium (Colace) 100 mg PO BID [facility] Last Admin: 05/01/20 09:04 Dose: 100 mg Documented by: Fluconazole (Diflucan) 200 mg PO DAILY [facility] Last Admin: 05/01/20 09:05 Dose: 200 mg Documented by: Hydromorphone HCl (Dilaudid Inj) 1 mg IV Q3H PRN PRN PRN Reason: Pain Score 6-10/10 Ampicillin Sodium/Sulbactam (Sodium 3 gm/ Sodium Chloride) 112 mls @ 150 mls/hr IV Q6 [facility] Last Infusion: 05/01/20 12:54 Dose: Infused Documented by: Lactated Ringer's () 1,000 mls @ 60 mls/hr IV .[id number] [facility] Last Infusion: 05/01/20 12:55 Dose: 60 mls/hr Documented by: Sodium Chloride () 250 mls @ 15 mls/hr IV .[id number] PRN PRN Reason: Saline Flush Lactobacillus Acidophilus (Acidophilus) 2 tablet PO DAILY [facility] Last Admin: 05/01/20 09:04 Dose: 2 tablet Documented by: Letrozole (Femara) 2.5 mg PO DAILY [facility] Last Admin: 05/01/20 09:09 Dose: 2.5 mg Documented by: Magnesium Hydroxide (Milk Of Magnesia) 30 ml PO BID [facility] Metoprolol Tartrate (Lopressor (Beta David)) 25 mg PO BID [facility] Last Admin: 05/01/20 09:04 Dose: 25 mg Documented by: Nitrofurantoin Macrocrystals ([facility]robid) [facility] Last Admin: 05/01/20 10:30 Dose: 100 mg Documented by: Nutritional Formula ([place]ingo - [place] Flavor) [facility] Last Admin: 05/01/20 09:03 Dose: 1 packet Documented by: Oxybutynin Chloride (Ditropan) 10 mg PO BID [facility] Last Admin: 05/01/20 09:05 Dose: 10 mg Documented by: Oxycodone HCl (Oxyir) 10 mg PO Q4H PRN PRN PRN Reason: Pain Score 4-5/10 Last Admin: 05/01/20 06:21 Dose: 10 mg Documented by: Promethazine HCl (Phenergan Tablet) 25 mg PO Q4H PRN PRN PRN Reason: NAUSEA/VOMITING Last Admin: 05/01/20 12:00 Dose: 25 mg Documented by: Sodium Chloride () 10 - 40 ml IV UD PRN PRN Reason: SALINE FLUSH Vitamin E (Vitamin E) 400 units PO DAILY [facility] Last Admin: 05/01/20 09:04 Dose: 400 units Documented by: Medical Necessity - Tobacco Use Smoking Status: Never smoker Tobacco Use: Non-smoker Assessment/Plan All Active Problems Decubitus ulcer of coccygeal region, stage 2 (Acute) Pressure injury, stage 4, with gangrene (Acute) History of breast cancer (Acute) Leukocytosis (Acute) Sepsis (Acute) 1. Right ischial pressure sore, Stage IV. ' 2. Osteomyelitis. 3. Multiple sclerosis. 4. s/p excision right ischial pressure sore, Stage IV, with partial ostectomy for osteomyelitis. Patient is having some nausea, probably medication related. She is concerned about lack of bowel movements over the last several days. Will add a suppository and milk of magnesia. Right ischial pressure sore wound is stable. No active bleeding seen. Will hold off on the VAC until tomorrow. Operative cultures are negative thus far. Continue Unasyn. Prealbumin was 15.1. Encourage nutritional supplementation with protein to help with the healing process. Followup Wound Center after discharge on 05/13/20.
--- NOTE | 2020-05-01 15:44 | NURSING ---
wound photo: right ischium
[2020-05-01] MEDS: Magnesium Hydroxide 30 ML UDC PO ×2 (15:49→22:28)
[2020-05-01] MEDS: Baclofen 10 MG Tablet 20 MG PO (22:28)
[2020-05-01] MEDS: 0.9% Saline Lock 10 ML Syringe IV (23:50)
[2020-05-02] MEDS: Lactated Ringers 1,000 ML 60 ML IV (02:54)
[2020-05-02 02:56] VITALS: BP 129/76; PULSE 72; RESP 17; TEMP 37.1; O2SAT 95
[2020-05-02] MEDS: Cholestyramine/Sucrose 4 GM/PACKET 1.5 GM PO (05:53)
[2020-05-02] MEDS: 0.9% Saline Lock 10 ML Syringe IV (06:42)
[2020-05-02] MEDS: Acetaminophen 325 MG Tablet 650 MG PO (06:53)
--- NOTE | 2020-05-02 07:57 | PCM.PN.SRG ---
Subjective: Postop #2 Patient has no more nausea. She had a bowel movement. - Physical Exam Vitals/I&O's: Vital Signs Temp Pulse Resp BP Pulse Ox 98.7 F 72 17 129/76 H 95 05/02/20 02:56 05/02/20 02:56 05/02/20 02:56 05/02/20 02:56 05/02/20 02:56 Oxygen Flow Rate (L/min) 1 Oxygen Delivery Method Room Air Weight: 190 lb Body Mass Index (BMI) 29.7 Intake and Output for Last 24 Hours 04/30/20 05/01/20 05/02/20 23:59 23:59 23:59 Intake Total 1336 / 1736 4124 / 4124 1650 / 1650 Output Total 1450 / 2250 4550 / 4550 1550 / 1550 Balance -114 / -514 -426 / -426 100 / 100 General: Alert, Oriented x3 HEENT: PERRLA, EOMI Oral: Moist Mucosa Neck: Supple Abdomen: Soft, Non-Distended Skin: Ulcer/ Wound - right ischial wound is stable. No bleeding seen. VAC applied today. Neurological: Cranial nerves II-XII grossly intact Psych/Mental Status: Normal Affect, Appropriate Microbiology Past 72 Hours 04/30/20 10:26 Bone - Ischium Gram Stain - Final 04/30/20 10:26 Bone - Ischium Wound Culture - Preliminary No growth-Final to follow 04/30/20 10:26 Wound - Ischium Gram Stain - Final 04/30/20 10:26 Wound - Ischium Wound Culture - Preliminary No growth-Final to follow Pathology - pending. Current Medications Acetaminophen (Tylenol) 650 mg PO Q6H PRN PRN PRN Reason: fever/Noncardiac pain(-09/07) Last Admin: 05/02/20 06:53 Dose: 650 mg Documented by: Apixaban (Eliquis) 5 mg PO BID [facility] Last Admin: 05/01/20 22:30 Dose: 5 mg Documented by: Ascorbic Acid (Vitamin C) 1,000 mg PO BID [facility] Last Admin: 05/01/20 22:29 Dose: 1,000 mg Documented by: Baclofen (Lioresal) 20 mg PO Q8H PRN PRN PRN Reason: MUSCLE SPASMS Last Admin: 06/03/20 22:28 Dose: 20 mg Documented by: Cholecalciferol (Vitamin D (25mcg)) 1,000 unit PO BID [facility] Last Admin: 05/01/20 22:29 Dose: 1,000 unit Documented by: Cholestyramine Resin (Questran 4gm Packet) 1.5 gm PO DAILY@0700 [facility] Last Admin: 05/02/20 05:53 Dose: 1.5 gm Documented by: Diazepam (Valium) 5 mg PO 4X/DAY PRN PRN PRN Reason: SPASMS Docusate Sodium (Colace) 100 mg PO BID [facility] Last Admin: 05/01/20 22:31 Dose: 100 mg Documented by: Fluconazole (Diflucan) 200 mg PO DAILY [facility] Last Admin: 05/01/20 09:05 Dose: 200 mg Documented by: Hydromorphone HCl (Dilaudid Inj) 1 mg IV Q3H PRN PRN PRN Reason: Pain Score 6-10/10 Ampicillin Sodium/Sulbactam (Sodium 3 gm/ Sodium Chloride) 112 mls @ 150 mls/hr IV Q6 [facility] Last Infusion: 05/02/20 06:37 Dose: Infused Documented by: Lactated Ringer's () 1,000 mls @ 60 mls/hr IV .[id number] [facility] Last Infusion: 05/02/20 06:37 Dose: 60 mls/hr Documented by: Sodium Chloride () 250 mls @ 15 mls/hr IV .[id number] PRN PRN Reason: Saline Flush Lactobacillus Acidophilus (Acidophilus) 2 tablet PO DAILY [facility] Last Admin: 05/01/20 09:04 Dose: 2 tablet Documented by: Letrozole (Femara) 2.5 mg PO DAILY [facility] Last Admin: 05/01/20 09:09 Dose: 2.5 mg Documented by: Magnesium Hydroxide (Milk Of Magnesia) 30 ml PO BID [facility] Last Admin: 05/01/20 22:28 Dose: 30 ml Documented by: Metoprolol Tartrate (Lopressor (Beta David)) 25 mg PO BID [facility] Last Admin: 05/01/20 22:29 Dose: 25 mg Documented by: Nitrofurantoin Macrocrystals (Macrobid) [facility] Last Admin: 05/01/20 10:30 Dose: 100 mg Documented by: Nutritional Formula (Domingo - [place] Flavor) [facility] Last Admin: 05/01/20 17:42 Dose: 1 packet Documented by: Oxybutynin Chloride (Ditropan) 10 mg PO BID [facility] Last Admin: 05/01/20 22:31 Dose: 10 mg Documented by: Oxycodone HCl (Oxyir) 10 mg PO Q4H PRN PRN PRN Reason: Pain Score 4-5/10 Last Admin: 05/01/20 06:21 Dose: 10 mg Documented by: Promethazine HCl (Phenergan Tablet) 25 mg PO Q4H PRN PRN PRN Reason: NAUSEA/VOMITING Last Admin: 05/01/20 12:00 Dose: 25 mg Documented by: Sodium Chloride () 10 - 40 ml IV UD PRN PRN Reason: SALINE FLUSH Last Admin: 05/02/20 06:42 Dose: 10 ml Documented by: Vitamin E (Vitamin E) 400 units PO DAILY [facility] Last Admin: 05/01/20 09:04 Dose: 400 units Documented by: Medical Necessity - Tobacco Use Smoking Status: Never smoker Tobacco Use: Non-smoker Assessment/Plan All Active Problems Decubitus ulcer of coccygeal region, stage 2 (Acute) Pressure injury, stage 4, with gangrene (Acute) History of breast cancer (Acute) Leukocytosis (Acute) Sepsis (Acute) 1. Right ischial pressure sore, Stage IV. ' 2. Osteomyelitis. 3. Multiple sclerosis. 4. s/p excision right ischial pressure sore, Stage IV, with partial ostectomy for osteomyelitis. Her nausea is much better. She had a bowel movement with the milk of magnesia. Will write script for that. Right ischial pressure sore wound is stable. No active bleeding seen. VAC applied today. Operative cultures are negative thus far. Will discharge on Augmentin. Prealbumin was 15.1. Encourage nutritional supplementation with protein to help the healing process. Discharge home today. Wrote script for Augmentin and for Milk of Magnesia. Followup Wound Center 05/13/20.
--- NOTE | 2020-05-02 08:17 | DCINST_ITS ---
You will use the following diet at home:: No restrictions, Other - encourage nutritional supplementation with protein to help the healing process. Discharge Activity: May Shower - on the days the vac is changed., - - may be up in wheelchair with assist. May shower in (days): 2 - on the days the vac is changed. Call your doctor if your incision/area has: Continuous Slow Oozing, Sudden Increased Bleeding, Increased Pain/ Swelling, Increased Redness, Foul Smelling Discharge, Swelling at the incision site Call your doctor if you observe: Fever of 101 or Higher, Coldness, Increased Pain, Shortness of breath, Chest pain Suture Line Care: - - vac changes three times per week at 160 mmHg continuous suction. Change Dressing in (Days):: 2 - vac changes three times per week. Cleanse incision/area with: Soap & Water - may cleanse the wound with soap and water at the time of the vac change., - - may shower on the days the vac is changed. Additional Dressing/Incision Instructions:: Home Health to assist with vac changes three times per week at 150 mmHg continuous suction. may cleanse the wound with soap and water at the time of the vac change. Allergies/Adverse Reactions: Allergies bacitracin [From Neosporin ([id number])] Allergy (Verified 04/25/20 13:17) Rash neomycin [From Neosporin ([id number])] Allergy (Verified 04/25/20 13:17) Rash ondansetron [From Zofran] Allergy (Verified 04/30/20 13:09) palpitations polymyxin B [From Neosporin ([id number])] Allergy (Verified 04/25/20 13:17) Rash Sulfa (Sulfonamide Antibiotics) Allergy (Verified 04/25/20 13:17) Rash Medications to take at Discharge Ascorbic Acid [Vitamin C] 1 tab PO BID 11/03/19 Baclofen 1 - 2 tab PO Q8H PRN PRN 11/03/19 Cholecalciferol (VIT D3) [Vitamin D3] 1,000 unit PO BID 11/03/19 Cholestyramine (with Sugar) [Cholestyramine Powder] 1 packet PO DAILY 11/03/19 Cranberry Fruit Extract [Cranberry] 200 mg PO DAILY 11/03/19 Letrozole 1 tab PO DAILY 11/03/19 Oxybutynin [Ditropan] 2 tab PO BID 11/03/19 Vitamin E (Dl,Tocopheryl Acet) [Vitamin E] 400 unit PO DAILY 11/03/19 Acetaminophen [Tylenol Tablet] 650 mg PO Q6H PRN PRN tab 11/08/19 Metoprolol Tartrate [Lopressor (beta alex)] 25 mg PO BID tab 11/08/19 nystatin 100,000 unit/gram topical cream 1 applic TOPICAL BID 10 Days #30 g 01/15/20 fluconazole 200 mg tablet 200 mg PO DAILY #14 tab 03/18/20 nystatin 100,000 unit/gram topical powder 1 applic TOPICAL TID 15 Days #60 g 03/18/20 Aboric Acid 600 mg RECTALLY DAILY 04/25/20 Apixaban [Eliquis] 5 mg PO BID 04/25/20 Nitrofurantoin Macrocrystal [Macrodantin] 50 mg PO DAILY 04/25/20 Pro Stat 5 ml PO DAILY 04/25/20 Amox/Clavulanate Tablet [Augmentin Tablet] 875 mg PO Q12H #14 tab 05/02/20 L. Rhamnosus GG/Inulin [Culturelle Digest 10B Cell Cap] 2 ea PO DAILY #60 cap 05/02/20 Magnesium Hydroxide [Milk Of Magnesia] 30 ml PO BID #1 bottle 05/02/20 The following prescriptions were given: Amox/Clavulanate Tablet [Augmentin Tablet] 875 mg PO Q12H #14 tab Transmission Status: Pending to [facility] L. Rhamnosus GG/Inulin [Culturelle Digest 10B Cell Cap] 2 ea PO DAILY #60 cap Transmission Status: Pending to [facility] Magnesium Hydroxide [Milk Of Magnesia] 30 ml PO BID #1 bottle Transmission Status: Received by [facility] Orders to be completed after discharge: CBC-Complete Blood Cnt No Diff Time Frame: 04/30/20, Facility: [facility], Location: Laboratory [place], [place] Time Frame: 04/29/20, Facility: [facility], Location: Laboratory Primary Care Physician: Jovon Levy MD [Primary Care Provider] - Test Results: Test results from this visit will be discussed in further detail at your follow- up appointment, if applicable. Please Follow Up With: Jose E Dougherty MD When: wednesday05/13/20 at [facility]. call [phone] for appt time. Proposed Discharge Date: 05/02/20
[2020-05-02 09:32] VITALS: BP 130/80; PULSE 86; RESP 18; TEMP 37; O2SAT 99
[2020-05-02 09:36] VITALS: PULSE 86
[2020-05-02] MEDS: Nitrofurantoin Macrocrystals 100 MG Capsule PO (09:36)
[2020-05-02] MEDS: Vitamin E 400 UNITS Capsule PO (09:36)
[2020-05-02] MEDS: Metoprolol Tartrate 25 MG Tablet PO (09:36)
[2020-05-02] MEDS: Docusate Sodium 100 MG Capsule PO (09:37)
[2020-05-02] MEDS: APIXABAN 5 MG TABLET PO (09:37)
[2020-05-02] MEDS: Ascorbic Acid 500 MG Tablet 1000 MG PO (09:37)
[2020-05-02] MEDS: Magnesium Hydroxide 30 ML UDC PO (09:39)
[2020-05-02] MEDS: Oxybutynin 5 MG Tablet 10 MG PO (09:40)
[2020-05-02] MEDS: Nystatin/Triamcin Cream Tube 1 APPLIC TOPICAL (10:02)
== END 2020-05-02 12:10 | disposition home or self-care (01) ==
LOC: SDC 11:02 → MS3 11:04
PROVIDERS: Anesthesiology; Admitting Provider Surgery; PCP Family Medicine; Referring Provider Surgery; Visit Provider Surgery
PROC: (CPT 15946; principal; 2020-04-30 09:15)
DX: L89.314 Pressure ulcer of right buttock, stage 4 (principal); G35 Multiple sclerosis; M86.651 Other chronic osteomyelitis, right thigh
CPT/HCPCS: 01120; 15946; 36415; 80048; 84134; 85025; 85027; 85610; 85652; 86140; 87070; 87075; 87102; 87205; 87206; 87635; 88305; 88311; 96361; 96365; 96366; 99218; G2023; J7120; A4216; G0378; G0379; J0295; J2405; U0003

== ENCOUNTER 2020-05-13 08:38 | Outpatient (RCR) | payer MEDICARE, SELFPAY ==
[2020-04-29 00:23] VITALS: BP 138/96; PULSE 92; RESP 16; TEMP 36.2
[2020-04-30 08:19] VITALS: BMI 29.7
[2020-05-13 10:24] VITALS: BP 124/98; PULSE 89; RESP 18; TEMP 36.9; BMI 29.7
--- NOTE | 2020-05-13 10:58 | PN.PCM_ITS ---
(1) Right ischial pressure sore, stage 4 Status: Chronic Current Visit: Yes Code(s): L89.314 - Pressure ulcer of right buttock, stage 4 (2) Chronic osteomyelitis of right pelvic region Status: Chronic Current Visit: Yes Code(s): M86.651 - Other chronic osteomyelitis, right thigh (3) Debility Status: Chronic Current Visit: Yes Code(s): R53.81 - Other malaise (4) Multiple sclerosis Status: Chronic Current Visit: Yes Code(s): G35 - Multiple sclerosis Type of Wound Date of Service: 05/13/20 Chief Complaint: Right ischial pressure sore, Stage IV. History of Wound: Surgery 04/30/20 - Excision right ischial pressure sore, Stage IV, with partial ostectomy for osteomyelitis. Surgery 11/03/19 - Excision necrotic right ischial pressure sore, Stage IV, with partial ostectomy for osteomyelitis. Wound care - Wound VAC at 150 mmHg. Operative cultures from 04/30/20 were negative for bacterial growth for both the tissue and bone. Operative culture - Coag negative Staph, Clostridium group, Prevotella oralis, and Bacteroides thetaiotamicron in the soft tissue and Staphylococcus capitis, Bacteroides thetaiotamicron, and Clostridium group in the bone. She was discharged on Ceftriaxone and Flagyl. The Ceftriaxone was changed to Cefdinir because she developed a clot in the PICC line and it was pulled. She has finish ed the antibiotics. With the recent periwound fungal rash, she was started on Diflucan which has improved. Pathology - negative for osteomyelitis. CT Pelvis from 11/03/19 showed There is a 2.6 cm x 3.5 cm soft tissue defect in the medial proximal right. buttock with the surrounding soft tissue swelling and edema. The inflammatory changes extend into the right inferior pubic ramus with the findings suggestive of a possible bony destruction secondary to osteomyelitis. Dense calcifications are seen in the soft tissues overlying both buttocks and the left side of the sacrum. There is also evidence of a 3.2 cm x 4.1 cm soft tissue density involving the tip of the sacrum and coccyx. There is also evidence of multiple calcific densities and ossifications overlying the right greater trochanter. There is also evidence of soft tissue swelling at that site. Prealbumin from 11/04/19 was 9.7. Encourage nutritional supplementation with protein to help the healing process. Today she denies fever. Her appetite is ok. She had developed a coccyx abrasion that was treated with Silver dressing and it has healed. Progress of Wound: Surgery on 04/30/20. Ulcer stable. - Physical Exam Vital Signs Temp Pulse Resp BP 98.4 F 89 18 124/98 H 05/13/20 10:24 05/13/20 10:24 05/13/20 10:24 05/13/20 10:24 General: Alert, Oriented x3, Cooperative HEENT: Atraumatic Oral: Moist Mucosa Lungs: Normal air movement Cardiovascular: Regular rate Extremities: Capillary Refill Less than 3 Seconds Skin: Ulcer/ Wound - Right ischial ulcer, Stage IV, ulcer is beefy pink Wound Measurements and Assessment WC - Nurse 1 - General Ulcer Measurement Start: 05/13/20 10:24 Freq: Status: Active Protocol: Activity Type Activity Date Activity User E-Sign Co-Sign Detail Recorded Client Recorded Date Recorded By Document 05/13/20 10:24 [id number] 05/13/20 10:28 05/13/20 10:24 Wound Center Nurse 1 [Ulcer Assessment] #1- R GLUTEAL FOLD -Combined with other wound No -Current Size (cm) - Length 6 -Current Size (cm) - Width 4.2 -Current Size (cm) - Depth 4.4 -Total Square Cm 25.2 -Date of Last Picture (Recall this 05/13/20 field) -Photo Taken Yes -Epithelialization None Present -Tunneling No -Undermining/Tunneling No -Circular Undermining No -Exudate Amt Large -Exudate Type Serous -Wound Margin Distinct, Outline Attached -Granulation Amt Large (67-100%) -Granulation Quality Red -Slough/Fibrin Yes -Necrosis Amt Large (67-100%) -Necrotic Tissue Type Adherent Slough -Structure Exposed Bone -Texture (Janene-wound Skin Appearance) Excoriation -Moisture (Janene-wound Skin Appearance No Abnormality, ) Assessed -Color (Janene-wound Skin Appearance) Erythema -Temperature (Janene-wound Skin No Abnormality Appearance) (Pt Warm) -Tenderness on Palpation (Janene-wound No Skin Appearance) -Ulcer Cleansing Rinsed/ Irrigated with Saline -Foul Odor after Cleansing No -Anesthetic Used 4% Lidocaine Solution [Edema Assessment] -Lower Limb Edema Present NA Musculoskeletal: No Tenderness to Palpation of Joints or Extremities Neurological: Neuro grossly intact Psych/Mental Status: Normal Affect, Appropriate Debridement Note Wound debrided: Ischial ulcer Laterality: Right Wound Grade/Stage: Stage IV Type of Debridement: Excisional debridement Anesthesia Used: 5% Lidocaine Gel Depth: Down to and including healthy tissue, in the subcutaneous layer, to muscle Percentage of wound debrided: 100 Instrument Used: 7mm curette Tissue Removed: Subcutaneous tissue and slough into the muscle Severity: Fat Layer Exposed Amount of bleeding with debridement: Mild Bleeding Controlled with: Pressure, Compression and gauze Patient tolerated procedure well Assessment/Plan Active Problems Chronic osteomyelitis of right pelvic region (Chronic) Right ischial pressure sore, stage 4 (Chronic) Debility (Chronic) Multiple sclerosis (Chronic) Assessment: 1. Necrotic right ischial pressure sore, Stage IV. 2. Osteomyelitis. 3. Multiple sclerosis. 4. s/p excision necrotic right ischial pressure sore, Stage IV, with partial ostectomy for osteomyelitis. Plan: Surgery on 04/30/20 for Excision right ischial pressure sore, Stage IV, with partial ostectomy for osteomyelitis. Surgical wound cultures were negative for bacterial growth. Continue Augmentin. Discussed with the patient and her that the pressure sore is showing some improvement with granulation tissue. However with the persistent undermining (which is common in ischial pressure sores), the pressure sore will not heal without a myocutaneous flap. Initially will proceed with another excision of the pressure sore and partial ostectomy for osteomyelitis to make sure she is on the right antibiotics for the flap. The surgery can now proceed because the periwound rash has improved greatly. To help with positioning in bed at home, will order an overhead trapeze and home PT to help with muscle strength in her arms to see if she can help assist with the positioning a little bit. If not then she will stop. Patient was informed of the risks and complications of the procedure including alternatives to surgery. These were discussed with her personally. She voiced understanding and wishes to proceed. For the flap surgery, she will be an inpatient for a few days. Depending on the antibiotics needed, a PICC line may be needed preop for IV antibiotics, in which case she would be admitted day before the flap surgery. She is scheduled for her flap surgery 05/27/20. She will be on bed rest for 6 weeks. Prealbumin from 05/01/20 was 15.1. Encourage nutritional supplementation with protein to help the healing process. [id number]: [id number] Global Visit
== END 2020-05-28 23:59 ==
LOC: WC 08:38
PROVIDERS: Family Provider Family Medicine; PCP Family Medicine; Referring Provider Nurse Practitioner Family; Visit Provider Nurse Practitioner Family
DX: L89.214 Pressure ulcer of right hip, stage 4 (principal); M86.651 Other chronic osteomyelitis, right thigh; G35 Multiple sclerosis
CPT/HCPCS: 11042; 11045

== ENCOUNTER 2020-05-26 12:23 | Inpatient (IN) | payer MEDICARE, SELFPAY ==
[2020-05-26 12:20] VITALS: BMI 28.0
[2020-05-26 12:45] VITALS: BMI 27.6
[2020-05-26 14:16] LABS: Hematocrit 40.6 % (37-47); Hemoglobin 12.5 g/dL (12.0-15.0); Mean Corp Hgb Conc 30.8 g/dL (32-36); Mean Corpuscular Hgb 26.9 pg (27.0-32.0); Mean Corpuscular Volume 87.3 fL (81-99); Mean Platelet Vol. 9.5 fl (6.2-12.0); Platelet Count 401 K/mm3 (150-450); RBC Distribution Width CV 14.6 % (11.6-14.6); RBC Distribution Width SD 46.6 fl (35.1-43.9); Red Blood Count 4.65 M/mm3 (4.2-5.4); White Blood Count 14.4 K/mm3 (4.4-11.0)
[2020-05-26 14:17] LABS: ALB/GLOB Ratio 0.5 RATIO (0.9-2.4); AST(SGOT) 12 U/L (15-37); Alanine Aminotransfer ALT/SGPT 14 U/L (13-56); Albumin, Serum 2.5 g/dL (3.2-5.0); Alkaline Phosphatase 83 U/L (45-117); Anion Gap 6 (5-15); BUN 10 mg/dL (7-18); BUN/Creat Ratio 29.1 RATIO (10-20); Calcium,Total 9.1 mg/dL (8.5-10.1); Chloride 103 mmol/L (98-107); Creatinine, Serum 0.34 mg/dL (0.55-1.02); EST Glomerular Filtration Rate 202 mL/min (>60); Est Glom Filt Rate - Afr Amer 245 mL/min (>60); Estimated Creatinine Clearance 160.42 ml/min; Globulin 5.2 g/dL (2.2-4.2); Glucose 98 mg/dL (74-106); Prealbumin 16.2 mg/dL (20.0-40.0); Protein, Total 7.7 g/dL (6.4-8.2); Sodium Level 137 mmol/L (136-145)
[2020-05-26 14:44] VITALS: BP 112/59; PULSE 88; RESP 16; TEMP 36.6; O2SAT 100
[2020-05-26] MEDS: 0.9% Saline Lock 10 ML Syringe IV (16:29)
[2020-05-26] MEDS: Lactated Ringers 1,000 ML 60 ML IV (16:29)
[2020-05-26] MEDS: Enoxaparin 40 MG/0.4 ML Syringe SC (16:30)
[2020-05-26 18:40] VITALS: BMI 27.6
--- NOTE | 2020-05-26 18:55 | NURSING ---
spoke with Dr. Dougherty about covid test. since pt had Covid test with previous surgery on 04/29/2020 with a negative result another covid test was not needed. With low to no stock for in house testing sample would have to be sent to [facility] - which has a 3-5 day turn around.
--- NOTE | 2020-05-26 19:43 | NURSING ---
Addendum entered by Tonja Roman 05/26/20 19:45: I did inform them both that the pt may not have any visitors in TCU per our new guidelines. both understood this. but if visitation changes they would like her to be added. Original Note: pts visitor while on [facility] will be her Shelia Purcell.. if the pt goes over to TCU for the next 6weeks or so they would like Solange Munguia added as a visitor d/t the will be leaving town for a few days to have a break and get refreshed both pt and would like this.
--- NOTE | 2020-05-26 21:41 | PCM.HP.BLA ---
History and Physical Date of Admission: 05/27/20 History and Physical Date of Admission: 04/30/20 HISTORY OF PRESENT ILLNESS The patient is a 65 year old F with a history of MS presents with a worsening right ischial pressure sore with increasing undermining. She has completed her antibiotics (Cefdinir and Flagyl) for operative cultures from 11/03/19 that showed Coag negative Staph, Clostridium group, Prevotella oralis, and Bacteroides thetaiotamicron in the soft tissue and Staphylococcus capitis, Bacteroides thetaiotamicron, and Clostridium group in the bone. Recent wound culture from 12/2019 was negative. She presents today for further operative excision with partial ostectomy for osteomyelitis. I want to make sure she is on the right antibiotic before proceeding with wound closure with a myocutaneous flap. She is currently using Dakin's dressing changes to help control a periwound rash. PAST MEDICAL HISTORY Chronic osteomyelitis of right pelvic region Right ischial pressure sore, stage 4 Multiple sclerosis PAST SURGICAL HISTORY Excision necrotic right ischial pressure sore, Stage IV, with partial ostectomy for osteomyelitis - 11/03/19 ALLERGIES bacitracin [From Neosporin ([id number])] neomycin [From Neosporin ([id number])] ondansetron [From Zofran] polymyxin B [From Neosporin ([id number])] Sulfa (Sulfonamide Antibiotics) MEDICATIONS Tylenol, Eliquis, Vitamin C, Baclofen, Vitamin D3, Cranberry, Diflucan, Letrozole, Lopressor, Macrodantin, Ditropan, Vitamin E. SOCIAL HISTORY Smoking Status: Never smoker FAMILY HISTORY Maternal - Cancer Paternal - Heart Disease REVIEW OF SYSTEMS Comment: Constitutional: Denies: Chills, Fever, Weight Change. HEENT: Denies: Head Aches, Sinus Congestion, Sinus Drainage. Cardiovascular: Denies: Chest Pain, Palpitations. Respiratory: Denies: Cough, Shortness of breath at rest, Sputum production. Gastrointestinal: Denies: Abdominal Pain, Nausea, Vomiting. Genitourinary: Denies: Dysuria. Musculoskeletal: Denies: Joint Pain, Joint Tenderness. Skin: Reports: Wounds - For the last 2 to 3 weeks. Denies: Rash. Neurological: Denies: Numbness, Tingling, Focal weakness. Psychiatric: Denies: Anxiety, Depression. Hematologic/ Lymphatic: Denies: Easy Bruising, Easy Bleeding PHYSICAL EXAMINATION Vitals/I&O's: General: Alert, Oriented x3, Cooperative, No apparent distress HEENT: PERRLA, EOMI. Oral: Moist Mucosa Neck: Supple, nontender. No cervical adenopathy. Lungs: Clear to auscultation. Cardiovascular: Regular rate, Regular Rhythm. Abdomen: Soft, Non-Distended. Extremities: No edema. Skin: On the right ischial area is a pressure sore, Stage IV. Measures 2 x 3 x 5.5 cm. Some granulation tissue seen. Bone is palpable but not exposed. Neurological: - CN II - XII grossly intact. Psych/Mental Status: Normal Affect, Appropriate ASSESSMENT 1. Right ischial pressure sore, Stage IV. 2. Osteomyelitis. 3. Multiple sclerosis. PLAN Continue Dakin's dressing changes to the right ischial pressure sore. She has completed her antibiotics (Cefdinir and Flagyl) for operative cultures from 11/03/19 that showed Coag negative Staph, Clostridium group, Prevotella oralis, and Bacteroides thetaiotamicron in the soft tissue and Staphylococcus capitis, Bacteroides thetaiotamicron, and Clostridium group in the bone. Recent wound culture from 12/2019 was negative. Discussed with the patient and her that the pressure sore is showing some improvement with granulation tissue. However with the persistent undermining (which is common in ischial pressure sores), the pressure sore will not heal without a myocutaneous flap. Initially will proceed with another excision of the pressure sore and partial ostectomy for osteomyelitis to make sure she is on the right antibiotics for the flap. The surgery can now proceed because the periwound rash has improved greatly. Will proceed with the excision first to make sure she is on the right antibiotic at the time of the flap. That is done under general anesthesia with a surgical observation overnight stay in the hospital. The VAC will be placed the next day. For the flap surgery, she will be an inpatient for a few days. Depending on the antibiotics needed, a PICC line may be needed preop for IV antibiotics, in which case she would be admitted day before the flap surgery. Prealbumin from 11/04/19 was 9.7. Encourage nutritional supplementation with protein to help the healing process. The pressure sore is developing increasing undermining making operative therapy for wound closure a more urgent option because of the risk of worsening symptoms especially concerning the underlying bone and osteomyelitis. Patient was informed of the risks and complications of the procedure including alternatives to surgery. These were discussed with the patient personally. Patient voices understanding and wishes to proceed. Procedure Criteria Procedure Type: Essential Procedure Essential: Yes Criteria Statement: On 02/13/2020 the [facility] ([facility]) Public Order signed by [facility] Director Kenyatta Sterling M.D., regarding the Management of Non-Essential Surgeries and Procedures for the purpose of preserving Personal Protective Equipment (PPE) and critical hospital capacity and resources within [place] went into effect as of 02/14/2020 at 5:00PM. According to the [facility] Public Order: This action will remain in full force and effect until the State of Emergency declared by the Governor no longer exists or the Director of the [facility] rescinds or modifies this Order. This [facility] order stated all non-essential or elective surgeries and procedures that utilize PPE should be delayed unless there is undue risk to the current or future health of a patient. After reviewing the aforementioned [facility] Public Order and the patient's clinical case, I have determined that the scheduled procedure meets the criteria to go forward. Risk to Patient if Procedure Delayed: Risk of rapidly worsening to severe symptoms if delayed - Patient has a worsening right ischial pressure sore with increased undermining and risk of worsening infection in the underlying bone with osteomyelitis.
[2020-05-26 23:08] VITALS: BP 110/61; PULSE 108; RESP 16; TEMP 37.2; O2SAT 96
[2020-05-26 23:13] VITALS: BP 110/61; PULSE 108
[2020-05-26] MEDS: Docusate Sodium 100 MG Capsule PO (23:13)
[2020-05-26] MEDS: Oxybutynin 5 MG Tablet PO (23:13)
[2020-05-26] MEDS: Nystatin Powder 15gm Bottle 1 APPLIC TOPICAL (23:13)
[2020-05-26] MEDS: Metoprolol Tartrate 25 MG Tablet PO (23:13)
[2020-05-26] MEDS: Magnesium Hydroxide 30 ML UDC PO (23:13)
[2020-05-26] MEDS: Baclofen 10 MG Tablet 20 MG PO (23:15)
[2020-05-26] MEDS: Nystatin Ointment 1 APPLIC TOPICAL (23:15)
[2020-05-26] MEDS: Acetaminophen 325 MG Tablet 650 MG PO (23:21)
[2020-05-27] VITALS (11 sets, daily range): BP systolic 100–143; BP diastolic 55–89; PULSE 82–99; RESP 16–18; TEMP 36.3–37; O2SAT 94–99; BMI 28.0
--- NOTE | 2020-05-27 09:45 | PRES_PTH ---
PATIENT: NAY GREENE LOC: MS3 U#:[id number] AGE/SX: 65/F ROOM: [facility] [place] RE05/26/[address]: Dr. Jose E Dougherty MD : 1955 BED: 1 DIS: 06/15/2020 SPEC #: [id number] RECD: 05/27/20 15:18 STATUS: HETAL REAquilino #: [id number] DEEJAY: 05/27/20 09:[address]: Jose E Dougherty DEPT: SURGICAL PATHOLOGY RECD BY: Estelle Thomas ENTERED: 05/28/20 09:45 SP TYPE: PRESS SORE OTHR DR: Dr. Jovon Levy MD Tissues: A - Ischium, NOS B - Ischium, NOS Procedures: Decalcification bone/plaque Surgery Specimen Level III HEADER OPERATION: Excision ischial pressure sore, partial ostectomy PRE-OP DIAGNOSIS: Right ischial pressure sore stage IV; osteomyelitis TISSUE SUBMITTED: A - Right ischial pressure sore stage IV, soft tissue, B - Right ischial pressure sore stage IV, bone MICROSCOPIC DIAGNOSIS A. Right ischial pressure sore stage IV, soft tissue: Pieces of skin and fibroconnective and fibroadipose tissue with focal ulceration, acute and chronic inflammation, granulation tissue reaction and fibrosis. B. Bone, right ischial region: Fragments of bone with acute and chronic osteomyelitis and reactive changes. SJ:nano 06/03/20 MICROSCOPIC DESCRIPTION Slides are reviewed. GROSS DESCRIPTION A - Received in fixative is one container labeled with the patient's name and designated skin and soft tissue right ischial region. The specimen consists of seven irregular fragments of light livingston soft tissue ranging in size from 1.5 to 10 cm in greatest dimension. The larger fragment contains ellipses of light livingston attached skin. Serial sections do not reveal mass lesions. Hardwood Floor Installer sections are submitted in two cassettes. B - Received in fixative is one container labeled with the patient's name and designated bone right ischial region. The specimen consists of multiple irregular fragments of livingston bone that in aggregate measure 2.6 x 2.6 x 0.2 cm. The specimen is totally submitted in one cassette after decalcification. / AM:nano 05/28/20 TC:2 CPT: 48591 x2, 78893
--- NOTE | 2020-05-27 10:49 | CASEMGMT ---
Social Work Note Wound Nurse updated this SW that pt would like TCU at discharge. SW updated wound nurse that TCU doesn't take pt's insurance ([place] secure). Wound Nurse updated pt and pt's . SW attempted to meet with pt. Pt currently off floor for surgery. SW will follow up with pt after surgery, likely tomorrow. Plan: SAMUEL Barraza SHAFT TENDER, MARINE RIGGER
--- NOTE | 2020-05-27 14:17 | OP.PCM_ITS ---
Report of Operation Date of Procedure: 05/27/20 Pre-Operative Diagnosis: 1. Right ischial pressure sore, Stage IV. 2. O steomyelitis. 3. Multiple sclerosis. Post-Operative Diagnosis: Same. Surgery/Procedure Performed:: 1. Excision right ischial pressure sore, Stage I V, with partial ostectomy for osteomyelitis. 2. Reconstruction with right hamstrings myocutaneous advancement flap. 3. Placement AmnioFill placental connective tissue powder (500 mg). Description of Surgical Findings:: The patient is a 65 year old F with a history of MS presents with a worsening right ischial pressure sore with increasing undermining. She has completed her antibiotics (Cefdinir and Flagyl) for operative cultures from 11/03/19 that showed Coag negative Staph, Clostridium group, Prevotella oralis, and Bacteroides thetaiotamicron in the soft tissue and Staphylococcus capitis, Bacteroides thetaiotamicron, and Clostridium group in the bone. Recent wound culture from 12/2019 was negative. She presents today for further operative excision with partial ostectomy for osteomyelitis. I want to make sure she is on the right antibiotic before proceeding with wound closure with a myocutaneous flap. She is currently using Dakin's dressing changes to help control a periwound rash. Patient was informed of the risks and complications of the procedure including alternatives to surgery. These were discussed with the patient personally. Patient voices understanding and wishes to proceed. IV Fluids - 1250 ml. Urine Output - 650 ml. I used AmnioFill Placental Connective Tissue Powder, (500 mg). Catalog Number - [id number]. Lot Number - [id number]. Expiration - January 27, 2025. I used Margarita absorbable hemostat, (I used 2 vials). Reference Number - [id number]. Lot Number - [id number]. Expiration - December 26, 2024. nut chopper: Dung Jarrett/ Type of Anesthesia:: General Specimen's removed: 1. Right ischial pressure sore, Stage IV, soft tissue to Pathology and Microbiology. 2. Right ischial pressure sore, Stage IV, bone to Pathology and Microbiology. Drains: Bhupendra x2. Estimated Blood Loss (mL): 150 ml. Fluids Replaced: 1900 ml (IV Fluids 1250 ml, Urine Output 650 ml). Description of Procedure: Patient was taken to OR in supine position and was placed under general anesthesia. She was then placed in the prone position. The right ischial area and right posterior thigh area were prepped and draped in the usual fashion. The operating table was placed in the darius-knife position. SCD's were placed for DVT prophylaxis. Perioperative antibiotics were given intravenously. I performed the surgery wearing an N95 mask and proper eye protection. Using a marking pen, I kortney out a triangular skin flap from the ischial ulcer down the posterior thigh to the level of the popliteal fossa. Using xylocaine with epinephrine, the markings and right ischial pressure sore were infiltrated. After waiting 5 minutes for the anesthetic to take effect, I excised the right ischial pressure sore down to the bone. The bone was exposed and using rongeurs, I performed a partial ostectomy in several areas to evaluate for osteomyelitis. A rasp was used to smooth out the bony edges. Half the soft tissue and half the bone was sent to Pathology for analysis to rule out carcinoma and to evaluate for osteomyelitis. Half the soft tissue and half the bone was sent to Microbiology for culture. A positive culture may necessitate antibiotic modification. At present, she is being treated perioperatively with Unasyn. I made longitudinal incisions on his posterior thigh both on the lateral side and on the medial side down toward the popliteal fossa about a [address] way down. Dissection was carried down to the hamstrings muscle. I dissected deep to the muscles where vascular perforators were noted and preserved. I excised the hamstring muscles at the level of the ischial bone. Some proximal perforators were ligated with 3-0 Vicryl suture. This loosened up the myocutaneous flap as I was able to advance it into the right ischial defect without tension. The sciatic nerve was seen and preserved as it did not hinder the advancement of the myocutaneous flap. The wounds were irrigated with 0.05% Irrisept chlorhexidine solution and followed with saline irrigation. Hemostasis was obtained with electrocautery. I placed AmnioFill placental conn ective tissue powder at the level of the ischial ulcer to aid in wound healing. I used 500 mg. I then sprayed Margarita absorbable hemostat into the wounds to minimize seroma formation. I used 2 vials. I placed 2 size 15 Bhupendra drains through separate stab incisions inferolaterally and inferomedially and secured to the skin with 3-0 Nylon sutures. I then closed the proximal aspect of the myocutaneous flap to the distal edge of the gluteus muscle with 2-0 Vicryl figure of eight interrupted sutures. This provided muscular coverage over the bone. The deep subcutaneous tissue was approximated with 2-0 Vicryl figure of eight interrupted sutures. The deep dermis and subcutaneous tissue was approximated with 2-0 Vicryl suture. The skin was approximated with 3-0 Nylon vertical mattress interrupted sutures and simple interrupted sutures. The medial and lateral sides of the myocutaneous flap were closed in multiple layers with 2-0 Vicryl figure of eight interrupted sutures at the level of the muscular fascia. The deep dermis and subcutaneous tissue was approximated with 2-0 Vicryl and 3-0 Monocryl interrupted sutures. The skin was approximated with 3- 0 V lock unidirectional barbed running subcuticular suture except for some of the medial proximal skin that was approximated with 3-0 Nylon vertical mattress sutures and simple interrupted sutures. The sutured areas were dressed with antibiotic ointment. The subcuticular areas with V lock were dressed with Histoacryl skin tissue adhesive. Xeroform gauze was applied to the suture lines followed by 4x4 gauze and Kerlix gauze and a compression SHARON wrap. Patient tolerated the procedure well and was sent to PACU in satisfactory condition. Patient will be sent upstairs for continued postop care. She will be on strict bedrest for 6 weeks. Will remove the drains in 2-3 weeks. The sutures will be removed in 3 weeks. Grafts/Implants Used: AmnioFill Placental Connective Tissue Powder. - Complications None. - Admit VTE Documentation VTE Present on Admission: No VTE Mechan Device Prophylaxis: SCD's VTE Pharm Prophylaxis ordered?: Yes Surgery Charges CPT - 04573-76 ICD-10 - L89.314, M86.651, G35 [id number] L89.314, M86.651, G35
[2020-05-27] MEDS: Lactated Ringers 1,000 ML 60 ML IV ×2 (14:35)
--- NOTE | 2020-05-27 14:56 | CASEMGMT ---
Social Work Note Pt's Shelia is at [facility] requesting to speak to this worker. Pt is still off floor for surgery. FAITH met with Shelia. Shelia asked if there was any way pt could go to TCU. FAITH explained that TCU doesn't take pt's insurance so the only way would be private pay. Shelia asked why [facility] takes pt's insurance but not TCU. FAITH explained that TCU is a long-term facility in the hospital but they have there own contracts with different insurance companies. FAITH provided Shelia with list of SNF that do accept pt's insurance. Shelia states pt has been to [facility] before and prefers for pt to return if pt not able to stay at TCU. FAITH explained that this worker would get initial referral sent out to [facility] today. Shelia states understanding. FAITH placed a call to Bita at [facility]. SW provided referral. Bita states that pt will need new COVID test. FAITH updated charge nurse that pt will need new COVID test for SNF. FAITH faxed referral. Plan: [facility] pending acceptance and pre-cert Edelmira Barraza MULTICULTURAL INTERNSHIP, WATER CONSERVATIONIST
[2020-05-27] MEDS: Nitrofurantoin Macrocrystals 100 MG Capsule PO (17:59)
[2020-05-27] MEDS: Oxybutynin 5 MG Tablet PO ×2 (17:59→22:42)
[2020-05-27] MEDS: Metoprolol Tartrate 25 MG Tablet PO ×2 (17:59→22:42)
[2020-05-27] MEDS: Cholestyramine/Sucrose 4 GM/PACKET 1.3 GM PO (18:01)
[2020-05-27] MEDS: Mupirocin Ointment 22gm Tube 1 APPLIC (18:07)
[2020-05-27] MEDS: Fluconazole 100 MG Tablet 200 MG PO (18:52)
[2020-05-27] MEDS: Baclofen 10 MG Tablet 20 MG PO (22:41)
[2020-05-27] MEDS: Acetaminophen 325 MG Tablet 650 MG PO (22:44)
[2020-05-27] MEDS: Nystatin Powder 15gm Bottle 1 APPLIC TOPICAL (22:45)
[2020-05-27] MEDS: ACETIC ACID 1,000 ML IRRIG.SOLN 60 ML IR (22:45)
[2020-05-28] VITALS (7 sets, daily range): BP systolic 109–146; BP diastolic 66–76; PULSE 85–106; RESP 16–18; TEMP 36.7–37.2; O2SAT 97–98; BMI 28.0
[2020-05-28] MEDS: Lactated Ringers 1,000 ML 60 ML IV (05:10)
[2020-05-28] MEDS: 0.9% Saline Lock 10 ML Syringe IV (05:11)
[2020-05-28] MEDS: Enoxaparin 40 MG/0.4 ML Syringe SC (06:29)
[2020-05-28 06:42] LABS: Hematocrit 36.4 % (37-47); Hemoglobin 11.7 g/dL (12.0-15.0); Mean Corp Hgb Conc 32.1 g/dL (32-36); Mean Corpuscular Hgb 27.3 pg (27.0-32.0); Mean Corpuscular Volume 84.8 fL (81-99); Mean Platelet Vol. 10.4 fl (6.2-12.0); Platelet Count 258 K/mm3 (150-450); RBC Distribution Width CV 14.6 % (11.6-14.6); Red Blood Count 4.29 M/mm3 (4.2-5.4); White Blood Count 15.6 K/mm3 (4.4-11.0)
[2020-05-28 06:46] LABS: Anion Gap 5 (5-15); BUN 13 mg/dL (7-18); BUN/Creat Ratio 43.8 RATIO (10-20); Calcium,Total 8.4 mg/dL (8.5-10.1); Chloride 108 mmol/L (98-107); EST Glomerular Filtration Rate 240 mL/min (>60); Est Glom Filt Rate - Afr Amer 290 mL/min (>60); Estimated Creatinine Clearance 181.81 ml/min; Glucose 108 mg/dL (74-106); Potassium 3.6 mmol/L (3.5-5.1); Sodium Level 140 mmol/L (136-145)
--- NOTE | 2020-05-28 08:31 | NURSING ---
Pt is POD#1 reconstruction with right hamstring myocutaneous advancement flap per Dr Dougherty. plan to leave dressing D&I until Dr Dougherty wants the dressing changed. typically leaves in place 1-2 days.
[2020-05-28 09:09] LABS: Probe Check PASS; Specimen Processing Control PASS
[2020-05-28] MEDS: Docusate Sodium 100 MG Capsule PO (09:35)
[2020-05-28] MEDS: Nystatin Powder 15gm Bottle 1 APPLIC TOPICAL ×2 (09:37→22:45)
[2020-05-28] MEDS: Nystatin Ointment 1 APPLIC TOPICAL (09:38)
--- NOTE | 2020-05-28 09:46 | CASEMGMT ---
Addendum entered by Edelmira Barraza 05/28/20 15:32: SW received call from Bita at [facility]. Bita states she will need to know IV antibiotics that pt will be on. FAITH updated Bita that this worker has tried to call the physician with no answer and physician hasn't been in yet today. Bita then states pt's will not be able to visit pt while at SNF so pt will be on bowel medications to help her go and her will not be able to assist. SW in to update pt on above information. Pt asked what she is doing to do if [facility] is not able to accept. SW explained that a new referral would need to be sent to a different SNF. SW updated pt that this worker will be back in once this worker knows the answer from [facility]. Pt states understanding. Addendum entered by Edelmira Barraza 05/28/20 14:59: FAITH attempted to call physician, no answer, voicemail is full, unable to leave message. FAITH placed another call to Bita at [facility] and left message regarding referral. Pre-cert cannot be submitted until PT/OT works with pt and until it is confirmed with physician what pt will need at discharge. Addendum entered by Edelmira Barraza 05/28/20 11:47: FAITH placed a call to Bita at [facility] and left message regarding referral. FAITH updated Bita that this worker is still waiting to speak with physician and also asked Bita about transportation to appointments at discharge. Original Note: Social Work Note FAITH met with pt to confirm discharge plans. FAITH introduced self and role at [facility]. Pt is alert and orientated x3. FAITH updated pt that TCU doesn't accept pt's insurance and pt's wanted this worker to send referral to [facility]. Pt agreeable to [facility]. Pt states I really just wanted to stay here because I want to do this right. FAITH offered support to pt. Pt states that transportation will need to be addressed with [facility] as well as pt is going to bed bound for 6 weeks and will not be able to be transported via wheelchair van and her will not be able to transport. FAITH informed pt that this worker is waiting for Dr. Dougherty to determine what pt's exact needs will be at discharge (IV antibiotics, wound care, etc). SW informed pt that once this worker hears from Nicko Soto and Dr. Dougherty this worker will ask about transportation. Pt states understanding. Plan: [facility] pending acceptance and pre-cert. SW waiting to speak with physician to determine pt's needs at discharge Edelmira Barraza HAT BLOCKER, UNION CARPENTER
[2020-05-28] MEDS: Magnesium Hydroxide 30 ML UDC PO (09:48)
[2020-05-28] MEDS: Oxybutynin 5 MG Tablet PO ×2 (09:49→22:44)
[2020-05-28] MEDS: Acetaminophen 325 MG Tablet 650 MG PO (09:49)
[2020-05-28] MEDS: Baclofen 10 MG Tablet 20 MG PO ×2 (09:49→23:00)
[2020-05-28] MEDS: Metoprolol Tartrate 25 MG Tablet PO ×2 (09:59→22:44)
--- NOTE | 2020-05-28 10:40 | PCM.PN.SRG ---
Subjective: Post op day #1 Objective: Patient resting in bed. - Physical Exam Vitals/I&O's: Vital Signs Temp Pulse Resp BP Pulse Ox 98.0 F 103 H 18 146/75 H 98 05/28/20 09:20 05/28/20 09:59 05/28/20 09:20 05/28/20 09:20 05/28/20 09:20 Oxygen Delivery Method Room Air Weight: 176 lb 9.444 oz Body Mass Index (BMI) 27.6 Intake and Output for Last 24 Hours 05/26/20 05/27/20 05/28/20 23:59 23:59 23:59 Intake Total 1080 / 1380 2670 / 2670 1383 / 1383 Output Total 1500 / 2900 5012 / 5012 1540 / 1540 Balance -420 / -1520 -2342 / -2342 -157 / -157 General: Alert, Oriented x3, Cooperative HEENT: Atraumatic Oral: Moist Mucosa Lungs: Clear to auscultation, Normal air movement Cardiovascular: Regular rate, Regular Rhythm Extremities: Edema - +2 edema Skin: Ulcer/ Wound - Originial dressing intact with SHARON wrap for compression. Dressing is dry and intact, no sign of hematoma. Ba drains intact and draining serosanguineous drainage. Musculoskeletal: No Tenderness to Palpation of Joints or Extremities Neurological: Neuro grossly intact Psych/Mental Status: Normal Affect, Appropriate Microbiology Past 72 Hours 05/27/20 Unknown Tissue - Bone Gram Stain - Final 05/27/20 Unknown Tissue - Bone Wound Culture - Preliminary No growth-Final to follow 05/27/20 Unknown Tissue - Ischium Gram Stain - Final 05/27/20 Unknown Tissue - Ischium Wound Culture - Preliminary No growth-Final to follow Laboratory Results 05/27/20 20:04: COVID-19 ([facility]) Negative 05/27/20 20:04: COVID-19 ([facility]) Cancelled 05/28/20 06:00: WBC 15.6 H, RBC 4.29, Hgb 11.7 L, Hct 36.4 L, MCV 84.8, MCH 27.3, MCHC 32.1, RDW Std Deviation 45.0 H, RDW Coeff of Homer 14.6, Plt Count 258, MPV 10.4 05/28/20 06:00: Sodium 140, Potassium 3.6, Chloride 108 H, Carbon Dioxide 27.0, Anion Gap 5, BUN 13, Creatinine 0.30 L, Estim Creat Clear Calc 181.81, Est GFR (MDRD) Af Amer 290, Est GFR (MDRD) Non-Af 240, BUN/Creatinine Ratio 43.8 H, Glucose 108 H, Calcium 8.4 L Current Medications Acetaminophen (Tylenol) 650 mg PO Q6H PRN PRN PRN Reason: fever/Noncardiac pain(4-09/07) Last Admin: 05/28/20 09:49 Dose: 650 mg Documented by: Acetic Acid (Acetic Acid) 60 ml IR QHS [facility] Last Admin: 05/27/20 22:45 Dose: 60 ml Documented by: Baclofen (Lioresal) 20 mg PO Q8H PRN PRN PRN Reason: MUSCLE SPASMS Last Admin: 05/28/20 09:49 Dose: 20 mg Documented by: Cholestyramine Resin (Questran 4gm Packet) 1.3 gm PO DAILY [facility] Last Admin: 05/27/20 18:01 Dose: 1.3 gm Documented by: Diazepam (Valium) 5 mg PO 4X/DAY PRN PRN PRN Reason: SPASMS Docusate Sodium (Colace) 100 mg PO BID [facility] Last Admin: 05/28/20 09:35 Dose: 100 mg Documented by: Enoxaparin Sodium (Lovenox) 40 mg SC DAILY@0600 [facility] Last Admin: 05/28/20 06:29 Dose: 40 mg Documented by: Fluconazole (Diflucan) 200 mg PO Mo@1000 [facility] Last Admin: 05/27/20 18:52 Dose: 200 mg Documented by: Ampicillin Sodium/Sulbactam (Sodium 3 gm/ Sodium Chloride) 112 mls @ 150 mls/hr IV Q6 [facility] Last Infusion: 05/28/20 05:58 Dose: Infused Documented by: Lactated Ringer's () 1,000 mls @ 60 mls/hr IV .[id number] [facility] Last Infusion: 05/28/20 06:36 Dose: 60 mls/hr Documented by: Sodium Chloride () 250 mls @ 15 mls/hr IV .[id number] PRN PRN Reason: Saline Flush Letrozole (Femara) 2.5 mg PO DAILY [facility] Last Admin: 05/28/20 09:36 Dose: 2.5 mg Documented by: Magnesium Hydroxide (Milk Of Magnesia) 30 ml PO BID [facility] Last Admin: 05/28/20 09:48 Dose: 30 ml Documented by: Metoprolol Tartrate (Lopressor (Beta David)) 25 mg PO BID [facility] Last Admin: 05/28/20 09:59 Dose: 25 mg Documented by: Nitrofurantoin [facility]rocrystals ([facility]robid) [facility] Last Admin: 05/27/20 17:59 Dose: 100 mg Documented by: Nutritional Formula (Domingo - [place] Flavor) 1 packet PO BIDCM [facility] Last Admin: 05/28/20 09:35 Dose: 1 packet Documented by: Nutritional Formula (Lactose Free) (Ensure Enlive) 120 ml PO 4X/DAY [facility] Last Admin: 05/28/20 09:34 Dose: 120 ml Documented by: Nystatin (Mycostatin) 1 applic TOPICAL BID [facility] Last Admin: 05/28/20 09:38 Dose: 1 applicatio Documented by: Nystatin (Mycostatin Powder) 1 applic TOPICAL BID [facility]; Protocol Last Admin: 05/28/20 09:37 Dose: 1 applicatio Documented by: Oxybutynin Chloride (Ditropan) 5 mg PO BID [facility] Last Admin: 05/28/20 09:49 Dose: 5 mg Documented by: Oxycodone HCl (Oxyir) 10 mg PO Q4H PRN PRN PRN Reason: Pain Score 6-10/10 Sodium Chloride () 10 - 40 ml IV UD PRN PRN Reason: SALINE FLUSH Last Admin: 05/28/20 05:11 Dose: 20 ml Documented by: Medical Necessity - Tobacco Use Smoking Status: Never smoker Assessment/Plan All Active Problems Decubitus ulcer of coccygeal region, stage 2 (Acute) Pressure injury, stage 4, with gangrene (Acute) History of breast cancer (Acute) Leukocytosis (Acute) Sepsis (Acute) ASSESSMENT 1. Right ischial pressure sore, Stage IV. 2. Osteomyelitis. 3. Multiple sclerosis. 1. Excision right ischial pressure sore, Stage IV, with partial ostectomy for osteomyelitis. 2. Reconstruction with right hamstrings myocutaneous advancement flap. 3. Placement AmnioFill placental connective tissue powder (500 mg). Surgical dressing intact. No signs of active bleeding or hematoma. Ba drains draining serosanguineous drainage. SHARON wrap dry and intact Preliminary surgical tissue culture - no growth Preliminary surgical bone culture - no growth Patient is receiving Unasyn Encourage nutritional intake- Patient receiving Domingo BID and Ensure Enlive 4x/day
[2020-05-28] MEDS: Nitrofurantoin Macrocrystals 100 MG Capsule PO (10:45)
[2020-05-28] MEDS: Cholestyramine/Sucrose 4 GM/PACKET 1.3 GM PO (10:45)
[2020-05-28] MEDS: ACETIC ACID 1,000 ML IRRIG.SOLN 60 ML IR (22:43)
[2020-05-29] VITALS (7 sets, daily range): BP systolic 107–120; BP diastolic 53–67; PULSE 75–103; RESP 16–18; TEMP 36.7–37.3; O2SAT 94–98
[2020-05-29] MEDS: Lactated Ringers 1,000 ML 60 ML IV (00:55)
[2020-05-29] MEDS: Enoxaparin 40 MG/0.4 ML Syringe SC (05:56)
[2020-05-29] MEDS: Cholestyramine/Sucrose 4 GM/PACKET 1.3 GM PO (10:52)
[2020-05-29] MEDS: Nystatin Powder 15gm Bottle 1 APPLIC TOPICAL ×2 (10:52→21:53)
[2020-05-29] MEDS: Nystatin Ointment 1 APPLIC TOPICAL ×2 (10:53→21:53)
[2020-05-29] MEDS: Nitrofurantoin Macrocrystals 100 MG Capsule PO (10:54)
[2020-05-29] MEDS: Metoprolol Tartrate 25 MG Tablet PO ×2 (10:55→21:41)
[2020-05-29] MEDS: Oxybutynin 5 MG Tablet PO ×2 (10:55→21:41)
[2020-05-29] MEDS: Baclofen 10 MG Tablet 20 MG PO ×2 (11:01→21:51)
--- NOTE | 2020-05-29 15:06 | NURSING ---
wound photo: right posterior thigh/ischium
--- NOTE | 2020-05-29 15:22 | CASEMGMT ---
Social Work Note Physician updated this worker that pt will be on six weeks of IV unasyn. Physician also asked if pt is able to be digital disimpaction at SNF if he writes order for it. SW placed a call to Bita at [facility] and left message updating her on Iv antibiotic and if pt is able to get digital disimpaction at SNF. SW waiting for call back. Plan: [facility] pending acceptance and pre-cert Edelmira Barraza PERSONAL INJURY LAW SPECIALIST, DEPUTY DIRECTOR OF PUBLIC WORKS
--- NOTE | 2020-05-29 17:19 | PN.SURG_ITS ---
Subjective: post op day #2 - Physical Exam Vitals/I&O's: Vital Signs Temp Pulse Resp BP Pulse Ox 99.2 F H 100 18 120/65 98 05/29/20 17:07 05/29/20 17:07 05/29/20 17:07 05/29/20 17:07 05/29/20 17:07 Oxygen Delivery Method Room Air Weight: 176 lb 9.444 oz Body Mass Index (BMI) 27.6 Intake and Output for Last 24 Hours 05/27/20 05/28/20 05/29/20 23:59 23:59 23:59 Intake Total 2670 / 2670 2228 / 2228 1473 / 1473 Output Total 5012 / 5012 3740 / 5170 3098 / 3098 Balance -2342 / -2342 -1512 / -2942 -1625 / -1625 General: Alert, Oriented x3, Cooperative HEENT: Atraumatic Oral: Moist Mucosa Lungs: Normal air movement Cardiovascular: Regular rate Extremities: Capillary Refill Less than 3 Seconds, Peripheral Pulses Normal Skin: Incision - Operative dressing changed. Right posterior thigh and buttocks incision dry and intact. Sutures intact. Ba drain draining serosanguineous drainage. Dry gauze dressing applied. Fish wrap for compression to right thigh. Musculoskeletal: No Tenderness to Palpation of Joints or Extremities Neurological: Neuro grossly intact Psych/Mental Status: Normal Affect, Appropriate Microbiology Past 72 Hours 05/27/20 Unknown Tissue - Bone Gram Stain - Final 05/27/20 Unknown Tissue - Bone Wound Culture - Preliminary No growth-Final to follow 05/27/20 Unknown Tissue - Bone Anaerobic Culture - Preliminary Checking for anaerobes, further studies to follow. 05/27/20 Unknown Tissue - Ischium Gram Stain - Final 05/27/20 Unknown Tissue - Ischium Wound Culture - Preliminary No growth-Final to follow 05/27/20 Unknown Tissue - Ischium Anaerobic Culture - Preliminary Checking for anaerobes, further studies to follow. Current Medications Acetaminophen (Tylenol) 650 mg PO Q6H PRN PRN PRN Reason: fever/Noncardiac pain(4-09/07) Last Admin: 05/28/20 09:49 Dose: 650 mg Documented by: Acetic Acid (Acetic Acid) 60 ml IR QHS [facility] Last Admin: 05/28/20 22:43 Dose: 60 ml Documented by: Baclofen (Lioresal) 20 mg PO Q8H PRN PRN PRN Reason: MUSCLE SPASMS Last Admin: 05/29/20 11:01 Dose: 20 mg Documented by: Cholestyramine Resin (Questran 4gm Packet) 1.3 gm PO DAILY [facility] Last Admin: 05/29/20 10:52 Dose: 1.3 gm Documented by: Diazepam (Valium) 5 mg PO 4X/DAY PRN PRN PRN Reason: SPASMS Docusate Sodium (Colace) 100 mg PO BID [facility] Last Admin: 05/29/20 10:55 Dose: Not Given Documented by: Enoxaparin Sodium (Lovenox) 40 mg SC DAILY@0600 [facility] Last Admin: 05/29/20 05:56 Dose: 40 mg Documented by: Fluconazole (Diflucan) 200 mg PO Mo@1000 [facility] Last Admin: 05/27/20 18:52 Dose: 200 mg Documented by: Lactated Ringer's () 1,000 mls @ 60 mls/hr IV .[id number] [facility] Last Infusion: 05/29/20 11:51 Dose: 60 mls/hr Documented by: Sodium Chloride () 250 mls @ 15 mls/hr IV .[id number] PRN PRN Reason: Saline Flush Ampicillin Sodium/Sulbactam Sodium 1,500 mg/ Sodium Chloride 50 mls @ 100 mls/ hr IV Q8 [facility] Letrozole (Femara) 2.5 mg PO DAILY [facility] Last Admin: 05/29/20 10:53 Dose: 2.5 mg Documented by: Magnesium Hydroxide (Milk Of Magnesia) 30 ml PO BID [facility] Last Admin: 05/29/20 10:55 Dose: Not Given Documented by: Metoprolol Tartrate (Lopressor (Beta David)) 25 mg PO BID [facility] Last Admin: 05/29/20 10:55 Dose: 25 mg Documented by: Nitrofurantoin Macrocrystals ([facility]robid) [facility] Last Admin: 05/29/20 10:54 Dose: 100 mg Documented by: Nutritional Formula (Domingo - [place] Flavor) 1 packet PO BIDCM [facility] Last Admin: 05/29/20 17:00 Dose: 1 packet Documented by: Nutritional Formula (Lactose Free) (Ensure Enlive) 120 ml PO 4X/DAY [facility] Last Admin: 05/29/20 17:00 Dose: 120 ml Documented by: Nystatin (Mycostatin) 1 applic TOPICAL BID [facility] Last Admin: 05/29/20 10:53 Dose: 1 applicatio Documented by: Nystatin (Mycostatin Powder) 1 applic TOPICAL BID [facility]; Protocol Last Admin: 05/29/20 10:52 Dose: 1 applicatio Documented by: Oxybutynin Chloride (Ditropan) 5 mg PO BID [facility] Last Admin: 05/29/20 10:55 Dose: 5 mg Documented by: Oxycodone HCl (Oxyir) 10 mg PO Q4H PRN PRN PRN Reason: Pain Score 6-10/10 Sodium Chloride () 10 - 40 ml IV UD PRN PRN Reason: SALINE FLUSH Last Admin: 05/28/20 05:11 Dose: 20 ml Documented by: Medical Necessity - Tobacco Use Smoking Status: Never smoker Assessment/Plan All Active Problems Decubitus ulcer of coccygeal region, stage 2 (Acute) Pressure injury, stage 4, with gangrene (Acute) History of breast cancer (Acute) Leukocytosis (Acute) Sepsis (Acute) ASSESSMENT 1. Right ischial pressure sore, Stage IV. 2. Osteomyelitis. 3. Multiple sclerosis. 1. Excision right ischial pressure sore, Stage IV, with partial ostectomy for osteomyelitis. 2. Reconstruction with right hamstrings myocutaneous advancement flap. 3. Placement AmnioFill placental connective tissue powder (500 mg). Surgical dressing removed. No signs of active bleeding or hematoma. Ba drains draining serosanguineous drainage. Flap is pink. Dry dressing applied FISH wrap for compression to right thigh. Will order Mupirocin ointment to the suture line daily. Preliminary surgical tissue culture - no growth Preliminary surgical bone culture - no growth Patient is receiving Unasyn Encourage nutritional intake- Patient receiving Domingo BID and Ensure Enlive 4x/day Patient concerned about not being able to have BM without digital stimulation. Will order for nursing to do so she can have BM. Considering discharging to a detention facility over the next several days.
[2020-05-29] MEDS: Docusate Sodium 100 MG Capsule PO (21:40)
[2020-05-29] MEDS: Magnesium Hydroxide 30 ML UDC PO (21:51)
[2020-05-29] MEDS: ACETIC ACID 1,000 ML IRRIG.SOLN 60 ML IR (21:52)
[2020-05-30] VITALS (7 sets, daily range): BP systolic 93–119; BP diastolic 51–66; PULSE 92–109; RESP 16; TEMP 37–37.5; O2SAT 93–99
--- NOTE | 2020-05-30 00:29 | NURSING ---
PT DIGITALLY STIMULATED WITH NO RESULT PER PT REQUEST; MOM, COLACE GIVEN.
[2020-05-30] MEDS: Lactated Ringers 1,000 ML 60 ML IV (01:58)
[2020-05-30] MEDS: Enoxaparin 40 MG/0.4 ML Syringe SC (04:49)
[2020-05-30] MEDS: Nitrofurantoin Macrocrystals 100 MG Capsule PO (08:34)
[2020-05-30] MEDS: Mupirocin Ointment 22gm Tube 1 APPLIC TOPICAL (09:30)
--- NOTE | 2020-05-30 09:47 | CASEMGMT ---
Addendum entered by Edelmira Barraza 05/30/20 11:46: Physician states pt is getting PICC line placed today and could be ready for discharge tomorrow if SNF is lined up. SW updated physician that [facility] is checking with corporate and if they can accept they will then submit for pre-cert. If pre-cert were to be obtained by tomorrow, pt would be able to discharge but it depends when pre-cert is obtained. Physician states understanding. Original Note: Social Work Note SW placed a call to Bita at [facility]. Bita states she received updated clinicals yesterday and about digital disimpaction and her nursing staff is reviewing the information. Bita states she received call from pt's Shelia regarding the digital disimpaction as well and she is checking with [facility]. FAITH asked Bita to let this worker know when they finally decide if they are able to accept pt or not. Plan: [facility] pending acceptance and pre-cert Edelmira Barraza CHURCH OFFICIAL, EDUCATION PROFESSOR
[2020-05-30] MEDS: Metoprolol Tartrate 25 MG Tablet PO ×2 (09:52→22:36)
[2020-05-30] MEDS: Oxybutynin 5 MG Tablet PO ×2 (09:53→22:26)
[2020-05-30] MEDS: Cholestyramine/Sucrose 4 GM/PACKET 1.3 GM PO (09:53)
[2020-05-30] MEDS: Baclofen 10 MG Tablet 20 MG PO ×2 (09:57→22:23)
[2020-05-30] MEDS: Nystatin Ointment 1 APPLIC TOPICAL ×2 (10:01→22:28)
[2020-05-30] MEDS: Nystatin Powder 15gm Bottle 1 APPLIC TOPICAL ×2 (10:02→22:27)
--- NOTE | 2020-05-30 13:21 | CASEMGMT ---
Addendum entered by Edelmira Barraza 05/30/20 15:24: SW received message from Elizabeth at [facility] stating they are not able to accept pt at this time. FAITH placed another call to Bita at [facility] to ask about referral. Bita states that the clinical team should've called this worker and she will check with the clinical team regarding referral. Bita states she will call this worker back. Addendum entered by Edelmira Barraza 05/30/20 14:08: SW in to speak with pt. SW updated pt that this worker still hasn't heard from [facility] and asked pt for another choice for SNF in the event [facility] is not able to accept pt. Pt states next choice is [facility]. FAITH placed a call to Elizabeth at [facility] and provided referral. Elizabeth willing to review referral. FAITH faxed referral to [facility]. Addendum entered by Edelmira Barraza 05/30/20 13:23: Correction, FAITH placed a call to Bita at [facility] (Not [facility]). Original Note: Social Work Note FAITH placed a call to Bita at [facility] and left message regarding referral and to let this worker know soon if they can accept or not because if they are not able to accept, this worker needs to work on finding a new SNF for pt. SW waiting for call back. Edelmira Barraza SUPERVISOR ESTERS AND EMULSIFIERS, ROD GREASER
--- NOTE | 2020-05-30 16:23 | CASEMGMT ---
Addendum entered by Edelmira Barraza 05/30/20 17:04: FAITH received call from Yoselin at [facility] stating the only concern they have is the digital stimulation. Yoselin states that when pt was at [facility] before pt's Shelia was able to come in to the facility and do the digital stimulation himself but due to COVID, no visitors are permitted in SNF at this time. Yoselin states that it is a liability if the RN were to digital stimulate the pt as it could perforate the bowel so it is a policy of [facility] that they do not do the digital stimulation. Yoselin states that they are able to accept but only if pt were to get on medications to let her go to the bathroom and have a daily bowel movement without the digital stimulation. FAITH took phone into pt's room and put Yoselin on speaker phone so she could explain their policy to pt and Shelia. [place] and pt agreeable to physician adjusting medications to see if pt is able to get on medications that allow her to have daily bowel movement without digital stimulation. FAITH updated Dr. Dougherty of this. FAITH explained that it may be difficult to get pt to any SNF with digital stimulation as it is probably going to be a liability anywhere. Dr. Dougherty states he will adjust pt's medications. FAITH explained that [facility] can accept her pending pre-cert and pending pt gets on medications. Dr. Dougherty states that if medications are not successful for pt, he will admit pt back to [facility] for colostomy. DR. Dougherty willing to adjust medications for bowel movements. SW in to update pt and Shelia that Dr. Dougherty will adjust pt's medications this weekend. Pt will likely be at [facility] through the weekend for medication adjustment and also pre-cert is still needed. Plan: SNF. Pt will need to get medications adjusted as it is likely no SNF will accept pt with digital stimulation due to liability issues. Pre-cert is still needed as well. Original Note: Social Work Note FAITH placed another call to Bita at [email or web address] and asked again if they are able to accept pt or not. FAITH has attempted to call Bita at [email or web address] multiple times a day today and hasn't received a yes or no answer yet. FAITH went ahead and placed Green sheet, Transport form, HENS, and COVID screening tool in the event pre-cert is obtained through [email or web address]. SW in to update pt and pt's Shelia present in room. SW updated pt and Shelia that this worker has tried multiple times today to get an answer from [email or web address] and this worker still doesn't have an answer yet. Shelia states he knows someone who works at [employer] and he will call them. FAITH also updated pt and Shelia that [facility] is not able to accept either. Edelmira Barraza VIDEOTAPE RECORDING ENGINEER, COMMERCIAL OR INSTITUTIONAL CLEANER
--- NOTE | 2020-05-30 19:59 | PCM.PN.SRG ---
Subjective: Postop #3 Patient is resting comfortably. - Physical Exam Vitals/I&O's: Vital Signs Temp Pulse Resp BP Pulse Ox 98.8 F 96 16 109/57 L 99 05/30/20 14:42 05/30/20 14:42 05/30/20 14:42 05/30/20 14:42 05/30/20 14:42 Oxygen Delivery Method Room Air Weight: 176 lb 9.444 oz Body Mass Index (BMI) 27.6 Intake and Output for Last 24 Hours 05/28/20 05/29/20 05/30/20 23:59 23:59 23:59 Intake Total 2228 / 2228 1912 / 2452 3183 / 3183 Output Total 3740 / 5170 3773 / 4773 5120 / 5120 Balance -1512 / -2942 -1861 / -2321 -193 / -193 Drainage 123 ml yesterday. General: Alert, Oriented x3 HEENT: PERRLA, EOMI Oral: Moist Mucosa Neck: Supple Abdomen: Soft, Non-Distended Skin: Incision - right ischial incision dry and intact. Flap is soft and healing satisfactory. No clinical evidence of hematoma. Neurological: Cranial nerves II-XII grossly intact Psych/Mental Status: Normal Affect, Appropriate Microbiology Past 72 Hours 05/27/20 Unknown Tissue - Ischium Gram Stain - Final 05/27/20 Unknown Tissue - Ischium Wound Culture - Preliminary Gram positive mary 05/27/20 Unknown Tissue - Ischium Anaerobic Culture - Final Anaerobic cocci 05/27/20 Unknown Tissue - Bone Gram Stain - Final 05/27/20 Unknown Tissue - Bone Wound Culture - Final No growth aerobically. 05/27/20 Unknown Tissue - Bone Anaerobic Culture - Final Anaerobic cocci Pathology - pending. Current Medications Acetaminophen (Tylenol) 650 mg PO Q6H PRN PRN PRN Reason: fever/Noncardiac pain(4-09/07) Last Admin: 05/28/20 09:49 Dose: 650 mg Documented by: Acetic Acid (Acetic Acid) 60 ml IR QHS [facility] Last Admin: 05/29/20 21:52 Dose: 60 ml Documented by: Baclofen (Lioresal) 20 mg PO Q8H PRN PRN PRN Reason: MUSCLE SPASMS Last Admin: 05/30/20 09:57 Dose: 20 mg Documented by: Cholestyramine Resin (Questran 4gm Packet) 1.3 gm PO DAILY [facility] Last Admin: 05/30/20 09:53 Dose: 1.3 gm Documented by: Diazepam (Valium) 5 mg PO 4X/DAY PRN PRN PRN Reason: SPASMS Docusate Sodium (Colace) 100 mg PO BID [facility] Last Admin: 05/30/20 09:52 Dose: Not Given Documented by: Enoxaparin Sodium (Lovenox) 40 mg SC DAILY@0600 [facility] Last Admin: 05/30/20 04:49 Dose: 40 mg Documented by: Fluconazole (Diflucan) 200 mg PO Mo@1000 [facility] Last Admin: 05/27/20 18:52 Dose: 200 mg Documented by: Lactated Ringer's () 1,000 mls @ 60 mls/hr IV .[id number] [facility] Last Infusion: 05/30/20 15:21 Dose: 60 mls/hr Documented by: Sodium Chloride () 250 mls @ 15 mls/hr IV .[id number] PRN PRN Reason: Saline Flush Ampicillin Sodium/Sulbactam Sodium 1,500 mg/ Sodium Chloride 50 mls @ 100 mls/hr IV Q8 [facility] Last Infusion: 05/30/20 15:22 Dose: Infused Documented by: Lactobacillus Acidophilus (Acidophilus) 1 tablet PO 4X/DAY [facility] Last Admin: 05/30/20 16:50 Dose: 1 tablet Documented by: Letrozole (Femara) 2.5 mg PO DAILY [facility] Last Admin: 05/30/20 09:54 Dose: 2.5 mg Documented by: Magnesium Hydroxide (Milk Of Magnesia) 30 ml PO BID [facility] Last Admin: 05/30/20 09:55 Dose: Not Given Documented by: Metoprolol Tartrate (Lopressor (Beta David)) 25 mg PO BID [facility] Last Admin: 05/30/20 09:52 Dose: 25 mg Documented by: Mupirocin (Bactroban) 1 applic TOPICAL DAILY [facility]; Protocol Last Admin: 05/30/20 09:30 Dose: 1 applicatio Documented by: Nitrofurantoin [facility]rocrystals ([facility]bid) [facility] Last Admin: 05/30/20 08:34 Dose: 100 mg Documented by: Nutritional Formula (Domingo - [place] Flavor) [facility] Last Admin: 05/30/20 16:50 Dose: 1 packet Documented by: Nutritional Formula (Lactose Free) (Ensure Enlive) 120 ml PO 4X/DAY [facility] Last Admin: 05/30/20 16:51 Dose: 120 ml Documented by: Nystatin (Mycostatin) 1 applic TOPICAL BID [facility] Last Admin: 05/30/20 10:01 Dose: 1 applicatio Documented by: Nystatin (Mycostatin Powder) 1 applic TOPICAL BID [facility]; Protocol Last Admin: 05/30/20 10:02 Dose: 1 applicatio Documented by: Oxybutynin Chloride (Ditropan) 5 mg PO BID [facility] Last Admin: 05/30/20 09:53 Dose: 5 mg Documented by: Oxycodone HCl (Oxyir) 10 mg PO Q4H PRN PRN PRN Reason: Pain Score 6-10/10 Sodium Chloride () 10 - 40 ml IV UD PRN PRN Reason: SALINE FLUSH Last Admin: 05/28/20 05:11 Dose: 20 ml Documented by: Medical Necessity - Tobacco Use Smoking Status: Never smoker Assessment/Plan All Active Problems Decubitus ulcer of coccygeal region, stage 2 (Acute) Pressure injury, stage 4, with gangrene (Acute) History of breast cancer (Acute) Leukocytosis (Acute) Sepsis (Acute) 1. Right ischial pressure sore, Stage IV. 2. Chronic osteomyelitis. 3. Multiple sclerosis. 4. s/p excision right ischial pressure sore, Stage IV, with partial ostectomy for osteomyelitis and reconstruction with right hamstrings myocutaneous advancement flap ajnd placement AmnioFill placental connective tissue powder (500 mg). Incision is dry and intact. Flap is soft and healing satisfactory. No clinical evidence of hematoma. Continue dry dressings daily with antibiotic ointment. Operative culture shows Gram positive mary and Anaerobic cocci in the soft tissue and Anaerobic cocci in the bone. Pathology is pending. She is currently on Unasyn. Will order PICC line for termite treater helper IV antibiotics. Prealbumin was 16.2. Encourage nutritional supplementation with protein to help the healing process. She will need to be on 6 weeks of bedrest on a specialty bed (low air loss bed). ECF evaluation in process. Awaiting a precert. 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 However, at the ECF her will not be allowed to see her. Will check with the ECF to see if the nursing staff can proceed with the daily digital stimulation. After discharge, [facility]3 [facility] for suture removal and removal of the drains.
[2020-05-30] MEDS: ACETIC ACID 1,000 ML IRRIG.SOLN 60 ML IR (22:24)
[2020-05-30] MEDS: Docusate Sodium 100 MG Capsule PO (22:38)
[2020-05-30] MEDS: Magnesium Hydroxide 30 ML UDC PO (22:53)
[2020-05-31] VITALS (8 sets, daily range): BP systolic 92–121; BP diastolic 55–76; PULSE 89–109; RESP 16–18; TEMP 36.7–37.2; O2SAT 95–100
[2020-05-31] MEDS: Enoxaparin 40 MG/0.4 ML Syringe SC (06:10)
[2020-05-31] MEDS: Lactated Ringers 1,000 ML 60 ML IV (09:43)
[2020-05-31] MEDS: Nitrofurantoin Macrocrystals 100 MG Capsule PO (09:44)
[2020-05-31] MEDS: Oxybutynin 5 MG Tablet PO ×2 (09:45→22:15)
[2020-05-31] MEDS: Nystatin Powder 15gm Bottle 1 APPLIC TOPICAL ×2 (09:46→22:36)
[2020-05-31] MEDS: Nystatin Ointment 1 APPLIC TOPICAL (09:46)
[2020-05-31] MEDS: Metoprolol Tartrate 25 MG Tablet PO ×2 (09:47→22:15)
[2020-05-31] MEDS: Baclofen 10 MG Tablet 20 MG PO ×2 (09:54→22:33)
[2020-05-31] MEDS: Cholestyramine/Sucrose 4 GM/PACKET 1.3 GM PO (11:41)
[2020-05-31] MEDS: Mupirocin Ointment 22gm Tube 1 APPLIC TOPICAL (11:43)
--- NOTE | 2020-05-31 12:04 | NURSING ---
Clarified with Humberto in pharmacy dose for Questran. Notified to give patient 1/3 of the packet. Same completed.
--- NOTE | 2020-05-31 12:04 | NURSING ---
Addendum entered by Myra Caputo 05/31/20 13:22: Pt states colace and Milk of Magnesia cause stool to be too soft to easily remove digitally. Pt states that regardless of how soft stool is she does not have muscles needed to expel on her own. Very difficult to remove stool digitally at this time but pt reports feeling much better when completed. Pt states that if we tried to make stool thinner it would get into her wounds and that she does not want complications from that. Refused Colace and Milk of Magnesia. Original Note: Pt. tearful and states she is completely uncomfortable due to her bowels. Notified this RN that she needed digital stimulation at this time- same completed. Bed bath completed, giordano care provided, giordano flushed with 60cc NS per order, powder applied to reddened areas: under left breast and right and left abdomen/ groin. Pillow cases applied under abdominal fold to help control moisture and nystatin cream held at this time per pt request and due to moist/ reddened creases. Daily dressing change also completed with application of antibacterial cream per order. pt tolerated all activities well, but was painful with movement of left leg for dressing change.
[2020-05-31] MEDS: 0.9% Saline Lock 10 ML Syringe IV (14:05)
--- NOTE | 2020-05-31 19:20 | PN.SURG_ITS ---
Subjective: Postop #4 Patient is resting comfortably. - Physical Exam Vitals/I&O's: Vital Signs Temp Pulse Resp BP Pulse Ox 98.9 F 101 H 18 121/76 H 100 05/31/20 13:52 05/31/20 13:52 05/31/20 13:52 05/31/20 13:52 05/31/20 13:52 Oxygen Delivery Method Room Air Weight: 176 lb 9.444 oz Body Mass Index (BMI) 27.6 Intake and Output for Last 24 Hours 05/29/20 05/30/20 05/31/20 23:59 23:59 23:59 Intake Total 1912 / 2452 3183 / 4233 4207 / 4207 Output Total 3773 / 4773 5120 / 6645 6068 / 6068 Balance -186 / -2320 -193 / -2411 -1860 / Drainage 20 ml yesterday. General: Alert, Oriented x3 HEENT: PERRLA, EOMI Oral: Moist Mucosa Neck: Supple Abdomen: Soft, Non-Distended Skin: Incision - right ischial incision is dry and intact. Flap is soft and healing satisfactory. No clinical evidence of hematoma. Redressed with dry gauze and antibiotic ointment and a compression yolanda wrap. Neurological: Cranial nerves II-XII grossly intact Psych/Mental Status: Normal Affect, Appropriate Microbiology Past 72 Hours 05/27/20 Unknown Tissue - Ischium Gram Stain - Final 05/27/20 Unknown Tissue - Ischium Wound Culture - Final Corynebacterium striatum 05/27/20 Unknown Tissue - Ischium Anaerobic Culture - Final Anaerobic cocci 05/27/20 Unknown Tissue - Bone Gram Stain - Final 05/27/20 Unknown Tissue - Bone Wound Culture - Final No growth aerobically. 05/27/20 Unknown Tissue - Bone Anaerobic Culture - Final Anaerobic cocci Pathology - pending. Current Medications Acetaminophen (Tylenol) 650 mg PO Q6H PRN PRN PRN Reason: fever/Noncardiac pain(4-09/07) Last Admin: 05/28/20 09:49 Dose: 650 mg Documented by: Acetic Acid (Acetic Acid) 60 ml IR QHS [facility] Last Admin: 05/30/20 22:24 Dose: 60 ml Documented by: Baclofen (Lioresal) 20 mg PO Q8H PRN PRN PRN Reason: MUSCLE SPASMS Last Admin: 05/31/20 09:54 Dose: 20 mg Documented by: Cholestyramine Resin (Questran 4gm Packet) 1.3 gm PO DAILY [facility] Last Admin: 05/31/20 11:41 Dose: 1.3 gm Documented by: Diazepam (Valium) 5 mg PO 4X/DAY PRN PRN PRN Reason: SPASMS Docusate Sodium (Colace) 100 mg PO BID [facility] Last Admin: 05/31/20 11:41 Dose: Not Given Documented by: Enoxaparin Sodium (Lovenox) 40 mg SC DAILY@0600 [facility] Last Admin: 05/31/20 06:10 Dose: 40 mg Documented by: Fluconazole (Diflucan) 200 mg PO Mo@1000 [facility] Last Admin: 05/27/20 18:52 Dose: 200 mg Documented by: Lactated Ringer's () 1,000 mls @ 60 mls/hr IV .[id number] [facility] Last Admin: 05/31/20 09:43 Dose: 60 mls/hr Documented by: Sodium Chloride () 250 mls @ 15 mls/hr IV .[id number] PRN PRN Reason: Saline Flush Ampicillin Sodium/Sulbactam Sodium 1,500 mg/ Sodium Chloride 50 mls @ 100 mls/hr IV Q8 [facility] Last Infusion: 05/31/20 14:43 Dose: Infused Documented by: Lactobacillus Acidophilus (Acidophilus) 1 tablet PO 4X/DAY [facility] Last Admin: 05/31/20 17:57 Dose: Not Given Documented by: Letrozole (Femara) 2.5 mg PO DAILY [facility] Last Admin: 05/31/20 09:45 Dose: 2.5 mg Documented by: Magnesium Hydroxide (Milk Of Magnesia) 30 ml PO BID [facility] Last Admin: 05/31/20 11:41 Dose: Not Given Documented by: Metoprolol Tartrate (Lopressor (Beta David)) 25 mg PO BID [facility] Last Admin: 05/31/20 09:47 Dose: 25 mg Documented by: Mupirocin (Bactroban) 1 applic TOPICAL DAILY [facility]; Protocol Last Admin: 05/31/20 11:43 Dose: 1 applicatio Documented by: Nitrofurantoin Macrocrystals ([facility]robid) [facility] Last Admin: 05/31/20 09:44 Dose: 100 mg Documented by: Nutritional Formula (Domingo - [place] Flavor) 1 packet PO BIDCM [facility] Last Admin: 05/31/20 17:57 Dose: 1 packet Documented by: Nutritional Formula (Lactose Free) (Ensure Enlive) 120 ml PO 4X/DAY [facility] Last Admin: 05/31/20 17:59 Dose: 120 ml Documented by: Nystatin (Mycostatin) 1 applic TOPICAL BID [facility] Last Admin: 05/31/20 09:46 Dose: 1 applicatio Documented by: Nystatin (Mycostatin Powder) 1 applic TOPICAL BID [facility]; Protocol Last Admin: 05/31/20 09:46 Dose: 1 applicatio Documented by: Oxybutynin Chloride (Ditropan) 5 mg PO BID [facility] Last Admin: 05/31/20 09:45 Dose: 5 mg Documented by: Oxycodone HCl (Oxyir) 10 mg PO Q4H PRN PRN PRN Reason: Pain Score 6-10/10 Sodium Chloride () 10 - 40 ml IV UD PRN PRN Reason: SALINE FLUSH Last Admin: 05/31/20 14:05 Dose: 10 ml Documented by: Medical Necessity - Tobacco Use Smoking Status: Never smoker Assessment/Plan All Active Problems Decubitus ulcer of coccygeal region, stage 2 (Acute) Pressure injury, stage 4, with gangrene (Acute) History of breast cancer (Acute) Leukocytosis (Acute) Sepsis (Acute) 1. Right ischial pressure sore, Stage IV. 2. Chronic osteomyelitis. 3. Multiple sclerosis. 4. s/p excision right ischial pressure sore, Stage IV, with partial ostectomy for osteomyelitis and reconstruction with right hamstrings myocutaneous advancement flap ajnd placement AmnioFill placental connective tissue powder (500 mg). Incision is dry and intact. Flap is soft and healing satisfactory. No clinical evidence of hematoma. Continue dry dressings daily with antibiotic ointment. Operative culture shows Corynebacterium striatum and Anaerobic cocci in the soft tissue and Anaerobic cocci in the bone. Pathology is pending. She is currently on Unasyn. It was difficult getting a PICC line placed. A peripheral line will be placed. Until the IV is placed, will change the Unasyn to Augmentin. Once IV access is obtained, will change back to Unasyn. Prior to discharge to the ECF, a central line by General Surgery may be necessary. Prealbumin was 16.2. Encourage nutritional supplementation with protein to help the healing process. She will need to be on 6 weeks of bedrest on a specialty bed (low air loss bed). ECF evaluation in process. Awaiting a precert. 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 However, at the ECF her will not be allowed to see her. The ECF stated that daily digital stimulation would not be possible and they recommended medical treatment to maintain bowel movements. They voiced understanding and were in agreement. However they have some concerns about the medical treatment since loose stools usually occur in her when medical treatment is tried. With her decreased intestinal motility secondary to the MS, it was discussed with the patient that a diverting colostomy is an option. One of the risks of the medical treatment if loose stools ensues is the potential for stool contamination with the recently placed flap that good lead to incisional separation and flap compromise. A revision flap would be necessary. If she opts not for a colostomy at this time, then a colostomy would be necessary if flap compromise develops before proceeding with operative flap revision. She voices understanding. After discharge, will [facility]3 weeks for suture removal and removal of the drains.
[2020-05-31] MEDS: Amox/Clavulanate 875 MG Tablet PO (22:16)
[2020-05-31] MEDS: Docusate Sodium 100 MG Capsule PO (22:18)
[2020-05-31] MEDS: ACETIC ACID 1,000 ML IRRIG.SOLN 60 ML IR (22:35)
[2020-06-01] VITALS (9 sets, daily range): BP systolic 98–131; BP diastolic 55–69; PULSE 91–107; RESP 16–18; TEMP 36.6–37.4; O2SAT 94–100
[2020-06-01] MEDS: Lactated Ringers 1,000 ML 60 ML IV ×2 (02:26→18:20)
[2020-06-01] MEDS: Enoxaparin 40 MG/0.4 ML Syringe SC (06:22)
[2020-06-01] MEDS: 0.9% Saline Lock 10 ML Syringe IV ×2 (06:22→22:03)
[2020-06-01] MEDS: Baclofen 10 MG Tablet 20 MG PO ×3 (06:27→23:30)
[2020-06-01] MEDS: Amox/Clavulanate 875 MG Tablet PO (08:29)
[2020-06-01] MEDS: Metoprolol Tartrate 25 MG Tablet PO ×2 (08:30→22:04)
[2020-06-01] MEDS: Nitrofurantoin Macrocrystals 100 MG Capsule PO (08:30)
[2020-06-01] MEDS: Cholestyramine/Sucrose 4 GM/PACKET 1.3 GM PO (08:31)
[2020-06-01] MEDS: Oxybutynin 5 MG Tablet PO ×2 (08:32→22:04)
[2020-06-01] MEDS: Nystatin Ointment 1 APPLIC TOPICAL ×2 (10:34→22:29)
[2020-06-01] MEDS: Mupirocin Ointment 22gm Tube 1 APPLIC TOPICAL (10:34)
[2020-06-01] MEDS: Nystatin Powder 15gm Bottle 1 APPLIC TOPICAL ×2 (10:35→22:30)
--- NOTE | 2020-06-01 13:38 | PN.SURG_ITS ---
Subjective: Postop #5 Patient is resting comfortably. - Physical Exam Vitals/I&O's: Vital Signs Temp Pulse Resp BP Pulse Ox 98.2 F 98 16 113/65 100 06/01/20 11:34 06/01/20 11:34 06/01/20 11:34 06/01/20 11:34 06/01/20 11:34 Oxygen Delivery Method Room Air Weight: 176 lb 9.444 oz Body Mass Index (BMI) 27.6 Intake and Output for Last 24 Hours 05/30/20 05/31/20 06/01/20 23:59 23:59 23:59 Intake Total 3183 / 4233 4207 / 4507 2300 / 2300 Output Total 5120 / 6645 6068 / 7268 3875 / 3875 Balance -1937 / -2412 -1861 / -2761 -1575 / -1575 Drainage 33 ml yesterday. General: Alert, Oriented x3 HEENT: PERRLA, EOMI Oral: Moist Mucosa Neck: Supple Abdomen: Soft, Non-Distended Skin: Incision - right ischial incision is dry and intact. Flap is soft and hea ling satisfactory. Redressed with dry gauze and antibiotic ointment and a compression yolanda wrap. Neurological: Cranial nerves II-XII grossly intact Psych/Mental Status: Normal Affect, Appropriate Microbiology Past 72 Hours 05/27/20 Unknown Tissue - Ischium Gram Stain - Final 05/27/20 Unknown Tissue - Ischium Wound Culture - Final Corynebacterium striatum 05/27/20 Unknown Tissue - Ischium Anaerobic Culture - Final Anaerobic cocci 05/27/20 Unknown Tissue - Bone Gram Stain - Final 05/27/20 Unknown Tissue - Bone Wound Culture - Final No growth aerobically. 05/27/20 Unknown Tissue - Bone Anaerobic Culture - Final Anaerobic cocci Pathology - pending. Current Medications Acetaminophen (Tylenol) 650 mg PO Q6H PRN PRN PRN Reason: fever/Noncardiac pain(-09/07) Last Admin: 05/28/20 09:49 Dose: 650 mg Documented by: Acetic Acid (Acetic Acid) 60 ml IR QHS [facility] Last Admin: 05/31/20 22:35 Dose: 60 ml Documented by: Amoxicillin/Clavulanate Potassium (Augmentin Tablet) 875 mg PO BID [facility] Last Admin: 06/01/20 08:29 Dose: 875 mg Documented by: Baclofen (Lioresal) 20 mg PO Q8H PRN PRN PRN Reason: MUSCLE SPASMS Last Admin: 06/01/20 06:27 Dose: 20 mg Documented by: Cholestyramine Resin (Questran 4gm Packet) 1.3 gm PO DAILY [facility] Last Admin: 06/01/20 08:31 Dose: 1.3 gm Documented by: Diazepam (Valium) 5 mg PO 4X/DAY PRN PRN PRN Reason: SPASMS Docusate Sodium (Colace) 100 mg PO BID [facility] Last Admin: 06/01/20 08:30 Dose: Not Given Documented by: Enoxaparin Sodium (Lovenox) 40 mg SC DAILY@0600 [facility] Last Admin: 06/01/20 06:22 Dose: 40 mg Documented by: Fluconazole (Diflucan) 200 mg PO Mo@1000 [facility] Last Admin: 05/27/20 18:52 Dose: 200 mg Documented by: Lactated Ringer's () 1,000 mls @ 60 mls/hr IV .[id number] [facility] Last Admin: 06/01/20 02:26 Dose: 60 mls/hr Documented by: Sodium Chloride () 250 mls @ 15 mls/hr IV .[id number] PRN PRN Reason: Saline Flush Lactobacillus Acidophilus (Acidophilus) 1 tablet PO 4X/DAY [facility] Last Admin: 06/01/20 08:28 Dose: 1 tablet Documented by: Letrozole (Femara) 2.5 mg PO DAILY [facility] Last Admin: 06/01/20 08:31 Dose: 2.5 mg Documented by: Magnesium Hydroxide (Milk Of Magnesia) 30 ml PO BID [facility] Last Admin: 06/01/20 08:31 Dose: Not Given Documented by: Metoprolol Tartrate (Lopressor (Beta David)) 25 mg PO BID [facility] Last Admin: 06/01/20 08:30 Dose: 25 mg Documented by: Mupirocin (Bactroban) 1 applic TOPICAL DAILY [facility]; Protocol Last Admin: 06/01/20 10:34 Dose: 1 applicatio Documented by: Nitrofurantoin Macrocrystals ([facility]bid) [facility] Last Admin: 06/01/20 08:30 Dose: 100 mg Documented by: Nutritional Formula (Domingo - [place] Flavor) 1 packet PO BIDCM [facility] Last Admin: 06/01/20 08:28 Dose: 1 packet Documented by: Nutritional Formula (Lactose Free) (Ensure Enlive) 120 ml PO 4X/DAY [facility] Last Admin: 06/01/20 08:34 Dose: 120 ml Documented by: Nystatin (Mycostatin) 1 applic TOPICAL BID [facility] Last Admin: 06/01/20 10:34 Dose: 1 applicatio Documented by: Nystatin (Mycostatin Powder) 1 applic TOPICAL BID [facility]; Protocol Last Admin: 06/01/20 10:35 Dose: 1 applicatio Documented by: Oxybutynin Chloride (Ditropan) 5 mg PO BID [facility] Last Admin: 06/01/20 08:32 Dose: 5 mg Documented by: Oxycodone HCl (Oxyir) 10 mg PO Q4H PRN PRN PRN Reason: Pain Score 6-10/10 Sodium Chloride () 10 - 40 ml IV UD PRN PRN Reason: SALINE FLUSH Last Admin: 06/01/20 06:22 Dose: 10 ml Documented by: Medical Necessity - Tobacco Use Smoking Status: Never smoker Assessment/Plan All Active Problems Decubitus ulcer of coccygeal region, stage 2 (Acute) Pressure injury, stage 4, with gangrene (Acute) History of breast cancer (Acute) Leukocytosis (Acute) Sepsis (Acute) 1. Right ischial pressure sore, Stage IV. 2. Chronic osteomyelitis. 3. Multiple sclerosis. 4. s/p excision right ischial pressure sore, Stage IV, with partial ostectomy for osteomyelitis and reconstruction with right hamstrings myocutaneous advancement flap and placement AmnioFill placental connective tissue powder (500 mg). Incision is dry and intact. Flap is soft and healing satisfactory. No clinical evidence of hematoma. Continue dry dressings daily with antibiotic ointment. Operative culture shows Corynebacterium striatum and Anaerobic cocci in the soft tissue and Anaerobic cocci in the bone. Pathology is pending. It was difficult getting a PICC line placed. A peripheral line was placed. Until the IV was placed, she was temporarily placed on Augmentin. Once IV access was obtained, we stopped the Augmentin and changed back to Unasyn. Prior to discharge to the [facility], a central line by General Surgery may be necessary. Prealbumin was 16.2. Encourage nutritional supplementation with protein to help the healing process. She will need to be on 6 weeks of bedrest on a specialty bed (low air loss bed). ECF evaluation in process. Awaiting a precert. 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 However, at the ECF her will not be allowed to see her. The ECF stated that daily digital stimulation would not be possible and they recommended medical treatment to maintain bowel movements. They voiced understanding and were in agreement. However they have some concerns about the medical treatment since loose stools usually occur in her when medical treatment is tried. With her decreased intestinal motility secondary to the MS, it was discussed with the patient that a diverting colostomy is an option. One of the risks of the medical treatment if loose stools ensues is the potential for stool contamination with the recently placed flap that good lead to incisional separation and flap compromise. A revision flap would be necessary. If she opts not for a colostomy at this time, then a colostomy would be necessary if flap compromise develops before proceeding with operative flap revision. She voices understanding. After discharge, will [facility] 2[facility]3 weeks for suture removal and removal of the drains.
[2020-06-01] MEDS: Magnesium Hydroxide 30 ML UDC PO ×2 (15:13→22:29)
--- NOTE | 2020-06-01 15:31 | NURSING ---
pt state no need for nursing to call with update
--- NOTE | 2020-06-01 18:45 | NURSING ---
digitally stimulated pt per pt request. small amt of stool returned
[2020-06-01] MEDS: ACETIC ACID 1,000 ML IRRIG.SOLN 60 ML IR (22:03)
[2020-06-01] MEDS: Docusate Sodium 100 MG Capsule PO (22:04)
[2020-06-02 03:33] VITALS: BP 115/70; PULSE 89; RESP 18; TEMP 37; O2SAT 98
[2020-06-02] MEDS: Enoxaparin 40 MG/0.4 ML Syringe SC (06:05)
[2020-06-02 06:56] LABS: Hematocrit 33.3 % (37-47); Hemoglobin 10.2 g/dL (12.0-15.0); Mean Corp Hgb Conc 30.6 g/dL (32-36); Mean Corpuscular Hgb 26.6 pg (27.0-32.0); Mean Corpuscular Volume 86.9 fL (81-99); Mean Platelet Vol. 9.3 fl (6.2-12.0); Platelet Count 404 K/mm3 (150-450); RBC Distribution Width CV 14.6 % (11.6-14.6); RBC Distribution Width SD 46.1 fl (35.1-43.9); Red Blood Count 3.83 M/mm3 (4.2-5.4); White Blood Count 12.6 K/mm3 (4.4-11.0)
[2020-06-02 07:18] LABS: Anion Gap 5 (5-15); BUN 16 mg/dL (7-18); BUN/Creat Ratio 55.7 RATIO (10-20); Calcium,Total 8.4 mg/dL (8.5-10.1); Chloride 106 mmol/L (98-107); Creatinine, Serum 0.29 mg/dL (0.55-1.02); EST Glomerular Filtration Rate 249 mL/min (>60); Est Glom Filt Rate - Afr Amer 302 mL/min (>60); Estimated Creatinine Clearance 188.07 ml/min; Glucose 93 mg/dL (74-106); Potassium 3.7 mmol/L (3.5-5.1); Sodium Level 139 mmol/L (136-145)
[2020-06-02] MEDS: Baclofen 10 MG Tablet 20 MG PO ×2 (09:31→17:03)
[2020-06-02] MEDS: Nitrofurantoin Macrocrystals 100 MG Capsule PO (09:32)
[2020-06-02 09:42] VITALS: BP 120/68; PULSE 92; RESP 16; TEMP 36.9; O2SAT 99
[2020-06-02] MEDS: Mupirocin Ointment 22gm Tube 1 APPLIC TOPICAL (10:21)
[2020-06-02] MEDS: Docusate Sodium 100 MG Capsule PO ×2 (10:22→22:01)
[2020-06-02] MEDS: Oxybutynin 5 MG Tablet PO ×2 (10:23→22:01)
[2020-06-02] MEDS: Cholestyramine/Sucrose 4 GM/PACKET 1.3 GM PO (10:25)
[2020-06-02] MEDS: Nystatin Powder 15gm Bottle 1 APPLIC TOPICAL ×2 (10:26→22:03)
[2020-06-02] MEDS: Nystatin Ointment 1 APPLIC TOPICAL ×2 (10:27→22:04)
[2020-06-02 10:28] VITALS: BP 120/68; PULSE 92
[2020-06-02] MEDS: Metoprolol Tartrate 25 MG Tablet PO ×2 (10:28→22:01)
[2020-06-02] MEDS: Magnesium Hydroxide 30 ML UDC PO ×2 (10:33→22:00)
[2020-06-02] MEDS: Lactated Ringers 1,000 ML 60 ML IV (14:38)
[2020-06-02] MEDS: 0.9% Saline Lock 10 ML Syringe IV (14:40)
[2020-06-02 15:05] VITALS: BP 97/53; PULSE 95; RESP 16; TEMP 36.8; O2SAT 98
--- NOTE | 2020-06-02 16:47 | PN.SURG_ITS ---
Subjective: Postop #6 Patient is resting comfortably. - Physical Exam Vitals/I&O's: Vital Signs Temp Pulse Resp BP Pulse Ox 98.3 F 95 16 97/53 L 98 06/02/20 15:05 06/02/20 15:05 06/02/20 15:05 06/02/20 15:05 06/02/20 15:05 Oxygen Delivery Method Room Air Weight: 176 lb 9.444 oz Body Mass Index (BMI) 27.6 Intake and Output for Last 24 Hours 05/31/20 06/01/20 06/02/20 23:59 23:59 23:59 Intake Total 4207 / 4507 4125 / 5025 2474 / 2474 Output Total 6068 / 7268 6090 / 7740 3668 / 3668 Balance -1861 / -2761 -1965 / -2715 -1194 / -1194 Drainage - 40 ml yesterday. General: Alert, Oriented x3 HEENT: EOMI Oral: Moist Mucosa Neck: Supple Abdomen: Soft, Non-Distended Skin: Incision - right ischial incision is dry and intact. Flap is soft and healing satisfactory. Redressed with antibiotic ointment and gauze and compression yolanda wrap. Neurological: Cranial nerves II-XII grossly intact Psych/Mental Status: Normal Affect, Appropriate Microbiology Past 72 Hours 05/27/20 Unknown Tissue - Ischium Gram Stain - Final 05/27/20 Unknown Tissue - Ischium Wound Culture - Final Corynebacterium striatum 05/27/20 Unknown Tissue - Ischium Anaerobic Culture - Final Anaerobic cocci Laboratory Results 06/02/20 06:26: WBC 12.6 H, RBC 3.83 L, Hgb 10.2 L, Hct 33.3 L, MCV 86.9, MCH 26.6 L, MCHC 30.6 L, RDW Std Deviation 46.1 H, RDW Coeff of Homer 14.6, Plt Count 404, MPV 9.3 06/02/20 06:26: Sodium 139, Potassium 3.7, Chloride 106, Carbon Dioxide 28.0, Anion Gap 5, BUN 16, Creatinine 0.29 L, Estim Creat Clear Calc 188.07, Est GFR (MDRD) Af Amer 302, Est GFR (MDRD) Non-Af 249, BUN/Creatinine Ratio 55.7 H, Glucose 93, Calcium 8.4 L Pathology - pending. Current Medications Acetaminophen (Tylenol) 650 mg PO Q6H PRN PRN PRN Reason: fever/Noncardiac pain(4-10/10) Last Admin: 05/28/20 09:49 Dose: 650 mg Documented by: Acetic Acid (Acetic Acid) 60 ml IR QHS [facility] Last Admin: 06/01/20 22:03 Dose: 60 ml Documented by: Baclofen (Lioresal) 20 mg PO Q8H PRN PRN PRN Reason: MUSCLE SPASMS Last Admin: 06/02/20 09:31 Dose: 20 mg Documented by: Cholestyramine Resin (Questran 4gm Packet) 1.3 gm PO DAILY [facility] Last Admin: 06/02/20 10:25 Dose: 1.3 gm Documented by: Diazepam (Valium) 5 mg PO 4X/DAY PRN PRN PRN Reason: SPASMS Docusate Sodium (Colace) 100 mg PO BID [facility] Last Admin: 06/02/20 10:22 Dose: 100 mg Documented by: Enoxaparin Sodium (Lovenox) 40 mg SC DAILY@0600 [facility] Last Admin: 06/02/20 06:05 Dose: 40 mg Documented by: Fluconazole (Diflucan) 200 mg PO Mo@1000 [facility] Last Admin: 05/27/20 18:52 Dose: 200 mg Documented by: Lactated Ringer's () 1,000 mls @ 60 mls/hr IV .[id number] [facility] Last Admin: 06/02/20 14:38 Dose: 60 mls/hr Documented by: Sodium Chloride () 250 mls @ 15 mls/hr IV .[id number] PRN PRN Reason: Saline Flush Ampicillin Sodium/Sulbactam (Sodium 3 gm/ Sodium Chloride) 112 mls @ 150 mls/hr IV Q8 [facility] Last Infusion: 06/02/20 15:23 Dose: Infused Documented by: Lactobacillus Acidophilus (Acidophilus) 1 tablet PO 4X/DAY [facility] Last Admin: 06/02/20 14:38 Dose: 1 tablet Documented by: Letrozole (Femara) 2.5 mg PO DAILY [facility] Last Admin: 06/02/20 10:27 Dose: 2.5 mg Documented by: Magnesium Hydroxide (Milk Of Magnesia) 30 ml PO BID [facility] Last Admin: 06/02/20 10:33 Dose: 30 ml Documented by: Metoprolol Tartrate (Lopressor (Beta David)) 25 mg PO BID [facility] Last Admin: 06/02/20 10:28 Dose: 25 mg Documented by: Mupirocin (Bactroban) 1 applic TOPICAL DAILY [facility]; Protocol Last Admin: 06/02/20 10:21 Dose: 1 applicatio Documented by: Nitrofurantoin Macrocrystals ([facility]robid) [facility] Last Admin: 06/02/20 09:32 Dose: 100 mg Documented by: Nutritional Formula ([place] Flavor) 1 packet PO BIDCM [facility] Last Admin: 06/02/20 09:32 Dose: 1 packet Documented by: Nutritional Formula (Lactose Free) (Ensure Enlive) 120 ml PO 4X/DAY [facility] Last Admin: 06/02/20 15:56 Dose: Not Given Documented by: Nystatin (Mycostatin) 1 applic TOPICAL BID [facility] Last Admin: 06/02/20 10:27 Dose: 1 applicatio Documented by: Nystatin (Mycostatin Powder) 1 applic TOPICAL BID [facility]; Protocol Last Admin: 06/02/20 10:26 Dose: 1 applicatio Documented by: Oxybutynin Chloride (Ditropan) 5 mg PO BID [facility] Last Admin: 06/02/20 10:23 Dose: 5 mg Documented by: Oxycodone HCl (Oxyir) 10 mg PO Q4H PRN PRN PRN Reason: Pain Score 6-10/10 Sodium Chloride () 10 - 40 ml IV UD PRN PRN Reason: SALINE FLUSH Last Admin: 06/02/20 14:40 Dose: 10 ml Documented by: Medical Necessity - Tobacco Use Smoking Status: Never smoker Assessment/Plan All Active Problems Decubitus ulcer of coccygeal region, stage 2 (Acute) Pressure injury, stage 4, with gangrene (Acute) History of breast cancer (Acute) Leukocytosis (Acute) Sepsis (Acute) 1. Right ischial pressure sore, Stage IV. 2. Chronic osteomyelitis. 3. Multiple sclerosis. 4. s/p excision right ischial pressure sore, Stage IV, with partial ostectomy for osteomyelitis and reconstruction with right hamstrings myocutaneous advancement flap and placement AmnioFill placental connective tissue powder (500 mg). Incision is dry and intact. Flap is soft and healing satisfactory. No clinical evidence of hematoma. Continue dry dressings daily with antibiotic ointment. Operative culture shows Corynebacterium striatum and Anaerobic cocci in the soft tissue and Anaerobic cocci in the bone. Continue Unasyn. Pathology is pending. Prealbumin was 16.2. Encourage nutritional supplementation with protein to help the healing process. She will need to be on 6 weeks of bedrest on a specialty bed (low air loss bed). ECF evaluation in process. Awaiting a precert. 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 However, at the ECF her will not be allowed to see her. The ECF stated that daily digital stimulation would not be possible and they recommended medical treatment to maintain bowel movements. They voiced understanding and were in agreement. However they have some concerns about the medical treatment since loose stools usually occur in her when medical treatment is tried. With her decreased intestinal motility secondary to the MS, it was discussed with the patient that a diverting colostomy is an option. One of the risks of the medical treatment if loose stools ensues is the potential for stool contamination with the recently placed flap that good lead to incisional separation and flap compromise. A revision flap would be necessary. If she opts not for a colostomy at this time, then a colostomy would be necessary if flap compromise develops before proceeding with operative flap revision. She voices understanding. After discharge, [facility]3 [facility] for suture removal and removal of the drains.
[2020-06-02 19:34] VITALS: BP 97/60; PULSE 103; RESP 16; TEMP 37.2; O2SAT 97
[2020-06-02 22:01] VITALS: PULSE 100
[2020-06-02] MEDS: ACETIC ACID 1,000 ML IRRIG.SOLN 60 ML IR (22:01)
[2020-06-03] MEDS: Baclofen 10 MG Tablet 20 MG PO ×3 (01:02→22:42)
[2020-06-03 03:11] VITALS: BP 112/64; PULSE 84; RESP 16; TEMP 37; O2SAT 97
[2020-06-03] MEDS: Enoxaparin 40 MG/0.4 ML Syringe SC (05:09)
[2020-06-03] MEDS: Lactated Ringers 1,000 ML 60 ML IV (08:47)
[2020-06-03] MEDS: Nitrofurantoin Macrocrystals 100 MG Capsule PO (08:49)
[2020-06-03 09:00] VITALS: BP 147/70; PULSE 76; RESP 18; TEMP 36.4; O2SAT 97
[2020-06-03 09:04] VITALS: BP 141/70; PULSE 96
[2020-06-03] MEDS: Metoprolol Tartrate 25 MG Tablet PO ×2 (09:04→22:21)
[2020-06-03] MEDS: Docusate Sodium 100 MG Capsule PO ×2 (09:05→22:20)
[2020-06-03] MEDS: Nystatin Ointment 1 APPLIC TOPICAL (09:17)
[2020-06-03] MEDS: Cholestyramine/Sucrose 4 GM/PACKET 1.3 GM PO (09:17)
[2020-06-03] MEDS: Nystatin Powder 15gm Bottle 1 APPLIC TOPICAL (09:17)
[2020-06-03] MEDS: Oxybutynin 5 MG Tablet PO ×2 (09:18→22:20)
[2020-06-03] MEDS: Mupirocin Ointment 22gm Tube 1 APPLIC TOPICAL (09:19)
[2020-06-03] MEDS: Magnesium Hydroxide 30 ML UDC PO ×2 (09:28→22:25)
--- NOTE | 2020-06-03 09:28 | CASEMGMT ---
Addendum entered by Daya Craig 06/03/20 11:44: SW received a call back from [facility], they do take pt's insurance. Referral being faxed now. SW let pt know. AFSHAN Wei Addendum entered by Daya Craig 06/03/20 11:16: [facility] called back, they cannot take pt. SW spoke w/pt, explained to pt that [facility] cannot take her, and that will need to look at other options. SW provided list to patient of other facilities near to where she lives, with the star ratings and that take her insurance. Pt asked about [facility] in [place]. SW called [facility], message left for the admissions person. SW looked at insurance website, facility is not listed as an option for [place]. SW let pt know, provided to her a list of facilities per her request that take her insurance in the [place] area. Pt's will be in soon, pt will have ask to speak w/SW when he arrives to review list and send referral to facility of their choice. AFSHAN Wei Original Note: SW called [facility], spoke w/Lynsey and let her know that pt still will need the manual stimulation in order to move her bowels. SW inquired if the could be allowed in to assist with this possibly, or if there are any other options. Lynsey is to text Bita in admissions and call SW back. SW requested she call this SW back as soon as possible, as if they cannot take her then SW will need to start over with a new referral and precert with a different facility. AFSHAN Wei
[2020-06-03] MEDS: Fluconazole 100 MG Tablet 200 MG PO (11:31)
--- NOTE | 2020-06-03 12:56 | CASEMGMT ---
Pt's is here now, inquiring about going to [facility] and what it means to be in network. SW explained, to the best of this SW's knowledge, what it means to be in network and that [facility] is not in network with the insurance, meaning they do not have a contract with one another and insurance will not cover a stay in TCU. SW offered to call insurance to see if pt has out of network benefits. Pt and expressed frustration with the situation, as so far pt has been turned down by two nursing homes, support offered. We discussed other options, including making additional referrals if [facility] cannot take pt, including making additional referrals to other facilities and taking pt home with additional barrel raiser helper. Pt and also asked about a colostomy. SW explained for them to discuss this with Dr. Dougherty, and pt also wanted to speak w/skull splitter about it(SW let skull splitter know). asked if pt would be able to go to [facility] if she had a colostomy. SW explained that she may be able to do so. SW did call Yoselin at [facility]([phone]) to ask if they could take pt if she had a colostomy, she states yes. SW called pt's insurance, it is an HMO and pt has no out of network benefits. SW let pt and know. SW will continue to follow, waiting for call back from [facility]. AFSHAN Wei
[2020-06-03 17:03] VITALS: BP 147/81; PULSE 96; RESP 18; TEMP 36.3; O2SAT 98
--- NOTE | 2020-06-03 17:07 | PN.SURG_ITS ---
Subjective: Postop #7 Patient is resting comfortably. - Physical Exam Vitals/I&O's: Vital Signs Temp Pulse Resp BP Pulse Ox 97.4 F L 96 18 147/81 H 98 06/03/20 17:03 06/03/20 17:03 06/03/20 17:03 06/03/20 17:03 06/03/20 17:03 Oxygen Delivery Method Room Air Weight: 176 lb 9.444 oz Body Mass Index (BMI) 27.6 Intake and Output for Last 24 Hours 06/01/20 06/02/20 06/03/20 23:59 23:59 23:59 Intake Total 4125 / 5025 3186 / 3186 207 / 2071 Output Total 6090 / 7740 6683 / 6683 2558 / 2558 Balance -1965 / -2715 -3497 / -3497 -487 / -487 General: Alert, Oriented x3 HEENT: PERRLA, EOMI Oral: Moist Mucosa Neck: Supple Abdomen: Soft, Non-Distended Skin: Incision - right ischial incision dry and intact. Flap is soft and healing satisfactory. Continue antibiotic ointment and gauze dressing followed by compression yolanda wrap. Neurological: Cranial nerves II-XII grossly intact Psych/Mental Status: Normal Affect, Appropriate Current Medications Acetaminophen (Tylenol) 650 mg PO Q6H PRN PRN PRN Reason: fever/Noncardiac pain(4-10/10) Last Admin: 05/28/20 09:49 Dose: 650 mg Documented by: Acetic Acid (Acetic Acid) 60 ml IR QHS [facility] Last Admin: 06/02/20 22:01 Dose: 60 ml Documented by: Baclofen (Lioresal) 20 mg PO Q8H PRN PRN PRN Reason: MUSCLE SPASMS Last Admin: 06/03/20 08:56 Dose: 20 mg Documented by: Cholestyramine Resin (Questran 4gm Packet) 1.3 gm PO DAILY [facility] Last Admin: 06/03/20 09:17 Dose: 1.3 gm Documented by: Diazepam (Valium) 5 mg PO 4X/DAY PRN PRN PRN Reason: SPASMS Docusate Sodium (Colace) 100 mg PO BID [facility] Last Admin: 06/03/20 09:05 Dose: 100 mg Documented by: Enoxaparin Sodium (Lovenox) 40 mg SC DAILY@0600 [facility] Last Admin: 06/03/20 05:09 Dose: 40 mg Documented by: Fluconazole (Diflucan) 200 mg PO Mo@1000 [facility] Last Admin: 06/03/20 11:31 Dose: 200 mg Documented by: Lactated Ringer's () 1,000 mls @ 60 mls/hr IV .[id number] [facility] Last Admin: 06/03/20 08:47 Dose: 60 mls/hr Documented by: Sodium Chloride () 250 mls @ 15 mls/hr IV .[id number] PRN PRN Reason: Saline Flush Last Infusion: 06/03/20 00:17 Dose: 0 mls/hr Documented by: Ampicillin Sodium/Sulbactam (Sodium 3 gm/ Sodium Chloride) 112 mls @ 150 mls/hr IV Q8 [facility] Last Admin: 06/03/20 14:13 Dose: 150 mls/hr Documented by: Lactobacillus Acidophilus (Acidophilus) 1 tablet PO 4X/DAY [facility] Last Admin: 06/03/20 17:05 Dose: 1 tablet Documented by: Letrozole (Femara) 2.5 mg PO DAILY [facility] Last Admin: 06/03/20 09:05 Dose: 2.5 mg Documented by: Magnesium Hydroxide (Milk Of Magnesia) 30 ml PO BID [facility] Last Admin: 06/03/20 09:28 Dose: 30 ml Documented by: Metoprolol Tartrate (Lopressor (Beta David)) 25 mg PO BID [facility] Last Admin: 06/03/20 09:04 Dose: 25 mg Documented by: Mupirocin (Bactroban) 1 applic TOPICAL DAILY [facility]; Protocol Last Admin: 06/03/20 09:19 Dose: 1 applicatio Documented by: Nitrofurantoin Macrocrystals ([facility]robid) [facility] Admin: 06/03/20 08:49 Dose: 100 mg Documented by: Nutritional Formula ([place] - [place] Flavor) [facility] Last Admin: 06/03/20 17:05 Dose: 1 packet Documented by: Nutritional Formula (Lactose Free) (Ensure Enlive) 120 ml PO 4X/DAY [facility] Last Admin: 06/03/20 17:06 Dose: 120 ml Documented by: Nystatin (Mycostatin) 1 applic TOPICAL BID [facility] Last Admin: 07/06/20 09:17 Dose: 1 applicatio Documented by: Nystatin (Mycostatin Powder) 1 applic TOPICAL BID [facility]; Protocol Last Admin: 06/03/20 09:17 Dose: 1 applicatio Documented by: Oxybutynin Chloride (Ditropan) 5 mg PO BID [facility] Last Admin: 06/03/20 09:18 Dose: 5 mg Documented by: Oxycodone HCl (Oxyir) 10 mg PO Q4H PRN PRN PRN Reason: Pain Score 6-10/10 Sodium Chloride () 10 - 40 ml IV UD PRN PRN Reason: SALINE FLUSH Last Admin: 06/02/20 14:40 Dose: 10 ml Documented by: Medical Necessity - Tobacco Use Smoking Status: Never smoker Assessment/Plan All Active Problems Decubitus ulcer of coccygeal region, stage 2 (Acute) Pressure injury, stage 4, with gangrene (Acute) History of breast cancer (Acute) Leukocytosis (Acute) Sepsis (Acute) 1. Right ischial pressure sore, Stage IV. 2. Acute and chronic osteomyelitis. 3. Multiple sclerosis. 4. s/p excision right ischial pressure sore, Stage IV, with partial ostectomy for osteomyelitis and reconstruction with right hamstrings myocutaneous advancement flap and placement AmnioFill placental connective tissue powder (500 mg). Incision is dry and intact. Flap is soft and healing satisfactory. No clinical evidence of hematoma. Continue dry dressings daily with antibiotic ointment. Operative culture shows Corynebacterium striatum and Anaerobic cocci in the soft tissue and Anaerobic cocci in the bone. Continue Unasyn. Pathology is positive for acute and chronic osteomyelitis. She will need 6 weeks of IV Unasyn. Prealbumin was 16.2. Encourage nutritional supplementation with protein to help the healing process. She will need to be on 6 weeks of bedrest on a specialty bed (low air loss bed). ECF evaluation in process. Awaiting a precert. 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 However, at the ECF her will not be allowed to see her. The ECF stated that daily digital stimulation would not be possible and they recommended medical treatment to maintain bowel movements. They voiced understanding and were in agreement. However they have some concerns about the medical treatment since loose stools usually occur in her when medical treatment is tried. With her decreased intestinal motility secondary to the MS, it was discussed with the patient that a diverting colostomy is an option. One of the risks of the medical treatment if loose stools ensues is the potential for stool contamination with the recently placed flap that good lead to incisional separation and flap compromise. A revision flap would then be necessary. If she opts not for a colostomy at this time, then a colostomy would be necessary if flap compromise develops before proceeding with operative flap revision. She voices understanding. Today she has decided to proceed with the diverting colostomy. Consulted General Surgery. After discharge, [facility]3 [facility] for suture removal and removal of the drains.
[2020-06-03 20:27] VITALS: BP 99/63; PULSE 83; RESP 16; TEMP 37.4; O2SAT 98
[2020-06-03] MEDS: ACETIC ACID 1,000 ML IRRIG.SOLN 60 ML IR (22:20)
[2020-06-03 22:21] VITALS: PULSE 101
[2020-06-04] MEDS: Nystatin Powder 15gm Bottle 1 APPLIC TOPICAL ×3 (00:26→22:06)
[2020-06-04] MEDS: Lactated Ringers 1,000 ML 60 ML IV (00:30)
[2020-06-04 02:43] VITALS: BP 91/53; PULSE 93; RESP 16; TEMP 36.9; O2SAT 94
[2020-06-04] MEDS: Enoxaparin 40 MG/0.4 ML Syringe SC (06:09)
[2020-06-04] MEDS: Baclofen 10 MG Tablet 20 MG PO ×2 (06:44→21:57)
--- NOTE | 2020-06-04 07:49 | PCM.CONS.GEN ---
Problem List (1) Pressure injury, stage 4, with gangrene Status: Acute Comment: right buttock (2) Debility Status: Chronic Reason for Consult Date of Consultation: 06/04/20 Reason for Consultation: Placement of colostomy History of Present Illness: The patient is a 65 year old F who presented for debridement of sacral ulcer. Patient has MS and debility and requires digital stimulation to have bowel movements and she is unable to have this at the residential. She is also concerned that laxatives may cause her to have diarrhea and contamination of the flap that was recently created. I was consulted for placement of colostomy to divert stool. Patient is having no abdominal symptoms at this time. Past Medical History Past Medical History (Chronic Problems): Chronic Problems Candidal skin infection (Chronic) Chronic osteomyelitis of right pelvic region (Chronic) Right ischial pressure sore, stage 4 (Chronic) Pressure injury of sacral region, stage 2 (Chronic) Debility (Chronic) Multiple sclerosis (Chronic) Psoriasis (Chronic) Bilateral lower extremity edema (Chronic) Pressure injury of buttock, stage 4 (Chronic) Allergies bacitracin [From Neosporin ([id number])] Allergy (Verified 04/25/20 13:17) Rash neomycin [From Neosporin ([id number])] Allergy (Verified 04/25/20 13:17) Rash ondansetron [From Zofran] Allergy (Verified 04/30/20 13:09) palpitations polymyxin B [From Neosporin ([id number])] Allergy (Verified 04/25/20 13:17) Rash Sulfa (Sulfonamide Antibiotics) Allergy (Verified 04/25/20 13:17) Rash Home Medications: Ambulatory Orders Medication Instructions Recorded Ascorbic Acid [Vitamin C] 1 tab PO BID 11/03/19 Baclofen 1 - 2 tab PO Q8H PRN PRN 11/03/19 Cholecalciferol (VIT D3) [Vitamin 1,000 unit PO DINNER 11/03/19 D3] Cholestyramine (with Sugar) 1 packet PO DAILY 11/03/19 [Cholestyramine Powder] Cranberry Fruit Extract [Cranberry] 200 mg PO DINNER 11/03/19 Letrozole 1 tab PO DAILY 11/03/19 Oxybutynin [Ditropan] 2 tab PO BID 11/03/19 Vitamin E (Dl,Tocopheryl Acet) 400 unit PO DINNER 11/03/19 [Vitamin E] Acetaminophen [Tylenol Tablet] 650 mg PO Q6H PRN PRN tab 11/08/19 nystatin 100,000 unit/gram topical 1 applic TOPICAL TID 15 Days #60 g 03/18/20 powder Aboric Acid 600 mg RECTAL DAILY 04/25/20 Apixaban [Eliquis] 5 mg PO BID 04/25/20 Nitrofurantoin Macrocrystal 50 mg PO DINNER 04/25/20 [Macrodantin] Pro Stat 5 ml PO DINNER 04/25/20 Fluconazole 200 mg PO QWEEK 05/02/20 Amox/Clavulanate Tablet [Augmentin 875 mg PO Q12H 05/26/20 Tablet] L. Rhamnosus GG/Inulin [Culturelle 2 ea PO BID 05/26/20 Digest 10B Cell Cap] Letrozole [Femara] 2.5 mg PO DAILY 05/26/20 Magnesium Hydroxide [Milk Of 30 ml PO PRN PRN 05/26/20 Magnesia] Metoprolol Tartrate [Lopressor 25 mg PO BID 05/26/20 (beta david)] Nystatin 1 applic TOPICAL BID 05/26/20 Ampicillin Sodium/Sulbactam Na 1.5 gm IV Q8 40 Days #120 vial 05/29/20 [Unasyn 1.5 gm Vial] Surgical History: mastectomy - right, - - Suprapubic catheter, skin debridements Smoking Status: Never smoker - *Family History Maternal History Items: Cancer Paternal History Items: Heart Disease Review of Systems Constitutional: Denies: Anorexia, Fever HEENT: Denies: Difficulty Swallowing Cardiovascular: Denies: Chest Pain Respiratory: Denies: Cough, Shortness of Breath Gastrointestinal: Denies: Abdominal Pain Genitourinary: Reports: - - Suprapubic catheter Musculoskeletal: Reports: - - Weakness due to MS Skin: Denies: Jaundice - Physical Exam Vitals/I&O's: Vital Signs Temp Pulse Resp BP Pulse Ox 98.5 F 93 16 91/53 L 94 06/04/20 02:43 06/04/20 02:43 06/04/20 02:43 06/04/20 02:43 06/04/20 02:43 Oxygen Delivery Method Room Air Weight: 176 lb 9.444 oz Body Mass Index (BMI) 27.6 Intake and Output for Last 24 Hours 06/02/20 06/03/20 06/04/20 23:59 23:59 23:59 Intake Total 3186 / 3186 3545 / 3545 1358.25 / 1358.25 Output Total 6683 / 6683 6653 / 6653 1142 / 1142 Balance -3497 / -3497 -3108 / -3108 216.25 / 216.25 General: Alert, Oriented x3, Cooperative Neck: No JVD Lungs: Normal air movement Cardiovascular: Regular rate, Regular Rhythm Abdomen: Soft, Non Tender, Non-Distended Lymphatic: No Cervical, Supraclavicular, or Inguinal Adenopathy Neurological: Cranial nerves II-XII grossly intact Psych/Mental Status: Normal Affect Current Medications Acetaminophen (Tylenol) 650 mg PO Q6H PRN PRN PRN Reason: fever/Noncardiac pain(4-09/07) Last Admin: 05/28/20 09:49 Dose: 650 mg Documented by: Acetic Acid (Acetic Acid) 60 ml IR QHS [facility] Last Admin: 06/03/20 22:20 Dose: 60 ml Documented by: Baclofen (Lioresal) 20 mg PO Q8H PRN PRN PRN Reason: MUSCLE SPASMS Last Admin: 06/04/20 06:44 Dose: 20 mg Documented by: Cholestyramine Resin (Questran 4gm Packet) 1.3 gm PO DAILY [facility] Last Admin: 06/03/20 09:17 Dose: 1.3 gm Documented by: Diazepam (Valium) 5 mg PO 4X/DAY PRN PRN PRN Reason: SPASMS Docusate Sodium (Colace) 100 mg PO BID [facility] Last Admin: 06/03/20 22:20 Dose: 100 mg Documented by: Enoxaparin Sodium (Lovenox) 40 mg SC DAILY@0600 [facility] Last Admin: 06/04/20 06:09 Dose: 40 mg Documented by: Fluconazole (Diflucan) 200 mg PO Mo@1000 [facility] Last Admin: 06/03/20 11:31 Dose: 200 mg Documented by: Lactated Ringer's () 1,000 mls @ 60 mls/hr IV .[id number] [facility] Last Admin: 06/04/20 00:30 Dose: 60 mls/hr Documented by: Sodium Chloride () 250 mls @ 15 mls/hr IV .[id number] PRN PRN Reason: Saline Flush Last Infusion: 06/04/20 06:55 Dose: 15 mls/hr Documented by: Ampicillin Sodium/Sulbactam (Sodium 3 gm/ Sodium Chloride) 112 mls @ 150 mls/hr IV Q8 [facility] Last Infusion: 06/04/20 06:55 Dose: Infused Documented by: Lactobacillus Acidophilus (Acidophilus) 1 tablet PO 4X/DAY [facility] Last Admin: 06/03/20 22:20 Dose: 1 tablet Documented by: Letrozole (Femara) 2.5 mg PO DAILY [facility] Last Admin: 06/03/20 09:05 Dose: 2.5 mg Documented by: Magnesium Hydroxide (Milk Of Magnesia) 30 ml PO BID [facility] Last Admin: 06/03/20 22:25 Dose: 30 ml Documented by: Metoprolol Tartrate (Lopressor (Beta David)) 25 mg PO BID [facility] Last Admin: 06/03/20 22:21 Dose: 25 mg Documented by: Metronidazole (Flagyl) 1,000 mg PO 1300,1400,2300 [facility] Stop: 06/05/20 23:01 Mupirocin (Bactroban) 1 applic TOPICAL DAILY [facility]; Protocol Last Admin: 06/03/20 09:19 Dose: 1 applicatio Documented by: N[facility]fur[facility] Admin: 06/03/20 08:49 Dose: 100 mg Documented by: Nutritional Formula (Domingo - [place] Flavor) 1 packet PO BIDCM [facility] Last Admin: 06/03/20 17:05 Dose: 1 packet Documented by: Nutritional Formula (Lactose Free) (Ensure Enlive) 120 ml PO 4X/DAY [facility] Last Admin: 06/03/20 22:22 Dose: Not Given Documented by: Nystatin (Mycostatin) 1 applic TOPICAL BID [facility] Last Admin: 06/03/20 22:21 Dose: Not Given Documented by: Nystatin (Mycostatin Powder) 1 applic TOPICAL BID [facility]; Protocol Last Admin: 06/04/20 00:26 Dose: 1 applicatio Documented by: Oxybutynin Chloride (Ditropan) 5 mg PO BID [facility] Last Admin: 06/03/20 22:20 Dose: 5 mg Documented by: Oxycodone HCl (Oxyir) 10 mg PO Q4H PRN PRN PRN Reason: Pain Score 6-10/10 Sodium Chloride () 10 - 40 ml IV UD PRN PRN Reason: SALINE FLUSH Last Admin: 06/02/20 14:40 Dose: 10 ml Documented by: Assessment/Plan All Active Problems Decubitus ulcer of coccygeal region, stage 2 (Acute) Pressure injury, stage 4, with gangrene (Acute) History of breast cancer (Acute) Leukocytosis (Acute) Sepsis (Acute) 65-year-old female with debility and need for end colostomy 1. I discussed colostomy placement with the patient in detail. I discussed the procedure as well as the risks including but not limited to bleeding, infection, injury to surrounding organs such as the bladder, bowel, ureters. Patient also understands the possibility of conversion to open surgery. The patient would like to proceed with end colostomy placement. I did inform her that this would likely be permanent. I will start her on clear liquids today in order Flagyl and stool softeners for tomorrow. I will have the hire car driver leland her stoma site. I will also order a COVID swab as her test is over 7 days old. 2. Plan for surgery June 06 at 9 AM. Gabriele Coyne MD Pager: [facility] [address] [place] [address], [address] [place] [address] Office:
[2020-06-04 08:41] VITALS: BP 97/54; PULSE 95; RESP 16; TEMP 36.8; O2SAT 95
[2020-06-04] MEDS: Oxybutynin 5 MG Tablet PO ×2 (08:49→21:56)
[2020-06-04] MEDS: Nitrofurantoin Macrocrystals 100 MG Capsule PO (08:49)
[2020-06-04] MEDS: Docusate Sodium 100 MG Capsule PO ×2 (08:49→21:56)
[2020-06-04 08:50] VITALS: PULSE 95
[2020-06-04] MEDS: Metoprolol Tartrate 25 MG Tablet PO ×2 (08:50→21:56)
--- NOTE | 2020-06-04 10:20 | CASEMGMT ---
Addendum entered by Daya Craig 06/04/20 15:45: SW spoke w/Bita at [facility] she confirmed they will be able to take pt if she gets a colostomy. She states Yoselin is the educational administrator actually, and on Wednesday to follow up w/her. SW will call Yoselin Wednesday. SW let pt know did speak w/Bita at [facility] today, and Yoselin the educational administrator yesterday, both have stated pt can come to [place] after surgery. She will need precert. SW to follow up Wednesday. AFSHAN Wei Original Note: SW spoke w/pt this morning. She states she is going to go forward with the colostomy, and is asking if she can go to [facility] SW explained did check with Yoselin there yesterday and she had said that yes, if pt has the colostomy, they would be able to take her. Pt states the colostomy will be . SW explained we will send updates Wednesday then and ask them to start precert at that time. Pt states understanding and is in agreement with the plan. FAITH called [facility] and left Bita in admissions a message letting her know pt is going to go forward with the colostomy, asked Bita to call this FAITH back. FAITH also called [facility] know pt is now looking at a different facility. FAITH will continue to follow. AFSHAN Wei
[2020-06-04] MEDS: Cholestyramine/Sucrose 4 GM/PACKET 1.3 GM PO (11:10)
[2020-06-04] MEDS: Mupirocin Ointment 22gm Tube 1 APPLIC TOPICAL (11:12)
--- NOTE | 2020-06-04 11:56 | PN.SURG_ITS ---
Subjective: Post op day #8 Patient resting comfortably in bed - Physical Exam Vitals/I&O's: Vital Signs Temp Pulse Resp BP Pulse Ox 98.3 F 95 16 97/54 L 95 06/04/20 08:41 06/04/20 08:50 06/04/20 08:41 06/04/20 08:41 06/04/20 08:41 Oxygen Delivery Method Room Air Weight: 176 lb 9.444 oz Body Mass Index (BMI) 27.6 Intake and Output for Last 24 Hours 06/02/20 06/03/20 06/04/20 23:59 23:59 23:59 Intake Total 3186 / 3186 3545 / 3545 1358.25 / 1358.25 Output Total 6683 / 6683 6653 / 6653 1142 / 1142 Balance -3497 / -3497 -3108 / -3108 216.25 / 216.25 General: Alert, Oriented x3, Cooperative HEENT: Atraumatic Oral: Moist Mucosa Extremities: Capillary Refill Less than 3 Seconds Skin: Incision - Dressing dry and intact and recently changed. Musculoskeletal: No Tenderness to Palpation of Joints or Extremities Neurological: Neuro grossly intact Psych/Mental Status: Normal Affect, Appropriate Laboratory Results 06/04/20 10:25: COVID-19 ([place]) Pending Current Medications Acetaminophen (Tylenol) 650 mg PO Q6H PRN PRN PRN Reason: fever/Noncardiac pain(4-09/07) Last Admin: 05/28/20 09:49 Dose: 650 mg Documented by: Acetic Acid (Acetic Acid) 60 ml IR QHS [facility] Last Admin: 06/03/20 22:20 Dose: 60 ml Documented by: Baclofen (Lioresal) 20 mg PO Q8H PRN PRN PRN Reason: MUSCLE SPASMS Last Admin: 06/04/20 06:44 Dose: 20 mg Documented by: Cholestyramine Resin (Questran 4gm Packet) 1.3 gm PO DAILY [facility] Last Admin: 06/04/20 11:10 Dose: 1.3 gm Documented by: Diazepam (Valium) 5 mg PO 4X/DAY PRN PRN PRN Reason: SPASMS Docusate Sodium (Colace) 100 mg PO BID [facility] Last Admin: 06/04/20 08:49 Dose: 100 mg Documented by: Fluconazole (Diflucan) 200 mg PO Mo@1000 [facility] Last Admin: 06/03/20 11:31 Dose: 200 mg Documented by: Lactated Ringer's () 1,000 mls @ 60 mls/hr IV .[id number] [facility] Last Admin: 06/04/20 00:30 Dose: 60 mls/hr Documented by: Sodium Chloride () 250 mls @ 15 mls/hr IV .[id number] PRN PRN Reason: Saline Flush Last Infusion: 06/04/20 06:55 Dose: 15 mls/hr Documented by: Ampicillin Sodium/Sulbactam (Sodium 3 gm/ Sodium Chloride) 112 mls @ 150 mls/hr IV Q8 [facility] Last Infusion: 06/04/20 06:55 Dose: Infused Documented by: Lactobacillus Acidophilus (Acidophilus) 1 tablet PO 4X/DAY [facility] Last Admin: 06/04/20 08:49 Dose: 1 tablet Documented by: Letrozole (Femara) 2.5 mg PO DAILY [facility] Last Admin: 06/04/20 08:51 Dose: 2.5 mg Documented by: Magnesium Hydroxide (Milk Of Magnesia) 30 ml PO BID [facility] Last Admin: 06/04/20 11:08 Dose: Not Given Documented by: Metoprolol Tartrate (Lopressor (Beta David)) 25 mg PO BID [facility] Last Admin: 06/04/20 08:50 Dose: 25 mg Documented by: Metronidazole (Flagyl) 1,000 mg PO 1300,1400,2300 [facility] Stop: 06/05/20 23:01 Mupirocin (Bactroban) 1 applic TOPICAL DAILY [facility]; Protocol Last Admin: 06/04/20 11:12 Dose: 1 applicatio Documented by: Nitrofurantoin [facility]rocrystals [facility]bid) [facility] Last Admin: 06/04/20 08:49 Dose: 100 mg Documented by: Nutritional Formula (Domingo - [place] Flavor) 1 packet PO BIDCM [facility] Last Admin: 06/04/20 09:34 Dose: Not Given Documented by: Nutritional Formula (Lactose Free) (Ensure Clear) 120 ml PO TIDCM [facility] Nystatin (Mycostatin) 1 applic TOPICAL BID [facility] Last Admin: 06/04/20 11:09 Dose: Not Given Documented by: Nystatin (Mycostatin Powder) 1 applic TOPICAL BID [facility]; Protocol Last Admin: 06/04/20 11:13 Dose: 1 applicatio Documented by: Oxybutynin Chloride (Ditropan) 5 mg PO BID [facility] Last Admin: 06/04/20 08:49 Dose: 5 mg Documented by: Oxycodone HCl (Oxyir) 10 mg PO Q4H PRN PRN PRN Reason: Pain Score 6-10/10 Sodium Chloride () 10 - 40 ml IV UD PRN PRN Reason: SALINE FLUSH Last Admin: 06/02/20 14:40 Dose: 10 ml Documented by: Medical Necessity - Tobacco Use Smoking Status: Never smoker Assessment/Plan All Active Problems Decubitus ulcer of coccygeal region, stage 2 (Acute) Pressure injury, stage 4, with gangrene (Acute) History of breast cancer (Acute) Leukocytosis (Acute) Sepsis (Acute) 1. Right ischial pressure sore, Stage IV. 2. Acute and chronic osteomyelitis. 3. Multiple sclerosis. 4. s/p excision right ischial pressure sore, Stage IV, with partial ostectomy for osteomyelitis and reconstruction with right hamstrings myocutaneous advancement flap and placement AmnioFill placental connective tissue powder (500 mg). Incision is dry and intact. Flap is soft and healing satisfactory. No clinical evidence of hematoma. Continue dry dressings daily with antibiotic ointment. Operative culture shows Corynebacterium striatum and Anaerobic cocci in the soft tissue and Anaerobic cocci in the bone. Continue Unasyn. Pathology is positive for acute and chronic osteomyelitis. She will need 6 weeks of IV Unasyn. Prealbumin was 16.2. Encourage nutritional supplementation with protein to help the healing process. She will need to be on 6 weeks of bedrest on a specialty bed (low air loss bed). ECF evaluation in process. Awaiting a precert. 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 However, at the ECF her will not be allowed to see her. The ECF stated that daily digital stimulation would not be possible and they recommended medical treatment to maintain bowel movements. They voiced understa nding and were in agreement. However they have some concerns about the medical treatment since loose stools usually occur in her when medical treatment is tried. With her decreased intestinal motility secondary to the MS, it was discussed with the patient that a diverting colostomy is an option. One of the risks of the medical treatment if loose stools ensues is the potential for stool contamination with the recently placed flap that good lead to incisional separation and flap compromise. A revision flap would then be necessary. If she opts not for a colostomy at this time, then a colostomy would be necessary if flap compromise develops before proceeding with operative flap revision. She voices understanding. She has decided to proceed with the diverting colostomy. Consulted General Surgery. Surgery planned for . After discharge, [facility]3 [facility] for suture removal and removal of the drains.
[2020-06-04 14:58] VITALS: BP 118/74; PULSE 92; RESP 18; TEMP 37.2; O2SAT 97
[2020-06-04] MEDS: 0.9% Normal Saline 1,000 ML 15 ML IV (15:50)
[2020-06-04] MEDS: Ensure Clear 120 ML Liquid PO (17:51)
[2020-06-04 21:49] VITALS: BP 106/59; PULSE 107; RESP 18; TEMP 36.8; O2SAT 96
[2020-06-04 21:56] VITALS: PULSE 107
[2020-06-04] MEDS: Magnesium Hydroxide 30 ML UDC PO (22:02)
[2020-06-04] MEDS: ACETIC ACID 1,000 ML IRRIG.SOLN 60 ML IR (22:07)
[2020-06-05 03:11] VITALS: BP 96/59; PULSE 97; RESP 16; TEMP 36.7; O2SAT 96
[2020-06-05] MEDS: Baclofen 10 MG Tablet 20 MG PO ×2 (05:39→17:50)
[2020-06-05] MEDS: Bisacodyl 5 MG Tablet 10 MG PO (07:33)
[2020-06-05] MEDS: Ensure Clear 120 ML Liquid PO ×3 (09:06→17:49)
[2020-06-05] MEDS: Cholestyramine/Sucrose 4 GM/PACKET 1.3 GM PO (09:07)
[2020-06-05 09:08] VITALS: PULSE 95
[2020-06-05] MEDS: Docusate Sodium 100 MG Capsule PO ×2 (09:08→22:37)
[2020-06-05] MEDS: Nitrofurantoin Macrocrystals 100 MG Capsule PO (09:08)
[2020-06-05] MEDS: Metoprolol Tartrate 25 MG Tablet PO ×2 (09:08→22:38)
[2020-06-05] MEDS: Oxybutynin 5 MG Tablet PO ×2 (09:08→22:38)
[2020-06-05] MEDS: Nystatin Powder 15gm Bottle 1 APPLIC TOPICAL ×2 (09:11→22:39)
[2020-06-05] MEDS: Magnesium Hydroxide 30 ML UDC PO ×2 (09:12→22:38)
[2020-06-05 09:15] VITALS: BP 101/58; PULSE 97; RESP 16; TEMP 36.8; O2SAT 95
--- NOTE | 2020-06-05 10:49 | NURSING ---
Pt notified this RN that she needed changed. This RN cleaned patient, applied new brief under patient, removed externally soiled tape from dressing and reapplied gauze pad as had been in place prior to this incontinent episode. Pt requested digital stimulation due to abdominal cramping. This RN attempted but unable to remove excess stool- consistence of pudding and located high in rectal vault. Pt notified of issue and that we will try again later and that hopefully stool will be further advanced at that time.
[2020-06-05] MEDS: 0.9% Normal Saline 1,000 ML 60 ML IV (11:46)
[2020-06-05] MEDS: Mupirocin Ointment 22gm Tube 1 APPLIC TOPICAL (11:47)
--- NOTE | 2020-06-05 12:18 | NURSING ---
Was asked to leland patient for stoma. pt is scheduled for a laparoscopic sigmoid colostomy per Dr Coyne. abdomen is large and rounded. patient states she does not wear pants. typically wears dresses at home. not abler to stand patient, but was able to sit patient up in the bed. no large abdominal creases noted. marked patient just slightly below the umbilical line in the mid to left lower quadrant. area marked with a skin pen and covered with an opsite dressing. surgery is scheduled for 914 tomorrow. pt denies any further questions at this time. pt states I'm very much at peace about my decision to have the surgery.
[2020-06-05] MEDS: metroNIDAZOLE 500 MG Tablet 1000 MG PO ×3 (13:40→22:42)
[2020-06-05 15:20] VITALS: BP 118/52; PULSE 93; RESP 16; TEMP 36.7; O2SAT 98
--- NOTE | 2020-06-05 17:35 | PN.SURG_ITS ---
Subjective: Postop #9 Patient is resting comfortably. - Physical Exam Vitals/I&O's: Vital Signs Temp Pulse Resp BP Pulse Ox 98.0 F 93 16 118/52 L 98 06/05/20 15:20 06/05/20 15:20 06/05/20 15:20 06/05/20 15:20 06/05/20 15:20 Oxygen Delivery Method Room Air Weight: 176 lb 9.444 oz Body Mass Index (BMI) 27.6 Intake and Output for Last 24 Hours 06/03/20 06/04/20 06/05/20 23:59 23:59 23:59 Intake Total 3545 / 3545 3262.50 / 3262.50 2161.75 / 2161.75 Output Total 6653 / 6653 3592 / 3592 1999 Balance -3108 / -3108 -329.50 / -329.50 161.75 / 161.75 Drainage 17 ml yesterday. General: Alert, Oriented x3 HEENT: PERRLA, EOMI Oral: Moist Mucosa Neck: Supple Abdomen: Soft, Non-Distended Skin: Incision - right ischial incision is dry and intact. Flap is soft and healing satisfactory. No clinical evidence of hematoma. Neurological: Cranial nerves II-XII grossly intact Psych/Mental Status: Normal Affect, Appropriate Pathology - positive for acute and chronic osteomyelitis. Current Medications Acetaminophen (Tylenol) 650 mg PO Q6H PRN PRN PRN Reason: fever/Noncardiac pain(4-10/10) Last Admin: 05/28/20 09:49 Dose: 650 mg Documented by: Acetic Acid (Acetic Acid) 60 ml IR QHS [facility] Last Admin: 06/04/20 22:07 Dose: 60 ml Documented by: Baclofen (Lioresal) 20 mg PO Q8H PRN PRN PRN Reason: MUSCLE SPASMS Last Admin: 06/05/20 05:39 Dose: 20 mg Documented by: Cholestyramine Resin (Questran 4gm Packet) 1.3 gm PO DAILY [facility] Last Admin: 06/05/20 09:07 Dose: 1.3 gm Documented by: Diazepam (Valium) 5 mg PO 4X/DAY PRN PRN PRN Reason: SPASMS Docusate Sodium (Colace) 100 mg PO BID [facility] Last Admin: 06/05/20 09:08 Dose: 100 mg Documented by: Fluconazole (Diflucan) 200 mg PO Mo@1000 [facility] Last Admin: 06/03/20 11:31 Dose: 200 mg Documented by: Sodium Chloride () 250 mls @ 15 mls/hr IV .[id number] PRN PRN Reason: Saline Flush Last Infusion: 06/04/20 15:30 Dose: Infused Documented by: Ampicillin Sodium/Sulbactam (Sodium 3 gm/ Sodium Chloride) 112 mls @ 150 mls/hr IV Q8 [facility] Last Infusion: 06/05/20 14:25 Dose: Infused Documented by: Sodium Chloride () 1,000 mls @ 60 mls/hr IV .[id number] [facility] Last Infusion: 06/05/20 14:25 Dose: 60 mls/hr Documented by: Lactobacillus Acidophilus (Acidophilus) 1 tablet PO 4X/DAY [facility] Last Admin: 06/05/20 13:39 Dose: 1 tablet Documented by: Letrozole (Femara) 2.5 mg PO DAILY [facility] Last Admin: 06/05/20 09:11 Dose: 2.5 mg Documented by: Magnesium Hydroxide (Milk Of Magnesia) 30 ml PO BID [facility] Last Admin: 06/05/20 09:12 Dose: 30 ml Documented by: Metoprolol Tartrate (Lopressor (Beta David)) 25 mg PO BID [facility] Last Admin: 06/05/20 09:08 Dose: 25 mg Documented by: Metronidazole (Flagyl) 1,000 mg PO 1300,1400,2300 [facility] Stop: 06/05/20 23:01 Last Admin: 06/05/20 15:13 Dose: 1,000 mg Documented by: Mupirocin (Bactroban) 1 applic TOPICAL DAILY [facility]; Protocol Last Admin: 06/05/20 11:47 Dose: 1 applicatio Documented by: Nitrofurantoin Macrocrystals ([facility]robid) [facility] Last Admin: 06/05/20 09:08 Dose: 100 mg Documented by: Nutritional Formula (Domingo - [place] Flavor) 1 packet PO BIDCM [facility] Last Admin: 06/05/20 09:06 Dose: 1 packet Documented by: Nutritional Formula (Lactose Free) (Ensure Clear) 120 ml PO TIDCM [facility] Last Admin: 06/05/20 11:46 Dose: 120 ml Documented by: Nystatin (Mycostatin Powder) 1 applic TOPICAL BID [facility]; Protocol Last Admin: 06/05/20 09:11 Dose: 1 applicatio Documented by: Oxybutynin Chloride (Ditropan) 5 mg PO BID [facility] Last Admin: 06/05/20 09:08 Dose: 5 mg Documented by: Oxycodone HCl (Oxyir) 10 mg PO Q4H PRN PRN PRN Reason: Pain Score 6-10/10 Sodium Chloride () 10 - 40 ml IV UD PRN PRN Reason: SALINE FLUSH Last Admin: 06/02/20 14:40 Dose: 10 ml Documented by: Medical Necessity - Tobacco Use Smoking Status: Never smoker Assessment/Plan All Active Problems Decubitus ulcer of coccygeal region, stage 2 (Acute) Pressure injury, stage 4, with gangrene (Acute) History of breast cancer (Acute) Leukocytosis (Acute) Sepsis (Acute) 1. Right ischial pressure sore, Stage IV. 2. Acute and chronic osteomyelitis. 3. Multiple sclerosis. 4. s/p excision right ischial pressure sore, Stage IV, with partial ostectomy for osteomyelitis and reconstruction with right hamstrings myocutaneous advancement flap and placement AmnioFill placental connective tissue powder (500 mg). Incision is dry and intact. Flap is soft and healing satisfactory. No clinical evidence of hematoma. Continue dry dressings daily with antibiotic ointment. Operative culture shows Corynebacterium striatum and Anaerobic cocci in the soft tissue and Anaerobic cocci in the bone. Continue Unasyn. Pathology is positive for acute and chronic osteomyelitis. She will need 6 weeks of IV Unasyn. Prealbumin was 16.2. Encourage nutritional supplementation with protein to help the healing process. She will need to be on 6 weeks of bedrest on a specialty bed (low air loss bed). ECF evaluation in process. Awaiting a precert. She has decided to proceed with the diverting colostomy. General Surgery was consulted, and it is scheduled for tomorrow morning. After discharge, will [facility]20 for suture removal and removal of the drains. She will need to travel on a stretcher in an ambulance as she will be on bedrest.
[2020-06-05 22:34] VITALS: BP 104/58; PULSE 100; RESP 18; TEMP 37.3; O2SAT 97
[2020-06-05] MEDS: diazePAM 5 MG Tablet PO (22:37)
[2020-06-05 22:38] VITALS: PULSE 100
[2020-06-05] MEDS: ACETIC ACID 1,000 ML IRRIG.SOLN 60 ML IR (22:39)
[2020-06-06] VITALS (15 sets, daily range): BP systolic 86–104; BP diastolic 46–65; PULSE 74–114; RESP 14–20; TEMP 36.3–37.2; O2SAT 91–100; BMI 27.6; BMI 28.0
--- NOTE | 2020-06-06 | COL._PTH ---
PATIENT: NAY GREENE LOC: MS3 U#:[id number] AGE/SX: 65/F ROOM: [facility] [place] RE05/26/[address]: Dr. Jose E Dougherty MD : 1955 BED: 1 DIS: 06/15/2020 SPEC #: [id number] RECD: 06/06/20 11:54 STATUS: HETAL REQ #: [id number] DEEJAY: 06/06/20 00:[address]: Gabriele Coyne DEPT: SURGICAL PATHOLOGY RECD BY: Malcolm Lujan ENTERED: 06/07/20 08:38 SP TYPE: COLON OTHR DR: MD Dr. Jose E Quiñones MD Dr. Robert Hart, MD Tissues: Colon, NOS Procedures: Surgery Specimen Level IV Comments: @ Ordering doctor for SUVI edited from to @ by RGOOD at 06/10/20 1159 @ Submitting doctor edited from to @ by RGOOD at 06/10/20 1159 HEADER OPERATION: Excision ischial pressure sore, partial ostectomy / sigmoid colectomy with end colostomy as per OR notes PRE-OP DIAGNOSIS: Right ischial pressure sore stage IV; osteomyelitis TISSUE SUBMITTED: Sigmoid colon - staple line rothman distal end MICROSCOPIC DIAGNOSIS Sigmoid colon, colectomy: Segment of sigmoid colon with no pathologic diagnosis, clinically dysmotility of colon. SJ:nano 06/10/20 MICROSCOPIC DESCRIPTION Slides are reviewed. GROSS DESCRIPTION Received in fixative is one container labeled with the patient's name and designated sigmoid colon. The specimen consists of a 13.5 cm length of bowel with attached fibrofatty tissue. One end of the bowel is opened. The opposite end is stapled and has been identified as the distal end. The mucosa is light livingston in color and thrown into normal folds. No mucosal mass lesions are identified. Serial sections do not reveal mass lesions. The attached fibrofatty tissue contains a number of grossly unremarkable nodules resembling lymph nodes. Comfort Station Attendant sections are submitted in six cassettes as follows: 1??proximal mucosal margin, 2 - distal mucosal margin, 3-6 - retail account representative sections of bowel. / AM:nano 06/07/20 TC:5 CPT: 26345
[2020-06-06] MEDS: 0.9% Saline Lock 10 ML Syringe IV (05:38)
--- NOTE | 2020-06-06 06:00 | EKG12_ITS ---
Test Reason : AM EKG Blood Pressure : / mmHG Vent. Rate : 098 BPM Atrial Rate : 098 BPM P-R Int : 144 ms QRS Dur : 074 ms QT Int : 372 ms P-R-T Axes : 040 015 054 degrees QTc Int : 474 ms Sinus rhythm with Premature atrial complexes Nonspecific T wave abnormality Abnormal ECG When compared with ECG of 02-NOV-2019 18:55, Premature atrial complexes are now Present Nonspecific T wave abnormality, worse in Anterolateral leads Confirmed by RENETTA ROSARIO, FLEX ([id number]), loan expeditor LIO BLANCHARD ([id number]) on 06/10/2020 1:21:45 PM Referred By: LIANNE Confirmed By:FLEX JACKSON MD
[2020-06-06 06:05] LABS: Absolute Lymphocyte Count 2.17 X10^3/uL (0.83-4.51); Absolute Neutrophil Count 8.3 X10^3/uL (2.0-7.7); Basophil# 0.04 X10^3/uL; Basophil% 0.4 % (0-1); Eosinophil# 0.16 X10^3/uL; Eosinophils% 1.4 % (0-5); Hematocrit 33.5 % (37-47); Hemoglobin 10.5 g/dL (12.0-15.0); Lymphocyte # 2.17 X10^3/ul (4.0); Lymphocyte % 19.4 % (19-41); Mean Corp Hgb Conc 31.3 g/dL (32-36); Mean Corpuscular Volume 86.1 fL (81-99); Mean Platelet Vol. 8.9 fl (6.2-12.0); Monocyte# 0.48 X10^3/uL; Monocyte% 4.3 % (0-10); NRBC Flagged by Analyzer 0 % (0-5); Neutrophil # 8.27 X10^3/uL (2.7-7.7); Platelet Count 450 K/mm3 (150-450); RBC Distribution Width CV 14.6 % (11.6-14.6); RBC Distribution Width SD 45.3 fl (35.1-43.9); Red Blood Count 3.89 M/mm3 (4.2-5.4); White Blood Count 11.2 K/mm3 (4.4-11.0)
[2020-06-06 06:14] LABS: International Normalized Ratio 1.2; Prothrombin Time (Protime)PT. 14.3 SECONDS (11.7-14.9)
[2020-06-06 06:15] LABS: Partial Thromboplast Time 28.3 Seconds (24.1-36.2)
[2020-06-06 06:29] LABS: Anion Gap 6 (5-15); BUN 11 mg/dL (7-18); BUN/Creat Ratio 30.6 RATIO (10-20); Calcium,Total 8.3 mg/dL (8.5-10.1); Chloride 107 mmol/L (98-107); Creatinine, Serum 0.36 mg/dL (0.55-1.02); EST Glomerular Filtration Rate 193 mL/min (>60); Est Glom Filt Rate - Afr Amer 233 mL/min (>60); Glucose 99 mg/dL (74-106); Potassium 3.4 mmol/L (3.5-5.1); Sodium Level 141 mmol/L (136-145)
[2020-06-06] MEDS: 0.9% Normal Saline 1,000 ML 60 ML IV ×2 (07:41→14:07)
[2020-06-06] MEDS: Metoprolol Tartrate 25 MG Tablet PO (07:41)
[2020-06-06] MEDS: Bupiv/Epi 0.25% 30 ML Vial (09:07)
--- NOTE | 2020-06-06 11:20 | CASEMGMT ---
Social Work Received call from Yoselin at [facility] requesting updated clinicals as she will start precert today. Clinicals faxed. SADIA Og
--- NOTE | 2020-06-06 14:33 | OP.PCM_ITS ---
Problem List (1) Pressure injury, stage 4, with gangrene Status: Acute Comment: right buttock (2) Debility Status: Chronic Report of Operation Date of Procedure: 06/06/20 Pre-Operative Diagnosis: MS and recent buttock flap with dysmotility of the colon Post-Operative Diagnosis: Same Surgery/Procedure Performed:: Laparoscopic sigmoid colectomy with end colostomy Description of Procedure: Patient was brought back to the operating room and general anesthesia was induced. The abdomen was prepped and draped in usual sterile fashion. An incision was made in the superior midline and deepened to the fascia. The fascia was elevated and incised and a port was placed into the abdomen and it was insufflated to 15 mmHg. Under direct visualization a right mid abdomen and the right lower quadrant ports were placed. The patient has severely dilated sigmoid colon. After examining the abdomen the colon seem to return to normal caliber at the descending colon. I believe that the sigmoid colon would not make for a good colostomy with how chronically dilated it was. I decided to perform a sigmoid colectomy and bring out the descending colon as the end colostomy so that it would be more mechanically fit as well as less dilated. The sigmoid colon was traced down to the rectosigmoid junction. A small window was created in the mesocolon using Enseal and a stapler was used with 2 loads to come across the distal sigmoid colon. Enseal was used to take down the mesentery until the left lower quadrant was reached. The patient had a lot of adhesions from the sigmoid colon to the contents of the left lower quadrant including the left ovary and abdominal sidewall. The sigmoid colon in the left lower quadrant was dissected free and once the normal caliber colon in the descending colon was reached it was free from its lateral attachments and ensure that it would reach the stoma site. A stoma incision was created and next a cruciate incision was made in the anterior fascia. The muscles were split and the posterior sheath of the rectus muscle was incised. The specimen was delivered through this incision and held in place with a María. Next the posterior rectus sheath was closed with interrupted 3-0 Vicryl's so that it was approximating the colon. The anterior fascia was closed in the same fashion allowing for one finger breath adjacent to the colon to easily be placed. Next the fascia in the midline incision in the right lower quadrant were both closed with interrupted 0 Vicryl suture and the incisions were closed with interrupted 4-0 Monocryl sutures and anesthetized. Next a Chris clamp was placed across the dilated colon and it was incised. Using interrupted 3-0 Vicryl sutures the co lostomy was matured to the skin. An appliance was placed over the colostomy and it was digitized ensuring that there was good passage for stool with no stricture or impacted stool. Patient was taken to PACU in stable condition and tolerated the procedure well. - Admit VTE Documentation VTE Mechan Device Prophylaxis: SCD's
--- NOTE | 2020-06-06 14:39 | NURSING ---
Pt back from surgery. present at bedside. [address] one with small shadow drainage noted. other ones dry and intact. stoma to the LLQ beefy red. small amount of bloody drainage noted in the appliance. will continue ostomy teaching with pt and tomorrow. plan is for pt to go to [facility] at discharge prior to going home. pt denies further needs at this time. just wants to rest.
--- NOTE | 2020-06-06 17:17 | NURSING ---
pt denies nausea at this time but does not want to take anything PO, clear liquids or pills at this time. also refusing nystatin powder to abd folds. will continue to monitor.
[2020-06-06] MEDS: Docusate Sodium 100 MG Capsule PO (22:14)
[2020-06-06] MEDS: Nystatin Powder 15gm Bottle 1 APPLIC TOPICAL (22:14)
[2020-06-06] MEDS: Magnesium Hydroxide 30 ML UDC PO (22:15)
[2020-06-06] MEDS: ACETIC ACID 1,000 ML IRRIG.SOLN 60 ML IR (22:31)
--- NOTE | 2020-06-06 22:32 | PCM.PN.BLA ---
Progress Note Postop #10 Patient underwent diverting colostomy today along with sigmoid colectomy. She is stable postop. Continue Unasyn IV. Right ischial dressing is dry. Will look at incision and the flap tomorrow. Once she is medically stable from her colostomy, she can be discharged to the ECF. STROKE Vital Signs/Narrative: Vital Signs Temp Pulse Resp BP Pulse Ox 06/06/20 22:15 114 H 91/46 L 06/06/20 21:49 99 F 114 H 18 91/46 L 96
[2020-06-06] MEDS: Oxybutynin 5 MG Tablet PO (22:42)
[2020-06-07] VITALS (9 sets, daily range): BP systolic 88–116; BP diastolic 45–63; PULSE 108–126; RESP 18–20; TEMP 36.8–38.5; O2SAT 92–97; BMI 28.0
[2020-06-07] MEDS: 0.9% Normal Saline 1,000 ML 60 ML IV (09:01)
[2020-06-07] MEDS: Mupirocin Ointment 22gm Tube 1 APPLIC TOPICAL (09:58)
[2020-06-07] MEDS: Nitrofurantoin Macrocrystals 100 MG Capsule PO (09:58)
[2020-06-07] MEDS: Docusate Sodium 100 MG Capsule PO ×2 (09:59→21:51)
[2020-06-07] MEDS: Oxybutynin 5 MG Tablet PO ×2 (09:59→21:51)
[2020-06-07] MEDS: Nystatin Powder 15gm Bottle 1 APPLIC TOPICAL ×2 (10:00→21:53)
[2020-06-07] MEDS: ACETIC ACID 1,000 ML IRRIG.SOLN 60 ML IR ×2 (10:00→15:43)
[2020-06-07] MEDS: Enoxaparin 40 MG/0.4 ML Syringe SC (10:00)
--- NOTE | 2020-06-07 10:01 | PCM.PN.SRG ---
Subjective: Patient seems to be doing well today. She had some Jell-O yesterday evening. - Physical Exam Vitals/I&O's: Vital Signs Temp Pulse Resp BP Pulse Ox 99.1 F 108 H 18 90/55 L 92 06/07/20 09:53 06/07/20 09:53 06/07/20 09:53 06/07/20 09:53 06/07/20 09:53 Oxygen Flow Rate (L/min) 2 Oxygen Delivery Method Room Air Weight: 176 lb 9.444 oz Body Mass Index (BMI) 27.6 Intake and Output for Last 24 Hours 06/05/20 06/06/20 06/07/20 23:59 23:59 23:59 Intake Total 3364.75 / 3964.75 1757 / 1757 1224 / 1224 Output Total 3160 / 4610 4080 / 4080 600 / 600 Balance 204.75 / -645.25 -2323 / -2323 624 / 624 Lungs: Normal air movement Abdomen: Soft, Non-Distended, No Hepato-splenomegaly Current Medications Acetaminophen (Tylenol) 650 mg PO Q6H PRN PRN PRN Reason: fever/Noncardiac pain() Last Admin: 05/28/20 09:49 Dose: 650 mg Documented by: Acetic Acid (Acetic Acid) 60 ml IR QHS [facility] Last Admin: 06/06/20 22:31 Dose: 60 ml Documented by: Baclofen (Lioresal) 20 mg PO Q8H PRN PRN PRN Reason: MUSCLE SPASMS Last Admin: 06/05/20 17:50 Dose: 20 mg Documented by: Cholestyramine Resin (Questran 4gm Packet) 1.3 gm PO DAILY [facility] Last Admin: 06/07/20 10:00 Dose: 1.3 gm Documented by: Diazepam (Valium) 5 mg PO 4X/DAY PRN PRN PRN Reason: SPASMS Last Admin: 06/05/20 22:37 Dose: 5 mg Documented by: Docusate Sodium (Colace) 100 mg PO BID [facility] Last Admin: 06/07/20 09:59 Dose: 100 mg Documented by: Enoxaparin Sodium (Lovenox) 40 mg SC DAILY [facility] Last Admin: 06/07/20 10:00 Dose: 40 mg Documented by: Fluconazole (Diflucan) 200 mg PO Mo@1000 [facility] Last Admin: 06/03/20 11:31 Dose: 200 mg Documented by: Sodium Chloride () 250 mls @ 15 mls/hr IV .[id number] PRN PRN Reason: Saline Flush Last Infusion: 06/04/20 15:30 Dose: Infused Documented by: Ampicillin Sodium/Sulbactam (Sodium 3 gm/ Sodium Chloride) 112 mls @ 150 mls/hr IV Q8 [facility] Last Infusion: 06/07/20 07:07 Dose: Infused Documented by: Sodium Chloride () 1,000 mls @ 60 mls/hr IV .[id number] [facility] Last Admin: 06/07/20 09:01 Dose: 60 mls/hr Documented by: Lactobacillus Acidophilus (Acidophilus) 1 tablet PO 4X/DAY [facility] Last Admin: 06/07/20 09:58 Dose: 1 tablet Documented by: Letrozole (Femara) 2.5 mg PO DAILY [facility] Last Admin: 06/07/20 09:59 Dose: 2.5 mg Documented by: Magnesium Hydroxide (Milk Of Magnesia) 30 ml PO BID [facility] Last Admin: 06/06/20 22:15 Dose: 30 ml Documented by: Metoprolol Tartrate (Lopressor (Beta David)) 25 mg PO BID [facility] Last Admin: 06/06/20 22:15 Dose: Not Given Documented by: Morphine Sulfate () 2 - 4 mg IV Q2H PRN PRN PRN Reason: Pain Score 4-10/10 Morphine Sulfate () 2 - 4 mg IV Q2H PRN PRN PRN Reason: Pain Score 4-10/10 Mupirocin (Bactroban) 1 applic TOPICAL DAILY [facility]; Protocol Last Admin: 06/07/20 09:58 Dose: 1 applicatio Documented by: N[facility]furantoin [facility]roc[facility] ([facility]) [facility] Last Admin: 06/07/20 09:58 Dose: 100 mg Documented by: Nutritional Formula (Domingo - Clinch Flavor) 1 packet PO BIDCM [facility] Last Admin: 06/07/20 09:58 Dose: 1 packet Documented by: Nutritional Formula (Lactose Free) (Ensure Clear) 120 ml PO TIDCM [facility] Last Admin: 06/06/20 17:16 Dose: Not Given Documented by: Nystatin (Mycostatin Powder) 1 applic TOPICAL BID [facility]; Protocol Last Admin: 06/07/20 10:00 Dose: 1 applicatio Documented by: Oxybutynin Chloride (Ditropan) 5 mg PO BID [facility] Last Admin: 06/07/20 09:59 Dose: 5 mg Documented by: Oxycodone HCl (Oxyir) 10 mg PO Q4H PRN PRN PRN Reason: Pain Score 6-10/10 Sodium Chloride () 10 - 40 ml IV UD PRN PRN Reason: SALINE FLUSH Last Admin: 06/06/20 05:38 Dose: 10 ml Documented by: Medical Necessity - Tobacco Use Smoking Status: Never smoker Assessment/Plan All Active Problems Decubitus ulcer of coccygeal region, stage 2 (Acute) Pressure injury, stage 4, with gangrene (Acute) History of breast cancer (Acute) Leukocytosis (Acute) Sepsis (Acute) 65-year-old female status post laparoscopic sigmoid colectomy with colostomy 1. Patient is doing well this morning. She reports no nausea or vomiting and she did tolerate some Jell-O. There is no flatus or stool in her colostomy bag yet. She can continue clear liquids until she starts having bowel function then she can be advanced to a regular diet. Okay to start Lovenox today. Gabriele Coyne MD Pager: [facility] [address] [place] [address], [address] [place] [address] Office:
[2020-06-07] MEDS: Baclofen 10 MG Tablet 20 MG PO ×2 (10:06→20:09)
[2020-06-07 11:07] LABS: Absolute Lymphocyte Count 1.56 X10^3/uL (0.83-4.51); Absolute Neutrophil Count 15.8 X10^3/uL (2.0-7.7); Basophil# 0.02 X10^3/uL; Basophil% 0.1 % (0-1); Eosinophil# 0.01 X10^3/uL; Eosinophils% 0.1 % (0-5); Hematocrit 34.2 % (37-47); Hemoglobin 10.7 g/dL (12.0-15.0); Lymphocyte # 1.56 X10^3/ul (4.0); Lymphocyte % 8.8 % (19-41); Mean Corp Hgb Conc 31.3 g/dL (32-36); Mean Corpuscular Hgb 26.8 pg (27.0-32.0); Mean Corpuscular Volume 85.7 fL (81-99); Mean Platelet Vol. 9.2 fl (6.2-12.0); Monocyte# 0.36 X10^3/uL; NRBC Flagged by Analyzer 0 % (0-5); Neutrophil # 15.76 X10^3/uL (2.7-7.7); Neutrophil % 88.6 % (47-70); Platelet Count 485 K/mm3 (150-450); RBC Distribution Width CV 14.6 % (11.6-14.6); RBC Distribution Width SD 45.7 fl (35.1-43.9); Red Blood Count 3.99 M/mm3 (4.2-5.4); White Blood Count 17.8 K/mm3 (4.4-11.0)
[2020-06-07] MEDS: Cholestyramine/Sucrose 4 GM/PACKET 1.3 GM PO (11:19)
[2020-06-07] MEDS: Magnesium Hydroxide 30 ML UDC PO ×2 (11:20→21:56)
[2020-06-07] MEDS: Ensure Clear 120 ML Liquid PO ×3 (11:20→18:36)
[2020-06-07 11:22] LABS: Anion Gap 6 (5-15); BUN 7 mg/dL (7-18); BUN/Creat Ratio 12.3 RATIO (10-20); Chloride 104 mmol/L (98-107); Creatinine, Serum 0.57 mg/dL (0.55-1.02); EST Glomerular Filtration Rate 113 mL/min (>60); Est Glom Filt Rate - Afr Amer 137 mL/min (>60); Estimated Creatinine Clearance 95.69 ml/min; Glucose 186 mg/dL (74-106); Potassium 3.2 mmol/L (3.5-5.1); Sodium Level 137 mmol/L (136-145)
--- NOTE | 2020-06-07 11:30 | CASEMGMT ---
Addendum entered by Daya Craig 06/07/20 14:54: SW spoke w/Yoselin at [facility], she does not anticipate getting precert today, thinks it will be Wednesday. SW spoke w/pt in room, let her know that as of now we do not have precert and it is anticipated it will be Wednesday before we get precert. Pt state understanding and is fine with staying here for the weekend. SW to follow up on Wednesday. AFSHAN Wei Original Note: FAITH called Yoselin at [facility], additional updates faxed. Yoselin is working on precert. SW attempted to speak w/pt, however she is sleeping at present. AFSHAN Wei
[2020-06-07] MEDS: Morphine 2 MG/ML Syringe IV (11:34)
[2020-06-07] MEDS: proMETHazine 25 MG/ML Syringe IV ×2 (11:34→20:04)
[2020-06-07] MEDS: Potassium Chloride 10mEq/100mL 10 MEQ/100 ML IV.SOLN. 100 MEQ IV BOLUS ×3 (12:29→16:37)
--- NOTE | 2020-06-07 13:32 | NURSING ---
No stool or flatus noted in the colostomy appliance. small amount of serosanguineous drainage noted in the ostomy appliance. patient c/o some abdominal discomfort with movement. abdomen slightly distended. did not remove ostomy appliance at this time. stoma is beefy red. will monitor and continue teaching with . possible discharge to assisted this weekend. will get most teaching from home health nurse on changing the appliance once pt gets home since will not be able to visit at the assisted.
--- NOTE | 2020-06-07 13:44 | NURSING ---
wound photo: right ischium/posterior thigh
--- NOTE | 2020-06-07 14:05 | NURSING ---
LATE ENTRY - 1100 - PT REQUESTING PAIN MEDICATION BUT AFRAID TO DUE TO MOST PAIN MEDS MAKING HER NAUSEATED. NO ANTIEMETICS ORDERED. DR ABDALLA NOTIFIED OF SAME - ORDERED PHENERGAN 25MG IV Q4H PRN IF OK WITH DR ELMORE. DR ELMORE ALSO NOTIFIED & OK WITH PHENERGAN ORDER.
[2020-06-07] MEDS: Acetaminophen 325 MG Tablet 650 MG PO (15:38)
--- NOTE | 2020-06-07 17:22 | PCM.PN.SRG ---
Subjective: Postop #11 Patient is resting comfortably. - Physical Exam Vitals/I&O's: Vital Signs Temp Pulse Resp BP Pulse Ox 101.3 F H 116 H 18 92/56 L 97 06/07/20 15:33 06/07/20 15:33 06/07/20 15:33 06/07/20 15:33 06/07/20 15:33 Oxygen Flow Rate (L/min) 2 Oxygen Delivery Method Room Air Weight: 176 lb 9.444 oz Body Mass Index (BMI) 27.6 Intake and Output for Last 24 Hours 06/05/20 06/06/20 06/07/20 23:59 23:59 23:59 Intake Total 3364.75 / 3964.75 1757 / 1757 1536 / 1536 Output Total 3160 / 4610 4080 / 4080 600 / 600 Balance 204.75 / -645.25 -2323 / -2323 936 / 936 Drainage 30 ml yesterday. General: Alert, Oriented x3 HEENT: PERRLA, EOMI Oral: Moist Mucosa Neck: Supple Skin: Incision - right ischial incision dry and intact. Flap is soft and healing satisfactory. Neurological: Cranial nerves II-XII grossly intact Psych/Mental Status: Normal Affect, Appropriate Laboratory Results 06/07/20 11:02: WBC 17.8 H, RBC 3.99 L, Hgb 10.7 L, Hct 34.2 L, MCV 85.7, MCH 26.8 L, MCHC 31.3 L, RDW Std Deviation 45.7 H, RDW Coeff of Homer 14.6, Plt Count 485 H, MPV 9.2, Immature Gran % (Auto) 0.400, Neut % (Auto) 88.6 H, Lymph % (Auto) 8.8 L, Darke % (Auto) 2.0, Eos % (Auto) 0.1, Baso % (Auto) 0.1, Absolute Neuts (auto) 15.8 H, Absolute Lymphs (auto) 1.56, Nucleated RBC % 0 06/07/20 11:02: Sodium 137, Potassium 3.2 L, Chloride 104, Carbon Dioxide 27.0, Anion Gap 6, BUN 7, Creatinine 0.57, Estim Creat Clear Calc 95.69, Est GFR (MDRD) Af Amer 137, Est GFR (MDRD) Non-Af 113, BUN/Creatinine Ratio 12.3, Glucose 186 H, Calcium 8.0 L Pathology - acute and chronic osteomyelitis. Diagnostic Data Chest X-Ray 06/07/20 17:35 IMPRESSION: No acute cardiopulmonary disease or major interval change. Electronically Signed: Trevor WerneronDO at 21:44 EDT Tel [phone], Service support , Current Medications Acetaminophen (Tylenol) 650 mg PO Q6H PRN PRN PRN Reason: fever/Noncardiac pain() Last Admin: 06/07/20 15:38 Dose: 650 mg Documented by: Acetic Acid (Acetic Acid) 60 ml IR QHS [facility] Last Admin: 06/07/20 15:43 Dose: 60 ml Documented by: Baclofen (Lioresal) 20 mg PO Q8H PRN PRN PRN Reason: MUSCLE SPASMS Last Admin: 06/07/20 10:06 Dose: 20 mg Documented by: Cholestyramine Resin (Questran 4gm Packet) 1.3 gm PO DAILY [facility] Last Admin: 06/07/20 11:19 Dose: 1.3 gm Documented by: Diazepam (Valium) 5 mg PO 4X/DAY PRN PRN PRN Reason: SPASMS Last Admin: 06/05/20 22:37 Dose: 5 mg Documented by: Docusate Sodium (Colace) 100 mg PO BID [facility] Last Admin: 06/07/20 09:59 Dose: 100 mg Documented by: Enoxaparin Sodium (Lovenox) 40 mg SC DAILY [facility] Last Admin: 06/07/20 10:00 Dose: 40 mg Documented by: Fluconazole (Diflucan) 200 mg PO Mo@1000 [facility] Last Admin: 06/03/20 11:31 Dose: 200 mg Documented by: Sodium Chloride () 250 mls @ 15 mls/hr IV .[id number] PRN PRN Reason: Saline Flush Last Infusion: 06/04/20 15:30 Dose: Infused Documented by: Ampicillin Sodium/Sulbactam (Sodium 3 gm/ Sodium Chloride) 112 mls @ 150 mls/hr IV Q8 [facility] Last Infusion: 06/07/20 16:19 Dose: Infused Documented by: Sodium Chloride () 1,000 mls @ 60 mls/hr IV .[id number] [facility] Last Admin: 06/07/20 09:01 Dose: 60 mls/hr Documented by: Lactobacillus Acidophilus (Acidophilus) 1 tablet PO 4X/DAY [facility] Last Admin: 06/07/20 15:40 Dose: 1 tablet Documented by: Letrozole (Femara) 2.5 mg PO DAILY [facility] Last Admin: 06/07/20 09:59 Dose: 2.5 mg Documented by: Magnesium Hydroxide (Milk Of Magnesia) 30 ml PO BID [facility] Last Admin: 06/07/20 11:20 Dose: 30 ml Documented by: Metoprolol Tartrate (Lopressor (Beta David)) 25 mg PO BID [facility] Last Admin: 06/07/20 10:28 Dose: Not Given Documented by: Morphine Sulfate () 2 - 4 mg IV Q2H PRN PRN PRN Reason: Pain Score 4-10/10 Last Admin: 06/07/20 11:34 Dose: 2 mg Documented by: Morphine Sulfate () 2 - 4 mg IV Q2H PRN PRN PRN Reason: Pain Score 4-10/10 Mupirocin (Bactroban) 1 applic TOPICAL DAILY [facility]; Protocol Last Admin: 06/07/20 09:58 Dose: 1 applicatio Documented by: Nitrofurantoin Macrocrystals (Macrobid) [facility] Last Admin: 06/07/20 09:58 Dose: 100 mg Documented by: Nutritional Formula (Domingo - [place]unn[place] Flavor) 1 packet PO BIDCM [facility] Last Admin: 06/07/20 09:58 Dose: 1 packet Documented by: Nutritional Formula (Lactose Free) (Ensure Clear) 120 ml PO TIDCM [facility] Last Admin: 06/07/20 12:29 Dose: 120 ml Documented by: Nystatin (Mycostatin Powder) 1 applic TOPICAL BID [facility]; Protocol Last Admin: 06/07/20 10:00 Dose: 1 applicatio Documented by: Oxybutynin Chloride (Ditropan) 5 mg PO BID [facility] Last Admin: 06/07/20 09:59 Dose: 5 mg Documented by: Oxycodone HCl (Oxyir) 10 mg PO Q4H PRN PRN PRN Reason: Pain Score 6-10/10 Promethazine HCl (Phenergan) 25 mg IV Q4H PRN PRN PRN Reason: NAUSEA/VOMITING Last Admin: 06/07/20 11:34 Dose: 25 mg Documented by: Sodium Chloride () 10 - 40 ml IV UD PRN PRN Reason: SALINE FLUSH Last Admin: 06/06/20 05:38 Dose: 10 ml Documented by: Medical Necessity - Tobacco Use Smoking Status: Never smoker Assessment/Plan All Active Problems Decubitus ulcer of coccygeal region, stage 2 (Acute) Pressure injury, stage 4, with gangrene (Acute) History of breast cancer (Acute) Leukocytosis (Acute) Sepsis (Acute) 1. Right ischial pressure sore, Stage IV. 2. Acute and chronic osteomyelitis. 3. Multiple sclerosis. 4. s/p excision right ischial pressure sore, Stage IV, with partial ostectomy for osteomyelitis and reconstruction with right hamstrings myocutaneous advancement flap and placement AmnioFill placental connective tissue powder (500 mg). 5. Postop fever. Incision is dry and intact. Flap is soft and healing satisfactory. No clinical evidence of hematoma. Continue dry dressings daily with antibiotic ointment. Operative culture shows Corynebacterium striatum and Anaerobic cocci in the soft tissue and Anaerobic cocci in the bone. Continue Unasyn. Pathology is positive for acute and chronic osteomyelitis. She will need 6 weeks of IV Unasyn. Patient had diverting colostomy yesterday. Patient had a postop fever of 101.3. Probable atelectasis. Encourage incentive spirometry. CXR was done which showed no acute cardiopulmonary disease. Urinalysis is pending. She recently had her giordano changed before her surgery. Her pulse after surgery is in the 110's-120's. She is dehydrated as her I's/O's are negative over 10 liters. I increased her IV fluids and gave her a fluid bolus. Prealbumin was 16.2. Encourage nutritional supplementation with protein to help the healing process. She will need to be on 6 weeks of bedrest on a specialty bed (low air loss bed). ECF evaluation in process. Awaiting a precert. After discharge, will [facility]20 for suture removal and removal of the drains. She will need to travel on a stretcher in an ambulance as she will be on bedrest.
--- NOTE | 2020-06-07 17:35 | RAD_ITS ---
STUDY: X-RAY CHEST REASON FOR EXAM: Female, 65 years old. Fever. Right ischial pressure sore. TECHNIQUE: Single AP portable view of the chest. COMPARISON: November 05, 2019. FINDINGS: The lungs are clear and expanded. There is no demonstrated pleural abnormality. Normal size heart. Normal mediastinum and yfn. Normal visualized pulmonary arteries. There is atherosclerotic calcification of the aortic arch with tortuosity. There is dextroscoliosis degenerative changes of the thoracic spine. Normal visualized ribs, clavicles, and shoulders. Surgical clips are again seen in the right axilla with absence of the right breast shadow. There is no demonstrated abnormality of the visualized soft tissue structures of the upper abdomen. RAD/Chest 1 View (Portable) IMPRESSION: No acute cardiopulmonary disease or major interval change. Electronically Signed: Trevor Palmer DO at 21:44 EDT Tel [phone], Service support ,
--- NOTE | 2020-06-07 17:39 | NURSING ---
LATE ENTRY - 1530 PTS TEMP 101.3 - DR ABDALLA HERE SEEING PT & MADE AWARE.
[2020-06-07] MEDS: 0.9% Saline Lock 10 ML Syringe IV (20:12)
[2020-06-07 20:38] LABS: Bacteria 0 SEEN /hpf (None Seen); Mucous, Urine 0 SEEN /hpf (<or=2+)
[2020-06-07 20:42] LABS: Color, Urine Yellow (Yellow); Glucose, Dipstick 100 mg/dl (Normal); Ketone-Dipstick Negative (Negative); Leukocyte Esterase-Dipstick 25 /ul (Negative); Nitrite-Dipstick Negative (Negative); Occult Blood-Urine 50 /ul (Negative); Protein-Dipstick Negative (Negative); Specific Gravity, Urine 1.005 (1.002-1.030); Urine Bilirubin Dipstick Negative (Negative); Urine Clarity Sl. Cloudy (Clear); Urine Urobilinogen Normal (Normal)
[2020-06-07 20:54] LABS: Red Blood Cells-Urine 0-5 SEEN /hpf (0-5); Squamous Epithelial Cells - UA 0-5 SEEN /hpf (5-10); White Blood Cells 0-5 SEEN /hpf (0-5)
[2020-06-07] MEDS: Metoprolol Tartrate 25 MG Tablet PO (21:51)
[2020-06-07] MEDS: 0.9% Normal Saline 1,000 ML 150 ML IV (22:53)
[2020-06-08 03:24] VITALS: BP 98/53; PULSE 100; RESP 18; TEMP 37.6; O2SAT 94
[2020-06-08] MEDS: proMETHazine 25 MG/ML Syringe IV ×3 (03:31→14:20)
[2020-06-08] MEDS: Acetaminophen 325 MG Tablet 650 MG PO (03:36)
[2020-06-08] MEDS: Baclofen 10 MG Tablet 20 MG PO (03:50)
[2020-06-08] MEDS: 0.9% Normal Saline 1,000 ML 150 ML IV ×3 (05:23→19:39)
[2020-06-08] MEDS: 0.9% Saline Lock 10 ML Syringe IV ×3 (05:23→14:20)
[2020-06-08 06:57] LABS: Absolute Lymphocyte Count 2.07 X10^3/uL (0.83-4.51); Absolute Neutrophil Count 15.7 X10^3/uL (2.0-7.7); Basophil# 0.04 X10^3/uL; Basophil% 0.2 % (0-1); Eosinophil# 0.06 X10^3/uL; Eosinophils% 0.3 % (0-5); Hematocrit 34.8 % (37-47); Hemoglobin 10.8 g/dL (12.0-15.0); Lymphocyte # 2.07 X10^3/ul (4.0); Lymphocyte % 11.1 % (19-41); Mean Corpuscular Hgb 26.9 pg (27.0-32.0); Mean Corpuscular Volume 86.8 fL (81-99); Mean Platelet Vol. 9.4 fl (6.2-12.0); Monocyte% 3.2 % (0-10); NRBC Flagged by Analyzer 0 % (0-5); Neutrophil # 15.69 X10^3/uL (2.7-7.7); Neutrophil % 84.6 % (47-70); Platelet Count 518 K/mm3 (150-450); RBC Distribution Width CV 14.6 % (11.6-14.6); Red Blood Count 4.01 M/mm3 (4.2-5.4); White Blood Count 18.6 K/mm3 (4.4-11.0)
--- NOTE | 2020-06-08 07:53 | RAD_ITS ---
STUDY: X-RAY - ABDOMEN/PELVIS REASON FOR EXAM: Female, 65 years old. Ileus. TECHNIQUE: Two AP supine views of the abdomen and pelvis. COMPARISON: None. FINDINGS: There is elevation right hemidiaphragm. Shift of the heart into the left hemithorax. There is air within mildly distended loops of both colon and small bowel. There is no obvious obstruction. There is no demonstrated free abdominal air. The visualized liver, spleen and kidneys are grossly normal in size and morphology. Normal soft tissue structures. There are diffuse degenerative changes of the visualized lumbar spine. RAD/Abdomen Single View (Portable) IMPRESSION: Findings most suggestive of ileus. Electronically Signed: Trevor Palmer DO at 13:30 EDT Tel [phone], Service support ,
--- NOTE | 2020-06-08 07:54 | PCM.PN.SRG ---
Subjective: Patient reports that she is not passing any flatus in the colostomy bag. She is having nausea but no vomiting. She is having left lower quadrant abdominal pain. - Physical Exam Vitals/I&O's: Vital Signs Temp Pulse Resp BP Pulse Ox 99.7 F H 100 18 98/53 L 94 06/08/20 03:24 06/08/20 03:24 06/08/20 03:24 06/08/20 03:24 06/08/20 03:24 Oxygen Flow Rate (L/min) 2 Oxygen Delivery Method Room Air Weight: 176 lb 9.444 oz Body Mass Index (BMI) 27.6 Intake and Output for Last 24 Hours 06/06/20 06/07/20 06/08/20 23:59 23:59 23:59 Intake Total 1757 / 1757 4417 / 4817 1487 / 1487 Output Total 4080 / 4080 2800 / 4050 1900 / 1900 Balance -2323 / -2323 1617 / 767 -413 / -413 General: Alert, Oriented x3 Neck: No JVD Abdomen: Soft, Distended, Tender Laboratory Results 06/07/20 11:02: WBC 17.8 H, RBC 3.99 L, Hgb 10.7 L, Hct 34.2 L, MCV 85.7, MCH 26.8 L, MCHC 31.3 L, RDW Std Deviation 45.7 H, RDW Coeff of Homer 14.6, Plt Count 485 H, MPV 9.2, Immature Gran % (Auto) 0.400, Neut % (Auto) 88.6 H, Lymph % (Auto) 8.8 L, [place] % (Auto) 2.0, Eos % (Auto) 0.1, Baso % (Auto) 0.1, Absolute Neuts (auto) 15.8 H, Absolute Lymphs (auto) 1.56, Nucleated RBC % 0 06/07/20 11:02: Sodium 137, Potassium 3.2 L, Chloride 104, Carbon Dioxide 27.0, Anion Gap 6, BUN 7, Creatinine 0.57, Estim Creat Clear Calc 95.69, Est GFR (MDRD) Af Amer 137, Est GFR (MDRD) Non-Af 113, BUN/Creatinine Ratio 12.3, Glucose 186 H, Calcium 8.0 L 06/07/20 20:30: Urine Color Yellow, Urine Clarity Sl. Cloudy, Urine pH 7.0, Ur Specific [place] 1.005, Urine Protein Negative, Urine Glucose (UA) 100 H, Urine Ketones Negative, Urine Occult Blood 50 H, Urine Nitrite Negative, Urine Bilirubin Negative, Urine Urobilinogen Normal, Ur Leukocyte Esterase 25 H, Urine RBC 0-5 SEEN, Urine WBC 0-5 SEEN, Ur Squamous Epith Cells 0-5 SEEN, Urine Bacteria 0 SEEN, Urine Mucus 0 SEEN 06/08/20 06:14: WBC 18.6 H, RBC 4.01 L, Hgb 10.8 L, Hct 34.8 L, MCV 86.8, MCH 26.9 L, MCHC 31.0 L, RDW Std Deviation 47.0 H, RDW Coeff of Homer 14.6, Plt Count 518 H, MPV 9.4, Immature Gran % (Auto) 0.600, Neut % (Auto) 84.6 H, Lymph % (Auto) 11.1 L, [place] % (Auto) 3.2, Eos % (Auto) 0.3, Baso % (Auto) 0.2, Absolute Neuts (auto) 15.7 H, Absolute Lymphs (auto) 2.07, Nucleated RBC % 0 06/08/20 06:14: Sodium Pending, Potassium Pending, Chloride Pending, Carbon Dioxide Pending, Anion Gap Pending, BUN Pending, Creatinine Pending, Est GFR (MDRD) Af Amer Pending, Est GFR (MDRD) Non-Af Pending, BUN/Creatinine Ratio Pending, Glucose Pending, Calcium Pending Current Medications Acetaminophen (Tylenol) 650 mg PO Q6H PRN PRN PRN Reason: fever/Noncardiac pain() Last Admin: 06/08/20 03:36 Dose: 650 mg Documented by: Acetic Acid (Acetic Acid) 60 ml IR QHS [facility] Last Admin: 06/07/20 15:43 Dose: 60 ml Documented by: Baclofen (Lioresal) 20 mg PO Q8H PRN PRN PRN Reason: MUSCLE SPASMS Last Admin: 06/08/20 03:50 Dose: 20 mg Documented by: Cholestyramine Resin (Questran 4gm Packet) 1.3 gm PO DAILY [facility] Last Admin: 06/07/20 11:19 Dose: 1.3 gm Documented by: Diazepam (Valium) 5 mg PO 4X/DAY PRN PRN PRN Reason: SPASMS Last Admin: 06/05/20 22:37 Dose: 5 mg Documented by: Docusate Sodium (Colace) 100 mg PO BID [facility] Last Admin: 06/07/20 21:51 Dose: 100 mg Documented by: Enoxaparin Sodium (Lovenox) 40 mg SC DAILY [facility] Last Admin: 06/07/20 10:00 Dose: 40 mg Documented by: Fluconazole (Diflucan) 200 mg PO Mo@1000 [facility] Last Admin: 06/03/20 11:31 Dose: 200 mg Documented by: Sodium Chloride () 250 mls @ 15 mls/hr IV .[id number] PRN PRN Reason: Saline Flush Last Infusion: 06/04/20 15:30 Dose: Infused Documented by: Ampicillin Sodium/Sulbactam (Sodium 3 gm/ Sodium Chloride) 112 mls @ 150 mls/hr IV Q8 [facility] Last Infusion: 06/08/20 06:31 Dose: Infused Documented by: Sodium Chloride () 1,000 mls @ 150 mls/hr IV .Q6H40M [facility] Last Admin: 06/08/20 05:23 Dose: 150 mls/hr Documented by: Lactobacillus Acidophilus (Acidophilus) 1 tablet PO 4X/DAY [facility] Last Admin: 06/07/20 21:51 Dose: 1 tablet Documented by: Letrozole (Femara) 2.5 mg PO DAILY [facility] Last Admin: 06/07/20 09:59 Dose: 2.5 mg Documented by: Magnesium Hydroxide (Milk Of Magnesia) 30 ml PO BID [facility] Last Admin: 06/07/20 21:56 Dose: 30 ml Documented by: Metoprolol Tartrate (Lopressor (Beta David)) 25 mg PO BID [facility] Last Admin: 06/07/20 21:51 Dose: 25 mg Documented by: Morphine Sulfate () 2 - 4 mg IV Q2H PRN PRN PRN Reason: Pain Score 4-10/10 Last Admin: 06/07/20 11:34 Dose: 2 mg Documented by: Morphine Sulfate () 2 - 4 mg IV Q2H PRN PRN PRN Reason: Pain Score 4-10/10 Mupirocin (Bactroban) 1 applic TOPICAL DAILY [facility]; Protocol Last Admin: 06/07/20 09:58 Dose: 1 applicatio Documented by: Nitrofurantoin Macrocrystals (Macrobid) 100 mg PO DAILYCM [facility] Last Admin: 06/07/20 09:58 Dose: 100 mg Documented by: Nutritional Formula ([place] - [place] Flavor) 1 packet PO BIDCM [facility] Last Admin: 06/07/20 18:35 Dose: 1 packet Documented by: Nutritional Formula (Lactose Free) (Ensure Clear) 120 ml PO TIDCM [facility] Last Admin: 06/07/20 18:36 Dose: 120 ml Documented by: Nystatin (Mycostatin Powder) 1 applic TOPICAL BID [facility]; Protocol Last Admin: 06/07/20 21:53 Dose: 1 applicatio Documented by: Oxybutynin Chloride (Ditropan) 5 mg PO BID [facility] Last Admin: 06/07/20 21:51 Dose: 5 mg Documented by: Oxycodone HCl (Oxyir) 10 mg PO Q4H PRN PRN PRN Reason: Pain Score 6-10/10 Promethazine HCl (Phenergan) 25 mg IV Q4H PRN PRN PRN Reason: NAUSEA/VOMITING Last Admin: 06/08/20 03:31 Dose: 25 mg Documented by: Sodium Chloride () 10 - 40 ml IV UD PRN PRN Reason: SALINE FLUSH Last Admin: 06/08/20 05:23 Dose: 10 ml Documented by: Medical Necessity - Tobacco Use Smoking Status: Never smoker Assessment/Plan All Active Problems Decubitus ulcer of coccygeal region, stage 2 (Acute) Pressure injury, stage 4, with gangrene (Acute) History of breast cancer (Acute) Leukocytosis (Acute) Sepsis (Acute) 65-year-old female status post sigmoid colectomy with end colostomy. 1. Patient is likely having a postoperative ileus. She is having pain in the left lower quadrant with no guarding. Her abdomen is distended. She does feel nauseated. I will get a KUB to confirm ileus. If she is severely dilated I would recommend returning to n.p.o. status. Encourage incentive spirometer. Patient has a low-grade temperature but her white count remained stable. Patient is on Unasyn. Patient was tachycardic yesterday but this responded to a bolus and her heart rate is normal today. Gabriele Coyne MD Pager: [facility] [address] [place] [address], [facility] [address] [place] [address] Office:
[2020-06-08 08:23] LABS: Anion Gap 6 (5-15); BUN 9 mg/dL (7-18); BUN/Creat Ratio 28.8 RATIO (10-20); Chloride 103 mmol/L (98-107); Creatinine, Serum 0.31 mg/dL (0.55-1.02); EST Glomerular Filtration Rate 226 mL/min (>60); Est Glom Filt Rate - Afr Amer 273 mL/min (>60); Estimated Creatinine Clearance 175.94 ml/min; Glucose 132 mg/dL (74-106); Potassium 3.2 mmol/L (3.5-5.1); Sodium Level 137 mmol/L (136-145)
[2020-06-08 09:21] VITALS: BP 91/56; PULSE 53; RESP 16; TEMP 37.2; O2SAT 96
[2020-06-08] MEDS: Enoxaparin 40 MG/0.4 ML Syringe SC (09:41)
[2020-06-08] MEDS: Mupirocin Ointment 22gm Tube 1 APPLIC TOPICAL (09:52)
[2020-06-08] MEDS: Potassium Chloride 10mEq/100mL 10 MEQ/100 ML IV.SOLN. 100 MEQ IV BOLUS ×2 (12:07→20:24)
[2020-06-08] MEDS: Nystatin Powder 15gm Bottle 1 APPLIC TOPICAL ×2 (12:10→20:45)
--- NOTE | 2020-06-08 13:02 | PN.SURG_ITS ---
Subjective: Postop #12 Patient states she finally had flatus in her colostomy. - Physical Exam Vitals/I&O's: Vital Signs Temp Pulse Resp BP Pulse Ox 99.7 F H 100 18 98/53 L 94 06/08/20 03:24 06/08/20 03:24 06/08/20 03:24 06/08/20 03:24 06/08/20 03:24 Oxygen Flow Rate (L/min) 2 Oxygen Delivery Method Room Air Weight: 176 lb 9.444 oz Body Mass Index (BMI) 27.6 Intake and Output for Last 24 Hours 06/06/20 06/07/20 06/08/20 23:59 23:59 23:59 Intake Total 1757 / 1757 4417 / 4817 2487 / 2487 Output Total 4080 / 4080 2800 / 4050 1900 / 1900 Balance -2323 / -2323 1617 / 767 587 / 587 Drainage 10 ml today. General: Alert, Oriented x3 HEENT: PERRLA, EOMI Oral: Moist Mucosa Neck: Supple Skin: Incision - right ischial incision dry and intact. Flap is soft and healing satisfactory. Redressed with antibiotic ointment and gauze and compression yolanda wrap. Neurological: Cranial nerves II-XII grossly intact Psych/Mental Status: Normal Affect, Appropriate Laboratory Results 06/07/20 20:30: Urine Color Yellow, Urine Clarity Sl. Cloudy, Urine pH 7.0, Ur Specific [place] 1.005, Urine Protein Negative, Urine Glucose (UA) 100 H, Urine Ketones Negative, Urine Occult Blood 50 H, Urine Nitrite Negative, Urine Bilirubin Negative, Urine Urobilinogen Normal, Ur Leukocyte Esterase 25 H, Urine RBC 0-5 SEEN, Urine WBC 0-5 SEEN, Ur Squamous Epith Cells 0-5 SEEN, Urine Bacteria 0 SEEN, Urine Mucus 0 SEEN 06/08/20 06:14: WBC 18.6 H, RBC 4.01 L, Hgb 10.8 L, Hct 34.8 L, MCV 86.8, MCH 26.9 L, MCHC 31.0 L, RDW Std Deviation 47.0 H, RDW Coeff of [place] 14.6, Plt Count 518 H, MPV 9.4, Immature Gran % (Auto) 0.600, Neut % (Auto) 84.6 H, Lymph % (Auto) 11.1 L, [place] % (Auto) 3.2, Eos % (Auto) 0.3, Baso % (Auto) 0.2, Absolute Neuts (auto) 15.7 H, Absolute Lymphs (auto) 2.07, Nucleated RBC % 0 06/08/20 06:14: Sodium 137, Potassium 3.2 L, Chloride 103, Carbon Dioxide 28.0, Anion Gap 6, BUN 9, Creatinine 0.31 L, Estim Creat Clear Calc 175.94, Est GFR (MDRD) Af Amer 273, Est GFR (MDRD) Non-Af 226, BUN/Creatinine Ratio 28.8 H, Glucose 132 H, Calcium 8.0 L Pathology - acute and chronic osteomyelitis. Current Medications Acetaminophen (Tylenol) 650 mg PO Q6H PRN PRN PRN Reason: fever/Noncardiac pain() Last Admin: 06/08/20 03:36 Dose: 650 mg Documented by: Acetic Acid (Acetic Acid) 60 ml IR QHS [facility] Last Admin: 06/07/20 15:43 Dose: 60 ml Documented by: Baclofen (Lioresal) 20 mg PO Q8H PRN PRN PRN Reason: MUSCLE SPASMS Last Admin: 06/08/20 03:50 Dose: 20 mg Documented by: Cholestyramine Resin (Questran 4gm Packet) 1.3 gm PO DAILY [facility] Last Admin: 06/08/20 09:40 Dose: Not Given Documented by: Diazepam (Valium) 5 mg PO 4X/DAY PRN PRN PRN Reason: SPASMS Last Admin: 06/05/20 22:37 Dose: 5 mg Documented by: Docusate Sodium (Colace) 100 mg PO BID [facility] Last Admin: 06/08/20 09:39 Dose: Not Given Documented by: Enoxaparin Sodium (Lovenox) 40 mg SC DAILY [facility] Last Admin: 06/08/20 09:41 Dose: 40 mg Documented by: Fluconazole (Diflucan) 200 mg PO Mo@1000 [facility] Last Admin: 06/03/20 11:31 Dose: 200 mg Documented by: Sodium Chloride () 250 mls @ 15 mls/hr IV .[id number] PRN PRN Reason: Saline Flush Last Infusion: 06/04/20 15:30 Dose: Infused Documented by: Ampicillin Sodium/Sulbactam (Sodium 3 gm/ Sodium Chloride) 112 mls @ 150 mls/hr IV Q8 [facility] Last Infusion: 06/08/20 06:31 Dose: Infused Documented by: Sodium Chloride () 1,000 mls @ 150 mls/hr IV .Q6H40M [facility] Last Admin: 06/08/20 12:07 Dose: 150 mls/hr Documented by: Potassium Chloride () 10 meq in 100 mls @ 100 mls/hr IV BOLUS Q8H [facility] Stop: 06/08/20 20:59 Last Admin: 06/08/20 12:07 Dose: 100 mls/hr Documented by: Lactobacillus Acidophilus (Acidophilus) 1 tablet PO 4X/DAY [facility] Last Admin: 06/08/20 09:39 Dose: Not Given Documented by: Letrozole (Femara) 2.5 mg PO DAILY [facility] Last Admin: 06/08/20 09:40 Dose: Not Given Documented by: Magnesium Hydroxide (Milk Of Magnesia) 30 ml PO BID [facility] Last Admin: 06/08/20 09:40 Dose: Not Given Documented by: Metoprolol Tartrate (Lopressor (Beta David)) 25 mg PO BID [facility] Last Admin: 06/08/20 09:40 Dose: Not Given Documented by: Morphine Sulfate () 2 - 4 mg IV Q2H PRN PRN PRN Reason: Pain Score 4-10/10 Last Admin: 06/07/20 11:34 Dose: 2 mg Documented by: Morphine Sulfate () 2 - 4 mg IV Q2H PRN PRN PRN Reason: Pain Score 4-10/10 Mupirocin (Bactroban) 1 applic TOPICAL DAILY [facility]; Protocol Last Admin: 06/08/20 09:52 Dose: 1 applicatio Documented by: Nitrofurantoin [facility]rocrystals ([facility]bid) [facility] Last Admin: 06/08/20 09:39 Dose: Not Given Documented by: Nutritional Formula ([place] - [place] Flavor) [facility] Last Admin: 06/08/20 09:26 Dose: Not Given Documented by: Nutritional Formula (Lactose Free) (Ensure Clear) 120 ml PO TIDCM [facility] Last Admin: 06/08/20 09:26 Dose: Not Given Documented by: Nystatin (Mycostatin Powder) 1 applic TOPICAL BID [facility]; Protocol Last Admin: 06/08/20 12:10 Dose: 1 applicatio Documented by: Oxybutynin Chloride (Ditropan) 5 mg PO BID [facility] Last Admin: 06/08/20 09:39 Dose: Not Given Documented by: Oxycodone HCl (Oxyir) 10 mg PO Q4H PRN PRN PRN Reason: Pain Score 6-10/10 Promethazine HCl (Phenergan) 25 mg IV Q4H PRN PRN PRN Reason: NAUSEA/VOMITING Last Admin: 06/08/20 09:37 Dose: 25 mg Documented by: Sodium Chloride () 10 - 40 ml IV UD PRN PRN Reason: SALINE FLUSH Last Admin: 06/08/20 09:37 Dose: 10 ml Documented by: Medical Necessity - Tobacco Use Smoking Status: Never smoker Assessment/Plan All Active Problems Decubitus ulcer of coccygeal region, stage 2 (Acute) Pressure injury, stage 4, with gangrene (Acute) History of breast cancer (Acute) Leukocytosis (Acute) Sepsis (Acute) 1. Right ischial pressure sore, Stage IV. 2. Acute and chronic osteomyelitis. 3. Multiple sclerosis. 4. s/p excision right ischial pressure sore, Stage IV, with partial ostectomy for osteomyelitis and reconstruction with right hamstrings myocutaneous advancement flap and placement AmnioFill placental connective tissue powder (500 mg). 5. Postop fever, resolving. Incision is dry and intact. Flap is soft and healing satisfactory. No clinical evidence of hematoma. Continue dry dressings daily with antibiotic ointment. Operative culture shows Corynebacterium striatum and Anaerobic cocci in the soft tissue and Anaerobic cocci in the bone. Continue Unasyn. Pathology is positive for acute and chronic osteomyelitis. She will need 6 weeks of IV Unasyn. Patient had diverting colostomy 2 days ago on . Patient had flatus today. Patient had a postop fever of 101.3. This morning it was 99.7. Probable atelectasis. Encourage incentive spirometry. CXR was done which showed no acute cardiopulmonary disease. Urinalysis was negative. She recently had her giordano changed before her surgery. Her pulse after surgery is in the 110's-120's. She is dehydrated as her I's/O's are negative over 10 liters. I increased her IV fluids and gave her a fluid bolus. This morning the pulse is 100. Prealbumin was 16.2. Encourage nutritional supplementation with protein to help the healing process. She will need to be on 6 weeks of bedrest on a specialty bed (low air loss bed). ECF evaluation in process. Awaiting a precert. After discharge, [facility] for suture removal and removal of the drains. She will need to travel on a stretcher in an ambulance as she will be on bedrest.
[2020-06-08 14:49] VITALS: BP 116/69; PULSE 112; RESP 18; TEMP 36.9; O2SAT 94
[2020-06-08] MEDS: Oxymetazoline 0.05% 1 SPRAY SPRAY.BTL 2 SPRAY NASAL (18:41)
[2020-06-08 18:48] VITALS: PULSE 123; RESP 20
[2020-06-08] MEDS: Lidocaine 4% 5 ML Ampul 2 ML INHALATION (18:48)
--- NOTE | 2020-06-08 19:29 | NURSING ---
Left message for patients letting him know that patient had thrown up again and an NG tube had been placed. I also let him know that the Pt said she would not be calling him at 9pm.
--- NOTE | 2020-06-08 19:35 | RAD_ITS ---
STUDY: X-RAY - ABDOMEN/PELVIS REASON FOR EXAM: Female, 65 years old. Evaluate nasogastric tube position. TECHNIQUE: Single AP view of the abdomen / pelvis. COMPARISON: None. FINDINGS: There is a nasogastric tube with its tip below the level of diaphragm indication of the gastric fundus. There are nonspecific somewhat dilated bowel loops in the upper abdomen. The lower abdomen and pelvic region are not included on this exam. Mild stranding in the left lung base is seen. Normal soft tissue structures. RAD/Abdomen Single View (Portable) IMPRESSION: Nasogastric tube with the tip in the region of the stomach. Electronically Signed: Ford Burnette MD at 21:07 EDT Tel , Service support ,
[2020-06-08 20:30] VITALS: BP 110/75; PULSE 100; RESP 18; TEMP 37.7; O2SAT 93
[2020-06-08 21:58] VITALS: BP 110/75; PULSE 100
[2020-06-08] MEDS: Metoprolol Tartrate 25 MG Tablet PO (21:58)
[2020-06-08] MEDS: ACETIC ACID 1,000 ML IRRIG.SOLN 60 ML IR (22:02)
[2020-06-09] VITALS (8 sets, daily range): BP systolic 94–118; BP diastolic 53–68; PULSE 104–111; RESP 16–18; TEMP 36.9–37.2; O2SAT 92–95
[2020-06-09] MEDS: proMETHazine 25 MG/ML Syringe IV (03:15)
[2020-06-09] MEDS: 0.9% Normal Saline 1,000 ML 150 ML IV ×3 (04:27→20:07)
[2020-06-09 06:26] LABS: Absolute Lymphocyte Count 1.39 X10^3/uL (0.83-4.51); Absolute Neutrophil Count 22.5 X10^3/uL (2.0-7.7); Basophil# 0.05 X10^3/uL; Basophil% 0.2 % (0-1); Eosinophil# 0.01 X10^3/uL; Hematocrit 37.4 % (37-47); Hemoglobin 11.6 g/dL (12.0-15.0); Lymphocyte # 1.39 X10^3/ul (4.0); Lymphocyte % 5.7 % (19-41); Mean Corpuscular Hgb 26.4 pg (27.0-32.0); Mean Platelet Vol. 9.9 fl (6.2-12.0); Monocyte# 0.53 X10^3/uL; Monocyte% 2.2 % (0-10); NRBC Flagged by Analyzer 0 % (0-5); Neutrophil # 22.46 X10^3/uL (2.7-7.7); Neutrophil % 91.2 % (47-70); POSITIVE COUNT YES; POSITIVE DIFFERENTIAL YES; POSITIVE MORPHOLOGY YES; RBC Distribution Width CV 14.6 % (11.6-14.6); RBC Distribution Width SD 45.1 fl (35.1-43.9); White Blood Count 24.6 K/mm3 (4.4-11.0)
--- NOTE | 2020-06-09 06:30 | RAD_ITS ---
STUDY: X-RAY - ABDOMEN/PELVIS REASON FOR EXAM: Female, 65 years old. ILEUS TECHNIQUE: Two AP supine views of the abdomen and pelvis. COMPARISON: 06/08/2020 FINDINGS: Stable appearance of an NG tube, tip is in the body the stomach Borderline distended air-filled loops of small and large bowel in all 4 quadrants of the abdomen consistent with ileus, no significant interval change. There is no demonstrated free abdominal air. The visualized liver, spleen and kidneys are grossly normal in size and morphology. Normal soft tissue structures. There are diffuse degenerative changes of the visualized lumbar spine. RAD/Abdomen Single View (Portable) IMPRESSION: Persistent ileus, no interval change since the previous study Electronically Signed: Everardo Bello MD at 8:23 EDT , Service support ,
[2020-06-09 07:03] LABS: Differential Indicated SCAN CRITERIA MET
[2020-06-09 07:04] LABS: Platelet Estimate MOD INC (ADEQ)
[2020-06-09 07:14] LABS: Anion Gap 7 (5-15); BUN 13 mg/dL (7-18); BUN/Creat Ratio 45.8 RATIO (10-20); Calcium,Total 8.1 mg/dL (8.5-10.1); Chloride 105 mmol/L (98-107); Creatinine, Serum 0.28 mg/dL (0.55-1.02); EST Glomerular Filtration Rate 253 mL/min (>60); Est Glom Filt Rate - Afr Amer 306 mL/min (>60); Estimated Creatinine Clearance 194.79 ml/min; Glucose 132 mg/dL (74-106); Potassium 3.8 mmol/L (3.5-5.1); Sodium Level 137 mmol/L (136-145)
--- NOTE | 2020-06-09 08:54 | PN.SURG_ITS ---
Subjective: Patient reports that her pain is improved since yesterday. She did have vomiting around her NG tube this morning. - Physical Exam Vitals/I&O's: Vital Signs Temp Pulse Resp BP Pulse Ox 98.4 F 104 H 16 117/60 92 06/09/20 03:05 06/09/20 04:21 06/09/20 03:05 06/09/20 03:05 06/09/20 03:05 Oxygen Flow Rate (L/min) 2 Oxygen Delivery Method Room Air Weight: 176 lb 9.444 oz Body Mass Index (BMI) 27.6 Intake and Output for Last 24 Hours 06/07/20 06/08/20 06/09/20 23:59 23:59 23:59 Intake Total 4417 / 4817 4111.5 / 4161.5 1107.5 / 1107.5 Output Total 2800 / 4050 3235 / 4107 1847 / 1847 Balance 1617 / 767 876.5 / 54.5 -739.5 / -739.5 General: Alert, Oriented x3 Neck: No JVD Cardiovascular: Regular rate, Regular Rhythm Abdomen: Soft, Distended, Tender - Appropriate mild tenderness, - - Stoma pink with stool in the colostomy bag Laboratory Results 06/09/20 05:28: WBC 24.6 H, RBC 4.40, Hgb 11.6 L, Hct 37.4, MCV 85.0, MCH 26.4 L , MCHC 31.0 L, RDW Std Deviation 45.1 H, RDW Coeff of [place] 14.6, Plt Count , MPV 9.9, Immature Gran % (Auto) 0.700, Neut % (Auto) 91.2 H, Lymph % (Auto) 5.7 L, [place] % (Auto) 2.2, Eos % (Auto) 0.0, Baso % (Auto) 0.2, Absolute Neuts (auto) 22.5 H, Absolute Lymphs (auto) 1.39, Nucleated RBC % 0, Platelet Estimate MOD INC 06/09/20 05:28: Sodium 137, Potassium 3.8, Chloride 105, Carbon Dioxide 25.0, Anion Gap 7, BUN 13, Creatinine 0.28 L, Estim Creat Clear Calc 194.79, Est GFR (MDRD) Af Amer 306, Est GFR (MDRD) Non-Af 253, BUN/Creatinine Ratio 45.8 H, Glucose 132 H, Calcium 8.1 L Current Medications Acetaminophen (Tylenol Liquid) 650 mg NG Q6H PRN PRN PRN Reason: fever/Noncardiac pain(4-1010) Acetic Acid (Acetic Acid) 60 ml IR QHS [facility] Last Admin: 06/08/20 22:02 Dose: 60 ml Documented by: Baclofen (Lioresal) 20 mg NG Q8H PRN PRN PRN Reason: MUSCLE SPASMS Cholestyramine Resin (Questran 4gm Packet) 1.3 gm NG DAILY [facility] Diazepam (Valium) 5 mg NG 4X/DAY PRN PRN PRN Reason: SPASMS Docusate Sodium (Colace Syrup) 100 mg NG BID [facility] Enoxaparin Sodium (Lovenox) 40 mg SC DAILY [facility] Last Admin: 06/08/20 09:41 Dose: 40 mg Documented by: Fluconazole (Diflucan) 200 mg NG Mo@1000 [facility] Sodium Chloride () 250 mls @ 15 mls/hr IV .[id number] PRN PRN Reason: Saline Flush Last Infusion: 06/04/20 15:30 Dose: Infused Documented by: Sodium Chloride () 1,000 mls @ 150 mls/hr IV .Q6H40M [facility] Last Admin: 06/09/20 04:27 Dose: 150 mls/hr Documented by: Piperacillin Sod/Tazobactam (Sod 3.375 gm/ Sodium Chloride) 50 mls @ 12.5 mls/hr IV Q8 [facility] Last Admin: 06/09/20 06:21 Dose: 12.5 mls/hr Documented by: Lactobacillus Acidophilus (Acidophilus) 1 tablet NG 4X/DAY [facility] Letrozole (Femara) 2.5 mg PO DAILY [facility] Last Admin: 06/08/20 09:40 Dose: Not Given Documented by: Magnesium Hydroxide (Milk Of Magnesia) 30 ml NG BID [facility] Metoprolol Tartrate (Lopressor (Beta David)) 25 mg NG BID [facility] Morphine Sulfate () 2 - 4 mg IV Q2H PRN PRN PRN Reason: Pain Score 4-10/10 Last Admin: 06/07/20 11:34 Dose: 2 mg Documented by: Morphine Sulfate () 2 - 4 mg IV Q2H PRN PRN PRN Reason: Pain Score 4-10/10 Mupirocin (Bactroban) 1 applic TOPICAL DAILY [facility]; Protocol Last Admin: 06/08/20 09:52 Dose: 1 applicatio Documented by: Nitrofurantoin Macrocrystals (Macrobid) 100 mg NG DAILYCM [facility] Nutritional Formula (Domingo - [place] Flavor) 1 packet NG BIDCM [facility] Nutritional Formula (Lactose Free) (Ensure Clear) 120 ml PO TIDCM [facility] Last Admin: 06/09/20 07:06 Dose: Not Given Documented by: Nystatin (Mycostatin Powder) 1 applic TOPICAL BID [facility]; Protocol Last Admin: 06/08/20 20:45 Dose: 1 applicatio Documented by: Oxybutynin Chloride (Ditropan) 5 mg NG BID [facility] Oxycodone HCl (Oxyir) 10 mg NG Q4H PRN PRN PRN Reason: Pain Score 6-10/10 Promethazine HCl (Phenergan) 25 mg IV Q4H PRN PRN PRN Reason: NAUSEA/VOMITING Last Admin: 06/09/20 03:15 Dose: 25 mg Documented by: Sodium Chloride () 10 - 40 ml IV UD PRN PRN Reason: SALINE FLUSH Last Admin: 06/08/20 14:20 Dose: 10 ml Documented by: Medical Necessity - Tobacco Use Smoking Status: Never smoker Assessment/Plan All Active Problems Decubitus ulcer of coccygeal region, stage 2 (Acute) Pressure injury, stage 4, with gangrene (Acute) History of breast cancer (Acute) Leukocytosis (Acute) Sepsis (Acute) 65-year-old female with postoperative ileus after sigmoid colectomy with end colostomy 1. Patient has postoperative ileus due to surgery. The patient did have vomiting yesterday and an NG was placed. She had vomiting around her NG tube early this morning. I disconnected the suction tubing from the NG tube and cleared the tubing and reconnected the NG and got 500 cc of green-brown fluid. She is very distended this morning but she says her pain is actually improved since yesterday. Her white count has gone up as well but she does believe that she may have aspirated during her vomiting. 2. Continue broad-spectrum antibiotics. Continue NG tube until NG output has cleared. She is starting to have stool in her colostomy bag. Her abdomen is not very tender but it is distended. KUB shows ileus. Recheck labs in the morning. Currently she is hemodynamically stable. Gabriele Coyne MD Pager: [facility] [address] [place] [address], [address] [place] [phone] Office:
[2020-06-09] MEDS: Metoprolol Tartrate 25 MG Tablet NG ×2 (09:18→22:35)
[2020-06-09] MEDS: Magnesium Hydroxide 30 ML UDC NG ×2 (09:19→22:34)
[2020-06-09] MEDS: Docusate Sodium 100 MG/10 ML UDC NG ×2 (09:19→22:34)
[2020-06-09] MEDS: Oxybutynin 5 MG Tablet NG ×2 (09:19→22:35)
[2020-06-09] MEDS: Ensure Clear 120 ML Liquid PO (09:19)
[2020-06-09] MEDS: Nystatin Powder 15gm Bottle 1 APPLIC TOPICAL ×2 (09:20→20:22)
[2020-06-09] MEDS: Nitrofurantoin Macrocrystals 100 MG Capsule NG (09:20)
[2020-06-09] MEDS: Enoxaparin 40 MG/0.4 ML Syringe SC (09:21)
--- NOTE | 2020-06-09 13:51 | RAD_ITS ---
STUDY: X-RAY CHEST REASON FOR EXAM: Female, 65 years old. aspiration, has elevating WBC TECHNIQUE: AP COMPARISON: 06/07/2020 FINDINGS: Enteric tube extends to the stomach with side-port at the level of the left hemidiaphragm. Airspace consolidation in the medial right lung base is new since the prior study. Persistent opacity in the left lower lobe since 06/07/2020. There is no demonstrated pleural abnormality. There is mild cardiac enlargement. Normal mediastinum and yfn. Normal visualized pulmonary arteries. There is atherosclerotic calcification of the aortic arch with tortuosity. There are surgical clips of the right axilla. Scoliosis directed towards the right of the thoracic spine. There is no demonstrated abnormality of the visualized soft tissue structures of the upper abdomen. RAD/Chest 1 View (Portable) IMPRESSION: 1. Developing right lower lobe airspace disease. Stable left lower lobe infiltrate or atelectasis. 2. Enteric tube. Recommend advancing 5-centimeters. Electronically Signed: Jason Navarro MD ([place]) at 14:55 EDT , Service support ,
[2020-06-09] MEDS: Cholestyramine/Sucrose 4 GM/PACKET 1.3 GM NG (14:52)
--- NOTE | 2020-06-09 17:47 | PN.SURG_ITS ---
Subjective: Postop #13 Patient had some vomiting this morning. Feels little better now. - Physical Exam Vitals/I&O's: Vital Signs Temp Pulse Resp BP Pulse Ox 99.0 F 108 H 18 94/53 L 94 06/09/20 14:41 06/09/20 14:41 06/09/20 14:41 06/09/20 14:41 06/09/20 14:41 Oxygen Flow Rate (L/min) 2 Oxygen Delivery Method Room Air Weight: 176 lb 9.444 oz Body Mass Index (BMI) 27.6 Intake and Output for Last 24 Hours 06/07/20 06/08/20 06/09/20 23:59 23:59 23:59 Intake Total 4417 / 4817 4111.5 / 4161.5 2427.5 / 2427.5 Output Total 2800 / 4050 3235 / 4107 2972 / 2972 Balance 1617 / 767 876.5 / 54.5 -544.5 / -544.5 Drainage 12 ml today. General: Alert, Oriented x3 HEENT: PERRLA, EOMI Oral: Moist Mucosa Neck: Supple Skin: Incision - right ischial incision dry and intact. Flap is soft and healing satisfactory. Redressed with antibiotic ointment and gauze and compression yolanda wrap. Neurological: Cranial nerves II-XII grossly intact Psych/Mental Status: Normal Affect, Appropriate Microbiology Past 72 Hours 06/07/20 20:30 Suprapubic Tap Urine Culture - Preliminary Yeast Like Organism Pathology - acute and chronic osteomyelitis. Laboratory Results 06/09/20 05:28: WBC 24.6 H, RBC 4.40, Hgb 11.6 L, Hct 37.4, MCV 85.0, MCH 26.4 L , MCHC 31.0 L, RDW Std Deviation 45.1 H, RDW Coeff of Homer 14.6, Plt Count , MPV 9.9, Immature Gran % (Auto) 0.700, Neut % (Auto) 91.2 H, Lymph % (Auto) 5.7 L, [place] % (Auto) 2.2, Eos % (Auto) 0.0, Baso % (Auto) 0.2, Absolute Neuts (auto) 22.5 H, Absolute Lymphs (auto) 1.39, Nucleated RBC % 0, Platelet Estimate MOD INC 06/09/20 05:28: Sodium 137, Potassium 3.8, Chloride 105, Carbon Dioxide 25.0, Anion Gap 7, BUN 13, Creatinine 0.28 L, Estim Creat Clear Calc 194.79, Est GFR (MDRD) Af Amer 306, Est GFR (MDRD) Non-Af 253, BUN/Creatinine Ratio 45.8 H, Glucose 132 H, Calcium 8.1 L Diagnostic Data KUB X-Ray 06/09/20 06:30 IMPRESSION: Persistent ileus, no interval change since the previous study Electronically Signed: Everardo Bello MD at 8:23 EDT , Service support , Chest X-Ray 06/09/20 13:51 IMPRESSION: 1. Developing right lower lobe airspace disease. Stable left lower lobe infiltrate or atelectasis. 2. Enteric tube. Recommend advancing 5-centimeters. Electronically Signed: Jason Navarro MD ([place]) at 14:55 EDT , Service support , Current Medications Acetaminophen (Tylenol Liquid) 650 mg NG Q6H PRN PRN PRN Reason: fever/Noncardiac pain(-09/07) Acetic Acid (Acetic Acid) 60 ml IR QHS [facility] Last Admin: 06/08/20 22:02 Dose: 60 ml Documented by: Baclofen (Lioresal) 20 mg NG Q8H PRN PRN PRN Reason: MUSCLE SPASMS Cholestyramine Resin (Questran 4gm Packet) 1.3 gm NG DAILY [facility] Last Admin: 06/09/20 14:52 Dose: 1.3 gm Documented by: Diazepam (Valium) 5 mg NG 4X/DAY PRN PRN PRN Reason: SPASMS Docusate Sodium (Colace Syrup) 100 mg NG BID [facility] Last Admin: 06/09/20 09:19 Dose: 100 mg Documented by: Enoxaparin Sodium (Lovenox) 40 mg SC DAILY [facility] Last Admin: 06/09/20 09:21 Dose: 40 mg Documented by: Fluconazole (Diflucan) 200 mg NG Mo@1000 [facility] Sodium Chloride () 250 mls @ 15 mls/hr IV .[id number] PRN PRN Reason: Saline Flush Last Infusion: 06/04/20 15:30 Dose: Infused Documented by: Sodium Chloride () 1,000 mls @ 150 mls/hr IV .Q6H40M [facility] Last Admin: 06/09/20 12:23 Dose: 150 mls/hr Documented by: Piperacillin Sod/Tazobactam (Sod 3.375 gm/ Sodium Chloride) 50 mls @ 12.5 mls/hr IV Q8 [facility] Last Admin: 06/09/20 14:54 Dose: 12.5 mls/hr Documented by: Lactobacillus Acidophilus (Acidophilus) 1 tablet NG 4X/DAY [facility] Last Admin: 06/09/20 16:53 Dose: Not Given Documented by: Letrozole (Femara) 2.5 mg PO DAILY [facility] Last Admin: 06/09/20 09:21 Dose: 2.5 mg Documented by: Magnesium Hydroxide (Milk Of Magnesia) 30 ml NG BID [facility] Last Admin: 06/09/20 09:19 Dose: 30 ml Documented by: Metoprolol Tartrate (Lopressor (Beta David)) 25 mg NG BID [facility] Last Admin: 06/09/20 09:18 Dose: 25 mg Documented by: Morphine Sulfate () 2 - 4 mg IV Q2H PRN PRN PRN Reason: Pain Score 4-10/10 Last Admin: 06/07/20 11:34 Dose: 2 mg Documented by: Morphine Sulfate () 2 - 4 mg IV Q2H PRN PRN PRN Reason: Pain Score 4-10/10 Mupirocin (Bactroban) 1 applic TOPICAL DAILY [facility]; Protocol Last Admin: 06/08/20 09:52 Dose: 1 applicatio Documented by: Nitrofurantoin Macrocrystals (Macrobid) 100 mg NG DAILYCM [facility] Last Admin: 06/09/20 09:20 Dose: 100 mg Documented by: Nutritional Formula ([place]ingo - [place] Flavor) 1 packet NG BIDCM [facility] Last Admin: 06/09/20 16:53 Dose: Not Given Documented by: Nutritional Formula (Lactose Free) (Ensure Clear) 120 ml PO TIDCM [facility] Last Admin: 06/09/20 16:53 Dose: Not Given Documented by: Nystatin (Mycostatin Powder) 1 applic TOPICAL BID [facility]; Protocol Last Admin: 06/09/20 09:20 Dose: 1 applicatio Documented by: Oxybutynin Chloride (Ditropan) 5 mg NG BID [facility] Last Admin: 06/09/20 09:19 Dose: 5 mg Documented by: Oxycodone HCl (Oxyir) 10 mg NG Q4H PRN PRN PRN Reason: Pain Score 6-10/10 Promethazine HCl (Phenergan) 25 mg IV Q4H PRN PRN PRN Reason: NAUSEA/VOMITING Last Admin: 06/09/20 03:15 Dose: 25 mg Documented by: Sodium Chloride () 10 - 40 ml IV UD PRN PRN Reason: SALINE FLUSH Last Admin: 06/08/20 14:20 Dose: 10 ml Documented by: Medical Necessity - Tobacco Use Smoking Status: Never smoker Assessment/Plan All Active Problems Decubitus ulcer of coccygeal region, stage 2 (Acute) Pressure injury, stage 4, with gangrene (Acute) History of breast cancer (Acute) Leukocytosis (Acute) Sepsis (Acute) 1. Right ischial pressure sore, Stage IV. 2. Acute and chronic osteomyelitis. 3. Multiple sclerosis. 4. s/p excision right ischial pressure sore, Stage IV, with partial ostectomy for osteomyelitis and reconstruction with right hamstrings myocutaneous advancement flap and placement AmnioFill placental connective tissue powder (500 mg). 5. Postop fever, resolved. 6. Consolidation right lung, probable aspiration. 7. Postop ileus. Incision is dry and intact. Flap is soft and healing satisfactory. No clinical evidence of hematoma. Continue dry dressings daily with antibiotic ointment. Operative culture shows Corynebacterium striatum and Anaerobic cocci in the soft tissue and Anaerobic cocci in the bone. Continue Unasyn. Pathology is positive for acute and chronic osteomyelitis. She will need 6 weeks of IV antibiotics. She had been on Unasyn but because of possible aspiration, it was changed to Zosyn. Patient had diverting colostomy on . Patient has stool in the colostomy bag. NG was placed secondary to vomiting. KUB shows postop ileus. Patient had a postop fever of 101.3 which has resolved. Probable atelectasis. Encourage incentive spirometry. CXR was done which showed no acute cardiopulmonary disease. Since then she had some vomiting and there is concern about possible aspiration. CXR today showed new consolidation on the right. Her antibiotics were changed from Unasyn to Zosyn to give better pulmonary coverage. Urinalysis was negative. She recently had her giordano changed before her surgery. Urine culture shows preliminary yeast. She's on chronic Diflucan therapy weekly. Will make it daily for now. Her WBC has increased to 24.6. Probably related to aspiration. Will repeat in the morning. If it continues to increase, will check CT Abdomen and Pelvis. Prealbumin was 16.2. Encourage nutritional supplementation with protein to help the healing process. She will need to be on 6 weeks of bedrest on a specialty bed (low air loss bed). ECF evaluation in process. Awaiting a precert. After discharge, [facility] for suture removal and removal of the drains. She will need to travel on a stretcher in an ambulance as she will be on bedrest.
[2020-06-09] MEDS: Mupirocin Ointment 22gm Tube 1 APPLIC TOPICAL (20:16)
[2020-06-09] MEDS: ACETIC ACID 1,000 ML IRRIG.SOLN 60 ML IR (22:26)
[2020-06-10] VITALS (8 sets, daily range): BP systolic 101–109; BP diastolic 46–65; PULSE 96–103; RESP 16–18; TEMP 36.8–37.3; O2SAT 92–94
[2020-06-10] MEDS: 0.9% Normal Saline 1,000 ML 150 ML IV ×3 (04:41→23:25)
[2020-06-10 05:33] LABS: Absolute Lymphocyte Count 1.86 X10^3/uL (0.83-4.51); Absolute Neutrophil Count 16.5 X10^3/uL (2.0-7.7); Basophil# 0.04 X10^3/uL; Basophil% 0.2 % (0-1); Eosinophil# 0.19 X10^3/uL; Hematocrit 29.5 % (37-47); Hemoglobin 9.1 g/dL (12.0-15.0); Lymphocyte # 1.86 X10^3/ul (4.0); Lymphocyte % 9.6 % (19-41); Mean Corp Hgb Conc 30.8 g/dL (32-36); Mean Corpuscular Hgb 26.4 pg (27.0-32.0); Mean Corpuscular Volume 85.5 fL (81-99); Monocyte% 3.6 % (0-10); NRBC Flagged by Analyzer 0 % (0-5); Neutrophil # 16.53 X10^3/uL (2.7-7.7); Neutrophil % 85.2 % (47-70); Platelet Count 470 K/mm3 (150-450); RBC Distribution Width CV 14.9 % (11.6-14.6); RBC Distribution Width SD 45.6 fl (35.1-43.9); Red Blood Count 3.45 M/mm3 (4.2-5.4); White Blood Count 19.4 K/mm3 (4.4-11.0)
[2020-06-10 05:52] LABS: ALB/GLOB Ratio 0.3 RATIO (0.9-2.4); AST(SGOT) 7 U/L (15-37); Alanine Aminotransfer ALT/SGPT 10 U/L (13-56); Albumin, Serum 1.4 g/dL (3.2-5.0); Alkaline Phosphatase 57 U/L (45-117); Anion Gap 7 (5-15); BUN 7 mg/dL (7-18); BUN/Creat Ratio 33.3 RATIO (10-20); Calcium,Total 7.3 mg/dL (8.5-10.1); Chloride 107 mmol/L (98-107); Creatinine, Serum 0.21 mg/dL (0.55-1.02); EST Glomerular Filtration Rate 358 mL/min (>60); Est Glom Filt Rate - Afr Amer 433 mL/min (>60); Globulin 4.3 g/dL (2.2-4.2); Glucose 87 mg/dL (74-106); Potassium 2.7 mmol/L (3.5-5.1); Protein, Total 5.7 g/dL (6.4-8.2); Sodium Level 139 mmol/L (136-145)
[2020-06-10 05:56] LABS: Erythrocyte Sedimentation Rate 83 mm/hr (0-30)
--- NOTE | 2020-06-10 06:00 | NURSING ---
Called Dr. Dougherty via oil refinery operator, unable to reach at this time. Mailbox was full and was unable to leave message
--- NOTE | 2020-06-10 06:28 | NURSING ---
Called Dr. Dougherty via dividing machine operator, unable to reach at this time. Mailbox is full and was unable to leave message
--- NOTE | 2020-06-10 06:30 | NURSING ---
Paged Dr. Dougherty via french folding machine operator
[2020-06-10] MEDS: Potassium Chloride 10mEq/100mL 10 MEQ/100 ML IV.SOLN. 80 MEQ IV BOLUS ×4 (08:13→15:08)
--- NOTE | 2020-06-10 08:15 | PN.SURG_ITS ---
Subjective: Patient feels much better this morning. - Physical Exam Vitals/I&O's: Vital Signs Temp Pulse Resp BP Pulse Ox 98.3 F 99 16 109/65 94 06/10/20 02:03 06/10/20 02:25 06/10/20 02:25 06/10/20 02:03 06/10/20 02:25 Oxygen Flow Rate (L/min) 2 Oxygen Delivery Method Room Air Weight: 176 lb 9.444 oz Body Mass Index (BMI) 27.6 Intake and Output for Last 24 Hours 06/08/20 06/09/20 06/10/20 23:59 23:59 23:59 Intake Total 4111.5 / 4161.5 3610.0 / 3710.0 1267.5 / 1267.5 Output Total 3235 / 4107 2972 / 3872 2160 / 2160 Balance 876.5 / 54.5 638.0 / -162.0 -892.5 / -892.5 General: Alert, Oriented x3 Lungs: Normal air movement Abdomen: Soft, Non Tender, Non-Distended Microbiology Past 72 Hours 06/07/20 20:30 Suprapubic Tap Urine Culture - Preliminary Yeast Like Organism Laboratory Results 06/10/20 05:12: WBC 19.4 H, RBC 3.45 L, Hgb 9.1 L, Hct 29.5 L, MCV 85.5, MCH 26.4 L, MCHC 30.8 L, RDW Std Deviation 45.6 H, RDW Coeff of Homer 14.9 H, Plt Count 470 H, MPV 9.0, Immature Gran % (Auto) 0.400, Neut % (Auto) 85.2 H, Lymph % (Auto) 9.6 L, [place] % (Auto) 3.6, Eos % (Auto) 1.0, Baso % (Auto) 0.2, Absolute Neuts (auto) 16.5 H, Absolute Lymphs (auto) 1.86, Nucleated RBC % 0, ESR 83 H 06/10/20 05:12: Sodium 139, Potassium 2.7 L*, Chloride 107, Carbon Dioxide 25.0, Anion Gap 7, BUN 7, Creatinine 0.21 L, Estim Creat Clear Calc 259.72, Est GFR (MDRD) Af Amer 433, Est GFR (MDRD) Non-Af 358, BUN/Creatinine Ratio 33.3 H, Glucose 87, Calcium 7.3 L, Total Bilirubin 0.40, AST 7 L, ALT 10 L, Alkaline Phosphatase 57, C-React Prot Ext Range 120.00 H, Total Protein 5.7 L, Albumin 1.4 L, Globulin 4.3 H, Albumin/Globulin Ratio 0.3 L Current Medications Acetaminophen (Tylenol Liquid) 650 mg PO Q6H PRN PRN PRN Reason: fever/Noncardiac pain() Acetic Acid (Acetic Acid) 60 ml IR QHS [facility] Last Admin: 06/09/20 22:26 Dose: 60 ml Documented by: Baclofen (Lioresal) 20 mg PO Q8H PRN PRN PRN Reason: MUSCLE SPASMS Cholestyramine Resin (Questran 4gm Packet) 1.3 gm PO DAILY [facility] Diazepam (Valium) 5 mg PO 4X/DAY PRN PRN PRN Reason: SPASMS Docusate Sodium (Colace Syrup) 100 mg PO BID [facility] Enoxaparin Sodium (Lovenox) 40 mg SC DAILY [facility] Last Admin: 06/09/20 09:21 Dose: 40 mg Documented by: Sodium Chloride () 250 mls @ 15 mls/hr IV .[id number] PRN PRN Reason: Saline Flush Last Infusion: 06/04/20 15:30 Dose: Infused Documented by: Sodium Chloride () 1,000 mls @ 150 mls/hr IV .Q6H40M [facility] Last Admin: 06/10/20 04:41 Dose: 150 mls/hr Documented by: Piperacillin Sod/Tazobactam (Sod 3.375 gm/ Sodium Chloride) 50 mls @ 12.5 mls/hr IV Q8 [facility] Last Admin: 06/10/20 05:22 Dose: 12.5 mls/hr Documented by: Fluconazole (Diflucan) 200 mg in 100 mls @ 100 mls/hr IV Q24 [facility] Last Infusion: 06/09/20 21:07 Dose: Infused Documented by: Potassium Chloride () 10 meq in 100 mls @ 100 mls/hr IV BOLUS Q1H [facility] Stop: 06/10/20 11:59 Lactobacillus Acidophilus (Acidophilus) 1 tablet PO 4X/DAY [facility] Letrozole (Femara) 2.5 mg PO DAILY [facility] Last Admin: 06/09/20 09:21 Dose: 2.5 mg Documented by: Magnesium Hydroxide (Milk Of Magnesia) 30 ml PO BID [facility] Metoprolol Tartrate (Lopressor (Beta David)) 25 mg PO BID [facility] Morphine Sulfate () 2 - 4 mg IV Q2H PRN PRN PRN Reason: Pain Score 4-10/10 Last Admin: 06/07/20 11:34 Dose: 2 mg Documented by: Morphine Sulfate () 2 - 4 mg IV Q2H PRN PRN PRN Reason: Pain Score 4-10/10 Mupirocin (Bactroban) 1 applic TOPICAL DAILY [facility]; Protocol Last Admin: 06/09/20 20:16 Dose: 1 applicatio Documented by: Nitrofurantoin Macrocrystals (Macrobid) 100 mg PO DAILYCM [facility] Nutritional Formula (Domingo - [place] Flavor) 1 packet PO BIDCM [facility] Nutritional Formula (Lactose Free) (Ensure Clear) 120 ml PO TIDCM [facility] Last Admin: 06/09/20 16:53 Dose: Not Given Documented by: Nystatin (Mycostatin Powder) 1 applic TOPICAL BID [facility]; Protocol Last Admin: 06/09/20 20:22 Dose: 1 applicatio Documented by: Oxybutynin Chloride (Ditropan) 5 mg PO BID [facility] Oxycodone HCl (Oxyir) 10 mg PO Q4H PRN PRN PRN Reason: Pain Score 6-10/10 Promethazine HCl (Phenergan) 25 mg IV Q4H PRN PRN PRN Reason: NAUSEA/VOMITING Last Admin: 06/09/20 03:15 Dose: 25 mg Documented by: Sodium Chloride () 10 - 40 ml IV UD PRN PRN Reason: SALINE FLUSH Last Admin: 06/08/20 14:20 Dose: 10 ml Documented by: Medical Necessity - Tobacco Use Smoking Status: Never smoker Assessment/Plan All Active Problems Decubitus ulcer of coccygeal region, stage 2 (Acute) Pressure injury, stage 4, with gangrene (Acute) History of breast cancer (Acute) Leukocytosis (Acute) Sepsis (Acute) 65-year-old female status post sigmoid colectomy with colostomy 1. Patient is doing better this morning. Her white count is decreased. She is less distended and she is having flatus and stool from her colostomy. Her NG output is decreased and it has cleared up and it is no longer bilious. I will remove her NG and start clear liquids. I advised her to take it slowly. If she tolerates clears today I will advance her diet tomorrow. Stoma is pink and producing stool. Gabriele Coyne MD Pager: [facility] [address] [place] [address], [address] [place] [phone] Office:
[2020-06-10] MEDS: Nystatin Powder 15gm Bottle 1 APPLIC TOPICAL ×2 (08:40→22:58)
--- NOTE | 2020-06-10 10:19 | CASEMGMT ---
Social Work Note FAITH reviewed notes. Pt is to get NG tube removed today and advanced diet tomorrow. No discharge today. FAITH faxed updated clinicals to Yoselin at [facility] and wrote on fax coversheet that pt is not medically cleared for discharge today. Plan: [facility] pending pre-cert and being medically cleared Edelmira Barraza PRESCRIPTION CLERK [employer]ENSES, HELP DESK INTERN
[2020-06-10] MEDS: Cholestyramine/Sucrose 4 GM/PACKET 1.3 GM PO (10:34)
[2020-06-10] MEDS: Metoprolol Tartrate 25 MG Tablet PO ×2 (10:35→23:00)
[2020-06-10] MEDS: Oxybutynin 5 MG Tablet PO ×2 (10:35→22:57)
[2020-06-10] MEDS: Nitrofurantoin Macrocrystals 100 MG Capsule PO (10:37)
[2020-06-10] MEDS: Enoxaparin 40 MG/0.4 ML Syringe SC (10:37)
[2020-06-10] MEDS: Ensure Clear 120 ML Liquid PO ×2 (10:47→13:47)
[2020-06-10] MEDS: Baclofen 10 MG Tablet 20 MG PO ×2 (10:50→18:21)
[2020-06-10] MEDS: Mupirocin Ointment 22gm Tube 1 APPLIC TOPICAL (15:08)
--- NOTE | 2020-06-10 15:22 | PN.SURG_ITS ---
Subjective: Postop #14 Patient is resting comfortably. - Physical Exam Vitals/I&O's: Vital Signs Temp Pulse Resp BP Pulse Ox 98.2 F 99 16 101/46 L 92 06/10/20 08:00 06/10/20 10:35 06/10/20 08:00 06/10/20 08:00 06/10/20 08:00 Oxygen Flow Rate (L/min) 2 Oxygen Delivery Method Room Air Weight: 176 lb 9.444 oz Body Mass Index (BMI) 27.6 Intake and Output for Last 24 Hours 06/08/20 06/09/20 06/10/20 23:59 23:59 23:59 Intake Total 4111.5 / 4161.5 3610.0 / 3710.0 3031.00 / 3031.00 Output Total 3235 / 4107 2972 / 3872 3460 / 3460 Balance 876.5 / 54.5 638.0 / -162.0 -429.00 / -429.00 Drainage 14 ml today. General: Alert, Oriented x3 HEENT: PERRLA, EOMI Oral: Moist Mucosa Neck: Supple Skin: Incision - right ischial incision dry and intact. Flap is soft and healing satisfactory. Neurological: Cranial nerves II-XII grossly intact Psych/Mental Status: Normal Affect, Appropriate Microbiology Past 72 Hours 06/07/20 20:30 Suprapubic Tap Urine Culture - Preliminary Yeast Like Organism Pathology - acute and chronic osteomyelitis. Laboratory Results 06/10/20 05:12: WBC 19.4 H, RBC 3.45 L, Hgb 9.1 L, Hct 29.5 L, MCV 85.5, MCH 26.4 L, MCHC 30.8 L, RDW Std Deviation 45.6 H, RDW Coeff of Homer 14.9 H, Plt Count 470 H, MPV 9.0, Immature Gran % (Auto) 0.400, Neut % (Auto) 85.2 H, Lymph % (Auto) 9.6 L, [place] % (Auto) 3.6, Eos % (Auto) 1.0, Baso % (Auto) 0.2, Absolute Neuts (auto) 16.5 H, Absolute Lymphs (auto) 1.86, Nucleated RBC % 0, ESR 83 H 06/10/20 05:12: Sodium 139, Potassium 2.7 L*, Chloride 107, Carbon Dioxide 25.0, Anion Gap 7, BUN 7, Creatinine 0.21 L, Estim Creat Clear Calc 259.72, Est GFR (MDRD) Af Amer 433, Est GFR (MDRD) Non-Af 358, BUN/Creatinine Ratio 33.3 H, Glucose 87, Calcium 7.3 L, Total Bilirubin 0.40, AST 7 L, ALT 10 L, Alkaline Phosphatase 57, C-React Prot Ext Range 120.00 H, Total Protein 5.7 L, Albumin 1.4 L, Globulin 4.3 H, Albumin/Globulin Ratio 0.3 L Current Medications Acetaminophen (Tylenol Liquid) 650 mg PO Q6H PRN PRN PRN Reason: fever/Noncardiac pain() Acetic Acid (Acetic Acid) 60 ml IR QHS [facility] Last Admin: 06/09/20 22:26 Dose: 60 ml Documented by: Baclofen (Lioresal) 20 mg PO Q8H PRN PRN PRN Reason: MUSCLE SPASMS Last Admin: 06/10/20 10:50 Dose: 20 mg Documented by: Cholestyramine Resin (Questran 4gm Packet) 1.3 gm PO DAILY [facility] Last Admin: 06/10/20 10:34 Dose: 1.3 gm Documented by: Diazepam (Valium) 5 mg PO 4X/DAY PRN PRN PRN Reason: SPASMS Docusate Sodium (Colace Syrup) 100 mg PO BID [facility] Last Admin: 06/10/20 13:49 Dose: Not Given Documented by: Enoxaparin Sodium (Lovenox) 40 mg SC DAILY [facility] Last Admin: 06/10/20 10:37 Dose: 40 mg Documented by: Sodium Chloride () 250 mls @ 15 mls/hr IV .[id number] PRN PRN Reason: Saline Flush Last Infusion: 06/10/20 13:15 Dose: 15 mls/hr Documented by: Sodium Chloride () 1,000 mls @ 150 mls/hr IV .Q6H40M [facility] Last Infusion: 06/10/20 14:41 Dose: 1,441 mls/hr Documented by: Piperacillin Sod/Tazobactam (Sod 3.375 gm/ Sodium Chloride) 50 mls @ 12.5 mls/hr IV Q8 [facility] Last Admin: 06/10/20 15:08 Dose: 12.5 mls/hr Documented by: Fluconazole (Diflucan) 200 mg in 100 mls @ 100 mls/hr IV Q24 [facility] Last Admin: 06/10/20 13:41 Dose: 100 mls/hr Documented by: Lactobacillus Acidophilus (Acidophilus) 1 tablet PO 4X/DAY [facility] Last Admin: 06/10/20 15:11 Dose: 1 tablet Documented by: Letrozole (Femara) 2.5 mg PO DAILY [facility] Last Admin: 06/10/20 10:37 Dose: 2.5 mg Documented by: Metoprolol Tartrate (Lopressor (Beta David)) 25 mg PO BID [facility] Last Admin: 06/10/20 10:35 Dose: 25 mg Documented by: Morphine Sulfate () 2 - 4 mg IV Q2H PRN PRN PRN Reason: Pain Score 4-10/10 Last Admin: 06/07/20 11:34 Dose: 2 mg Documented by: Morphine Sulfate () 2 - 4 mg IV Q2H PRN PRN PRN Reason: Pain Score 4-10/10 Mupirocin (Bactroban) 1 applic TOPICAL DAILY [facility]; Protocol Last Admin: 06/10/20 15:08 Dose: 1 applicatio Documented by: Nitrofurantoin Macrocrystals ([facility]robid) [facility] Last Admin: 06/10/20 10:37 Dose: 100 mg Documented by: Nutritional Formula (Domingo - [place] Flavor) 1 packet PO BIDCM [facility] Last Admin: 06/10/20 10:37 Dose: 1 packet Documented by: Nutritional Formula (Lactose Free) (Ensure Clear) 120 ml PO TIDCM [facility] Last Admin: 06/10/20 13:47 Dose: 120 ml Documented by: Nystatin (Mycostatin Powder) 1 applic TOPICAL BID [facility]; Protocol Last Admin: 06/10/20 08:40 Dose: 1 applicatio Documented by: Oxybutynin Chloride (Ditropan) 5 mg PO BID [facility] Last Admin: 06/10/20 10:35 Dose: 5 mg Documented by: Oxycodone HCl (Oxyir) 10 mg PO Q4H PRN PRN PRN Reason: Pain Score 6-10/10 Promethazine HCl (Phenergan) 25 mg IV Q4H PRN PRN PRN Reason: NAUSEA/VOMITING Last Admin: 06/09/20 03:15 Dose: 25 mg Documented by: Sodium Chloride () 10 - 40 ml IV UD PRN PRN Reason: SALINE FLUSH Last Admin: 06/08/20 14:20 Dose: 10 ml Documented by: Medical Necessity - Tobacco Use Smoking Status: Never smoker Assessment/Plan All Active Problems Decubitus ulcer of coccygeal region, stage 2 (Acute) Pressure injury, stage 4, with gangrene (Acute) History of breast cancer (Acute) Leukocytosis (Acute) Sepsis (Acute) 1. Right ischial pressure sore, Stage IV. 2. Acute and chronic osteomyelitis. 3. Multiple sclerosis. 4. s/p excision right ischial pressure sore, Stage IV, with partial ostectomy for osteomyelitis and reconstruction with right hamstrings myocutaneous advancement flap and placement AmnioFill placental connective tissue powder (500 mg). 5. Postop fever, resolved. 6. Consolidation right lung, probable aspiration. 7. Postop ileus, resolving. Incision is dry and intact. Flap is soft and healing satisfactory. No clinical evidence of hematoma. Continue dry dressings daily with antibiotic ointment. Operative culture shows Corynebacterium striatum and Anaerobic cocci in the soft tissue and Anaerobic cocci in the bone. Pathology is positive for acute and chronic osteomyelitis. She will need 6 weeks of IV antibiotics. She had been on Unasyn but because of possible aspiration, it was changed to Zosyn. Patient had diverting colostomy on . Patient has stool in the colostomy bag. NG was placed secondary to vomiting. KUB shows postop ileus. It is resolving. NG has been removed. Patient had a postop fever of 101.3 which has resolved. Probable atelectasis. Encourage incentive spirometry. CXR was done which showed no acute cardiopulmonary disease. Since then she had some vomiting and there is concern about possible aspiration. Repeat CXR showed new consolidation on the right. Her antibiotics were changed from Unasyn to Zosyn to give better pulmonary coverage. Urinalysis was negative. She recently had her giordano changed before her surgery. Urine culture shows preliminary yeast. She's on chronic Diflucan therapy weekly. Will make it daily for now. Her WBC has improved from 24.6 to 19.4. Probably related to aspiration. Will repeat in the morning. If it worsenes, will check CT Abdomen and Pelvis. Prealbumin was 16.2. Encourage nutritional supplementation with protein to help the healing process. She will need to be on 6 weeks of bedrest on a specialty bed (low air loss bed). ECF evaluation in process. Awaiting a precert. After discharge, [facility] for suture removal and removal of the drains. She will need to travel on a stretcher in an ambulance as she will be on bedrest.
--- NOTE | 2020-06-10 15:23 | NURSING ---
In to change ostomy appliance with patient and . removed the ostomy appliance. there was a large amount of liquid brown stool in the pouch. demonstrated how to empty the pouch with prior to removing the appliance. peristomal skin is intact. stoma measures approx 2 and is slightly above the skin level. stoma is beefy red. cleansed peristomal skin with warm water. pat dry. applied a 2 piece flat Marc appliance with a small amount of stoma paste. pt tolerated well. denies further questions at this time.
[2020-06-10 19:49] LABS: Anion Gap 6 (5-15); BUN 8 mg/dL (7-18); BUN/Creat Ratio 19.6 RATIO (10-20); Calcium,Total 7.7 mg/dL (8.5-10.1); Chloride 108 mmol/L (98-107); Creatinine, Serum 0.41 mg/dL (0.55-1.02); EST Glomerular Filtration Rate 166 mL/min (>60); Est Glom Filt Rate - Afr Amer 201 mL/min (>60); Estimated Creatinine Clearance 133.03 ml/min; Glucose 130 mg/dL (74-106); Sodium Level 139 mmol/L (136-145)
[2020-06-10] MEDS: Docusate Sodium 100 MG/10 ML UDC PO (22:58)
[2020-06-10] MEDS: ACETIC ACID 1,000 ML IRRIG.SOLN 60 ML IR (22:58)
[2020-06-11 04:32] VITALS: BP 114/65; PULSE 92; RESP 18; TEMP 37.2; O2SAT 96
[2020-06-11] MEDS: Baclofen 10 MG Tablet 20 MG PO ×2 (04:36→17:49)
[2020-06-11 06:04] LABS: Hematocrit 29.4 % (37-47); Hemoglobin 9.4 g/dL (12.0-15.0); Mean Corpuscular Hgb 26.8 pg (27.0-32.0); Mean Corpuscular Volume 83.8 fL (81-99); Mean Platelet Vol. 9.4 fl (6.2-12.0); Platelet Count 494 K/mm3 (150-450); RBC Distribution Width CV 14.7 % (11.6-14.6); RBC Distribution Width SD 44.7 fl (35.1-43.9); Red Blood Count 3.51 M/mm3 (4.2-5.4)
[2020-06-11] MEDS: 0.9% Saline Lock 10 ML Syringe IV ×2 (06:12→22:12)
[2020-06-11] MEDS: 0.9% Normal Saline 1,000 ML 150 ML IV (06:13)
[2020-06-11] MEDS: Potassium Chloride 10mEq/100mL 10 MEQ/100 ML IV.SOLN. 100 MEQ IV BOLUS ×4 (06:16→23:46)
[2020-06-11 06:45] LABS: Anion Gap 7 (5-15); BUN 5 mg/dL (7-18); BUN/Creat Ratio 19.5 RATIO (10-20); Calcium,Total 7.7 mg/dL (8.5-10.1); Chloride 106 mmol/L (98-107); Creatinine, Serum 0.26 mg/dL (0.55-1.02); EST Glomerular Filtration Rate 283 mL/min (>60); Est Glom Filt Rate - Afr Amer 343 mL/min (>60); Estimated Creatinine Clearance 209.78 ml/min; Glucose 95 mg/dL (74-106); Potassium 2.5 mmol/L (3.5-5.1); Sodium Level 140 mmol/L (136-145)
[2020-06-11] MEDS: Potassium Chloride 10mEq/100mL 10 MEQ/100 ML IV.SOLN. 70 MEQ IV BOLUS ×2 (09:02→10:34)
[2020-06-11] MEDS: Nystatin Powder 15gm Bottle 1 APPLIC TOPICAL ×2 (09:04→22:15)
--- NOTE | 2020-06-11 09:34 | PCM.PN.SRG ---
Subjective: Patient is doing well and tolerating clear liquids with no nausea or vomiting. No abdominal pain this morning. - Physical Exam Vitals/I&O's: Vital Signs Temp Pulse Resp BP Pulse Ox 99.0 F 92 18 114/65 96 06/11/20 04:32 06/11/20 04:32 06/11/20 04:32 06/11/20 04:32 06/11/20 04:32 Oxygen Flow Rate (L/min) 2 Oxygen Delivery Method Room Air Weight: 176 lb 9.444 oz Body Mass Index (BMI) 27.6 Intake and Output for Last 24 Hours 06/09/20 06/10/20 06/11/20 23:59 23:59 23:59 Intake Total 3610.0 / 3710.0 4820.75 / 5020.75 2313.92 / 2313.92 Output Total 2972 / 3872 6299 / 7549 1950 / 1950 Balance 638.0 / -162.0 -1478.25 / -2528.25 363.92 / 363.92 General: Alert, Oriented x3 Neck: No JVD, Negative Carotid Bruits Lungs: Normal air movement Cardiovascular: Regular rate, Regular Rhythm Abdomen: Soft, Non Tender, Non-Distended Microbiology Past 72 Hours 06/07/20 20:30 Suprapubic Tap Urine Culture - Preliminary Yeast Like Organism Laboratory Results 06/10/20 18:18: Sodium 139, Potassium 3.0 L, Chloride 108 H, Carbon Dioxide 25.0, Anion Gap 6, BUN 8, Creatinine 0.41 L, Estim Creat Clear Calc 133.03, Est GFR (MDRD) Af Amer 201, Est GFR (MDRD) Non-Af 166, BUN/Creatinine Ratio 19.6, Glucose 130 H, Calcium 7.7 L 06/11/20 05:30: WBC 14.0 H, RBC 3.51 L, Hgb 9.4 L, Hct 29.4 L, MCV 83.8, MCH 26.8 L, MCHC 32.0, RDW Std Deviation 44.7 H, RDW Coeff of Homer 14.7 H, Plt Count 494 H, MPV 9.4 06/11/20 05:30: Sodium 140, Potassium 2.5 L*, Chloride 106, Carbon Dioxide 27.0, Anion Gap 7, BUN 5 L, Creatinine 0.26 L, Estim Creat Clear Calc 209.78, Est GFR (MDRD) Af Amer 343, Est GFR (MDRD) Non-Af 283, BUN/Creatinine Ratio 19.5, Glucose 95, Calcium 7.7 L Current Medications Acetaminophen (Tylenol Liquid) 650 mg PO Q6H PRN PRN PRN Reason: fever/Noncardiac pain(4-09/07) Acetic Acid (Acetic Acid) 60 ml IR QHS [facility] Last Admin: 06/10/20 22:58 Dose: 60 ml Documented by: Baclofen (Lioresal) 20 mg PO Q8H PRN PRN PRN Reason: MUSCLE SPASMS Last Admin: 06/11/20 04:36 Dose: 20 mg Documented by: Cholestyramine Resin (Questran 4gm Packet) 1.3 gm PO DAILY [facility] Last Admin: 06/10/20 10:34 Dose: 1.3 gm Documented by: Diazepam (Valium) 5 mg PO 4X/DAY PRN PRN PRN Reason: SPASMS Docusate Sodium (Colace) 100 mg PO BID [facility] Enoxaparin Sodium (Lovenox) 40 mg SC DAILY [facility] Last Admin: 06/10/20 10:37 Dose: 40 mg Documented by: Sodium Chloride () 250 mls @ 15 mls/hr IV .[id number] PRN PRN Reason: Saline Flush Last Infusion: 06/11/20 06:37 Dose: 0 mls/hr Documented by: Sodium Chloride () 1,000 mls @ 150 mls/hr IV .[id number] [facility] Last Infusion: 06/11/20 07:31 Dose: 80 mls/hr Documented by: Piperacillin Sod/Tazobactam (Sod 3.375 gm/ Sodium Chloride) 50 mls @ 12.5 mls/hr IV Q8 [facility] Last Admin: 06/11/20 06:12 Dose: 12.5 mls/hr Documented by: Fluconazole (Diflucan) 200 mg in 100 mls @ 100 mls/hr IV Q24 [facility] Last Infusion: 06/10/20 14:41 Dose: Infused Documented by: Potassium Chloride () 10 meq in 100 mls @ 100 mls/hr IV BOLUS Q1H [facility] Stop: 06/11/20 09:59 Last Admin: 06/11/20 09:02 Dose: 70 mls/hr Documented by: Lactobacillus Acidophilus (Acidophilus) 1 tablet PO 4X/DAY [facility] Last Admin: 06/10/20 22:57 Dose: 1 tablet Documented by: Letrozole (Femara) 2.5 mg PO DAILY [facility] Last Admin: 06/10/20 10:37 Dose: 2.5 mg Documented by: Metoprolol Tartrate (Lopressor (Beta David)) 25 mg PO BID [facility] Last Admin: 06/10/20 23:00 Dose: 25 mg Documented by: Morphine Sulfate () 2 - 4 mg IV Q2H PRN PRN PRN Reason: Pain Score 4-10/10 Last Admin: 06/07/20 11:34 Dose: 2 mg Documented by: Morphine Sulfate () 2 - 4 mg IV Q2H PRN PRN PRN Reason: Pain Score 4-10/10 Mupirocin (Bactroban) 1 applic TOPICAL DAILY [facility]; Protocol Last Admin: 06/10/20 15:08 Dose: 1 applicatio Documented by: Nitrofurantoin Macrocrystals ([facility]robid) [facility] Last Admin: 06/10/20 10:37 Dose: 100 mg Documented by: Nutritional Formula (Domingo - [place] Flavor) 1 packet PO BIDCM [facility] Last Admin: 06/10/20 17:17 Dose: 1 packet Documented by: Nutritional Formula (Lactose Free) (Ensure Clear) 120 ml PO TIDCM [facility] Last Admin: 06/10/20 17:16 Dose: Not Given Documented by: Nystatin (Mycostatin Powder) 1 applic TOPICAL BID [facility]; Protocol Last Admin: 06/11/20 09:04 Dose: 1 applicatio Documented by: Oxybutynin Chloride (Ditropan) 5 mg PO BID [facility] Last Admin: 06/10/20 22:57 Dose: 5 mg Documented by: Oxycodone HCl (Oxyir) 10 mg PO Q4H PRN PRN PRN Reason: Pain Score 6-10/10 Promethazine HCl (Phenergan) 25 mg IV Q4H PRN PRN PRN Reason: NAUSEA/VOMITING Last Admin: 06/09/20 03:15 Dose: 25 mg Documented by: Sodium Chloride () 10 - 40 ml IV UD PRN PRN Reason: SALINE FLUSH Last Admin: 06/11/20 06:12 Dose: 10 ml Documented by: Medical Necessity - Tobacco Use Smoking Status: Never smoker Assessment/Plan All Active Problems Decubitus ulcer of coccygeal region, stage 2 (Acute) Pressure injury, stage 4, with gangrene (Acute) History of breast cancer (Acute) Leukocytosis (Acute) Sepsis (Acute) 65-year-old female status post sigmoid colectomy with colostomy 1. Patient is doing well this morning. She is having stool and gas from her colostomy. She has no abdominal pain with no distention. She is not having any nausea or vomiting after clear liquids. I will advance her to transitional diet. If she tolerates that she may be ready for discharge by tomorrow. White blood count count is improving. Continue antibiotics on discharge for aspiration pneumonia. Gabriele Coyne MD Pager: [facility] [address] [place] [address], [address] [place] [address] Office:
--- NOTE | 2020-06-11 09:49 | CASEMGMT ---
Addendum entered by Edelmira Barraza 06/11/20 11:40: FAITH received call from Oksana at [employer] stating they need updated clinicals. FAITH faxed updated clinicals to [facility]. Original Note: Social Work Note FAITH placed a call to [employer] asked to speak with Yoselin. FAITH updated that Yoselin is with [facility] so this worker will likely need to speak with Bita. FAITH asked to speak to Bita, Bita not available at this time. Per staff, pre-cert is still pending and asked if pt will be medically cleared for discharge today. FAITH informed staff that pt is advancing diet today and if pt tolerates diet, then possible discharge later this afternoon if pre-cert is obtained. Staff states they will update Bita. Plan: [facility] pending pre-cert and medically cleared Edelmira Barraza MANAGEMENT TRAINEE MARKETING, EMERGENCY REGISTRAR
[2020-06-11 10:10] VITALS: BP 109/57; PULSE 108; RESP 16; TEMP 36.7; O2SAT 97
[2020-06-11] MEDS: Enoxaparin 40 MG/0.4 ML Syringe SC (10:36)
--- NOTE | 2020-06-11 11:42 | NURSING ---
Was planning on changing the muscle flap dressing to the right ischial/posterior thigh. pt states she feels she had eaten too much breakfast and now has an upset stomach. pt asking if this nurse can come back later today to change the dressing. will plan to see pt this afternoon. no further needs voiced at this time.
--- NOTE | 2020-06-11 12:34 | PN.SURG_ITS ---
Subjective: Postop #15 Patient resting comfortably. - Physical Exam Vitals/I&O's: Vital Signs Temp Pulse Resp BP Pulse Ox 98.0 F 108 H 16 109/57 L 97 06/11/20 10:10 06/11/20 10:10 06/11/20 10:10 06/11/20 10:10 06/11/20 10:10 Oxygen Flow Rate (L/min) 2 Oxygen Delivery Method Room Air Weight: 176 lb 9.444 oz Body Mass Index (BMI) 27.6 Intake and Output for Last 24 Hours 06/09/20 06/10/20 06/11/20 23:59 23:59 23:59 Intake Total 3610.0 / 3710.0 4820.75 / 5020.75 2813.92 / 2813.92 Output Total 2972 / 3872 6299 / 7549 4370 / 4370 Balance 638.0 / -162.0 -1478.25 / -2528.25 -1556.08 / -1556.08 Drainage 14 ml yesterday. General: Alert, Oriented x3 HEENT: PERRLA, EOMI Oral: Moist Mucosa Neck: Supple Skin: Incision - right ischia incision dry and intact. Flap is soft and healing satisfactory. Neurological: Cranial nerves II-XII grossly intact Psych/Mental Status: Normal Affect, Appropriate Microbiology Past 72 Hours 06/07/20 20:30 Suprapubic Tap Urine Culture - Preliminary Yeast Like Organism Pathology - acute and chronic osteomyelitis. Laboratory Results 06/10/20 18:18: Sodium 139, Potassium 3.0 L, Chloride 108 H, Carbon Dioxide 25.0, Anion Gap 6, BUN 8, Creatinine 0.41 L, Estim Creat Clear Calc 133.03, Est GFR (MDRD) Af Amer 201, Est GFR (MDRD) Non-Af 166, BUN/Creatinine Ratio 19.6, Glucose 130 H, Calcium 7.7 L 06/11/20 05:30: WBC 14.0 H, RBC 3.51 L, Hgb 9.4 L, Hct 29.4 L, MCV 83.8, MCH 26.8 L, MCHC 32.0, RDW Std Deviation 44.7 H, RDW Coeff of Homer 14.7 H, Plt Count 494 H, MPV 9.4 06/11/20 05:30: Sodium 140, Potassium 2.5 L*, Chloride 106, Carbon Dioxide 27.0, Anion Gap 7, BUN 5 L, Creatinine 0.26 L, Estim Creat Clear Calc 209.78, Est GFR (MDRD) Af Amer 343, Est GFR (MDRD) Non-Af 283, BUN/Creatinine Ratio 19.5, Glucose 95, Calcium 7.7 L Current Medications Acetaminophen (Tylenol Liquid) 650 mg PO Q6H PRN PRN PRN Reason: fever/Noncardiac pain() Acetic Acid (Acetic Acid) 60 ml IR QHS [facility] Last Admin: 06/10/20 22:58 Dose: 60 ml Documented by: Baclofen (Lioresal) 20 mg PO Q8H PRN PRN PRN Reason: MUSCLE SPASMS Last Admin: 06/11/20 04:36 Dose: 20 mg Documented by: Cholestyramine Resin (Questran 4gm Packet) 1.3 gm PO DAILY [facility] Last Admin: 06/10/20 10:34 Dose: 1.3 gm Documented by: Diazepam (Valium) 5 mg PO 4X/DAY PRN PRN PRN Reason: SPASMS Docusate Sodium (Colace) 100 mg PO BID [facility] Enoxaparin Sodium (Lovenox) 40 mg SC DAILY [facility] Last Admin: 06/11/20 10:36 Dose: 40 mg Documented by: Sodium Chloride () 250 mls @ 15 mls/hr IV .[id number] PRN PRN Reason: Saline Flush Last Infusion: 06/11/20 10:12 Dose: 15 mls/hr Documented by: Piperacillin Sod/Tazobactam (Sod 3.375 gm/ Sodium Chloride) 50 mls @ 12.5 mls/hr IV Q8 [facility] Last Infusion: 06/11/20 10:12 Dose: Infused Documented by: Fluconazole (Diflucan) 200 mg in 100 mls @ 100 mls/hr IV Q24 [facility] Last Infusion: 06/10/20 14:41 Dose: Infused Documented by: Potassium Chloride 40 meq/ (Sodium Chloride) 1,020 mls @ 100 mls/hr IV .[id number] [facility] Lactobacillus Acidophilus (Acidophilus) 1 tablet PO 4X/DAY [facility] Last Admin: 06/11/20 12:19 Dose: Not Given Documented by: Letrozole (Femara) 2.5 mg PO DAILY [facility] Last Admin: 06/10/20 10:37 Dose: 2.5 mg Documented by: Metoprolol Tartrate (Lopressor (Beta David)) 25 mg PO BID [facility] Last Admin: 06/10/20 23:00 Dose: 25 mg Documented by: Morphine Sulfate () 2 - 4 mg IV Q2H PRN PRN PRN Reason: Pain Score 4-10/10 Last Admin: 06/07/20 11:34 Dose: 2 mg Documented by: Morphine Sulfate () 2 - 4 mg IV Q2H PRN PRN PRN Reason: Pain Score 4-10/10 Mupirocin (Bactroban) 1 applic TOPICAL DAILY [facility]; Protocol Last Admin: 06/10/20 15:08 Dose: 1 applicatio Documented by: Nitrofurantoin Macrocrystals (Macrobid) [facility] Last Admin: 06/10/20 10:37 Dose: 100 mg Documented by: Nutritional Formula (Domingo - [place] Flavor) [facility] Last Admin: 06/11/20 10:22 Dose: Not Given Documented by: Nutritional Formula (Lactose Free) (Ensure Clear) 120 ml PO TIDCM [facility] Last Admin: 06/11/20 12:19 Dose: Not Given Documented by: Nystatin (Mycostatin Powder) 1 applic TOPICAL BID [facility]; Protocol Last Admin: 06/11/20 09:04 Dose: 1 applicatio Documented by: Oxybutynin Chloride (Ditropan) 5 mg PO BID [facility] Last Admin: 06/10/20 22:57 Dose: 5 mg Documented by: Oxycodone HCl (Oxyir) 10 mg PO Q4H PRN PRN PRN Reason: Pain Score 6-10/10 Promethazine HCl (Phenergan) 25 mg IV Q4H PRN PRN PRN Reason: NAUSEA/VOMITING Last Admin: 06/09/20 03:15 Dose: 25 mg Documented by: Sodium Chloride () 10 - 40 ml IV UD PRN PRN Reason: SALINE FLUSH Last Admin: 06/11/20 06:12 Dose: 10 ml Documented by: Medical Necessity - Tobacco Use Smoking Status: Never smoker Assessment/Plan All Active Problems Decubitus ulcer of coccygeal region, stage 2 (Acute) Pressure injury, stage 4, with gangrene (Acute) History of breast cancer (Acute) Leukocytosis (Acute) Sepsis (Acute) 1. Right ischial pressure sore, Stage IV. 2. Acute and chronic osteomyelitis. 3. Multiple sclerosis. 4. s/p excision right ischial pressure sore, Stage IV, with partial ostectomy for osteomyelitis and reconstruction with right hamstrings myocutaneous advancement flap and placement AmnioFill placental connective tissue powder (500 mg). 5. Postop fever, resolved. 6. Consolidation right lung, probable aspiration. 7. Postop ileus, resolved. 8. Hypopotassiumemia. Incision is dry and intact. Flap is soft and healing satisfactory. No clinical evidence of hematoma. Continue dry dressings daily with antibiotic ointment. Will pull the drains tomorrow. Operative culture shows Corynebacterium striatum and Anaerobic cocci in the soft tissue and Anaerobic cocci in the bone. Pathology is positive for acute and chronic osteomyelitis. She will need 6 weeks of IV antibiotics. She had been on Unasyn but because of possible aspiration, it was changed to Zosyn. Patient had diverting colostomy on . Patient has stool in the colostomy bag. NG was placed secondary to vomiting. KUB shows postop ileus. It is resolving. NG has been removed. Patient had a postop fever of 101.3 which has resolved. Probable atelectasis. Encourage incentive spirometry. CXR was done which showed no acute cardiopulmonary disease. Since then she had some vomiting and there was concern about possible aspiration. Repeat CXR showed new consolidation on the right. Her antibiotics were changed from Unasyn to Zosyn to give better pulmonary coverage. Will repeat CXR tomorrow. Urinalysis was negative. She recently had her giordano changed before her surgery. Urine culture shows preliminary yeast. She's on chronic Diflucan therapy weekly. Will make it daily for now. Her WBC continues to improve from 19.4 down to 14.0. Probably related to aspiration. Will repeat in the morning. Potassium is low. It went from 2.7 up to 3.0 after K riders and then decreased to 2.5 this morning. Will continue K riders twice a day along with adding K to the maintenance IV fluids. Her pulse and BP have stabilized and will decrease the IV fluids to 100 ml/angelique. Prealbumin was 16.2. Encourage nutritional supplementation with protein to help the healing process. She will need to be on 6 weeks of bedrest on a specialty bed (low air loss bed). ECF evaluation in process. Awaiting a precert. After discharge, will [facility]up [facility]20 for suture removal and removal of the drains. She will need to travel on a stretcher in an ambulance as she will be on bedrest.
[2020-06-11] MEDS: Potassium Chloride 40 MEQ in 0.9% Normal Saline 1,000 ML 100 MEQ IV (12:58)
--- NOTE | 2020-06-11 14:38 | CASEMGMT ---
Addendum entered by Edelmira Barraza 06/11/20 16:13: FAITH received call from Bita at [employer] stating pre-cert is still pending and they will need new COVID test as it has been over a week since pt's last test. In house testing should still be available so FAITH Will ask Physician tomorrow for new COVID test. Plus, pt still needs pre-cert and is advancing diet. Bita also asked about pt's follow up appointments at wound center. FAITH informed Bita that this worker is not sure, as physician hasn't written discharge instructions yet so FAITH is not sure when pt will need follow up appointment but can also check with MD tomorrow. Bita asked if pt will need ambulance transport and FAITH informed Bita that pt is bed ridden for six weeks so it is likely pt will need ambulance transport to follow up appointments. Bita states she has no ambulance companies available in [place] so that may be an issued. FAITH provided Bita with Physician's ambulance number and asked Bita to see if they would be able to provide transport as they are new ambulance company that [facility] is using. FAITH also can follow up with physicians ambulance tomorrow as well. Original Note: Social Work Note Pt not medically cleared for discharge today. FAITH placed a call to Bita at [employer] and left message that pt is not medically cleared for discharge but to still let this worker know if pre-cert is obtained. Plan: [facility] pending pre-cert and being medically cleared Edelmira Barraza WARDROBE ATTENDANT, FLIGHT ATTENDANT
[2020-06-11 14:40] VITALS: BP 128/68; PULSE 95; RESP 16; TEMP 36.7; O2SAT 96
[2020-06-11] MEDS: Oxybutynin 5 MG Tablet PO ×2 (16:13→22:24)
[2020-06-11] MEDS: Nitrofurantoin Macrocrystals 100 MG Capsule PO (16:13)
[2020-06-11] MEDS: Mupirocin Ointment 22gm Tube 1 APPLIC TOPICAL (16:14)
[2020-06-11 19:18] LABS: Anion Gap 5 (5-15); BUN 3 mg/dL (7-18); BUN/Creat Ratio 7.5 RATIO (10-20); Chloride 107 mmol/L (98-107); EST Glomerular Filtration Rate 169 mL/min (>60); Est Glom Filt Rate - Afr Amer 205 mL/min (>60); Estimated Creatinine Clearance 136.35 ml/min; Glucose 141 mg/dL (74-106); Potassium 3.3 mmol/L (3.5-5.1); Sodium Level 139 mmol/L (136-145)
[2020-06-11 20:00] VITALS: RESP 18
[2020-06-11 22:10] VITALS: BP 104/57; PULSE 120; RESP 18; TEMP 37.6; O2SAT 95
[2020-06-11] MEDS: ACETIC ACID 1,000 ML IRRIG.SOLN 60 ML IR (22:13)
[2020-06-11] MEDS: Docusate Sodium 100 MG Capsule PO (22:14)
[2020-06-11 22:15] VITALS: BP 104/57; PULSE 120
[2020-06-11] MEDS: Metoprolol Tartrate 25 MG Tablet PO (22:15)
[2020-06-12] VITALS (7 sets, daily range): BP systolic 98–121; BP diastolic 57–74; PULSE 85–104; RESP 16–20; TEMP 36.7–37.2; O2SAT 94–96
[2020-06-12] MEDS: Potassium Chloride 10mEq/100mL 10 MEQ/100 ML IV.SOLN. 100 MEQ IV BOLUS (02:36)
[2020-06-12] MEDS: 0.9% Saline Lock 10 ML Syringe IV ×5 (04:19→22:07)
[2020-06-12] MEDS: Potassium Chloride 40 MEQ in 0.9% Normal Saline 1,000 ML 100 MEQ IV (04:19)
[2020-06-12] MEDS: Potassium Chloride 10mEq/100mL 10 MEQ/100 ML IV.SOLN. 40 MEQ IV BOLUS (04:43)
[2020-06-12 05:29] LABS: Hematocrit 31.9 % (37-47); Hemoglobin 9.9 g/dL (12.0-15.0); Mean Corpuscular Hgb 26.4 pg (27.0-32.0); Mean Corpuscular Volume 85.1 fL (81-99); Mean Platelet Vol. 9.2 fl (6.2-12.0); Platelet Count 489 K/mm3 (150-450); RBC Distribution Width CV 14.7 % (11.6-14.6); RBC Distribution Width SD 45.3 fl (35.1-43.9); Red Blood Count 3.75 M/mm3 (4.2-5.4); White Blood Count 10.1 K/mm3 (4.4-11.0)
[2020-06-12 05:42] LABS: Anion Gap 5 (5-15); BUN 7 mg/dL (7-18); BUN/Creat Ratio 27.5 RATIO (10-20); Calcium,Total 8.3 mg/dL (8.5-10.1); Chloride 108 mmol/L (98-107); Creatinine, Serum 0.26 mg/dL (0.55-1.02); EST Glomerular Filtration Rate 286 mL/min (>60); Est Glom Filt Rate - Afr Amer 346 mL/min (>60); Estimated Creatinine Clearance 209.78 ml/min; Glucose 107 mg/dL (74-106); Potassium 3.9 mmol/L (3.5-5.1); Sodium Level 139 mmol/L (136-145)
[2020-06-12] MEDS: Baclofen 10 MG Tablet 20 MG PO ×2 (06:40→22:15)
--- NOTE | 2020-06-12 08:00 | RAD_ITS ---
STUDY: X-RAY CHEST REASON FOR EXAM: Female, 65 years old. ASPIRATION - CONSOLIDATION ON THE RIGHT. PT ST IMPROVEMENT TECHNIQUE: Single AP portable view of the chest. COMPARISON: Comparison is made with prior examination dated June 09, 2020. FINDINGS: Surgical clips are seen in the right axillary region. Persistent increased markings at the lung bases worse on the left side. There is been mild improvement as compared to prior study. There is no demonstrated pleural abnormality. Normal size heart. Normal mediastinum and fyn. Normal visualized pulmonary arteries. There is atherosclerotic calcification of the aortic arch with tortuosity. There are diffuse degenerative changes of the visualized thoracic spine. Dextroscoliosis. Normal visualized ribs, clavicles, and shoulders. There is no demonstrated abnormality of the visualized soft tissue structures of the upper abdomen. RAD/Chest 1 View (Portable) IMPRESSION: Persistent bibasilar infiltrates more prominent on the left side. There has been improvement as compared to prior study. Electronically Signed: Shar Zamora, at 12:41 EDT , Service support ,
--- NOTE | 2020-06-12 09:50 | PN.SURG_ITS ---
Subjective: Patient seems to be doing well today. She did have a little bit of nausea when we start a regular diet yesterday morning but when she took it slower in the afternoon she was able to tolerate regular food with no nausea or vomiting. She is not have any abdominal pain. She is producing stool and gas in her colostomy bag. - Physical Exam Vitals/I&O's: Vital Signs Temp Pulse Resp BP Pulse Ox 98.1 F 85 20 H 121/67 H 96 06/12/20 06:45 06/12/20 06:45 06/12/20 06:45 06/12/20 06:45 06/12/20 06:45 Oxygen Flow Rate (L/min) 2 Oxygen Delivery Method Room Air Weight: 176 lb 9.444 oz Body Mass Index (BMI) 27.6 Intake and Output for Last 24 Hours 06/10/20 06/11/20 06/12/20 23:59 23:59 23:59 Intake Total 4820.75 / 5020.75 5377.09 / 5377.09 1043.33 / 1043.33 Output Total 6299 / 7549 7970 / 7970 1750 / 1750 Balance -1478.25 / -2528.25 -2592.91 / -2592.91 -706.67 / -706.67 General: Alert, Oriented x3 Lungs: Normal air movement Abdomen: Soft, Non Tender, Non-Distended Microbiology Past 72 Hours 06/07/20 20:30 Suprapubic Tap Urine Culture - Preliminary Yeast Like Organism Laboratory Results 06/11/20 18:38: Sodium 139, Potassium 3.3 L, Chloride 107, Carbon Dioxide 27.0, Anion Gap 5, BUN 3 L, Creatinine 0.40 L, Estim Creat Clear Calc 136.35, Est GFR (MDRD) Af Amer 205, Est GFR (MDRD) Non-Af 169, BUN/Creatinine Ratio 7.5 L, Glucose 141 H, Calcium 8.0 L 06/12/20 05:20: Sodium 139, Potassium 3.9, Chloride 108 H, Carbon Dioxide 26.0, Anion Gap 5, BUN 7, Creatinine 0.26 L, Estim Creat Clear Calc 209.78, Est GFR (MDRD) Af Amer 346, Est GFR (MDRD) Non-Af 286, BUN/Creatinine Ratio 27.5 H, Glucose 107 H, Calcium 8.3 L 06/12/20 05:20: WBC 10.1, RBC 3.75 L, Hgb 9.9 L, Hct 31.9 L, MCV 85.1, MCH 26.4 L, MCHC 31.0 L, RDW Std Deviation 45.3 H, RDW Coeff of Homer 14.7 H, Plt Count 489 H, MPV 9.2 Current Medications Acetaminophen (Tylenol Liquid) 650 mg PO Q6H PRN PRN PRN Reason: fever/Noncardiac pain() Acetic Acid (Acetic Acid) 60 ml IR QHS [facility] Last Admin: 06/11/20 22:13 Dose: 60 ml Documented by: Baclofen (Lioresal) 20 mg PO Q8H PRN PRN PRN Reason: MUSCLE SPASMS Last Admin: 06/12/20 06:40 Dose: 20 mg Documented by: Cholestyramine Resin (Questran 4gm Packet) 1.3 gm PO DAILY [facility] Last Admin: 06/11/20 16:15 Dose: Not Given Documented by: Diazepam (Valium) 5 mg PO 4X/DAY PRN PRN PRN Reason: SPASMS Docusate Sodium (Colace) 100 mg PO BID [facility] Last Admin: 06/11/20 22:14 Dose: 100 mg Documented by: Enoxaparin Sodium (Lovenox) 40 mg SC DAILY [facility] Last Admin: 06/11/20 10:36 Dose: 40 mg Documented by: Sodium Chloride () 250 mls @ 15 mls/hr IV .[id number] PRN PRN Reason: Saline Flush Last Infusion: 06/11/20 13:06 Dose: Infused Documented by: Piperacillin Sod/Tazobactam (Sod 3.375 gm/ Sodium Chloride) 50 mls @ 12.5 mls/hr IV Q8 [facility] Last Admin: 06/12/20 06:40 Dose: 12.5 mls/hr Documented by: Fluconazole (Diflucan) 200 mg in 100 mls @ 100 mls/hr IV Q24 [facility] Last Infusion: 06/11/20 13:59 Dose: Infused Documented by: Potassium Chloride 40 meq/ (Sodium Chloride) 1,020 mls @ 100 mls/hr IV .[id number] [facility] Last Admin: 06/12/20 04:19 Dose: 100 mls/hr Documented by: Lactobacillus Acidophilus (Acidophilus) 1 tablet PO 4X/DAY [facility] Last Admin: 06/11/20 22:14 Dose: 1 tablet Documented by: Letrozole (Femara) 2.5 mg PO DAILY [facility] Last Admin: 06/11/20 17:54 Dose: 2.5 mg Documented by: Metoprolol Tartrate (Lopressor (Beta David)) 25 mg PO BID [facility] Last Admin: 06/11/20 22:15 Dose: 25 mg Documented by: Morphine Sulfate () 2 - 4 mg IV Q2H PRN PRN PRN Reason: Pain Score 4-10/10 Last Admin: 06/07/20 11:34 Dose: 2 mg Documented by: Morphine Sulfate () 2 - 4 mg IV Q2H PRN PRN PRN Reason: Pain Score 4-10/10 Mupirocin (Bactroban) 1 applic TOPICAL DAILY [facility]; Protocol Last Admin: 06/11/20 16:14 Dose: 1 applicatio Documented by: Nitrofurantoin Macrocrystals (Macrobid) [facility] Last Admin: 06/11/20 16:13 Dose: 100 mg Documented by: Nutritional Formula (Domingo - [place] Flavor) 1 packet PO BIDCM [facility] Last Admin: 06/11/20 18:16 Dose: 1 packet Documented by: Nutritional Formula (Lactose Free) (Ensure Clear) 120 ml PO TIDCM [facility] Last Admin: 06/11/20 18:16 Dose: Not Given Documented by: Nystatin (Mycostatin Powder) 1 applic TOPICAL BID [facility]; Protocol Last Admin: 06/11/20 22:15 Dose: 1 applicatio Documented by: Oxybutynin Chloride (Ditropan) 5 mg PO BID [facility] Last Admin: 06/11/20 22:24 Dose: 5 mg Documented by: Oxycodone HCl (Oxyir) 10 mg PO Q4H PRN PRN PRN Reason: Pain Score 6-10/10 Promethazine HCl (Phenergan) 25 mg IV Q4H PRN PRN PRN Reason: NAUSEA/VOMITING Last Admin: 06/09/20 03:15 Dose: 25 mg Documented by: Sodium Chloride () 10 - 40 ml IV UD PRN PRN Reason: SALINE FLUSH Last Admin: 06/12/20 06:45 Dose: 20 ml Documented by: Medical Necessity - Tobacco Use Smoking Status: Never smoker Assessment/Plan All Active Problems Decubitus ulcer of coccygeal region, stage 2 (Acute) Pressure injury, stage 4, with gangrene (Acute) History of breast cancer (Acute) Leukocytosis (Acute) Sepsis (Acute) 65-year-old female status post laparoscopic sigmoid colectomy with end colostomy 1. Patient seems to be doing well today. She did have a little bit of nausea when we started diet yesterday but that resolved and she is now tolerating regular diet with no nausea or vomiting. She is producing stool and gas in her colostomy bag. She is okay for discharge from my standpoint. Waiting on precertification from her insurance company. Continue diet as tolerated and patient may remove her bandages tomorrow. Gabriele Coyne MD Pager: [facility] [address] [place] [address], [address] [place] [address] Office:
[2020-06-12] MEDS: Metoprolol Tartrate 25 MG Tablet PO (10:17)
[2020-06-12] MEDS: Oxybutynin 5 MG Tablet PO ×2 (10:17→22:12)
[2020-06-12] MEDS: Docusate Sodium 100 MG Capsule PO ×2 (10:17→22:11)
[2020-06-12] MEDS: Enoxaparin 40 MG/0.4 ML Syringe SC (10:18)
[2020-06-12] MEDS: Ensure Clear 120 ML Liquid PO ×2 (10:33→15:47)
--- NOTE | 2020-06-12 10:47 | CASEMGMT ---
Addendum entered by Edelmira Barraza 06/12/20 10:49: Pt's Shelia at [facility] requesting to speak to SW. Toney requesting update. FAITH updated Shelia that pre-cert is still pending and once pre-cert is obtained and once pt is medically cleared, pt is able to discharge to [facility]. Original Note: Social Work Note SW reviewed progress notes. Per physician, pt will need follow up at wound center appointment at 06/17/20 and pt will need to travel on a stretcher in an ambulance as pt is on bedrest. FAITH placed a call to physicians ambulance. Physicians states they would be willing to transport pt to follow up appointment. FAITH placed a call to Bita at [facility] and updated her that physicians ambulance is willing to transport and SW will speak with physician to get another COVID test. Bita states pre-cert is still pending. SW attempted to call physician, no answer, voicemail is full. SW will attempt to speak with physician again. Plan: [place] [facility] pending pre-cert Edelmira Barraza OUTBOARD SYSTEM OPERATOR, SPINNING BATH PERSON
--- NOTE | 2020-06-12 13:36 | CASEMGMT ---
Addendum entered by Edelmira Barraza 06/12/20 16:21: FAITH still hasn't heard from [facility] regarding pre-cert and peripheral lines. SW is leaving for the day, will follow up with [facility] tomorrow. Pt unable to discharge today as pre-cert is still needed and it is undecided if pt is able to discharge with peripheral line or if pt will need central line. Plan: [place] [facility] pending pre-cert and decision regarding peripheral lines Original Note: Social Work Note FAITH spoke with physician. Pt will not need to be seen in the wound center until the or and pt will not need followed up with again in the wound center until after pt is off 6 week bedrest so pt's would be able to transport pt for any additional follow up care at the wound center. SW updated physician that COVID test has been ordered as SNF requested another one to be completed. Physician states pt is medically cleared for discharge once pre-cert is obtained. FAITH placed a call to Bita at [facility] and updated her on above information. Bita asked if pt will be coming with port access, central line, or PICC line. FAITH spoke with RAMÓN HART who spoke with charge nurse. Charge nurse spoke with physician. Physician will be changing pt's IV from Unasyn to Zosyn and pt will come with peripheral line and no PICC as PICC was unable to be inserted. If needed pt could come back to [facility] for central line placement. FAITH placed a call to Bita at [facility] of this. Bita states pt would need to come with PICC and FAITH explained that PICC was unable to be inserted. FAITH asked about pt coming with peripheral line and then getting central line and Bita states she will need to speak with RAN Anderson and then give this worker a call back. FAITH waiting for call back. Edelmira Barraza MANAGER RADIO, BACK TENDER CLOTH PRINTING
--- NOTE | 2020-06-12 13:37 | PCM.TXEXTCAR ---
- Diet 06/11/20 16:29 Diet: Transitional Is pt able to select menu?: Yes - Routine Orders/Code Status Patino Catheter Size: 16 Change Patino Catheter: monthy and prn Routine Lab Work: CBC - weekly on Wednesday while on IV antibiotics. Fax results t [phone] and [phone]., - - CMP, ESR, CRP weekly on Wednesday while on IV antibiotics. Fax results t [phone] and [phone]. Code Status: Full Code - Wound(s) coccyx Wound Type: Surgical Incision right ischium/posterior thigh Wound Type: muscle flap Dressing Change: bactroban with dry dressing - followed by compression yolanda wrap. ABD Wound Type: Surgical Incision - Therapies Weight Bearing: Non weight bearing - complete bed rest. Extremity Affected:: Bilateral Lower Physical Therapy: Eval and Treat - DO NOT BEND AT THE HIP. If you need to do range of motion at the knee, then turn patient on her side for knee range of motion so you can keet the hip straight. Occupational Therapy: Eval and Treat - Allergies/Procedures Done in Hospital Allergies/Adverse Reactions: Allergies bacitracin [From Neosporin ([id number])] Allergy (Verified 04/25/20 13:17) Rash neomycin [From Neosporin ([id number])] Allergy (Verified 04/25/20 13:17) Rash ondansetron [From Zofran] Allergy (Verified 04/30/20 13:09) palpitations polymyxin B [From Neosporin ([id number]-bih-jhyst)] Allergy (Verified 04/25/20 13:17) Rash Sulfa (Sulfonamide Antibiotics) Allergy (Verified 04/25/20 13:17) Rash Procedures: - - 05/27/20 - 1. Excision right ischial pressure sore, Stage IV, with partial ostectomy for osteomyelitis. 2. Reconstruction with right hamstrings myocutaneous advancement flap. 3. Placement AmnioFill placental connective tissue powder (500 mg). 06/06/20 - Laparoscopic sigmoid colectomy with end colostomy. - Type of Care/Length of Stay Estimated LOS: More Than 30 Days Type of Care Needed: Skilled Rehab Potential: Fair Prognosis: Fair - Additional Orders/Day of Discharge Additional Orders: Continue Zosyn 3.375 grams IV q8 hours until July 08, 2020. H&P will serve as current which was dated: 05/26/20 Day of Discharge: 06/12/20 - Dietary and Speech Recommendations Dietitian Recommendations/Changes: Advance diet as tolerated to transitional. Continue Ensure Clear and Domingo as ordered. - Follow Up Care Primary Care Physician: Jovon Levy MD [Primary Care Provider] - Please Follow Up With: Jose E Dougherty MD When: wednesday06/24/20 at [facility]. call [phone] for appt.
[2020-06-12] MEDS: Nystatin Powder 15gm Bottle 1 APPLIC TOPICAL ×2 (14:25→22:11)
--- NOTE | 2020-06-12 14:36 | PCM.DC.SUM ---
Discharge Date and Diagnosis Date of Admission: 05/26/20 Date of Discharge: 06/12/20 - Secondary Discharge Diagnosis Chronic Problems: Chronic Problems Candidal skin infection (Chronic) Chronic osteomyelitis of right pelvic region (Chronic) Right ischial pressure sore, stage 4 (Chronic) Pressure injury of sacral region, stage 2 (Chronic) Debility (Chronic) Multiple sclerosis (Chronic) Psoriasis (Chronic) Bilateral lower extremity edema (Chronic) Pressure injury of buttock, stage 4 (Chronic) Hospital Course and Treatment Imaging Results: 06/12/20 08:00 CXR [Chest 1 View (Portable)] [RAD] Routine Consultations 05/28/20 06:43 Consult: Onc/Wound/hat parts cutter machine Routine Comment: Reason for Consult:: muscle flap 06/04/20 07:46 Consult: Onc/Wound/hat parts cutter machine Routine Comment: Comments:: elland for colostomy being placed on 06/06 Operations: - - debridement of ischial ulcer Summary of Care Provided: The patient is a 65 year old F [] - Physical Exam Vitals/I&O's: Vital Signs Temp Pulse Resp BP Pulse Ox 98.8 F 96 18 113/74 96 06/12/20 10:13 06/12/20 10:17 06/12/20 10:13 06/12/20 10:13 06/12/20 10:13 Oxygen Flow Rate (L/min) 2 Oxygen Delivery Method Room Air Weight: 176 lb 9.444 oz Body Mass Index (BMI) 27.6 Intake and Output for Last 24 Hours 06/10/20 06/11/20 06/12/20 23:59 23:59 23:59 Intake Total 4820.75 / 5020.75 5377.09 / 5377.09 2567.25 / 2567.25 Output Total 6299 / 7549 7970 / 7970 3680 / 3680 Balance -1478.25 / -2528.25 -2592.91 / -2592.91 -1112.75 / -1112.75 Microbiology Past 72 Hours 06/07/20 20:30 Suprapubic Tap Urine Culture - Final Yeast, not Shyanne albicans Laboratory Results 06/11/20 18:38: Sodium 139, Potassium 3.3 L, Chloride 107, Carbon Dioxide 27.0, Anion Gap 5, BUN 3 L, Creatinine 0.40 L, Estim Creat Clear Calc 136.35, Est GFR (MDRD) Af Amer 205, Est GFR (MDRD) Non-Af 169, BUN/Creatinine Ratio 7.5 L, Glucose 141 H, Calcium 8.0 L 06/12/20 05:20: Sodium 139, Potassium 3.9, Chloride 108 H, Carbon Dioxide 26.0, Anion Gap 5, BUN 7, Creatinine 0.26 L, Estim Creat Clear Calc 209.78, Est GFR (MDRD) Af Amer 346, Est GFR (MDRD) Non-Af 286, BUN/Creatinine Ratio 27.5 H, Glucose 107 H, Calcium 8.3 L 06/12/20 05:20: WBC 10.1, RBC 3.75 L, Hgb 9.9 L, Hct 31.9 L, MCV 85.1, MCH 26.4 L, MCHC 31.0 L, RDW Std Deviation 45.3 H, RDW Coeff of Homer 14.7 H, Plt Count 489 H, MPV 9.2 06/12/20 12:05: COVID-19 ([place]) Pending Current Medications Acetaminophen (Tylenol Liquid) 650 mg PO Q6H PRN PRN PRN Reason: fever/Noncardiac pain(-09/07) Acetic Acid (Acetic Acid) 60 ml IR QHS [facility] Last Admin: 06/11/20 22:13 Dose: 60 ml Documented by: Baclofen (Lioresal) 20 mg PO Q8H PRN PRN PRN Reason: MUSCLE SPASMS Last Admin: 06/12/20 06:40 Dose: 20 mg Documented by: Cholestyramine Resin (Questran 4gm Packet) 1.3 gm PO DAILY@0600 [facility] Diazepam (Valium) 5 mg PO 4X/DAY PRN PRN PRN Reason: SPASMS Docusate Sodium (Colace) 100 mg PO BID [facility] Last Admin: 06/12/20 10:17 Dose: 100 mg Documented by: Enoxaparin Sodium (Lovenox) 40 mg SC DAILY [facility] Last Admin: 06/12/20 10:18 Dose: 40 mg Documented by: Sodium Chloride () 250 mls @ 15 mls/hr IV .[id number] PRN PRN Reason: Saline Flush Last Infusion: 06/12/20 14:29 Dose: 0 mls/hr Documented by: Piperacillin Sod/Tazobactam (Sod 3.375 gm/ Sodium Chloride) 50 mls @ 12.5 mls/hr IV Q8 [facility] Last Admin: 06/12/20 14:25 Dose: 12.5 mls/hr Documented by: Fluconazole (Diflucan) 200 mg in 100 mls @ 100 mls/hr IV Q24 [facility] Last Infusion: 06/12/20 11:50 Dose: Infused Documented by: Potassium Chloride 40 meq/ (Sodium Chloride) 1,020 mls @ 100 mls/hr IV .[id number] [facility] Last Infusion: 06/12/20 14:26 Dose: 0 mls/hr Documented by: Lactobacillus Acidophilus (Acidophilus) 1 tablet PO 4X/DAY [facility] Last Admin: 06/12/20 14:25 Dose: 1 tablet Documented by: Letrozole (Femara) 2.5 mg PO DAILY [facility] Last Admin: 06/12/20 10:18 Dose: 2.5 mg Documented by: Metoprolol Tartrate (Lopressor (Beta David)) 25 mg PO BID [facility] Last Admin: 06/12/20 10:17 Dose: 25 mg Documented by: Morphine Sulfate () 2 - 4 mg IV Q2H PRN PRN PRN Reason: Pain Score 4-10/10 Last Admin: 06/07/20 11:34 Dose: 2 mg Documented by: Morphine Sulfate () 2 - 4 mg IV Q2H PRN PRN PRN Reason: Pain Score 4-10/10 Mupirocin (Bactroban) 1 applic TOPICAL DAILY [facility]; Protocol Last Admin: 06/12/20 12:12 Dose: Not Given Documented by: Nitrofurantoin Macrocrystals (Macrobid) 100 mg PO LUNCH [facility] Nutritional Formula (Domingo - Pine Flavor) 1 packet PO 1200,1700 [facility] Last Admin: 06/12/20 12:13 Dose: Not Given Documented by: Nutritional Formula (Lactose Free) (Ensure Clear) 120 ml PO TIDCM [facility] Last Admin: 06/12/20 11:30 Dose: Not Given Documented by: Nystatin (Mycostatin Powder) 1 applic TOPICAL BID [facility]; Protocol Last Admin: 06/12/20 14:25 Dose: 1 applicatio Documented by: Oxybutynin Chloride (Ditropan) 5 mg PO BID [facility] Last Admin: 06/12/20 10:17 Dose: 5 mg Documented by: Oxycodone HCl (Oxyir) 10 mg PO Q4H PRN PRN PRN Reason: Pain Score 6-10/10 Promethazine HCl (Phenergan) 25 mg IV Q4H PRN PRN PRN Reason: NAUSEA/VOMITING Last Admin: 06/09/20 03:15 Dose: 25 mg Documented by: Sodium Chloride () 10 - 40 ml IV UD PRN PRN Reason: SALINE FLUSH Last Admin: 06/12/20 10:16 Dose: 20 ml Documented by: Home Medications: Medications to take at Discharge Ascorbic Acid [Vitamin C] 1 tab PO BID 11/03/19 Baclofen 1 - 2 tab PO Q8H PRN PRN 11/03/19 Cholecalciferol (VIT D3) [Vitamin D3] 1,000 unit PO DINNER 11/03/19 Cholestyramine (with Sugar) [Cholestyramine Powder] 1 packet PO DAILY 11/03/19 Cranberry Fruit Extract [Cranberry] 200 mg PO DINNER 11/03/19 Letrozole 1 tab PO DAILY 11/03/19 Oxybutynin [Ditropan] 2 tab PO BID 11/03/19 Vitamin E (Dl,Tocopheryl Acet) [Vitamin E] 400 unit PO DINNER 11/03/19 Acetaminophen [Tylenol Tablet] 650 mg PO Q6H PRN PRN tab 11/08/19 nystatin 100,000 unit/gram topical powder 1 applic TOPICAL TID 15 Days #60 g 03/18/20 Aboric Acid 600 mg RECTAL DAILY 04/25/20 Apixaban [Eliquis] 5 mg PO BID 04/25/20 Nitrofurantoin Macrocrystal [Macrodantin] 50 mg PO DINNER 04/25/20 Pro Stat 5 ml PO DINNER 04/25/20 Fluconazole 200 mg PO QWEEK 05/02/20 Amox/Clavulanate Tablet [Augmentin Tablet] 875 mg PO Q12H 05/26/20 L. Rhamnosus GG/Inulin [Culturelle Digest 10B Cell Cap] 2 ea PO BID 05/26/20 Letrozole [Femara] 2.5 mg PO DAILY 05/26/20 Magnesium Hydroxide [Milk Of Magnesia] 30 ml PO PRN PRN 05/26/20 Metoprolol Tartrate [Lopressor (beta david)] 25 mg PO BID 05/26/20 Nystatin 1 applic TOPICAL BID 05/26/20 Ampicillin Sodium/Sulbactam Na [Unasyn 1.5 gm Vial] 1.5 gm IV Q8 40 Days #120 vial 05/29/20 Following Prescrptions Were Given to Patient: Ampicillin Sodium/Sulbactam Na [Unasyn 1.5 gm Vial] 1.5 gm IV Q8 40 Days #120 vial Prescription Printed Primary Care Physician: Jovon Levy MD [Primary Care Provider] - Please Follow Up With: Jose E Dougherty MD When: wednesday06/24/20 at wound center. call [phone] for appt. Medical Necessity - Tobacco Use Smoking Status: Never smoker Meaningful Use Info Meaningful Use Diagnoses (Choose all that apply): None applicable
[2020-06-12] MEDS: Nitrofurantoin Macrocrystals 100 MG Capsule PO (15:47)
[2020-06-12] MEDS: ACETIC ACID 1,000 ML IRRIG.SOLN 60 ML IR (22:12)
[2020-06-13 02:45] VITALS: BP 99/59; PULSE 102; RESP 18; TEMP 37.1; O2SAT 95
[2020-06-13] MEDS: Cholestyramine/Sucrose 4 GM/PACKET 1.3 GM PO (05:59)
[2020-06-13] MEDS: Baclofen 10 MG Tablet 20 MG PO ×2 (06:06→14:09)
--- NOTE | 2020-06-13 08:31 | CASEMGMT ---
Addendum entered by Edelmira Barraza 06/13/20 13:30: FAITH received call from [facility] and pt's follow up appointment is 06/24/2020 at 11:00am. FAITH placed a call to Bita at [facility] and left message updating her that pt will get central line placed tomorrow and to let this worker know when pre-cert is obtained as pre-cert is still pending. FAITH also updated Bita on appointment time at wound center and once this worker knows about how long pt's appointment will be at wound center, this worker will set up transport for follow up appointment. Addendum entered by Edelmira Barraza 06/13/20 10:14: FAITH received call from Bita at [facility] stating DON is requiring pt come with central line. FAITH asked Bita about pre-cert. Bita states pre-cert is still pending. FAITH asked Bita about pt's follow up appointment at wound center. Bita asked this worker to arrange follow up appointment at Wound Center and also arrange transport to pt's follow up appointment. FAITH placed a call to [facility], left message to schedule pt's follow up appointment and to let this worker know the time. FAITH updated that pt will get central line placed tomorrow at either 11:45am or 2:00pm. Original Note: Social Work Note FAITH placed a call to Bita at [facility] and left message regarding pre-cert and peripheral lines decision. FAITH informed Bita that discharge was in yesterday for pt so pt is medically ready for discharge and the goal is to get pt discharged today. FAITH waiting for call back. Plan: [facility] pending pre-cert and decision regarding peripheral lines Edelmira Barraza CHICKEN TENDER, PLUG STITCHER
[2020-06-13 10:00] VITALS: BP 101/57; PULSE 115; RESP 16; TEMP 36.7; O2SAT 96
[2020-06-13] MEDS: Docusate Sodium 100 MG Capsule PO ×2 (10:19→21:55)
[2020-06-13] MEDS: Mupirocin Ointment 22gm Tube 1 APPLIC TOPICAL (10:20)
[2020-06-13] MEDS: Nitrofurantoin Macrocrystals 100 MG Capsule PO (10:20)
[2020-06-13] MEDS: Oxybutynin 5 MG Tablet PO ×2 (10:20→21:55)
[2020-06-13] MEDS: Ensure Clear 120 ML Liquid PO ×3 (10:20→18:35)
[2020-06-13] MEDS: Enoxaparin 40 MG/0.4 ML Syringe SC (10:25)
[2020-06-13] MEDS: Nystatin Powder 15gm Bottle 1 APPLIC TOPICAL ×2 (10:26→21:56)
[2020-06-13] MEDS: 0.9% Saline Lock 10 ML Syringe IV (10:28)
[2020-06-13 14:00] VITALS: BP 92/60; PULSE 109; RESP 18; TEMP 37.2; O2SAT 98
--- NOTE | 2020-06-13 16:39 | CASEMGMT ---
Social Work Note FAITH placed a call to Physician to inquire about how long pt's appointment will be at the wound center as ambulance company needs to know. Physician states pt's appointment will be about an hour. SW placed a call to physicians ambulance. Physician states since they are not in contract with [facility] they are not able to do transport for pt. FAITH explained that yesterday this worker spoke to someone at physicians who had said they would be able to do it. Physicians is now saying they are not able to do the transport. FAITH discussed case with Celeste CAVANAUGH who states Tigist, quality treasury management sales consultant, will be calling [facility] [employer] to discuss pt's case. It should also be noted that FAITH still hasn't heard from [facility] regarding pre-cert, so at this time pre-cert is still pending. SW to continue to follow, will await [employer]'s return phone call to artist's manager. Plan: [facility] pending pre-cert, pending pt getting central line placed tomorrow and pending transportation being arranged to pt's follow up appointment at the Wound Center on 06/24/2020. Edelmira Barraza [id number] ARMOR CREWMAN, ANGLEDOZER OPERATOR
--- NOTE | 2020-06-13 18:16 | PCM.PN.BLA ---
Progress Note Patient is awaiting precert for discharge to the ECF. At present, she has a peripheral IV for her antibiotics. The ECF informed us that a central line is necessary for the IV antibiotics. A PICC line was attempted earlier in this admission and it could not be advanced secondary to anatomy and scar tissue. General Surgery is planning on placing a port tomorrow in order to continue her IV antibiotics at the ECF. She is currently on Zosyn and Diflucan. Diagnostic Data Chest X-Ray 06/12/20 08:00 IMPRESSION: Persistent bibasilar infiltrates more prominent on the left side. There has been improvement as compared to prior study. Electronically Signed: Shar Zamora, at 12:41 EDT , Service support ,
[2020-06-13 20:30] VITALS: BP 110/68; PULSE 84; RESP 16; TEMP 37.4; O2SAT 95
[2020-06-13 21:56] VITALS: PULSE 93
[2020-06-13] MEDS: Metoprolol Tartrate 25 MG Tablet PO (21:56)
[2020-06-13] MEDS: ACETIC ACID 1,000 ML IRRIG.SOLN 60 ML IR (21:56)
[2020-06-14] VITALS (13 sets, daily range): BP systolic 93–114; BP diastolic 54–69; PULSE 91–117; RESP 16–18; TEMP 36.4–37.7; O2SAT 93–98; BMI 27.6
--- NOTE | 2020-06-14 07:33 | PCM.PN.SRG ---
Subjective: Patient is doing well this morning with no complaints - Physical Exam Vitals/I&O's: Vital Signs Temp Pulse Resp BP Pulse Ox 98.8 F 91 16 107/54 L 95 06/14/20 02:29 06/14/20 02:29 06/14/20 02:29 06/14/20 02:29 06/14/20 02:29 Oxygen Flow Rate (L/min) 2 Oxygen Delivery Method Room Air Weight: 176 lb 9.444 oz Body Mass Index (BMI) 27.6 Intake and Output for Last 24 Hours 06/12/20 06/13/20 06/14/20 23:59 23:59 23:59 Intake Total 3164.25 / 3164.25 2549.00 / 3149.00 650 / 650 Output Total 4630 / 4630 4400 / 5150 1500 / 1500 Balance -1465.75 / -1465.75 -1851.00 / -2001.00 -850 / -850 General: Alert, Oriented x3 Lungs: Normal air movement Abdomen: Soft, Non Tender, Non-Distended Microbiology Past 72 Hours 06/07/20 20:30 Suprapubic Tap Urine Culture - Final Shyanne parapsilosis Current Medications Acetaminophen (Tylenol Liquid) 650 mg PO Q6H PRN PRN PRN Reason: fever/Noncardiac pain(-09/07) Acetic Acid (Acetic Acid) 60 ml IR QHS [facility] Last Admin: 06/13/20 21:56 Dose: 60 ml Documented by: Baclofen (Lioresal) 20 mg PO Q8H PRN PRN PRN Reason: MUSCLE SPASMS Last Admin: 06/13/20 14:09 Dose: 20 mg Documented by: Cholestyramine Resin (Questran 4gm Packet) 1.3 gm PO DAILY@0600 [facility] Last Admin: 06/14/20 05:14 Dose: Not Given Documented by: Diazepam (Valium) 5 mg PO 4X/DAY PRN PRN PRN Reason: SPASMS Docusate Sodium (Colace) 100 mg PO BID [facility] Last Admin: 06/13/20 21:55 Dose: 100 mg Documented by: Enoxaparin Sodium (Lovenox) 40 mg SC DAILY [facility] Last Admin: 06/13/20 10:25 Dose: 40 mg Documented by: Sodium Chloride () 250 mls @ 15 mls/hr IV .[id number] PRN PRN Reason: Saline Flush Last Infusion: 06/13/20 14:01 Dose: 0 mls/hr Documented by: Piperacillin Sod/Tazobactam (Sod 3.375 gm/ Sodium Chloride) 50 mls @ 12.5 mls/hr IV Q8 [facility] Last Admin: 06/14/20 05:13 Dose: 12.5 mls/hr Documented by: Fluconazole (Diflucan) 200 mg in 100 mls @ 100 mls/hr IV Q24 [facility] Last Infusion: 06/13/20 11:22 Dose: Infused Documented by: Lactobacillus Acidophilus (Acidophilus) 1 tablet PO 4X/DAY [facility] Last Admin: 06/13/20 21:55 Dose: 1 tablet Documented by: Letrozole (Femara) 2.5 mg PO DAILY [facility] Last Admin: 06/13/20 10:20 Dose: 2.5 mg Documented by: Metoprolol Tartrate (Lopressor (Beta David)) 25 mg PO BID [facility] Last Admin: 06/13/20 21:56 Dose: 25 mg Documented by: Morphine Sulfate () 2 - 4 mg IV Q2H PRN PRN PRN Reason: Pain Score 4-10/10 Last Admin: 06/07/20 11:34 Dose: 2 mg Documented by: Morphine Sulfate () 2 - 4 mg IV Q2H PRN PRN PRN Reason: Pain Score 4-10/10 Mupirocin (Bactroban) 1 applic TOPICAL DAILY [facility]; Protocol Last Admin: 06/13/20 10:20 Dose: 1 applicatio Documented by: Nitrofurantoin Macrocrystals (Macrobid) 100 mg PO LUNCH [facility] Last Admin: 06/13/20 10:20 Dose: 100 mg Documented by: Nutritional Formula (Domingo - [place] Flavor) 1 packet PO 1200,1700 [facility] Last Admin: 06/13/20 18:35 Dose: 1 packet Documented by: Nutritional Formula (Lactose Free) (Ensure Clear) 120 ml PO TIDCM [facility] Last Admin: 06/13/20 18:35 Dose: 120 ml Documented by: Nystatin (Mycostatin Powder) 1 applic TOPICAL BID [facility]; Protocol Last Admin: 06/13/20 21:56 Dose: 1 applicatio Documented by: Oxybutynin Chloride (Ditropan) 5 mg PO BID [facility] Last Admin: 06/13/20 21:55 Dose: 5 mg Documented by: Oxycodone HCl (Oxyir) 10 mg PO Q4H PRN PRN PRN Reason: Pain Score 6-10/10 Promethazine HCl (Phenergan) 25 mg IV Q4H PRN PRN PRN Reason: NAUSEA/VOMITING Last Admin: 06/09/20 03:15 Dose: 25 mg Documented by: Sodium Chloride () 10 - 40 ml IV UD PRN PRN Reason: SALINE FLUSH Last Admin: 06/13/20 10:28 Dose: 10 ml Documented by: Medical Necessity - Tobacco Use Smoking Status: Never smoker Assessment/Plan All Active Problems Decubitus ulcer of coccygeal region, stage 2 (Acute) Pressure injury, stage 4, with gangrene (Acute) History of breast cancer (Acute) Leukocytosis (Acute) Sepsis (Acute) 65-year-old female status post colostomy for ischial sore 1. Patient is doing well this morning and tolerating regular diet. Patient needs definitive IV [facility]. PICC line was attempted earlier during this admission but was unable to be placed due to stenosis and scar tissue. I was consulted for port placement. I discussed left chest port placement with the patient. She had a previous left chest port during her breast cancer treatment. I explained that if I was unable to place a left-sided chest port I could convert to a right sided IJ chest port. Patient understands. I discussed the risks including melena to bleeding, infection, pneumothorax, line infection, DVT. Patient understands the risks and is willing to proceed. Lovenox is being held today. Gabriele Coyne MD Pager: [facility] [address] [place] [address], [address] [place] [address] Office:
--- NOTE | 2020-06-14 09:01 | CASEMGMT ---
Addendum entered by Edelmira Barraza 06/14/20 16:18: FAITH did provide [employer] with MS3 main number and fax number in the event authorization is granted over the weekend. Addendum entered by Edelmira Barraza 06/14/20 15:14: FAITH completed convalescent 7000 in HENS. FAITH placed HENS, Green sheet and transport form on pt's chart in the event pre-cert is obtained. Addendum entered by Edelmira Barraza 06/14/20 14:46: FAITH updated that in October 2019 [facility] changed their policy and it is now a requirement for hospitals to submit pre-cert for pt's going to SNF to [facility]. FAITH provided pre-authorization form that needs completed. FAITH completed pre-authorization form and faxed form with clinicals to [facility]. FAITH wrote on fax coversheet and pre-authorization form that pt's precert is urgent request. Celeste CAVANAUGH had also called [facility] and informed staff that pt's request is urgent. FAITH placed a call to Bita at [facility] and updated her that this worker submitted for pre-cert. FAITH asked Bita about [facility] transporting pt to follow up appointment on 06/24, Bita states they have a meeting with [facility] next Wednesday and will get it figured it out. Bita states that if pre-cert is obtained, pt is able to admit to [facility] today or over the weekend (whenever pre-cert is obtained). FAITH updated pt and pt's . Plan: [facility] pending pre-cert. Original Note: Social Work Note FAITH received call from Yoselin at [facility] requesting call back [phone]. FAITH placed a call to Yoselin. Yoselin states that pt's health plan is stating that the hospital needs to get pre-authorization for pt to admit to SNF. FAITH explained that the hospital doesn't get pre-auth for SNF as the nursing homes have to do that and that is the same for every SNF. FAITH explained that the hospital just sends updates to insurance regarding pt's admission and procedures done while at [facility], not to get authorization for SNF. Yoselin states I get what you're saying but that is what the pt's health plan is telling us. FAITH placed a call to Bita at [facility] and updated her on what [employer] told this worker. Bita states that is not how it goes and the SNF is the one that gets authorization and she will be calling [facility] as well. FAITH also updated Bita that pt is getting central line placed and physicians will be calling [facility] regarding pt's follow up appointment at wound center. Edelmira Barraza VISUAL EFFECTS EDITOR, [employer]
[2020-06-14] MEDS: Mupirocin Ointment 22gm Tube 1 APPLIC TOPICAL (09:32)
[2020-06-14] MEDS: 0.9% Saline Lock 10 ML Syringe IV ×2 (09:33→14:58)
[2020-06-14] MEDS: Lactated Ringers 1,000 ML 75 ML IV (11:25)
--- NOTE | 2020-06-14 11:30 | NURSING ---
pt off unit for insertion of central line/ port.
[2020-06-14] MEDS: Bupiv/Epi 0.5% Mpf 30 ML Vial (12:03)
--- NOTE | 2020-06-14 12:50 | RAD_ITS ---
STUDY: X-RAY CHEST REASON FOR EXAM: Female, 65 years old. PORT PLACEMENT TECHNIQUE: Single AP portable view of the chest. COMPARISON: Comparison is made with prior examination dated June 12, 2020. FINDINGS: A right-sided Port-A-Cath has been placed. The tip is in the midportion of the superior vena cava. Status post right mastectomy and right axillary kris dissection. Surgical clips are seen in the right axillary region. Stable blunting of the left costophrenic angle. There has been improved aeration of both lung bases. Normal size heart. Normal mediastinum and yfn. Normal visualized pulmonary arteries. There is atherosclerotic calcification of the aortic arch with tortuosity. Normal visualized thoracic spine. Normal visualized ribs, clavicles, and shoulders. There is no demonstrated abnormality of the visualized soft tissue structures of the upper abdomen. RAD/CXR for Line Placement IMPRESSION: The tip of the right portacatheter is in the midportion of the superior vena cava. Mild residual increased markings at the lung bases with blunting of the left costophrenic angle. Electronically Signed: Shar Zamora, at 13:29 EDT , Service support ,
--- NOTE | 2020-06-14 13:00 | OP.PCM_ITS ---
Problem List (1) Pressure injury, stage 4, with gangrene Status: Acute Comment: right buttock (2) Debility Status: Chronic (3) Encounter for adjustment and management of vascular access device Status: Acute Report of Operation Date of Procedure: 06/14/20 Pre-Operative Diagnosis: Need for vascular access for long-term antibiotics Post-Operative Diagnosis: Same Surgery/Procedure Performed:: Ultrasound and fluoroscopy guided right chest port placement utilizing right IJ Description of Procedure: After obtaining informed consent patient was brought back to the operating room MAC anesthesia was induced and the left and right chest and neck were prepped in normal sterile fashion. Ultrasound was used to evaluate both IJs and the right IJ was selected. Original plan was to use the left IJ but the patient had a nonexistent left IJ and the IJ on the right was larger. Next, using a needle, the right IJ was accessed and a guidewire was passed on into the superior vena cava under fluoroscopy guidance. A small incision was made over the puncture site and the dilator introducer was placed over the guidewire. Next this was capped and the pocket was made for the port. 1% lidocaine with epinephrine was injected in the proposed port site. An incision was made with scalpel. Electrocautery was used to make a pocket under the skin and subcutaneous tissue. Hemostasis was obtained. Next, the catheter was tunneled up to the neck incision site and placed through the introducer. The peel-away introducer was removed and the position of the catheter was confirmed on fluoroscopy. Next, the catheter was trimmed and attached to the port with the locking device. Interrupted 2-0 Vicryl sutures were used to anchor the port to the chest wall and then the port was placed inside the pocket. The pocket was then flushed with saline and the port irrigated with saline. There was good blood return and the port flushed easily. The skin was closed with subcutaneous interrupted 3-0 Vicryl sutures. A single 3-0 Vicryl sutures placed under the skin at the neck incision site. Next the port was accessed using the included access needle and blood was drawn back and it was flushed with saline and then flushed with heparin. Steri-Strips were placed as well as op sites. Patient tolerated procedure well, was taken to PACU in stable condition. Chest x-ray will be obtained. Grafts/Implants Used: 8 [place] Power[employer] - Admit VTE Documentation VTE Mechan Device Prophylaxis: SCD's
[2020-06-14] MEDS: Metoprolol Tartrate 25 MG Tablet PO (14:49)
[2020-06-14] MEDS: Docusate Sodium 100 MG Capsule PO ×2 (14:49→21:34)
[2020-06-14] MEDS: Nystatin Powder 15gm Bottle 1 APPLIC TOPICAL ×2 (14:50→21:35)
[2020-06-14] MEDS: Oxybutynin 5 MG Tablet PO ×2 (14:50→21:34)
[2020-06-14] MEDS: Ensure Clear 120 ML Liquid PO ×2 (14:50→17:00)
[2020-06-14] MEDS: Nitrofurantoin Macrocrystals 100 MG Capsule PO (14:56)
[2020-06-14] MEDS: Baclofen 10 MG Tablet 20 MG PO (17:02)
[2020-06-14] MEDS: ACETIC ACID 1,000 ML IRRIG.SOLN 60 ML IR (21:32)
[2020-06-15 03:00] VITALS: BP 97/64; PULSE 90; RESP 16; TEMP 36.6; O2SAT 95
[2020-06-15] MEDS: Cholestyramine/Sucrose 4 GM/PACKET 1.3 GM PO (04:47)
[2020-06-15] MEDS: Baclofen 10 MG Tablet 20 MG PO (04:47)
--- NOTE | 2020-06-15 07:18 | PN.SURG_ITS ---
Patient Problems: Active and Suspected Problems Encounter for adjustment and management of vascular access device (Acute) Subjective: Right IJ port site working well, stool in colostomy bag, patient has no complaints - Physical Exam Vitals/I&O's: Vital Signs Temp Pulse Resp BP Pulse Ox 97.9 F 90 16 97/64 95 06/15/20 03:00 06/15/20 03:00 06/15/20 03:00 06/15/20 03:00 06/15/20 03:00 Oxygen Flow Rate (L/min) 2 Oxygen Delivery Method Room Air Weight: 176 lb Body Mass Index (BMI) 27.6 Intake and Output for Last 24 Hours 06/13/20 06/14/20 06/15/20 23:59 23:59 23:59 Intake Total 2549.00 / 3149.00 1918.54 / 1918.54 850 / 850 Output Total 4400 / 5150 3750 / 3750 725 / 725 Balance -1851.00 / -2001.00 -1831.46 / -1831.46 125 / 125 General: Alert, Oriented x3, Cooperative, No apparent distress Abdomen: Soft, Non-Distended, Tender - Near incisions/colostomy, colostomy pink with stool Skin: - - Right chest site healing well with Steri's at port site Microbiology Past 72 Hours 06/07/20 20:30 Suprapubic Tap Urine Culture - Final Shyanne parapsilosis Current Medications Acetaminophen (Tylenol Liquid) 650 mg PO Q6H PRN PRN PRN Reason: fever/Noncardiac pain(4-09/07) Acetic Acid (Acetic Acid) 60 ml IR QHS [facility] Last Admin: 06/14/20 21:32 Dose: 60 ml Documented by: Baclofen (Lioresal) 20 mg PO Q8H PRN PRN PRN Reason: MUSCLE SPASMS Last Admin: 06/15/20 04:47 Dose: 20 mg Documented by: Cholestyramine Resin (Questran 4gm Packet) 1.3 gm PO DAILY@0600 [facility] Last Admin: 06/15/20 04:47 Dose: 1.3 gm Documented by: Diazepam (Valium) 5 mg PO 4X/DAY PRN PRN PRN Reason: SPASMS Docusate Sodium (Colace) 100 mg PO BID [facility] Last Admin: 06/14/20 21:34 Dose: 100 mg Documented by: Enoxaparin Sodium (Lovenox) 40 mg SC DAILY [facility] Last Admin: 06/13/20 10:25 Dose: 40 mg Documented by: Sodium Chloride () 250 mls @ 15 mls/hr IV .[id number] PRN PRN Reason: Saline Flush Last Infusion: 06/14/20 11:31 Dose: Infused Documented by: Piperacillin Sod/Tazobactam (Sod 3.375 gm/ Sodium Chloride) 50 mls @ 12.5 mls/hr IV Q8 [facility] Last Admin: 06/15/20 04:48 Dose: 12.5 mls/hr Documented by: Fluconazole (Diflucan) 200 mg in 100 mls @ 100 mls/hr IV Q24 [facility] Last Infusion: 06/14/20 16:13 Dose: Infused Documented by: Lactobacillus Acidophilus (Acidophilus) 1 tablet PO 4X/DAY [facility] Last Admin: 06/14/20 21:34 Dose: 1 tablet Documented by: Letrozole (Femara) 2.5 mg PO DAILY [facility] Last Admin: 06/14/20 14:50 Dose: 2.5 mg Documented by: Metoprolol Tartrate (Lopressor (Beta David)) 25 mg PO BID [facility] Last Admin: 06/14/20 21:34 Dose: Not Given Documented by: Morphine Sulfate () 2 - 4 mg IV Q2H PRN PRN PRN Reason: Pain Score 4-10/10 Last Admin: 06/07/20 11:34 Dose: 2 mg Documented by: Morphine Sulfate () 2 - 4 mg IV Q2H PRN PRN PRN Reason: Pain Score 4-10/10 Mupirocin (Bactroban) 1 applic TOPICAL DAILY [facility]; Protocol Last Admin: 06/14/20 09:32 Dose: 1 applicatio Documented by: Nitrofurantoin Macrocrystals (Macrobid) 100 mg PO LUNCH [facility] Last Admin: 06/14/20 14:56 Dose: 100 mg Documented by: Nutritional Formula (Domingo - [place] Flavor) 1 packet PO 1200,1700 [facility] Last Admin: 06/14/20 17:00 Dose: 1 packet Documented by: Nutritional Formula (Lactose Free) (Ensure Clear) 120 ml PO TIDCM [facility] Last Admin: 06/14/20 17:00 Dose: 120 ml Documented by: Nystatin (Mycostatin Powder) 1 applic TOPICAL BID [facility]; Protocol Last Admin: 06/14/20 21:35 Dose: 1 applicatio Documented by: Oxybutynin Chloride (Ditropan) 5 mg PO BID [facility] Last Admin: 06/14/20 21:34 Dose: 5 mg Documented by: Oxycodone HCl (Oxyir) 10 mg PO Q4H PRN PRN PRN Reason: Pain Score 6-10/10 Promethazine HCl (Phenergan) 25 mg IV Q4H PRN PRN PRN Reason: NAUSEA/VOMITING Last Admin: 06/09/20 03:15 Dose: 25 mg Documented by: Sodium Chloride () 10 - 40 ml IV UD PRN PRN Reason: SALINE FLUSH Last Admin: 06/14/20 14:58 Dose: 10 ml Documented by: Medical Necessity - Tobacco Use Smoking Status: Never smoker Assessment/Plan All Active Problems Decubitus ulcer of coccygeal region, stage 2 (Acute) Encounter for adjustment and management of vascular access device (Acute) Pressure injury, stage 4, with gangrene (Acute) History of breast cancer (Acute) Leukocytosis (Acute) Sepsis (Acute) Patient reports working well and patient is having bowel function in the colostomy. Patient is waiting for pre-CERT to a prison for [place]. Mariza Solis M.D. Pager: [phone] [facility] [address] [place] [address], [address] [place] [id number] Office: [phone]
[2020-06-15 08:08] VITALS: BP 109/74; PULSE 93; RESP 18; TEMP 36.8; O2SAT 98
[2020-06-15] MEDS: Ensure Clear 120 ML Liquid PO ×2 (10:07→13:05)
[2020-06-15] MEDS: Mupirocin Ointment 22gm Tube 1 APPLIC TOPICAL (10:08)
[2020-06-15] MEDS: Oxybutynin 5 MG Tablet PO (10:08)
[2020-06-15] MEDS: Docusate Sodium 100 MG Capsule PO (10:08)
[2020-06-15 10:09] VITALS: BP 109/74; PULSE 93
[2020-06-15] MEDS: Metoprolol Tartrate 25 MG Tablet PO (10:09)
[2020-06-15] MEDS: Nystatin Powder 15gm Bottle 1 APPLIC TOPICAL (10:09)
--- NOTE | 2020-06-15 11:40 | CASEMGMT ---
SOCIAL WORK [facility] obtained. Auth #: [id number] for initial dates of 06/15/2020-06/24/2020. Charge nurse updated and informed Green Sheet on chart. Anticipate plan for discharge to [facility] today. Neal Glover, QUALITY CONTROL AUDITOR, BRAND MANAGER
[2020-06-15] MEDS: Nitrofurantoin Macrocrystals 100 MG Capsule PO (13:06)
[2020-06-15 14:30] VITALS: BP 94/56; PULSE 94; RESP 18; TEMP 36.9; O2SAT 96
--- NOTE | 2020-06-15 15:27 | PCM.TXEXTCAR ---
- Diet 06/14/20 12:45 Diet: Regular Diet Is pt able to select menu?: Yes - Routine Orders/Code Status Patino Catheter Size: 16 Change Patino Catheter: monthy and prn Routine Lab Work: CBC - weekly on Wednesday while on IV antibiotics. Fax results to [phone] and [phone]., - - CMP, ESR, CRP weekly on Wednesday while on IV antibiotics. Fax results to [phone] and [phone]. Code Status: Full Code - Wound(s) coccyx Wound Type: Surgical Incision right ischium/posterior thigh Wound Type: Surgical Incision Dressing Change: bactroban with dry dressing ABD Wound Type: Surgical Incision RT SUBCLAVIAN Wound Type: Surgical Incision right superior neck Wound Type: Surgical Incision - Therapies Weight Bearing: Non weight bearing - complete bed rest. Extremity Affected:: Bilateral Lower Physical Therapy: Eval and Treat - DO NOT BEND AT THE HIP. If you need to do range of motion at the knee, then turn patient on her side for knee range of motion so you can keet the hip straight. Occupational Therapy: Eval and Treat - Allergies/Procedures Done in Hospital Allergies/Adverse Reactions: Allergies bacitracin [From Neosporin ([id number])] Allergy (Verified 04/25/20 13:17) Rash neomycin [From Neosporin ([id number])] Allergy (Verified 04/25/20 13:17) Rash ondansetron [From Zofran] Allergy (Verified 04/30/20 13:09) palpitations polymyxin B [From Neosporin ([id number])] Allergy (Verified 04/25/20 13:17) Rash Sulfa (Sulfonamide Antibiotics) Allergy (Verified 04/25/20 13:17) Rash Procedures: - - 05/27/20 - 1. Excision right ischial pressure sore, Stage IV, with partial ostectomy for osteomyelitis. 2. Reconstruction with right hamstrings myocutaneous advancement flap. 3. Placement AmnioFill placental connective tissue powder (500 mg). 06/06/20 - Laparoscopic sigmoid colectomy with end colostomy. 06/14/20 - Ultrasound and fluoroscopy guided right chest port placement utilizing right IJ - Type of Care/Length of Stay Estimated LOS: More Than 30 Days Type of Care Needed: Skilled Rehab Potential: Fair Prognosis: Fair - Additional Orders/Day of Discharge Additional Orders: Continue Zosyn 3.375 grams IV q8 hours until July 08, 2020. H&P will serve as current which was dated: 05/26/20 Day of Discharge: 06/15/20 - Dietary and Speech Recommendations Dietitian Recommendations/Changes: Advance diet as tolerated to transitional. Continue Ensure Clear and Domingo as ordered. - Follow Up Care Primary Care Physician: Jovon Levy MD [Primary Care Provider] - Please Follow Up With: Jose E Dougherty MD When: wednesday06/24/[facility]. call [phone] for appt.
--- NOTE | 2020-06-15 15:41 | DS.PCM_ITS ---
Discharge Date and Diagnosis Date of Admission: 05/26/20 Date of Discharge: 06/15/20 - Primary Discharge Diagnosis Suspected Problems: Right ischial pressure sore, Stage IV. Acute and chronic osteomyelitis. Consolidation right lung, probable aspiration. Postop ileus. Hypopotassiumemia. Dysmotility of colon. - Secondary Discharge Diagnosis Chronic Problems: Candidal skin infection Debility Multiple sclerosis Psoriasis Bilateral lower extremity edema Hospital Course and Treatment Imaging Results: Diagnostic Data Chest X-Ray 06/07/20 17:35 IMPRESSION: No acute cardiopulmonary disease or major interval change. Electronically Signed: Trevor Palmer DO at 21:44 EDT Tel [phone], Service support , KUB X-Ray 06/08/20 07:53 IMPRESSION: Findings most suggestive of ileus. Electronically Signed: Trevor Palmer DO at 13:30 EDT Tel [phone], Service support , KUB X-Ray 06/08/20 19:35 IMPRESSION: Nasogastric tube with the tip in the region of the stomach. Electronically Signed: Ford Burnette MD at 21:07 EDT Tel , Service support , KUB X-Ray 06/09/20 06:30 IMPRESSION: Persistent ileus, no interval change since the previous study Electronically Signed: Everardo Bello MD at 8:23 EDT , Service support , Chest X-Ray 06/09/20 13:51 IMPRESSION: 1. Developing right lower lobe airspace disease. Stable left lower lobe infiltrate or atelectasis. 2. Enteric tube. Recommend advancing 5-centimeters. Electronically Signed: Jason Navarro MD ([place]) at 14:55 EDT , Service support , Chest X-Ray 06/12/20 08:00 IMPRESSION: Persistent bibasilar infiltrates more prominent on the left side. There has been improvement as compared to prior study. Electronically Signed: Shar Zamora, at 12:41 EDT , Service support , Chest X-Ray 06/14/20 12:50 IMPRESSION: The tip of the right portacatheter is in the midportion of the superior vena cava. Mild residual increased markings at the lung bases with blunting of the left costophrenic angle. Electronically Signed: Shar Zamora, at 13:29 EDT , Service support , CONSULTATIONS 05/28/20 06:43 Consult: Onc/Wound/protocol officer Routine General Surgery - Dr. Coyne. Operations: - - 05/27/20 - 1. Excision right ischial pressure sore, Stage IV, with partial ostectomy for osteomyelitis. 2. Reconstruction with right hamstrings myocutaneous advancement flap. 3. Placement AmnioFill placental connective tissue powder (500 mg). 06/06/20 - Laparoscopic sigmoid colectomy with end colostomy. 06/14/20 - Ultrasound and fluoroscopy guided right chest port placement utilizing right IJ Procedures: None Summary of Care Provided: The patient is a 65 year old F with a history of MS presents with a worsening right ischial pressure sore with increasing undermining. She has completed her antibiotics (Cefdinir and Flagyl) for operative cultures from 11/03/19 that showed Coag negative Staph, Clostridium group, Prevotella oralis, and Bacteroides thetaiotamicron in the soft tissue and Staphylococcus capitis, Bacteroides thetaiotamicron, and Clostridium group in the bone. Recent wound culture from 12/2019 was negative. She underwent surgery on 04/30/20 where she underwent excision right ischial pressure sore, Stage IV, with partial ostectomy for osteomyelitis. Operative culture was negative. She was treated with Augmentin for previous culture showing Anaerobes. Pathology was negative for osteomyelitis. She was admitted on 05/26/20 to begin IV antibiotics with Unasyn in preparation for wound closure with a myocutaneous flap the following day. On 05/27/20, the patient went to surgery where she underwent excision right ischial pressure sore, Stage IV, with partial ostectomy for osteomyelitis and reconstruction with right hamstrings myocutaneous advancement flap and placement AmnioFill placental connective tissue powder (500 mg). She tolerated the procedure well. During her hospital stay, her incision remained intact and her flap was healing satisfactory. Operative cultures showed Anaerobic cocci and Corynebacterium striatum and Unasyn was continued. Pathology showed acute and chronic osteomyelitis. She has a history of dysmotility of her colon and it was discovered that the ECF does not do digital stimulation. Her does at home but is not allowed into the ECF because of COVID-19. Therefore General Surgery was consulted for a diverting colostomy. On 06/06/20 the patient went to surgery where she underwent laparoscopic sigmoid colectomy with end colostomy. Postoperatively she developed an ileus that necessitated an NG tube. The ileus resolved and the NG was pulled. She also had a fever of 101.3. Initial CXR was normal. Urinalysis showed Shyanne parapsilosis. She is normally on Diflucan weekly and it was changed to daily while she was hospitalized. While she had the NG tube, she had some emesis and it was thought she may have aspirated. Subsequent CXR showed consolidation in the right lung. The Unasyn was changed to Zosyn. She remained afebrile during the remainder of her hospital stay. She did have some Potassium issues as low as 2.5. She required additional Potassium supplementation and it improved to 3.9. Her Prealbumin was 16.2. Encouraged nutritional supplementation with protein to help the healing process. On 06/12/20, her drains were removed. Because of the need for IV antibiotics for 6 weeks, a PICC line was attempted to be placed and it would not advance secondary to her anatomy and secondary to scarring. General Surgery then performed a port placement on 06/14/20. On 06/15/20, we finally obtained a precert for the ECF and she was discharged in satisfactory condition. She will continue Zosyn until 07/08/20. Followup at [facility] on 06/24/20. She needs to travel on a stretcher in an ambulance. Subjective: Postop #19 Patient is resting comfortably. Had port placement yesterday. - Physical Exam Vitals/I&O's: Vital Signs Temp Pulse Resp BP Pulse Ox 98.5 F 94 18 94/56 L 96 06/15/20 14:30 06/15/20 14:30 06/15/20 14:30 06/15/20 14:30 06/15/20 14:30 Oxygen Flow Rate (L/min) 2 Oxygen Delivery Method Room Air Weight: 176 lb Body Mass Index (BMI) 27.6 Intake and Output for Last 24 Hours 06/13/20 06/14/20 06/15/20 23:59 23:59 23:59 Intake Total 2549.00 / 3149.00 1918.54 / 1918.54 1880 / 1880 Output Total 4400 / 5150 3750 / 3750 1725 / 1725 Balance -1851.00 / -2001.00 -1831.46 / -1831.46 155 / 155 General: Alert, Oriented x3 HEENT: PERRLA, EOMI Oral: Moist Mucosa Neck: Supple Abdomen: Soft, Non-Distended Skin: Incision - right ischial incision dry and intact. Flap is healing satisfactory. No clinical evidence of infection or hematoma. Neurological: Cranial nerves II-XII grossly intact Psych/Mental Status: Normal Affect, Appropriate Microbiology Past 72 Hours 06/07/20 20:30 Suprapubic Tap Urine Culture - Final Shyanne parapsilosis Current Medications Acetaminophen (Tylenol Liquid) 650 mg PO Q6H PRN PRN PRN Reason: fever/Noncardiac pain(-09/07) Acetic Acid (Acetic Acid) 60 ml IR QHS [facility] Last Admin: 06/14/20 21:32 Dose: 60 ml Documented by: Baclofen (Lioresal) 20 mg PO Q8H PRN PRN PRN Reason: MUSCLE SPASMS Last Admin: 06/15/20 04:47 Dose: 20 mg Documented by: Cholestyramine Resin (Questran 4gm Packet) 1.3 gm PO DAILY@0600 [facility] Last Admin: 06/15/20 04:47 Dose: 1.3 gm Documented by: Diazepam (Valium) 5 mg PO 4X/DAY PRN PRN PRN Reason: SPASMS Docusate Sodium (Colace) 100 mg PO BID [facility] Last Admin: 06/15/20 10:08 Dose: 100 mg Documented by: Enoxaparin Sodium (Lovenox) 40 mg SC DAILY [facility] Last Admin: 06/13/20 10:25 Dose: 40 mg Documented by: Sodium Chloride () 250 mls @ 15 mls/hr IV .[id number] PRN PRN Reason: Saline Flush Last Infusion: 06/14/20 11:31 Dose: Infused Documented by: Piperacillin Sod/Tazobactam (Sod 3.375 gm/ Sodium Chloride) 50 mls @ 12.5 mls/hr IV Q8 [facility] Last Admin: 06/15/20 13:58 Dose: 12.5 mls/hr Documented by: Fluconazole (Diflucan) 200 mg in 100 mls @ 100 mls/hr IV Q24 [facility] Last Infusion: 06/15/20 11:15 Dose: Infused Documented by: Lactobacillus Acidophilus (Acidophilus) 1 tablet PO 4X/DAY [facility] Last Admin: 06/15/20 13:06 Dose: 1 tablet Documented by: Letrozole (Femara) 2.5 mg PO DAILY [facility] Last Admin: 06/15/20 10:08 Dose: 2.5 mg Documented by: Metoprolol Tartrate (Lopressor (Beta David)) 25 mg PO BID [facility] Last Admin: 06/15/20 10:09 Dose: 25 mg Documented by: Morphine Sulfate () 2 - 4 mg IV Q2H PRN PRN PRN Reason: Pain Score 4-10/10 Last Admin: 06/07/20 11:34 Dose: 2 mg Documented by: Morphine Sulfate () 2 - 4 mg IV Q2H PRN PRN PRN Reason: Pain Score 4-10/10 Mupirocin (Bactroban) 1 applic TOPICAL DAILY [facility]; Protocol Last Admin: 06/15/20 10:08 Dose: 1 applicatio Documented by: Nitrofurantoin Macrocrystals (Macrobid) 100 mg PO LUNCH [facility] Last Admin: 06/15/20 13:06 Dose: 100 mg Documented by: Nutritional Formula (Domingo - Gilmer Flavor) 1 packet PO 1200,1700 [facility] Last Admin: 06/15/20 13:06 Dose: 1 packet Documented by: Nutritional Formula (Lactose Free) (Ensure Clear) 120 ml PO TIDCM [facility] Last Admin: 06/15/20 13:05 Dose: 120 ml Documented by: Nystatin (Mycostatin Powder) 1 applic TOPICAL BID [facility]; Protocol Last Admin: 06/15/20 10:09 Dose: 1 applicatio Documented by: Oxybutynin Chloride (Ditropan) 5 mg PO BID [facility] Last Admin: 06/15/20 10:08 Dose: 5 mg Documented by: Oxycodone HCl (Oxyir) 10 mg PO Q4H PRN PRN PRN Reason: Pain Score 6-10/10 Promethazine HCl (Phenergan) 25 mg IV Q4H PRN PRN PRN Reason: NAUSEA/VOMITING Last Admin: 06/09/20 03:15 Dose: 25 mg Documented by: Sodium Chloride () 10 - 40 ml IV UD PRN PRN Reason: SALINE FLUSH Last Admin: 06/14/20 14:58 Dose: 10 ml Documented by: Discharge Diet: No Restrictions, - - encourage nutritional supplementation with protein to help the healing process. Weight Bearing Status: No weight bearing - complete bedrest till 07/08/20. Call your doctor if your incision/area has: Continuous Slow Oozing, Sudden Increased Bleeding, Increased Pain/ Swelling, Increased Redness, Foul Smelling Discharge, Swelling at the incision site Call your doctor if you observe: Fever of 101 or Higher, Coldness, Increased Pain, Shortness of breath, Chest pain, Calf discomfort, Uncontrolled pain Suture Line Care: - - antibiotic ointment to suture line daily followed by gauze. Change Dressing in (Days):: 1 Cleanse incision/area with: Soap & Water, - - may shower after bedrest is lifted. Catheter: Patino to leg bag Home Medications: Medications to take at Discharge Ascorbic Acid [Vitamin C] 1 tab PO BID 11/03/19 Baclofen 1 - 2 tab PO Q8H PRN PRN 11/03/19 Cholecalciferol (VIT D3) [Vitamin D3] 1,000 unit PO DINNER 11/03/19 Cholestyramine (with Sugar) [Cholestyramine Powder] 1 packet PO DAILY 11/03/19 Cranberry Fruit Extract [Cranberry] 200 mg PO DINNER 11/03/19 Letrozole 1 tab PO DAILY 11/03/19 Oxybutynin [Ditropan] 2 tab PO BID 11/03/19 Vitamin E (Dl,Tocopheryl Acet) [Vitamin E] 400 unit PO DINNER 11/03/19 Acetaminophen [Tylenol Tablet] 650 mg PO Q6H PRN PRN tab 11/08/19 nystatin 100,000 unit/gram topical powder 1 applic TOPICAL TID 15 Days #60 g 03/18/20 Aboric Acid 600 mg RECTAL DAILY 04/25/20 Apixaban [Eliquis] 5 mg PO BID 04/25/20 Nitrofurantoin Macrocrystal [Macrodantin] 50 mg PO DINNER 04/25/20 Pro Stat 5 ml PO DINNER 04/25/20 L. Rhamnosus GG/Inulin [Culturelle Digest 10B Cell Cap] 2 ea PO BID 05/26/20 Letrozole [Femara] 2.5 mg PO DAILY 05/26/20 Magnesium Hydroxide [Milk Of Magnesia] 30 ml PO PRN PRN 05/26/20 Metoprolol Tartrate [Lopressor (beta david)] 25 mg PO BID 05/26/20 Nystatin 1 applic TOPICAL BID 05/26/20 Acetic Acid 60 ml IR QHS irrig.soln 06/15/20 Docusate Sodium [Colace] 100 mg PO BID cap 06/15/20 Ensure Clear 120 ml PO TIDCM liquid 06/15/20 Fluconazole 200 mg PO QWEEK #4 tab 06/15/20 Lactobacillus Acidophilus [Acidophilus] 1 tab PO 4X/DAY tab 06/15/20 Metoprolol Tartrate [Lopressor (beta david)] 25 mg PO BID tab 06/15/20 Mupirocin [Bactroban] 1 applic TOPICAL DAILY tube 06/15/20 Nutritional Supplement [Domingo - ORANGE FLAVOR] 1 packet PO 1200,1700 packet 06/15/20 Nystatin Powder [Mycostatin Powder] 1 applic TOPICAL BID bottle 06/15/20 Oxycodone [Oxyir] 10 mg PO Q4H PRN PRN 5 Days #30 tab 06/15/20 Piperacil/Tazobactam [Zosyn] 3.375 gm IV Q8 24 Days #72 vial 06/15/20 Following Prescrptions Were Given to Patient: Fluconazole 200 mg PO QWEEK #4 tab Prescription Printed Oxycodone [Oxyir] 10 mg PO Q4H PRN PRN 5 Days #30 tab PRN Reason: Pain Score 6-10/10 Prescription Printed Piperacil/Tazobactam [Zosyn] 3.375 gm IV Q8 24 Days #72 vial Prescription Printed Primary Care Physician: Jovon Levy MD [Primary Care Provider] - Please Follow Up With: Jose E Dougherty MD When: wednesday06/24/20 at [facility]. call [phone] for appt. Additional Instructions: Weekly labs to be drawn (CBC, CMP, ESR, CRP). Please fax results to [phone] and [phone]. Disposition: [facility] facility Minutes spent on discharge:: 35 Patient Condition:: Stable Medical Necessity - Tobacco Use Smoking Status: Never smoker Meaningful Use Info Meaningful Use Diagnoses (Choose all that apply): None applicable
--- NOTE | 2020-06-15 16:20 | CASEMGMT ---
SOCIAL WORK Received call from nursing regarding discharge to [facility]. Nursing attempted to call report and facility stating did not know patient was coming. Call to [facility], spoke with Wendy who provided this worker with contact number for Bita in Admissions. Call to Bita with [facility] Admissions. Bita updated on insurance authorization- Auth #: [id number] with initial dates of 06/15-06/24. [facility]-Viridiana . Bita states will update facility and [facility] nurse can call report. Nursing updated on the above. Neal Glover, [employer]QUOR MAKER, COIL PLACER
--- NOTE | 2020-06-15 16:42 | NURSING ---
REPORT CALLED TO HOP @ [facility]
[2020-06-15 18:36] VITALS: BP 94/56; PULSE 94; RESP 18; TEMP 36.9; O2SAT 96
== END 2020-06-15 18:40 | disposition skilled nursing facility (03) | DRG 579 ==
PROVIDERS: Anesthesiology; Nurse Practitioner Family; Surgery; Admitting Provider Surgery; PCP Family Medicine; Visit Provider Surgery
PROC: 0QB20ZZ Excision of Right Pelvic Bone, Open Approach (ICD-10-PCS; principal; 2020-05-27 09:30)
PROC: 0D1E4Z4 Bypass Large Intestine to Cutaneous, Percutaneous Endoscopic Approach (ICD-10-PCS; CPT 44188; principal; 2020-06-06 08:55)
PROC: 02HV33Z Insertion of Infusion Device into Superior Vena Cava, Percutaneous Approach (ICD-10-PCS; principal; 2020-06-14 11:30)
DX: L89.314 Pressure ulcer of right buttock, stage 4 (principal); J69.0 Pneumonitis due to inhalation of food and vomit; M86.651 Other chronic osteomyelitis, right thigh; K91.89 Other postprocedural complications and disorders of digestive system; K91.30 Postprocedural intestinal obstruction, unspecified as to partial versus complete; K59.39 Other megacolon; M86.18 Other acute osteomyelitis, other site; B96.89 Other specified bacterial agents as the cause of diseases classified elsewhere; K59.8 Other specified functional intestinal disorders; B37.2 Candidiasis of skin and nail; R53.81 Other malaise; G35 Multiple sclerosis; L40.9 Psoriasis, unspecified; E87.6 Hypokalemia; R60.0 Localized edema; R00.0 Tachycardia, unspecified; R50.82 Postprocedural fever; Z79.2 Long term (current) use of antibiotics; Z79.01 Long term (current) use of anticoagulants; Z79.899 Other long term (current) drug therapy
CPT/HCPCS: 36415; 71045; 74018; 77001; 80048; 80053; 81001; 84134; 85025; 85027; 85610; 85652; 85730; 86140; 87070; 87075; 87077; 87086; 87102; 87106; 87176; 87205; 87206; 87635; 88304; 88305; 88309; 88311; 93005; 94640; 97110; 97162; 97166; 97530; 97535; 97803; G2023; J7030; J7040; J7050; J7120; A4216; C1760; C1788; J0295; J2405; U0003

== ENCOUNTER 2020-06-24 11:00 | Outpatient (RCR) | payer MEDICARE, SELFPAY ==
[2020-05-29 00:23] VITALS: BP 124/98; PULSE 89; RESP 18; TEMP 36.9
[2020-06-24 11:13] VITALS: BP 104/65; PULSE 96; RESP 18; TEMP 36.1; BMI 27.6
--- NOTE | 2020-06-24 11:23 | WC ---
sutures intact to post op site
--- NOTE | 2020-06-24 13:18 | PN.PCM_ITS ---
(1) Right ischial pressure sore, stage 4 Status: Chronic Code(s): L89.314 - Pressure ulcer of right buttock, stage 4 (2) Chronic osteomyelitis of right pelvic region Status: Chronic Code(s): M86.651 - Other chronic osteomyelitis, right thigh (3) Debility Status: Chronic Code(s): R53.81 - Other malaise (4) Multiple sclerosis Status: Chronic Code(s): G35 - Multiple sclerosis (5) Psoriasis Status: Chronic Code(s): L40.9 - Psoriasis, unspecified Type of Wound Date of Service: 06/24/20 Chief Complaint: Right ischial pressure sore, Stage IV. History of Wound: Surgery 05/27/20 - 1. Excision right ischial pressure sore, Stage IV, with partial ostectomy for osteomyelitis. 2. Reconstruction with right hamstrings myocutaneous advancement flap. 3. Placement AmnioFill placental connective tissue powder (500 mg). Pathology of bone was positive for acute and chronic osteiomyelitis. Operative soft tissue cultures positive for Corynebacterium striatum and Anaerobic cocci. Operative bone cultures positive for Anaerobic cocci. Treatment with Zosyn until 07/08/20. On 06/06/20 she had a Laparoscopic sigmoid colectomy with end colostomy placed by Dr. Coyne. On 06/14/20 - Ultrasound and fluoroscopy guided right chest port placement utilizing right IJ. Wound care- Remaining sutures not removed today because of moisture along the incision line of the flap. Will place silver along the incision line where there is moisture and cover with dry gauze. Will obtain a follow up chest xray due to her aspiration pneumonia that she had while hospitalized. Surgery 04/30/20 - Excision right ischial pressure sore, Stage IV, with partial ostectomy for osteomyelitis. Surgery 11/03/19 - Excision necrotic right ischial pressure sore, Stage IV, with partial ostectomy for osteomyelitis. Wound care - Wound VAC at 150 mmHg. Operative cultures from 04/30/20 were negative for bacterial growth for both the tissue and bone. Operative culture - Coag negative Staph, Clostridium group, Prevotella oralis, and Bacteroides thetaiotamicron in the soft tissue and Staphylococcus capitis, Bacteroides thetaiotamicron, and Clostridium group in the bone. She was discharged on Ceftriaxone and Flagyl. The Ceftriaxone was changed to Cefdinir because she developed a clot in the PICC line and it was pulled. She has finished the antibiotics. With the recent periwound fungal rash, she was started on Diflucan which has improved. Pathology - negative for osteomyelitis. CT Pelvis from 11/03/19 showed There is a 2.6 cm x 3.5 cm soft tissue defect in the medial proximal right. buttock with the surrounding soft tissue swelling and edema. The inflammatory changes extend into the right inferior pubic ramus with the findings suggestive of a possible bony destruction secondary to osteomyelitis. Dense calcifications are seen in the soft tissues overlying both buttocks and the left side of the sacrum. There is also evidence of a 3.2 cm x 4.1 cm soft tissue density involving the tip of the sacrum and coccyx. There is also evidence of multiple calcific densities and ossifications overlying the right greater trochanter. There is also evidence of soft tissue swelling at that site. Prealbumin from 05/26/20 was 16.2. Encourage nutritional supplementation with protein to help the healing process. Today she denies fever. Her appetite is ok. Progress of Wound: Surgery on 05/27/20. Flap is stable. - Physical Exam Vital Signs Temp Pulse Resp BP 96.9 F L 96 18 104/65 06/24/20 11:13 06/24/20 11:13 06/24/20 11:13 06/24/20 11:13 General: Alert, Oriented x3, Cooperative HEENT: Atraumatic Oral: Moist Mucosa Lungs: Normal air movement Cardiovascular: Regular rate Extremities: Capillary Refill Less than 3 Seconds Skin: Incision - Right posterior thigh incision with moisture along the one edge of sutures. Small amount of drainage present . No hematoma or seroma palpated. Wound Measurements and Assessment WC - Nurse 1 - General Ulcer Measurement Start: 06/24/20 11:00 Freq: Status: Active Protocol: Activity Type Activity Date Activity User E-Sign Co-Sign Detail Recorded Client Recorded Date Recorded By Document 06/24/20 11:13 [facility] [id number] 06/24/20 11:23 [facility] 06/24/20 11:13 Wound Center Nurse 1 [Ulcer Assessment] #1- R GLUTEAL FOLD -Combined with other wound No -Current Size (cm) - Length 0.1 -Current Size (cm) - Width 0.1 -Current Size (cm) - Depth 0.1 -Total Square Cm 0.01 -Photo Taken No -Epithelialization None Present -Tunneling No -Undermining/Tunneling No -Circular Undermining No -Slough/Fibrin Yes -Necrosis Amt Small (1-33%) -Necrotic Tissue Type Adherent Slough -Texture (Janene-wound Skin Appearance) Assessed, Scarring -Moisture (Janene-wound Skin Appearance Assessed ) -Color (Janene-wound Skin Appearance) Assessed -Temperature (Janene-wound Skin No Abnormality Appearance) (Pt Warm) -Tenderness on Palpation (Janene-wound No Skin Appearance) -Ulcer Cleansing soapy water -Foul Odor after Cleansing No -Anesthetic Used 4% Lidocaine Solution - Nurse 2 - General Ulcer CM Notes Start: 06/24/20 11:00 Freq: Status: Active Protocol: Activity Type Activity Date Activity User E-Sign Co-Sign Detail Recorded Client Recorded Date Recorded By Document 06/24/20 12:17 [id number] 06/24/20 12:18 06/24/20 12:17 Wound Center Nurse 2 [Procedure/Treatment] -Correct Patient No -Correct Side, Site, Position No -Correct Procedure No -Procedure Performed No -Wound/Ulcer Outcome Healed- Surgical Closure [See Physician Procedure note for Specifics] Pain Scale: 0-10 Numeric [Pain] -Is Patient Pain Free? Yes Musculoskeletal: No Tenderness to Palpation of Joints or Extremities Neurological: Cranial nerves II-XII grossly intact Psych/Mental Status: Normal Affect, Appropriate Debridement Note Post-Debridement Measurements/Treatment - Nurse 2 - General Ulcer CM Notes Start: 06/24/20 11:00 Freq: Status: Active Protocol: Activity Type Activity Date Activity User E-Sign Co-Sign Detail Recorded Client Recorded Date Recorded By Document 06/24/20 12:17 [id number] 06/24/20 12:18 06/24/20 12:17 Wound Center Nurse 2 #1- R GLUTEAL FOLD -Correct Patient No -Correct Side, Site, Position No -Correct Procedure No -Procedure Performed No -Wound/Ulcer Outcome Healed- Surgical Closure Pain Scale: 0-10 Numeric Is Patient Pain Free? Yes No debridement was completed today Assessment/Plan Assessment: 1. Necrotic right ischial pressure sore, Stage IV. 2. Osteomyelitis. 3. Multiple sclerosis. 4. s/p excision necrotic right ischial pressure sore, Stage IV, with partial ostectomy for osteomyelitis. Plan: Surgery 05/27/20 - 1. Excision right ischial pressure sore, Stage IV, with partial ostectomy for osteomyelitis. 2. Reconstruction with right hamstrings myocutaneous advancement flap. 3. Placement AmnioFill placental connective tissue powder (500 mg). Pathology of bone was positive for acute and chronic osteiomyelitis. Operative soft tissue cultures positive for Corynebacterium striatum and Anaerobic cocci. Operative bone cultures positive for Anaerobic cocci. Treatment with Zosyn until 07/08/20. On 06/06/20 she had a Laparoscopic sigmoid colectomy with end colostomy placed by Dr. Coyne. On 06/14/20 - Ultrasound and fluoroscopy guided right chest port placement utilizing right IJ. Wound care- Remaining sutures not removed today because of moisture along the incision line of the flap. Will place silver along the incision line where there is moisture and cover with dry gauze. Will obtain a follow up chest xray due to her aspiration pneumonia that she had while hospitalized. Surgery on 04/30/20 for Excision right ischial pressure sore, Stage IV, with partial o stectomy for osteomyelitis. Surgical wound cultures were negative for bacterial growth. Continue Augmentin. She will be on bed rest for 6 weeks. Prealbumin from 05/26/20 was 16.2. Encourage nutritional supplementation with protein to help the healing process. Follow up in one week. She should be transported from the [facility] via cart. [id number]: [id number] Global Visit
== END 2020-06-28 23:59 ==
LOC: WC 11:00
PROVIDERS: Family Provider Family Medicine; PCP Family Medicine; Referring Provider Nurse Practitioner Family; Visit Provider Nurse Practitioner Family
DX: L89.314 Pressure ulcer of right buttock, stage 4 (principal); M86.651 Other chronic osteomyelitis, right thigh; G35 Multiple sclerosis; L40.9 Psoriasis, unspecified
CPT/HCPCS: 99213; G0463

== ENCOUNTER 2020-07-29 13:15 | Outpatient (RCR) | payer MEDICARE, SELFPAY ==
[2020-06-29 00:24] VITALS: BP 104/65; PULSE 96; RESP 18; TEMP 36.1
[2020-07-01 13:17] VITALS: BP 159/73; PULSE 89; RESP 20; TEMP 36.5; BMI 27.6
--- NOTE | 2020-07-01 15:33 | PCM.WC.PN ---
(1) Pressure injury, stage 4, with gangrene Status: Acute Current Visit: Yes Code(s): I96 - Gangrene, not elsewhere classified; L89.94 - Pressure ulcer of unspecified site, stage 4 Comment: right buttock (2) Chronic osteomyelitis of right pelvic region Status: Chronic Current Visit: Yes Code(s): M86.651 - Other chronic osteomyelitis, right thigh (3) Debility Status: Chronic Current Visit: Yes Code(s): R53.81 - Other malaise (4) Multiple sclerosis Status: Chronic Current Visit: Yes Code(s): G35 - Multiple sclerosis (5) Psoriasis Status: Chronic Current Visit: Yes Code(s): L40.9 - Psoriasis, unspecified Type of Wound Date of Service: 07/01/20 Chief Complaint: Right ischial pressure sore, Stage IV. History of Wound: Surgery 05/27/20 - 1. Excision right ischial pressure sore, Stage IV, with partial ostectomy for osteomyelitis. 2. Reconstruction with right hamstrings myocutaneous advancement flap. 3. Placement AmnioFill placental connective tissue powder (500 mg). Pathology of bone was positive for acute and chronic osteiomyelitis. Operative soft tissue cultures positive for Corynebacterium striatum and Anaerobic cocci. Operative bone cultures positive for Anaerobic cocci. Treatment with Zosyn until 07/08/20. On 06/06/20 she had a Laparoscopic sigmoid colectomy with end colostomy placed by Dr. Coyne. On 06/14/20 - Ultrasound and fluoroscopy guided right chest port placement utilizing right IJ. Wound care- Remaining sutures removed, there is a small separation on left proximal posterior thigh. Will place silver into the small opening and along the incision line where there is moisture and cover with dry gauze. Obtained a follow up chest xray due to her aspiration pneumonia that she had while hospitalized. It showed mild residual increased markings in the lung bases. Surgery 04/30/20 - Excision right ischial pressure sore, Stage IV, with partial ostectomy for osteomyelitis. Surgery 11/03/19 - Excision necrotic right ischial pressure sore, Stage IV, with partial ostectomy for osteomyelitis. Wound care - Wound VAC at 150 mmHg. Operative cultures from 04/30/20 were negative for bacterial growth for both the tissue and bone. Operative culture - Coag negative Staph, Clostridium group, Prevotella oralis, and Bacteroides thetaiotamicron in the soft tissue and Staphylococcus capitis, Bacteroides thetaiotamicron, and Clostridium group in the bone. She was discharged on Ceftriaxone and Flagyl. The Ceftriaxone was changed to Cefdinir because she developed a clot in the PICC line and it was pulled. She has finished the antibiotics. With the recent periwound fungal rash, she was started on Diflucan which has improved. Pathology - negative for osteomyelitis. CT Pelvis from 11/03/19 showed There is a 2.6 cm x 3.5 cm soft tissue defect in the medial proximal right. buttock with the surrounding soft tissue swelling and edema. The inflammatory changes extend into the right inferior pubic ramus with the findings suggestive of a possible bony destruction secondary to osteomyelitis. Dense calcifications are seen in the soft tissues overlying both buttocks and the left side of the sacrum. There is also evidence of a 3.2 cm x 4.1 cm soft tissue density involving the tip of the sacrum and coccyx. There is also evidence of multiple calcific densities and ossifications overlying the right greater trochanter. There is also evidence of soft tissue swelling at that site. Prealbumin from 05/26/20 was 16.2. Encourage nutritional supplementation with protein to help the healing process. Today she denies fever. Her appetite is ok. Progress of Wound: Surgery on 05/27/20. Flap is stable. - Physical Exam Vital Signs Temp Pulse Resp BP 97.7 F L 89 20 H 159/73 H 07/01/20 13:17 07/01/20 13:17 07/01/20 13:17 07/01/20 13:17 General: Alert, Oriented x3, Cooperative HEENT: Atraumatic Oral: Moist Mucosa Lungs: Normal air movement Cardiovascular: Regular rate Extremities: Capillary Refill Less than 3 Seconds, Edema Skin: Ulcer/ Wound - Remaining sutures removed. There is a small separation on the left proximal medial thigh that has some depth. Wound Measurements and Assessment WC - Nurse 1 - General Ulcer Measurement Start: 07/01/20 13:17 Freq: Status: Active Protocol: Activity Type Activity Date Activity User E-Sign Co-Sign Detail Recorded Client Recorded Date Recorded By Document 07/01/20 13:17 DL [id number] 07/01/20 13:26 DL 07/01/20 13:17 Wound Center Nurse 1 [Ulcer Assessment] #1- R GLUTEAL FOLD -Current Size (cm) - Length 7.3 -Current Size (cm) - Width 0.5 -Current Size (cm) - Depth 0.2 -Total Square Cm 3.65 -Photo Taken No -Exudate Amt Small -Exudate Type Serosanguineous -Wound Margin Distinct, Outline Attached -Granulation Amt Small (1-33%) -Granulation Quality [place] -Necrosis Amt Medium (34-66%) -Necrotic Tissue Type Adherent Slough -Structure Exposed N/A -Texture (Janene-wound Skin Appearance) Scarring -Moisture (Janene-wound Skin Appearance No Abnormality ) -Color (Janene-wound Skin Appearance) Rubor -Temperature (Janene-wound Skin No Abnormality Appearance) (Pt Warm) -Tenderness on Palpation (Janene-wound No Skin Appearance) -Ulcer Cleansing Wound Cleanser -Foul Odor after Cleansing No -Anesthetic Used 4% Lidocaine Solution WC - Nurse 2 - General Ulcer CM Notes Start: 07/01/20 13:17 Freq: Status: Active Protocol: Activity Type Activity Date Activity User E-Sign Co-Sign Detail Recorded Client Recorded Date Recorded By Document 07/01/20 14:06 KIRK [id number] 07/01/20 14:07 KIRK 07/01/20 14:06 Wound Center Nurse 2 [Procedure/Treatment] -Time 14:10 -Correct Patient Yes -Correct Side, Site, Position Yes -Correct Procedure Yes -Procedure Performed Yes -Type of Procedure Debridement -Clinical Debridement Selective -Post Debridement Size (cm) - Length 7.3 -Post Debridement Size (cm) - Width 2.0 -Post Debridement Size (cm) - Depth 1.0 -Total Square (cm) 14.60 -Wound/Ulcer Outcome Not Healed -Ulcer Cleansing Rinsed/ Irrigated with Saline -Foul Odor after Cleansing No -Bioengineered Tissue No -Bleeding Controlled with Pressure -Offloading No -Treatment Response Procedure Tolerated Well [See Physician Procedure note for Specifics] Pain Scale: 0-10 Numeric [Pain] -Is Patient Pain Free? Yes Musculoskeletal: No Tenderness to Palpation of Joints or Extremities Neurological: Cranial nerves II-XII grossly intact Psych/Mental Status: Normal Affect, Appropriate Debridement Note Post-Debridement Measurements/Treatment WC - Nurse 2 - General Ulcer CM Notes Start: 07/01/20 13:17 Freq: Status: Active Protocol: Activity Type Activity Date Activity User E-Sign Co-Sign Detail Recorded Client Recorded Date Recorded By Document 07/01/20 14:06 KIRK [id number] 07/01/20 14:07 KIRK 07/01/20 14:06 Wound Center Nurse 2 #1- R GLUTEAL FOLD -Time 14:10 -Correct Patient Yes -Correct Side, Site, Position Yes -Correct Procedure Yes -Procedure Performed Yes -Type of Procedure Debridement -Clinical Debridement Selective -Post Debridement Size (cm) - Length 7.3 -Post Debridement Size (cm) - Width 2.0 -Post Debridement Size (cm) - Depth 1.0 -Total Square (cm) 14.60 -Wound/Ulcer Outcome Not Healed -Ulcer Cleansing Rinsed/ Irrigated with Saline -Foul Odor after Cleansing No -Bioengineered Tissue No -Bleeding Controlled with Pressure -Offloading No -Treatment Response Procedure Tolerated Well Pain Scale: 0-10 Numeric Is Patient Pain Free? Yes Wound debrided: proximal posterior left medial thigh incision separation Laterality: Left Type of Debridement: Selective debridement Anesthesia Used: 4% Lidocaine Solution Depth: Down to and including healthy tissue, in the subcutaneous layer Percentage of wound debrided: 10 Instrument Used: 3mm curette Tissue Removed: Subcutaneous tissue and slough Severity: Fat Layer Exposed Amount of bleeding with debridement: Mild Bleeding Controlled with: Pressure Patient tolerated procedure well Assessment/Plan Active Problems Chronic osteomyelitis of right pelvic region (Chronic) Pressure injury, stage 4, with gangrene (Acute) right buttock Debility (Chronic) Multiple sclerosis (Chronic) Psoriasis (Chronic) Assessment: 1. Necrotic right ischial pressure sore, Stage IV. 2. Osteomyelitis. 3. Multiple sclerosis. 4. s/p excision necrotic right ischial pressure sore, Stage IV, with partial ostectomy for osteomyelitis. Plan: Surgery 05/27/20 - 1. Excision right ischial pressure sore, Stage IV, with partial ostectomy for osteomyelitis. 2. Reconstruction with right hamstrings myocutaneous advancement flap. 3. Placement AmnioFill placental connective tissue powder (500 mg). Pathology of bone was positive for acute and chronic osteiomyelitis. Operative soft tissue cultures positive for Corynebacterium striatum and Anaerobic cocci. Operative bone cultures positive for Anaerobic cocci. Treatment with Zosyn until 07/08/20. On 06/06/20 she had a Laparoscopic sigmoid colectomy with end colostomy placed by Dr. Coyne. On 06/14/20 - Ultrasound and fluoroscopy guided right chest port placement utilizing right IJ. Wound care- Remaining sutures removed, there is a small separation on left proximal posterior thigh. Will place silver into the small opening and along the incision line where there is moisture and cover with dry gauze. Obtained a follow up chest xray due to her aspiration pneumonia that she had while hospitalized which showed mild residual increasead markings at the lung bases with blunting of the left costophrenic angle. Surgery on 04/30/20 for Excision right ischial pressure sore, Stage IV, with partial ostectomy for osteomyelitis. Surgical wound cultures were negative for bacterial growth. Continue Augmentin. She will be on bed rest for 6 weeks. Prealbumin from 05/26/20 was 16.2. Encourage nutritional supplementation with protein to help the healing process. Follow up in two weeks. [id number]: [id number] Global Visit
[2020-07-15 14:32] VITALS: BP 117/68; PULSE 85; RESP 16; TEMP 36.8; BMI 27.6
--- NOTE | 2020-07-15 16:58 | PCM.WC.PN ---
Type of Wound Date of Service: 07/15/20 Chief Complaint: Right ischial pressure sore, Stage IV, with myocutaneous flap closure and mld flap compromise medially. History of Wound: Surgery 05/27/20 - 1. Excision right ischial pressure sore, Stage IV, with partial ostectomy for osteomyelitis. 2. Reconstruction with right hamstrings myocutaneous advancement flap. 3. Placement AmnioFill placental connective tissue powder (500 mg). Pathology of bone was positive for acute and chronic osteomyelitis. Operative soft tissue cultures positive for Corynebacterium striatum and Anaerobic cocci. Operative bone cultures positive for Anaerobic cocci. Treatment with Zosyn until 07/08/20. On 06/06/20 she had a Laparoscopic sigmoid colectomy with end colostomy placed by Dr. Coyne. On 06/14/20 - Ultrasound and fluoroscopy guided right chest port placement utilizing right IJ. Wound care- Silver dressing changes. Obtained a follow up chest xray due to her aspiration pneumonia that she had while hospitalized. It showed mild residual increased markings in the lung bases. Surgery 04/30/20 - Excision right ischial pressure sore, Stage IV, with partial ostectomy for osteomyelitis.Operative cultures from 04/30/20 were negative for bacterial growth for both the tissue and bone. Pathology from 04/30/20 - negative for osteomyelitis. CT Pelvis from 11/03/19 showed There is a 2.6 cm x 3.5 cm soft tissue defect in the medial proximal right. buttock with the surrounding soft tissue swelling and edema. The inflammatory changes extend into the right inferior pubic ramus with the findings suggestive of a possible bony destruction secondary to osteomyelitis. Dense calcifications are seen in the soft tissues overlying both buttocks and the left side of the sacrum. There is also evidence of a 3.2 cm x 4.1 cm soft tissue density involving the tip of the sacrum and coccyx. There is also evidence of multiple calcific densities and ossifications overlying the right greater trochanter. There is also evidence of soft tissue swelling at that site. Prealbumin from 05/26/20 was 16.2. Encourage nutritional supplementation with protein to help the healing process. Today she denies fever. Her appetite is ok. She has been discharged from the [facility] and is feeling much better being at home. Progress of Wound: Improved. - Physical Exam Vital Signs Temp Pulse Resp BP 98.3 F 85 16 117/68 07/15/20 14:32 07/15/20 14:32 07/15/20 14:32 07/15/20 14:32 Wound Measurements and Assessment - Nurse 1 - General Ulcer Measurement Start: 07/01/20 13:17 Freq: Status: Active Protocol: Activity Type Activity Date Activity User E-Sign Co-Sign Detail Recorded Client Recorded Date Recorded By Document 07/15/20 14:32 [facility] [id number] 07/15/20 14:48 [facility] 07/15/20 14:32 Wound Center Nurse 1 [Ulcer Assessment] #4- R GLUTEAL FOLD -Combined with other wound No -Current Size (cm) - Length 9.5 -Current Size (cm) - Width 2.8 -Current Size (cm) - Depth 1 -Total Square Cm 26.60 -Photo Taken No -Epithelialization None Present -Tunneling No -Undermining/Tunneling No -Circular Undermining No -Exudate Amt Small -Exudate Type Serosanguineous -Wound Margin Distinct, Outline Attached -Granulation Amt Medium (34-66%) -Granulation Quality [place] -Slough/Fibrin Yes -Necrosis Amt Medium (34-66%) -Necrotic Tissue Type Adherent Slough -Texture (Janene-wound Skin Appearance) Assessed, Scarring -Moisture (Janene-wound Skin Appearance Assessed ) -Color (Janene-wound Skin Appearance) Assessed -Temperature (Janene-wound Skin No Abnormality Appearance) (Pt Warm) -Tenderness on Palpation (Janene-wound No Skin Appearance) -Ulcer Cleansing Rinsed/ Irrigated with Saline -Foul Odor after Cleansing No -Anesthetic Used 4% Lidocaine Solution - Nurse 2 - General Ulcer CM Notes Start: 07/15/20 10:37 Freq: Status: Complete Protocol: Activity Type Activity Date Activity User E-Sign Co-Sign Detail Recorded Client Recorded Date Recorded By Document 07/15/20 14:58 [id number] 07/15/20 15:01 JF Edit Status 07/15/20 18:17 PL Active=>Complete [id number] 07/15/20 18:17 PL 07/15/20 14:58 Wound Center Nurse 2 [Procedure/Treatment] -Time 14:58 -Correct Patient Yes -Correct Side, Site, Position Yes -Correct Procedure Yes -Procedure Performed Yes -Type of Procedure Debridement -Clinical Debridement Muscle / Fascia -Tissue Removed Muscle -Post Debridement (cm) - Length 5.4 -Post Debridement (cm) - Width 2.5 -Post Debridement (cm) - Depth 1.2 -Total Square (Post) (cm) 13.50 -Area of Debridement (cm) - Length 5.4 -Area of Debridement (cm) - Width 2.4 -Total Square (Area) (cm) 12.96 -Tunneling No -Undermining/Tunneling No -Circular Undermining No -Wound/Ulcer Outcome Not Healed -Ulcer Cleansing Rinsed/ Irrigated with Saline -Foul Odor after Cleansing No -Bioengineered Tissue No -Bleeding Controlled with Pressure -Offloading No -Treatment Response Procedure Tolerated Well -Debridement - Muscle / Fascia, 1st Yes 20sq cm -Debridement, Muscle/Fascia, ea addt' 1 l 20sq cm or part thereof [See Physician Procedure note for Specifics] Pain Scale: 0-10 Numeric [Pain] -Is Patient Pain Free? Yes Debridement Note Post-Debridement Measurements/Treatment WC - Nurse 2 - General Ulcer CM Notes Start: 07/15/20 10:37 Freq: Status: Complete Protocol: Activity Type Activity Date Activity User E-Sign Co-Sign Detail Recorded Client Recorded Date Recorded By Document 07/15/20 14:58 [id number] 07/15/20 15:01 KIRK 07/15/20 14:58 Wound Center Nurse 2 #4- R GLUTEAL FOLD -Time 14:58 -Correct Patient Yes -Correct Side, Site, Position Yes -Correct Procedure Yes -Procedure Performed Yes -Type of Procedure Debridement -Clinical Debridement Muscle / Fascia -Tissue Removed Muscle -Post Debridement (cm) - Length 5.4 -Post Debridement (cm) - Width 2.5 -Post Debridement (cm) - Depth 1.2 -Total Square (Post) (cm) 13.50 -Area of Debridement (cm) - Length 5.4 -Area of Debridement (cm) - Width 2.4 -Total Square (Area) (cm) 12.96 -Tunneling No -Undermining/Tunneling No -Circular Undermining No -Wound/Ulcer Outcome Not Healed -Ulcer Cleansing Rinsed/ Irrigated with Saline -Foul Odor after Cleansing No -Bioengineered Tissue No -Bleeding Controlled with Pressure -Offloading No -Treatment Response Procedure Tolerated Well -Debridement - Muscle / Fascia, 1st Yes 20sq cm -Debridement, Muscle/Fascia, ea addt'l 1 20sq cm or part thereof Pain Scale: 0-10 Numeric Is Patient Pain Free? Yes Wound debrided: #4 Medial aspect right posterior flap. Laterality: Right Wound Grade/Stage: IV. Type of Debridement: Excisional debridement Anesthesia Used: 4% Lidocaine Solution Depth: Down to and including healthy tissue, in the subcutaneous layer, to muscle Percentage of wound debrided: 100 Instrument Used: 5mm curette Tissue Removed: subcutaneous tissue and muscle. Severity: Fat Layer Exposed - muscle is exposed. Amount of bleeding with debridement: Mild Bleeding Controlled with: Pressure Patient tolerated procedure well Assessment/Plan Active Problems Chronic osteomyelitis of right pelvic region (Chronic) Pressure injury, stage 4, with gangrene (Acute) right buttock Debility (Chronic) Multiple sclerosis (Chronic) Psoriasis (Chronic) Assessment: 1. Right ischial pressure sore, Stage IV. 2. Osteomyelitis. 3. Multiple sclerosis. 4. s/p excision right ischial pressure sore, Stage IV, with partial ostectomy for osteomyelitis and reconstruction with right hamstrings myocutaneous advancement flap and placement AmnioFill placental connective tissue powder (500 mg). Plan: Compromised area of flap medially improving with Silver dressing changes. states he sometimes does the Silver dressings twice a day. She has finished the Zosyn on 07/08/20 for the operative cultures that showed Anaerobic cocci and Corynebacterium striatum in the soft tissue and Anaerobic cocci in the bone. She initially was treated with Unasyn but was changed to Zosyn when she had x-ray changes consistent with possible aspiration after her colostomy. Repeat x-ray showed improvement. Prealbumin from 05/26/20 was 16.2. Encourage nutritional supplementation with protein to help the healing process. She gets up just for meals. Until more healing has occurred, I want to limit her movement (i.e., getting up in her wheelchair in addition to just for meals). Followup 2 weeks. [id number]: [id number] Global Visit - ICD-10 - Z48.89, L89.314, M86.651, G35
[2020-07-29 13:19] VITALS: BP 134/71; PULSE 95; RESP 16; TEMP 36.2; BMI 27.6
--- NOTE | 2020-07-29 15:27 | PCM.WC.PN ---
(1) Ulcer of right thigh Status: Chronic Code(s): L97.119 - Non-pressure chronic ulcer of right thigh with unspecified severity (2) Chronic osteomyelitis of right pelvic region Status: Chronic Code(s): M86.651 - Other chronic osteomyelitis, right thigh (3) Debility Status: Chronic Code(s): R53.81 - Other malaise (4) Multiple sclerosis Status: Chronic Code(s): G35 - Multiple sclerosis (5) Psoriasis Status: Chronic Code(s): L40.9 - Psoriasis, unspecified Type of Wound Date of Service: 07/29/20 Chief Complaint: Right ischial pressure sore, Stage IV, with myocutaneous flap closure and mld flap compromise medially. History of Wound: Surgery 05/27/20 - 1. Excision right ischial pressure sore, Stage IV, with partial ostectomy for osteomyelitis. 2. Reconstruction with right hamstrings myocutaneous advancement flap. 3. Placement AmnioFill placental connective tissue powder (500 mg). Pathology of bone was positive for acute and chronic osteomyelitis. Operative soft tissue cultures positive for Corynebacterium striatum and Anaerobic cocci. Operative bone cultures positive for Anaerobic cocci. Treatment with Zosyn until 07/08/20. On 06/06/20 she had a Laparoscopic sigmoid colectomy with end colostomy placed by Dr. Coyne. On 06/14/20 - Ultrasound and fluoroscopy guided right chest port placement utilizing right IJ. Wound care- Silver dressing changes daily to right edge of flap incison on posterior thigh. Obtained a follow up chest xray due to her aspiration pneumonia that she had while hospitalized. It showed mild residual increased markings in the lung bases. Surgery 04/30/20 - Excision right ischial pressure sore, Stage IV, with partial ostectomy for osteomyelitis.Operative cultures from 04/30/20 were negative for bacterial growth for both the tissue and bone. Pathology from 04/30/20 - negative for osteomyelitis. CT Pelvis from 11/03/19 showed There is a 2.6 cm x 3.5 cm soft tissue defect in the medial proximal right. buttock with the surrounding soft tissue swelling and edema. The inflammatory changes extend into the right inferior pubic ramus with the findings suggestive of a possible bony destruction secondary to osteomyelitis. Dense calcifications are seen in the soft tissues overlying both buttocks and the left side of the sacrum. There is also evidence of a 3.2 cm x 4.1 cm soft tissue density involving the tip of the sacrum and coccyx. There is also evidence of multiple calcific densities and ossifications overlying the right greater trochanter. There is also evidence of soft tissue swelling at that site. Prealbumin from 05/26/20 was 16.2. Encourage nutritional supplementation with protein to help the healing process. Today she denies fever. Her appetite is ok. She has been discharged from the [facility] and is feeling much better being at home. Progress of Wound: Improved. - Physical Exam Vital Signs Temp Pulse Resp BP 97.1 F L 95 16 134/71 H 07/29/20 13:19 07/29/20 13:19 07/29/20 13:19 07/29/20 13:19 General: Alert, Oriented x3, Cooperative HEENT: Atraumatic Oral: Moist Mucosa Lungs: Normal air movement Cardiovascular: Regular rate Abdomen: Soft Extremities: Capillary Refill Less than 3 Seconds Skin: Ulcer/ Wound - Right edge of flap on posterior thigh Wound Measurements and Assessment WC - Nurse 1 - General Ulcer Measurement Start: 07/01/20 13:17 Freq: Status: Active Protocol: Activity Type Activity Date Activity User E-Sign Co-Sign Detail Recorded Client Recorded Date Recorded By Document 07/29/20 13:19 [facility] [id number] 07/29/20 13:24 [facility] 07/29/20 13:19 Wound Center Nurse 1 [Ulcer Assessment] #4- R GLUTEAL FOLD -Combined with other wound No -Current Size (cm) - Length 2.3 -Current Size (cm) - Width 1.4 -Current Size (cm) - Depth 0.7 -Total Square Cm 3.22 -Photo Taken No -Tunneling No -Undermining/Tunneling No -Circular Undermining No -Exudate Amt Small -Exudate Type Serosanguineous -Wound Margin Distinct, Outline Attached -Granulation Amt Large (67-100%) -Granulation Quality Red -Slough/Fibrin Yes -Necrosis Amt Small (1-33%) -Necrotic Tissue Type Adherent Slough -Texture (Janene-wound Skin Appearance) Assessed, Scarring -Moisture (Janene-wound Skin Appearance Assessed ) -Color (Janene-wound Skin Appearance) Assessed -Temperature (Janene-wound Skin No Abnormality Appearance) (Pt Warm) -Tenderness on Palpation (Janene-wound No Skin Appearance) -Ulcer Cleansing Rinsed/ Irrigated with Saline -Foul Odor after Cleansing No -Anesthetic Used 4% Lidocaine Solution - Nurse 2 - General Ulcer CM Notes Start: 07/15/20 10:37 Freq: Status: Active Protocol: Activity Type Activity Date Activity User E-Sign Co-Sign Detail Recorded Client Recorded Date Recorded By Document 07/29/20 13:46 [id number] 07/29/20 13:49 07/29/20 13:46 Wound Center Nurse 2 [Procedure/Treatment] -Time 13:47 -Correct Patient Yes -Correct Side, Site, Position Yes -Correct Procedure Yes -Procedure Performed Yes -Type of Procedure Debridement -Clinical Debridement Muscle / Fascia -Tissue Removed Muscle -Post Debridement (cm) - Length 2.3 -Post Debridement (cm) - Width 1.4 -Post Debridement (cm) - Depth 1.0 -Total Square (Post) (cm) 3.22 -Area of Debridement (cm) - Length 2.3 -Area of Debridement (cm) - Width 1.4 -Total Square (Area) (cm) 3.22 -Tunneling No -Undermining/Tunneling No -Circular Undermining No -Wound/Ulcer Outcome Not Healed -Ulcer Cleansing Rinsed/ Irrigated with Saline -Foul Odor after Cleansing No -Bioengineered Tissue No -Bleeding Controlled with Pressure -Offloading No -Treatment Response Procedure Tolerated Well -Debridement - Muscle / Fascia, 1st Yes 20sq cm [See Physician Procedure note for Specifics] Pain Scale: 0-10 Numeric [Pain] -Is Patient Pain Free? Yes Musculoskeletal: No Tenderness to Palpation of Joints or Extremities Neurological: Cranial nerves II-XII grossly intact Psych/Mental Status: Normal Affect, Appropriate Debridement Note Post-Debridement Measurements/Treatment - Nurse 2 - General Ulcer CM Notes Start: 07/15/20 10:37 Freq: Status: Active Protocol: Activity Type Activity Date Activity User E-Sign Co-Sign Detail Recorded Client Recorded Date Recorded By Document 07/15/20 14:58 [id number] 07/15/20 15:01 Document 07/29/20 13:46 [id number] 07/29/20 13:49 07/15/20 07/29/20 14:58 13:46 Wound Center Nurse 2 #4- R GLUTEAL FOLD -Time 14:58 13:47 -Correct Patient Yes Yes -Correct Side, Site, Position Yes Yes -Correct Procedure Yes Yes -Procedure Performed Yes Yes -Type of Procedure Debridement Debridement -Clinical Debridement Muscle / Fascia Muscle / Fascia -Tissue Removed Muscle Muscle -Post Debridement (cm) - Length 5.4 2.3 -Post Debridement (cm) - Width 2.5 1.4 -Post Debridement (cm) - Depth 1.2 1.0 -Total Square (Post) (cm) 13.50 3.22 -Area of Debridement (cm) - Length 5.4 2.3 -Area of Debridement (cm) - Width 2.4 1.4 -Total Square (Area) (cm) 12.96 3.22 -Tunneling No No -Undermining/Tunneling No No -Circular Undermining No No -Wound/Ulcer Outcome Not Healed Not Healed -Ulcer Cleansing Rinsed/ Rinsed/ Irrigated with Irrigated with Saline Saline -Foul Odor after Cleansing No No -Bioengineered Tissue No No -Bleeding Controlled with Pressure Pressure -Offloading No No -Treatment Response Procedure Procedure Tolerated Well Tolerated Well -Debridement - Muscle / Fascia, 1st Yes Yes 20sq cm Pain Scale: 0-10 Numeric Is Patient Pain Free? Yes Yes Wound debrided: right edge of of flap ulcer Type of Debridement: Excisional debridement Anesthesia Used: 4% Lidocaine Solution Depth: Down to and including healthy tissue, in the subcutaneous layer Percentage of wound debrided: 100 Instrument Used: 5mm curette Tissue Removed: Subcutaneous tissue and slough Severity: Fat Layer Exposed Amount of bleeding with debridement: Mild Bleeding Controlled with: Pressure Patient tolerated procedure well Assessment/Plan Assessment: 1. Right ischial pressure sore, Stage IV. 2. Osteomyelitis. 3. Multiple sclerosis. 4. s/p excision right ischial pressure sore, Stage IV, with partial ostectomy for osteomyelitis and reconstruction with right hamstrings myocutaneous advancement flap and placement AmnioFill placental connective tissue powder (500 mg). Plan: Compromised area of flap medially improving with Silver dressing changes daily. states he sometimes does the Silver dressings twice a day. She has finished the Zosyn on 07/08/20 for the operative cultures that showed Anaerobic cocci and Corynebacterium striatum in the soft tissue and Anaerobic cocci in the bone. She initially was treated with Unasyn but was changed to Zosyn when she had x-ray changes consistent with possible aspiration after her colostomy. Repeat x-ray showed improvement. Prealbumin from 05/26/20 was 16.2. Encourage nutritional supplementation with protein to help the healing process. She gets up just for meals. Until more healing has occurred, I want to limit her movement (i.e., getting up in her wheelchair in addition to just for meals). Followup 2 weeks. [id number]: [id number] Global Visit
== END 2020-07-29 23:59 ==
LOC: WC 13:15
PROVIDERS: Family Provider Family Medicine; PCP Family Medicine; Referring Provider Nurse Practitioner Family; Visit Provider Nurse Practitioner Family
DX: L89.314 Pressure ulcer of right buttock, stage 4 (principal); M86.651 Other chronic osteomyelitis, right thigh; G35 Multiple sclerosis
CPT/HCPCS: 11043; 11046; 97597

== ENCOUNTER 2020-08-26 13:15 | Outpatient (RCR) | payer MEDICARE, SELFPAY ==
[2020-07-30 00:29] VITALS: BP 134/71; PULSE 95; RESP 16; TEMP 36.2
[2020-08-12 13:19] VITALS: BP 109/88; PULSE 98; RESP 18; TEMP 36.1; BMI 27.6
--- NOTE | 2020-08-12 16:14 | PN.PCM_ITS ---
Type of Wound Date of Service: 08/12/20 Chief Complaint: Right ischial pressure sore, Stage IV, with myocutaneous flap closure and mld flap compromise medially. History of Wound: Surgery 05/27/20 - 1. Excision right ischial pressure sore, Stage IV, with partial ostectomy for osteomyelitis. 2. Reconstruction with right hamstrings myocutaneous advancement flap. 3. Placement AmnioFill placental connective tissue powder (500 mg). Pathology of bone was positive for acute and chronic osteomyelitis. Operative soft tissue cultures positive for Corynebacterium striatum and Anaerobic cocci. Operative bone cultures positive for Anaerobic cocci. Treatment with Zosyn until 07/08/20. On 06/06/20 she had a Laparoscopic sigmoid colectomy with end colostomy placed by Dr. Coyne. On 06/14/20 - Ultrasound and fluoroscopy guided right chest port placement utilizing right IJ. Wound care- Silver dressing changes daily to medial edge of flap incison on posterior thigh. Obtained a follow up chest xray due to her aspiration pneumonia that she had while hospitalized. It showed mild residual increased markings in the lung bases. CT Pelvis from 11/03/19 showed There is a 2.6 cm x 3.5 cm soft tissue defect in the medial proximal right. buttock with the surrounding soft tissue swelling and edema. The inflammatory changes extend into the right inferior pubic ramus with the findings suggestive of a possible bony destruction secondary to osteomyelitis. Dense calcifications are seen in the soft tissues overlying both buttocks and the left side of the sacrum. There is also evidence of a 3.2 cm x 4.1 cm soft tissue density involving the tip of the sacrum and coccyx. There is also evidence of multiple calcific densities and ossifications overlying the right greater trochanter. There is also evidence of soft tissue swelling at that site. Prealbumin from 05/26/20 was 16.2. Encourage nutritional supplementation with protein to help the healing process. Today she denies fever. Her appetite is ok. She has been discharged from the [facility] and is feeling much better being at home. Progress of Wound: Improved. - Physical Exam Vital Signs Temp Pulse Resp BP 96.9 F L 98 18 109/88 H 08/12/20 13:19 08/12/20 13:19 08/12/20 13:19 08/12/20 13:19 Wound Measurements and Assessment - Nurse 1 - General Ulcer Measurement Start: 08/12/20 13:18 Freq: Status: Active Protocol: Activity Type Activity Date Activity User E-Sign Co-Sign Detail Recorded Client Recorded Date Recorded By Document 08/12/20 13:19 [facility] [id number] 08/12/20 13:26 [facility] 08/12/20 13:19 Wound Center Nurse 1 [Ulcer Assessment] #4- R ischial area, medial aspect of flap -Combined with other wound No -Current Size (cm) - Length 2 -Current Size (cm) - Width 1.3 -Current Size (cm) - Depth 1.3 -Total Square Cm 2.6 -Photo Taken No -Epithelialization Small 1-33% -Tunneling Yes -Tunneling Position (O'clock) 12 -Tunneling Distance (cm) 1 -Undermining/Tunneling No -Circular Undermining No -Exudate Amt Small -Exudate Type Serosanguineous -Wound Margin Distinct, Outline Attached -Granulation Amt Large (67-100%) -Granulation Quality Red -Slough/Fibrin No -Necrosis Amt None Present (0 %) -Texture (Janene-wound Skin Appearance) Assessed, Scarring -Moisture (Janene-wound Skin Appearance Assessed ) -Color (Janene-wound Skin Appearance) Assessed -Temperature (Janene-wound Skin No Abnormality Appearance) (Pt Warm) -Tenderness on Palpation (Janene-wound No Skin Appearance) -Ulcer Cleansing Rinsed/ Irrigated with Saline -Foul Odor after Cleansing No -Anesthetic Used 4% Lidocaine Solution - Nurse 2 - General Ulcer CM Notes Start: 08/12/20 13:18 Freq: Status: Active Protocol: Activity Type Activity Date Activity User E-Sign Co-Sign Detail Recorded Client Recorded Date Recorded By Document 08/12/20 13:46 [id number] 08/12/20 13:48 08/12/20 13:46 Wound Center Nurse 2 [Procedure/Treatment] -Time 13:46 -Correct Patient Yes -Correct Side, Site, Position Yes -Correct Procedure Yes -Procedure Performed Yes -Type of Procedure Debridement -Clinical Debridement Muscle / Fascia -Tissue Removed Muscle -Post Debridement (cm) - Length 2.1 -Post Debridement (cm) - Width 1.5 -Post Debridement (cm) - Depth 1.1 -Total Square (Post) (cm) 3.15 -Area of Debridement (cm) - Length 2.1 -Area of Debridement (cm) - Width 1.5 -Total Square (Area) (cm) 3.15 -Tunneling No -Undermining/Tunneling No -Circular Undermining No -Wound/Ulcer Outcome Not Healed -Ulcer Cleansing Rinsed/ Irrigated with Saline -Foul Odor after Cleansing No -Bioengineered Tissue No -Bleeding Controlled with Pressure -Offloading No -Treatment Response Procedure Tolerated Well -Debridement - Muscle / Fascia, 1st Yes 20sq cm [See Physician Procedure note for Specifics] Pain Scale: 0-10 Numeric [Pain] -Is Patient Pain Free? Yes - Nurse 3 - General Ulcer D/C NN Start: 08/12/20 13:18 Freq: Status: Active Protocol: Activity Type Activity Date Activity User E-Sign Co-Sign Detail Recorded Client Recorded Date Recorded By Document 08/12/20 14:04 [facility] [id number] 08/12/20 14:05 [facility] 08/12/20 14:04 Wound Care Nurse 3 [Wound Dressing] #4- R ischial area, medial aspect of flap -Ulcer Cleansing Rinsed/ Irrigated with Saline -Foul Odor after Cleansing No -Primary Dressing Applied Aquacel AG 4x4 -Primary Dressing Covered/Secured Secured with with Tape,Other -Other Covering abd, drsg per jimmie oliver lpn -Aquacel AG 4x4 1 [Post Procedure Tolerated] -Treatment Response Procedure Tolerated Well Pain Scale: 0-10 Numeric [Pain] -Is Patient Pain Free? Yes - Visit Discharge [Visit Discharge Information] -Discharge Condition Stable -Ambulatory Status Wheelchair -Transportation Private Auto -Accompanied by [Facility Notification] -Facility Type Home Health Debridement Note Post-Debridement Measurements/Treatment - Nurse 2 - General Ulcer CM Notes Start: 08/12/20 13:18 Freq: Status: Active Protocol: Activity Type Activity Date Activity User E-Sign Co-Sign Detail Recorded Client Recorded Date Recorded By Document 08/12/20 13:46 [id number] 08/12/20 13:48 08/12/20 13:46 Wound Center Nurse 2 #4- R ischial area, medial aspect of flap -Time 13:46 -Correct Patient Yes -Correct Side, Site, Position Yes -Correct Procedure Yes -Procedure Performed Yes -Type of Procedure Debridement -Clinical Debridement Muscle / Fascia -Tissue Removed Muscle -Post Debridement (cm) - Length 2.1 -Post Debridement (cm) - Width 1.5 -Post Debridement (cm) - Depth 1.1 -Total Square (Post) (cm) 3.15 -Area of Debridement (cm) - Length 2.1 -Area of Debridement (cm) - Width 1.5 -Total Square (Area) (cm) 3.15 -Tunneling No -Undermining/Tunneling No -Circular Undermining No -Wound/Ulcer Outcome Not Healed -Ulcer Cleansing Rinsed/ Irrigated with Saline -Foul Odor after Cleansing No -Bioengineered Tissue No -Bleeding Controlled with Pressure -Offloading No -Treatment Response Procedure Tolerated Well -Debridement - Muscle / Fascia, 1st Yes 20sq cm Pain Scale: 0-10 Numeric Is Patient Pain Free? Yes - Nurse 3 - General Ulcer D/C NN Start: 08/12/20 13:18 Freq: Status: Active Protocol: Activity Type Activity Date Activity User E-Sign Co-Sign Detail Recorded Client Recorded Date Recorded By Document 08/12/20 14:04 [facility] [id number] 08/12/20 14:05 [facility] 08/12/20 14:04 Wound Care Nurse 3 #4- R ischial area, medial aspect of flap -Ulcer Cleansing Rinsed/ Irrigated with Saline -Foul Odor after Cleansing No -Primary Dressing Applied Aquacel AG 4x4 -Primary Dressing Covered/Secured with Secured with Tape,Other -Other Covering abd, drsg per jimmie oliver lpn -Aquacel AG 4x4 1 Treatment Response Procedure Tolerated Well Pain Scale: 0-10 Numeric Is Patient Pain Free? Yes - Visit Discharge Discharge Condition Stable Ambulatory Status Wheelchair Transportation Private Auto Accompanied by Facility Type Home Health Wound debrided: #4 Right ischial area, medial aspect of flap. Laterality: Right Wound Grade/Stage: IV. Type of Debridement: Excisional debridement Anesthesia Used: 4% Lidocaine Solution Depth: Down to and including healthy tissue, in the subcutaneous layer, to muscle Percentage of wound debrided: 100 Instrument Used: 3mm curette Tissue Removed: subcutaneous tissue and muscle. Severity: Fat Layer Exposed - muscle is exposed. Amount of bleeding with debridement: Mild Bleeding Controlled with: Pressure Patient tolerated procedure well Assessment/Plan Assessment: 1. Right ischial pressure sore, Stage IV. 2. Osteomyelitis. 3. Multiple sclerosis. 4. s/p excision right ischial pressure sore, Stage IV, with partial ostectomy for osteomyelitis and reconstruction with right hamstrings myocutaneous advancement flap and placement AmnioFill placental connective tissue powder (500 mg). 5. Mild compromise medial aspect of myocutaneous flap. Plan: Compromised area of flap medially improving with Silver dressing changes daily. states he sometimes does the Silver dressings twice a day. Improvement in the wound is noted. She has finished the Zosyn on 07/08/20 for the operative cultures that showed Anaerobic cocci and Corynebacterium striatum in the soft tissue and Anaerobic cocci in the bone. She initially was treated with Unasyn but was changed to Zosyn when she had x-ray changes consistent with possible aspiration after her colostomy. Repeat x-ray showed improvement. Prealbumin from 05/26/20 was 16.2. Encourage nutritional supplementation with protein to help the healing process. She gets up just for meals. With the improvement in the healing of the wound, she may get up besides just for meals. Discussed with her that if he notices any worsening of the wound, then to go back just to getting up for meals. The surrounding tissue is soft. Discussed with the patient that we can consider complex secondary surgical closure of the wound or a local skin flap medially without having to advance the myocutaneous flap. With complex secondary wound closure or a local skin flap, she won't need 6 weeks of bedrest postoperatively. Will consider operative intervention and closure in the next 1-2 months depending on continued healing. She voices understanding and is interested in wound closure. Will discuss at future visits. Followup 2 weeks. [id number]-113xx: [id number] Global Visit - ICD-10 - Z48.89, L89.314, M86.651, T86.828, G35
[2020-08-26 13:09] VITALS: BP 126/91; PULSE 101; RESP 22; TEMP 36.3; BMI 27.6
[2020-08-26 14:16] VITALS: BP 125/59; PULSE 79; RESP 18; TEMP 36.7
--- NOTE | 2020-08-26 17:48 | PCM.WC.PN ---
Type of Wound Date of Service: 08/26/20 Chief Complaint: Right ischial pressure sore, Stage IV, with myocutaneous flap closure and mild flap compromise medially. History of Wound: Surgery 05/27/20 - 1. Excision right ischial pressure sore, Stage IV, with partial ostectomy for osteomyelitis. 2. Reconstruction with right hamstrings myocutaneous advancement flap. 3. Placement AmnioFill placental connective tissue powder (500 mg). Pathology of bone was positive for acute and chronic osteomyelitis. Operative soft tissue cultures positive for Corynebacterium striatum and Anaerobic cocci. Operative bone cultures positive for Anaerobic cocci. Treatment with Zosyn until 07/08/20. On 06/06/20 she had a Laparoscopic sigmoid colectomy with end colostomy placed by Dr. Coyne. On 06/14/20 - Ultrasound and fluoroscopy guided right chest port placement utilizing right IJ. Wound care- Silver dressing changes daily to medial edge of flap incison on posterior thigh. Obtained a follow up chest xray due to her aspiration pneumonia that she had while hospitalized. It showed mild residual increased markings in the lung bases. CT Pelvis from 11/03/19 showed There is a 2.6 cm x 3.5 cm soft tissue defect in the medial proximal right. buttock with the surrounding soft tissue swelling and edema. The inflammatory changes extend into the right inferior pubic ramus with the findings suggestive of a possible bony destruction secondary to osteomyelitis. Dense calcifications are seen in the soft tissues overlying both buttocks and the left side of the sacrum. There is also evidence of a 3.2 cm x 4.1 cm soft tissue density involving the tip of the sacrum and coccyx. There is also evidence of multiple calcific densities and ossifications overlying the right greater trochanter. There is also evidence of soft tissue swelling at that site. Prealbumin from 05/26/20 was 16.2. Encourage nutritional supplementation with protein to help the healing process. Today she denies fever. Her appetite is ok. She has been discharged from the [facility] and is feeling much better being at home. Progress of Wound: Slightly improved. - Physical Exam Vital Signs Temp Pulse Resp BP 98.1 F 79 18 125/59 H 08/26/20 14:16 08/26/20 14:16 08/26/20 14:16 08/26/20 14:16 Wound Measurements and Assessment WC - Nurse 1 - General Ulcer Measurement Start: 08/12/20 13:18 Freq: Status: Active Protocol: Activity Type Activity Date Activity User E-Sign Co-Sign Detail Recorded Client Recorded Date Recorded By Document 08/26/20 13:09 DL [id number] 08/26/20 13:23 DL 08/26/20 13:09 Wound Center Nurse 1 [Ulcer Assessment] #4- R GLUTEAL FOLD -Current Size (cm) - Length 1.1 -Current Size (cm) - Width 2 -Current Size (cm) - Depth 1.7 -Total Square Cm 2.2 -Photo Taken No -Undermining/Tunneling Starts (O' 1 clock) -Undermining/Tunneling Ends (O'clock) 3 -Maximum Distance (cm) 1.7 -Circular Undermining No -Exudate Amt Small -Exudate Type Serosanguineous -Wound Margin Thickened & Rolled Under -Granulation Amt Large (67-100%) -Granulation Quality Red -Necrosis Amt Small (1-33%) -Necrotic Tissue Type Adherent Slough -Structure Exposed N/A -Texture (Janene-wound Skin Appearance) Excoriation, Scarring -Moisture (Janene-wound Skin Appearance Dry/Scaly ) -Color (Janene-wound Skin Appearance) Rubor -Temperature (Janene-wound Skin No Abnormality Appearance) (Pt Warm) -Tenderness on Palpation (Janene-wound No Skin Appearance) -Ulcer Cleansing Wound Cleanser -Foul Odor after Cleansing No -Anesthetic Used 4% Lidocaine Solution WC - Nurse 2 - General Ulcer CM Notes Start: 08/12/20 13:18 Freq: Status: Active Protocol: Activity Type Activity Date Activity User E-Sign Co-Sign Detail Recorded Client Recorded Date Recorded By Document 08/26/20 13:59 [id number] 08/26/20 14:04 08/26/20 13:59 Wound Center Nurse 2 [Procedure/Treatment] -Time 13:59 -Correct Patient Yes -Correct Side, Site, Position Yes -Correct Procedure Yes -Procedure Performed Yes -Type of Procedure Debridement -Clinical Debridement Muscle / Fascia -Tissue Removed Muscle -Post Debridement (cm) - Length 1.2 -Post Debridement (cm) - Width 2 -Post Debridement (cm) - Depth 1.7 -Total Square (Post) (cm) 2.4 -Area of Debridement (cm) - Length 1.2 -Area of Debridement (cm) - Width 2 -Total Square (Area) (cm) 2.4 -Tunneling No -Undermining/Tunneling No -Circular Undermining No -Wound/Ulcer Outcome Not Healed -Ulcer Cleansing Rinsed/ Irrigated with Saline -Foul Odor after Cleansing No -Bioengineered Tissue No -Bleeding Controlled with Pressure -Offloading No -Treatment Response Procedure Tolerated Well -Debridement - Subq, 1st 20sq cm No -Debridement - Muscle / Fascia, 1st Yes 20sq cm [See Physician Procedure note for Specifics] Pain Scale: 0-10 Numeric [Pain] -Is Patient Pain Free? Yes WC - Nurse 3 - General Ulcer D/C NN Start: 08/12/20 13:18 Freq: Status: Active Protocol: Activity Type Activity Date Activity User E-Sign Co-Sign Detail Recorded Client Recorded Date Recorded By Document 08/26/20 14:16 DL [id number] 08/26/20 14:20 DL 08/26/20 14:16 Wound Care Nurse 3 [Wound Dressing] #4- R GLUTEAL FOLD -Ulcer Cleansing Rinsed/ Irrigated with Saline -Foul Odor after Cleansing No -Primary Dressing Applied Aquacel AG 2x2, Mepilex Border -Aquacel AG 2x2 1 -Mepilex Border 1 [Post Procedure Tolerated] -Treatment Response Procedure Tolerated Well Vital Signs [Temperature Protocol: VS] -Temperature (97.8 F-99.1 F) 98.1 F -Temperature Source Temporal [Pulse] -Pulse Rate (60-100) 79 -Pulse Location Monitor [Respirations] -Respiratory Rate (12-18) 18 -Respiratory rate source Observation [Blood Pressure] -Blood Pressure (90/60-120/80) 125/59 H -Blood Pressure Mean (mm Hg) 81 -Source Monitor Pain Scale: 0-10 Numeric [Pain] -Is Patient Pain Free? Yes WC - Visit Discharge [Visit Discharge Information] -Discharge Condition Stable -Ambulatory Status Wheelchair [Facility Notification] -Facility Type Home Health -Orders Sent Yes Debridement Note Post-Debridement Measurements/Treatment WC - Nurse 2 - General Ulcer CM Notes Start: 08/12/20 13:18 Freq: Status: Active Protocol: Activity Type Activity Date Activity User E-Sign Co-Sign Detail Recorded Client Recorded Date Recorded By Document 08/12/20 13:46 [id number] 08/12/20 13:48 Document 08/26/20 13:59 [id number] 08/26/20 14:04 08/12/20 08/26/20 13:46 13:59 Wound Center Nurse 2 #4- R GLUTEAL FOLD -Time 13:46 13:59 -Correct Patient Yes Yes -Correct Side, Site, Position Yes Yes -Correct Procedure Yes Yes -Procedure Performed Yes Yes -Type of Procedure Debridement Debridement -Clinical Debridement Muscle / Fascia Muscle / Fascia -Tissue Removed Muscle Muscle -Post Debridement (cm) - Length 2.1 1.2 -Post Debridement (cm) - Width 1.5 2 -Post Debridement (cm) - Depth 1.1 1.7 -Total Square (Post) (cm) 3.15 2.4 -Area of Debridement (cm) - Length 2.1 1.2 -Area of Debridement (cm) - Width 1.5 2 -Total Square (Area) (cm) 3.15 2.4 -Tunneling No No -Undermining/Tunneling No No -Circular Undermining No No -Wound/Ulcer Outcome Not Healed Not Healed -Ulcer Cleansing Rinsed/ Rinsed/ Irrigated with Irrigated with Saline Saline -Foul Odor after Cleansing No No -Bioengineered Tissue No No -Bleeding Controlled with Pressure Pressure -Offloading No No -Treatment Response Procedure Procedure Tolerated Well Tolerated Well -Debridement - Subq, 1st 20sq cm No -Debridement - Muscle / Fascia, 1st Yes Yes 20sq cm Pain Scale: 0-10 Numeric Is Patient Pain Free? Yes Yes WC - Nurse 3 - General Ulcer D/C NN Start: 08/12/20 13:18 Freq: Status: Active Protocol: Activity Type Activity Date Activity User E-Sign Co-Sign Detail Recorded Client Recorded Date Recorded By Document 08/12/20 14:04 [facility] [id number] 08/12/20 14:05 [facility] Document 08/26/20 14:16 DL [id number] 08/26/20 14:20 DL 08/12/20 08/26/20 14:04 14:16 Wound Care Nurse 3 #4- R GLUTEAL FOLD -Ulcer Cleansing Rinsed/ Rinsed/ Irrigated with Irrigated with Saline Saline -Foul Odor after Cleansing No No -Primary Dressing Applied Aquacel AG 4x4 Aquacel AG 2x2, Mepilex Border -Primary Dressing Covered/Secured with Secured with Tape,Other -Other Covering harjit nieves per 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 Yes Yes Temperature (97.8 F-99.1 F) 98.1 F Temperature Source Temporal Pulse Rate (60-100) 79 Pulse Location Monitor Respiratory Rate (12-18) 18 Respiratory rate source Observation Blood Pressure (90/60-120/80) 125/59 H Blood Pressure Mean (mm Hg) 81 Source Monitor WC - Visit Discharge Discharge Condition Stable Stable Ambulatory Status Wheelchair Wheelchair Transportation Private Auto Accompanied by Facility Type Home Health Home Health Orders Sent Yes Wound debrided: #4 Right ischial area, medial aspect of flap. Laterality: Right Wound Grade/Stage: IV. Type of Debridement: Excisional debridement Anesthesia Used: 4% Lidocaine Solution Depth: Down to and including healthy tissue, in the subcutaneous layer, to muscle Percentage of wound debrided: 100 Instrument Used: 5mm curette Tissue Removed: subcutaneous tissue and muscle. Severity: Fat Layer Exposed - muscle is exposed. Amount of bleeding with debridement: Mild Bleeding Controlled with: Pressure Patient tolerated procedure well Assessment/Plan Assessment: 1. Right ischial pressure sore, Stage IV. 2. Osteomyelitis. 3. Multiple sclerosis. 4. s/p excision right ischial pressure sore, Stage IV, with partial ostectomy for osteomyelitis and reconstruction with right hamstrings myocutaneous advancement flap and placement AmnioFill placental connective tissue powder (500 mg). 5. Mild compromise medial aspect of myocutaneous flap. Plan: Compromised area of flap medially improving with Silver dressing changes daily. states he sometimes does the Silver dressings twice a day. Improvement in the wound is noted. She has finished the Zosyn on 07/08/20 for the operative cultures that showed Anaerobic cocci and Corynebacterium striatum in the soft tissue and Anaerobic cocci in the bone. She initially was treated with Unasyn but was changed to Zosyn when she had x-ray changes consistent with possible aspiration after her colostomy. Repeat x-ray showed improvement. Prealbumin from 05/26/20 was 16.2. Encourage nutritional supplementation with protein to help the healing process. She has started to get up besides just for meals. There is no clinical evidence of worsening of the healing wound. Discussed with her that if he notices any worsening of the wound, then to go back just to getting up for meals. The surrounding tissue is soft. Discussed with the patient that we can consider complex secondary surgical closure of the wound or a local skin flap medially without having to advance the myocutaneous flap. With complex secondary wound closure or a local skin flap, she won't need 6 weeks of bedrest postoperatively. The patient states she is interested in proceeding with wound closure. She is concerned that if she waits too long, the wound will worsen down to the bone which may necessitate readvancement of the myocutaneous flap which would mean 6 weeks of bedrest. Patient was informed of the risks and complications of the procedure including alternatives to surgery. These were discussed with her personally. She voices understanding and wishes to proceed. Surgery would be done under general anesthesia with a surgical observation overnight stay in the hospital. Followup 2 weeks. [id number]: [id number] Neeta musc/fascia 20 sq cm/< - ICD-10 - Z48.89, L89.314, M86.651, T86.828, G35
== END 2020-08-28 23:59 ==
LOC: WC 13:15
PROVIDERS: Family Provider Family Medicine; PCP Family Medicine; Referring Provider Nurse Practitioner Family; Visit Provider Nurse Practitioner Family
DX: L89.314 Pressure ulcer of right buttock, stage 4 (principal); M86.651 Other chronic osteomyelitis, right thigh; G35 Multiple sclerosis; R60.0 Localized edema; Z93.3 Colostomy status; Z85.3 Personal history of malignant neoplasm of breast; Z79.899 Other long term (current) drug therapy
CPT/HCPCS: 11043

== ENCOUNTER 2020-09-10 15:42 | Inpatient (IN) | payer MEDICARE, SELFPAY ==
--- NOTE | 2020-09-09 21:29 | HP.PCM_ITS ---
History and Physical Date of Admission: 09/10/20 HISTORY OF PRESENT ILLNESS The patient is a 65 year old F with a history of MS presented with a right ischial pressure sore that was excised and reconstructed with a right hamstrings myocutaneous advancement flap on 05/27/20. She also underwent a colostomy on 06/06/20. Initially she went to an [facility]CF and developed some drainage in her incision line. She was then discharged home as her felt he could care for her now that a colostomy was performed. Before that he was doing daily digital stimulation to help with bowel movements. Operative culture showed Anaerobic cocci. She also had a question of aspiration and was treated with Zosyn. Pathology was positive for osteomyelitis. The wound separation medially stabilized once she was discharged home as her was doing Silver dressing changes 1-2 times per day. Recently it was noted there was some serous drainage lateral to the ulcer in the previous myocutaneous advancement flap scar. No purulent drainage was seen. She presents today for continued operative debridement and complex secondary wound closure versus local transposition skin flap versus readvancement of her myocutaneous flap. PAST MEDICAL HISTORY Chronic osteomyelitis of right pelvic region Right ischial pressure sore, stage 4 Multiple sclerosis PAST SURGICAL HISTORY Excision necrotic right ischial pressure sore, Stage IV, with partial ostectomy for osteomyelitis - 11/03/19 Excision right ischial pressure sore, Stage IV, with partial ostectomy for osteomyelitis - 04/30/20 Excision right ischial pressure sore, Stage IV, with partial ostectomy for os teomyelitis and reconstruction with right hamstrings myocutaneous advancement flap and placement AmnioFill placental connective tissue powder (500 mg) - 05/27/20 Laparoscopic sigmoid colectomy with end colostomy - 06/06/20 Ultrasound and fluoroscopy guided right chest port placement utilizing right IJ - 06/14/20 ALLERGIES bacitracin [From Neosporin ([id number]-[id number])] neomycin [From Neosporin ([id number]-mpp-wchsi)] ondansetron [From Zofran] polymyxin B [From Neosporin ([id number])] Sulfa (Sulfonamide Antibiotics) MEDICATIONS Tylenol, Vitamin C, Baclofen, Vitamin D3, Cholestyramine, Cranberry, Colace, Letrozole, Culturelle, Milk of Magnesia, Macrodantin, Domingo, Nystatin, Ditropan, K-cathie, Pro-Stat, Vitamin E. SOCIAL HISTORY Smoking Status: Never smoker FAMILY HISTORY Maternal - Cancer Paternal - Heart Disease REVIEW OF SYSTEMS Comment: Constitutional: Denies: Chills, Fever, Weight Change. HEENT: Denies: Head Aches, Sinus Congestion, Sinus Drainage. Cardiovascular: Denies: Chest Pain, Palpitations. Respiratory: Denies: Cough, Shortness of breath at rest, Sputum production. Gastrointestinal: Denies: Abdominal Pain, Nausea, Vomiting. Genitourinary: Denies: Dysuria. Musculoskeletal: Denies: Joint Pain, Joint Tenderness. Skin: Reports: Wounds - For the last 2 to 3 weeks. Denies: Rash. Neurological: Denies: Numbness, Tingling, Focal weakness. Psychiatric: Denies: Anxiety, Depression. Hematologic/ Lymphatic: Denies: Easy Bruising, Easy Bleeding PHYSICAL EXAMINATION Vitals/I&O's: General: Alert, Oriented x3, Cooperative, No apparent distress HEENT: PERRLA, EOMI. Oral: Moist Mucosa Neck: Supple, nontender. No cervical adenopathy. Lungs: Clear to auscultation. Cardiovascular: Regular rate, Regular Rhythm. Abdomen: Soft, Non-Distended. Extremities: No edema. Skin: On the right ischial area is a nonhealing pressure sore ulcer in the medial aspect of the flap. Measures 1.2 x 2 x 1.7 cm. Some granulation tissue seen. No bone is palpable. There is some serous drainage noted recently lateral to the ulcer in the previous myocutaneous advancement flap scar. No purulent drainage. Neurological: - CN II - XII grossly intact. Psych/Mental Status: Normal Affect, Appropriate ASSESSMENT 1. Recurrent right ischial pressure sore, Stage IV, with incisional breakdown medially after myocutaneous flap in 05/18.. 2. Osteomyelitis. 3. Multiple sclerosis. PLAN There is no clinical evidence of worsening of the healing wound except for some recent serous drainage. The surrounding tissue is soft. Discussed with the patient that we can consider complex secondary surgical closure of the wound or a local skin flap medially without having to advance the myocutaneous flap. With complex secondary wound closure or a local skin flap, she won't need 6 weeks of bedrest postoperatively. The patient states she is interested in proceeding with wound closure. Patient is aware that with the recent drainage from the lateral aspect of the flap incision, that after excisional debridement, readvancement of the myocutaneous flap may be necessary. If done, then it would mean 6 weeks of bedrest. Patient was informed of the risks and complications of the procedure including alternatives to surgery. These were discussed with her personally. She voices understanding and wishes to proceed. Surgery would be done under general anesthesia with a surgical observation overnight stay in the hospital. Tissue that is removed will be sent to Pathology for analysis to rule out carcinoma and to Microbiology for culture. A positive culture will necessitate antibiotic therapy. No bone is exposed at this time. If after the debridement, there is bone exposed then a partial ostectomy will be done to evaluate for osteomyelitis. We discussed the current risks associated with COVID-19. While it is understood that there is a community spread of COVID-19, the risk of alice COVID-19 while at [facility] ([facility]) is very low; however, the risk cannot be completely mitigated because of the community spread of the disease. We discussed in detail the risk of exposure to and/or potential harm posed by the COVID-19 virus with having a surgery/procedure at this time versus the risk of delaying the surgery/procedure. It is not possible to know either the risk of delaying the surgery or procedure or chance of getting an infection with perfect accuracy, but a joint decision was made to proceed at this time with the scheduled surgery/procedure as indicated on the consent form. Patient was notified that we will need to comply with any screening or testing [facility] wishes to perform or that surgery may be delayed for any positive results. Discussed with the patient that I was tested for COVID-19 on 05/30/20 which was negative and on 06/13/20 which was negative and on 06/27/20 which was negative and on 07/11/20 which was negative and on 07/25/20 which was negative and on 08/15/20 which was negative and on 09/05/20 which was negative. My testing regimen at this time is to be COVID-19 tested every 2 weeks or so. Procedure Criteria Procedure Type: Elective COVID Risk Discussion: The surgeon/proceduralist and patient have discussed in detail the risk of exposure to and/or potential harm posed by the COVID-19 virus with having a surgery/procedure at this time versus the risk of delaying the surgery/procedure. It is not possible to know either the risk of delaying the surgery or procedure or chance of getting an infection with perfect accuracy, but a joint decision was made between the patient and the surgeon/proceduralist to proceed at this time with the scheduled surgery/procedure as indicated on the consent form.
[2020-09-10] VITALS (12 sets, daily range): BP systolic 97–137; BP diastolic 47–81; PULSE 64–84; RESP 16–18; TEMP 36.2–36.9; O2SAT 85–100; BMI 26.6
[2020-09-10] MEDS: Lactated Ringers 1,000 ML 100 ML IV ×2 (10:30→13:00)
--- NOTE | 2020-09-10 11:20 | PRES_PTH ---
PATIENT: NAY GREENE LOC: [facility]3 U#:[id number] AGE/SX: 65/F ROOM: NJ313 RE09/10/[address]: Dr. Jose E Dougherty MD : 1955 BED: 1 DIS: 09/15/2020 SPEC #: [id number] RECD: 09/10/20 14:56 STATUS: HETAL REQ #: [id number] DEEJAY: 09/10/20 11:[address]: Jose E Dougherty DEPT: SURGICAL PATHOLOGY RECD BY: Estelle Thomas ENTERED: 09/11/20 07:04 SP TYPE: PRESS SORE OTHR DR: Dr. Jovon Levy MD Tissues: A - Ischium, NOS B - Ischium, NOS Procedures: Decalcification bone/plaque Surgery Specimen Level III HEADER OPERATION: Surgical prep right medial ischial pressure sore PRE-OP DIAGNOSIS: Recurrent right ischial pressure sore stage IV; osteomyelitis TISSUE SUBMITTED: A - Debrided tissue right ischial pressure sore, B - Debrided bone right ischial MICROSCOPIC DIAGNOSIS A. Right ischial pressure sore, debrided tissue: Pieces of skin with underlying tissue with focal ulceration, acute and chronic inflammation, focal fat necrosis and fibrosis. B. Debrided bone, right ischial: Pieces of bone with reactive changes, negative for acute osteomyelitis. TYLER:nano 09/16/20 MICROSCOPIC DESCRIPTION Slides are reviewed. GROSS DESCRIPTION A - Received in fixative is one container labeled with the patient's name and designated debrided tissue right ischial pressure sore. The specimen consists of multiple pieces of skin with underlying tissue that in aggregate measure 8 x 8 x 3 cm. The skin surface shows a focal area of ulceration. No mass lesion is identified. Vamp Cut Out Worker sections are submitted in two cassettes. B - Received in fixative is one container labeled with the patient's name and designated debrided bone right ischial. The specimen consists of multiple pieces of bone that in aggregate measure 2.5 x 2 x 0.4 cm. The entire specimen is submitted in one cassette after decalcification. / TYLER:nano 09/11/20 TC:2 CPT: 67590 x2, 27393
[2020-09-10] MEDS: Mupirocin Ointment 22gm Tube 1 APPLIC (15:30)
--- NOTE | 2020-09-10 15:35 | PCM.OPRPT ---
Report of Operation Date of Procedure: 09/10/20 Pre-Operative Diagnosis: 1. Recurrent right ischial pressure sore, Stage IV, with incisional breakdown medially after myocutaneous flap in 05/18. 2. Osteomyelitis. 3. Multiple sclerosis. Post-Operative Diagnosis: Same. Surgery/Procedure Performed:: 1. Excision recurrent right ischial pressure sore, Stage IV, with partial ostectomy for osteomyelitis. 2. Reconstruction with right hamstrings V-Y myocutaneous advancement flap. Description of Surgical Findings:: The patient is a 65 year old F with a history of MS presented with a right ischial pressure sore that was excised and reconstructed with a right hamstrings myocutaneous advancement flap on 05/27/20. She also underwent a colostomy on 06/06/20. Initially she went to an ECF and developed some drainage in her incision line. She was then discharged home as her felt he could care for her now that a colostomy was performed. Before that he was doing daily digital stimulation to help with bowel movements. Operative culture showed Anaerobic cocci. She also had a question of aspiration and was treated with Zosyn. Pathology was positive for osteomyelitis. The wound separation medially stabilized once she was discharged home as her was doing Silver dressing changes 1-2 times per day. Recently it was noted there was some serous drainage lateral to the ulcer in the previous myocutaneous advancement flap scar. No purulent drainage was seen. She presents today for continued operative debridement and complex secondary wound closure versus local transposition skin flap versus readvancement of her myocutaneous flap. Patient was informed of the risks and complications of the procedure including alternatives to surgery. These were discussed with the patient personally. Patient voices understanding and wishes to proceed. IV Fluids - 2000 ml. Urine Output - 400 ml. I used AmnioFill Placental Connective Tissue Powder, 1000 mg. Catalog Number - [id number]. Lot Number - [id number]. Expiration - December 30, 2024. I used Margarita absorbable hemostat, (I used 3 vials). Reference Number - [id number]. Lot Number - [id number]. Expiration - April 25, 2025, (2 vials). Reference Number - [id number]. Lot Number - [id number]. Expiration - November 25, 2024, (one vial). hr operations advisor: Dung Jarrett. Type of Anesthesia:: General Specimen's removed: 1. Recurrent right ischial pressure sore, Stage IV, soft tissue to Pathology and Microbiology. 2. Recurrent right ischial pressure sore, Stage IV, bone to Pathology and Microbiology. Drains: Bhupendra x2. Estimated Blood Loss (mL): 150 ml. Fluids Replaced: 2400 ml (IV Fluids 2000 ml, Urine Output 400 ml). Description of Procedure: Patient was taken to OR in supine position and was placed under general anesthesia. She was then placed in the prone position. The right ischial area and right posterior thigh area were prepped and draped in the usual fashion. The operating table was placed in the darius-knife position. SCD's were placed for DVT prophylaxis. Perioperative antibiotics were given intravenously. For the procedure, I wore an N95 mask and wore proper eyewear protection. Using a marking pen, I kortney out a triangular skin flap from the ischial ulcer down the posterior thigh to the level of the popliteal fossa in case a readvancement of the myocutaneous flap becomes necessary. Using xylocaine with epinephrine, the right ischial pressure sore was infiltrated. After waiting 5 minutes for the anesthetic to take effect, I excised the right ischial pressure sore down to the underlying muscle. There was extension of the ulcer medially to the ischial bone. The bone was exposed and with a diagnosis of osteomyelitis, I felt a further partial ostectomy in several areas was necessary to evaluate for osteomyelitis. A rasp was used to smooth out the bony edges. Half the soft tissue and half the bone was sent to Pathology for analysis to rule out carcinoma and to evaluate for osteomyelitis. Half the soft tissue and half the bone was sent to Microbiology for culture. A positive culture will necessitate antibiotic therapy. At present, she is being treated with Unasyn perioperatively. I tried to reapproximate the muscle layer over the exposed bone and felt there was too much tension. Therefore I decided to re-advance the hamstrings myocutaneous flap in a V-Y fashion. This will help take tension off the closure. I made longitudinal incisions on her posterior thigh both on the lateral side and on the medial side down toward the popliteal fossa. Dissection was carried down to the hamstrings muscle. I dissected deep to the muscles where vascular perforators were noted and preserved. At the level close to the popliteal fossa, I incised the musculotendinous ends of the biceps femoris, semimembranous, and semitendinosus muscles. I mobilized the previously excised hamstring muscles at the level of the ischial bone. This loosened up the myocutaneous flap as I was able to advance it into the right ischial defect without tension. The sciatic nerve was seen and preserved as it did not hinder the advancement of the myocutaneous flap. The wounds were irrigated with Irrisept 0.05% Chlorhexidine solution and followed with saline irrigation. Hemostasis was obtained with electrocautery. I placed AmnioFill placental connective tissue powder at the level of the ischial ulcer to aid in wound healing. I used 1000 mg. I then sprayed Margarita absorbable hemostat into the wounds to minimize seroma formation. I used 3 vials. I placed 2 size 15 Bhupendra drains through separate stab incisions inferiorly and secured to the skin with 3-0 Nylon sutures. I then closed the proximal aspect of the myocutaneous flap to the distal edge of the gluteus muscle with 2-0 Vicryl figure of eight interrupted sutures. This provided muscular coverage over the bone. The deep subcutaneous tissue was approximated with 2-0 Vicryl figure of eight interrupted sutures. The deep dermis and subcutaneous tissue was approximated with 2-0 Vicryl suture. The skin was approximated with 3-0 Nylon vertical mattress interrupted sutures and simple interrupted sutures. The medial and lateral sides of the myocutaneous flap were closed in multiple layers with 2-0 Vicryl figure of eight interrupted sutures at the level of the muscular fascia. The deep dermis and subcutaneous tissue was approximated with 2-0 Vicryl interrupted sutures. The skin was approximated with surgical clips. Surgical clips were also placed in the area of the right ischial wound closure in between the Nylon sutures. The myocutaneous flap was advanced in a V-Y fashion. The distal longitudinal portion of the wound was closed in multiple layers with 2-0 Vicryl figure of eight interrupted sutures for the muscular fascial closure. The deep dermis and subcutaneous tissue was approximated with 2-0 Vicryl interrupted sutures. The skin was approximated with 3-0 Nylon vertical mattress interrupted sutures. Antibiotic ointment was applied to the suture line followed by Xeroform gauze and ollowed by Kerlix gauze and ABD pads and a compression SHARON wrap. At the end of the procedure, the flap was soft with no evidence of vascular compromise and no evidence of hematoma. Patient tolerated the procedure well and was sent to PACU in satisfactory condition. Patient will be sent upstairs for continued postop care. She will be on strict bedrest for 6 weeks. Will remove the drains in 2-3 weeks. The sutures will be removed in 3 weeks. Grafts/Implants Used: AmnioFill Placental Connective Tissue Powder, Margarita. - Complications None. - Admit VTE Documentation VTE Present on Admission: No VTE Mechan Device Prophylaxis: SCD's VTE Pharm Prophylaxis ordered?: Yes Surgery Charges CPT - 87921-25 ICD-10 - L89.314, M86.651, G35 [id number] L89.314, M86.651, G35
[2020-09-10] MEDS: Lactated Ringers 1,000 ML 60 ML IV (18:20)
[2020-09-10] MEDS: Docusate Sodium 100 MG Capsule PO (20:23)
[2020-09-10] MEDS: Acetaminophen 500 MG Tablet PO (21:56)
[2020-09-11] VITALS (8 sets, daily range): BP systolic 90–101; BP diastolic 48–54; PULSE 88–118; RESP 18; TEMP 36.7–38.2; O2SAT 96–99; BMI 26.6
[2020-09-11] MEDS: Enoxaparin 40 MG/0.4 ML Syringe SC (06:17)
[2020-09-11] MEDS: 0.9% Saline Lock 10 ML Syringe IV ×2 (06:18→23:24)
[2020-09-11 06:34] LABS: Hematocrit 33.3 % (37-47); Hemoglobin 10.2 g/dL (12.0-15.0); Mean Corp Hgb Conc 30.6 g/dL (32-36); Mean Corpuscular Hgb 26.2 pg (27.0-32.0); Mean Corpuscular Volume 85.4 fL (81-99); Mean Platelet Vol. 9.4 fl (6.2-12.0); Platelet Count 307 K/mm3 (150-450); RBC Distribution Width CV 15.7 % (11.6-14.6); White Blood Count 11.4 K/mm3 (4.4-11.0)
[2020-09-11 07:02] LABS: Anion Gap 2 (5-15); BUN 8 mg/dL (7-18); BUN/Creat Ratio 26.8 RATIO (10-20); Calcium,Total 7.9 mg/dL (8.5-10.1); Chloride 105 mmol/L (98-107); EST Glomerular Filtration Rate 239 mL/min (>60); Est Glom Filt Rate - Afr Amer 289 mL/min (>60); Estimated Creatinine Clearance 181.81 ml/min; Glucose 87 mg/dL (74-106); Potassium 3.9 mmol/L (3.5-5.1); Prealbumin 16.9 mg/dL (20.0-40.0); Sodium Level 139 mmol/L (136-145)
--- NOTE | 2020-09-11 08:19 | NURSING ---
In to talk with patient. ostomy appliance is intact. small amount of formed brown stool in the appliance. will discuss plan for dressing change with Dr Dougherty. typically leaves the dressing in place post op day #1 and changes dressing POD#2. pt denies further needs at this time. will follow.
[2020-09-11] MEDS: Acetaminophen 500 MG Tablet PO ×2 (08:57→14:33)
[2020-09-11] MEDS: Baclofen 10 MG Tablet 20 MG PO ×3 (09:24→21:12)
[2020-09-11] MEDS: Docusate Sodium 100 MG Capsule PO ×2 (09:26→21:13)
--- NOTE | 2020-09-11 10:55 | CASEMGMT ---
RAMÓN HART Face to Face with patient for initial transition planning/care coordination assessment. RN CM introduced self and role at [facility]. Patient lying in bed, alert and oriented. Patient willing to participate in assessment and is able to answer all questions appropriately. Care providers, pharmacy, and demographics verified. Patient wishes to discharge home, with resumption of HHC with [facility]. Patient states she has no further needs or concerns at this time. CM to follow for discharge planning needs that may arise. PCP: Cam Specialists: Ladonna Alcantar Pharmacy: [facility] [place] Insurance: [place] secure Medicare Prescription Benefit: yes Living Will/HPOA: none LNOK: Living Arrangements: Patient lives with in a single story home with ramp to enter the home. Patient states assists patient with ADLs. Transportation: DME/HHC: [facility] has shower chair, hospital bed with low air mattress, and wheelchair. Patient state she currently has services with [facility]. Disposition Plan: Patient to discharge home with resumption of HHC, family support, and follow-up plans in place. Edelmira KAUR, RN, CM
[2020-09-11] MEDS: Nystatin Powder 15gm Bottle 1 APPLIC TOPICAL ×2 (11:56→21:12)
[2020-09-11] MEDS: Lactated Ringers 1,000 ML 100 ML IV (11:57)
--- NOTE | 2020-09-11 13:47 | PCM.PN.SRG ---
Subjective: Postop #1 Patient is resting comfortably. - Physical Exam Vitals/I&O's: Vital Signs Temp Pulse Resp BP Pulse Ox 98.1 F 98 18 99/54 L 98 09/11/20 08:30 09/11/20 08:30 09/11/20 08:30 09/11/20 08:30 09/11/20 08:30 Oxygen Flow Rate (L/min) 2 Oxygen Delivery Method Room Air Weight: 170 lb 0.01 oz Body Mass Index (BMI) 26.6 Intake and Output for Last 24 Hours 09/09/20 09/10/20 09/11/20 23:59 23:59 23:59 Intake Total 3231 / 3231 2157 / 2157 Output Total 1320 / 1320 1790 / 1790 Balance 1910 / 1910 367 / 367 Drainage 195 ml yesterday, 140 ml today. General: Alert, Oriented x3 HEENT: PERRLA, EOMI Oral: Moist Mucosa Neck: Supple Abdomen: Soft, Non-Distended Skin: Incision - dressing is dry. No drainage noted on dressing. Will change dressing tomorrow. Neurological: Cranial nerves II-XII grossly intact Psych/Mental Status: Normal Affect, Appropriate Microbiology Past 72 Hours 09/10/20 12:52 Bone - Ischium Gram Stain - Preliminary 09/10/20 12:52 Bone - Ischium Wound Culture - Preliminary No growth-Final to follow 09/10/20 12:50 Tissue - Ischium Gram Stain - Final 09/10/20 12:50 Tissue - Ischium Wound Culture - Preliminary Gram positive organism Laboratory Results 09/11/20 06:15: WBC 11.4 H, RBC 3.90 L, Hgb 10.2 L, Hct 33.3 L, MCV 85.4, MCH 26.2 L, MCHC 30.6 L, RDW Std Deviation 49.0 H, RDW Coeff of Homer 15.7 H, Plt Count 307, MPV 9.4 09/11/20 06:15: Sodium 139, Potassium 3.9, Chloride 105, Carbon Dioxide 32.0, Anion Gap 2 L, BUN 8, Creatinine 0.30 L, Estim Creat Clear Calc 181.81, Est GFR (MDRD) Af Amer 289, Est GFR (MDRD) Non-Af 239, BUN/Creatinine Ratio 26.8 H, Glucose 87, Calcium 7.9 L, Prealbumin 16.9 L Current Medications Acetaminophen (Acetaminophen 500 Mg Tablet) 500 mg PO Q4H PRN PRN PRN Reason: Pain 1-10 or Fever Last Admin: 09/11/20 08:57 Dose: 500 mg Documented by: Baclofen (Baclofen 10 Mg Tablet) 20 mg PO TID [facility] Last Admin: 09/11/20 09:24 Dose: 20 mg Documented by: Diazepam (Diazepam 5 Mg Tablet) 5 mg PO 4X/DAY PRN PRN PRN Reason: SPASMS Docusate Sodium (Docusate Sodium 100 Mg Capsule) 100 mg PO BID [facility] Last Admin: 09/11/20 09:26 Dose: 100 mg Documented by: Enoxaparin Sodium (Enoxaparin 40 Mg/0.4 Ml Syringe) 40 mg SC DAILY@0600 [facility] Last Admin: 09/11/20 06:17 Dose: 40 mg Documented by: Heparin Sodium (Beef Lung) (Heparin Pf Lock 10 Units/Ml 50 Units/5 Ml Syringe) 50 units IV UD PRN PRN Reason: Port-a-Cath (VAD)Heparin Flush Hydromorphone HCl (Hydromorphone 0.5 Mg/0.5 Ml Syringe) 0.5 mg IV Q4H PRN PRN PRN Reason: Pain Score 6-10 Ampicillin Sodium/Sulbactam (Sodium 3 gm/ Sodium Chloride) 112 mls @ 150 mls/hr IV Q6 [facility] Last Admin: 09/11/20 11:56 Dose: 150 mls/hr Documented by: Lactated Ringer's () 1,000 mls @ 100 mls/hr IV .Q10H [facility] Last Admin: 09/11/20 11:57 Dose: 100 mls/hr Documented by: Nutritional Formula (Lactose Free) (Ensure Clear 120 Ml Liquid) 120 ml PO 4X/DAY [facility] Nystatin (Nystatin Powder 15gm Bottle) 1 applic TOPICAL BID [facility]; Protocol Last Admin: 09/11/20 11:56 Dose: 1 applicatio Documented by: Ondansetron HCl (Ondansetron 4 Mg/2 Ml Vial) 4 mg IV Q6H PRN PRN PRN Reason: NAUSEA Oxycodone HCl (Oxycodone 5 Mg Tablet) 5 mg PO Q4H PRN PRN PRN Reason: Pain Score 4-5 Promethazine HCl (Promethazine 25 Mg Tablet) 25 mg PO Q4H PRN PRN PRN Reason: NAUSEA/VOMITING Sodium Chloride (0.9% Saline Lock 10 Ml Syringe) 10 - 40 ml IV UD PRN PRN Reason: Port-a-Cath (VAD) Flush Last Admin: 09/11/20 06:18 Dose: 10 ml Documented by: Sodium Chloride (0.9 % Nacl (Sterile) Posiflush 10 Ml) 10 - 40 ml IV UD PRN PRN Reason: Port access or dressing change Medical Necessity - Tobacco Use Smoking Status: Never smoker Assessment/Plan All Active Problems Other complications of skin graft (allograft) (autograft) (Acute) Decubitus ulcer of coccygeal region, stage 2 (Acute) Encounter for adjustment and management of vascular access device (Acute) History of breast cancer (Acute) Leukocytosis (Acute) Sepsis (Acute) 1. Recurrent right ischial pressure sore, Stage IV, with incisional breakdown medially after myocutaneous flap in 05/18. 2. Osteomyelitis. 3. Multiple sclerosis. 4. s/p excision recurrent right ischial pressure sore, Stage IV, with partial ostectomy for osteomyelitis and reconstruction with right hamstrings V-Y myocutaneous advancement flap. 5. Anemia of chronic disease, acute on chronic, with expected blood loss from surgery. Patient is resting comfortably. Continue Unasyn. Operative culture shows Gram positive organism. Prealbumin was 16.9. Encourage nutritional supplementation with protein to help the healing process. She is having intermittent headache. Increased Tylenol. Will change the dressing tomorrow. Hgb was 10.2. She has anemia of chronic disease, acute of chronic. Operative blood loss was 150 ml which was expected.
[2020-09-11] MEDS: Ensure Clear 120 ML Liquid PO ×3 (14:33→21:16)
--- NOTE | 2020-09-11 20:48 | RAD_ITS ---
STUDY: X-RAY CHEST REASON FOR EXAM: Female, 65 years old. FEVER POST OP. PATIENT HAD RT ISCHIA PRESSURE SORE WOUND CLOSURE. PATIENT POSITION WAS COMPROMISED DUE TO SORE/WOUND. BEST POSSIBLE TECHNIQUE: Single AP portable view x2 of the chest. COMPARISON: June 12, 2020 chest x-ray FINDINGS: There is a right-sided portacatheter tip is in the superior vena cava. The patient is scoliotic. The lungs appear grossly clear without focal consolidation. The patchy density seen in the right lower lobe appears to resolve when compared to the prior study. There is postoperative change in the right peripheral chest wall/axilla.. There is no demonstrated pleural abnormality. Normal size heart. Normal mediastinum and yfn. Normal visualized pulmonary arteries. There is atherosclerotic calcification of the aortic arch with tortuosity. There are diffuse degenerative changes of the visualized thoracic spine. Normal visualized ribs, clavicles, and shoulders. There is no demonstrated abnormality of the visualized soft tissue structures of the upper abdomen. RAD/Chest 1 View (Portable) IMPRESSION: Scoliosis stable chest. Improved aeration of the lungs since prior study. Postoperative change right axilla. Port-A-Cath. Electronically Signed: Angelica Vang MD at 23:08 EDT Tel , Service support ,
[2020-09-11] MEDS: Acetaminophen 500 MG Tablet 1000 MG PO (21:11)
[2020-09-11 21:58] LABS: Anion Gap 6 (5-15); BUN 12 mg/dL (7-18); BUN/Creat Ratio 29.3 RATIO (10-20); Chloride 106 mmol/L (98-107); Creatinine, Serum 0.41 mg/dL (0.55-1.02); EST Glomerular Filtration Rate 165 mL/min (>60); Est Glom Filt Rate - Afr Amer 200 mL/min (>60); Estimated Creatinine Clearance 133.03 ml/min; Glucose 144 mg/dL (74-106); Potassium 3.1 mmol/L (3.5-5.1); Sodium Level 140 mmol/L (136-145)
[2020-09-11] MEDS: Lactated Ringers 1,000 ML 125 ML IV (23:23)
[2020-09-12 02:24] VITALS: BP 122/65; PULSE 102; RESP 18; TEMP 37.5; O2SAT 96
[2020-09-12] MEDS: Potassium Chloride 10mEq/100mL 10 MEQ/100 ML IV.SOLN. 100 MEQ IV BOLUS ×2 (04:57→06:00)
[2020-09-12] MEDS: Acetaminophen 500 MG Tablet 1000 MG PO ×2 (05:03→17:44)
[2020-09-12] MEDS: Baclofen 10 MG Tablet 20 MG PO ×3 (05:03→22:27)
[2020-09-12] MEDS: Enoxaparin 40 MG/0.4 ML Syringe SC (05:04)
[2020-09-12 05:11] LABS: Bacteria 0 SEEN /hpf (None Seen); Mucous, Urine 0 SEEN /hpf (<or=2+); Squamous Epithelial Cells - UA 0 SEEN /hpf (5-10)
[2020-09-12 05:12] LABS: Color, Urine Yellow (Yellow); Glucose, Dipstick Normal (Normal); Ketone-Dipstick Negative (Negative); Leukocyte Esterase-Dipstick 500 /ul (Negative); Nitrite-Dipstick Negative (Negative); Occult Blood-Urine 50 /ul (Negative); Protein-Dipstick Negative (Negative); Specific Gravity, Urine 1.005 (1.002-1.030); Urine Bilirubin Dipstick Negative (Negative); Urine Clarity Clear (Clear); Urine Urobilinogen Normal (Normal); Urine pH 6.5 (5.0 - 8.0)
[2020-09-12 05:18] LABS: Red Blood Cells-Urine 0-5 SEEN /hpf (0-5); White Blood Cells 0-5 SEEN /hpf (0-5)
[2020-09-12 06:38] LABS: Hematocrit 31.8 % (37-47); Mean Corp Hgb Conc 31.4 g/dL (32-36); Mean Corpuscular Hgb 26.4 pg (27.0-32.0); Mean Corpuscular Volume 83.9 fL (81-99); Mean Platelet Vol. 9.8 fl (6.2-12.0); Platelet Count 282 K/mm3 (150-450); RBC Distribution Width CV 15.9 % (11.6-14.6); RBC Distribution Width SD 48.4 fl (35.1-43.9); Red Blood Count 3.79 M/mm3 (4.2-5.4); White Blood Count 13.6 K/mm3 (4.4-11.0)
--- NOTE | 2020-09-12 09:02 | PCM.PN.SRG ---
Subjective: Postop #2 Patient states her headache is a little better. - Physical Exam Vitals/I&O's: Vital Signs Temp Pulse Resp BP Pulse Ox 99.5 F H 102 H 18 122/65 H 96 09/12/20 02:24 09/12/20 02:24 09/12/20 02:24 09/12/20 02:24 09/12/20 02:24 100.7 F H 09/11/20 22:42 Oxygen Flow Rate (L/min) 2 Oxygen Delivery Method Room Air Weight: 170 lb 0.01 oz Body Mass Index (BMI) 26.6 Intake and Output for Last 24 Hours 09/10/20 09/11/20 09/12/20 23:59 23:59 23:59 Intake Total 3231 / 3231 4831.00 / 4831.00 1227.08 / 1227.08 Output Total 1320 / 1320 4275 / 4275 1750 / 1750 Balance 1911 / 1911 556.00 / 556.00 -522.92 / -522.92 Drainage 275 ml yesterday. General: Alert, Oriented x3 HEENT: EOMI Oral: Moist Mucosa Neck: Supple Lungs: Clear to auscultation Cardiovascular: Regular rate, Regular Rhythm Abdomen: Soft, Non-Distended Skin: Incision - flap incisions are dry and intact. Flap is healing. No clinical evidence of hematoma. Neurological: Cranial nerves II-XII grossly intact Psych/Mental Status: Normal Affect, Appropriate Microbiology Past 72 Hours 09/10/20 12:52 Bone - Ischium Gram Stain - Preliminary 09/10/20 12:52 Bone - Ischium Wound Culture - Preliminary No growth-Final to follow 09/10/20 12:50 Tissue - Ischium Gram Stain - Final 09/10/20 12:50 Tissue - Ischium Wound Culture - Preliminary Gram positive organism Laboratory Results 09/11/20 21:29: Sodium 140, Potassium 3.1 L, Chloride 106, Carbon Dioxide 28.0, Anion Gap 6, BUN 12, Creatinine 0.41 L, Estim Creat Clear Calc 133.03, Est GFR (MDRD) Af Amer 200, Est GFR (MDRD) Non-Af 165, BUN/Creatinine Ratio 29.3 H, Glucose 144 H, Calcium 8.0 L 09/11/20 22:10: Urine Color Yellow, Urine Clarity Clear, Urine pH 6.5, Ur Specific [place] 1.005, Urine Protein Negative, Urine Glucose (UA) Normal, Urine Ketones Negative, Urine Occult Blood 50 H, Urine Nitrite Negative, Urine Bilirubin Negative, Urine Urobilinogen Normal, Ur Leukocyte Esterase 500 H, Urine RBC 0-5 SEEN, Urine WBC 0-5 SEEN, Ur Squamous Epith Cells 0 SEEN, Urine Bacteria 0 SEEN, Urine Mucus 0 SEEN 09/12/20 06:05: WBC 13.6 H, RBC 3.79 L, Hgb 10.0 L, Hct 31.8 L, MCV 83.9, MCH 26.4 L, MCHC 31.4 L, RDW Std Deviation 48.4 H, RDW Coeff of Homer 15.9 H, Plt Count 282, MPV 9.8 Diagnostic Data Chest X-Ray 09/11/20 20:48 IMPRESSION: Scoliosis stable chest. Improved aeration of the lungs since prior study. Postoperative change right axilla. Port-A-Cath. Electronically Signed: Angelica Vang MD at 23:08 EDT Tel , Service support , Current Medications Acetaminophen (Acetaminophen 500 Mg Tablet) 1,000 mg PO Q6H PRN PRN PRN Reason: HEADACHE/FEVER (T>100F) Last Admin: 09/12/20 05:03 Dose: 1,000 mg Documented by: Baclofen (Baclofen 10 Mg Tablet) 20 mg PO TID [facility] Last Admin: 09/12/20 05:03 Dose: 20 mg Documented by: Diazepam (Diazepam 5 Mg Tablet) 5 mg PO 4X/DAY PRN PRN PRN Reason: SPASMS Docusate Sodium (Docusate Sodium 100 Mg Capsule) 100 mg PO BID [facility] Last Admin: 09/11/20 21:13 Dose: 100 mg Documented by: Enoxaparin Sodium (Enoxaparin 40 Mg/0.4 Ml Syringe) 40 mg SC DAILY@0600 [facility] Last Admin: 09/12/20 05:04 Dose: 40 mg Documented by: Heparin Sodium (Beef Lung) (Heparin Pf Lock 10 Units/Ml 50 Units/5 Ml Syringe) 50 units IV UD PRN PRN Reason: Port-a-Cath (VAD)Heparin Flush Hydromorphone HCl (Hydromorphone 0.5 Mg/0.5 Ml Syringe) 0.5 mg IV Q4H PRN PRN PRN Reason: Pain Score 6-10 Lactated Ringer's () 1,000 mls @ 125 mls/hr IV .Q8H [facility]ES[facility] Last Infusion: 09/12/20 05:00 Dose: 0 mls/hr Documented by: Piperacillin Sod/Tazobactam (Sod 3.375 gm/ Sodium Chloride) 50 mls @ 12.5 mls/hr IV Q8 [facility]US Last Admin: 09/12/20 05:04 Dose: 12.5 mls/hr Documented by: Sodium Chloride () 250 mls @ 15 mls/hr IV .[id number] PRN PRN Reason: Saline Flush Last Infusion: 09/12/20 05:04 Dose: 0 mls/hr Documented by: Sodium Chloride () 250 mls @ 15 mls/hr IV .[id number] PRN PRN Reason: Additional IVPB Infusion Metoprolol Tartrate (Metoprolol Tartrate 25 Mg Tablet) 25 mg PO BID [facility] Nutritional Formula (Lactose Free) (Ensure Clear 120 Ml Liquid) 120 ml PO 4X/DAY [facility] Last Admin: 09/11/20 21:16 Dose: 120 ml Documented by: Nystatin (Nystatin Powder 15gm Bottle) 1 applic TOPICAL BID [facility]; Protocol Last Admin: 09/11/20 21:12 Dose: 1 applicatio Documented by: Ondansetron HCl (Ondansetron 4 Mg/2 Ml Vial) 4 mg IV Q6H PRN PRN PRN Reason: NAUSEA Oxycodone HCl (Oxycodone 5 Mg Tablet) 5 mg PO Q4H PRN PRN PRN Reason: Pain Score 4-5 Potassium Chloride (Potassium Chloride 20 Meq Tablet) [facility] Promethazine HCl (Promethazine 25 Mg Tablet) 25 mg PO Q4H PRN PRN PRN Reason: NAUSEA/VOMITING Sodium Chloride (0.9% Saline Lock 10 Ml Syringe) 10 - 40 ml IV UD PRN PRN Reason: Port-a-Cath (VAD) Flush Last Admin: 09/11/20 23:24 Dose: 10 ml Documented by: Sodium Chloride (0.9 % Nacl (Sterile) Posiflush 10 Ml) 10 - 40 ml IV UD PRN PRN Reason: Port access or dressing change Medical Necessity - Tobacco Use Smoking Status: Never smoker Assessment/Plan All Active Problems Other complications of skin graft (allograft) (autograft) (Acute) Decubitus ulcer of coccygeal region, stage 2 (Acute) Encounter for adjustment and management of vascular access device (Acute) History of breast cancer (Acute) Leukocytosis (Acute) Sepsis (Acute) 1. Recurrent right ischial pressure sore, Stage IV, with incisional breakdown medially after myocutaneous flap in 05/18. 2. Osteomyelitis. 3. Multiple sclerosis. 4. s/p excision recurrent right ischial pressure sore, Stage IV, with partial ostectomy for osteomyelitis and reconstruction with right hamstrings V-Y myocutaneous advancement flap. 5. Anemia of chronic disease, acute on chronic, with expected blood loss from surgery. 6. Postop fever, probable atelectasis. 7. Hypopotassiumemia. Patient is resting comfortably. Patient had a temp up to 100.7 last night. Incision is dry and intact. Flap healing satisfactory. No evidence of hematoma. No evidence of infection. CXR was done which showed the lungs appear grossly clear without focal consolidation. The patchy density seen in the right lower lobe appears to resolve when compared to the prior study. Improved aeration of the lungs since prior study. Continue incentive spirometry. Urinalysis was done which was ok. Urine culture is pending. Will change the Unasyn to Zosyn. Has better pulmonary coverage. Operative culture shows Gram positive organism. Prealbumin was 16.9. Encourage nutritional supplementation with protein to help the healing process. She is having intermittent headache. Increased Tylenol. Potassium decreased to 3.1. Gave a potassium rider. Will start potassium supplements twice a day. Will recheck Potassium tomorrow. Hgb is 10.0 down from 10.2. She has anemia of chronic disease, acute of chronic. Operative blood loss was 150 ml which was expected. Will start Iron supplementation. Will recheck Hgb tomorrow.
[2020-09-12 09:30] VITALS: BP 125/57; PULSE 55; RESP 20; TEMP 36.6; O2SAT 97
[2020-09-12 09:44] LABS: Anion Gap 5 (5-15); BUN 6 mg/dL (7-18); BUN/Creat Ratio 22.2 RATIO (10-20); Calcium,Total 8.1 mg/dL (8.5-10.1); Chloride 108 mmol/L (98-107); Creatinine, Serum 0.27 mg/dL (0.55-1.02); EST Glomerular Filtration Rate 267 mL/min (>60); Est Glom Filt Rate - Afr Amer 324 mL/min (>60); Estimated Creatinine Clearance 202.01 ml/min; Glucose 108 mg/dL (74-106); Potassium 3.3 mmol/L (3.5-5.1); Sodium Level 142 mmol/L (136-145)
[2020-09-12] MEDS: Lactated Ringers 1,000 ML 125 ML IV ×2 (09:50→17:43)
[2020-09-12] MEDS: Docusate Sodium 100 MG Capsule PO ×2 (09:53→22:27)
[2020-09-12] MEDS: Nystatin Powder 15gm Bottle 1 APPLIC TOPICAL ×2 (09:53→22:28)
[2020-09-12 10:01] VITALS: BP 125/57; PULSE 55
[2020-09-12] MEDS: Metoprolol Tartrate 25 MG Tablet PO ×2 (10:01→22:27)
[2020-09-12] MEDS: Ensure Clear 120 ML Liquid PO ×2 (10:03→15:00)
[2020-09-12] MEDS: traMADol 50 MG Tablet 100 MG PO ×2 (11:12→19:05)
[2020-09-12 13:00] VITALS: BP 122/56; PULSE 103; RESP 20; TEMP 37.2; O2SAT 98
[2020-09-12 18:52] VITALS: BP 132/65; PULSE 98; RESP 18; TEMP 38.3; O2SAT 97
--- NOTE | 2020-09-12 19:09 | NURSING ---
PT WITH TEMP 101.0. DR ABDALLA CALLED - MESSAGE LEFT.
--- NOTE | 2020-09-12 20:14 | RAD_ITS ---
STUDY: X-RAY CHEST REASON FOR EXAM: Female, 65 years old. FEVER -- PT HAS WOUND TO RIGHT ISCHIA, BEST POSITIONING POSSIBLE TECHNIQUE: Frontal view COMPARISON: 09/11/2020 FINDINGS: There is a RIGHT-sided Port-A-Cath. The tip is in the superior vena cava. Lungs are expanded. There are NO infiltrates, effusions or pneumothoraces. Normal size heart. Normal mediastinum and yfn. Normal visualized pulmonary arteries. Normal visualized aortic arch and descending thoracic aorta. There is a dextroscoliosis of the thoracic spine. Normal visualized ribs, clavicles, and shoulders. There is no demonstrated abnormality of the visualized soft tissue structures of the upper abdomen. RAD/Chest 1 View (Portable) IMPRESSION: There is NO acute cardiopulmonary abnormality. Electronically Signed: Lalit Mccrary MD at 7:31 EDT , Service support ,
[2020-09-12] MEDS: proMETHazine 25 MG Tablet PO (21:39)
[2020-09-12 22:27] VITALS: BP 107/65; PULSE 82
--- NOTE | 2020-09-12 23:16 | PCM.RX.CS ---
Consult Pharmacy has been consulted to manage selected antiobiotic: Vancomycin Type of Consult: New start Suspected Infection: Osteomyelitis Prior Doses of Antibiotics Received/Current Regimen: Medications Vancomycin HCl 1,250 mg/ (Sodium Chloride) 275 mls @ 167 mls/hr IV Q12H [facility]US Discontinued Medications Vancomycin HCl 1,250 mg/ (Sodium Chloride) 275 mls @ 167 mls/hr IV X1 ONE Stop: 09/12/20 23:08 Last Admin: 09/12/20 22:32 Dose: 167 mls/hr Labs: Sodium 142 mmol/L (136-145) 09/12/20 06:05 Potassium 3.3 mmol/L (3.5-5.1) L 09/12/20 06:05 Chloride 108 mmol/L (98-107) H 09/12/20 06:05 Carbon Dioxide 29.0 mmol/L (21.0-32.0) 09/12/20 06:05 Anion Gap 5 (5-15) 09/12/20 06:05 BUN 6 mg/dL (7-18) L 09/12/20 06:05 Creatinine 0.27 mg/dL (0.55-1.02) L 09/12/20 06:05 Est GFR (MDRD) Af Amer 324 mL/min (>60) 09/12/20 06:05 Est GFR (MDRD) Non-Af 267 mL/min (>60) 09/12/20 06:05 BUN/Creatinine Ratio 22.2 RATIO (10-20) H 09/12/20 06:05 Glucose 108 mg/dL (74-106) H 09/12/20 06:05 Microbiology: Microbiology 09/10/20 12:50 Tissue - Ischium Gram Stain - Final 09/10/20 12:50 Tissue - Ischium Wound Culture - Preliminary Gram positive mary 09/10/20 12:52 Bone - Ischium Gram Stain - Final 09/10/20 12:52 Bone - Ischium Wound Culture - Preliminary No growth-Final to follow Weight used for dosin.1 kg Estimated Creatinine Clearance: >100 Goal Trough: 10-15 mcg/mL Pharmacy Plan for Drug Dosing: Pharmacy Service will continue to monitor and adjust dosing as required. Follow-Up Labs: Trough Vancomycin Labs to be done on [date and time ordered]: 09/14/20 @1000
[2020-09-13] VITALS (7 sets, daily range): BP systolic 92–142; BP diastolic 57–71; PULSE 77–98; RESP 18; TEMP 36.6–38.2; O2SAT 97–100
[2020-09-13] MEDS: Acetaminophen 500 MG Tablet 1000 MG PO ×2 (03:28→18:23)
[2020-09-13] MEDS: Lactated Ringers 1,000 ML 125 ML IV ×3 (04:47→22:26)
[2020-09-13] MEDS: Enoxaparin 40 MG/0.4 ML Syringe SC (04:58)
[2020-09-13] MEDS: Baclofen 10 MG Tablet 20 MG PO ×3 (04:58→21:23)
[2020-09-13 06:17] LABS: Hematocrit 30.8 % (37-47); Hemoglobin 9.6 g/dL (12.0-15.0); Mean Corp Hgb Conc 31.2 g/dL (32-36); Mean Corpuscular Hgb 26.1 pg (27.0-32.0); Mean Corpuscular Volume 83.7 fL (81-99); Mean Platelet Vol. 9.6 fl (6.2-12.0); Platelet Count 293 K/mm3 (150-450); RBC Distribution Width CV 15.7 % (11.6-14.6); Red Blood Count 3.68 M/mm3 (4.2-5.4); White Blood Count 16.2 K/mm3 (4.4-11.0)
[2020-09-13 06:38] LABS: Anion Gap 2 (5-15); BUN 8 mg/dL (7-18); BUN/Creat Ratio 35.6 RATIO (10-20); Calcium,Total 8.1 mg/dL (8.5-10.1); Chloride 105 mmol/L (98-107); Creatinine, Serum 0.22 mg/dL (0.55-1.02); EST Glomerular Filtration Rate 330 mL/min (>60); Est Glom Filt Rate - Afr Amer 399 mL/min (>60); Estimated Creatinine Clearance 247.92 ml/min; Glucose 104 mg/dL (74-106); Potassium 3.1 mmol/L (3.5-5.1); Sodium Level 137 mmol/L (136-145)
[2020-09-13] MEDS: Metoprolol Tartrate 25 MG Tablet PO ×2 (10:11→21:10)
[2020-09-13] MEDS: Docusate Sodium 100 MG Capsule PO ×2 (10:11→21:23)
[2020-09-13] MEDS: Nystatin Powder 15gm Bottle 1 APPLIC TOPICAL ×2 (10:12→21:09)
--- NOTE | 2020-09-13 15:35 | PCM.PN.SRG ---
Subjective: Postop #3 Patient is resting comfortably. Her headache is better. - Physical Exam Vitals/I&O's: Vital Signs Temp Pulse Resp BP Pulse Ox 99.1 F 95 18 142/71 H 100 09/13/20 14:22 09/13/20 14:22 09/13/20 14:22 09/13/20 14:22 09/13/20 14:22 101.0 F H 09/12/20 18:52 Oxygen Flow Rate (L/min) 2 Oxygen Delivery Method Room Air Weight: 170 lb 0.01 oz Body Mass Index (BMI) 26.6 Intake and Output for Last 24 Hours 09/11/20 09/12/20 09/13/20 23:59 23:59 23:59 Intake Total 4831.00 / 4831.00 3734.58 / 3734.58 2047.92 / 2047.92 Output Total 4275 / 4275 4727 / 5290 2798 / 2798 Balance 556.00 / 556.00 -992.42 / -1555.42 -750.08 / -750.08 Drainage 77 ml yesterday. General: Alert, Oriented x3 HEENT: PERRLA, EOMI Oral: Moist Mucosa Neck: Supple Lungs: Clear to auscultation Cardiovascular: Regular rate, Regular Rhythm Abdomen: Soft, Non-Distended Skin: Incision - Incisions are dry and intact. Flap is pink and soft and healing satisfactory. No clinical evidence of hematoma. No clinical evidence of infection. Neurological: Cranial nerves II-XII grossly intact Psych/Mental Status: Normal Affect, Appropriate Microbiology Past 72 Hours 09/11/20 22:10 Urine Catheter - Giordano Urine Culture - Final Yeast, not Shyanne albicans 09/10/20 12:52 Bone - Ischium Gram Stain - Final 09/10/20 12:52 Bone - Ischium Wound Culture - Final No growth aerobically. 09/10/20 12:52 Bone - Ischium Anaerobic Culture - Preliminary No growth in 48 hours. 09/10/20 12:50 Tissue - Ischium Gram Stain - Final 09/10/20 12:50 Tissue - Ischium Wound Culture - Final Corynebacterium striatum 09/10/20 12:50 Tissue - Ischium Anaerobic Culture - Preliminary No growth in 48 hours. Laboratory Results 09/13/20 05:50: WBC 16.2 H, RBC 3.68 L, Hgb 9.6 L, Hct 30.8 L, MCV 83.7, MCH 26.1 L, MCHC 31.2 L, RDW Std Deviation 48.0 H, RDW Coeff of Homer 15.7 H, Plt Count 293, MPV 9.6 09/13/20 05:50: Sodium 137, Potassium 3.1 L, Chloride 105, Carbon Dioxide 30.0, Anion Gap 2 L, BUN 8, Creatinine 0.22 L, Estim Creat Clear Calc 247.92, Est GFR (MDRD) Af Amer 399, Est GFR (MDRD) Non-Af 330, BUN/Creatinine Ratio 35.6 H, Glucose 104, Calcium 8.1 L 09/13/20 13:08: COVID-19 ([facility]) Pending Diagnostic Data Chest X-Ray 09/12/20 20:14 IMPRESSION: There is NO acute cardiopulmonary abnormality. Electronically Signed: Lalit Mccrary MD at 7:31 EDT , Service support , Current Medications Acetaminophen (Acetaminophen 500 Mg Tablet) 1,000 mg PO Q6H PRN PRN PRN Reason: HEADACHE/FEVER (T>100F) Last Admin: 09/13/20 03:28 Dose: 1,000 mg Documented by: Baclofen (Baclofen 10 Mg Tablet) 20 mg PO TID [facility] Last Admin: 09/13/20 15:32 Dose: 20 mg Documented by: Diazepam (Diazepam 5 Mg Tablet) 5 mg PO 4X/DAY PRN PRN PRN Reason: SPASMS Docusate Sodium (Docusate Sodium 100 Mg Capsule) 100 mg PO BID [facility] Last Admin: 09/13/20 10:11 Dose: 100 mg Documented by: Enoxaparin Sodium (Enoxaparin 40 Mg/0.4 Ml Syringe) 40 mg SC DAILY@0600 [facility] Last Admin: 09/13/20 04:58 Dose: 40 mg Documented by: Heparin Sodium (Beef Lung) (Heparin Pf Lock 10 Units/Ml 50 Units/5 Ml Syringe) 50 units IV UD PRN PRN Reason: Port-a-Cath (VAD)Heparin Flush Hydromorphone HCl (Hydromorphone 0.5 Mg/0.5 Ml Syringe) 0.5 mg IV Q4H PRN PRN PRN Reason: Pain Score 6-10 Lactated Ringer's () 1,000 mls @ 125 mls/hr IV .Q8H [facility] Last Admin: 09/13/20 14:28 Dose: 125 mls/hr Documented by: Piperacillin Sod/Tazobactam (Sod 3.375 gm/ Sodium Chloride) 50 mls @ 12.5 mls/hr IV Q8 [facility] Last Admin: 09/13/20 14:28 Dose: 12.5 mls/hr Documented by: Sodium Chloride () 250 mls @ 15 mls/hr IV .[id number] PRN PRN Reason: Saline Flush Last Infusion: 09/13/20 01:52 Dose: 15 mls/hr Documented by: Sodium Chloride () 250 mls @ 15 mls/hr IV .[id number] PRN PRN Reason: Additional IVPB Infusion Vancomycin IV Pharmacy to Dose (1 ea/ Sodium Chloride) 500 mls @ 250 mls/hr IV PRN PRN; Protocol PRN Reason: Rx to Dose Vancomycin HCl 1,250 mg/ (Sodium Chloride) 275 mls @ 167 mls/hr IV Q12H [facility] Last Infusion: 09/13/20 11:51 Dose: Infused Documented by: Ketoconazole (Ketoconazole 200 Mg Tablet) 200 mg PO DAILY [facility] Last Admin: 09/13/20 10:12 Dose: 200 mg Documented by: Metoprolol Tartrate (Metoprolol Tartrate 25 Mg Tablet) 25 mg PO BID [facility] Last Admin: 09/13/20 10:11 Dose: 25 mg Documented by: Nutritional Formula (Lactose Free) (Ensure Clear 120 Ml Liquid) 120 ml PO 4X/DAY [facility] Last Admin: 09/13/20 15:33 Dose: Not Given Documented by: Nystatin (Nystatin Powder 15gm Bottle) 1 applic TOPICAL BID [facility]; Protocol Last Admin: 09/13/20 10:12 Dose: 1 applicatio Documented by: Ondansetron HCl (Ondansetron 4 Mg/2 Ml Vial) 4 mg IV Q6H PRN PRN PRN Reason: NAUSEA Oxycodone HCl (Oxycodone 5 Mg Tablet) 5 mg PO Q4H PRN PRN PRN Reason: Pain Score 4-5 Polysaccharide Iron Complex (Iron Polysaccharide Complex 150 Mg Capsule) 150 mg PO DAILYCM [facility] Potassium Chloride (Potassium Chloride 20 Meq Tablet) 20 meq PO BIDCM [facility] Last Admin: 09/13/20 10:11 Dose: 20 meq Documented by: Promethazine HCl (Promethazine 25 Mg Tablet) 25 mg PO Q4H PRN PRN PRN Reason: NAUSEA/VOMITING Last Admin: 09/12/20 21:39 Dose: 25 mg Documented by: Sodium Chloride (0.9% Saline Lock 10 Ml Syringe) 10 - 40 ml IV UD PRN PRN Reason: Port-a-Cath (VAD) Flush Last Admin: 09/11/20 23:24 Dose: 10 ml Documented by: Sodium Chloride (0.9 % Nacl (Sterile) Posiflush 10 Ml) 10 - 40 ml IV UD PRN PRN Reason: Port access or dressing change Tramadol HCl (Tramadol 50 Mg Tablet) 100 mg PO TID PRN PRN PRN Reason: Pain Score 1-3 Last Admin: 09/12/20 19:05 Dose: 100 mg Documented by: Medical Necessity - Tobacco Use Smoking Status: Never smoker Assessment/Plan All Active Problems Other complications of skin graft (allograft) (autograft) (Acute) Decubitus ulcer of coccygeal region, stage 2 (Acute) Encounter for adjustment and management of vascular access device (Acute) History of breast cancer (Acute) Leukocytosis (Acute) Sepsis (Acute) 1. Recurrent right ischial pressure sore, Stage IV, with incisional breakdown medially after myocutaneous flap in 05/18. 2. Osteomyelitis. 3. Multiple sclerosis. 4. s/p excision recurrent right ischial pressure sore, Stage IV, with partial ostectomy for osteomyelitis and reconstruction with right hamstrings V-Y myocutaneous advancement flap. 5. Anemia of chronic disease, acute on chronic, with expected blood loss from surgery. 6. Postop fever, probable atelectasis. 7. Hypopotassiumemia. 8. Chronic UTI, has indwelling giordano catheter. Patient is resting comfortably. Patient had a temp up to 101.0. COVID test is pending. Incision is dry and intact. Flap healing satisfactory. No evidence of hematoma. No evidence of infection. Repeat CXR was done which showed no acute cardiopulmonary abnormality. Continue incentive spirometry. Urinalysis was done which was ok. Urine culture showing Yeast, not Shyanne albicans. She is on Nizoral. She is currently on Zosyn. Will add Vancomycin. Operative culture shows Corynebacterium striatum. Prealbumin was 16.9. Encourage nutritional supplementation with protein to help the healing process. Her headache has improved with the increased Tylenol. Potassium is 3.1. Continue potassium supplements twice a day. Will recheck Potassium tomorrow. Hgb is 9.6 down from 10.0. She has anemia of chronic disease, acute of chronic. Operative blood loss was 150 ml which was expected. Continue Iron supplementation. Will recheck Hgb tomorrow.
[2020-09-13] MEDS: Ensure Clear 120 ML Liquid PO (18:28)
[2020-09-14 02:20] VITALS: PULSE 90
[2020-09-14] MEDS: Acetaminophen 500 MG Tablet 1000 MG PO ×2 (03:16→13:14)
[2020-09-14] MEDS: Enoxaparin 40 MG/0.4 ML Syringe SC (06:05)
[2020-09-14] MEDS: Baclofen 10 MG Tablet 20 MG PO ×3 (06:05→21:53)
[2020-09-14 07:27] LABS: Hematocrit 30.1 % (37-47); Hemoglobin 9.5 g/dL (12.0-15.0); Mean Corp Hgb Conc 31.6 g/dL (32-36); Mean Corpuscular Volume 85.5 fL (81-99); Mean Platelet Vol. 10.4 fl (6.2-12.0); Platelet Count 328 K/mm3 (150-450); RBC Distribution Width CV 15.9 % (11.6-14.6); RBC Distribution Width SD 49.4 fl (35.1-43.9); Red Blood Count 3.52 M/mm3 (4.2-5.4); White Blood Count 11.5 K/mm3 (4.4-11.0)
[2020-09-14 07:58] LABS: Anion Gap 2 (5-15); BUN 7 mg/dL (7-18); BUN/Creat Ratio 23.8 RATIO (10-20); Calcium,Total 8.4 mg/dL (8.5-10.1); Chloride 106 mmol/L (98-107); Creatinine, Serum 0.29 mg/dL (0.55-1.02); EST Glomerular Filtration Rate 242 mL/min (>60); Est Glom Filt Rate - Afr Amer 293 mL/min (>60); Estimated Creatinine Clearance 188.07 ml/min; Glucose 85 mg/dL (74-106); Potassium 3.6 mmol/L (3.5-5.1); Sodium Level 139 mmol/L (136-145)
[2020-09-14 08:00] VITALS: BP 126/82; PULSE 88; RESP 16; TEMP 36.8; O2SAT 99
[2020-09-14] MEDS: Lactated Ringers 1,000 ML 125 ML IV ×2 (08:17→17:56)
[2020-09-14] MEDS: Ondansetron 4 MG/2 ML Vial IV (10:21)
[2020-09-14 11:04] LABS: Vancomycin, Trough Level 9.5 ug/mL (5.0-15.0)
[2020-09-14] MEDS: Iron Polysaccharide Complex 150 MG CAPSULE PO (11:07)
[2020-09-14] MEDS: Nystatin Powder 15gm Bottle 1 APPLIC TOPICAL ×2 (11:08→21:54)
[2020-09-14] MEDS: Docusate Sodium 100 MG Capsule PO ×2 (11:08→21:53)
[2020-09-14] MEDS: Metoprolol Tartrate 25 MG Tablet PO ×2 (11:08→21:53)
--- NOTE | 2020-09-14 13:58 | PCM.RX.CS ---
Consult Pharmacy has been consulted to manage selected antiobiotic: Vancomycin Type of Consult: Follow-up Labs: Sodium 139 mmol/L (136-145) 09/14/20 07:03 Potassium 3.6 mmol/L (3.5-5.1) 09/14/20 07:03 Chloride 106 mmol/L (98-107) 09/14/20 07:03 Carbon Dioxide 31.0 mmol/L (21.0-32.0) 09/14/20 07:03 Anion Gap 2 (5-15) L 09/14/20 07:03 BUN 7 mg/dL (7-18) 09/14/20 07:03 Creatinine 0.29 mg/dL (0.55-1.02) L 09/14/20 07:03 Est GFR (MDRD) Af Amer 293 mL/min (>60) 09/14/20 07:03 Est GFR (MDRD) Non-Af 242 mL/min (>60) 09/14/20 07:03 BUN/Creatinine Ratio 23.8 RATIO (-20) H 09/14/20 07:03 Glucose 85 mg/dL (74-106) 09/14/20 07:03 Vancomycin Trough 9.5 ug/mL (5.0-15.0) 09/14/20 10:12 Microbiology: Microbiology 09/11/20 22:10 Urine Catheter - Patino Urine Culture - Final Yeast, not Shyanne albicans 09/10/20 12:52 Bone - Ischium Gram Stain - Final 09/10/20 12:52 Bone - Ischium Wound Culture - Final No growth aerobically. 09/10/20 12:52 Bone - Ischium Anaerobic Culture - Preliminary No growth in 48 hours. 09/10/20 12:50 Tissue - Ischium Gram Stain - Final 09/10/20 12:50 Tissue - Ischium Wound Culture - Final Corynebacterium striatum 09/10/20 12:50 Tissue - Ischium Anaerobic Culture - Preliminary No growth in 48 hours. Goal Trough: 10-15 mcg/mL Pharmacy Plan for Drug Dosing: VANCOMYCIN LEVEL RECEIVED Current Vancomycin Dose: 1250mg IV Q12hr Number of Doses Received: 4 (3 prior to vancomycin trough) Vancomycin Level: 9.5 Hours Since Last Dose: 11.75hr Renal Function: 0.29 Renal Function Trend: STABLE Lab/Micro: NO NEW RESULTS Vancomycin Plan/Comments: Goal trough 10-15, trough drawn appropriately. Given that trough is so close to goal, will continue current dosing and draw another trough in 4 doses to ensure pt within therapeutic range. If subtherapeutic at that time, will consider increasing dose. Pending Level: 09/16/20 @1000 Pharmacy Service will continue to monitor and adjust dosing as required.
[2020-09-14 15:45] VITALS: BP 116/72; PULSE 90; RESP 16; TEMP 36.8; O2SAT 100
--- NOTE | 2020-09-14 18:56 | PN.SURG_ITS ---
Subjective: Postop #4 Patient is resting comfortably. - Physical Exam Vitals/I&O's: Vital Signs Temp Pulse Resp BP Pulse Ox 98.2 F 90 16 116/72 100 09/14/20 15:45 09/14/20 15:45 09/14/20 15:45 09/14/20 15:45 09/14/20 15:45 100.7 F H 09/13/20 18:00 Oxygen Flow Rate (L/min) 2 Oxygen Delivery Method Room Air Weight: 170 lb 0.01 oz Body Mass Index (BMI) 26.6 Intake and Output for Last 24 Hours 09/12/20 09/13/20 09/14/20 23:59 23:59 23:59 Intake Total 3734.58 / 3734.58 3929.17 / 4579.17 5629.33 / 5629.33 Output Total 4727 / 5290 5133 / 7468 8550 / 8550 Balance -992.42 / -1555.42 -1203.83 / -2888.83 -2920.67 / -2920.67 Drainage 158 ml yesterday. General: Alert, Oriented x3 HEENT: PERRLA, EOMI Oral: Moist Mucosa Neck: Supple Lungs: Clear to auscultation Cardiovascular: Regular rate, Regular Rhythm Abdomen: Soft, Non-Distended Skin: Incision - incisions dry and intact. Flap is healing satisfactory. No clinical evidence of hematoma. No clinical evidence of infection. Neurological: Cranial nerves II-XII grossly intact Psych/Mental Status: Normal Affect, Appropriate Microbiology Past 72 Hours 09/11/20 22:10 Urine Catheter - Giordano Urine Culture - Final Yeast, not Shyanne albicans 09/10/20 12:52 Bone - Ischium Gram Stain - Final 09/10/20 12:52 Bone - Ischium Wound Culture - Final No growth aerobically. 09/10/20 12:52 Bone - Ischium Anaerobic Culture - Preliminary No growth in 48 hours. 09/10/20 12:50 Tissue - Ischium Gram Stain - Final 09/10/20 12:50 Tissue - Ischium Wound Culture - Final Corynebacterium striatum 09/10/20 12:50 Tissue - Ischium Anaerobic Culture - Preliminary No growth in 48 hours. Laboratory Results 09/14/20 07:03: WBC 11.5 H, RBC 3.52 L, Hgb 9.5 L, Hct 30.1 L, MCV 85.5, MCH 27.0, MCHC 31.6 L, RDW Std Deviation 49.4 H, RDW Coeff of Homer 15.9 H, Plt Count 328, MPV 10.4 09/14/20 07:03: Sodium 139, Potassium 3.6, Chloride 106, Carbon Dioxide 31.0, Anion Gap 2 L, BUN 7, Creatinine 0.29 L, Estim Creat Clear Calc 188.07, Est GFR (MDRD) Af Amer 293, Est GFR (MDRD) Non-Af 242, BUN/Creatinine Ratio 23.8 H, Glu cose 85, Calcium 8.4 L 09/14/20 10:12: Vancomycin Trough 9.5 Current Medications Acetaminophen (Acetaminophen 500 Mg Tablet) 1,000 mg PO Q6H PRN PRN PRN Reason: HEADACHE/FEVER (T>100F) Last Admin: 09/14/20 13:14 Dose: 1,000 mg Documented by: Baclofen (Baclofen 10 Mg Tablet) 20 mg PO TID [facility] Last Admin: 09/14/20 13:15 Dose: 20 mg Documented by: Diazepam (Diazepam 5 Mg Tablet) 5 mg PO 4X/DAY PRN PRN PRN Reason: SPASMS Docusate Sodium (Docusate Sodium 100 Mg Capsule) 100 mg PO BID [facility] Last Admin: 09/14/20 11:08 Dose: 100 mg Documented by: Enoxaparin Sodium (Enoxaparin 40 Mg/0.4 Ml Syringe) 40 mg SC DAILY@0600 [facility] Last Admin: 09/14/20 06:05 Dose: 40 mg Documented by: Heparin Sodium (Beef Lung) (Heparin Pf Lock 10 Units/Ml 50 Units/5 Ml Syringe) 50 units IV UD PRN PRN Reason: Port-a-Cath (VAD)Heparin Flush Hydromorphone HCl (Hydromorphone 0.5 Mg/0.5 Ml Syringe) 0.5 mg IV Q4H PRN PRN PRN Reason: Pain Score 6-10 Lactated Ringer's () 1,000 mls @ 125 mls/hr IV .Q8H [facility] Last Admin: 09/14/20 17:56 Dose: 125 mls/hr Documented by: Piperacillin Sod/Tazobactam (Sod 3.375 gm/ Sodium Chloride) 50 mls @ 12.5 mls/hr IV Q8 [facility] Last Infusion: 09/14/20 17:15 Dose: Infused Documented by: Sodium Chloride () 250 mls @ 15 mls/hr IV .[id number] PRN PRN Reason: Saline Flush Last Infusion: 09/14/20 17:15 Dose: 15 mls/hr Documented by: Sodium Chloride () 250 mls @ 15 mls/hr IV .[id number] PRN PRN Reason: Additional IVPB Infusion Vancomycin IV Pharmacy to Dose (1 ea/ Sodium Chloride) 500 mls @ 250 mls/hr IV PRN PRN; Protocol PRN Reason: Rx to Dose Vancomycin HCl 1,250 mg/ (Sodium Chloride) 275 mls @ 167 mls/hr IV Q12H [facility] Last Infusion: 09/14/20 12:53 Dose: Infused Documented by: Ketoconazole (Ketoconazole 200 Mg Tablet) 200 mg PO DAILY [facility] Last Admin: 09/14/20 11:09 Dose: 200 mg Documented by: Metoprolol Tartrate (Metoprolol Tartrate 25 Mg Tablet) 25 mg PO BID [facility] Last Admin: 09/14/20 11:08 Dose: 25 mg Documented by: Nutritional Formula (Lactose Free) (Ensure Clear 120 Ml Liquid) 120 ml PO 4X/DAY [facility] Last Admin: 09/14/20 17:55 Dose: Not Given Documented by: Nystatin (Nystatin Powder 15gm Bottle) 1 applic TOPICAL BID [facility]; Protocol Last Admin: 09/14/20 11:08 Dose: 1 applicatio Documented by: Ondansetron HCl (Ondansetron 4 Mg/2 Ml Vial) 4 mg IV Q6H PRN PRN PRN Reason: NAUSEA Last Admin: 09/14/20 10:21 Dose: 4 mg Documented by: Oxycodone HCl (Oxycodone 5 Mg Tablet) 5 mg PO Q4H PRN PRN PRN Reason: Pain Score 4-5 Polysaccharide Iron Complex ([facility] Polysaccharide [facility] 150 [facility]) [facility] Admin: 09/14/20 11:07 Dose: 150 mg Documented by: Potassium Chloride (Potassium Chloride 20 Meq Tablet) [facility] Last Admin: 09/14/20 17:56 Dose: 20 meq Documented by: Promethazine HCl (Promethazine 25 Mg Tablet) 25 mg PO Q4H PRN PRN PRN Reason: NAUSEA/VOMITING Last Admin: 09/12/20 21:39 Dose: 25 mg Documented by: Sodium Chloride (0.9% Saline Lock 10 Ml Syringe) 10 - 40 ml IV UD PRN PRN Reason: Port-a-Cath (VAD) Flush Last Admin: 09/11/20 23:24 Dose: 10 ml Documented by: Sodium Chloride (0.9 % Nacl (Sterile) Posiflush 10 Ml) 10 - 40 ml IV UD PRN PRN Reason: Port access or dressing change Tramadol HCl (Tramadol 50 Mg Tablet) 100 mg PO TID PRN PRN PRN Reason: Pain Score 1-3 Last Admin: 09/12/20 19:05 Dose: 100 mg Documented by: Medical Necessity - Tobacco Use Smoking Status: Never smoker Assessment/Plan All Active Problems Other complications of skin graft (allograft) (autograft) (Acute) Decubitus ulcer of coccygeal region, stage 2 (Acute) Encounter for adjustment and management of vascular access device (Acute) History of breast cancer (Acute) Leukocytosis (Acute) Sepsis (Acute) 1. Recurrent right ischial pressure sore, Stage IV, with incisional breakdown medially after myocutaneous flap in 05/18. 2. Osteomyelitis. 3. Multiple sclerosis. 4. s/p excision recurrent right ischial pressure sore, Stage IV, with partial ostectomy for osteomyelitis and reconstruction with right hamstrings V-Y myocutaneous advancement flap. 5. Anemia of chronic disease, acute on chronic, with expected blood loss from surgery. 6. Postop fever, probable atelectasis. 7. Hypopotassiumemia. 8. Chronic UTI, has indwelling giordano catheter. Patient is resting comfortably. Patient had a temp up to 100.7. COVID test is negative. WBC improved to 11.5 down from 16.2. She is currently on Zosyn and Vancomycin. Operative culture shows Corynebacterium striatum. Incision is dry and intact. Flap healing satisfactory. No evidence of hematoma. No evidence of infection. Repeat CXR was done which showed no acute cardiopulmonary abnormality. Continue incentive spirometry. Urinalysis was done which was ok. Urine culture showing Yeast, not Shyanne albicans. She is on Nizoral. Prealbumin was 16.9. Encourage nutritional supplementation with protein to help the healing process. Her headache has improved with the increased Tylenol. Potassium has improved to 3.6 up from 3.1. Continue potassium supplements twice a day. Will recheck Potassium tomorrow. Hgb is 9.5 down from 9.6. She has anemia of chronic disease, acute of chronic. Operative blood loss was 150 ml which was expected. Continue Iron supplementation. Will recheck Hgb tomorrow. If WBC continues to improve and she remains afebrile, will consider discharge home in next 1-2 days.
[2020-09-14 21:45] VITALS: BP 106/78; PULSE 95; RESP 18; TEMP 37.4; O2SAT 100
[2020-09-14 21:53] VITALS: PULSE 95
[2020-09-15 03:10] VITALS: BP 99/53; PULSE 91; RESP 14; TEMP 37.2; O2SAT 95
[2020-09-15] MEDS: Acetaminophen 500 MG Tablet 1000 MG PO ×2 (03:14→13:19)
[2020-09-15] MEDS: Lactated Ringers 1,000 ML 125 ML IV (03:14)
[2020-09-15 05:33] LABS: Hematocrit 28.8 % (37-47); Mean Corp Hgb Conc 31.3 g/dL (32-36); Mean Corpuscular Hgb 26.7 pg (27.0-32.0); Mean Corpuscular Volume 85.5 fL (81-99); Mean Platelet Vol. 9.4 fl (6.2-12.0); Platelet Count 371 K/mm3 (150-450); RBC Distribution Width CV 15.8 % (11.6-14.6); RBC Distribution Width SD 49.3 fl (35.1-43.9); Red Blood Count 3.37 M/mm3 (4.2-5.4); White Blood Count 9.2 K/mm3 (4.4-11.0)
[2020-09-15] MEDS: Baclofen 10 MG Tablet 20 MG PO ×2 (05:35→13:19)
[2020-09-15] MEDS: 0.9% Saline Lock 10 ML Syringe IV ×2 (05:36→15:32)
[2020-09-15] MEDS: Enoxaparin 40 MG/0.4 ML Syringe SC (05:36)
[2020-09-15 05:47] LABS: Anion Gap 4 (5-15); BUN 9 mg/dL (7-18); BUN/Creat Ratio 28.1 RATIO (10-20); Chloride 106 mmol/L (98-107); Creatinine, Serum 0.32 mg/dL (0.55-1.02); EST Glomerular Filtration Rate 220 mL/min (>60); Est Glom Filt Rate - Afr Amer 266 mL/min (>60); Estimated Creatinine Clearance 170.44 ml/min; Glucose 90 mg/dL (74-106); Potassium 3.7 mmol/L (3.5-5.1); Sodium Level 140 mmol/L (136-145)
[2020-09-15 07:50] VITALS: BP 124/66; PULSE 85; RESP 16; TEMP 36.5; O2SAT 100
[2020-09-15] MEDS: Docusate Sodium 100 MG Capsule PO (10:40)
[2020-09-15] MEDS: Iron Polysaccharide Complex 150 MG CAPSULE PO (10:40)
[2020-09-15 10:49] VITALS: PULSE 66
[2020-09-15] MEDS: Metoprolol Tartrate 25 MG Tablet PO (10:49)
[2020-09-15] MEDS: Nystatin Powder 15gm Bottle 1 APPLIC TOPICAL (10:49)
--- NOTE | 2020-09-15 12:55 | DCINST_ITS ---
You will use the following diet at home:: No restrictions, Other - encourage nutritional supplementation with protein to help the healing process. Discharge Activity: May Take a Tub Bath - after the drains are removed. May resume sexual activity in: 6-8 weeks Weight Bearing Status: No weight bearing Call your doctor if your incision/area has: Continuous Slow Oozing, Sudden Increased Bleeding, Increased Pain/ Swelling, Increased Redness, Foul Smelling Discharge, Swelling at the incision site Call your doctor if you observe: Fever of 101 or Higher, Coldness, Increased Pain, Shortness of breath, Chest pain Suture Line Care: - - apply antibiotic ointment to suture line daily followed by kerlix gauze and ABD pads and compression yolanda wrap. Change Dressing in (Days):: 1 - dressing changes daily Cleanse incision/area with: - - may get incisions wet with soap and water after the drains are removed. Catheter: Patino to leg bag - change once a month and prn. Drain: Suction - pelon drain x2 to bulb suction. empty and record output daily. Pending Tests on Discharge: Will check a Hgb and K level after discharge (2-3 weeks). Allergies/Adverse Reactions: Allergies bacitracin [From Neosporin ([id number])] Allergy (Verified 09/10/20 10:23) Rash neomycin [From Neosporin ([id number])] Allergy (Verified 09/10/20 10:23) Rash ondansetron [From Zofran] Allergy (Verified 09/10/20 10:23) palpitations polymyxin B [From Neosporin ([id number])] Allergy (Verified 09/10/20 10:23) Rash Sulfa (Sulfonamide Antibiotics) Allergy (Verified 09/10/20 10:23) Rash Medications to take at Discharge Ascorbic Acid [Vitamin C] 1 tab PO BID 11/03/19 Baclofen 1 - 2 tab PO Q8H PRN PRN 11/03/19 Cholecalciferol (VIT D3) [Vitamin D3] 1,000 unit PO DINNER 11/03/19 Cholestyramine (with Sugar) [Cholestyramine Powder] 1 packet PO DAILY 11/03/19 Cranberry Fruit Extract [Cranberry] 200 mg PO DINNER 11/03/19 Letrozole 1 tab PO DAILY 11/03/19 Oxybutynin [Ditropan] 2 tab PO BID 11/03/19 Acetaminophen [Tylenol Tablet] 650 mg PO Q6H PRN PRN tab 11/08/19 Nitrofurantoin Macrocrystal [Macrodantin] 50 mg PO DINNER 04/25/20 Pro Stat 5 ml PO DINNER 04/25/20 L. Rhamnosus GG/Inulin [Culturelle Digest 10B Cell Cap] 2 ea PO QHS 05/26/20 Magnesium Hydroxide [Milk Of Magnesia] 30 ml PO PRN PRN 05/26/20 Metoprolol Tartrate [Lopressor (beta alex)] 25 mg PO BID 05/26/20 Nystatin 1 applic TOPICAL BID 05/26/20 Acetic Acid 60 ml IR QHS 09/02/20 Docusate Sodium [Colace] 100 mg PO DAILY 09/02/20 Amox/Clavulanate Tablet [Augmentin Tablet] 500 mg PO Q12H #42 tab 09/15/20 Baclofen [Lioresal] 20 mg PO TID tab 09/15/20 Docusate Sodium [Colace] 100 mg PO BID cap 09/15/20 Ensure Clear 120 ml PO 4X/DAY liquid 09/15/20 Iron Polysaccharide Complex [Ferrex 150] 150 mg PO DAILYCM #30 cap 09/15/20 Ketoconazole 200 mg PO DAILY #30 tab 09/15/20 Ketoconazole [Nizoral] 200 mg PO DAILY tab 09/15/20 Metoprolol Tartrate [Lopressor (beta alex)] 25 mg PO BID tab 09/15/20 Nystatin Powder [Mycostatin Powder] 1 applic TOPICAL BID bottle 09/15/20 Potassium Chloride [K-Dur] 20 meq PO BIDCM #60 tab 09/15/20 proMETHazine tablet [Phenergan tablet] 25 mg PO 4X/DAY PRN PRN #30 tab 09/15/20 traMADol [Ultram] 100 mg PO TID PRN PRN 7 Days #20 tab 09/15/20 The following prescriptions were given: Amox/Clavulanate Tablet [Augmentin Tablet] 500 mg PO Q12H #42 tab Transmission Status: Received by [facility] Iron Polysaccharide Complex [Ferrex 150] 150 mg PO DAILYCM #30 cap Transmission Status: Received by [facility] Potassium Chloride [K-Dur] 20 meq PO BIDCM #60 tab Transmission Status: Received by [facility] Ketoconazole 200 mg PO DAILY #30 tab Transmission Status: Received by [facility] proMETHazine tablet [Phenergan tablet] 25 mg PO 4X/DAY PRN PRN #30 tab PRN Reason: NAUSEA/VOMITING Transmission Status: Received by [facility] traMADol [Ultram] 100 mg PO TID PRN PRN 7 Days #20 tab PRN Reason: Pain Score 1-3 Transmission Status: Received by [facility] Primary Care Physician: Jovon Levy MD [Primary Care Provider] - Test Results: Test results from this visit will be discussed in further detail at your follow- up appointment, if applicable. Please Follow Up With: Jose E Dougherty MD - the first visit to the wound center needs to be on a stretcher in an ambulance. When: at wound center on 10/07/20. call [phone] for appt. Proposed Discharge Date: 09/15/20
--- NOTE | 2020-09-15 13:16 | PCM.DC.SUM ---
Discharge Date and Diagnosis Date of Admission: 09/10/20 Date of Discharge: 09/15/20 - Primary Discharge Diagnosis Acute Problems: Recurrent right ischial pressure sore, Stage IV, with incisional breakdown medially after myocutaneous flap in 05/18. Anemia of chronic disease, acute on chronic, with expected blood loss from surgery. Postop fever, probable atelectasis. Hypopotassiumemia. - Secondary Discharge Diagnosis Chronic Problems: Osteomyelitis. Multiple sclerosis. Chronic UTI, has indwelling giordano catheter. Candidal skin infection Debility Psoriasis Bilateral lower extremity edema Hospital Course and Treatment Imaging Results: Diagnostic Data Chest X-Ray 09/12/20 20:14 IMPRESSION: There is NO acute cardiopulmonary abnormality. Electronically Signed: Lalit Mccrary MD at 7:31 EDT , Service support , Chest X-Ray 09/11/20 20:48 IMPRESSION: Scoliosis stable chest. Improved aeration of the lungs since prior study. Postoperative change right axilla. Port-A-Cath. 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 Excision recurrent right ischial pressure sore, Stage IV, with partial ostectomy for osteomyelitis. 2. Reconstruction with right hamstrings V-Y myocutaneous advancement flap. Procedures: None Summary of Care Provided: patient is a 65 year old F with a history of MS presented with a right ischial pressure sore that was excised and reconstructed with a right hamstrings myocutaneous advancement flap on 05/27/20. She also underwent a colostomy on 06/06/20. Initially she went to an F and developed some drainage in her incision line. She was then discharged home as her felt he could care for her now that a colostomy was performed. Before that he was doing daily digital stimulation to help with bowel movements. Operative culture showed Anaerobic cocci. She also had a question of aspiration and was treated with Zosyn. Pathology was positive for osteomyelitis. The wound separation medially stabilized once she was discharged home as her was doing Silver dressing changes 1-2 times per day. Recently it was noted there was some serous drainage lateral to the ulcer in the previous myocutaneous advancement flap scar. No purulent drainage was seen. She presents today for continued operative debridement and complex secondary wound closure versus local transposition skin flap versus readvancement of her myocutaneous flap. On 09/10/20 she went to surgery where she underwent excision recurrent right ischial pressure sore, Stage IV, with partial ostectomy for osteomyelitis and reconstruction with right hamstrings V-Y myocutaneous advancement flap. She tolerated the procedure well. Her drainage output during her hospital stay ranged from 75 ml to 275 ml and 113 ml at discharge. The incisions remained dry and intact as the flap was pink and healing satisfactory with no clinical evidence of hematoma. She developed a fever during her hospital stay to 100.7 and then 101. She had CXR's which were normal. She had a Urinalysis which was normal. Urine culture showed Shyanne, not albicans. She was treated with Nizoral. She was treated initially with Unasyn and when her temperature increased, the Unasyn was changed to Zosyn and then Vancomycin was added. Her operative culture showed Corynebacterium striatum. Blood cultures were negative. When she developed the temperature increase, a COVID test was done which was negative. Her Hgb initially was 10.2 and drifted down to 9.0 at discharge. She was started on Iron supplementation. There was about 150 ml operative blood loss. Her Potassium decreased to 3.1 before increasing to 3.7 at discharge. She was started on Potassium supplements. When she developed the temperature increase, her WBC increased to 16.2 before decreasing to normal at 9.2 at discharge. At discharge on the 5th postop day, the Pathology was pending. If Pathology is positive for osteomyelitis She was afebrile for 24 hours and discharged home on 09/15/20. Wrote scripts for Augmentin, 500mg, for 21 days and a refill and for Nizoral for 30 days and a refill. Wrote scripts for Iron supplementation (30 tabs) with 6 refills and for K-dur (60 tabs) and a refill. Wrote script for Phenergan for nausea (30 tabs) and a refill. Wrote script for Tramadol for pain (20 tabs). Wrote script for Bactroban ointment (3 tubes) with 3 refills. She will be discharged home in an ambulance. Followup Wound Center on 10/07/20 and will ride in an ambulance on that day as well. Will remove the drains and the surgical clips on that day. The second Wound Center visit will be at 6 weeks so she can ride in her wheelchair to the appointment. Will remove the Nylon sutures at that time. was shown the dressing changes to be done daily. Apply Bactroban ointment to suture line daily followed by Kerlix gauze and ABD pads followed by compression yolanda wrap. Will check a Hgb and a Potassium in 2-3 weeks. Subjective: Postop #5 Patient is resting comfortably. - Physical Exam Vitals/I&O's: Vital Signs Temp Pulse Resp BP Pulse Ox 97.7 F L 66 16 124/66 H 100 09/15/20 07:50 09/15/20 10:49 09/15/20 07:50 09/15/20 07:50 09/15/20 07:50 Oxygen Flow Rate (L/min) 2 Oxygen Delivery Method Room Air Weight: 170 lb 0.01 oz Body Mass Index (BMI) 26.6 Intake and Output for Last 24 Hours 09/13/20 09/14/20 09/15/20 23:59 23:59 23:59 Intake Total 3929.17 / 4579.17 6498.83 / 7198.83 3678.67 / 3678.67 Output Total 5133 / 7468 8550 / 49148 5563 / 5563 Balance -1203.83 / -2888.83 -2051.17 / -3231.17 -1884.33 / -1884.33 General: Alert, Oriented x3 HEENT: PERRLA, EOMI Oral: Moist Mucosa Neck: Supple Lungs: Clear to auscultation Cardiovascular: Regular rate, Regular Rhythm Abdomen: Soft, Non-Distended Skin: Incision - incisions are dry and intact. Flap is pink and soft and healing satisfactory. No clinical evidence of hematoma or infection. Neurological: Cranial nerves II-XII grossly intact Psych/Mental Status: Normal Affect, Appropriate Microbiology Past 72 Hours 09/12/20 21:01 Blood Culture (Wb) - Left Hand Blood Culture - Preliminary No growth in 48 hours. 09/12/20 20:50 Blood Culture (Wb) - Left Forearm Blood Culture - Preliminary No growth in 48 hours. 09/11/20 22:10 Urine Catheter - Giordano Urine Culture - Final Yeast, not Shyanne albicans 09/10/20 12:52 Bone - Ischium Gram Stain - Final 09/10/20 12:52 Bone - Ischium Wound Culture - Final No growth aerobically. 09/10/20 12:52 Bone - Ischium Anaerobic Culture - Preliminary No growth in 48 hours. 09/10/20 12:50 Tissue - Ischium Gram Stain - Final 09/10/20 12:50 Tissue - Ischium Wound Culture - Final Corynebacterium striatum 09/10/20 12:50 Tissue - Ischium Anaerobic Culture - Preliminary No growth in 48 hours. Laboratory Results 09/15/20 05:15: WBC 9.2, RBC 3.37 L, Hgb 9.0 L, Hct 28.8 L, MCV 85.5, MCH 26.7 L, MCHC 31.3 L, RDW Std Deviation 49.3 H, RDW Coeff of Homer 15.8 H, Plt Count 371, MPV 9.4 09/15/20 05:15: Sodium 140, Potassium 3.7, Chloride 106, Carbon Dioxide 30.0, Anion Gap 4 L, BUN 9, Creatinine 0.32 L, Estim Creat Clear Calc 170.44, Est GFR (MDRD) Af Amer 266, Est GFR (MDRD) Non-Af 220, BUN/Creatinine Ratio 28.1 H, Glucose 90, Calcium 8.0 L Current Medications Acetaminophen (Acetaminophen 500 Mg Tablet) 1,000 mg PO Q6H PRN PRN PRN Reason: HEADACHE/FEVER (T>100F) Last Admin: 09/15/20 03:14 Dose: 1,000 mg Documented by: Baclofen (Baclofen 10 Mg Tablet) 20 mg PO TID [facility] Last Admin: 09/15/20 05:35 Dose: 20 mg Documented by: Diazepam (Diazepam 5 Mg Tablet) 5 mg PO 4X/DAY PRN PRN PRN Reason: SPASMS Docusate Sodium (Docusate Sodium 100 Mg Capsule) 100 mg PO BID [facility] Last Admin: 09/15/20 10:40 Dose: 100 mg Documented by: Enoxaparin Sodium (Enoxaparin 40 Mg/0.4 Ml Syringe) 40 mg SC DAILY@0600 [facility] Last Admin: 09/15/20 05:36 Dose: 40 mg Documented by: Heparin Sodium (Beef Lung) (Heparin Pf Lock 10 Units/Ml 50 Units/5 Ml Syringe) 50 units IV UD PRN PRN Reason: Port-a-Cath (VAD)Heparin Flush Hydromorphone HCl (Hydromorphone 0.5 Mg/0.5 Ml Syringe) 0.5 mg IV Q4H PRN PRN PRN Reason: Pain Score 6-10 Lactated Ringer's () 1,000 mls @ 125 mls/hr IV .Q8H [facility] Last Infusion: 09/15/20 11:10 Dose: 0 mls/hr Documented by: Piperacillin Sod/Tazobactam (Sod 3.375 gm/ Sodium Chloride) 50 mls @ 12.5 mls/hr IV Q8 [facility] Last Infusion: 09/15/20 09:36 Dose: Infused Documented by: Sodium Chloride () 250 mls @ 15 mls/hr IV .[id number] PRN PRN Reason: Saline Flush Last Infusion: 09/15/20 09:36 Dose: 15 mls/hr Documented by: Sodium Chloride () 250 mls @ 15 mls/hr IV .[id number] PRN PRN Reason: Additional IVPB Infusion Vancomycin IV Pharmacy to Dose (1 ea/ Sodium Chloride) 500 mls @ 250 mls/hr IV PRN PRN; Protocol PRN Reason: Rx to Dose Vancomycin HCl 1,250 mg/ (Sodium Chloride) 275 mls @ 167 mls/hr IV Q12H [facility] Last Admin: 09/15/20 11:10 Dose: 167 mls/hr Documented by: Ketoconazole (Ketoconazole 200 Mg Tablet) 200 mg PO DAILY [facility] Last Admin: 09/15/20 10:49 Dose: 200 mg Documented by: Metoprolol Tartrate (Metoprolol Tartrate 25 Mg Tablet) 25 mg PO BID [facility] Last Admin: 09/15/20 10:49 Dose: 25 mg Documented by: Mupirocin (Mupirocin Ointment 22gm Tube) 1 applic TOPICAL X1 ONE; Protocol Stop: 09/15/20 13:09 Nutritional Formula (Lactose Free) (Ensure Clear 120 Ml Liquid) 120 ml PO 4X/DAY [facility] Last Admin: 09/15/20 10:44 Dose: Not Given Documented by: Nystatin (Nystatin Powder 15gm Bottle) 1 applic TOPICAL BID [facility]; Protocol Last Admin: 09/15/20 10:49 Dose: 1 applicatio Documented by: Ondansetron HCl (Ondansetron 4 Mg/2 Ml Vial) 4 mg IV Q6H PRN PRN PRN Reason: NAUSEA Last Admin: 09/14/20 10:21 Dose: 4 mg Documented by: Oxycodone HCl (Oxycodone 5 Mg Tablet) 5 mg PO Q4H PRN PRN PRN Reason: Pain Score 4-5 Polysaccharide Iron Complex (Iron Polysaccharide Complex 150 Mg [facility]apsule) [facility] Admin: 09/15/20 10:40 Dose: 150 mg Documented by: Potassium Chloride (Potassium Chloride 20 Meq Tablet) [facility] Last Admin: 09/15/20 10:40 Dose: 20 meq Documented by: Promethazine HCl (Promethazine 25 Mg Tablet) 25 mg PO Q4H PRN PRN PRN Reason: NAUSEA/VOMITING Last Admin: 09/12/20 21:39 Dose: 25 mg Documented by: Sodium Chloride (0.9% Saline Lock 10 Ml Syringe) 10 - 40 ml IV UD PRN PRN Reason: Port-a-Cath (VAD) Flush Last Admin: 09/15/20 05:36 Dose: 20 ml Documented by: Sodium Chloride (0.9 % Nacl (Sterile) Posiflush 10 Ml) 10 - 40 ml IV UD PRN PRN Reason: Port access or dressing change Tramadol HCl (Tramadol 50 Mg Tablet) 100 mg PO TID PRN PRN PRN Reason: Pain Score 1-3 Last Admin: 09/12/20 19:05 Dose: 100 mg Documented by: Discharge Diet: No Restrictions, - - encourage nutritional supplementation with protein to help the healing process. Discharge Activity: May Take a Tub Bath - after the drains are removed. May resume sexual activity in: 6-8 weeks Weight Bearing Status: No weight bearing Call your doctor if your incision/area has: Continuous Slow Oozing, Sudden Increased Bleeding, Increased Pain/ Swelling, Increased Redness, Foul Smelling Discharge, Swelling at the incision site Call your doctor if you observe: Fever of 101 or Higher, Coldness, Increased Pain, Shortness of breath, Chest pain Suture Line Care: - - apply antibiotic ointment to suture line daily followed by kerlix gauze and ABD pads and compression yolanda wrap. Change Dressing in (Days):: 1 - dressing changes daily Cleanse incision/area with: - - may get incisions wet with soap and water after the drains are removed. Catheter: Giordano to leg bag - change once a month and prn. Drain: Suction - pelon drain x2 to bulb suction. empty and record output daily. Home Medications: Medications to take at Discharge Ascorbic Acid [Vitamin C] 1 tab PO BID 11/03/19 Baclofen 1 - 2 tab PO Q8H PRN PRN 11/03/19 Cholecalciferol (VIT D3) [Vitamin D3] 1,000 unit PO DINNER 11/03/19 Cholestyramine (with Sugar) [Cholestyramine Powder] 1 packet PO DAILY 11/03/19 Cranberry Fruit Extract [Cranberry] 200 mg PO DINNER 11/03/19 Letrozole 1 tab PO DAILY 11/03/19 Oxybutynin [Ditropan] 2 tab PO BID 11/03/19 Acetaminophen [Tylenol Tablet] 650 mg PO Q6H PRN PRN tab 11/08/19 Nitrofurantoin Macrocrystal [Macrodantin] 50 mg PO DINNER 04/25/20 Pro Stat 5 ml PO DINNER 04/25/20 L. Rhamnosus GG/Inulin [Culturelle Digest 10B Cell Cap] 2 ea PO QHS 05/26/20 Magnesium Hydroxide [Milk Of Magnesia] 30 ml PO PRN PRN 05/26/20 Metoprolol Tartrate [Lopressor (beta alex)] 25 mg PO BID 05/26/20 Nystatin 1 applic TOPICAL BID 05/26/20 Acetic Acid 60 ml IR QHS 09/02/20 Docusate Sodium [Colace] 100 mg PO DAILY 09/02/20 Amox/Clavulanate Tablet [Augmentin Tablet] 500 mg PO Q12H #42 tab 09/15/20 Baclofen [Lioresal] 20 mg PO TID tab 09/15/20 Docusate Sodium [Colace] 100 mg PO BID cap 09/15/20 Ensure Clear 120 ml PO 4X/DAY liquid 09/15/20 Iron Polysaccharide Complex [Ferrex 150] 150 mg PO DAILYCM #30 cap 09/15/20 Ketoconazole 200 mg PO DAILY #30 tab 09/15/20 Ketoconazole [Nizoral] 200 mg PO DAILY tab 09/15/20 Metoprolol Tartrate [Lopressor (beta alex)] 25 mg PO BID tab 09/15/20 Mupirocin [Bactroban] 1 applic TOPICAL .QDAILY #3 tube 09/15/20 Nystatin Powder [Mycostatin Powder] 1 applic TOPICAL BID bottle 09/15/20 Potassium Chloride [K-Dur] 20 meq PO BIDCM #60 tab 09/15/20 proMETHazine tablet [Phenergan tablet] 25 mg PO 4X/DAY PRN PRN #30 tab 09/15/20 traMADol [Ultram] 100 mg PO TID PRN PRN 7 Days #20 tab 09/15/20 Following Prescriptions Were Given to Patient: Amox/Clavulanate Tablet [Augmentin Tablet] 500 mg PO Q12H #42 tab Transmission Status: Received by [facility] Mupirocin [Bactroban] 1 applic TOPICAL .QDAILY #3 tube Transmission Status: Received by [facility] Iron Polysaccharide Complex [Ferrex 150] 150 mg PO DAILYCM #30 cap Transmission Status: Received by [facility] Potassium Chloride [K-Dur] 20 meq PO BIDCM #60 tab Transmission Status: Received by [facility] Ketoconazole 200 mg PO DAILY #30 tab Transmission Status: Received by [facility] proMETHazine tablet [Phenergan tablet] 25 mg PO 4X/DAY PRN PRN #30 tab PRN Reason: NAUSEA/VOMITING Transmission Status: Received by [facility] traMADol [Ultram] 100 mg PO TID PRN PRN 7 Days #20 tab PRN Reason: Pain Score 1-3 Transmission Status: Received by [facility] Primary Care Physician: Jovon Levy MD [Primary Care Provider] - Please Follow Up With: Jose E Dougherty MD - the first visit to the wound center needs to be on a stretcher in an ambulance. When: at wound center on 10/07/20. call [phone] for appt. Additional Instructions: Will check a Hgb and Potassium in 2-3 weeks. Disposition: Home with Home Health Minutes spent on discharge:: 40 Patient Condition:: Stable Medical Necessity - Tobacco Use Smoking Status: Never smoker Meaningful Use Info Meaningful Use Diagnoses (Choose all that apply): None applicable
[2020-09-15 15:15] VITALS: BP 112/60; PULSE 88; RESP 16; TEMP 36.3; O2SAT 98
[2020-09-15] MEDS: Ondansetron 4 MG/2 ML Vial IV (15:35)
[2020-09-15] MEDS: Mupirocin Ointment 22gm Tube 1 APPLIC TOPICAL (15:47)
== END 2020-09-15 16:25 | disposition home or self-care (01) | DRG 580 ==
LOC: SDC 16:05 → MS3 16:05
PROVIDERS: Admitting Provider Surgery; PCP Family Medicine; Referring Provider Surgery; Visit Provider Surgery
PROC: 0QB20ZZ Excision of Right Pelvic Bone, Open Approach (ICD-10-PCS; principal; 2020-09-10 11:05)
DX: L89.314 Pressure ulcer of right buttock, stage 4 (principal); T83.511A Infection and inflammatory reaction due to indwelling urethral catheter, initial encounter; B37.49 Other urogenital candidiasis; J95.89 Other postprocedural complications and disorders of respiratory system, not elsewhere classified; J98.11 Atelectasis; M86.651 Other chronic osteomyelitis, right thigh; B96.89 Other specified bacterial agents as the cause of diseases classified elsewhere; B37.2 Candidiasis of skin and nail; R50.82 Postprocedural fever; D63.8 Anemia in other chronic diseases classified elsewhere; E87.6 Hypokalemia; G35 Multiple sclerosis; R53.81 Other malaise; L40.9 Psoriasis, unspecified; R60.0 Localized edema; R00.0 Tachycardia, unspecified; R51.9 Headache, unspecified; Z93.3 Colostomy status; Z79.899 Other long term (current) drug therapy
CPT/HCPCS: 36415; 71045; 80048; 80202; 81001; 84134; 85027; 87040; 87070; 87075; 87077; 87086; 87088; 87102; 87176; 87205; 87206; 87635; 88304; 88305; 88311; 94667; 99251; J7050; J7120; A4216; G0463; J0295; J2405; U0003

== ENCOUNTER 2020-10-28 10:30 | Outpatient (RCR) | payer MEDICARE, SELFPAY ==
[2020-08-29 00:28] VITALS: BP 125/59; PULSE 79; RESP 18; TEMP 36.7
[2020-09-10 18:00] VITALS: BMI 26.6
--- NOTE | 2020-09-18 16:14 | WC ---
Received a call from Karen from home health regarding instructions of wound care since patient was in the hospital for a muscle flap. Faxed patients discharge instructions from Dr Dougherty with instructions on suture line to [facility]. Spoke to Delia FIGUEREDO prior to speaking to Karen discussing the concern on frequency of dressing changes, can only staff nurses 2/week. Per Delia, okay to decrease visits with home health as long as dressings continue to stay dry and clean. If so, dressings do not have to be changed daily. Discussed this with Karen. Also called Shelia the spouse of patient but left a voicemail reviewing above findings.
--- NOTE | 2020-09-27 09:37 | WC ---
Cancelled ambulance transport from [facility] for October 07. Patient's spouse is still trying to make arrangements for her appt via gurney. Have attempted 4 local non-emergent transport services who all state they do not transport from residential to office. Orders provided from Dr Dougherty's office to manage patient's dressing and HETAL drain sites.
--- NOTE | 2020-10-01 09:05 | WC ---
Patient's called and confirmed that he found an ambulance company that will be able to transport her to her appt on 10-07-20 at 11am. Karen was notified at [facility] to D/C one of her HETAL drain or the one that is the most bothersome. Now that the patient is able to come next week, the question arose if they still needed to D/C a drain. Spoke to Delia Nieves RESERVOIR ENGINEERING CONSULTANT regarding this who stated that if they can still D/C one drain, then at her next appt, the 2nd one can be removed by Delia. She doesn't want both drains removed at the same time so the timing will be good if one is removed this week, then the 2nd next Wednesday. Karen verbalized understanding and will discuss this with patient.
--- NOTE | 2020-10-01 09:10 | WC ---
[facility] was arranged by Shelia, patient's spouse, for 10-07-2020.
[2020-10-07 10:54] VITALS: BP 121/72; PULSE 80; RESP 18; TEMP 36.4; BMI 26.6
--- NOTE | 2020-10-07 14:28 | PCM.WC.PN ---
(1) Right ischial pressure sore, stage 4 Status: Chronic Code(s): L89.314 - Pressure ulcer of right buttock, stage 4 (2) Chronic osteomyelitis of right pelvic region Status: Chronic Code(s): M86.651 - Other chronic osteomyelitis, right thigh (3) Debility Status: Chronic Code(s): R53.81 - Other malaise (4) Multiple sclerosis Status: Chronic Code(s): G35 - Multiple sclerosis Type of Wound Date of Service: 10/07/20 Chief Complaint: Right ischial pressure sore, Stage IV, with myocutaneous flap closure and mild flap compromise medially. History of Wound: Surgery 09/10/20 - 1. Excision recurrent right ischial pressure sore, Stage IV, with partial ostectomy for osteomyelitis. 2. Reconstruction with right hamstrings V-Y myocutaneous advancement flap. Surgery 05/27/20 - 1. Excision right ischial pressure sore, Stage IV, with partial ostectomy for osteomyelitis. 2. Reconstruction with right hamstrings myocutaneous advancement flap. 3. Placement AmnioFill placental connective tissue powder (500 mg). Pathology of bone was positive for acute and chronic osteomyelitis. Operative soft tissue cultures positive for Corynebacterium striatum and Anaerobic cocci. Operative bone cultures positive for Anaerobic cocci. Treatment with Zosyn until 07/08/20. On 06/06/20 she had a Laparoscopic sigmoid colectomy with end colostomy placed by Dr. Coyne. On 06/14/20 - Ultrasound and fluoroscopy guided right chest port placement utilizing right IJ. Wound care- Silver dressing changes daily to to the two small openings. Obtained a follow up chest xray due to her aspiration pneumonia that she had while hospitalized. It showed mild residual increased markings in the lung bases. CT Pelvis from 11/03/19 showed There is a 2.6 cm x 3.5 cm soft tissue defect in the medial proximal right. buttock with the surrounding soft tissue swelling and edema. The inflammatory changes extend into the right inferior pubic ramus with the findings suggestive of a possible bony destruction secondary to osteomyelitis. Dense calcifications are seen in the soft tissues overlying both buttocks and the left side of the sacrum. There is also evidence of a 3.2 cm x 4.1 cm soft tissue density involving the tip of the sacrum and coccyx. There is also evidence of multiple calcific densities and ossifications overlying the right greater trochanter. There is also evidence of soft tissue swelling at that site. Prealbumin from 05/26/20 was 16.2. Encourage nutritional supplementation with protein to help the healing process. Today she denies fever. Her appetite is ok. She has been discharged from the [facility] and is feeling much better being at home. Progress of Wound: Sutures and erasmo removed. Final Bhupendra drain removed. Two small areas of moisture along the most proximal edge of the flap that silver is being placed. Currently stable. - Physical Exam Vital Signs Temp Pulse Resp BP 97.6 F L 80 18 121/72 H 10/07/20 10:54 10/07/20 10:54 10/07/20 10:54 10/07/20 10:54 General: Alert, Oriented x3, Cooperative HEENT: Atraumatic Oral: Moist Mucosa Lungs: Normal air movement Cardiovascular: Regular rate Abdomen: Soft Extremities: Capillary Refill Less than 3 Seconds Skin: Incision - Right posterior buttock, thigh, knee incision is intact. Stables and sutures removed without difficulty. Bhupendra drain removed without difficulty. Small area of break down at the most proximal edge of incision (1 x 0.5 cm) and small separation on the lateral aspect of the incision in skin crease. Wound Measurements and Assessment WC - Nurse 1 - General Ulcer Measurement Start: 10/07/20 08:21 Freq: Status: Active Protocol: Activity Type Activity Date Activity User E-Sign Co-Sign Detail Recorded Client Recorded Date Recorded By Document 10/07/20 10:54 [id number] 10/07/20 11:06 DL 10/07/20 10:54 Wound Center Nurse 1 [Ulcer Assessment] #4- R GLUTEAL FOLD -Current Size (cm) - Length 0.1 -Current Size (cm) - Width 0.1 -Current Size (cm) - Depth 0.1 -Total Square Cm 0.01 -Photo Taken Yes -Exudate Amt None Present -Wound Margin Flat & Intact -Granulation Amt Large (67-100%) -Granulation Quality [place] -Necrosis Amt None Present (0 %) -Structure Exposed N/A -Texture (Janene-wound Skin Appearance) Scarring -Moisture (Janene-wound Skin Appearance No Abnormality ) -Color (Janene-wound Skin Appearance) No Abnormality -Temperature (Janene-wound Skin No Abnormality Appearance) (Pt Warm) -Tenderness on Palpation (Janene-wound No Skin Appearance) -Ulcer Cleansing Wound Cleanser -Foul Odor after Cleansing No WC - Nurse 2 - General Ulcer CM Notes Start: 10/07/20 08:21 Freq: Status: Active Protocol: Activity Type Activity Date Activity User E-Sign Co-Sign Detail Recorded Client Recorded Date Recorded By Document 10/07/20 11:42 KIRK [id number] 10/07/20 11:47 10/07/20 11:42 Wound Center Nurse 2 [Procedure/Treatment] -Correct Patient No -Correct Side, Site, Position No -Correct Procedure No -Procedure Performed No -Post Debridement (cm) - Length 0 -Post Debridement (cm) - Width 0 -Post Debridement (cm) - Depth 0 -Total Square (Post) (cm) 0 -Area of Debridement (cm) - Length 0 -Area of Debridement (cm) - Width 0 -Total Square (Area) (cm) 0 -Wound/Ulcer Outcome Healed- Flap [See Physician Procedure note for Specifics] Pain Scale: 0-10 Numeric [Pain] -Is Patient Pain Free? Yes - Nurse 3 - General Ulcer D/C NN Start: 10/07/20 08:21 Freq: Status: Active Protocol: Activity Type Activity Date Activity User E-Sign Co-Sign Detail Recorded Client Recorded Date Recorded By Document 10/07/20 12:16 DANETTE [id number] 10/07/20 12:18 10/07/20 12:16 Wound Care Nurse 3 [Compression Applied] Right -Compression Wrap Fish Wrap [Post Procedure Tolerated] -Treatment Response Procedure Tolerated Well Pain Scale: 0-10 Numeric [Pain] -Is Patient Pain Free? Yes - Visit Discharge [Visit Discharge Information] -Discharge Condition Stable -Ambulatory Status Stretcher -Transportation Ambulance -Notes: Aquacel AG to any moist areas over incision line. Top with ABD, Aquacel AG to drain sites also. [Facility Notification] -Facility Type Home Health -Orders Sent Yes Debridement Note Post-Debridement Measurements/Treatment WC - Nurse 2 - General Ulcer CM Notes Start: 10/07/20 08:21 Freq: Status: Active Protocol: Activity Type Activity Date Activity User E-Sign Co-Sign Detail Recorded Client Recorded Date Recorded By Document 10/07/20 11:42 [id number] 10/07/20 11:47 10/07/20 11:42 Wound Center Nurse 2 #4- R GLUTEAL FOLD -Correct Patient No -Correct Side, Site, Position No -Correct Procedure No -Procedure Performed No -Post Debridement (cm) - Length 0 -Post Debridement (cm) - Width 0 -Post Debridement (cm) - Depth 0 -Total Square (Post) (cm) 0 -Area of Debridement (cm) - Length 0 -Area of Debridement (cm) - Width 0 -Total Square (Area) (cm) 0 -Wound/Ulcer Outcome Healed- Flap Pain Scale: 0-10 Numeric Is Patient Pain Free? Yes - Nurse 3 - General Ulcer D/C NN Start: 10/07/20 08:21 Freq: Status: Active Protocol: Activity Type Activity Date Activity User E-Sign Co-Sign Detail Recorded Client Recorded Date Recorded By Document 10/07/20 12:16 DL [id number] 10/07/20 12:18 DL 10/07/20 12:16 Wound Care Nurse 3 Right -Compression Wrap Fish Wrap Treatment Response Procedure Tolerated Well Pain Scale: 0-10 Numeric Is Patient Pain Free? Yes WC - Visit Discharge Discharge Condition Stable Ambulatory Status Stretcher Transportation Ambulance Notes: Aquacel AG to any moist areas over incision line. Top with ABD, Aquacel AG to drain sites also. Facility Type Home Health Orders Sent Yes No debridement was completed today - [place] and sutures removed without difficulty. Assessment/Plan Active Problems Chronic osteomyelitis of right pelvic region (Chronic) Right ischial pressure sore, stage 4 (Chronic) Debility (Chronic) Multiple sclerosis (Chronic) Assessment: 1. Right ischial pressure sore, Stage IV. 2. Osteomyelitis. 3. Multiple sclerosis. 4. s/p excision right ischial pressure sore, Stage IV, with partial ostectomy for osteomyelitis and reconstruction with right hamstrings myocutaneous advancement flap and placement AmnioFill placental connective tissue powder (500 mg). 5. Mild compromise medial aspect of myocutaneous flap. Plan: Wound care: There are two small areas on the proximal edge of the graft that have moisture that they are placing silver on. Final Bhupendra drain removed along with sutures and erasmo. Surgery on 09/10/20 - Surgery 09/10/20 - 1. Excision recurrent right ischial pressure sore, Stage IV, with partial ostectomy for osteomyelitis. 2. Reconstruction with right hamstrings V-Y myocutaneous advancement flap. Continue Augmentin and Nizoral. Followup 2 weeks - ok to come in her wheelchair for transport because it will be over 6 weeks at that time. [id number]: [id number] Global Visit
--- NOTE | 2020-10-09 16:18 | WC ---
Received a call from Brigid at [facility] regarding flushing patient's port. Last time port was flushed was on 09-15-2020 and they want approval to flush port on 10-18-2020. Delia Nieves notified of this and she is okay with having it flushed on the of this month. Left a voicemail message with Karen, charge nurse with [facility] regarding this matter and to call for further questions.
[2020-10-28 10:29] VITALS: BP 123/87; PULSE 91; RESP 16; TEMP 35.9; BMI 26.6
--- NOTE | 2020-10-28 12:47 | PCM.WC.PN ---
(1) Right ischial pressure sore, stage 4 Status: Chronic Code(s): L89.314 - Pressure ulcer of right buttock, stage 4 (2) Chronic osteomyelitis of right pelvic region Status: Chronic Code(s): M86.651 - Other chronic osteomyelitis, right thigh (3) Debility Status: Chronic Code(s): R53.81 - Other malaise (4) Multiple sclerosis Status: Chronic Code(s): G35 - Multiple sclerosis Type of Wound Date of Service: 10/28/20 Chief Complaint: Right ischial pressure sore, Stage IV, with myocutaneous flap closure and mild flap compromise medially. History of Wound: Surgery 09/10/20 - 1. Excision recurrent right ischial pressure sore, Stage IV, with partial ostectomy for osteomyelitis. 2. Reconstruction with right hamstrings V-Y myocutaneous advancement flap. Surgery 05/27/20 - 1. Excision right ischial pressure sore, Stage IV, with partial ostectomy for osteomyelitis. 2. Reconstruction with right hamstrings myocutaneous advancement flap. 3. Placement AmnioFill placental connective tissue powder (500 mg). Pathology of bone was positive for acute and chronic osteomyelitis. Operative soft tissue cultures positive for Corynebacterium striatum and Anaerobic cocci. Operative bone cultures positive for Anaerobic cocci. She has a small opening on right posterior thigh that silver is being placed daily. Treatment with Zosyn until 07/08/20. On 06/06/20 she had a Laparoscopic sigmoid colectomy with end colostomy placed by Dr. Coyne. On 06/14/20 - Ultrasound and fluoroscopy guided right chest port placement utilizing right IJ. Wound care- Silver dressing changes daily to to the two small openings. Obtained a follow up chest xray due to her aspiration pneumonia that she had while hospitalized. It showed mild residual increased markings in the lung bases. CT Pelvis from 11/03/19 showed There is a 2.6 cm x 3.5 cm soft tissue defect in the medial proximal right. buttock with the surrounding soft tissue swelling and edema. The inflammatory changes extend into the right inferior pubic ramus with the findings suggestive of a possible bony destruction secondary to osteomyelitis. Dense calcifications are seen in the soft tissues overlying both buttocks and the left side of the sacrum. There is also evidence of a 3.2 cm x 4.1 cm soft tissue density involving the tip of the sacrum and coccyx. There is also evidence of multiple calcific densities and ossifications overlying the right greater trochanter. There is also evidence of soft tissue swelling at that site. Prealbumin from 05/26/20 was 16.2. Encourage nutritional supplementation with protein to help the healing process. Today she denies fever. Her appetite is ok. She has been discharged from the [facility] and is feeling much better being at home. Progress of Wound: One small areas of moisture along the most proximal edge of the flap that silver is being placed. Currently stable. - Physical Exam Vital Signs Temp Pulse Resp BP 96.7 F L 91 16 123/87 H 10/28/20 10:29 10/28/20 10:29 10/28/20 10:29 10/28/20 10:29 General: Alert, Oriented x3, Cooperative HEENT: Atraumatic Oral: Moist Mucosa Lungs: Normal air movement Cardiovascular: Regular rate Extremities: Capillary Refill Less than 3 Seconds, Edema Skin: Ulcer/ Wound - Opned area on right posterior thigh along the sture line that is very superficial. Wound Measurements and Assessment WC - Nurse 2 - General Ulcer CM Notes Start: 10/07/20 08:21 Freq: Status: Active Protocol: Activity Type Activity Date Activity User E-Sign Co-Sign Detail Recorded Client Recorded Date Recorded By Document 10/28/20 11:03 KIRK [id number] 10/28/20 11:04 KIRK 10/28/20 11:03 Wound Center Nurse 2 [Procedure/Treatment] 5-right ischium -Correct Patient Yes -Correct Side, Site, Position Yes -Correct Procedure Yes -Procedure Performed Yes -Type of Procedure Debridement -Clinical Debridement Subcutaneous -Tissue Removed Subcutaneous -Post Debridement (cm) - Length 0.5 -Post Debridement (cm) - Width 0.5 -Post Debridement (cm) - Depth 0.1 -Total Square (Post) (cm) 0.25 -Area of Debridement (cm) - Length 0.5 -Area of Debridement (cm) - Width 0.5 -Total Square (Area) (cm) 0.25 -Tunneling No -Undermining/Tunneling No -Circular Undermining No -Wound/Ulcer Outcome Not Healed -Ulcer Cleansing Rinsed/ Irrigated with Saline -Foul Odor after Cleansing No -Bioengineered Tissue No -Bleeding Controlled with Pressure -Offloading No -Treatment Response Procedure Tolerated Well -Debridement - Subq, 1st 20sq cm Yes [See Physician Procedure note for Specifics] Pain Scale: 0-10 Numeric [Pain] -Is Patient Pain Free? Yes - Nurse 3 - General Ulcer D/C NN Start: 10/07/20 08:21 Freq: Status: Active Protocol: Activity Type Activity Date Activity User E-Sign Co-Sign Detail Recorded Client Recorded Date Recorded By Document 10/28/20 11:29 [facility] [id number] 10/28/20 11:30 [facility] 10/28/20 11:29 Wound Care Nurse 3 [Wound Dressing] 5-right ischium -Ulcer Cleansing Rinsed/ Irrigated with Saline -Foul Odor after Cleansing No -Primary Dressing Applied Aquacel AG 4x4 -Primary Dressing Covered/Secured Dry Gauze, with Secured with Tape -Aquacel AG 4x4 1 [Post Procedure Tolerated] -Treatment Response Procedure Tolerated Well Pain Scale: 0-10 Numeric [Pain] -Is Patient Pain Free? Yes - Visit Discharge [Visit Discharge Information] -Discharge Condition Stable -Ambulatory Status Wheelchair -Transportation Private Auto Musculoskeletal: No Tenderness to Palpation of Joints or Extremities Neurological: Cranial nerves II-XII grossly intact Psych/Mental Status: Normal Affect, Appropriate Debridement Note Post-Debridement Measurements/Treatment - Nurse 2 - General Ulcer CM Notes Start: 10/07/20 08:21 Freq: Status: Active Protocol: Activity Type Activity Date Activity User E-Sign Co-Sign Detail Recorded Client Recorded Date Recorded By Document 10/07/20 11:42 [id number] 10/07/20 11:47 Document 10/28/20 11:03 [id number] 10/28/20 11:04 10/07/20 10/28/20 11:42 11:03 Wound Center Nurse 2 5-right ischium -Correct Patient Yes -Correct Side, Site, Position Yes -Correct Procedure Yes -Procedure Performed Yes -Type of Procedure Debridement -Clinical Debridement Subcutaneous -Tissue Removed Subcutaneous -Post Debridement (cm) - Length 0.5 -Post Debridement (cm) - Width 0.5 -Post Debridement (cm) - Depth 0.1 -Total Square (Post) (cm) 0.25 -Area of Debridement (cm) - Length 0.5 -Area of Debridement (cm) - Width 0.5 -Total Square (Area) (cm) 0.25 -Tunneling No -Undermining/Tunneling No -Circular Undermining No -Wound/Ulcer Outcome Not Healed -Ulcer Cleansing Rinsed/ Irrigated with Saline -Foul Odor after Cleansing No -Bioengineered Tissue No -Bleeding Controlled with Pressure -Offloading No -Treatment Response Procedure Tolerated Well -Debridement - Subq, 1st 20sq cm Yes #4- R GLUTEAL FOLD -Correct Patient No -Correct Side, Site, Position No -Correct Procedure No -Procedure Performed No -Post Debridement (cm) - Length 0 -Post Debridement (cm) - Width 0 -Post Debridement (cm) - Depth 0 -Total Square (Post) (cm) 0 -Area of Debridement (cm) - Length 0 -Area of Debridement (cm) - Width 0 -Total Square (Area) (cm) 0 -Wound/Ulcer Outcome Healed- Flap Pain Scale: 0-10 Numeric Is Patient Pain Free? Yes Yes - Nurse 3 - General Ulcer D/C NN Start: 10/07/20 08:21 Freq: Status: Active Protocol: Activity Type Activity Date Activity User E-Sign Co-Sign Detail Recorded Client Recorded Date Recorded By Document 10/07/20 12:16 DL [id number] 10/07/20 12:18 DL Document 10/28/20 11:29 [facility] [id number] 10/28/20 11:30 [facility] 10/07/20 10/28/20 12:16 11:29 5-right ischium -Ulcer Cleansing Rinsed/ Irrigated with Saline -Foul Odor after Cleansing No -Primary Dressing Applied Aquacel AG 4x4 -Primary Dressing Covered/Secured with Dry Gauze, Secured with Tape -Aquacel AG 4x4 1 Wound Care Nurse 3 Right -Compression Wrap Fish Wrap Treatment Response Procedure Procedure Tolerated Well Tolerated Well Pain Scale: 0-10 Numeric Is Patient Pain Free? Yes Yes - Visit Discharge Discharge Condition Stable Stable Ambulatory Status Stretcher Wheelchair Transportation Ambulance Private Auto Notes: Aquacel AG to any moist areas over incision line. Top with ABD, Aquacel AG to drain sites also. Facility Type Home Health Orders Sent Yes Wound debrided: posterior thigh opened area on incision line Laterality: Right Type of Debridement: Excisional debridement Anesthesia Used: 4% Lidocaine Solution Depth: Down to and including healthy tissue, in the subcutaneous layer Percentage of wound debrided: 100 Instrument Used: 3mm curette Tissue Removed: Subcutaneous tissue and slough Severity: Limited To Skin Breakdown Amount of bleeding with debridement: Mild Bleeding Controlled with: Pressure Patient tolerated procedure well Assessment/Plan Active Problems Chronic osteomyelitis of right pelvic region (Chronic) Right ischial pressure sore, stage 4 (Chronic) Debility (Chronic) Multiple sclerosis (Chronic) Assessment: 1. Right ischial pressure sore, Stage IV. 2. Osteomyelitis. 3. Multiple sclerosis. 4. s/p excision right ischial pressure sore, Stage IV, with partial ostectomy for osteomyelitis and reconstruction with right hamstrings myocutaneous advancement flap and placement AmnioFill placental connective tissue powder (500 mg). 5. Mild compromise medial aspect of myocutaneous flap. Plan: Wound care: There is one small area on the proximal edge of the graft that have moisture that they are placing silver on. Surgery on 09/10/20 - Surgery 09/10/20 - 1. Excision recurrent right ischial pressure sore, Stage IV, with partial ostectomy for osteomyelitis. 2. Reconstruction with right hamstrings V-Y myocutaneous advancement flap. Continue Augmentin and Nizoral. Followup 2 weeks [id number]: [id number] [facility] Visit
== END 2020-10-28 23:59 ==
LOC: WC 10:30
PROVIDERS: Family Provider Family Medicine; PCP Family Medicine; Referring Provider Nurse Practitioner Family; Visit Provider Nurse Practitioner Family
DX: L89.214 Pressure ulcer of right hip, stage 4 (principal); M86.651 Other chronic osteomyelitis, right thigh; G35 Multiple sclerosis
CPT/HCPCS: 11042; 99213; G0463

== ENCOUNTER 2020-11-11 10:15 | Outpatient (RCR) | payer MEDICARE, SELFPAY ==
[2020-10-29 00:06] VITALS: BP 123/87; PULSE 91; RESP 16; TEMP 35.9
[2020-11-11 10:51] VITALS: BP 132/89; PULSE 83; RESP 16; TEMP 35.8; BMI 26.6
--- NOTE | 2020-11-11 12:55 | PCM.WC.PN ---
Type of Wound Date of Service: 11/11/20 Chief Complaint: Right ischial pressure sore, Stage IV, with myocutaneous flap closure and mild flap compromise medially. History of Wound: Surgery 09/10/20 - 1. Excision recurrent right ischial pressure sore, Stage IV, with partial ostectomy for osteomyelitis. 2. Reconstruction with right hamstrings V-Y myocutaneous advancement flap. Surgery 05/27/20 - 1. Excision right ischial pressure sore, Stage IV, with partial ostectomy for osteomyelitis. 2. Reconstruction with right hamstrings myocutaneous advancement flap. 3. Placement AmnioFill placental connective tissue powder (500 mg). Operative culture (05/27/20), soft tissue, showed Corynebacterium striatum and Anaerobic cocci. Operative culture (05/27/20), bone, showed Anaerobic cocci. Treatment with Zosyn until 07/08/20. Operative culture (09/10/20), soft tissue, showed Corynebacterium striatum. Operative culture (09/10/20), bone, was negative. She was discharged on Augmentin and has finished them. She also has chronic yeast in her urine. She takes Nizoral daily. Pathology from 05/27/20 was positive for acute and chronic osteomyelitis. Pathology from 09/10/20 was negative. Wound care- Silver dressing changes daily to medial edge of flap incison on posterior thigh. CT Pelvis from 11/03/19 showed There is a 2.6 cm x 3.5 cm soft tissue defect in the medial proximal right. buttock with the surrounding soft tissue swelling and edema. The inflammatory changes extend into the right inferior pubic ramus with the findings suggestive of a possible bony destruction secondary to osteomyelitis. Dense calcifications are seen in the soft tissues overlying both buttocks and the left side of the sacrum. There is also evidence of a 3.2 cm x 4.1 cm soft tissue density involving the tip of the sacrum and coccyx. There is also evidence of multiple calcific densities and ossifications overlying the right greater trochanter. There is also evidence of soft tissue swelling at that site. Prealbumin from 09/11/20 was 16.9. Encourage nutritional supplementation with protein to help the healing process. Today she denies fever. Her appetite is ok. At the time of discharge from the hospital in August after her last surgery, her Hgb was 9.0 and her Potassium was 3.7. She will have these labs repeated within the next month. Progress of Wound: Improved. - Physical Exam Vital Signs Temp Pulse Resp BP 96.5 F L 83 16 132/89 H 11/11/20 10:51 11/11/20 10:51 11/11/20 10:51 11/11/20 10:51 Wound Measurements and Assessment WC - Nurse 1 - General Ulcer Measurement Start: 11/11/20 10:48 Freq: Status: Active Protocol: Activity Type Activity Date Activity User E-Sign Co-Sign Detail Recorded Client Recorded Date Recorded By Document 11/11/20 10:51 [facility] [id number] 11/11/20 11:00 [facility] 11/11/20 10:51 Wound Center Nurse 1 [Ulcer Assessment] 5-right ischium -Combined with other wound No -Current Size (cm) - Length 0.1 -Current Size (cm) - Width 0.1 -Current Size (cm) - Depth 0.1 -Total Square Cm 0.01 -Epithelialization Large 67-100% #4- R GLUTEAL FOLD -Combined with other wound No -Current Size (cm) - Length 1 -Current Size (cm) - Width 0.5 -Current Size (cm) - Depth 0.1 -Total Square Cm 0.5 -Photo Taken No -Epithelialization None Present -Tunneling No -Undermining/Tunneling No -Circular Undermining No -Exudate Amt Small -Exudate Type Serosanguineous -Wound Margin Distinct, Outline Attached -Granulation Amt Large (67-100%) -Granulation Quality Red -Slough/Fibrin Yes -Necrosis Amt Small (1-33%) -Necrotic Tissue Type Adherent Slough -Texture (Janene-wound Skin Appearance) Assessed, Scarring -Moisture (Janene-wound Skin Appearance Assessed ) -Color (Janene-wound Skin Appearance) Assessed -Temperature (Janene-wound Skin No Abnormality Appearance) (Pt Warm) -Tenderness on Palpation (Janene-wound No Skin Appearance) -Ulcer Cleansing Rinsed/ Irrigated with Saline -Foul Odor after Cleansing No -Anesthetic Used 4% Lidocaine Solution WC - Nurse 2 - General Ulcer CM Notes Start: 11/11/20 10:48 Freq: Status: Active Protocol: Activity Type Activity Date Activity User E-Sign Co-Sign Detail Recorded Client Recorded Date Recorded By Document 11/11/20 11:17 [facility] [id number] 11/11/20 11:19 [facility] 11/11/20 11:17 Wound Center Nurse 2 [Procedure/Treatment] 5-right ischium -Time 11:17 -Correct Patient No -Correct Side, Site, Position No -Correct Procedure No -Procedure Performed No -Tissue Removed Dermis, Subcutaneous -Post Debridement (cm) - Length 1 -Post Debridement (cm) - Width 0 -Post Debridement (cm) - Depth 0 -Total Square (Post) (cm) 0 -Area of Debridement (cm) - Length 0 -Area of Debridement (cm) - Width 0 -Total Square (Area) (cm) 0 -Tunneling No -Undermining/Tunneling No -Circular Undermining No -Wound/Ulcer Outcome Healed- Epithelialized -Ulcer Cleansing Rinsed/ Irrigated with Saline -Foul Odor after Cleansing No -Bioengineered Tissue No -Bleeding Controlled with Pressure -Offloading No -Treatment Response Procedure Tolerated Well -Debridement - Subq, 1st 20sq cm Yes #4- R GLUTEAL FOLD -Time 11:18 -Correct Patient Yes -Correct Side, Site, Position Yes -Correct Procedure Yes -Procedure Performed Yes -Type of Procedure Debridement -Clinical Debridement Subcutaneous -Tissue Removed Subcutaneous -Post Debridement (cm) - Length 1 -Post Debridement (cm) - Width 0.5 -Post Debridement (cm) - Depth 0.1 -Total Square (Post) (cm) 0.5 -Area of Debridement (cm) - Length 1 -Area of Debridement (cm) - Width 0.5 -Total Square (Area) (cm) 0.5 -Tunneling No -Undermining/Tunneling No -Circular Undermining No -Wound/Ulcer Outcome Not Healed -Ulcer Cleansing Rinsed/ Irrigated with Saline -Foul Odor after Cleansing No -Bioengineered Tissue No -Bleeding Controlled with Pressure -Offloading No -Treatment Response Procedure Tolerated Well -Debridement - Subq, 1st 20sq cm Yes [See Physician Procedure note for Specifics] Pain Scale: 0-10 Numeric [Pain] -Is Patient Pain Free? Yes WC - Nurse 3 - General Ulcer D/C NN Start: 11/11/20 10:48 Freq: Status: Active Protocol: Activity Type Activity Date Activity User E-Sign Co-Sign Detail Recorded Client Recorded Date Recorded By Document 11/11/20 11:28 [facility] [id number] 11/11/20 11:29 [facility] 11/11/20 11:28 Wound Care Nurse 3 [Wound Dressing] #4- R GLUTEAL FOLD -Ulcer Cleansing Rinsed/ Irrigated with Saline -Foul Odor after Cleansing No -Primary Dressing Applied C Hydrogel ($) -Primary Dressing Covered/Secured Dry Gauze, with Secured with Tape [Post Procedure Tolerated] -Treatment Response Procedure Tolerated Well Pain Scale: 0-10 Numeric [Pain] -Is Patient Pain Free? Yes WC - Visit Discharge [Visit Discharge Information] -Discharge Condition Stable -Ambulatory Status Wheelchair -Transportation Private Auto -Accompanied by Debridement Note Post-Debridement Measurements/Treatment WC - Nurse 2 - General Ulcer CM Notes Start: 11/11/20 10:48 Freq: Status: Active Protocol: Activity Type Activity Date Activity User E-Sign Co-Sign Detail Recorded Client Recorded Date Recorded By Document 11/11/20 11:17 [id number] 11/11/20 11:19 11/11/20 11:17 Wound Center Nurse 2 5-right ischium -Time 11:17 -Correct Patient No -Correct Side, Site, Position No -Correct Procedure No -Procedure Performed No -Tissue Removed Dermis, Subcutaneous -Post Debridement (cm) - Length 1 -Post Debridement (cm) - Width 0 -Post Debridement (cm) - Depth 0 -Total Square (Post) (cm) 0 -Area of Debridement (cm) - Length 0 -Area of Debridement (cm) - Width 0 -Total Square (Area) (cm) 0 -Tunneling No -Undermining/Tunneling No -Circular Undermining No -Wound/Ulcer Outcome Healed- Epithelialized -Ulcer Cleansing Rinsed/ Irrigated with Saline -Foul Odor after Cleansing No -Bioengineered Tissue No -Bleeding Controlled with Pressure -Offloading No -Treatment Response Procedure Tolerated Well -Debridement - Subq, 1st 20sq cm Yes #4- R GLUTEAL FOLD -Time 11:18 -Correct Patient Yes -Correct Side, Site, Position Yes -Correct Procedure Yes -Procedure Performed Yes -Type of Procedure Debridement -Clinical Debridement Subcutaneous -Tissue Removed Subcutaneous -Post Debridement (cm) - Length 1 -Post Debridement (cm) - Width 0.5 -Post Debridement (cm) - Depth 0.1 -Total Square (Post) (cm) 0.5 -Area of Debridement (cm) - Length 1 -Area of Debridement (cm) - Width 0.5 -Total Square (Area) (cm) 0.5 -Tunneling No -Undermining/Tunneling No -Circular Undermining No -Wound/Ulcer Outcome Not Healed -Ulcer Cleansing Rinsed/ Irrigated with Saline -Foul Odor after Cleansing No -Bioengineered Tissue No -Bleeding Controlled with Pressure -Offloading No -Treatment Response Procedure Tolerated Well -Debridement - Subq, 1st 20sq cm Yes Pain Scale: 0-10 Numeric Is Patient Pain Free? Yes - Nurse 3 - General Ulcer D/C NN Start: 11/11/20 10:48 Freq: Status: Active Protocol: Activity Type Activity Date Activity User E-Sign Co-Sign Detail Recorded Client Recorded Date Recorded By Document 11/11/20 11:28 [facility] [id number] 11/11/20 11:29 [facility] 11/11/20 11:28 Wound Care Nurse 3 #4- R GLUTEAL FOLD -Ulcer Cleansing Rinsed/ Irrigated with Saline -Foul Odor after Cleansing No -Primary Dressing Applied C Hydrogel ($) -Primary Dressing Covered/Secured with Dry Gauze, Secured with Tape Treatment Response Procedure Tolerated Well Pain Scale: 0-10 Numeric Is Patient Pain Free? Yes - Visit Discharge Discharge Condition Stable Ambulatory Status Wheelchair Transportation Private Auto Accompanied by Wound debrided: #4 Right ischial area, medial aspect of flap. Laterality: Right Wound Grade/Stage: IV. Type of Debridement: Excisional debridement Anesthesia Used: 4% Lidocaine Solution Depth: Down to and including healthy tissue, in the subcutaneous layer Percentage of wound debrided: 100 Instrument Used: 3mm curette Tissue Removed: subcutaneous tissue. Severity: Fat Layer Exposed Amount of bleeding with debridement: Mild Bleeding Controlled with: Pressure Patient tolerated procedure well Assessment/Plan Assessment: 1. Right ischial pressure sore, Stage IV. 2. Osteomyelitis. 3. Multiple sclerosis. 4. s/p excision right ischial pressure sore, Stage IV, with partial ostectomy for osteomyelitis and reconstruction with right hamstrings myocutaneous advancement flap and placement AmnioFill placental connective tissue powder (500 mg). 1. Right ischial pressure sore, Stage IV. 2. Osteomyelitis. 3. Multiple sclerosis. 4. s/p excision right ischial pressure sore, Stage IV, with partial ostectomy for osteomyelitis and reconstruction with right hamstrings myocutaneous advancement flap and placement AmnioFill placental connective tissue powder (500 mg). 5. Mild compromise medial aspect of myocutaneous flap. 5. Mild compromise medial aspect of myocutaneous flap. Plan: The compromised area of flap medially improving well with Silver dressing changes daily. It is more superficial and will change to Collagen Hydrogel dressing changes daily. Prealbumin from 09/11/20 was 16.9. Encourage nutritional supplementation with protein to help the healing process. His wound cultures from last surgery 09/10/20 showed Corynebacterium striatum in the soft tissue and was negative in the bone. She was treated wtih Augmentin and has finished them. She also has Yeast in her urine and is on Nizoral chronically. Pathology was negative for osteomyelitis even though it was positive for osteomyelitis back in April,. At the time of discharge from the hospital in August,, her Hgb was 9.0 and her Potassium was 3.7. She will have them repeated within the next month. Followup 3 weeks. 111xxx-113xx: [id number] Global Visit - ICD-10 - Z48.89, L89.314, M86.651, T86.828, G35
== END 2020-11-28 23:59 ==
LOC: WC 10:15
PROVIDERS: Family Provider Family Medicine; PCP Family Medicine; Referring Provider Nurse Practitioner Family; Visit Provider Nurse Practitioner Family
DX: L89.214 Pressure ulcer of right hip, stage 4 (principal); M86.651 Other chronic osteomyelitis, right thigh; R60.0 Localized edema; G35 Multiple sclerosis
CPT/HCPCS: 11042

== ENCOUNTER 2020-12-02 10:30 | Outpatient (RCR) | payer MEDICARE, SELFPAY ==
[2020-11-29 00:09] VITALS: BP 132/89; PULSE 83; RESP 16; TEMP 35.8
[2020-12-02 10:43] VITALS: BP 117/69; PULSE 86; RESP 16; TEMP 36; BMI 26.6
--- NOTE | 2020-12-02 14:38 | PCM.WC.PN ---
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 History of Wound: She is healed today. Surgery 09/10/20 - 1. Excision recurrent right ischial pressure sore, Stage IV, with partial ostectomy for osteomyelitis. 2. Reconstruction with right hamstrings V-Y myocutaneous advancement flap. Surgery 05/27/20 - 1. Excision right ischial pressure sore, Stage IV, with partial ostectomy for osteomyelitis. 2. Reconstruction with right hamstrings myocutaneous advancement flap. 3. Placement AmnioFill placental connective tissue powder (500 mg). Operative culture (05/27/20), soft tissue, showed Corynebacterium striatum and Anaerobic cocci. Operative culture (05/27/20), bone, showed Anaerobic cocci. Treatment with Zosyn until 07/08/20. Operative culture (09/10/20), soft tissue, showed Corynebacterium striatum. Operative culture (09/10/20), bone, was negative. She was discharged on Augmentin and has finished them. She also has chronic yeast in her urine. She takes Nizoral daily. Pathology from 05/27/20 was positive for acute and chronic osteomyelitis. Pathology from 09/10/20 was negative. Wound care- Silver dressing changes daily to medial edge of flap incison on posterior thigh. CT Pelvis from 11/03/19 showed There is a 2.6 cm x 3.5 cm soft tissue defect in the medial proximal right. buttock with the surrounding soft tissue swelling and edema. The inflammatory changes extend into the right inferior pubic ramus with the findings suggestive of a possible bony destruction secondary to osteomyelitis. Dense calcifications are seen in the soft tissues overlying both buttocks and the left side of the sacrum. There is also evidence of a 3.2 cm x 4.1 cm soft tissue density involving the tip of the sacrum and coccyx. There is also evidence of multiple calcific densities and ossifications overlying the right greater trochanter. There is also evidence of soft tissue swelling at that site. Prealbumin from 09/11/20 was 16.9. Encourage nutritional supplementation with protein to help the healing process. Today she denies fever. Her appetite is ok. At the time of discharge from the hospital in August after her last surgery, her Hgb was 9.0 and her Potassium was 3.7. She will have these labs repeated within the next month. Progress of Wound: Right posterior thigh is healed. - Physical Exam Vital Signs Temp Pulse Resp BP 96.8 F L 86 16 117/69 12/02/20 10:43 12/02/20 10:43 12/02/20 10:43 12/02/20 10:43 General: Alert, Oriented x3, Cooperative HEENT: Atraumatic Oral: Moist Mucosa Lungs: Normal air movement Cardiovascular: Regular rate Extremities: Capillary Refill Less than 3 Seconds Skin: Ulcer/ Wound - Right posterior thigh is healed. Incision is dry and intact. Wound Measurements and Assessment WC - Nurse 1 - General Ulcer Measurement Start: 12/02/20 10:42 Freq: Status: Discharge Protocol: Activity Type Activity Date Activity User E-Sign Co-Sign Detail Recorded Client Recorded Date Recorded By Document 12/02/20 10:43 [facility] [id number] 12/02/20 10:54 [facility] Edit Status 12/02/20 11:21 BKG DAEMON Active=>Discharge [id number] 12/02/20 11:21 JOSÉ MIGUEL DAEMON 12/02/20 10:43 Wound Center Nurse 1 [Ulcer Assessment] #4- R GLUTEAL FOLD -Combined with other wound No -Current Size (cm) - Length 0.1 -Current Size (cm) - Width 0.1 -Current Size (cm) - Depth 0.1 -Total Square Cm 0.01 -Epithelialization Large 67-100% -Texture (Janene-wound Skin Appearance) Assessed -Moisture (Janene-wound Skin Appearance Assessed,Dry/ ) Scaly -Color (Janene-wound Skin Appearance) Assessed WC - Nurse 2 - General Ulcer CM Notes Start: 12/02/20 10:42 Freq: Status: Discharge Protocol: Activity Type Activity Date Activity User E-Sign Co-Sign Detail Recorded Client Recorded Date Recorded By Document 12/02/20 10:59 PL [id number] 12/02/20 11:02 PL Edit Status 12/02/20 11:21 BKG DAEMON Active=>Discharge [id number] 12/02/20 11:21 BKG DAEMON 12/02/20 10:59 Wound Center Nurse 2 [Procedure/Treatment] -Procedure Performed No -Wound/Ulcer Outcome Healed- Epithelialized [See Physician Procedure note for Specifics] Pain Scale: 0-10 Numeric [Pain] -Is Patient Pain Free? Yes - Nurse 3 - General Ulcer D/C NN Start: 12/02/20 10:42 Freq: Status: Discharge Protocol: Activity Type Activity Date Activity User E-Sign Co-Sign Detail Recorded Client Recorded Date Recorded By Edit Status 12/02/20 11:21 BKG DAEMON Active=>Discharge [id number] 12/02/20 11:21 BKG DAEMON Musculoskeletal: No Tenderness to Palpation of Joints or Extremities Neurological: Cranial nerves II-XII grossly intact Psych/Mental Status: Normal Affect, Appropriate Debridement Note Post-Debridement Measurements/Treatment - Nurse 2 - General Ulcer CM Notes Start: 12/02/20 10:42 Freq: Status: Discharge Protocol: Activity Type Activity Date Activity User E-Sign Co-Sign Detail Recorded Client Recorded Date Recorded By Document 12/02/20 10:59 PL [id number] 12/02/20 11:02 PL 12/02/20 10:59 Wound Center Nurse 2 #4- R GLUTEAL FOLD -Procedure Performed No -Wound/Ulcer Outcome Healed- Epithelialized Pain Scale: 0-10 Numeric Is Patient Pain Free? Yes No debridement was completed today Assessment/Plan Assessment: 1. Right ischial pressure sore, Stage IV. 2. Osteomyelitis. 3. Multiple sclerosis. 4. s/p excision right ischial pressure sore, Stage IV, with partial ostectomy for osteomyelitis and reconstruction with right hamstrings myocutaneous advancement flap and placement AmnioFill placental connective tissue powder (500 mg). 1. Right ischial pressure sore, Stage IV. 2. Osteomyelitis. 3. Multiple sclerosis. 4. s/p excision right ischial pressure sore, Stage IV, with partial ostectomy for osteomyelitis and reconstruction with right hamstrings myocutaneous advancement flap and placement AmnioFill placental connective tissue powder (500 mg). 5. Mild compromise medial aspect of myocutaneous flap. 5. Mild compromise medial aspect of myocutaneous flap. Plan: She is healed today. Continue to keep the incision of the flap dry. Follow up as needed. The compromised area of flap medially improving well with Silver dressing changes daily. It is more superficial and will change to Collagen Hydrogel dressing changes daily. Prealbumin from 09/11/20 was 16.9. Encourage nutritional supplementation with protein to help the healing process. His wound cultures from last surgery 09/10/20 showed Corynebacterium striatum in the soft tissue and was negative in the bone. She was treated wtih Augmentin and has finished them. She also has Yeast in her urine and is on Nizoral chronically. Pathology was negative for osteomyelitis even though it was positive for osteomyelitis back in April,. At the time of discharge from the hospital in August,, her Hgb was 9.0 and her Potassium was 3.7. She will have them repeated within the next month. Followup 3 weeks. 111xxx-113xx: [id number] Global Visit
== END 2020-12-02 11:21 | disposition home or self-care (01) ==
LOC: WC 10:30
PROVIDERS: Family Provider Family Medicine; PCP Family Medicine; Referring Provider Nurse Practitioner Family; Visit Provider Nurse Practitioner Family
DX: Z09 Encounter for follow-up examination after completed treatment for conditions other than malignant neoplasm (principal); G35 Multiple sclerosis
CPT/HCPCS: 99212; G0463

== ENCOUNTER 2021-07-25 10:00 | Outpatient (RCR) | payer MEDICARE, SELFPAY ==
[2021-07-04 10:42] VITALS: BP 149/82; PULSE 89; RESP 18; TEMP 36.6; BMI 62.1
--- NOTE | 2021-07-04 13:08 | HP.PCM_ITS ---
History of Present Illness Date of Service: 07/04/21 Chief Complaint: Right posterior labial pressure sore, Stage III History of Wound: Zoey is a 66 yo female that is bed bound/wheelchair bound from complications of MS that presents to the wound healing center today for evaluation and treatment of a pressure ulcer of her right posterior labia that has been present since January 2021. She had been doing well but had a pressure ulcer of her right posterior labia develop in January 2021 after an abrasion from transferring after a shower. Her began applying Santyl and Aquacel Ag for several weeks and then Aquacel Ag alone for moderate drainage to the wound at that time and it was nearly healed until several weeks ago she was at a bridal shower and was out of bed for a longer period of time and the following day there was significant bruising to the area and it began to become larger and drain more. For the last 2 weeks he had returned to applying Santyl and Aquacel Extra to the wound but was not noticing significant improvement and called to be seen at the wound healing center. Her helps with her care and he reports that she has significant vaginal drainage for the last several months since she has been being treated with Estradiol for vaginal itching. She uses a tablet vaginally 3 times/week and her notes that there is copious clear-king vaginal discharge. She has a suprapubic catheter in place so it is not likely that it is urine that is leaking. He finds it very difficult to keep the wound dry due to this drainage. She has an upcoming appointment with her forest fire officer on 07/16/2021 for recheck. She currently is not taking any antibiotics and she has not undergone any wound cultures of this ulcer. She denies fever, chills, nausea, vomiting or other systemic signs of infection. There is moderate to heavy drainage from the ulcer and they have been using Mepilix with border and Aquacel Ag and Santyl for the last 2 weeks. 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 PFSH Home Medications ascorbic acid (vitamin C) 1 tab PO BID 11/03/19 [History Last Taken 05/25/20] baclofen 1 - 2 tab PO Q8H PRN PRN 11/03/19 [History Last Taken 09/10/20] cholecalciferol (vitamin D3) 1,000 unit PO DINNER 11/03/19 [History Last Taken 05/25/20] cholestyramine (with sugar) 1 packet PO DAILY 11/03/19 [History Last Taken 05/26/20] cranberry extract 200 mg PO DINNER 11/03/19 [History Last Taken 05/25/20] letrozole 1 tab PO DAILY 11/03/19 [History Last Taken Unknown] oxybutynin chloride 2 tab PO BID 11/03/19 [History Last Taken 05/26/20] Pro Stat 5 ml PO DINNER 04/25/20 [History Last Taken 05/25/20] nitrofurantoin macrocrystal 50 mg PO DINNER 04/25/20 [History Last Taken 05/25/20] Lactobac. rhamnosus GG-inulin 2 ea PO QHS 05/26/20 [History Last Taken 05/26/20] magnesium hydroxide 30 ml PO PRN PRN 05/26/20 [History Last Taken 05/25/20] metoprolol tartrate 25 mg PO BID 05/26/20 [History Last Taken 09/10/20] nystatin 1 applic TOPICAL BID 05/26/20 [History Last Taken 05/26/20] acetic acid 60 ml IR QHS 09/02/20 [History Last Taken Unknown] docusate sodium 100 mg PO DAILY 09/02/20 [History Last Taken Unknown] amoxicillin-pot clavulanate 500 mg PO Q12H #42 tab 09/15/20 [Rx Last Taken Unknown] baclofen 20 mg PO TID tab 09/15/20 [Rx Last Taken Unknown] docusate sodium 100 mg PO BID cap 09/15/20 [Rx Last Taken Unknown] food supplemt, lactose-reduced 120 ml PO 4X/DAY liquid 09/15/20 [Rx Last Taken Unknown] ketoconazole 200 mg PO DAILY tab 09/15/20 [Rx Last Taken Unknown] ketoconazole 200 mg PO DAILY #30 tab 09/15/20 [Rx Last Taken Unknown] metoprolol tartrate 25 mg PO BID tab 09/15/20 [Rx Last Taken Unknown] mupirocin 1 applic TOPICAL .QDAILY #3 tube 09/15/20 [Rx Last Taken Unknown] nystatin 1 applic TOPICAL BID bottle 09/15/20 [Rx Last Taken Unknown] polysaccharide iron complex 150 mg PO DAILYCM #30 cap 09/15/20 [Rx Last Taken Unknown] potassium chloride 20 meq PO BIDCM #60 tab 09/15/20 [Rx Last Taken Unknown] promethazine 25 mg PO 4X/DAY PRN PRN #30 tab 09/15/20 [Rx Last Taken Unknown] acetaminophen 650 mg PO 10/07/20 [History Last Taken Unknown] clobetasol 1 applic TOPICAL BID 07/04/21 [History Last Taken Unknown] estradiol 10 mcg VAGINAL QODAY 07/04/21 [History Last Taken Unknown] Allergy/AdvReac Type Severity Reaction Status Date / Time bacitracin Allergy Rash Verified 09/10/20 10:23 [From Neosporin ([id number])] neomycin Allergy Rash Verified 09/10/20 10:23 [From Neosporin ([id number])] ondansetron [From Zofran] Allergy palpitation Verified 09/10/20 10:23 s polymyxin B Allergy Rash Verified 09/10/20 10:23 [From Neosporin ([id number])] Sulfa (Sulfonamide Allergy Rash Verified 09/10/20 10:23 Antibiotics) Social History Smoking Status: Never smoker ROS Constitutional Constitutional: Reports as per HPI; Denies chills or fever(s) Eyes Eyes: Denies blurry vision or loss of vision ENT HEENT: Denies dizziness or hearing loss Cardiovascular Cardiovascular: Denies chest pain, chest pain at rest or dyspnea at rest Respiratory/Chest Respiratory/Chest: Denies dry cough or shortness of breath at rest Gastrointestinal Gastrointestinal: Denies diarrhea, nausea or vomiting Musculoskeletal Musculoskeletal: Reports muscle spasms, muscle weakness and stiffness Integumentary Integumentary: Reports skin ulcer Neurologic Neurologic: Reports weakness Psychiatric Psychiatric: Denies mood swings or suicidal ideation Hematologic/Lymphatic Hematologic/Lymphatic: Denies easy bleeding or easy bruising Vital Signs Vital Signs Vital Signs: 07/04/21 10:42 Temperature 97.8 F Temperature Source Temporal Pulse Rate 89 Respiratory Rate 18 Blood Pressure 149/82 H Blood Pressure Mean 104 Blood Pressure Source Monitor Blood Pressure Position Semi-Fowlers Blood Pressure Location Left Arm Weight Weight: 180 kg Body Mass Index (BMI) 62.1 Physical Exam Const alert, oriented x3 and no apparent distress General Appearance: cooperative and comfortable Nutritional Appearance: obese HEENT normocephalic and head/scalp atraumatic Mouth: oral and palatal mucosa normal Eyes PERRL Neck no lymphadenopathy Resp normal respiratory effort Effort and Inspection: able to speak in complete sentences Auscultation: clear to auscultation bilaterally Cardio regular rate and regular rhythm Speculum Exam - Vagina: vaginal discharge clear and king Skin Wounds: wounds noted Wound Narrative: as in clinical panel Neuro oriented x3 Psych thought process normal and denies suicidal ideation Debridement Note Debridement Note Post-Debridement Measurements and Additional Note: Post-Debridement Measurements/Treatment - Nurse 1 - General Ulcer Assessment Start: 07/04/21 10:03 Freq: Status: Active Protocol: [email or web address].LOWEXT Activity Type Activity Date Activity User E-Sign Co-Sign Detail Recorded Client Recorded Date Recorded By Document 07/04/21 10:42 [id number] 07/04/21 10:48 ANTHONY 07/04/21 10:42 - Today's Visit Information Type of service Follow-up Visit (Physician/KIER HAND ) Arrival Mode Wheelchair Transfer Assistance Manual Patient Identification Verified (Name & Yes ) Patient Requires Transmission-Based No Precautions Height and Weight Height 5 ft 7 in Weight 180 kg Weight in Pounds 396.8 lbs Body Mass Index (BMI) 62.1 BMI Classification Obese BSA - Miguel 2.71 Vital Signs Temperature (97.8 F-99.1 F) 97.8 F Temperature Source Temporal Pulse Rate (60-100) 89 Pulse Location Monitor Respiratory Rate (12-18) 18 Respiratory rate source Observation Blood Pressure (90/60-120/80) 149/82 H Blood Pressure Mean 104 Source Monitor Position Semi-Fowlers Blood Pressure Location Left Arm History Since Last Visit- (Skip if this is Patient's initial visit) Have you changed medications since your No last visit? Any new allergies or adverse reactions No Had a fall/change in ADL's that may No increase risk of falls Signs or symptoms of abuse and/or No neglect since last visit Have you been in the hospital since your No last visit? Has dressing in place as prescribed Yes Has compression in place as prescribed No Has offloadiing in place as prescribed No Experienced any changes in pain level or No management Pain Scale: 0-10 Numeric Is Patient Pain Free? Yes R labia -Description Aching -Intensity 8 -Duration (hours) Acute -Pain Behavior Withdrawal from Touch -Pain Aggravating Factors Sitting -Alleviating Factors/Interventions Medication -Effectiveness of Alleviating Factor/ Minimally Intervention effective WC - Nurse 1 - General Ulcer Measurement Start: 07/04/21 10:03 Freq: Status: Active Protocol: Activity Type Activity Date Activity User E-Sign Co-Sign Detail Recorded Client Recorded Date Recorded By Document 07/04/21 10:42 RB [id number] 07/04/21 10:48 RB 07/04/21 10:42 Wound Center Nurse 1 6. R posterior labia -Combined with other wound No -Current Size (cm) - Length 3 -Current Size (cm) - Width 2 -Current Size (cm) - Depth 0.9 -Total Square Cm 6 -Photo Taken Yes -Tunneling No -Undermining/Tunneling No -Circular Undermining No -Exudate Amt Medium -Exudate Type Serosanguineous -Wound Margin Distinct, Outline Attached -Granulation Amt Medium (34-66%) -Granulation Quality [place] -Slough/Fibrin Yes -Necrosis Amt Small (1-33%) -Necrotic Tissue Type Adherent Slough -Structure Exposed N/A -Texture (Janene-wound Skin Appearance) Assessed, Excoriation -Moisture (Janene-wound Skin Appearance) Assessed -Color (Janene-wound Skin Appearance) Assessed, Erythema -Tenderness on Palpation (Janene-wound No Skin Appearance) -Ulcer Cleansing Wound Cleanser -Foul Odor after Cleansing No -Anesthetic Used 4% Lidocaine Solution WC - Nurse 2 - General Ulcer CM Notes Start: 07/04/21 10:03 Freq: Status: Active Protocol: Activity Type Activity Date Activity User E-Sign Co-Sign Detail Recorded Client Recorded Date Recorded By Document 07/04/21 10:55 MW [id number] 07/04/21 11:29 MW 07/04/21 10:55 Wound Center Nurse 2 -Time 11:00 -Correct Patient Yes -Correct Side, Site, Position Yes -Correct Procedure Yes -Procedure Performed Yes -Type of Procedure Debridement -Clinical Debridement Subcutaneous -Tissue Removed Subcutaneous -Post Debridement (cm) - Length 4.5 -Post Debridement (cm) - Width 3.2 -Post Debridement (cm) - Depth 1.7 -Total Square (Post) (cm) 14.40 -Area of Debridement (cm) - Length 4.5 -Area of Debridement (cm) - Width 3.2 -Total Square (Area) (cm) 14.40 -Tunneling No -Undermining/Tunneling No -Circular Undermining No -Wound/Ulcer Outcome Not Healed -Ulcer Cleansing Rinsed/ Irrigated with Saline -Foul Odor after Cleansing No -Bioengineered Tissue No -Bleeding Controlled with Pressure -Offloading No -Treatment Response Procedure Tolerated Well -Debridement - Subq, 1st 20sq cm Yes Pain Scale: 0-10 Numeric Is Patient Pain Free? Yes - Nurse 3 - General Ulcer D/C NN Start: 07/04/21 10:03 Freq: Status: Active Protocol: Activity Type Activity Date Activity User E-Sign Co-Sign Detail Recorded Client Recorded Date Recorded By Document 07/04/21 12:18 [id number] 07/04/21 12:19 07/04/21 12:18 Wound Care Nurse 3 6. R posterior labia -Ulcer Cleansing Wound Cleanser -Primary Dressing Applied Aquacel AG 4x4 -Other Dressing hydrogel, bordered foam dressing -Aquacel AG 4x4 2 Treatment Response Procedure Tolerated Well Pain Scale: 0-10 Numeric Is Patient Pain Free? Yes - Visit Discharge Discharge Condition Stable Ambulatory Status Wheelchair Transportation Private Auto Medication Reconcilliation completed & No provided to patient/care provider Clinical Summary of Care Provided Yes Wound debrided: right posterior labia Laterality: Right Wound Grade/Stage: Stage III Type of Debridement: Excisional debridement Anesthesia Used: 4% Lidocaine Solution and Cetacaine Depth: Down to and including healthy tissue and in the subcutaneous layer Percentage of wound debrided: 100 Instrument Used: #15 blade and Forceps Tissue Removed: Yellow slough, devitalized tissue Severity: Fat Layer Exposed Amount of bleeding with debridement: Mild Bleeding Controlled with: Compression and gauze Patient tolerated procedure: Patient tolerated procedure well Assessment/Plan Assessment/Plan (1) Multiple sclerosis: CODE(S): G35 - Multiple sclerosis (2) Psoriasis: CODE(S): L40.9 - Psoriasis, unspecified (3) Debility: CODE(S): R53.81 - Other malaise (4) Pressure ulcer of right buttock, stage 3: CODE(S): L89.313 - Pressure ulcer of right buttock, stage 3 PLAN: Zoey's ulcer was evaluated and debrided today at the wound healing center. Her ulcer would benefit from treatment with a wound vac due to the location and depth and heavy drainage in order to heal the ulcer and prevent the need for f urther surgery or infection of the bone and underlying tissue and will apply for the approval for use of this to her insurance. Until this approval is received, will have her dress the ulcer with Santyl to the wound bed, cover with Aquacel Ag and cover with moisture barrier dressing with cushion such as mepilix with border or optifoam with border with changes daily and as needed for soiling. Will have her decrease the frequency of use of the Estradiol vaginal tablet to once weekly until she sees FLANGING MACHINE OPERATOR. Will start her empirically on Clindamycin for treatment of cellulitis of the ulcer to cover for anaerobic bacteria as she reports a reaction to Flagyl. Wound culture taken today and will adjust antibiotic as needed. Will obtain recent labs. ENcouraged increased protein intake to support nutrition and optimize healing. Encouraged offloading of her right buttock/labia as much as possible in order to heal the ulcer. She and her were advised to call with any concerns or increased drain age, erythema or odor. She will return in 1 week for wound care.
[2021-07-11 12:19] VITALS: BP 120/76; PULSE 94; RESP 18; TEMP 36.1; BMI 62.1
--- NOTE | 2021-07-11 14:25 | PN.PCM_ITS ---
History of Present Illness Date of Service: 07/11/21 Chief Complaint: Right posterior labial pressure sore, Stage III History of Wound: Zoey is a 66 yo female that is bed bound/wheelchair bound from complications of MS that presents to the wound healing center today for evaluation and treatment of a pressure ulcer of her right posterior labia that has been present since January 2021. She had been doing well but had a pressure ulcer of her right posterior labia develop in January 2021 after an abrasion from transferring after a shower. Her began applying Santyl and Aquacel Ag for several weeks and then Aquacel Ag alone for moderate drainage to the wound at that time and it was nearly healed until several weeks ago she was at a bridal shower and was out of bed for a longer period of time and the following day there was significant bruising to the area and it began to become larger and drain more. For the last 2 weeks he had returned to applying Santyl and Aquacel Extra to the wound but was not noticing significant improvement and called to be seen at the wound healing center. Her helps with her care and he reports that she has significant vaginal drainage for the last several months since she has been being treated with Estradiol for vaginal itching. She uses a tablet vaginally 3 times/week and her notes that there is copious clear-king vaginal discharge. She has a suprapubic catheter in place so it is not likely that it is urine that is leaking. He finds it very difficult to keep the wound dry due to this drainage. She has an upcoming appointment with her bullion weigher on 07/16/2021 for recheck. She currently is not taking any antibiotics and she has not undergone any wound cultures of this ulcer. She denies fever, chills, nausea, vomiting or other systemic signs of infection. There is moderate to heavy drainage from the ulcer and they have been using Mepilix with border and Aquacel Ag and Santyl for the last 2 weeks. 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 Progress of Wound: Zoey's ulcer is somewhat improved. She tolerated treatment with Santyl and received her wound vac supplies yesterday. She has developed a rash from Clindamycin. She has had improvement in vaginal discharge since decreasing the frequency of estradiol. Objective Data Objective Data Vital Signs: Vital Signs Temp Pulse Resp BP 97 F L 94 18 120/76 07/11/21 12:19 07/11/21 12:19 07/11/21 12:19 07/11/21 12:19 Weight: 180 kg Body Mass Index (BMI) 62.1 Lab / Micro Data Micro: Microbiology 07/04/21 11:15 Wound Abcess - Groin Gram Stain - Final 07/04/21 11:15 Wound Abcess - Groin Wound Culture - Final Escherichia coli Morganella morganii sp morgani Lactococcus garvieae 07/04/21 11:15 Wound Abcess - Groin Anaerobic Culture - Final Anaerobic cocci Prevotella disiens Physical Exam Const alert, oriented x3 and no apparent distress General Appearance: cooperative and comfortable Nutritional Appearance: obese HEENT normocephalic and head/scalp atraumatic Eyes PERRL Neck no lymphadenopathy Resp normal respiratory effort Effort and Inspection: able to speak in complete sentences Auscultation: clear to auscultation bilaterally Cardio regular rate and regular rhythm Speculum Exam - Vagina: vaginal discharge clear and king Skin Wounds: wounds noted Wound Narrative: as in clinical panel Neuro oriented x3 Psych thought process normal and denies suicidal ideation Debridement Note Debridement Note Post-Debridement Measurements and Additional Note: Post-Debridement Measurements/Treatment - Nurse 1 - General Ulcer Assessment Start: 07/04/21 10:03 Freq: Status: Active Protocol: LINK Activity Type Activity Date Activity User E-Sign Co-Sign Detail Recorded Client Recorded Date Recorded By Document 07/04/21 10:42 RB [id number] 07/04/21 10:48 RB Document 07/11/21 12:19 RB [id number] 07/11/21 12:23 RB 07/04/21 07/11/21 10:42 12:19 - Today's Visit Information Type of service Follow-up Visit Follow-up Visit (Physician/COCOA BEAN ROASTER HELPER (Physician/COCOA BEAN ROASTER HELPER ) ) Arrival Mode Wheelchair Wheelchair Transfer Assistance Manual None Patient Identification Verified (Name & Yes Yes ) Patient Requires Transmission-Based No No Precautions Height and Weight Height 5 ft 7 in Weight 180 kg Weight in Pounds 396.8 lbs Body Mass Index (BMI) 62.1 62.1 BMI Classification Obese Obese BSA - Miguel 2.71 Vital Signs Temperature (97.8 F-99.1 F) 97.8 F 97 F L Temperature Source Temporal Temporal Pulse Rate (60-100) 89 94 Pulse Location Monitor Monitor Respiratory Rate (12-18) 18 18 Respiratory rate source Observation Observation Blood Pressure (90/60-120/80) 149/82 H 120/76 Blood Pressure Mean (mm Hg) 104 90 Source Monitor Monitor Position Semi-Fowlers Semi-Fowlers Blood Pressure Location Left Arm Left Arm History Since Last Visit- (Skip if this is Patient's initial visit) Have you changed medications since your No No last visit? Any new allergies or adverse reactions No No Had a fall/change in ADL's that may No No increase risk of falls Signs or symptoms of abuse and/or No No neglect since last visit Have you been in the hospital since your No No last visit? Has dressing in place as prescribed Yes Yes Has compression in place as prescribed No No Has offloadiing in place as prescribed No No Experienced any changes in pain level or No No management Left Footwear Slipper Right Footwear Regular Shoe Pain Scale: 0-10 Numeric Is Patient Pain Free? Yes Yes R labia -Description Aching -Intensity 8 -Duration (hours) Acute -Pain Behavior Withdrawal from Touch -Pain Aggravating Factors Sitting -Alleviating Factors/Interventions Medication -Effectiveness of Alleviating Factor/ Minimally Intervention effective WC - Nurse 1 - General Ulcer Measurement Start: 07/04/21 10:03 Freq: Status: Active Protocol: Activity Type Activity Date Activity User E-Sign Co-Sign Detail Recorded Client Recorded Date Recorded By Document 07/04/21 10:42 RB [id number] 07/04/21 10:48 RB Document 07/11/21 12:19 RB [id number] 07/11/21 12:23 RB 07/04/21 07/11/21 10:42 12:19 Wound Center Nurse 1 6. R posterior labia -Combined with other wound No No -Current Size (cm) - Length 3 1.5 -Current Size (cm) - Width 2 4 -Current Size (cm) - Depth 0.9 1.8 -Total Square Cm 6 6.0 -Photo Taken Yes -Tunneling No -Undermining/Tunneling No Yes -Undermining/Tunneling Starts (O'clock 1 ) -Undermining/Tunneling Ends (O'clock) 2 -Maximum Distance (cm) 2.5 -Circular Undermining No -Exudate Amt Medium Medium -Exudate Type Serosanguineous Serosanguineous -Wound Margin Distinct, Thickened & Outline Rolled Under Attached -Granulation Amt Medium (34-66%) Medium (34-66%) -Granulation Quality [place] -Slough/Fibrin Yes Yes -Necrosis Amt Small (1-33%) Small (1-33%) -Necrotic Tissue Type Adherent Slough Adherent Slough -Structure Exposed N/A N/A -Texture (Janene-wound Skin Appearance) Assessed, Assessed, Excoriation Excoriation -Moisture (Janene-wound Skin Appearance) Assessed Assessed -Color (Janene-wound Skin Appearance) Assessed, Assessed Erythema -Temperature (Janene-wound Skin No Abnormality Appearance) (Pt Warm) -Tenderness on Palpation (Janene-wound No No Skin Appearance) -Ulcer Cleansing Wound Cleanser Wound Cleanser -Foul Odor after Cleansing No No -Anesthetic Used 4% Lidocaine 5% Lidocaine Solution Gel WC - Nurse 2 - General Ulcer CM Notes Start: 07/04/21 10:03 Freq: Status: Active Protocol: Activity Type Activity Date Activity User E-Sign Co-Sign Detail Recorded Client Recorded Date Recorded By Document 07/04/21 10:55 MW [id number] 07/04/21 11:29 MW Document 07/11/21 12:16 MW [id number] 07/11/21 12:23 MW 07/04/21 07/11/21 10:55 12:16 Wound Center Nurse 2 6. R posterior labia -Time 11:00 12:16 -Correct Patient Yes Yes -Correct Side, Site, Position Yes Yes -Correct Procedure Yes Yes -Procedure Performed Yes Yes -Type of Procedure Debridement Debridement -Clinical Debridement Subcutaneous Subcutaneous -Tissue Removed Subcutaneous Subcutaneous -Post Debridement (cm) - Length 4.5 3.4 -Post Debridement (cm) - Width 3.2 3.4 -Post Debridement (cm) - Depth 1.7 2.5 -Total Square (Post) (cm) 14.40 11.56 -Area of Debridement (cm) - Length 4.5 3.4 -Area of Debridement (cm) - Width 3.2 3.4 -Total Square (Area) (cm) 14.40 11.56 -Tunneling No No -Undermining/Tunneling No Yes -Undermining/Tunneling Starts (O'clock 10 ) -Undermining/Tunneling Ends (O'clock) 1 -Maximum Distance (cm) 2.5 -Circular Undermining No No -Wound/Ulcer Outcome Not Healed Not Healed -Ulcer Cleansing Rinsed/ Rinsed/ Irrigated with Irrigated with Saline Saline -Foul Odor after Cleansing No No -Bioengineered Tissue No No -Bleeding Controlled with Pressure Pressure -Offloading No No -Treatment Response Procedure Procedure Tolerated Well Tolerated Well -Debridement - Subq, 1st 20sq cm Yes Yes Pain Scale: 0-10 Numeric Is Patient Pain Free? Yes Yes - Nurse 3 - General Ulcer D/C NN Start: 07/04/21 10:03 Freq: Status: Active Protocol: Activity Type Activity Date Activity User E-Sign Co-Sign Detail Recorded Client Recorded Date Recorded By Document 07/04/21 12:18 [id number] 07/04/21 12:19 RB Document 07/11/21 14:14 RB [id number] 07/11/21 14:15 RB 07/04/21 07/11/21 12:18 14:14 Wound Care Nurse 3 6. R posterior labia -Ulcer Cleansing Wound Cleanser Wound Cleanser -Negative Pressure Wound Therapy Start -Setting (mmHg) 150 -Negative Pressure is Continuous -Primary Dressing Applied Aquacel AG 4x4 -Other Dressing hydrogel, bordered foam dressing -NPWT Application Charge ($) NPWT </= 50 sq cm -Aquacel AG 4x4 2 Janene-Wound Care Barrier Treatment Response Procedure Procedure Tolerated Well Tolerated Well Pain Scale: 0-10 Numeric Is Patient Pain Free? Yes - Visit Discharge Discharge Condition Stable Stable Ambulatory Status Wheelchair Wheelchair Transportation Private Auto Private Auto Medication Reconcilliation completed & No No provided to patient/care provider Clinical Summary of Care Provided Yes Yes Notes: transfer pt to chair per two nurses Wound debrided: right posterior labia Laterality: Right Wound Grade/Stage: Stage III Type of Debridement: Excisional debridement Anesthesia Used: 4% Lidocaine Solution and 5% Lidocaine Gel Depth: Down to and including healthy tissue and in the subcutaneous layer Percentage of wound debrided: 100 Instrument Used: 3mm curette Tissue Removed: Yellow slough, devitalized tissue Severity: Fat Layer Exposed Amount of bleeding with debridement: Mild Bleeding Controlled with: Compression and gauze Patient tolerated procedure: Patient tolerated procedure well Assessment/Plan Assessment/Plan (1) Multiple sclerosis: CODE(S): G35 - Multiple sclerosis (2) Psoriasis: CODE(S): L40.9 - Psoriasis, unspecified (3) Debility: CODE(S): R53.81 - Other malaise (4) Pressure ulcer of right buttock, stage 3: CODE(S): L89.313 - Pressure ulcer of right buttock, stage 3 PLAN: Zoey's ulcer was evaluated and debrided today at the wound healing center. Wound vac applied today. Will have Santyl applied to wound bed and then vac applied on next vac change. If vac loses seal and they are unable to get it to seal then will have her dress ulcer with Santyl to the wound bed, cover with Aquacel Ag and cover with moisture barrier dressing with cushion such as mepilix with border or optifoam with border with changes daily and as needed for soiling. Will have her decrease the frequency of use of the Estradiol vaginal tablet to a half tablet weekly. She will not see WIRE WORKER until after wound vac treatment is completed. Wound culture results reviewed. Will have her use Augmentin as she has reacted to Clindamycin. She does report severe diarrhea with Augmentin but was advised to increase probiotics and to take imodium as needed until she completes treatme nt. Will obtain recent labs. Encouraged increased protein intake to support nutrition and optimize healing. Encouraged offloading of her right buttock/labia as much as possible in order to heal the ulcer. She and her were advised to call with any concerns or increased drainage, erythema or odor. She will return in 1 week for nurse visit to change wound vac and 2 weeks for wound care.
[2021-07-25 10:20] VITALS: BP 128/88; PULSE 94; RESP 18; TEMP 36.1; BMI 62.1
--- NOTE | 2021-07-25 14:33 | PN.PCM_ITS ---
History of Present Illness Date of Service: 07/25/21 Chief Complaint: Right posterior labial pressure sore, Stage III History of Wound: Zoey is a 66 yo female that is bed bound/wheelchair bound from complications of MS that presents to the wound healing center today for evaluation and treatment of a pressure ulcer of her right posterior labia that has been present since January 2021. She had been doing well but had a pressure ulcer of her right posterior labia develop in January 2021 after an abrasion from transferring after a shower. Her began applying Santyl and Aquacel Ag for several weeks and then Aquacel Ag alone for moderate drainage to the wound at that time and it was nearly healed until several weeks ago she was at a bridal shower and was out of bed for a longer period of time and the following day there was significant bruising to the area and it began to become larger and drain more. For the last 2 weeks he had returned to applying Santyl and Aquacel Extra to the wound but was not noticing significant improvement and called to be seen at the wound healing center. Her helps with her care and he reports that she has significant vaginal drainage for the last several months since she has been being treated with Estradiol for vaginal itching. She uses a tablet vaginally 3 times/week and her notes that there is copious clear-king vaginal discharge. She has a suprapubic catheter in place so it is not likely that it is urine that is leaking. He finds it very difficult to keep the wound dry due to this drainage. She has an upcoming appointment with her onboarding specialist on 07/16/2021 for recheck. She currently is not taking any antibiotics and she has not undergone any wound cultures of this ulcer. She denies fever, chills, nausea, vomiting or other systemic signs of infection. There is moderate to heavy drainage from the ulcer and they have been using Mepilix with border and Aquacel Ag and Santyl for the last 2 weeks. 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 Progress of Wound: Zoey's ulcer is somewhat improved. She tolerated treatment with Santyl and wound vac with mild improvement. She still has some necrotic fibrous devitalized tissue at the base of the wound but it was fairly easily debrided. She has had improvement in vaginal discharge since decreasing the frequency of estradiol. Objective Data Objective Data Vital Signs: Vital Signs Temp Pulse Resp BP 97 F L 94 18 128/88 H 07/25/21 10:20 07/25/21 10:20 07/25/21 10:20 07/25/21 10:20 Weight: 180 kg Body Mass Index (BMI) 62.1 Lab / Micro Data Micro: Microbiology 07/04/21 11:15 Wound Abcess - Groin Gram Stain - Final 07/04/21 11:15 Wound Abcess - Groin Wound Culture - Final Escherichia coli Morganella morganii sp morgani Lactococcus garvieae 07/04/21 11:15 Wound Abcess - Groin Anaerobic Culture - Final Anaerobic cocci Prevotella disiens Physical Exam Const alert, oriented x3 and no apparent distress General Appearance: cooperative and comfortable Nutritional Appearance: obese HEENT normocephalic and head/scalp atraumatic Eyes PERRL Neck no lymphadenopathy Resp normal respiratory effort Effort and Inspection: able to speak in complete sentences Auscultation: clear to auscultation bilaterally Cardio regular rate and regular rhythm Speculum Exam - Vagina: vaginal discharge clear and king Skin Wounds: wounds noted Wound Narrative: as in clinical panel Neuro oriented x3 Psych thought process normal and denies suicidal ideation Debridement Note Debridement Note Post-Debridement Measurements and Additional Note: Post-Debridement Measurements/Treatment - Nurse 1 - General Ulcer Assessment Start: 07/04/21 10:03 Freq: Status: Active Protocol: LINK Activity Type Activity Date Activity User E-Sign Co-Sign Detail Recorded Client Recorded Date Recorded By Document 07/04/21 10:42 RB [id number] 07/04/21 10:48 RB Document 07/11/21 12:19 RB [id number] 07/11/21 12:23 RB Document 07/25/21 10:20 RB [id number] 07/25/21 10:41 RB 07/04/21 07/11/21 07/25/21 10:42 12:19 10:20 - Today's Visit Information Type of service Follow-up Visit Follow-up Visit Follow-up Visit (Physician/DRILL RIG OPERATOR HELPER (Physician/DRILL RIG OPERATOR HELPER (Physician/DRILL RIG OPERATOR HELPER ) ) ) Arrival Mode Wheelchair Wheelchair Wheelchair Transfer Assistance Manual None Manual Patient Identification Verified (Name & Yes Yes Yes ) Patient Requires Transmission-Based No No No Precautions Height and Weight Height 5 ft 7 in Weight 180 kg Weight in Pounds 396.8 lbs Body Mass Index (BMI) 62.1 62.1 62.1 BMI Classification Obese Obese Obese BSA - Miguel 2.71 Vital Signs Temperature (97.8 F-99.1 F) 97.8 F 97 F L 97 F L Temperature Source Temporal Temporal Temporal Pulse Rate (60-100) 89 94 94 Pulse Location Monitor Monitor Monitor Respiratory Rate (12-18) 18 18 18 Respiratory rate source Observation Observation Observation Blood Pressure (90/60-120/80) 149/82 H 120/76 128/88 H Blood Pressure Mean (mm Hg) 104 90 101 Source Monitor Monitor Monitor Position Semi-Fowlers Semi-Fowlers Semi-Fowlers Blood Pressure Location Left Arm Left Arm Left Arm History Since Last Visit- (Skip if this is Patient's initial visit) Have you changed medications since your No No No last visit? Any new allergies or adverse reactions No No No Had a fall/change in ADL's that may No No No increase risk of falls Signs or symptoms of abuse and/or No No No neglect since last visit Have you been in the hospital since your No No No last visit? Has dressing in place as prescribed Yes Yes Yes Has compression in place as prescribed No No No Has offloadiing in place as prescribed No No No Experienced any changes in pain level or No No No management Left Footwear Slipper Right Footwear Regular Shoe Pain Scale: 0-10 Numeric Is Patient Pain Free? Yes Yes Yes R labia -Description Aching -Intensity 8 -Duration (hours) Acute -Pain Behavior Withdrawal from Touch -Pain Aggravating Factors Sitting -Alleviating Factors/Interventions Medication -Effectiveness of Alleviating Factor/ Minimally Intervention effective WC - Nurse 1 - General Ulcer Measurement Start: 07/04/21 10:03 Freq: Status: Active Protocol: Activity Type Activity Date Activity User E-Sign Co-Sign Detail Recorded Client Recorded Date Recorded By Document 07/04/21 10:42 RB [id number] 07/04/21 10:48 RB Document 07/11/21 12:19 RB [id number] 07/11/21 12:23 RB Document 07/25/21 10:20 RB [id number] 07/25/21 10:41 RB 07/04/21 07/11/21 07/25/21 10:42 12:19 10:20 Wound Center Nurse 1 6. R posterior labia -Combined with other wound No No No -Current Size (cm) - Length 3 1.5 1.4 -Current Size (cm) - Width 2 4 1.9 -Current Size (cm) - Depth 0.9 1.8 2 -Total Square Cm 6 6.0 2.66 -Photo Taken Yes -Tunneling No No -Undermining/Tunneling No Yes Yes -Undermining/Tunneling Starts (O'clock 1 12 ) -Undermining/Tunneling Ends (O'clock) 2 2 -Maximum Distance (cm) 2.5 3 -Circular Undermining No No -Exudate Amt Medium Medium Large -Exudate Type Serosanguineous Serosanguineous Serosanguineous -Wound Margin Distinct, Thickened & Thickened & Outline Rolled Under Rolled Under Attached -Granulation Amt Medium (34-66%) Medium (34-66%) Large (67-100%) -Granulation Quality Bronson Bronson Bronson -Slough/Fibrin Yes Yes Yes -Necrosis Amt Small (1-33%) Small (1-33%) Small (1-33%) -Necrotic Tissue Type Adherent Slough Adherent Slough Adherent Slough -Structure Exposed N/A N/A Muscle -Texture (Janene-wound Skin Appearance) Assessed, Assessed, Assessed, Excoriation Excoriation Scarring -Moisture (Janene-wound Skin Appearance) Assessed Assessed Assessed -Color (Janene-wound Skin Appearance) Assessed, Assessed Assessed Erythema -Temperature (Janene-wound Skin No Abnormality No Abnormality Appearance) (Pt Warm) (Pt Warm) -Tenderness on Palpation (Janene-wound No No Skin Appearance) -Ulcer Cleansing Wound Cleanser Wound Cleanser Wound Cleanser -Foul Odor after Cleansing No No No -Anesthetic Used 4% Lidocaine 5% Lidocaine 4% Lidocaine Solution Gel Solution WC - Nurse 2 - General Ulcer CM Notes Start: 07/04/21 10:03 Freq: Status: Active Protocol: Activity Type Activity Date Activity User E-Sign Co-Sign Detail Recorded Client Recorded Date Recorded By Document 07/04/21 10:55 MW [id number] 07/04/21 11:29 MW Document 07/11/21 12:16 MW [id number] 07/11/21 12:23 MW Document 07/25/21 11:02 MW [id number] 07/25/21 11:28 MW 07/04/21 07/11/21 07/25/21 10:55 12:16 11:02 Wound Center Nurse 2 6. R posterior labia -Time 11:00 12:16 11:02 -Correct Patient Yes Yes Yes -Correct Side, Site, Position Yes Yes Yes -Correct Procedure Yes Yes Yes -Procedure Performed Yes Yes Yes -Type of Procedure Debridement Debridement Debridement -Clinical Debridement Subcutaneous Subcutaneous Subcutaneous -Tissue Removed Subcutaneous Subcutaneous Subcutaneous -Post Debridement (cm) - Length 4.5 3.4 1.5 -Post Debridement (cm) - Width 3.2 3.4 2.9 -Post Debridement (cm) - Depth 1.7 2.5 2.5 -Total Square (Post) (cm) 14.40 11.56 4.35 -Area of Debridement (cm) - Length 4.5 3.4 1.5 -Area of Debridement (cm) - Width 3.2 3.4 2.9 -Total Square (Area) (cm) 14.40 11.56 4.35 -Tunneling No No No -Undermining/Tunneling No Yes Yes -Undermining/Tunneling Starts (O'clock 10 11 ) -Undermining/Tunneling Ends (O'clock) 1 1 -Maximum Distance (cm) 2.5 2.8 -Circular Undermining No No No -Wound/Ulcer Outcome Not Healed Not Healed Not Healed -Ulcer Cleansing Rinsed/ Rinsed/ Rinsed/ Irrigated with Irrigated with Irrigated with Saline Saline Saline -Foul Odor after Cleansing No No No -Bioengineered Tissue No No No -Bleeding Controlled with Pressure Pressure Pressure -Offloading No No No -Treatment Response Procedure Procedure Procedure Tolerated Well Tolerated Well Tolerated Well -Debridement - Subq, 1st 20sq cm Yes Yes Yes Pain Scale: 0-10 Numeric Is Patient Pain Free? Yes Yes Yes WC - Nurse 3 - General Ulcer D/C NN Start: 07/04/21 10:03 Freq: Status: Active Protocol: Activity Type Activity Date Activity User E-Sign Co-Sign Detail Recorded Client Recorded Date Recorded By Document 07/04/21 12:18 RB [id number] 07/04/21 12:19 RB Document 07/11/21 14:14 RB [id number] 07/11/21 14:15 RB Document 07/25/21 12:00 RB [id number] 07/25/21 12:01 RB 07/04/21 07/11/21 07/25/21 12:18 14:14 12:00 Wound Care Nurse 3 6. R posterior labia -Ulcer Cleansing Wound Cleanser Wound Cleanser Wound Cleanser -Negative Pressure Wound Therapy Start Continue -Setting (mmHg) 150 150 -Negative Pressure is Continuous Continuous -Primary Dressing Applied Aquacel AG 4x4 -Other Dressing hydrogel, santyl bordered foam dressing -NPWT Application Charge ($) NPWT </= 50 sq NPWT </= 50 sq cm cm -Aquacel AG 4x4 2 Janene-Wound Care Barrier Barrier Treatment Response Procedure Procedure Procedure Tolerated Well Tolerated Well Tolerated Well Pain Scale: 0-10 Numeric Is Patient Pain Free? Yes Yes WC - Visit Discharge Discharge Condition Stable Stable Stable Ambulatory Status Wheelchair Wheelchair Wheelchair Transportation Private Auto Private Auto Private Auto Medication Reconcilliation completed & No No No provided to patient/care provider Clinical Summary of Care Provided Yes Yes Yes Notes: transfer pt to chair per two nurses Wound debrided: right posterior labia Laterality: Right Wound Grade/Stage: Stage III Type of Debridement: Excisional debridement Anesthesia Used: 4% Lidocaine Solution and 5% Lidocaine Gel Depth: Down to and including healthy tissue, in the subcutaneous layer and to muscle Percentage of wound debrided: 100 Instrument Used: #15 blade and Forceps Tissue Removed: Yellow slough, devitalized tissue Severity: Fat Layer Exposed Amount of bleeding with debridement: Mild Bleeding Controlled with: Compression and gauze Patient tolerated procedure: Patient tolerated procedure well Assessment/Plan Assessment/Plan (1) Multiple sclerosis: CODE(S): G35 - Multiple sclerosis (2) Psoriasis: CODE(S): L40.9 - Psoriasis, unspecified (3) Debility: CODE(S): R53.81 - Other malaise (4) Pressure ulcer of right buttock, stage 3: CODE(S): L89.313 - Pressure ulcer of right buttock, stage 3 PLAN: Zoey's ulcer was evaluated and debrided today at the wound healing center. Wound vac reapplied today. Will have Santyl applied to wound bed and then vac applied on next vac change. If vac loses seal and they are unable to get it to seal then will have her dress ulcer with Santyl to the wound bed, cover with Aquacel Ag and cover with moisture barrier dressing with cushion such as mepilix with border or optifoam with border with changes daily and as needed for soiling. Will have her decrease the frequency of use of the Estradiol vaginal tablet to a half tablet weekly. She will not see BANQUET CHEF until after wound vac treatment is completed. Wound culture results reviewed. She tolerated treatment with Augmentin. Will obtain recent labs. Encouraged increased protein intake to support nutrition and optimize healing. Encouraged offloading of her right buttock/labia as much as possible in order to heal the ulcer. She and her were advised to call with any concerns or increased drainage, erythema or odor. She will return in 1 week for wound care.
== END 2021-07-29 23:59 ==
LOC: WC 10:00
PROVIDERS: PCP Family Medicine; Visit Provider Family Medicine
DX: L89.313 Pressure ulcer of right buttock, stage 3 (principal); G35 Multiple sclerosis; Z74.01 Bed confinement status; Z99.3 Dependence on wheelchair; Z79.899 Other long term (current) drug therapy; L40.9 Psoriasis, unspecified; R21 Rash and other nonspecific skin eruption
CPT/HCPCS: 11042; 87070; 87075; 87077; 87186; 87205; 97605; 99213; G0463

== ENCOUNTER 2021-08-22 11:00 | Outpatient (RCR) | payer MEDICARE, SELFPAY ==
[2021-07-30 00:18] VITALS: BP 128/88; PULSE 94; RESP 18; TEMP 36.1; BMI 62.1
[2021-08-01 11:26] VITALS: BP 125/74; PULSE 62; TEMP 36.4; BMI 62.1
--- NOTE | 2021-08-01 11:39 | PN.PCM_ITS ---
History of Present Illness Date of Service: 08/01/21 Chief Complaint: Right posterior labial pressure sore, Stage III History of Wound: Zoey is a 66 yo female that is bed bound/wheelchair bound from complications of MS that presents to the wound healing center today for evaluation and treatment of a pressure ulcer of her right posterior labia that has been present since January 2021. She had been doing well but had a pressure ulcer of her right posterior labia develop in January 2021 after an abrasion from transferring after a shower. Her began applying Santyl and Aquacel Ag for several weeks and then Aquacel Ag alone for moderate drainage to the wound at that time and it was nearly healed until several weeks ago she was at a bridal shower and was out of bed for a longer period of time and the following day there was significant bruising to the area and it began to become larger and drain more. For the last 2 weeks he had returned to applying Santyl and Aquacel Extra to the wound but was not noticing significant improvement and called to be seen at the wound healing center. Her helps with her care and he reports that she has significant vaginal drainage for the last several months since she has been being treated with Estradiol for vaginal itching. She uses a tablet vaginally 3 times/week and her notes that there is copious clear-king vaginal discharge. She has a suprapubic catheter in place so it is not likely that it is urine that is leaking. He finds it very difficult to keep the wound dry due to this drainage. She has an upcoming appointment with her heading and priming operator on 07/16/2021 for recheck. She currently is not taking any antibiotics and she has not undergone any wound cultures of this ulcer. She denies fever, chills, nausea, vomiting or other systemic signs of infection. There is moderate to heavy drainage from the ulcer and they have been using Mepilix with border and Aquacel Ag and Santyl for the last 2 weeks. 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 Progress of Wound: Zoey's ulcer is somewhat improved. She tolerated treatment with Santyl and wound vac with improvement. She no longer has necrotic tissue or slough at the base of the wound. Drainage is still heavy at times. Was heavier after debridement last week but decreased over the course of the week. She has had improvement in vaginal discharge since decreasing the frequency of estradiol. Objective Data Objective Data Vital Signs: Vital Signs Temp Pulse Resp BP 97.6 F L 62 18 125/74 H 08/01/21 11:26 08/01/21 11:26 07/30/21 00:18 08/01/21 11:26 Weight: 180 kg Body Mass Index (BMI) 62.1 Physical Exam Const alert, oriented x3 and no apparent distress HEENT normocephalic and head/scalp atraumatic Mouth: oral and palatal mucosa normal Resp normal respiratory effort Effort and Inspection: able to speak in complete sentences Auscultation: clear to auscultation bilaterally Cardio regular rate and regular rhythm Skin Wounds: wounds noted Wound Narrative: as in clinical panel Psych mental status grossly normal, thought process normal, cooperative and affect normal Debridement Note Debridement Note Wound debrided: right posterior labia Laterality: Right Wound Grade/Stage: Stage III Type of Debridement: Excisional debridement Anesthesia Used: 5% Lidocaine Gel Depth: Down to and including healthy tissue, in the subcutaneous layer and to muscle Percentage of wound debrided: 100 Instrument Used: 5mm curette Tissue Removed: Yellow slough, devitalized tissue Severity: Fat Layer Exposed Amount of bleeding with debridement: Mild Bleeding Controlled with: Compression and gauze Patient tolerated procedure: Patient tolerated procedure well Post-Debridement Measurements and Additional Note: Post-Debridement Measurements/Treatment - Nurse 1 - General Ulcer Assessment Start: 08/01/21 11:19 Freq: Status: Active Protocol: LINK Activity Type Activity Date Activity User E-Sign Co-Sign Detail Recorded Client Recorded Date Recorded By Document 08/01/21 11:26 RAJESH [id number] 08/01/21 11:30 RAJESH 08/01/21 11:26 - Today's Visit Information Type of service Follow-up Visit (Physician/WHITING CAN WORKER ) Arrival Mode Wheelchair Transfer Assistance Other Transfer Assist (Other) Patient Identification Verified (Name & Yes ) Patient Requires Transmission-Based No Precautions Safety Precautions NA Height and Weight Body Mass Index (BMI) 62.1 BMI Classification Obese Vital Signs Temperature (97.8 F-99.1 F) 97.6 F L Temperature Source Temporal Pulse Rate (60-100) 62 Pulse Location Monitor Blood Pressure (90/60-120/80) 125/74 H Blood Pressure Mean (mm Hg) 91 Source Monitor History Since Last Visit- (Skip if this is Patient's initial visit) Have you changed medications since your No last visit? Any new allergies or adverse reactions No Had a fall/change in ADL's that may No increase risk of falls Signs or symptoms of abuse and/or No neglect since last visit Have you been in the hospital since your No last visit? Has dressing in place as prescribed Yes Has compression in place as prescribed N/A Has offloadiing in place as prescribed Yes Experienced any changes in pain level or No management Left Footwear Slipper Right Footwear Slipper WC - Nurse 1 - General Ulcer Measurement Start: 08/01/21 11:19 Freq: Status: Active Protocol: Activity Type Activity Date Activity User E-Sign Co-Sign Detail Recorded Client Recorded Date Recorded By Document 08/01/21 11:26 RAJESH [id number] 08/01/21 11:30 RAJESH 08/01/21 11:26 Wound Center Nurse 1 6. R posterior labia -Current Size (cm) - Length 1.5 -Current Size (cm) - Width 2.5 -Current Size (cm) - Depth 0.3 -Total Square Cm 3.75 -Photo Taken No -Tunneling No -Undermining/Tunneling Yes -Undermining/Tunneling Starts (O'clock 11 ) -Undermining/Tunneling Ends (O'clock) 1 -Maximum Distance (cm) 3.8 -Circular Undermining No -Change in Wound Grade/Stage No -Exudate Amt Large -Exudate Type Serosanguineous -Wound Margin Distinct, Outline Attached -Granulation Amt None Present (0 %) -Slough/Fibrin No -Necrosis Amt Large (67-100%) -Necrotic Tissue Type Adherent Slough -Structure Exposed N/A -Texture (Janene-wound Skin Appearance) No Abnormality, Assessed -Moisture (Janene-wound Skin Appearance) No Abnormality, Assessed -Color (Janene-wound Skin Appearance) No Abnormality, Assessed -Temperature (Janene-wound Skin No Abnormality Appearance) (Pt Warm) -Tenderness on Palpation (Janene-wound No Skin Appearance) -Ulcer Cleansing Rinsed/ Irrigated with Saline -Foul Odor after Cleansing No -Anesthetic Used 5% Lidocaine Gel WC - Nurse 2 - General Ulcer CM Notes Start: 08/01/21 11:19 Freq: Status: Active Protocol: Activity Type Activity Date Activity User E-Sign Co-Sign Detail Recorded Client Recorded Date Recorded By Document 08/01/21 11:20 MW [id number] 08/01/21 11:25 MW 08/01/21 11:20 Wound Center Nurse 2 -Time 11:20 -Correct Patient Yes -Correct Side, Site, Position Yes -Correct Procedure Yes -Procedure Performed Yes -Type of Procedure Debridement -Clinical Debridement Subcutaneous -Tissue Removed Subcutaneous -Post Debridement (cm) - Length 2.2 -Post Debridement (cm) - Width 1.5 -Post Debridement (cm) - Depth 2.8 -Total Square (Post) (cm) 3.30 -Area of Debridement (cm) - Length 2.2 -Area of Debridement (cm) - Width 1.5 -Total Square (Area) (cm) 3.30 -Tunneling No -Undermining/Tunneling No -Circular Undermining No -Wound/Ulcer Outcome Not Healed -Ulcer Cleansing Rinsed/ Irrigated with Saline -Foul Odor after Cleansing No -Bioengineered Tissue No -Bleeding Controlled with Pressure -Offloading No -Treatment Response Procedure Tolerated Well -Debridement - Subq, 1st 20sq cm Yes Pain Scale: 0-10 Numeric Is Patient Pain Free? Yes Assessment/Plan Assessment/Plan (1) Pressure ulcer of right buttock, stage 3: CODE(S): L89.313 - Pressure ulcer of right buttock, stage 3 (2) Multiple sclerosis: CODE(S): G35 - Multiple sclerosis (3) Debility: CODE(S): R53.81 - Other malaise (4) Bilateral lower extremity edema: CODE(S): R60.0 - Localized edema (5) Psoriasis: CODE(S): L40.9 - Psoriasis, unspecified PLAN: Zoey's ulcer was evaluated and debrided today at the wound healing center. Wound vac reapplied today for heavy drainage and large defect of tissue with undermining. Will have them change this Wednesday and see her again on Wednesday. Will hold Santyl. If vac loses seal and they are unable to get it to seal then will have her dress ulcer with Santyl to the wound bed, cover with Aquacel Ag and cover with moisture barrier dressing with cushion such as mepilix with border or optifoam with border with changes daily and as needed for soiling. Will have her decrease the frequency of use of the Estradiol vaginal tablet to a half tablet weekly. She will not see ENTRY LEVEL SOFTWARE DEVELOPER until after wound vac treatment is completed. Will obtain recent labs. Encouraged increased protein intake to support nutrition and optimize healing. Encouraged offloading of her right buttock/labia as much as possible in order to heal the ulcer. She and her were advised to call with any concerns or increased drainage, erythema or odor. She will return in 1 week for wound care.
[2021-08-08 11:19] VITALS: BP 133/87; PULSE 87; RESP 18; TEMP 35.8; BMI 62.1
--- NOTE | 2021-08-08 12:45 | PCM.WC.PN ---
History of Present Illness Date of Service: 08/08/21 Chief Complaint: Right posterior labial pressure sore, Stage III History of Wound: Zoey is a 66 yo female that is bed bound/wheelchair bound from complications of MS that presents to the wound healing center today for evaluation and treatment of a pressure ulcer of her right posterior labia that has been present since January 2021. She had been doing well but had a pressure ulcer of her right posterior labia develop in January 2021 after an abrasion from transferring after a shower. Her began applying Santyl and Aquacel Ag for several weeks and then Aquacel Ag alone for moderate drainage to the wound at that time and it was nearly healed until several weeks ago she was at a bridal shower and was out of bed for a longer period of time and the following day there was significant bruising to the area and it began to become larger and drain more. For the last 2 weeks he had returned to applying Santyl and Aquacel Extra to the wound but was not noticing significant improvement and called to be seen at the wound healing center. Her helps with her care and he reports that she has significant vaginal drainage for the last several months since she has been being treated with Estradiol for vaginal itching. She uses a tablet vaginally 3 times/week and her notes that there is copious clear-king vaginal discharge. She has a suprapubic catheter in place so it is not likely that it is urine that is leaking. He finds it very difficult to keep the wound dry due to this drainage. She has an upcoming appointment with her front office coordinator on 07/16/2021 for recheck. She currently is not taking any antibiotics and she has not undergone any wound cultures of this ulcer. She denies fever, chills, nausea, vomiting or other systemic signs of infection. There is moderate to heavy drainage from the ulcer and they have been using Mepilix with border and Aquacel Ag and Santyl for the last 2 weeks. 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 Progress of Wound: Zoey's ulcer is somewhat improved. She tolerated treatment with wound vac with minimal improvement. She no longer has necrotic tissue or slough at the base of the wound. Drainage is still heavy at times. Was heavier after debridement last week but decreased over the course of the week. She has had improvement in vaginal discharge since decreasing the frequency of estradiol. Objective Data Objective Data Vital Signs: Vital Signs Temp Pulse Resp BP 96.4 F L 87 18 133/87 H 08/08/21 11:19 08/08/21 11:19 08/08/21 11:19 08/08/21 11:19 Weight: 180 kg Body Mass Index (BMI) 62.1 Physical Exam Const alert, oriented x3 and no apparent distress HEENT normocephalic and head/scalp atraumatic Resp normal respiratory effort Effort and Inspection: able to speak in complete sentences Auscultation: clear to auscultation bilaterally Cardio regular rate and regular rhythm Skin Wounds: wounds noted Wound Narrative: as in clinical panel Psych mental status grossly normal, thought process normal, cooperative and affect normal Debridement Note Debridement Note Wound debrided: right posterior labia Laterality: Right Wound Grade/Stage: Stage III Type of Debridement: Excisional debridement Anesthesia Used: 4% Lidocaine Solution and 5% Lidocaine Gel Depth: Down to and including healthy tissue and in the subcutaneous layer Percentage of wound debrided: 100 Instrument Used: 3mm curette Tissue Removed: Yellow slough, devitalized tissue Severity: Fat Layer Exposed Amount of bleeding with debridement: Mild Bleeding Controlled with: Compression and gauze Patient tolerated procedure: Patient tolerated procedure well Post-Debridement Measurements and Additional Note: Post-Debridement Measurements/Treatment - Nurse 1 - General Ulcer Assessment Start: 08/01/21 11:19 Freq: Status: Active Protocol: LINK Activity Type Activity Date Activity User E-Sign Co-Sign Detail Recorded Client Recorded Date Recorded By Document 08/01/21 11:26 AK [id number] 08/01/21 11:30 AK Document 08/08/21 11:19 RB [id number] 08/08/21 11:21 RB 08/01/21 08/08/21 11:26 11:19 - Today's Visit Information Type of service Follow-up Visit Follow-up Visit (Physician/VAT CLEANER (Physician/VAT CLEANER ) ) Arrival Mode Wheelchair Wheelchair Transfer Assistance Other None Transfer Assist (Other) Patient Identification Verified (Name & Yes Yes ) Patient Requires Transmission-Based No No Precautions Safety Precautions NA Height and Weight Body Mass Index (BMI) 62.1 62.1 BMI Classification Obese Obese Vital Signs Temperature (97.8 F-99.1 F) 97.6 F L 96.4 F L Temperature Source Temporal Temporal Pulse Rate (60-100) 62 87 Pulse Location Monitor Monitor Respiratory Rate (12-18) 18 Respiratory rate source Observation Blood Pressure (90/60-120/80) 125/74 H 133/87 H Blood Pressure Mean (mm Hg) 91 102 Source Monitor Monitor Position Semi-Fowlers Blood Pressure Location Left Arm History Since Last Visit- (Skip if this is Patient's initial visit) Have you changed medications since your No No last visit? Any new allergies or adverse reactions No No Had a fall/change in ADL's that may No No increase risk of falls Signs or symptoms of abuse and/or No No neglect since last visit Have you been in the hospital since your No No last visit? Has dressing in place as prescribed Yes Yes Has compression in place as prescribed N/A No Has offloadiing in place as prescribed Yes No Experienced any changes in pain level or No No management Left Footwear Slipper Right Footwear Slipper Pain Scale: 0-10 Numeric Is Patient Pain Free? Yes WC - Nurse 1 - General Ulcer Measurement Start: 08/01/21 11:19 Freq: Status: Active Protocol: Activity Type Activity Date Activity User E-Sign Co-Sign Detail Recorded Client Recorded Date Recorded By Document 08/01/21 11:26 AK [id number] 08/01/21 11:30 AK Document 08/08/21 11:19 RB [id number] 08/08/21 11:21 RB 08/01/21 08/08/21 11:26 11:19 Wound Center Nurse 1 6. R posterior labia -Combined with other wound No -Current Size (cm) - Length 1.5 1.1 -Current Size (cm) - Width 2.5 1.7 -Current Size (cm) - Depth 0.3 -Total Square Cm 3.75 1.87 -Photo Taken No No -Tunneling No No -Undermining/Tunneling Yes No -Undermining/Tunneling Starts (O'clock 11 ) -Undermining/Tunneling Ends (O'clock) 1 -Maximum Distance (cm) 3.8 -Circular Undermining No No -Change in Wound Grade/Stage No -Exudate Amt Large Large -Exudate Type Serosanguineous Serosanguineous -Wound Margin Distinct, Thickened & Outline Rolled Under Attached -Granulation Amt None Present (0 Medium (34-66%) %) -Granulation Quality [place] -Slough/Fibrin No Yes -Necrosis Amt Large (67-100%) Small (1-33%) -Necrotic Tissue Type Adherent Slough Adherent Slough -Structure Exposed N/A N/A -Texture (Janene-wound Skin Appearance) No Abnormality, Assessed, Assessed Scarring -Moisture (Janene-wound Skin Appearance) No Abnormality, Assessed Assessed -Color (Janene-wound Skin Appearance) No Abnormality, Assessed Assessed -Temperature (Janene-wound Skin No Abnormality No Abnormality Appearance) (Pt Warm) (Pt Warm) -Tenderness on Palpation (Janene-wound No No Skin Appearance) -Ulcer Cleansing Rinsed/ Wound Cleanser Irrigated with Saline -Foul Odor after Cleansing No No -Anesthetic Used 5% Lidocaine 5% Lidocaine Gel Gel WC - Nurse 2 - General Ulcer CM Notes Start: 08/01/21 11:19 Freq: Status: Active Protocol: Activity Type Activity Date Activity User E-Sign Co-Sign Detail Recorded Client Recorded Date Recorded By Document 08/01/21 11:20 MW [id number] 08/01/21 11:25 MW Document 08/08/21 11:31 MW [id number] 08/08/21 11:39 MW 08/01/21 08/08/21 11:20 11:31 Wound Center Nurse 2 6. R posterior labia -Time 11:20 11:31 -Correct Patient Yes Yes -Correct Side, Site, Position Yes Yes -Correct Procedure Yes Yes -Procedure Performed Yes Yes -Type of Procedure Debridement Debridement -Clinical Debridement Subcutaneous Subcutaneous -Tissue Removed Subcutaneous Subcutaneous -Post Debridement (cm) - Length 2.2 1.7 -Post Debridement (cm) - Width 1.5 1.8 -Post Debridement (cm) - Depth 2.8 2.8 -Total Square (Post) (cm) 3.30 3.06 -Area of Debridement (cm) - Length 2.2 1.7 -Area of Debridement (cm) - Width 1.5 1.8 -Total Square (Area) (cm) 3.30 3.06 -Tunneling No No -Undermining/Tunneling No Yes -Undermining/Tunneling Starts (O'clock 12 ) -Undermining/Tunneling Ends (O'clock) 1 -Maximum Distance (cm) 5.4 -Circular Undermining No No -Wound/Ulcer Outcome Not Healed Not Healed -Ulcer Cleansing Rinsed/ Rinsed/ Irrigated with Irrigated with Saline Saline -Foul Odor after Cleansing No No -Bioengineered Tissue No No -Bleeding Controlled with Pressure Pressure -Offloading No No -Treatment Response Procedure Procedure Tolerated Well Tolerated Well -Debridement - Subq, 1st 20sq cm Yes Yes Pain Scale: 0-10 Numeric Is Patient Pain Free? Yes Yes - Nurse 3 - General Ulcer D/C NN Start: 08/01/21 11:19 Freq: Status: Active Protocol: Activity Type Activity Date Activity User E-Sign Co-Sign Detail Recorded Client Recorded Date Recorded By Document 08/01/21 11:51 DL [id number] 08/01/21 12:00 DL Document 08/08/21 11:41 RB [id number] 08/08/21 11:41 RB 08/01/21 08/08/21 11:51 11:41 Wound Care Nurse 3 6. R posterior labia -Ulcer Cleansing Rinsed/ Wound Cleanser Irrigated with Saline -Foul Odor after Cleansing No -Negative Pressure Wound Therapy Continue Continue -Setting (mmHg) 150 150 -Negative Pressure is Continuous Continuous -NPWT Application Charge ($) NPWT </= 50 sq NPWT </= 50 sq cm cm Treatment Response Procedure Procedure Tolerated Well Tolerated Well Pain Scale: 0-10 Numeric Is Patient Pain Free? Yes Yes - Visit Discharge Discharge Condition Stable Stable Ambulatory Status Wheelchair Wheelchair Transportation Private Auto Private Auto Medication Reconcilliation completed & No provided to patient/care provider Clinical Summary of Care Provided Yes Assessment/Plan Assessment/Plan (1) Pressure ulcer of right buttock, stage 3: CODE(S): L89.313 - Pressure ulcer of right buttock, stage 3 (2) Multiple sclerosis: CODE(S): G35 - Multiple sclerosis (3) Debility: CODE(S): R53.81 - Other malaise (4) Bilateral lower extremity edema: CODE(S): R60.0 - Localized edema (5) Psoriasis: CODE(S): L40.9 - Psoriasis, unspecified PLAN: Ezek[place] ulcer was evaluated and debrided today at the wound healing center. Wound vac reapplied today for heavy drainage and large defect of tissue with undermining. Will have them change this Wednesday and Wednesday and see her again on Wednesday. If vac loses seal and they are unable to get it to seal then will have her dress ulcer with Santyl to the wound bed, cover with Aquacel Ag and cover with moisture barrier dressing with cushion such as mepilix with border or optifoam with border with changes daily and as needed for soiling. Will have her decrease the frequency of use of the Estradiol vaginal tablet to a half tablet weekly. She will not see CORPORATE DEVELOPMENT ANALYST until after wound vac treatment is completed. Will obtain recent labs. Encouraged increased protein intake to support nutrition and optimize healing. Encouraged offloading of her right buttock/labia as much as possible in order to heal the ulcer. She and her were advised to call with any concerns or increased drainage, erythema or odor. She will return in 1 week for wound care.
[2021-08-15 10:03] VITALS: BP 138/68; PULSE 64; RESP 18; TEMP 36.6; BMI 62.1
--- NOTE | 2021-08-15 11:19 | PN.PCM_ITS ---
History of Present Illness Date of Service: 08/15/21 Chief Complaint: Right posterior labial pressure sore, Stage III History of Wound: Zoey is a 66 yo female that is bed bound/wheelchair bound from complications of MS that presents to the wound healing center today for evaluation and treatment of a pressure ulcer of her right posterior labia that has been present since January 2021. She had been doing well but had a pressure ulcer of her right posterior labia develop in January 2021 after an abrasion from transferring after a shower. Her began applying Santyl and Aquacel Ag for several weeks and then Aquacel Ag alone for moderate drainage to the wound at that time and it was nearly healed until several weeks ago she was at a bridal shower and was out of bed for a longer period of time and the following day there was significant bruising to the area and it began to become larger and drain more. For the last 2 weeks he had returned to applying Santyl and Aquacel Extra to the wound but was not noticing significant improvement and called to be seen at the wound healing center. Her helps with her care and he reports that she has significant vaginal drainage for the last several months since she has been being treated with Estradiol for vaginal itching. She uses a tablet vaginally 3 times/week and her notes that there is copious clear-king vaginal discharge. She has a suprapubic catheter in place so it is not likely that it is urine that is leaking. He finds it very difficult to keep the wound dry due to this drainage. She has an upcoming appointment with her foundry equipment mechanic on 07/16/2021 for recheck. She currently is not taking any antibiotics and she has not undergone any wound cultures of this ulcer. She denies fever, chills, nausea, vomiting or other systemic signs of infection. There is moderate to heavy drainage from the ulcer and they have been using Mepilix with border and Aquacel Ag and Santyl for the last 2 weeks. 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 Progress of Wound: Zoey's ulcer is somewhat improved. She tolerated treatment with wound vac with some improvement. She no longer has necrotic tissue or slough at the base of the wound. Drainage is still heavy at times. Was heavier after debridement last week but decreased over the course of the week. She has had improvement in vaginal discharge since discontinuing the use of estradiol. Objective Data Objective Data Vital Signs: Vital Signs Temp Pulse Resp BP 97.8 F 64 18 138/68 H 08/15/21 10:03 08/15/21 10:03 08/15/21 10:03 08/15/21 10:03 Weight: 180 kg Body Mass Index (BMI) 62.1 Physical Exam Const alert, oriented x3 and no apparent distress HEENT normocephalic and head/scalp atraumatic Resp normal respiratory effort Effort and Inspection: able to speak in complete sentences Auscultation: clear to auscultation bilaterally Cardio regular rate and regular rhythm Skin Wounds: wounds noted Wound Narrative: as in clinical panel Psych mental status grossly normal, thought process normal, cooperative and affect normal Debridement Note Debridement Note Wound debrided: right posterior labia Laterality: Right Wound Grade/Stage: Stage III Type of Debridement: Excisional debridement Anesthesia Used: 4% Lidocaine Solution Depth: Down to and including healthy tissue, in the subcutaneous layer and to muscle Percentage of wound debrided: 100 Instrument Used: 3mm curette Tissue Removed: Yellow slough, devitalized tissue Severity: Fat Layer Exposed Amount of bleeding with debridement: Mild Bleeding Controlled with: Compression and gauze Patient tolerated procedure: Patient tolerated procedure well Post-Debridement Measurements and Additional Note: Post-Debridement Measurements/Treatment LOUISE - Nurse 1 - General Ulcer Assessment Start: 08/01/21 11:19 Freq: Status: Active Protocol: LINK Activity Type Activity Date Activity User E-Sign Co-Sign Detail Recorded Client Recorded Date Recorded By Document 08/01/21 11:26 AK [id number] 08/01/21 11:30 AK Document 08/08/21 11:19 RB [id number] 08/08/21 11:21 RB Document 08/15/21 10:03 DL [id number] 08/15/21 10:04 DL 08/01/21 08/08/21 08/15/21 11:26 11:19 10:03 LOUISE - Today's Visit Information Type of service Follow-up Visit Follow-up Visit Follow-up Visit (Physician/DIRECTOR FUNDS DEVELOPMENT (Physician/DIRECTOR FUNDS DEVELOPMENT (Physician/DIRECTOR FUNDS DEVELOPMENT ) ) ) Arrival Mode Wheelchair Wheelchair Wheelchair Transfer Assistance Other None Doug Lift Transfer Assist (Other) Patient Identification Verified (Name & Yes Yes ) Patient Requires Transmission-Based No No No Precautions Safety Precautions NA Height and Weight Body Mass Index (BMI) 62.1 62.1 62.1 BMI Classification Obese Obese Obese Vital Signs Temperature (97.8 F-99.1 F) 97.6 F L 96.4 F L 97.8 F Temperature Source Temporal Temporal Temporal Pulse Rate (60-100) 62 87 64 Pulse Location Monitor Monitor Monitor Respiratory Rate (12-18) 18 18 Respiratory rate source Observation Observation Blood Pressure (90/60-120/80) 125/74 H 133/87 H 138/68 H Blood Pressure Mean (mm Hg) 91 102 91 Source Monitor Monitor Monitor Position Semi-Fowlers Semi-Fowlers Blood Pressure Location Left Arm Left Arm History Since Last Visit- (Skip if this is Patient's initial visit) Have you changed medications since your No No No last visit? Any new allergies or adverse reactions No No No Had a fall/change in ADL's that may No No No increase risk of falls Signs or symptoms of abuse and/or No No No neglect since last visit Have you been in the hospital since your No No No last visit? Has dressing in place as prescribed Yes Yes Yes Has compression in place as prescribed N/A No No Has offloadiing in place as prescribed Yes No No Experienced any changes in pain level or No No No management Left Footwear Slipper Right Footwear Slipper Pain Scale: 0-10 Numeric Is Patient Pain Free? Yes Yes WC - Nurse 1 - General Ulcer Measurement Start: 08/01/21 11:19 Freq: Status: Active Protocol: Activity Type Activity Date Activity User E-Sign Co-Sign Detail Recorded Client Recorded Date Recorded By Document 08/01/21 11:26 AK [id number] 08/01/21 11:30 AK Document 08/08/21 11:19 RB [id number] 08/08/21 11:21 RB Document 08/15/21 10:03 DL [id number] 08/15/21 10:04 DL 08/01/21 08/08/21 08/15/21 11:26 11:19 10:03 Wound Center Nurse 1 6. R posterior labia -Combined with other wound No No -Current Size (cm) - Length 1.5 1.1 1.8 -Current Size (cm) - Width 2.5 1.7 1.5 -Current Size (cm) - Depth 0.3 3.3 -Total Square Cm 3.75 1.87 2.70 -Photo Taken No No -Tunneling No No No -Undermining/Tunneling Yes No Yes -Undermining/Tunneling Starts (O'clock 11 7 ) -Undermining/Tunneling Ends (O'clock) 1 1 -Maximum Distance (cm) 3.8 4 -Circular Undermining No No No -Change in Wound Grade/Stage No -Exudate Amt Large Large Large -Exudate Type Serosanguineous Serosanguineous Serosanguineous -Wound Margin Distinct, Thickened & Thickened & Outline Rolled Under Rolled Under Attached -Granulation Amt None Present (0 Medium (34-66%) Medium (34-66%) %) -Granulation Quality [place] -Slough/Fibrin No Yes Yes -Necrosis Amt Large (67-100%) Small (1-33%) Small (1-33%) -Necrotic Tissue Type Adherent Slough Adherent Slough Adherent Slough -Structure Exposed N/A N/A N/A -Texture (Janene-wound Skin Appearance) No Abnormality, Assessed, Scarring Assessed Scarring -Moisture (Janene-wound Skin Appearance) No Abnormality, Assessed Assessed Assessed -Color (Janene-wound Skin Appearance) No Abnormality, Assessed Assessed Assessed -Temperature (Janene-wound Skin No Abnormality No Abnormality No Abnormality Appearance) (Pt Warm) (Pt Warm) (Pt Warm) -Tenderness on Palpation (Janene-wound No No No Skin Appearance) -Ulcer Cleansing Rinsed/ Wound Cleanser Wound Cleanser Irrigated with Saline -Foul Odor after Cleansing No No No -Anesthetic Used 5% Lidocaine 5% Lidocaine 4% Lidocaine Gel Gel Solution WC - Nurse 2 - General Ulcer CM Notes Start: 08/01/21 11:19 Freq: Status: Active Protocol: Activity Type Activity Date Activity User E-Sign Co-Sign Detail Recorded Client Recorded Date Recorded By Document 08/01/21 11:20 MW [id number] 08/01/21 11:25 MW Document 08/08/21 11:31 MW [id number] 08/08/21 11:39 MW Document 08/15/21 10:28 MW [id number] 08/15/21 10:37 MW 08/01/21 08/08/21 08/15/21 11:20 11:31 10:28 Wound Center Nurse 2 6. R posterior labia -Time 11:20 11:31 10:29 -Correct Patient Yes Yes Yes -Correct Side, Site, Position Yes Yes Yes -Correct Procedure Yes Yes Yes -Procedure Performed Yes Yes Yes -Type of Procedure Debridement Debridement Debridement -Clinical Debridement Subcutaneous Subcutaneous Subcutaneous -Tissue Removed Subcutaneous Subcutaneous Subcutaneous -Post Debridement (cm) - Length 2.2 1.7 2.3 -Post Debridement (cm) - Width 1.5 1.8 1.8 -Post Debridement (cm) - Depth 2.8 2.8 3.6 -Total Square (Post) (cm) 3.30 3.06 4.14 -Area of Debridement (cm) - Length 2.2 1.7 2.3 -Area of Debridement (cm) - Width 1.5 1.8 1.8 -Total Square (Area) (cm) 3.30 3.06 4.14 -Tunneling No No No -Undermining/Tunneling No Yes Yes -Undermining/Tunneling Starts (O'clock 12 12 ) -Undermining/Tunneling Ends (O'clock) 1 1 -Maximum Distance (cm) 5.4 7.4 -Circular Undermining No No No -Wound/Ulcer Outcome Not Healed Not Healed Not Healed -Ulcer Cleansing Rinsed/ Rinsed/ Rinsed/ Irrigated with Irrigated with Irrigated with Saline Saline Saline -Foul Odor after Cleansing No No No -Bioengineered Tissue No No No -Bleeding Controlled with Pressure Pressure Pressure -Offloading No No No -Treatment Response Procedure Procedure Procedure Tolerated Well Tolerated Well Tolerated Well -Debridement - Subq, 1st 20sq cm Yes Yes Yes Pain Scale: 0-10 Numeric Is Patient Pain Free? Yes Yes Yes WC - Nurse 3 - General Ulcer D/C NN Start: 08/01/21 11:19 Freq: Status: Active Protocol: Activity Type Activity Date Activity User E-Sign Co-Sign Detail Recorded Client Recorded Date Recorded By Document 08/01/21 11:51 DL [id number] 08/01/21 12:00 DL Document 08/08/21 11:41 RB [id number] 08/08/21 11:41 RB Document 08/15/21 10:59 DL [id number] 08/15/21 11:00 DL 08/01/21 08/08/21 08/15/21 11:51 11:41 10:59 Wound Care Nurse 3 6. R posterior labia -Ulcer Cleansing Rinsed/ Wound Cleanser Rinsed/ Irrigated with Irrigated with Saline Saline -Foul Odor after Cleansing No No -Negative Pressure Wound Therapy Continue Continue Continue -Setting (mmHg) 150 150 150 -Negative Pressure is Continuous Continuous Continuous -NPWT Application Charge ($) NPWT </= 50 sq NPWT </= 50 sq NPWT </= 50 sq cm cm cm Treatment Response Procedure Procedure Procedure Tolerated Well Tolerated Well Tolerated Well Pain Scale: 0-10 Numeric Is Patient Pain Free? Yes Yes Yes WC - Visit Discharge Discharge Condition Stable Stable Stable Ambulatory Status Wheelchair Wheelchair Wheelchair Transportation Private Auto Private Auto Private Auto Medication Reconcilliation completed & No provided to patient/care provider Clinical Summary of Care Provided Yes Facility Type Home Health Orders Sent Yes Assessment/Plan Assessment/Plan (1) Pressure ulcer of right buttock, stage 3: CODE(S): L89.313 - Pressure ulcer of right buttock, stage 3 (2) Multiple sclerosis: CODE(S): G35 - Multiple sclerosis (3) Debility: CODE(S): R53.81 - Other malaise (4) Bilateral lower extremity edema: CODE(S): R60.0 - Localized edema (5) Psoriasis: CODE(S): L40.9 - Psoriasis, unspecified PLAN: Zoey's ulcer was evaluated and debrided today at the wound healing center. Wound vac reapplied today for heavy drainage and large defect of tissue with undermining. Will have them change this Wednesday and Wednesday and see her again on Wednesday. If vac loses seal and they are unable to get it to seal then will have her dress ulcer with Santyl to the wound bed, cover with Aquacel Ag and cover with moisture barrier dressing with cushion such as mepilix with border or optifoam with border with changes daily and as needed for soiling. Will obtain recent labs. Encouraged increased protein intake to support nutrition and optimize healing. Encouraged offloading of her right buttock/labia as much as possible in order to heal the ulcer. She and her were advised to call with any concerns or increased drainage, erythema or odor. She will return in 1 week for wound care.
[2021-08-22 11:06] VITALS: BP 121/73; PULSE 89; RESP 20; TEMP 36.1; BMI 62.1
--- NOTE | 2021-08-22 15:02 | PCM.WC.PN ---
History of Present Illness Date of Service: 08/22/21 Chief Complaint: Right posterior labial pressure sore, Stage III History of Wound: Zoey is a 66 yo female that is bed bound/wheelchair bound from complications of MS that presents to the wound healing center today for evaluation and treatment of a pressure ulcer of her right posterior labia that has been present since January 2021. She had been doing well but had a pressure ulcer of her right posterior labia develop in January 2021 after an abrasion from transferring after a shower. Her began applying Santyl and Aquacel Ag for several weeks and then Aquacel Ag alone for moderate drainage to the wound at that time and it was nearly healed until several weeks ago she was at a bridal shower and was out of bed for a longer period of time and the following day there was significant bruising to the area and it began to become larger and drain more. For the last 2 weeks he had returned to applying Santyl and Aquacel Extra to the wound but was not noticing significant improvement and called to be seen at the wound healing center. Her helps with her care and he reports that she has significant vaginal drainage for the last several months since she has been being treated with Estradiol for vaginal itching. She uses a tablet vaginally 3 times/week and her notes that there is copious clear-king vaginal discharge. She has a suprapubic catheter in place so it is not likely that it is urine that is leaking. He finds it very difficult to keep the wound dry due to this drainage. She has an upcoming appointment with her database analyst on 07/16/2021 for recheck. She currently is not taking any antibiotics and she has not undergone any wound cultures of this ulcer. She denies fever, chills, nausea, vomiting or other systemic signs of infection. There is moderate to heavy drainage from the ulcer and they have been using Mepilix with border and Aquacel Ag and Santyl for the last 2 weeks. 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 Progress of Wound: Zoey's ulcer is not significantly improved. She is tolerating treatment with wound vac with some improvement. She no longer has necrotic tissue or slough at the base of the wound. Drainage is still heavy at times. Was heavier after debridement last week but decreased over the course of the week. She has had improvement in vaginal discharge since discontinuing the use of estradiol. Objective Data Objective Data Vital Signs: Vital Signs Temp Pulse Resp BP 96.9 F L 89 20 H 121/73 H 08/22/21 11:06 08/22/21 11:06 08/22/21 11:06 08/22/21 11:06 Weight: 180 kg Body Mass Index (BMI) 62.1 Physical Exam Const alert, oriented x3 and no apparent distress HEENT normocephalic and head/scalp atraumatic Resp normal respiratory effort Effort and Inspection: able to speak in complete sentences Auscultation: clear to auscultation bilaterally Cardio regular rate and regular rhythm Skin Wounds: wounds noted Wound Narrative: as in clinical panel Psych mental status grossly normal, thought process normal, cooperative and affect normal Debridement Note Debridement Note Wound debrided: right posterior labia Laterality: Right Wound Grade/Stage: Stage IV Type of Debridement: Excisional debridement Anesthesia Used: 4% Lidocaine Solution and - (lidocaine 2%) Depth: Down to and including healthy tissue, in the subcutaneous layer and to muscle Percentage of wound debrided: 100 Instrument Used: #15 blade and Forceps Tissue Removed: devitalized tissue, yellow slough Severity: Necrosis of Muscle Amount of bleeding with debridement: Moderate Bleeding Controlled with: Compression and gauze and Gel Foam Patient tolerated procedure: Patient tolerated procedure well Post-Debridement Measurements and Additional Note: Post-Debridement Measurements/Treatment WC - Nurse 1 - General Ulcer Assessment Start: 08/01/21 11:19 Freq: Status: Active Protocol: [email or web address] Activity Type Activity Date Activity User E-Sign Co-Sign Detail Recorded Client Recorded Date Recorded By Document 08/01/21 11:26 AK [id number] 08/01/21 11:30 AK Document 08/08/21 11:19 RB [id number] 08/08/21 11:21 RB Document 08/15/21 10:03 DL [id number] 08/15/21 10:04 DL Document 08/22/21 11:06 DL [id number] 08/22/21 11:21 DL 08/01/21 08/08/21 08/15/21 11:26 11:19 10:03 - Today's Visit Information Type of service Follow-up Visit Follow-up Visit Follow-up Visit (Physician/MACHINE I ENGRAVER (Physician/MACHINE I ENGRAVER (Physician/MACHINE I ENGRAVER ) ) ) Arrival Mode Wheelchair Wheelchair Wheelchair Transfer Assistance Other None Doug Lift Transfer Assist (Other) Patient Identification Verified (Name & Yes Yes ) Patient Requires Transmission-Based No No No Precautions Safety Precautions NA Height and Weight Body Mass Index (BMI) 62.1 62.1 62.1 BMI Classification Obese Obese Obese Vital Signs Temperature (97.8 F-99.1 F) 97.6 F L 96.4 F L 97.8 F Temperature Source Temporal Temporal Temporal Pulse Rate (60-100) 62 87 64 Pulse Location Monitor Monitor Monitor Respiratory Rate (12-18) 18 18 Respiratory rate source Observation Observation Blood Pressure (90/60-120/80) 125/74 H 133/87 H 138/68 H Blood Pressure Mean (mm Hg) 91 102 91 Source Monitor Monitor Monitor Position Semi-Fowlers Semi-Fowlers Blood Pressure Location Left Arm Left Arm History Since Last Visit- (Skip if this is Patient's initial visit) Have you changed medications since your No No No last visit? Any new allergies or adverse reactions No No No Had a fall/change in ADL's that may No No No increase risk of falls Signs or symptoms of abuse and/or No No No neglect since last visit Have you been in the hospital since your No No No last visit? Has dressing in place as prescribed Yes Yes Yes Has compression in place as prescribed N/A No No Has offloadiing in place as prescribed Yes No No Experienced any changes in pain level or No No No management Left Footwear Slipper Right Footwear Slipper Pain Scale: 0-10 Numeric Is Patient Pain Free? Yes Yes 08/22/21 11:06 - Today's Visit Information Type of service Follow-up Visit (Physician/MACHINE I ENGRAVER ) Arrival Mode Wheelchair Transfer Assistance Doug Lift Transfer Assist (Other) Patient Identification Verified (Name & Yes ) Patient Requires Transmission-Based No Precautions Safety Precautions NA Height and Weight Body Mass Index (BMI) 62.1 BMI Classification Obese Vital Signs Temperature (97.8 F-99.1 F) 96.9 F L Temperature Source Temporal Pulse Rate (60-100) 89 Pulse Location Monitor Respiratory Rate (12-18) 20 H Respiratory rate source Monitor Blood Pressure (90/60-120/80) 121/73 H Blood Pressure Mean (mm Hg) 89 Source Monitor Position Sitting Blood Pressure Location Right Arm History Since Last Visit- (Skip if this is Patient's initial visit) Have you changed medications since your No last visit? Any new allergies or adverse reactions No Had a fall/change in ADL's that may No increase risk of falls Signs or symptoms of abuse and/or No neglect since last visit Have you been in the hospital since your No last visit? Has dressing in place as prescribed Yes Has compression in place as prescribed Yes Has offloadiing in place as prescribed N/A Experienced any changes in pain level or No management Left Footwear Regular Shoe Right Footwear Regular Shoe Pain Scale: 0-10 Numeric Is Patient Pain Free? Yes WC - Nurse 1 - General Ulcer Measurement Start: 08/01/21 11:19 Freq: Status: Active Protocol: Activity Type Activity Date Activity User E-Sign Co-Sign Detail Recorded Client Recorded Date Recorded By Document 08/01/21 11:26 AK [id number] 08/01/21 11:30 AK Document 08/08/21 11:19 RB [id number] 08/08/21 11:21 RB Document 08/15/21 10:03 DL [id number] 08/15/21 10:04 DL Document 08/22/21 11:06 DL [id number] 08/22/21 11:21 DL 08/01/21 08/08/21 08/15/21 11:26 11:19 10:03 Wound Center Nurse 1 6. R posterior labia -Combined with other wound No No -Current Size (cm) - Length 1.5 1.1 1.8 -Current Size (cm) - Width 2.5 1.7 1.5 -Current Size (cm) - Depth 0.3 3.3 -Total Square Cm 3.75 1.87 2.70 -Photo Taken No No -Tunneling No No No -Undermining/Tunneling Yes No Yes -Undermining/Tunneling Starts (O'clock 11 7 ) -Undermining/Tunneling Ends (O'clock) 1 1 -Maximum Distance (cm) 3.8 4 -Circular Undermining No No No -Change in Wound Grade/Stage No -Exudate Amt Large Large Large -Exudate Type Serosanguineous Serosanguineous Serosanguineous -Wound Margin Distinct, Thickened & Thickened & Outline Rolled Under Rolled Under Attached -Granulation Amt None Present (0 Medium (34-66%) Medium (34-66%) %) -Granulation Quality Terminous Terminous -Slough/Fibrin No Yes Yes -Necrosis Amt Large (67-100%) Small (1-33%) Small (1-33%) -Necrotic Tissue Type Adherent Slough Adherent Slough Adherent Slough -Structure Exposed N/A N/A N/A -Texture (Janene-wound Skin Appearance) No Abnormality, Assessed, Scarring Assessed Scarring -Moisture (Janene-wound Skin Appearance) No Abnormality, Assessed Assessed Assessed -Color (Janene-wound Skin Appearance) No Abnormality, Assessed Assessed Assessed -Temperature (Janene-wound Skin No Abnormality No Abnormality No Abnormality Appearance) (Pt Warm) (Pt Warm) (Pt Warm) -Tenderness on Palpation (Janene-wound No No No Skin Appearance) -Ulcer Cleansing Rinsed/ Wound Cleanser Wound Cleanser Irrigated with Saline -Foul Odor after Cleansing No No No -Anesthetic Used 5% Lidocaine 5% Lidocaine 4% Lidocaine Gel Gel Solution 08/22/21 11:06 Wound Center Nurse 1 6. R posterior labia -Combined with other wound -Current Size (cm) - Length 2 -Current Size (cm) - Width 2 -Current Size (cm) - Depth 4.1 -Total Square Cm 4 -Photo Taken No -Tunneling -Undermining/Tunneling -Undermining/Tunneling Starts (O'clock ) -Undermining/Tunneling Ends (O'clock) -Maximum Distance (cm) -Circular Undermining -Change in Wound Grade/Stage -Exudate Amt Medium -Exudate Type Serosanguineous -Wound Margin Distinct, Outline Attached -Granulation Amt Large (67-100%) -Granulation Quality Red -Slough/Fibrin -Necrosis Amt Small (1-33%) -Necrotic Tissue Type Adherent Slough -Structure Exposed -Texture (Janene-wound Skin Appearance) Scarring -Moisture (Janene-wound Skin Appearance) No Abnormality -Color (Janene-wound Skin Appearance) No Abnormality -Temperature (Janene-wound Skin No Abnormality Appearance) (Pt Warm) -Tenderness on Palpation (Janene-wound No Skin Appearance) -Ulcer Cleansing Wound Cleanser -Foul Odor after Cleansing No -Anesthetic Used 4% Lidocaine Solution WC - Nurse 2 - General Ulcer CM Notes Start: 08/01/21 11:19 Freq: Status: Active Protocol: Activity Type Activity Date Activity User E-Sign Co-Sign Detail Recorded Client Recorded Date Recorded By Document 08/01/21 11:20 MW [id number] 08/01/21 11:25 MW Document 08/08/21 11:31 MW [id number] 08/08/21 11:39 MW Document 08/15/21 10:28 MW [id number] 08/15/21 10:37 MW Document 08/22/21 11:35 MW [id number] 08/22/21 12:50 MW 08/01/21 08/08/21 08/15/21 11:20 11:31 10:28 Wound Center Nurse 2 6. R posterior labia -Time 11:20 11:31 10:29 -Correct Patient Yes Yes Yes -Correct Side, Site, Position Yes Yes Yes -Correct Procedure Yes Yes Yes -Procedure Performed Yes Yes Yes -Type of Procedure Debridement Debridement Debridement -Clinical Debridement Subcutaneous Subcutaneous Subcutaneous -Tissue Removed Subcutaneous Subcutaneous Subcutaneous -Post Debridement (cm) - Length 2.2 1.7 2.3 -Post Debridement (cm) - Width 1.5 1.8 1.8 -Post Debridement (cm) - Depth 2.8 2.8 3.6 -Total Square (Post) (cm) 3.30 3.06 4.14 -Area of Debridement (cm) - Length 2.2 1.7 2.3 -Area of Debridement (cm) - Width 1.5 1.8 1.8 -Total Square (Area) (cm) 3.30 3.06 4.14 -Tunneling No No No -Undermining/Tunneling No Yes Yes -Undermining/Tunneling Starts (O'clock 12 12 ) -Undermining/Tunneling Ends (O'clock) 1 1 -Maximum Distance (cm) 5.4 7.4 -Circular Undermining No No No -Wound/Ulcer Outcome Not Healed Not Healed Not Healed -Ulcer Cleansing Rinsed/ Rinsed/ Rinsed/ Irrigated with Irrigated with Irrigated with Saline Saline Saline -Foul Odor after Cleansing No No No -Bioengineered Tissue No No No -Bleeding Controlled with Pressure Pressure Pressure -Offloading No No No -Treatment Response Procedure Procedure Procedure Tolerated Well Tolerated Well Tolerated Well -Debridement - Subq, 1st 20sq cm Yes Yes Yes Pain Scale: 0-10 Numeric Is Patient Pain Free? Yes Yes Yes 08/22/21 11:35 Wound Center Nurse 2 6. R posterior labia -Time 11:35 -Correct Patient Yes -Correct Side, Site, Position Yes -Correct Procedure Yes -Procedure Performed Yes -Type of Procedure Debridement -Clinical Debridement Subcutaneous -Tissue Removed Subcutaneous -Post Debridement (cm) - Length 4.1 -Post Debridement (cm) - Width 3.1 -Post Debridement (cm) - Depth 3.6 -Total Square (Post) (cm) 12.71 -Area of Debridement (cm) - Length 4.1 -Area of Debridement (cm) - Width 3.1 -Total Square (Area) (cm) 12.71 -Tunneling No -Undermining/Tunneling Yes -Undermining/Tunneling Starts (O'clock 12 ) -Undermining/Tunneling Ends (O'clock) 1 -Maximum Distance (cm) 7.8 -Circular Undermining No -Wound/Ulcer Outcome Not Healed -Ulcer Cleansing Rinsed/ Irrigated with Saline -Foul Odor after Cleansing No -Bioengineered Tissue No -Bleeding Controlled with Pressure -Offloading No -Treatment Response Procedure Tolerated Well -Debridement - Subq, 1st 20sq cm Yes Pain Scale: 0-10 Numeric Is Patient Pain Free? Yes - Nurse 3 - General Ulcer D/C NN Start: 08/01/21 11:19 Freq: Status: Active Protocol: Activity Type Activity Date Activity User E-Sign Co-Sign Detail Recorded Client Recorded Date Recorded By Document 08/01/21 11:51 DL [id number] 08/01/21 12:00 DL Document 08/08/21 11:41 RB [id number] 08/08/21 11:41 RB Document 08/15/21 10:59 DL [id number] 08/15/21 11:00 DL Document 08/22/21 13:20 RB [id number] 08/22/21 13:21 RB Edit Result 08/22/21 13:20 RB (1) [id number] 08/22/21 13:21 RB (1) 6. R posterior labia - NPWT Application Charge NPWT > 50 sq cm ($ => NPWT </= 50 sq cm ) => ($) 09/03/21 09/10/21 09/17/21 11:51 11:41 10:59 Wound Care Nurse 3 6. R posterior labia -Ulcer Cleansing Rinsed/ Wound Cleanser Rinsed/ Irrigated with Irrigated with Saline Saline -Foul Odor after Cleansing No No -Negative Pressure Wound Therapy Continue Continue Continue -Setting (mmHg) 150 150 150 -Negative Pressure is Continuous Continuous Continuous -NPWT Application Charge NPWT </= 50 sq NPWT </= 50 sq NPWT </= 50 sq cm ($) cm ($) cm ($) Janene-Wound Care Treatment Response Procedure Procedure Procedure Tolerated Well Tolerated Well Tolerated Well Pain Scale: 0-10 Numeric Is Patient Pain Free? Yes Yes Yes WC - Visit Discharge Discharge Condition Stable Stable Stable Ambulatory Status Wheelchair Wheelchair Wheelchair Transportation Private Auto Private Auto Private Auto Medication Reconcilliation completed & No provided to patient/care provider Clinical Summary of Care Provided Yes Facility Type Home Health Orders Sent Yes 08/22/21 13:20 Wound Care Nurse 3 6. R posterior labia -Ulcer Cleansing -Foul Odor after Cleansing -Negative Pressure Wound Therapy Continue -Setting (mmHg) 150 -Negative Pressure is Continuous -NPWT Application Charge NPWT </= 50 sq cm ($) Janene-Wound Care Barrier Treatment Response Procedure Tolerated Well Pain Scale: 0-10 Numeric Is Patient Pain Free? Yes WC - Visit Discharge Discharge Condition Stable Ambulatory Status Wheelchair Transportation Private Auto Medication Reconcilliation completed & No provided to patient/care provider Clinical Summary of Care Provided Yes Facility Type Orders Sent Assessment/Plan Assessment/Plan (1) Pressure ulcer of right buttock, stage 3: CODE(S): L89.313 - Pressure ulcer of right buttock, stage 3 (2) Multiple sclerosis: CODE(S): G35 - Multiple sclerosis (3) Debility: CODE(S): R53.81 - Other malaise (4) Bilateral lower extremity edema: CODE(S): R60.0 - Localized edema (5) Psoriasis: CODE(S): L40.9 - Psoriasis, unspecified PLAN: Zoey's ulcer was evaluated and debrided today at the wound healing center. Larger excision performed today after anesthetizing the area with 20 cc lidocaine. A wedge of tissue was excised to allow better visualization of the base and expose the tunneled area for better treatment with the wound vac. The fibrous tissue was removed. Gel foam was applied to control bleeding. Blood loss was approximately 20 cc. Wound vac reapplied today for heavy drainage and large defect of tissue with undermining. Will have them change this Wednesday and Wednesday and see her again on Wednesday. If vac loses seal and they are unable to get it to seal then will have her dress ulcer with Santyl to the wound bed, cover with Aquacel Ag and cover with moisture barrier dressing with cushion such as mepilix with border or optifoam with border with changes daily and as needed for soiling. Will obtain recent labs. Encouraged increased protein intake to support nutrition and optimize healing. Encouraged offloading of her right buttock/labia as much as possible in order to heal the ulcer. She and her were advised to call with any concerns or increased drainage, erythema or odor. She will return in 1 week for wound care.
== END 2021-08-28 23:59 ==
LOC: WC 11:00
PROVIDERS: PCP Family Medicine; Visit Provider Family Medicine
DX: L89.313 Pressure ulcer of right buttock, stage 3 (principal); G35 Multiple sclerosis; R60.0 Localized edema; L40.9 Psoriasis, unspecified; Z99.3 Dependence on wheelchair; Z74.01 Bed confinement status; E66.9 Obesity, unspecified; Z68.44 Body mass index [BMI] 60.0-69.9, adult
CPT/HCPCS: 11042; 97605

== ENCOUNTER 2021-09-26 11:30 | Outpatient (RCR) | payer MEDICARE, SELFPAY ==
[2021-08-29 00:13] VITALS: BP 121/73; PULSE 89; RESP 20; TEMP 36.1; BMI 62.1
[2021-08-29 11:00] VITALS: BP 106/69; PULSE 77; RESP 17; TEMP 36.2; BMI 62.1
--- NOTE | 2021-08-29 13:01 | PN.PCM_ITS ---
History of Present Illness Date of Service: 08/29/21 Chief Complaint: Right posterior labial pressure sore, Stage III History of Wound: Zoey is a 66 yo female that is bed bound/wheelchair bound from complications of MS that presents to the wound healing center today for evaluation and treatment of a pressure ulcer of her right posterior labia that has been present since January 2021. She had been doing well but had a pressure ulcer of her right posterior labia develop in January 2021 after an abrasion from transferring after a shower. Her began applying Santyl and Aquacel Ag for several weeks and then Aquacel Ag alone for moderate drainage to the wound at that time and it was nearly healed until several weeks ago she was at a bridal shower and was out of bed for a longer period of time and the following day there was significant bruising to the area and it began to become larger and drain more. For the last 2 weeks he had returned to applying Santyl and Aquacel Extra to the wound but was not noticing significant improvement and called to be seen at the wound healing center. Her helps with her care and he reports that she has significant vaginal drainage for the last several months since she has been being treated with Estradiol for vaginal itching. She uses a tablet vaginally 3 times/week and her notes that there is copious clear-king vaginal discharge. She has a suprapubic catheter in place so it is not likely that it is urine that is leaking. He finds it very difficult to keep the wound dry due to this drainage. She has an upcoming appointment with her winding rack operator on 07/16/2021 for recheck. She currently is not taking any antibiotics and she has not undergone any wound cultures of this ulcer. She denies fever, chills, nausea, vomiting or other systemic signs of infection. There is moderate to heavy drainage from the ulcer and they have been using Mepilix with border and Aquacel Ag and Santyl for the last 2 weeks. 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 Progress of Wound: Zoey's ulcer is mildly significantly improved. She is tolerating treatment with wound vac with some improvement. She no longer has necrotic tissue or slough at the base of the wound. Drainage is still heavy at times. Was heavier after debridement last week but decreased over the course of the week. She has had improvement in vaginal discharge since discontinuing the use of estradiol. Objective Data Objective Data Vital Signs: Vital Signs Temp Pulse Resp BP 97.1 F L 77 17 106/69 08/29/21 11:00 08/29/21 11:00 08/29/21 11:00 08/29/21 11:00 Weight: 180 kg Body Mass Index (BMI) 62.1 Physical Exam Const alert, oriented x3 and no apparent distress Nutritional Appearance: morbidly obese HEENT normocephalic and head/scalp atraumatic Resp normal respiratory effort Extremity General Extremity: edema bilateral lower extremity Details: trace Skin Wounds: wounds noted Wound Narrative: as in clinical panel Psych mental status grossly normal, thought process normal, cooperative, affect normal and speech normal Debridement Note Debridement Note Wound debrided: right posterior labia Laterality: Right Wound Grade/Stage: STage III Type of Debridement: Excisional debridement Anesthesia Used: 4% Lidocaine Solution Depth: Down to and including healthy tissue, in the subcutaneous layer and to muscle Percentage of wound debrided: 100 Instrument Used: 5mm curette Tissue Removed: Yellow slough, devitalized tissue Severity: Fat Layer Exposed Amount of bleeding with debridement: Mild Bleeding Controlled with: Compression and gauze Patient tolerated procedure: Patient tolerated procedure well Post-Debridement Measurements and Additional Note: Post-Debridement Measurements/Treatment - Nurse 1 - General Ulcer Assessment Start: 08/29/21 11:00 Freq: Status: Active Protocol: LINK Activity Type Activity Date Activity User E-Sign Co-Sign Detail Recorded Client Recorded Date Recorded By Document 08/29/21 11:00 ML [id number] 08/29/21 11:11 ML 08/29/21 11:00 - Today's Visit Information Type of service Follow-up Visit (Physician/GLUE REEL OPERATOR ) Arrival Mode Wheelchair Transfer Assistance None Patient Identification Verified (Name & Yes ) Patient Requires Transmission-Based No Precautions Safety Precautions NA Height and Weight Body Mass Index (BMI) 62.1 BMI Classification Obese Vital Signs Temperature (97.8 F-99.1 F) 97.1 F L Temperature Source Temporal Pulse Rate (60-100) 77 Pulse Location Monitor Respiratory Rate (12-18) 17 Respiratory rate source Monitor Blood Pressure (90/60-120/80) 106/69 Blood Pressure Mean (mm Hg) 81 Source Monitor Position Sitting Blood Pressure Location Left Arm History Since Last Visit- (Skip if this is Patient's initial visit) Have you changed medications since your No last visit? Any new allergies or adverse reactions No Had a fall/change in ADL's that may No increase risk of falls Signs or symptoms of abuse and/or No neglect since last visit Have you been in the hospital since your No last visit? Has dressing in place as prescribed Yes Has compression in place as prescribed No Has offloadiing in place as prescribed No Experienced any changes in pain level or No management Left Footwear Regular Shoe Right Footwear Regular Shoe Pain Scale: 0-10 Numeric Is Patient Pain Free? Yes WC - Nurse 1 - General Ulcer Measurement Start: 08/29/21 11:00 Freq: Status: Active Protocol: Activity Type Activity Date Activity User E-Sign Co-Sign Detail Recorded Client Recorded Date Recorded By Document 08/29/21 11:00 ML [id number] 08/29/21 11:11 ML 08/29/21 11:00 Wound Center Nurse 1 6. R posterior labia -Current Size (cm) - Length 2.5 -Current Size (cm) - Width 4.3 -Current Size (cm) - Depth 3 -Total Square Cm 10.75 -Undermining/Tunneling Yes -Undermining/Tunneling Starts (O'clock 1 ) -Undermining/Tunneling Ends (O'clock) 3 -Maximum Distance (cm) 5.2 -Exudate Type Serous -Wound Margin Distinct, Outline Attached -Granulation Amt Medium (34-66%) -Granulation Quality Hyper- granulation -Slough/Fibrin Yes -Necrosis Amt Medium (34-66%) -Necrotic Tissue Type Adherent Slough -Texture (Janene-wound Skin Appearance) Assessed -Moisture (Janene-wound Skin Appearance) Assessed -Color (Janene-wound Skin Appearance) Assessed -Ulcer Cleansing Soap and Water -Anesthetic Used 5% Lidocaine Gel WC - Nurse 2 - General Ulcer CM Notes Start: 08/29/21 11:00 Freq: Status: Active Protocol: Activity Type Activity Date Activity User E-Sign Co-Sign Detail Recorded Client Recorded Date Recorded By Document 08/29/21 11:30 MW [id number] 08/29/21 11:49 MW 08/29/21 11:30 Wound Center Nurse 2 -Time 11:31 -Correct Patient Yes -Correct Side, Site, Position Yes -Correct Procedure Yes -Procedure Performed Yes -Type of Procedure Debridement -Clinical Debridement Subcutaneous -Tissue Removed Subcutaneous -Post Debridement (cm) - Length 4.4 -Post Debridement (cm) - Width 2.5 -Post Debridement (cm) - Depth 3.9 -Total Square (Post) (cm) 11.00 -Area of Debridement (cm) - Length 4.4 -Area of Debridement (cm) - Width 2.5 -Total Square (Area) (cm) 11.00 -Tunneling Yes -Tunneling Position (O'clock) 1 -Tunneling Distance (cm) 6.4 -Undermining/Tunneling No -Undermining/Tunneling Starts (O'clock 12 ) -Undermining/Tunneling Ends (O'clock) 1 -Maximum Distance (cm) 4.3 -Circular Undermining No -Wound/Ulcer Outcome Not Healed -Ulcer Cleansing Rinsed/ Irrigated with Saline -Foul Odor after Cleansing No -Bioengineered Tissue No -Bleeding Controlled with Pressure -Offloading No -Treatment Response Procedure Tolerated Well -Debridement - Subq, 1st 20sq cm Yes Pain Scale: 0-10 Numeric Is Patient Pain Free? Yes WC - Nurse 3 - General Ulcer D/C NN Start: 08/29/21 11:00 Freq: Status: Active Protocol: Activity Type Activity Date Activity User E-Sign Co-Sign Detail Recorded Client Recorded Date Recorded By Document 08/29/21 12:35 RB [id number] 08/29/21 12:37 RB 08/29/21 12:35 Wound Care Nurse 3 6. R posterior labia -Ulcer Cleansing Wound Cleanser -Negative Pressure Wound Therapy Continue -Setting (mmHg) 150 -Negative Pressure is Continuous -NPWT Application Charge NPWT </= 50 sq cm ($) Treatment Response Procedure Tolerated Well WC - Visit Discharge Discharge Condition Stable Ambulatory Status Wheelchair Transportation Private Auto Medication Reconcilliation completed & No provided to patient/care provider Clinical Summary of Care Provided Yes Assessment/Plan Assessment/Plan (1) Pressure ulcer of right buttock, stage 3: CODE(S): L89.313 - Pressure ulcer of right buttock, stage 3 (2) Multiple sclerosis: CODE(S): G35 - Multiple sclerosis (3) Psoriasis: CODE(S): L40.9 - Psoriasis, unspecified PLAN: Zoey's ulcer was evaluated and debrided today at the wound healing center. Wound vac reapplied today for heavy drainage and large defect of tissue with undermining. Will have them change this Wednesday and Wednesday and Wednesday. If vac loses seal and they are unable to get it to seal then will have her dress ulcer with Santyl to the wound bed, cover with Aquacel Ag and cover with moisture barrier dressing with cushion such as mepilix with border or optifoam with border with changes daily and as needed for soiling. Labs ordered. Encouraged increased protein intake to support nutrition and optimize healing. Encouraged offloading of her right buttock/labia as much as possible in order to heal the ulcer. She and her were advised to call with any concerns or increased drainage, erythema or odor. She will return in 2 weeks for wound care.
[2021-09-12 11:15] VITALS: BP 148/85; PULSE 83; RESP 20; TEMP 36.9; BMI 62.1
--- NOTE | 2021-09-12 15:41 | PN.PCM_ITS ---
History of Present Illness Date of Service: 09/12/21 Chief Complaint: Right posterior labial pressure sore, Stage III History of Wound: Zoey is a 66 yo female that is bed bound/wheelchair bound from complications of MS that presents to the wound healing center today for evaluation and treatment of a pressure ulcer of her right posterior labia that has been present since January 2021. She had been doing well but had a pressure ulcer of her right posterior labia develop in January 2021 after an abrasion from transferring after a shower. Her began applying Santyl and Aquacel Ag for several weeks and then Aquacel Ag alone for moderate drainage to the wound at that time and it was nearly healed until several weeks ago she was at a bridal shower and was out of bed for a longer period of time and the following day there was significant bruising to the area and it began to become larger and drain more. For the last 2 weeks he had returned to applying Santyl and Aquacel Extra to the wound but was not noticing significant improvement and called to be seen at the wound healing center. Her helps with her care and he reports that she has significant vaginal drainage for the last several months since she has been being treated with Estradiol for vaginal itching. She uses a tablet vaginally 3 times/week and her notes that there is copious clear-king vaginal discharge. She has a suprapubic catheter in place so it is not likely that it is urine that is leaking. He finds it very difficult to keep the wound dry due to this drainage. She has an upcoming appointment with her prototype engineer on 07/16/2021 for recheck. She currently is not taking any antibiotics and she has not undergone any wound cultures of this ulcer. She denies fever, chills, nausea, vomiting or other systemic signs of infection. There is moderate to heavy drainage from the ulcer and they have been using Mepilix with border and Aquacel Ag and Santyl for the last 2 weeks. 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 Progress of Wound: Zoey's ulcer is somewhat improved. She is tolerating treatment with wound vac with some improvement. She no longer has necrotic tissue or slough at the base of the wound. Drainage is still heavy at times. She has had improvement in vaginal discharge since discontinuing the use of estradiol. Objective Data Objective Data Vital Signs: Vital Signs Temp Pulse Resp BP 98.4 F 83 20 H 148/85 H 09/12/21 11:15 09/12/21 11:15 09/12/21 11:15 09/12/21 11:15 Weight: 180 kg Body Mass Index (BMI) 62.1 Physical Exam Const alert, oriented x3 and no apparent distress Nutritional Appearance: morbidly obese HEENT normocephalic and head/scalp atraumatic Resp normal respiratory effort Extremity General Extremity: edema bilateral lower extremity Details: trace Skin Wounds: wounds noted Wound Narrative: as in clinical panel Psych mental status grossly normal, thought process normal, cooperative, affect normal and speech normal Debridement Note Debridement Note Wound debrided: right posterior labia Laterality: Right Wound Grade/Stage: Stage III Type of Debridement: Excisional debridement Anesthesia Used: 4% Lidocaine Solution Depth: Down to and including healthy tissue, in the subcutaneous layer and to muscle Percentage of wound debrided: 100 Instrument Used: 5mm curette Tissue Removed: Yellow slough, devitalized tissue Severity: Fat Layer Exposed Amount of bleeding with debridement: Mild Bleeding Controlled with: Compression and gauze Patient tolerated procedure: Patient tolerated procedure well Post-Debridement Measurements and Additional Note: Post-Debridement Measurements/Treatment WC - Nurse 1 - General Ulcer Assessment Start: 08/29/21 11:00 Freq: Status: Active Protocol: LINK Activity Type Activity Date Activity User E-Sign Co-Sign Detail Recorded Client Recorded Date Recorded By Document 08/29/21 11:00 ML [id number] 08/29/21 11:11 ML Document 09/12/21 11:15 DL [id number] 09/12/21 11:17 DL 08/29/21 09/12/21 11:00 11:15 WC - Today's Visit Information Type of service Follow-up Visit Follow-up Visit (Physician/BEHAVIORAL HEALTH CASE MANAGER (Physician/BEHAVIORAL HEALTH CASE MANAGER ) ) Arrival Mode Wheelchair Wheelchair Transfer Assistance None Doug Lift Transfer Assist (Other) x2 Patient Identification Verified (Name & Yes Yes ) Patient Requires Transmission-Based No No Precautions Safety Precautions NA Height and Weight Body Mass Index (BMI) 62.1 62.1 BMI Classification Obese Obese Vital Signs Temperature (97.8 F-99.1 F) 97.1 F L 98.4 F Temperature Source Temporal Temporal Pulse Rate (60-100) 77 83 Pulse Location Monitor Monitor Respiratory Rate (12-18) 17 20 H Respiratory rate source Monitor Observation Blood Pressure (90/60-120/80) 106/69 148/85 H Blood Pressure Mean (mm Hg) 81 106 Source Monitor Monitor Position Sitting Blood Pressure Location Left Arm History Since Last Visit- (Skip if this is Patient's initial visit) Have you changed medications since your No No last visit? Any new allergies or adverse reactions No No Had a fall/change in ADL's that may No No increase risk of falls Signs or symptoms of abuse and/or No No neglect since last visit Have you been in the hospital since your No No last visit? Has dressing in place as prescribed Yes Yes Has compression in place as prescribed No N/A Has offloadiing in place as prescribed No Yes Experienced any changes in pain level or No No management Left Footwear Regular Shoe Right Footwear Regular Shoe Pain Scale: 0-10 Numeric Is Patient Pain Free? Yes Yes WC - Nurse 1 - General Ulcer Measurement Start: 08/29/21 11:00 Freq: Status: Active Protocol: Activity Type Activity Date Activity User E-Sign Co-Sign Detail Recorded Client Recorded Date Recorded By Document 08/29/21 11:00 ML [id number] 08/29/21 11:11 ML Document 09/12/21 11:15 DL [id number] 09/12/21 11:17 DL Edit Result 09/12/21 11:15 DL (1) [id number] 09/12/21 11:19 DL (1) 6. R posterior labia - Undermining/Tunneling Starts (O'clock) => 12 - Undermining/Tunneling Ends (O'clock) => 6 - Maximum Distance #2 (cm) => 4.8 08/29/21 09/12/21 11:00 11:15 Wound Center Nurse 1 6. R posterior labia -Current Size (cm) - Length 2.5 2 -Current Size (cm) - Width 4.3 3 -Current Size (cm) - Depth 3 2.8 -Total Square Cm 10.75 6 -Photo Taken No -Undermining/Tunneling Yes -Undermining/Tunneling Starts (O'clock 1 12 ) -Undermining/Tunneling Ends (O'clock) 3 6 -Maximum Distance (cm) 5.2 -Maximum Distance #2 (cm) 4.8 -Exudate Amt Medium -Exudate Type Serous Serosanguineous -Wound Margin Distinct, Distinct, Outline Outline Attached Attached -Granulation Amt Medium (34-66%) Large (67-100%) -Granulation Quality Hyper- Red granulation -Slough/Fibrin Yes -Necrosis Amt Medium (34-66%) None Present (0 %) -Necrotic Tissue Type Adherent Slough -Structure Exposed N/A -Texture (Janene-wound Skin Appearance) Assessed Scarring -Moisture (Janene-wound Skin Appearance) Assessed No Abnormality -Color (Janene-wound Skin Appearance) Assessed No Abnormality -Temperature (Janene-wound Skin No Abnormality Appearance) (Pt Warm) -Tenderness on Palpation (Janene-wound No Skin Appearance) -Ulcer Cleansing Soap and Water Soap and Water -Foul Odor after Cleansing No -Anesthetic Used 5% Lidocaine 4% Lidocaine Gel Solution WC - Nurse 2 - General Ulcer CM Notes Start: 08/29/21 11:00 Freq: Status: Active Protocol: Activity Type Activity Date Activity User E-Sign Co-Sign Detail Recorded Client Recorded Date Recorded By Document 08/29/21 11:30 MW [id number] 08/29/21 11:49 MW Document 09/12/21 11:50 MW [id number] 09/12/21 12:04 MW 08/29/21 09/12/21 11:30 11:50 Wound Center Nurse 2 6. R posterior labia -Time 11:31 11:50 -Correct Patient Yes Yes -Correct Side, Site, Position Yes Yes -Correct Procedure Yes Yes -Procedure Performed Yes Yes -Type of Procedure Debridement Debridement -Clinical Debridement Subcutaneous Subcutaneous -Tissue Removed Subcutaneous Subcutaneous -Post Debridement (cm) - Length 4.4 3.0 -Post Debridement (cm) - Width 2.5 3.0 -Post Debridement (cm) - Depth 3.9 2.7 -Total Square (Post) (cm) 11.00 9.00 -Area of Debridement (cm) - Length 4.4 3.0 -Area of Debridement (cm) - Width 2.5 3.0 -Total Square (Area) (cm) 11.00 9.00 -Tunneling Yes No -Tunneling Position (O'clock) 1 -Tunneling Distance (cm) 6.4 -Undermining/Tunneling No No -Undermining/Tunneling Starts (O'clock 12 ) -Undermining/Tunneling Ends (O'clock) 1 -Maximum Distance (cm) 4.3 -Circular Undermining No No -Wound/Ulcer Outcome Not Healed Not Healed -Ulcer Cleansing Rinsed/ Rinsed/ Irrigated with Irrigated with Saline Saline -Foul Odor after Cleansing No No -Bioengineered Tissue No No -Bleeding Controlled with Pressure Pressure -Offloading No No -Treatment Response Procedure Procedure Tolerated Well Tolerated Well -Debridement - Subq, 1st 20sq cm Yes Yes Pain Scale: 0-10 Numeric Is Patient Pain Free? Yes Yes - Nurse 3 - General Ulcer D/C NN Start: 08/29/21 11:00 Freq: Status: Active Protocol: Activity Type Activity Date Activity User E-Sign Co-Sign Detail Recorded Client Recorded Date Recorded By Document 08/29/21 12:35 RB [id number] 08/29/21 12:37 RB Document 09/12/21 12:44 RB [id number] 09/12/21 12:46 RB 08/29/21 09/12/21 12:35 12:44 Wound Care Nurse 3 6. R posterior labia -Ulcer Cleansing Wound Cleanser Rinsed/ Irrigated with Saline -Negative Pressure Wound Therapy Continue Continue -Setting (mmHg) 150 150 -Negative Pressure is Continuous Continuous -Other Dressing santyl -NPWT Application Charge NPWT </= 50 sq NPWT </= 50 sq cm ($) cm ($) Treatment Response Procedure Procedure Tolerated Well Tolerated Well Pain Scale: 0-10 Numeric Is Patient Pain Free? Yes - Visit Discharge Discharge Condition Stable Stable Ambulatory Status Wheelchair Wheelchair Transportation Private Auto Private Auto Medication Reconcilliation completed & No No provided to patient/care provider Clinical Summary of Care Provided Yes Yes Assessment/Plan Assessment/Plan (1) Pressure ulcer of right buttock, stage 3: CODE(S): L89.313 - Pressure ulcer of right buttock, stage 3 (2) Multiple sclerosis: CODE(S): G35 - Multiple sclerosis (3) Psoriasis: CODE(S): L40.9 - Psoriasis, unspecified PLAN: Zoey's ulcer was evaluated and debrided today at the wound healing center. Wound vac reapplied today for heavy drainage and large defect of tissue with undermining. Santyl was applied only for today to help debride some areas of ulcer before wound vac applied. Will have them change this Wednesday and Wednesday and Wednesday. If vac loses seal and they are unable to get it to seal then will have her dress ulcer with Santyl to the wound bed, cover with Aquacel Ag and cover with moisture barrier dressing with cushion such as mepilix with border or optifoam with border with changes daily and as needed for soiling. Labs reveal adequate nutrition and otherwise were not significantly abnormal. Encouraged increased protein intake to support nutrition and optimize healing. Encouraged offloading of her right buttock/labia as much as possible in order to heal the ulcer. She and her were advised to call with any concerns or increased drainage, erythema or odor. She will return in 1 week for wound care.
[2021-09-19 11:33] VITALS: BP 142/85; PULSE 85; TEMP 35.8; BMI 62.1
--- NOTE | 2021-09-19 15:15 | PN.PCM_ITS ---
History of Present Illness Date of Service: 09/19/21 Chief Complaint: Right posterior labial pressure sore, Stage III History of Wound: Zoey is a 66 yo female that is bed bound/wheelchair bound from complications of MS that presents to the wound healing center today for evaluation and treatment of a pressure ulcer of her right posterior labia that has been present since January 2021. She had been doing well but had a pressure ulcer of her right posterior labia develop in January 2021 after an abrasion from transferring after a shower. Her began applying Santyl and Aquacel Ag for several weeks and then Aquacel Ag alone for moderate drainage to the wound at that time and it was nearly healed until several weeks ago she was at a bridal shower and was out of bed for a longer period of time and the following day there was significant bruising to the area and it began to become larger and drain more. For the last 2 weeks he had returned to applying Santyl and Aquacel Extra to the wound but was not noticing significant improvement and called to be seen at the wound healing center. Her helps with her care and he reports that she has significant vaginal drainage for the last several months since she has been being treated with Estradiol for vaginal itching. She uses a tablet vaginally 3 times/week and her notes that there is copious clear-king vaginal discharge. She has a suprapubic catheter in place so it is not likely that it is urine that is leaking. He finds it very difficult to keep the wound dry due to this drainage. She has an upcoming appointment with her groundhand on 07/16/2021 for recheck. She currently is not taking any antibiotics and she has not undergone any wound cultures of this ulcer. She denies fever, chills, nausea, vomiting or other systemic signs of infection. There is moderate to heavy drainage from the ulcer and they have been using Mepilix with border and Aquacel Ag and Santyl for the last 2 weeks. 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 Progress of Wound: Zoey's ulcer is somewhat improved. She is tolerating treatment with wound vac with some improvement. She no longer has necrotic tissue or slough at the base of the wound. Drainage is still heavy at times. She has had improvement in vaginal discharge since discontinuing the use of estradiol. Objective Data Objective Data Vital Signs: Vital Signs Temp Pulse Resp BP 96.5 F L 85 20 H 142/85 H 09/19/21 11:33 09/19/21 11:33 09/12/21 11:15 09/19/21 11:33 Weight: 180 kg Body Mass Index (BMI) 62.1 Physical Exam Const alert, oriented x3 and no apparent distress Nutritional Appearance: morbidly obese HEENT normocephalic and head/scalp atraumatic Resp normal respiratory effort Extremity General Extremity: edema bilateral lower extremity Details: trace Skin Wounds: wounds noted Wound Narrative: as in clinical panel Psych mental status grossly normal, thought process normal, cooperative, affect normal and speech normal Debridement Note Debridement Note Wound debrided: right posterior labia Laterality: Right Wound Grade/Stage: Stage III Type of Debridement: Excisional debridement Anesthesia Used: 4% Lidocaine Solution Depth: Down to and including healthy tissue and in the subcutaneous layer Percentage of wound debrided: 100 Instrument Used: 5mm curette Tissue Removed: Yellow slough, devitalized tissue Severity: Fat Layer Exposed Amount of bleeding with debridement: Mild Bleeding Controlled with: Compression and gauze Patient tolerated procedure: Patient tolerated procedure well Post-Debridement Measurements and Additional Note: Post-Debridement Gloria surements/Treatment - Nurse 1 - General Ulcer Assessment Start: 08/29/21 11:00 Freq: Status: Active Protocol: LINK Activity Type Activity Date Activity User E-Sign Co-Sign Detail Recorded Client Recorded Date Recorded By Document 08/29/21 11:00 ML [id number] 08/29/21 11:11 ML Document 09/12/21 11:15 DL [id number] 09/12/21 11:17 DL Document 09/19/21 11:33 AK [id number] 09/19/21 11:37 AK 08/29/21 09/12/21 09/19/21 11:00 11:15 11:33 - Today's Visit Information Type of service Follow-up Visit Follow-up Visit Follow-up Visit (Physician/BLOOD AND PLASMA LABORATORY ASSISTANT (Physician/BLOOD AND PLASMA LABORATORY ASSISTANT (Physician/BLOOD AND PLASMA LABORATORY ASSISTANT ) ) ) Arrival Mode Wheelchair Wheelchair Wheelchair Transfer Assistance None Doug Lift Doug Lift Transfer Assist (Other) x2 assisted Patient Identification Verified (Name & Yes Yes Yes ) Patient Requires Transmission-Based No No No Precautions Safety Precautions NA NA Height and Weight Body Mass Index (BMI) 62.1 62.1 62.1 BMI Classification Obese Obese Obese Vital Signs Temperature (97.8 F-99.1 F) 97.1 F L 98.4 F 96.5 F L Temperature Source Temporal Temporal Temporal Pulse Rate (60-100) 77 83 85 Pulse Location Monitor Monitor Monitor Respiratory Rate (12-18) 17 20 H Respiratory rate source Monitor Observation Ausculation Blood Pressure (90/60-120/80) 106/69 148/85 H 142/85 H Blood Pressure Mean (mm Hg) 81 106 104 Source Monitor Monitor Monitor Position Sitting Blood Pressure Location Left Arm History Since Last Visit- (Skip if this is Patient's initial visit) Have you changed medications since your No No No last visit? Any new allergies or adverse reactions No No No Had a fall/change in ADL's that may No No No increase risk of falls Signs or symptoms of abuse and/or No No No neglect since last visit Have you been in the hospital since your No No No last visit? Has dressing in place as prescribed Yes Yes Yes Has compression in place as prescribed No N/A N/A Has offloadiing in place as prescribed No Yes Yes Experienced any changes in pain level or No No No management Left Footwear Regular Shoe Slipper Right Footwear Regular Shoe Slipper Pain Scale: 0-10 Numeric Is Patient Pain Free? Yes Yes WC - Nurse 1 - General Ulcer Measurement Start: 08/29/21 11:00 Freq: Status: Active Protocol: Activity Type Activity Date Activity User E-Sign Co-Sign Detail Recorded Client Recorded Date Recorded By Document 08/29/21 11:00 ML [id number] 08/29/21 11:11 ML Document 09/12/21 11:15 DL [id number] 09/12/21 11:17 DL Edit Result 09/12/21 11:15 DL (1) [id number] 09/12/21 11:19 DL Document 09/19/21 11:33 AK [id number] 09/19/21 11:37 AK (1) 6. R posterior labia - Undermining/Tunneling Starts (O'clock) => 12 - Undermining/Tunneling Ends (O'clock) => 6 - Maximum Distance #2 (cm) => 4.8 08/29/21 09/12/21 09/19/21 11:00 11:15 11:33 Wound Center Nurse 1 6. R posterior labia -Combined with other wound No -Current Size (cm) - Length 2.5 2 2 -Current Size (cm) - Width 4.3 3 3.5 -Current Size (cm) - Depth 3 2.8 0.2 -Total Square Cm 10.75 6 7.0 -Photo Taken No No -Epithelialization None Present -Tunneling Yes -Tunneling Position (O'clock) 11 -Tunneling Distance (cm) 3.5 -Tunneling Position #2 (O'clock) 1 -Undermining/Tunneling Yes No -Undermining/Tunneling Starts (O'clock 1 12 ) -Undermining/Tunneling Ends (O'clock) 3 6 -Maximum Distance (cm) 5.2 -Maximum Distance #2 (cm) 4.8 -Circular Undermining No -Exudate Amt Medium Medium -Exudate Type Serous Serosanguineous Serosanguineous -Wound Margin Distinct, Distinct, Distinct, Outline Outline Outline Attached Attached Attached -Granulation Amt Medium (34-66%) Large (67-100%) Large (67-100%) -Granulation Quality Hyper- Red Red granulation -Slough/Fibrin Yes Yes -Necrosis Amt Medium (34-66%) None Present (0 Small (1-33%) %) -Necrotic Tissue Type Adherent Slough Adherent Slough -Structure Exposed N/A None/Limited to Skin Breakdown -Texture (Janene-wound Skin Appearance) Assessed Scarring No Abnormality, Assessed -Moisture (Janene-wound Skin Appearance) Assessed No Abnormality No Abnormality, Assessed -Color (Janene-wound Skin Appearance) Assessed No Abnormality No Abnormality, Assessed -Temperature (Janene-wound Skin No Abnormality No Abnormality Appearance) (Pt Warm) (Pt Warm) -Tenderness on Palpation (Janene-wound No Yes Skin Appearance) -Ulcer Cleansing Soap and Water Soap and Water Soap and Water -Foul Odor after Cleansing No No -Anesthetic Used 5% Lidocaine 4% Lidocaine 4% Lidocaine Gel Solution Solution WC - Nurse 2 - General Ulcer CM Notes Start: 08/29/21 11:00 Freq: Status: Active Protocol: Activity Type Activity Date Activity User E-Sign Co-Sign Detail Recorded Client Recorded Date Recorded By Document 08/29/21 11:30 MW [id number] 08/29/21 11:49 MW Document 09/12/21 11:50 MW [id number] 09/12/21 12:04 MW Document 09/19/21 12:12 MW [id number] 09/19/21 12:30 MW 08/29/21 09/12/21 09/19/21 11:30 11:50 12:12 Wound Center Nurse 2 6. R posterior labia -Time 11:31 11:50 12:12 -Correct Patient Yes Yes Yes -Correct Side, Site, Position Yes Yes Yes -Correct Procedure Yes Yes Yes -Procedure Performed Yes Yes Yes -Type of Procedure Debridement Debridement Debridement -Clinical Debridement Subcutaneous Subcutaneous Subcutaneous -Tissue Removed Subcutaneous Subcutaneous Subcutaneous -Post Debridement (cm) - Length 4.4 3.0 2.3 -Post Debridement (cm) - Width 2.5 3.0 3.8 -Post Debridement (cm) - Depth 3.9 2.7 3.8 -Total Square (Post) (cm) 11.00 9.00 8.74 -Area of Debridement (cm) - Length 4.4 3.0 2.3 -Area of Debridement (cm) - Width 2.5 3.0 3.8 -Total Square (Area) (cm) 11.00 9.00 8.74 -Tunneling Yes No No -Tunneling Position (O'clock) 1 -Tunneling Distance (cm) 6.4 -Undermining/Tunneling No No Yes -Undermining/Tunneling Starts (O'clock 12 12 ) -Undermining/Tunneling Ends (O'clock) 1 1 -Maximum Distance (cm) 4.3 5.4 -Circular Undermining No No No -Wound/Ulcer Outcome Not Healed Not Healed Not Healed -Ulcer Cleansing Rinsed/ Rinsed/ Rinsed/ Irrigated with Irrigated with Irrigated with Saline Saline Saline -Foul Odor after Cleansing No No No -Bioengineered Tissue No No No -Bleeding Controlled with Pressure Pressure Pressure -Offloading No No No -Treatment Response Procedure Procedure Procedure Tolerated Well Tolerated Well Tolerated Well -Debridement - Subq, 1st 20sq cm Yes Yes Yes Pain Scale: 0-10 Numeric Is Patient Pain Free? Yes Yes Yes WC - Nurse 3 - General Ulcer D/C NN Start: 08/29/21 11:00 Freq: Status: Active Protocol: Activity Type Activity Date Activity User E-Sign Co-Sign Detail Recorded Client Recorded Date Recorded By Document 08/29/21 12:35 RB [id number] 08/29/21 12:37 RB Document 09/12/21 12:44 RB [id number] 09/12/21 12:46 RB Document 09/19/21 13:13 RB [id number] 09/19/21 13:14 RB 08/29/21 09/12/21 09/19/21 12:35 12:44 13:13 Wound Care Nurse 3 6. R posterior labia -Ulcer Cleansing Wound Cleanser Rinsed/ Wound Cleanser Irrigated with Saline -Negative Pressure Wound Therapy Continue Continue Continue -Setting (mmHg) 150 150 150 -Negative Pressure is Continuous Continuous Continuous -Other Dressing santyl -NPWT Application Charge NPWT </= 50 sq NPWT </= 50 sq NPWT </= 50 sq cm ($) cm ($) cm ($) Janene-Wound Care Barrier Treatment Response Procedure Procedure Procedure Tolerated Well Tolerated Well Tolerated Well Pain Scale: 0-10 Numeric Is Patient Pain Free? Yes Yes WC - Visit Discharge Discharge Condition Stable Stable Stable Ambulatory Status Wheelchair Wheelchair Wheelchair Transportation Private Auto Private Auto Private Auto Medication Reconcilliation completed & No No No provided to patient/care provider Clinical Summary of Care Provided Yes Yes Yes Assessment/Plan Assessment/Plan (1) Pressure ulcer of right buttock, stage 3: CODE(S): L89.313 - Pressure ulcer of right buttock, stage 3 (2) Multiple sclerosis: CODE(S): G35 - Multiple sclerosis (3) Psoriasis: CODE(S): L40.9 - Psoriasis, unspecified PLAN: Zoey's ulcer was evaluated and debrided today at the wound healing center. Wound vac reapplied today for heavy drainage and large defect of tissue with undermining. Santyl will be applied to the wound bed prior to wound vac placement. Will have them change this Wednesday and Wednesday and Wednesday. If vac loses seal and they are unable to get it to seal then will have her dress ulcer with Santyl to the wound bed, cover with Aquacel Ag and cover with moisture barrier dressing with cushion such as mepilix with border or optifoam with border with changes daily and as needed for soiling. Wound culture taken today to evaluate for infection. Due to the poor progression of her ulcer, she would benefit from application of a skin substitute such as Epifix in order to heal her ulcer and hopefully avoid need for surgical treatment and closure with a skin flap or graft. Labs reveal adequate nutrition and otherwise were not significantly abnormal. Encouraged increased protein intake to support nutrition and optimize healing. Encouraged offloading of her right buttock/labia as much as possible in order to heal the ulcer. She and her were advised to call with any concerns or increased drainage, erythema or odor. She will return in 1 week for wound care.
[2021-09-26 11:52] VITALS: BP 132/74; PULSE 88; RESP 20; TEMP 36.2; BMI 62.1
--- NOTE | 2021-09-26 14:28 | PCM.WC.PN ---
History of Present Illness Date of Service: 09/26/21 Chief Complaint: Right posterior labial pressure sore, Stage III History of Wound: Zoey is a 66 yo female that is bed bound/wheelchair bound from complications of MS that presents to the wound healing center today for evaluation and treatment of a pressure ulcer of her right posterior labia that has been present since January 2021. She had been doing well but had a pressure ulcer of her right posterior labia develop in January 2021 after an abrasion from transferring after a shower. Her began applying Santyl and Aquacel Ag for several weeks and then Aquacel Ag alone for moderate drainage to the wound at that time and it was nearly healed until several weeks ago she was at a bridal shower and was out of bed for a longer period of time and the following day there was significant bruising to the area and it began to become larger and drain more. For the last 2 weeks he had returned to applying Santyl and Aquacel Extra to the wound but was not noticing significant improvement and called to be seen at the wound healing center. Her helps with her care and he reports that she has significant vaginal drainage for the last several months since she has been being treated with Estradiol for vaginal itching. She uses a tablet vaginally 3 times/week and her notes that there is copious clear-king vaginal discharge. She has a suprapubic catheter in place so it is not likely that it is urine that is leaking. He finds it very difficult to keep the wound dry due to this drainage. She has an upcoming appointment with her sql programmer analyst on 07/16/2021 for recheck. She currently is not taking any antibiotics and she has not undergone any wound cultures of this ulcer. She denies fever, chills, nausea, vomiting or other systemic signs of infection. There is moderate to heavy drainage from the ulcer and they have been using Mepilix with border and Aquacel Ag and Santyl for the last 2 weeks. 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 Progress of Wound: Zoey's ulcer is somewhat improved. She is tolerating treatment with wound vac with some improvement. She no longer has necrotic tissue or slough at the base of the wound. Drainage is still heavy at times. She has had improvement in vaginal discharge since discontinuing the use of estradiol. Wound culture was positive last week for E. coli, Corynebacterium, Staph epidermidis and anaerobic bacteria. She was started on Augmentin and Ciprofloxacin. Objective Data Objective Data Vital Signs: Vital Signs Temp Pulse Resp BP 97.1 F L 88 20 H 132/74 H 09/26/21 11:52 09/26/21 11:52 09/26/21 11:52 09/26/21 11:52 Weight: 180 kg Body Mass Index (BMI) 62.1 Lab / Micro Data Micro: Microbiology 09/19/21 12:30 Wound - No Site/Description Given Gram Stain - Final 09/19/21 12:30 Wound - No Site/Description Given Wound Culture - Final Escherichia coli Morganella morganii sp sibonii Corynebacterium minutissimum Staphylococcus epidermidis 09/19/21 12:30 Wound - No Site/Description Given Anaerobic Culture - Final Anaerobic cocci Physical Exam Const alert, oriented x3 and no apparent distress Nutritional Appearance: morbidly obese HEENT normocephalic and head/scalp atraumatic Resp normal respiratory effort Extremity General Extremity: edema bilateral lower extremity Details: trace Skin Wounds: wounds noted Wound Narrative: as in clinical panel Psych mental status grossly normal, thought process normal, cooperative, affect normal and speech normal Debridement Note Debridement Note Wound debrided: right posterior labia Laterality: Right Wound Grade/Stage: Stage III Type of Debridement: Excisional debridement Anesthesia Used: 4% Lidocaine Solution Depth: Down to and including healthy tissue, in the subcutaneous layer and to muscle Percentage of wound debrided: 100 Instrument Used: 7mm curette Tissue Removed: Yellow slough, devitalized tissue Severity: Fat Layer Exposed Amount of bleeding with debridement: Mild Bleeding Controlled with: Compression and gauze Patient tolerated procedure: Patient tolerated procedure well Post-Debridement Measurements and Additional Note: Post-Debridement Measurements/Treatment LOUISE - Nurse 1 - General Ulcer Assessment Start: 08/29/21 11:00 Freq: Status: Active Protocol: LINK Activity Type Activity Date Activity User E-Sign Co-Sign Detail Recorded Client Recorded Date Recorded By Document 08/29/21 11:00 ML [id number] 08/29/21 11:11 ML Document 09/12/21 11:15 DL [id number] 09/12/21 11:17 DL Document 09/19/21 11:33 AK [id number] 09/19/21 11:37 AK Document 09/26/21 11:52 DL [id number] 09/26/21 11:54 DL 08/29/21 09/12/21 09/19/21 11:00 11:15 11:33 WC - Today's Visit Information Type of service Follow-up Visit Follow-up Visit Follow-up Visit (Physician/DISTANCE LEARNING UNIT LEADER (Physician/DISTANCE LEARNING UNIT LEADER (Physician/DISTANCE LEARNING UNIT LEADER ) ) ) Arrival Mode Wheelchair Wheelchair Wheelchair Transfer Assistance None Doug Lift Doug Lift Transfer Assist (Other) x2 assisted Patient Identification Verified (Name & Yes Yes Yes ) Patient Requires Transmission-Based No No No Precautions Safety Precautions NA NA Height and Weight Body Mass Index (BMI) 62.1 62.1 62.1 BMI Classification Obese Obese Obese Vital Signs Temperature (97.8 F-99.1 F) 97.1 F L 98.4 F 96.5 F L Temperature Source Temporal Temporal Temporal Pulse Rate (60-100) 77 83 85 Pulse Location Monitor Monitor Monitor Respiratory Rate (12-18) 17 20 H Respiratory rate source Monitor Observation Ausculation Blood Pressure (90/60-120/80) 106/69 148/85 H 142/85 H Blood Pressure Mean (mm Hg) 81 106 104 Source Monitor Monitor Monitor Position Sitting Blood Pressure Location Left Arm History Since Last Visit- (Skip if this is Patient's initial visit) Have you changed medications since your No No No last visit? Any new allergies or adverse reactions No No No Had a fall/change in ADL's that may No No No increase risk of falls Signs or symptoms of abuse and/or No No No neglect since last visit Have you been in the hospital since your No No No last visit? Has dressing in place as prescribed Yes Yes Yes Has compression in place as prescribed No N/A N/A Has offloadiing in place as prescribed No Yes Yes Experienced any changes in pain level or No No No management Left Footwear Regular Shoe Slipper Right Footwear Regular Shoe Slipper Pain Scale: 0-10 Numeric Is Patient Pain Free? Yes Yes 09/26/21 11:52 WC - Today's Visit Information Type of service Follow-up Visit (Physician/DISTANCE LEARNING UNIT LEADER ) Arrival Mode Stretcher Transfer Assistance Doug Lift Transfer Assist (Other) Patient Identification Verified (Name & Yes ) Patient Requires Transmission-Based No Precautions Safety Precautions Height and Weight Body Mass Index (BMI) 62.1 BMI Classification Obese Vital Signs Temperature (97.8 F-99.1 F) 97.1 F L Temperature Source Temporal Pulse Rate (60-100) 88 Pulse Location Monitor Respiratory Rate (12-18) 20 H Respiratory rate source Observation Blood Pressure (90/60-120/80) 132/74 H Blood Pressure Mean (mm Hg) 93 Source Monitor Position Blood Pressure Location History Since Last Visit- (Skip if this is Patient's initial visit) Have you changed medications since your No last visit? Any new allergies or adverse reactions No Had a fall/change in ADL's that may increase risk of falls Signs or symptoms of abuse and/or No neglect since last visit Have you been in the hospital since your No last visit? Has dressing in place as prescribed Yes Has compression in place as prescribed No Has offloadiing in place as prescribed Yes Experienced any changes in pain level or No management Left Footwear Right Footwear Pain Scale: 0-10 Numeric Is Patient Pain Free? Yes WC - Nurse 1 - General Ulcer Measurement Start: 08/29/21 11:00 Freq: Status: Active Protocol: Activity Type Activity Date Activity User E-Sign Co-Sign Detail Recorded Client Recorded Date Recorded By Document 08/29/21 11:00 ML [id number] 08/29/21 11:11 ML Document 09/12/21 11:15 DL [id number] 09/12/21 11:17 DL Edit Result 09/12/21 11:15 DL (1) [id number] 09/12/21 11:19 DL Document 09/19/21 11:33 AK [id number] 09/19/21 11:37 AK Document 09/26/21 11:52 DL [id number] 09/26/21 11:54 DL (1) 6. R posterior labia - Undermining/Tunneling Starts (O'clock) => 12 - Undermining/Tunneling Ends (O'clock) => 6 - Maximum Distance #2 (cm) => 4.8 08/29/21 09/12/21 09/19/21 11:00 11:15 11:33 Wound Center Nurse 1 6. R posterior labia -Combined with other wound No -Current Size (cm) - Length 2.5 2 2 -Current Size (cm) - Width 4.3 3 3.5 -Current Size (cm) - Depth 3 2.8 0.2 -Total Square Cm 10.75 6 7.0 -Photo Taken No No -Epithelialization None Present -Tunneling Yes -Tunneling Position (O'clock) 11 -Tunneling Distance (cm) 3.5 -Tunneling Position #2 (O'clock) 1 -Undermining/Tunneling Yes No -Undermining/Tunneling Starts (O'clock 1 12 ) -Undermining/Tunneling Ends (O'clock) 3 6 -Maximum Distance (cm) 5.2 -Maximum Distance #2 (cm) 4.8 -Circular Undermining No -Exudate Amt Medium Medium -Exudate Type Serous Serosanguineous Serosanguineous -Wound Margin Distinct, Distinct, Distinct, Outline Outline Outline Attached Attached Attached -Granulation Amt Medium (34-66%) Large (67-100%) Large (67-100%) -Granulation Quality Hyper- Red Red granulation -Slough/Fibrin Yes Yes -Necrosis Amt Medium (34-66%) None Present (0 Small (1-33%) %) -Necrotic Tissue Type Adherent Slough Adherent Slough -Structure Exposed N/A None/Limited to Skin Breakdown -Texture (Janene-wound Skin Appearance) Assessed Scarring No Abnormality, Assessed -Moisture (Janene-wound Skin Appearance) Assessed No Abnormality No Abnormality, Assessed -Color (Janene-wound Skin Appearance) Assessed No Abnormality No Abnormality, Assessed -Temperature (Janene-wound Skin No Abnormality No Abnormality Appearance) (Pt Warm) (Pt Warm) -Tenderness on Palpation (Janene-wound No Yes Skin Appearance) -Ulcer Cleansing Soap and Water Soap and Water Soap and Water -Foul Odor after Cleansing No No -Anesthetic Used 5% Lidocaine 4% Lidocaine 4% Lidocaine Gel Solution Solution 09/26/21 11:52 Wound Center Nurse 1 6. R posterior labia -Combined with other wound -Current Size (cm) - Length 2 -Current Size (cm) - Width 3 -Current Size (cm) - Depth 2.3 -Total Square Cm 6 -Photo Taken No -Epithelialization -Tunneling -Tunneling Position (O'clock) -Tunneling Distance (cm) -Tunneling Position #2 (O'clock) -Undermining/Tunneling -Undermining/Tunneling Starts (O'clock 11 ) -Undermining/Tunneling Ends (O'clock) 1 -Maximum Distance (cm) 5 -Maximum Distance #2 (cm) -Circular Undermining -Exudate Amt Medium -Exudate Type Serosanguineous -Wound Margin Distinct, Outline Attached -Granulation Amt Large (67-100%) -Granulation Quality Red -Slough/Fibrin -Necrosis Amt Small (1-33%) -Necrotic Tissue Type Adherent Slough -Structure Exposed N/A -Texture (Janene-wound Skin Appearance) Scarring -Moisture (Janene-wound Skin Appearance) No Abnormality -Color (Janene-wound Skin Appearance) No Abnormality -Temperature (Janene-wound Skin No Abnormality Appearance) (Pt Warm) -Tenderness on Palpation (Janene-wound No Skin Appearance) -Ulcer Cleansing Soap and Water -Foul Odor after Cleansing No -Anesthetic Used 4% Lidocaine Solution WC - Nurse 2 - General Ulcer CM Notes Start: 08/29/21 11:00 Freq: Status: Active Protocol: Activity Type Activity Date Activity User E-Sign Co-Sign Detail Recorded Client Recorded Date Recorded By Document 08/29/21 11:30 MW [id number] 08/29/21 11:49 MW Document 09/12/21 11:50 MW [id number] 09/12/21 12:04 MW Document 09/19/21 12:12 MW [id number] 09/19/21 12:30 MW Document 09/26/21 12:08 MW [id number] 09/26/21 12:21 MW 08/29/21 09/12/21 09/19/21 11:30 11:50 12:12 Wound Center Nurse 2 6. R posterior labia -Time 11:31 11:50 12:12 -Correct Patient Yes Yes Yes -Correct Side, Site, Position Yes Yes Yes -Correct Procedure Yes Yes Yes -Procedure Performed Yes Yes Yes -Type of Procedure Debridement Debridement Debridement -Clinical Debridement Subcutaneous Subcutaneous Subcutaneous -Tissue Removed Subcutaneous Subcutaneous Subcutaneous -Post Debridement (cm) - Length 4.4 3.0 2.3 -Post Debridement (cm) - Width 2.5 3.0 3.8 -Post Debridement (cm) - Depth 3.9 2.7 3.8 -Total Square (Post) (cm) 11.00 9.00 8.74 -Area of Debridement (cm) - Length 4.4 3.0 2.3 -Area of Debridement (cm) - Width 2.5 3.0 3.8 -Total Square (Area) (cm) 11.00 9.00 8.74 -Tunneling Yes No No -Tunneling Position (O'clock) 1 -Tunneling Distance (cm) 6.4 -Undermining/Tunneling No No Yes -Undermining/Tunneling Starts (O'clock 12 12 ) -Undermining/Tunneling Ends (O'clock) 1 1 -Maximum Distance (cm) 4.3 5.4 -Circular Undermining No No No -Wound/Ulcer Outcome Not Healed Not Healed Not Healed -Ulcer Cleansing Rinsed/ Rinsed/ Rinsed/ Irrigated with Irrigated with Irrigated with Saline Saline Saline -Foul Odor after Cleansing No No No -Bioengineered Tissue No No No -Type of Bioengineered Tissue -Expiration Date -Product Lot Number -Percent Used -Lot number of Saline Used -Bleeding Controlled with Pressure Pressure Pressure -Offloading No No No -Treatment Response Procedure Procedure Procedure Tolerated Well Tolerated Well Tolerated Well -Debridement - Subq, 1st 20sq cm Yes Yes Yes -Apply Skin Sub - 1st 25 sq cm - Legs -Epifix Mesh (per sq cm) Pain Scale: 0-10 Numeric Is Patient Pain Free? Yes Yes Yes 09/26/21 12:08 Wound Center Nurse 2 6. R posterior labia -Time 12:08 -Correct Patient Yes -Correct Side, Site, Position Yes -Correct Procedure Yes -Procedure Performed Yes -Type of Procedure Debridement -Clinical Debridement Subcutaneous -Tissue Removed Subcutaneous -Post Debridement (cm) - Length 3.0 -Post Debridement (cm) - Width 2.8 -Post Debridement (cm) - Depth 3.3 -Total Square (Post) (cm) 8.40 -Area of Debridement (cm) - Length 3.0 -Area of Debridement (cm) - Width 2.8 -Total Square (Area) (cm) 8.40 -Tunneling No -Tunneling Position (O'clock) -Tunneling Distance (cm) -Undermining/Tunneling Yes -Undermining/Tunneling Starts (O'clock 1 ) -Undermining/Tunneling Ends (O'clock) 2 -Maximum Distance (cm) 5.8 -Circular Undermining No -Wound/Ulcer Outcome Not Healed -Ulcer Cleansing Rinsed/ Irrigated with Saline -Foul Odor after Cleansing No -Bioengineered Tissue Yes -Type of Bioengineered Tissue Epifix Mesh -Expiration Date 05/29/26 -Product Lot Number [id number] -Percent Used 100 -Lot number of Saline Used [id number] -Bleeding Controlled with Pressure -Offloading No -Treatment Response Procedure Tolerated Well -Debridement - Subq, 1st 20sq cm No -Apply Skin Sub - 1st 25 sq cm - Legs 1 -Epifix Mesh (per sq cm) 11 Pain Scale: 0-10 Numeric Is Patient Pain Free? Yes WC - Nurse 3 - General Ulcer D/C NN Start: 08/29/21 11:00 Freq: Status: Active Protocol: Activity Type Activity Date Activity User E-Sign Co-Sign Detail Recorded Client Recorded Date Recorded By Document 08/29/21 12:35 RB [id number] 08/29/21 12:37 RB Document 09/12/21 12:44 RB [id number] 09/12/21 12:46 RB Document 09/19/21 13:13 RB [id number] 09/19/21 13:14 RB Edit Result 09/19/21 13:13 RB (1) [id number] 09/21/21 14:28 PL Document 09/26/21 13:00 RB [id number] 09/26/21 13:00 RB (1) 6. R posterior labia - NPWT Application Charge NPWT </= 50 sq cm => NPWT & Debridement ($) => (nc) 08/29/21 09/12/21 09/19/21 12:35 12:44 13:13 Wound Care Nurse 3 6. R posterior labia -Ulcer Cleansing Wound Cleanser Rinsed/ Wound Cleanser Irrigated with Saline -Negative Pressure Wound Therapy Continue Continue Continue -Setting (mmHg) 150 150 150 -Negative Pressure is Continuous Continuous Continuous -Other Dressing santyl -NPWT Application Charge NPWT </= 50 sq NPWT </= 50 sq NPWT & cm ($) cm ($) Debridement (nc ) Janene-Wound Care Barrier Treatment Response Procedure Procedure Procedure Tolerated Well Tolerated Well Tolerated Well Pain Scale: 0-10 Numeric Is Patient Pain Free? Yes Yes WC - Visit Discharge Discharge Condition Stable Stable Stable Ambulatory Status Wheelchair Wheelchair Wheelchair Transportation Private Auto Private Auto Private Auto Medication Reconcilliation completed & No No No provided to patient/care provider Clinical Summary of Care Provided Yes Yes Yes 09/26/21 13:00 Wound Care Nurse 3 6. R posterior labia -Ulcer Cleansing -Negative Pressure Wound Therapy Start -Setting (mmHg) 125 -Negative Pressure is Continuous -Other Dressing -NPWT Application Charge NPWT </= 50 sq cm ($) Janene-Wound Care Treatment Response Procedure Tolerated Well Pain Scale: 0-10 Numeric Is Patient Pain Free? Yes WC - Visit Discharge Discharge Condition Stable Ambulatory Status Wheelchair Transportation Private Auto Medication Reconcilliation completed & No provided to patient/care provider Clinical Summary of Care Provided Yes Assessment/Plan Assessment/Plan (1) Pressure ulcer of right buttock, stage 3: CODE(S): L89.313 - Pressure ulcer of right buttock, stage 3 (2) Multiple sclerosis: CODE(S): G35 - Multiple sclerosis (3) Psoriasis: CODE(S): L40.9 - Psoriasis, unspecified PLAN: Zoey's ulcer was evaluated and debrided today at the wound healing center. Epifix #1 a 4 x 4 mesh was applied to the base of the ulcer and rehydrated with saline and covered with wound veil that was secured with steri-strips. Wound vac reapplied today for heavy drainage and large defect of tissue with undermining. If vac loses seal and they are unable to get it to seal then will have her dress ulcer with Santyl to the wound bed, cover with Aquacel Ag and cover with moisture barrier dressing with cushion such as mepilix with border or optifoam with border with changes daily and as needed for soiling. She is currently on Augmentin and ciprofloxacin for treatment of infection of her ulcer. Due to the poor progression of her ulcer, she would benefit from application of a skin substitute such as Epifix in order to heal her ulcer and hopefully avoid need for surgical treatment and closure with a skin flap or graft. Labs reveal adequate nutrition and otherwise were not significantly abnormal. Encouraged increased protein intake to support nutrition and optimize healing. Encouraged offloading of her right buttock/labia as much as possible in order to heal the ulcer. She and her were advised to call with any concerns or increased drainage, erythema or odor. She will return in 1 week for wound care.
== END 2021-09-28 23:59 ==
LOC: WC 11:30
PROVIDERS: PCP Family Medicine; Visit Provider Family Medicine
DX: L89.313 Pressure ulcer of right buttock, stage 3 (principal); Z99.3 Dependence on wheelchair; Z74.01 Bed confinement status; G35 Multiple sclerosis; E66.01 Morbid (severe) obesity due to excess calories; Z68.44 Body mass index [BMI] 60.0-69.9, adult; L40.9 Psoriasis, unspecified; N89.8 Other specified noninflammatory disorders of vagina; B96.20 Unspecified Escherichia coli [E. coli] as the cause of diseases classified elsewhere; B96.89 Other specified bacterial agents as the cause of diseases classified elsewhere; B95.7 Other staphylococcus as the cause of diseases classified elsewhere
CPT/HCPCS: 11042; 15271; 87070; 87075; 87077; 87186; 87205; 97605; Q4186

== ENCOUNTER 2021-10-17 11:30 | Outpatient (RCR) | payer MEDICARE, SELFPAY ==
[2021-09-29 00:10] VITALS: BP 132/74; PULSE 88; RESP 20; TEMP 36.2; BMI 62.1
[2021-10-03 11:30] VITALS: BP 120/80; PULSE 86; RESP 16; TEMP 36; BMI 62.1
--- NOTE | 2021-10-03 12:55 | WC ---
Vac placed on hold and [facility] notified. Spoke to Grisel Erazo.
--- NOTE | 2021-10-03 13:15 | PN.PCM_ITS ---
History of Present Illness Date of Service: 10/03/21 Chief Complaint: Right posterior labial pressure sore, Stage III History of Wound: Zoey is a 66 yo female that is bed bound/wheelchair bound from complications of MS that presents to the wound healing center today for evaluation and treatment of a pressure ulcer of her right posterior labia that has been present since January 2021. She had been doing well but had a pressure ulcer of her right posterior labia develop in January 2021 after an abrasion from transferring after a shower. Her began applying Santyl and Aquacel Ag for several weeks and then Aquacel Ag alone for moderate drainage to the wound at that time and it was nearly healed until several weeks ago she was at a bridal shower and was out of bed for a longer period of time and the following day there was significant bruising to the area and it began to become larger and drain more. For the last 2 weeks he had returned to applying Santyl and Aquacel Extra to the wound but was not noticing significant improvement and called to be seen at the wound healing center. Her helps with her care and he reports that she has significant vaginal drainage for the last several months since she has been being treated with Estradiol for vaginal itching. She uses a tablet vaginally 3 times/week and her notes that there is copious clear-king vaginal discharge. She has a suprapubic catheter in place so it is not likely that it is urine that is leaking. He finds it very difficult to keep the wound dry due to this drainage. 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 She currently is not taking any antibiotics and she has not undergone any wound cultures of this ulcer. She denies fever, chills, nausea, vomiting or other systemic signs of infection. There is moderate to heavy drainage from the ulcer and they have been using Mepilix with border and Aquacel Ag and Santyl for the last 2 weeks. 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 Progress of Wound: Zoey's ulcer is somewhat improved. She is tolerating treatment with wound vac with some improvement. She no longer has necrotic tissue or slough at the base of the wound. Drainage is still heavy at times. She has had improvement in vaginal discharge since discontinuing the use of estradiol. Wound culture was positive last week for E. coli, Corynebacterium, Staph epidermidis and anaerobic bacteria. She was started on Augmentin and Ciprofloxacin. Objective Data Objective Data Vital Signs: Vital Signs Temp Pulse Resp BP 96.8 F L 86 16 120/80 10/03/21 11:30 10/03/21 11:30 10/03/21 11:30 10/03/21 11:30 Oxygen Delivery Method Room Air Weight: 180 kg Body Mass Index (BMI) 62.1 Physical Exam Const alert, oriented x3 and no apparent distress General Appearance: cooperative and comfortable Nutritional Appearance: morbidly obese HEENT normocephalic and head/scalp atraumatic Resp normal respiratory effort Effort and Inspection: able to speak in complete sentences Skin General Skin Exam: erythema and dermatitis Wounds: wounds noted Wound Narrative: as in clinical panel Psych thought process normal, cooperative, affect normal and speech normal Debridement Note Debridement Note Wound debrided: right posterior labia Laterality: Right Wound Grade/Stage: Stage III Type of Debridement: Excisional debridement Anesthesia Used: 4% Lidocaine Solution Depth: Down to and including healthy tissue and in the subcutaneous layer Percentage of wound debrided: 100 Instrument Used: 5mm curette Tissue Removed: Yellow slough, devitalized tissue Severity: Fat Layer Exposed Amount of bleeding with debridement: Mild Bleeding Controlled with: Compression and gauze Patient tolerated procedure: Patient tolerated procedure well Post-Debridement Measurements and Additional Note: Post-Debridement Measurements/Treatment - Nurse 1 - General Ulcer Assessment Start: 10/03/21 11:23 Freq: Status: Active Protocol: LOUISE.LOWEXT Activity Type Activity Date Activity User E-Sign Co-Sign Detail Recorded Client Recorded Date Recorded By Document 10/03/21 11:30 [facility] [id number] 10/03/21 11:40 [facility] 10/03/21 11:30 - Today's Visit Information Type of service Follow-up Visit (Physician/OUTPATIENT CASE MANAGER ) Arrival Mode Wheelchair Transfer Assistance Doug Lift Accompanied by Patient Identification Verified (Name & Yes ) Patient Requires Transmission-Based No Precautions Height and Weight Body Mass Index (BMI) 62.1 BMI Classification Obese Vital Signs Temperature (97.8 F-99.1 F) 96.8 F L Temperature Source Temporal Pulse Rate (60-100) 86 Pulse Location Monitor Respiratory Rate (12-18) 16 Respiratory rate source Observation Oxygen Delivery Method Room Air Blood Pressure (90/60-120/80) 120/80 Blood Pressure Mean (mm Hg) 93 Source Monitor Position Sitting Blood Pressure Location Left Arm History Since Last Visit- (Skip if this is Patient's initial visit) Have you changed medications since your No last visit? Any new allergies or adverse reactions No Had a fall/change in ADL's that may No increase risk of falls Signs or symptoms of abuse and/or No neglect since last visit Have you been in the hospital since your No last visit? Has dressing in place as prescribed Yes Has compression in place as prescribed N/A Has offloadiing in place as prescribed N/A Experienced any changes in pain level or No management Left Footwear Regular Shoe Right Footwear Regular Shoe Pain Scale: 0-10 Numeric Is Patient Pain Free? Yes WC - Nurse 1 - General Ulcer Measurement Start: 10/03/21 11:23 Freq: Status: Active Protocol: Activity Type Activity Date Activity User E-Sign Co-Sign Detail Recorded Client Recorded Date Recorded By Document 10/03/21 11:30 [facility] [id number] 10/03/21 11:40 [facility] 10/03/21 11:30 Wound Center Nurse 1 6. R posterior labia -Combined with other wound No -Current Size (cm) - Length 2.8 -Current Size (cm) - Width 3.4 -Current Size (cm) - Depth 2.3 -Total Square Cm 9.52 -Photo Taken No -Epithelialization None Present -Tunneling Yes -Tunneling Position (O'clock) 1 -Tunneling Distance (cm) 4.5 -Undermining/Tunneling No -Circular Undermining No -Exudate Amt Large -Exudate Type Serosanguineous -Wound Margin Distinct, Outline Attached -Granulation Amt Large (67-100%) -Granulation Quality Red -Slough/Fibrin Yes -Necrosis Amt Small (1-33%) -Necrotic Tissue Type Adherent Slough -Texture (Janene-wound Skin Appearance) Assessed, Scarring -Moisture (Janene-wound Skin Appearance) Assessed -Color (Janene-wound Skin Appearance) Assessed -Temperature (Janene-wound Skin No Abnormality Appearance) (Pt Warm) -Tenderness on Palpation (Janene-wound Yes Skin Appearance) -Ulcer Cleansing Soap and Water -Foul Odor after Cleansing No -Anesthetic Used 4% Lidocaine Solution - Nurse 2 - General Ulcer CM Notes Start: 10/03/21 11:23 Freq: Status: Active Protocol: Activity Type Activity Date Activity User E-Sign Co-Sign Detail Recorded Client Recorded Date Recorded By Document 10/03/21 11:48 [id number] 10/03/21 11:59 10/03/21 11:48 Wound Center Nurse 2 -Correct Patient Yes -Correct Side, Site, Position Yes -Correct Procedure Yes -Procedure Performed Yes -Type of Procedure Debridement -Clinical Debridement Subcutaneous -Tissue Removed Subcutaneous -Post Debridement (cm) - Length 3 -Post Debridement (cm) - Width 3 -Post Debridement (cm) - Depth 2.5 -Total Square (Post) (cm) 9 -Area of Debridement (cm) - Length 3 -Area of Debridement (cm) - Width 3 -Total Square (Area) (cm) 9 -Tunneling No -Undermining/Tunneling Yes -Undermining/Tunneling Starts (O'clock 1 ) -Undermining/Tunneling Ends (O'clock) 2 -Maximum Distance (cm) 5 -Circular Undermining No -Wound/Ulcer Outcome Not Healed -Ulcer Cleansing Rinsed/ Irrigated with Saline -Foul Odor after Cleansing No -Bioengineered Tissue Yes -Type of Bioengineered Tissue Epifix Mesh -Expiration Date 05/29/26 -Product Lot Number [id number] -Percent Used 0 -Lot number of Saline Used [id number] -Bleeding Controlled with Pressure -Offloading No -Treatment Response Procedure Tolerated Well -Debridement - Subq, 1st 20sq cm No -Apply Skin Sub - 1st 25 sq cm - Legs 1 -Epifix Mesh (per sq cm) 11 Pain Scale: 0-10 Numeric Is Patient Pain Free? Yes - Nurse 3 - General Ulcer D/C NN Start: 10/03/21 11:23 Freq: Status: Active Protocol: Activity Type Activity Date Activity User E-Sign Co-Sign Detail Recorded Client Recorded Date Recorded By Document 10/03/21 12:12 [facility] [id number] 10/03/21 12:13 [facility] 10/03/21 12:12 Wound Care Nurse 3 6. R posterior labia -Primary Dressing Applied Aquacel Extra, Other -Other Dressing epimesh -Primary Dressing Covered/Secured with Dry Gauze, Secured with Tape,Other -Other Covering ezequiel, harjit per rb rn -Aquacel Extra 1 Treatment Response Procedure Tolerated Well Pain Scale: 0-10 Numeric Is Patient Pain Free? Yes WC - Visit Discharge Discharge Condition Stable Ambulatory Status Wheelchair Accompanied by Facility Type Home Health Assessment/Plan Assessment/Plan (1) Pressure ulcer of right buttock, stage 3: CODE(S): L89.313 - Pressure ulcer of right buttock, stage 3 (2) Candidal skin infection: CODE(S): B37.2 - Candidiasis of skin and nail (3) Multiple sclerosis: CODE(S): G35 - Multiple sclerosis (4) Psoriasis: CODE(S): L40.9 - Psoriasis, unspecified PLAN: Ezekiels ulcer was evaluated and debrided today at the wound healing center. Epifix #2 a 4 x 4 mesh was applied to the base of the ulcer and rehydrated with saline and covered with wound veil that was secured with steri-strips. Will hold wound vac and have them use Aquacel Extra over the wound veil, packed into the wound with changes Wednesday and Wednesday and as needed for soiling. They were instructed not to disrupt the wound veil and steristrips. Will send RX for Diflucan for candidal dermatitis under left breast. She is currently on Augmentin and ciprofloxacin for treatment of infection of her ulcer. She will complete Augmentin this week and will continue ciprofloxacin. Due to the poor progression of her ulcer, she would benefit from application of a skin substitute such as Epifix in order to heal her ulcer and hopefully avoid need for surgical treatment and closure with a skin flap or graft. Labs reveal adequate nutrition and otherwise were not significantly abnormal. Encouraged increased protein intake to support nutrition and optimize healing. Encouraged offloading of her right buttock/labia as much as possible in order to heal the ulcer. She and her were advised to call with any concerns or increased drainage, erythema or odor. She will return in 1 week for wound care.
--- NOTE | 2021-10-06 08:09 | WC ---
Notified Grisel Erazo with [employer] to have patient's vac placed on hold starting with 10/03/21 date.
[2021-10-10 11:09] VITALS: BP 130/88; PULSE 95; RESP 20; TEMP 35.6; BMI 62.1
--- NOTE | 2021-10-10 13:06 | PN.PCM_ITS ---
History of Present Illness Date of Service: 10/10/21 Chief Complaint: Right posterior labial pressure sore, Stage III History of Wound: Zoey is a 66 yo female that is bed bound/wheelchair bound from complications of MS that presents to the wound healing center today for evaluation and treatment of a pressure ulcer of her right posterior labia that has been present since January 2021. She had been doing well but had a pressure ulcer of her right posterior labia develop in January 2021 after an abrasion from transferring after a shower. Her began applying Santyl and Aquacel Ag for several weeks and then Aquacel Ag alone for moderate drainage to the wound at that time and it was nearly healed until several weeks ago she was at a bridal shower and was out of bed for a longer period of time and the following day there was significant bruising to the area and it began to become larger and drain more. For the last 2 weeks he had returned to applying Santyl and Aquacel Extra to the wound but was not noticing significant improvement and called to be seen at the wound healing center. Her helps with her care and he reports that she has significant vaginal drainage for the last several months since she has been being treated with Estradiol for vaginal itching. She uses a tablet vaginally 3 times/week and her notes that there is copious clear-king vaginal discharge. She has a suprapubic catheter in place so it is not likely that it is urine that is leaking. He finds it very difficult to keep the wound dry due to this drainage. She has an upcoming appointment with her sales management trainee on 07/16/2021 for recheck. She currently is not taking any antibiotics and she has not undergone any wound cultures of this ulcer. She denies fever, chills, nausea, vomiting or other systemic signs of infection. There is moderate to heavy drainage from the ulcer and they have been using Mepilix with border and Aquacel Ag and Santyl for the last 2 weeks. 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 Progress of Wound: Zoey's ulcer is somewhat improved. She had a large amount of drainage this week without the wound vac. She no longer has necrotic tissue or slough at the base of the wound. Drainage is still heavy at times. She has had improvement in vaginal discharge since discontinuing the use of estradiol. Wound culture was positive last week for E. coli, Corynebacterium, Staph epidermidis and anaerobic bacteria. She was started on Augmentin and Ciprofloxacin. She completed Augmentin and continues Ciprofloxacin. Objective Data Objective Data Vital Signs: Vital Signs Temp Pulse Resp BP 96.1 F L 95 20 H 130/88 H 10/10/21 11:09 10/10/21 11:09 10/10/21 11:09 10/10/21 11:09 Oxygen Delivery Method Room Air Weight: 180 kg Body Mass Index (BMI) 62.1 Physical Exam Const alert, oriented x3 and no apparent distress General Appearance: cooperative and comfortable Nutritional Appearance: morbidly obese HEENT normocephalic and head/scalp atraumatic Resp normal respiratory effort Effort and Inspection: able to speak in complete sentences Skin General Skin Exam: erythema and dermatitis Wounds: wounds noted Wound Narrative: as in clinical panel Psych thought process normal, cooperative, affect normal and speech normal Debridement Note Debridement Note Wound debrided: right posterior labia ulcer Laterality: Right Wound Grade/Stage: Stage III Type of Debridement: Excisional debridement Anesthesia Used: 4% Lidocaine Solution and - (2% lidocaine) Depth: Down to and including healthy tissue, in the subcutaneous layer and to muscle Percentage of wound debrided: 100 Instrument Used: #15 blade and Forceps Tissue Removed: Yellow slough, devitalized tissue Severity: Necrosis of Muscle Amount of bleeding with debridement: Mild Bleeding Controlled with: Compression and gauze Patient tolerated procedure: Patient tolerated procedure well Debridement Free Text: Skin anesthetized above the tunneled area and 15 blade scalple used to incise the skin, subcutaneous fat and tissue to expose the tunneled area to be able to apply wound vac directly to the wound bed. Epifix mesh applied to the wound bed and wound veil used to cover and secured with steri-strips. Post-Debridement Measurements and Additional Note: Post-Debridement Measurements/Treatment LOUISE - Nurse 1 - General Ulcer Assessment Start: 10/03/21 11:23 Freq: Status: Active Protocol: LINK Activity Type Activity Date Activity User E-Sign Co-Sign Detail Recorded Client Recorded Date Recorded By Document 10/03/21 11:30 [facility] [id number] 10/03/21 11:40 [facility] Document 10/10/21 11:09 DL [id number] 10/10/21 11:20 DL 10/03/21 10/10/21 11:30 11:09 - Today's Visit Information Type of service Follow-up Visit Follow-up Visit (Physician/SPEECH COMMUNICATION PROFESSOR (Physician/SPEECH COMMUNICATION PROFESSOR ) ) Arrival Mode Wheelchair Wheelchair Transfer Assistance Doug Lift Doug Lift Accompanied by Patient Identification Verified (Name & Yes Yes ) Patient Requires Transmission-Based No No Precautions Height and Weight Body Mass Index (BMI) 62.1 62.1 BMI Classification Obese Obese Vital Signs Temperature (97.8 F-99.1 F) 96.8 F L 96.1 F L Temperature Source Temporal Temporal Pulse Rate (60-100) 86 95 Pulse Location Monitor Monitor Respiratory Rate (12-18) 16 20 H Respiratory rate source Observation Observation Oxygen Delivery Method Room Air Blood Pressure (90/60-120/80) 120/80 130/88 H Blood Pressure Mean (mm Hg) 93 102 Source Monitor Monitor Position Sitting Blood Pressure Location Left Arm History Since Last Visit- (Skip if this is Patient's initial visit) Have you changed medications since your No No last visit? Any new allergies or adverse reactions No No Had a fall/change in ADL's that may No No increase risk of falls Signs or symptoms of abuse and/or No No neglect since last visit Have you been in the hospital since your No No last visit? Has dressing in place as prescribed Yes Yes Has compression in place as prescribed N/A N/A Has offloadiing in place as prescribed N/A Yes Experienced any changes in pain level or No No management Left Footwear Regular Shoe Right Footwear Regular Shoe Pain Scale: 0-10 Numeric Is Patient Pain Free? Yes Yes - Nurse 1 - General Ulcer Measurement Start: 10/03/21 11:23 Freq: Status: Active Protocol: Activity Type Activity Date Activity User E-Sign Co-Sign Detail Recorded Client Recorded Date Recorded By Document 10/03/21 11:30 [facility] [id number] 10/03/21 11:40 [facility] Document 10/10/21 11:09 DL [id number] 10/10/21 11:20 DL 10/03/21 10/10/21 11:30 11:09 Wound Center Nurse 1 6. R posterior labia -Combined with other wound No -Current Size (cm) - Length 2.8 2.1 -Current Size (cm) - Width 3.4 3.8 -Current Size (cm) - Depth 2.3 2.8 -Total Square Cm 9.52 7.98 -Photo Taken No No -Epithelialization None Present -Tunneling Yes -Tunneling Position (O'clock) 1 -Tunneling Distance (cm) 4.5 -Undermining/Tunneling No -Undermining/Tunneling Starts (O'clock 1 ) -Undermining/Tunneling Ends (O'clock) 2 -Maximum Distance (cm) 5.8 -Circular Undermining No -Exudate Amt Large Medium -Exudate Type Serosanguineous Serosanguineous -Wound Margin Distinct, Distinct, Outline Outline Attached Attached -Granulation Amt Large (67-100%) Large (67-100%) -Granulation Quality Red Red -Slough/Fibrin Yes -Necrosis Amt Small (1-33%) Small (1-33%) -Necrotic Tissue Type Adherent Slough Adherent Slough -Structure Exposed N/A -Texture (Janene-wound Skin Appearance) Assessed, Scarring Scarring -Moisture (Janene-wound Skin Appearance) Assessed Dry/Scaly -Color (Janene-wound Skin Appearance) Assessed No Abnormality -Temperature (Janene-wound Skin No Abnormality No Abnormality Appearance) (Pt Warm) (Pt Warm) -Tenderness on Palpation (Janene-wound Yes No Skin Appearance) -Ulcer Cleansing Soap and Water Soap and Water -Foul Odor after Cleansing No No -Anesthetic Used 4% Lidocaine 4% Lidocaine Solution Solution WC - Nurse 2 - General Ulcer CM Notes Start: 10/03/21 11:23 Freq: Status: Active Protocol: Activity Type Activity Date Activity User E-Sign Co-Sign Detail Recorded Client Recorded Date Recorded By Document 10/03/21 11:48 JF [id number] 10/03/21 11:59 JF Document 10/10/21 11:25 MW [id number] 10/10/21 12:16 MW 10/03/21 10/10/21 11:48 11:25 Wound Center Nurse 2 6. R posterior labia -Time 11:26 -Correct Patient Yes Yes -Correct Side, Site, Position Yes Yes -Correct Procedure Yes Yes -Procedure Performed Yes Yes -Type of Procedure Debridement Debridement -Clinical Debridement Subcutaneous Muscle / Fascia -Tissue Removed Subcutaneous Muscle,Fascia -Post Debridement (cm) - Length 3 7.0 -Post Debridement (cm) - Width 3 3.5 -Post Debridement (cm) - Depth 2.5 4.0 -Total Square (Post) (cm) 9 24.50 -Area of Debridement (cm) - Length 3 7.0 -Area of Debridement (cm) - Width 3 3.5 -Total Square (Area) (cm) 9 24.50 -Tunneling No No -Undermining/Tunneling Yes No -Undermining/Tunneling Starts (O'clock 1 ) -Undermining/Tunneling Ends (O'clock) 2 -Maximum Distance (cm) 5 -Circular Undermining No No -Wound/Ulcer Outcome Not Healed Not Healed -Ulcer Cleansing Rinsed/ Rinsed/ Irrigated with Irrigated with Saline Saline -Foul Odor after Cleansing No No -Bioengineered Tissue Yes Yes -Type of Bioengineered Tissue Epifix Mesh Epifix Mesh -Expiration Date 05/29/26 06/29/26 -Product Lot Number [id number] -Percent Used 0 100 -Lot number of Saline Used [id number] -Bleeding Controlled with Pressure Pressure -Offloading No No -Treatment Response Procedure Procedure Tolerated Well Tolerated Well -Debridement - Subq, 1st 20sq cm No -Debridement - Muscle / Fascia, 1st Yes 20sq cm -Debridement, Muscle/Fascia, ea addt'l 1 20sq cm or part thereof -Apply Skin Sub - 1st 25 sq cm - Legs 1 1 -Epifix Mesh (per sq cm) 11 11 Pain Scale: 0-10 Numeric Is Patient Pain Free? Yes Yes WC - Nurse 3 - General Ulcer D/C NN Start: 10/03/21 11:23 Freq: Status: Active Protocol: Activity Type Activity Date Activity User E-Sign Co-Sign Detail Recorded Client Recorded Date Recorded By Document 10/03/21 12:12 [facility] [id number] 10/03/21 12:13 BM Document 10/10/21 12:23 RB [id number] 10/10/21 12:25 RB 10/03/21 10/10/21 12:12 12:23 Wound Care Nurse 3 6. R posterior labia -Negative Pressure Wound Therapy Continue -Setting (mmHg) 150 -Negative Pressure is Continuous -Primary Dressing Applied Aquacel Extra, Other -Other Dressing epimesh -Primary Dressing Covered/Secured with Dry Gauze, Secured with Tape,Other -Other Covering harjit nieves per rb rn -NPWT Application Charge NPWT </= 50 sq cm ($) -Aquacel Extra 1 Janene-Wound Care Barrier Treatment Response Procedure Procedure Tolerated Well Tolerated Well Pain Scale: 0-10 Numeric Is Patient Pain Free? Yes Yes WC - Visit Discharge Discharge Condition Stable Stable Ambulatory Status Wheelchair Wheelchair Transportation Private Auto Accompanied by Medication Reconcilliation completed & No provided to patient/care provider Clinical Summary of Care Provided Yes Facility Type Home Health Assessment/Plan Assessment/Plan (1) Pressure ulcer of right buttock, stage 3: CODE(S): L89.313 - Pressure ulcer of right buttock, stage 3 (2) Candidal skin infection: CODE(S): B37.2 - Candidiasis of skin and nail (3) Multiple sclerosis: CODE(S): G35 - Multiple sclerosis (4) Psoriasis: CODE(S): L40.9 - Psoriasis, unspecified PLAN: Zoey's ulcer was evaluated and debrided today at the wound healing center. Excisional debridement to expose the wound bed further and extend the outer border of the ulcer performed as above. Epifix #3 a 4 x 4 mesh was applied to the base of the ulcer and rehydrated with saline and covered with wound veil that was secured with steri-strips. Will return to using wound vac and have this changed on Wednesday. They were instructed not to disrupt the wound veil and steristrips. She will continue ciprofloxacin. Due to the poor progression of her ulcer, she would benefit from application of a skin substitute such as Epifix in order to heal her ulcer and hopefully avoid need for surgical treatment and closure with a skin flap or graft. Labs reveal adequate nutrition and otherwise were not significantly abnormal. Encouraged increased protein intake to support nutrition and optimize healing. Encouraged offloading of her right buttock/labia as much as possible in order to heal the ulcer. She and her were advised to call with any concerns or increased drainage, erythema or odor. She will return in 1 week for wound care.
[2021-10-17 12:43] VITALS: BP 128/84; PULSE 63; RESP 16; TEMP 35.7; BMI 62.1
--- NOTE | 2021-10-17 14:53 | PN.PCM_ITS ---
History of Present Illness Date of Service: 10/17/21 Chief Complaint: Right posterior labial pressure sore, Stage III History of Wound: Zoey is a 66 yo female that is bed bound/wheelchair bound from complications of MS that presents to the wound healing center today for evaluation and treatment of a pressure ulcer of her right posterior labia that has been present since January 2021. She had been doing well but had a pressure ulcer of her right posterior labia develop in January 2021 after an abrasion from transferring after a shower. Her began applying Santyl and Aquacel Ag for several weeks and then Aquacel Ag alone for moderate drainage to the wound at that time and it was nearly healed until several weeks ago she was at a bridal shower and was out of bed for a longer period of time and the following day there was significant bruising to the area and it began to become larger and drain more. For the last 2 weeks he had returned to applying Santyl and Aquacel Extra to the wound but was not noticing significant improvement and called to be seen at the wound healing center. Her helps with her care and he reports that she has significant vaginal drainage for the last several months since she has been being treated with Estradiol for vaginal itching. She uses a tablet vaginally 3 times/week and her notes that there is copious clear-king vaginal discharge. She has a suprapubic catheter in place so it is not likely that it is urine that is leaking. He finds it very difficult to keep the wound dry due to this drainage. 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 She currently is not taking any antibiotics and she has not undergone any wound cultures of this ulcer. She denies fever, chills, nausea, vomiting or other systemic signs of infection. There is moderate to heavy drainage from the ulcer and they have been using Mepilix with border and Aquacel Ag and Santyl for the last 2 weeks. 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 Progress of Wound: Zoey's ulcer is somewhat improved. Excisional debridement performed last week has done well. She no longer has necrotic tissue or slough at the base of the wound. Drainage is still heavy at times. She has had improvement in vaginal discharge since discontinuing the use of estradiol. Wound culture was positive on September 19, 2021 for E. coli, Corynebacterium, Staph epidermidis and anaerobic bacteria. She was started on Augmentin and Ciprofloxacin. She completed Augmentin and continues Ciprofloxacin. Objective Data Objective Data Vital Signs: Vital Signs Temp Pulse Resp BP 96.2 F L 63 16 128/84 H 10/17/21 12:43 10/17/21 12:43 10/17/21 12:43 10/17/21 12:43 Oxygen Delivery Method Room Air Weight: 180 kg Body Mass Index (BMI) 62.1 Physical Exam Const alert, oriented x3 and no apparent distress General Appearance: cooperative and comfortable Nutritional Appearance: morbidly obese HEENT normocephalic and head/scalp atraumatic Resp normal respiratory effort Effort and Inspection: able to speak in complete sentences Skin General Skin Exam: erythema and dermatitis Wounds: wounds noted Wound Narrative: as in clinical panel Psych thought process normal, cooperative, affect normal and speech normal Debridement Note Debridement Note Wound debrided: right posterior labia/buttock Laterality: Right Wound Grade/Stage: Stage IV Type of Debridement: Excisional debridement Anesthesia Used: 4% Lidocaine Solution and - (lidocaine 2% 5 cc) Depth: Down to and including healthy tissue and in the subcutaneous layer Percentage of wound debrided: 100 Instrument Used: #15 blade and Forceps Tissue Removed: Yellow slough, devitalized tissue Severity: Fat Layer Exposed Amount of bleeding with debridement: Mild Bleeding Controlled with: Compression and gauze Patient tolerated procedure: Patient tolerated procedure well Post-Debridement Measurements and Additional Note: Post-Debridement Measurements/Treatment LOUISE - Nurse 1 - General Ulcer Assessment Start: 10/03/21 11:23 Freq: Status: Active Protocol: LINK Activity Type Activity Date Activity User E-Sign Co-Sign Detail Recorded Client Recorded Date Recorded By Document 10/03/21 11:30 BMF [id number] 10/03/21 11:40 BMF Document 10/10/21 11:09 DL [id number] 10/10/21 11:20 DL Document 10/17/21 12:43 ML [id number] 10/17/21 12:46 ML 1110/10/21 10/17/21 11:30 11:09 12:43 - Today's Visit Information Type of service Follow-up Visit Follow-up Visit Follow-up Visit (Physician/JEWELRY SALES COORDINATOR (Physician/JEWELRY SALES COORDINATOR (Physician/JEWELRY SALES COORDINATOR ) ) ) Arrival Mode Wheelchair Wheelchair Wheelchair Transfer Assistance Doug Lift Doug Lift Doug Lift Accompanied by Patient Identification Verified (Name & Yes Yes Yes ) Patient Requires Transmission-Based No No No Precautions Safety Precautions NA Height and Weight Body Mass Index (BMI) 62.1 62.1 62.1 BMI Classification Obese Obese Obese Vital Signs Temperature (97.8 F-99.1 F) 96.8 F L 96.1 F L 96.2 F L Temperature Source Temporal Temporal Temporal Pulse Rate (60-100) 86 95 63 Pulse Location Monitor Monitor Monitor Respiratory Rate (12-18) 16 20 H 16 Respiratory rate source Observation Observation Observation Oxygen Delivery Method Room Air Blood Pressure (90/60-120/80) 120/80 130/88 H 128/84 H Blood Pressure Mean (mm Hg) 93 102 98 Source Monitor Monitor Monitor Position Sitting Sitting Blood Pressure Location Left Arm Left Arm History Since Last Visit- (Skip if this is Patient's initial visit) Have you changed medications since your No No No last visit? Any new allergies or adverse reactions No No No Had a fall/change in ADL's that may No No No increase risk of falls Signs or symptoms of abuse and/or No No No neglect since last visit Have you been in the hospital since your No No No last visit? Has dressing in place as prescribed Yes Yes Yes Has compression in place as prescribed N/A N/A N/A Has offloadiing in place as prescribed N/A Yes Yes Experienced any changes in pain level or No No No management Left Footwear Regular Shoe Regular Shoe Right Footwear Regular Shoe Regular Shoe Pain Scale: 0-10 Numeric Is Patient Pain Free? Yes Yes - Nurse 1 - General Ulcer Measurement Start: 10/03/21 11:23 Freq: Status: Active Protocol: Activity Type Activity Date Activity User E-Sign Co-Sign Detail Recorded Client Recorded Date Recorded By Document 10/03/21 11:30 BMF [id number] 10/03/21 11:40 BMF Document 10/10/21 11:09 DL [id number] 11/12/21 11:20 DL Document 10/17/21 12:43 ML [id number] 10/17/21 12:46 ML 10/03/21 10/10/21 10/17/21 11:30 11:09 12:43 Wound Center Nurse 1 6. R posterior labia -Combined with other wound No -Current Size (cm) - Length 2.8 2.1 6 -Current Size (cm) - Width 3.4 3.8 1.5 -Current Size (cm) - Depth 2.3 2.8 3.2 -Total Square Cm 9.52 7.98 9.0 -Photo Taken No No -Epithelialization None Present -Tunneling Yes -Tunneling Position (O'clock) 1 -Tunneling Distance (cm) 4.5 -Undermining/Tunneling No Yes -Undermining/Tunneling Starts (O'clock 1 12 ) -Undermining/Tunneling Ends (O'clock) 2 2 -Maximum Distance (cm) 5.8 4 -Circular Undermining No -Exudate Amt Large Medium Medium -Exudate Type Serosanguineous Serosanguineous Serous -Wound Margin Distinct, Distinct, Distinct, Outline Outline Outline Attached Attached Attached -Granulation Amt Large (67-100%) Large (67-100%) Medium (34-66%) -Granulation Quality Red Red Red -Slough/Fibrin Yes Yes -Necrosis Amt Small (1-33%) Small (1-33%) Small (1-33%) -Necrotic Tissue Type Adherent Slough Adherent Slough Adherent Slough -Structure Exposed N/A -Texture (Janene-wound Skin Appearance) Assessed, Scarring Assessed Scarring -Moisture (Janene-wound Skin Appearance) Assessed Dry/Scaly Assessed -Color (Janene-wound Skin Appearance) Assessed No Abnormality Assessed -Temperature (Janene-wound Skin No Abnormality No Abnormality No Abnormality Appearance) (Pt Warm) (Pt Warm) (Pt Warm) -Tenderness on Palpation (Janene-wound Yes No Yes Skin Appearance) -Ulcer Cleansing Soap and Water Soap and Water Soap and Water -Foul Odor after Cleansing No No No -Anesthetic Used 4% Lidocaine 4% Lidocaine 5% Lidocaine Solution Solution Gel WC - Nurse 2 - General Ulcer CM Notes Start: 10/03/21 11:23 Freq: Status: Active Protocol: Activity Type Activity Date Activity User E-Sign Co-Sign Detail Recorded Client Recorded Date Recorded By Document 10/03/21 11:48 JF [id number] 10/03/21 11:59 JF Document 10/10/21 11:25 MW [id number] 10/10/21 12:16 MW Document 10/17/21 12:52 MW [id number] 10/17/21 13:30 MW 10/03/21 10/10/21 10/17/21 11:48 11:25 12:52 Wound Center Nurse 2 6. R posterior labia -Time 11:26 12:53 -Correct Patient Yes Yes Yes -Correct Side, Site, Position Yes Yes Yes -Correct Procedure Yes Yes Yes -Procedure Performed Yes Yes Yes -Type of Procedure Debridement Debridement Debridement -Clinical Debridement Subcutaneous Muscle / Fascia Subcutaneous -Tissue Removed Subcutaneous Muscle,Fascia Subcutaneous -Post Debridement (cm) - Length 3 7.0 6.5 -Post Debridement (cm) - Width 3 3.5 3.5 -Post Debridement (cm) - Depth 2.5 4.0 3.5 -Total Square (Post) (cm) 9 24.50 22.75 -Area of Debridement (cm) - Length 3 7.0 6.5 -Area of Debridement (cm) - Width 3 3.5 3.5 -Total Square (Area) (cm) 9 24.50 22.75 -Tunneling No No No -Undermining/Tunneling Yes No Yes -Undermining/Tunneling Starts (O'clock 1 1 ) -Undermining/Tunneling Ends (O'clock) 2 2 -Maximum Distance (cm) 5 4.0 -Circular Undermining No No No -Wound/Ulcer Outcome Not Healed Not Healed Not Healed -Ulcer Cleansing Rinsed/ Rinsed/ Rinsed/ Irrigated with Irrigated with Irrigated with Saline Saline Saline -Foul Odor after Cleansing No No No -Bioengineered Tissue Yes Yes No -Type of Bioengineered Tissue Epifix Mesh Epifix Mesh -Expiration Date 05/29/26 06/29/26 -Product Lot Number [id number] -Percent Used 0 100 -Lot number of Saline Used [id number] -Bleeding Controlled with Pressure Pressure Pressure -Offloading No No No -Treatment Response Procedure Procedure Procedure Tolerated Well Tolerated Well Tolerated Well -Debridement - Subq, 1st 20sq cm No Yes -Debridement, SubQ, ea addt'l 20sq cm 1 or part thereof -Debridement - Muscle / Fascia, 1st Yes 20sq cm -Debridement, Muscle/Fascia, ea addt'l 1 20sq cm or part thereof -Apply Skin Sub - 1st 25 sq cm - Legs 1 1 -Epifix Mesh (per sq cm) 11 11 Pain Scale: 0-10 Numeric Is Patient Pain Free? Yes Yes Yes WC - Nurse 3 - General Ulcer D/C NN Start: 10/03/21 11:23 Freq: Status: Active Protocol: Activity Type Activity Date Activity User E-Sign Co-Sign Detail Recorded Client Recorded Date Recorded By Document 10/03/21 12:12 BM [id number] 10/03/21 12:13 BMF Document 10/10/21 12:23 RB [id number] 10/10/21 12:25 RB Edit Result 10/10/21 12:23 RB (1) [id number] 10/10/21 13:51 PL Document 10/17/21 14:04 RB [id number] 10/17/21 14:05 RB (1) 6. R posterior labia - NPWT Application Charge NPWT </= 50 sq cm => NPWT & Debridement ($) => (nc) 10/03/21 10/10/21 10/17/21 12:12 12:23 14:04 Wound Care Nurse 3 6. R posterior labia -Ulcer Cleansing Wound Cleanser -Negative Pressure Wound Therapy Continue Start -Setting (mmHg) 150 150 -Negative Pressure is Continuous Continuous -Primary Dressing Applied Aquacel Extra, Other -Other Dressing epimesh -Primary Dressing Covered/Secured with Dry Gauze, Secured with Tape,Other -Other Covering abd, drsg per rb rn -NPWT Application Charge NPWT & NPWT </= 50 sq Debridement (nc cm ($) ) -Aquacel Extra 1 Janene-Wound Care Barrier Treatment Response Procedure Procedure Procedure Tolerated Well Tolerated Well Tolerated Well Pain Scale: 0-10 Numeric Is Patient Pain Free? Yes Yes Yes WC - Visit Discharge Discharge Condition Stable Stable Stable Ambulatory Status Wheelchair Wheelchair Wheelchair Transportation Private Auto Private Auto Accompanied by Medication Reconcilliation completed & No No provided to patient/care provider Clinical Summary of Care Provided Yes Yes Notes: doug lift Facility Type Home Health Assessment/Plan Assessment/Plan (1) Pressure ulcer of right buttock, stage 3: CODE(S): L89.313 - Pressure ulcer of right buttock, stage 3 (2) Candidal skin infection: CODE(S): B37.2 - Candidiasis of skin and nail (3) Multiple sclerosis: CODE(S): G35 - Multiple sclerosis (4) Psoriasis: CODE(S): L40.9 - Psoriasis, unspecified PLAN: Zoey's ulcer was evaluated and debrided today at the [facility]. Excisional debridement to expose the wound bed further and extend the outer border of the ulcer performed as above. Epifix held today. Wound vac reapplied at setting of 150 mmHg and will be changed 3 times/week until she is seen again. She will continue ciprofloxacin. Due to the poor progression of her ulcer, she would benefit from application of a skin substitute such as Epifix in order to heal her ulcer and hopefully avoid need for surgical treatment and closure with a skin flap or graft. Labs reveal adequate nutrition and otherwise were not significantly abnormal. Encouraged increased protein intake to support nutrition and optimize healing. Encouraged offloading of her right buttock/labia as much as possible in order to heal the ulcer. She and her were advised to call with any concerns or increased drainage, erythema or odor. She will return in 2 weeks for wound care.
== END 2021-10-28 23:59 ==
LOC: WC 11:30
PROVIDERS: PCP Family Medicine; Visit Provider Family Medicine
DX: L89.313 Pressure ulcer of right buttock, stage 3 (principal); G35 Multiple sclerosis; Z99.3 Dependence on wheelchair; Z74.01 Bed confinement status; E66.01 Morbid (severe) obesity due to excess calories; Z68.44 Body mass index [BMI] 60.0-69.9, adult; B37.2 Candidiasis of skin and nail; L40.9 Psoriasis, unspecified
CPT/HCPCS: 11042; 11043; 11045; 11046; 15271; 87070; 87075; 87077; 87176; 87186; 87205; 97605; Q4186

== ENCOUNTER 2021-11-25 14:30 | Outpatient (RCR) | payer MEDICARE, SELFPAY ==
[2021-10-29 00:15] VITALS: BP 128/84; PULSE 63; RESP 16; TEMP 35.7; BMI 62.1
[2021-10-31 11:14] VITALS: BP 132/71; PULSE 91; RESP 16; TEMP 35.5; BMI 62.1
--- NOTE | 2021-10-31 15:19 | PCM.WC.PN ---
History of Present Illness Date of Service: 10/31/21 Chief Complaint: Right posterior labial pressure sore, Stage III History of Wound: Zoey is a 66 yo female that is bed bound/wheelchair bound from complications of MS that presents to the wound healing center today for evaluation and treatment of a pressure ulcer of her right posterior labia that has been present since January 2021. She had been doing well but had a pressure ulcer of her right posterior labia develop in January 2021 after an abrasion from transferring after a shower. Her began applying Santyl and Aquacel Ag for several weeks and then Aquacel Ag alone for moderate drainage to the wound at that time and it was nearly healed until several weeks ago she was at a bridal shower and was out of bed for a longer period of time and the following day there was significant bruising to the area and it began to become larger and drain more. For the last 2 weeks he had returned to applying Santyl and Aquacel Extra to the wound but was not noticing significant improvement and called to be seen at the wound healing center. Her helps with her care and he reports that she has significant vaginal drainage for the last several months since she has been being treated with Estradiol for vaginal itching. She uses a tablet vaginally 3 times/week and her notes that there is copious clear-king vaginal discharge. She has a suprapubic catheter in place so it is not likely that it is urine that is leaking. He finds it very difficult to keep the wound dry due to this drainage. She has an upcoming appointment with her director integrated on 07/16/2021 for recheck. She currently is not taking any antibiotics and she has not undergone any wound cultures of this ulcer. She denies fever, chills, nausea, vomiting or other systemic signs of infection. There is moderate to heavy drainage from the ulcer and they have been using Mepilix with border and Aquacel Ag and Santyl for the last 2 weeks. 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 Progress of Wound: Zoey's ulcer is somewhat improved. She no longer has necrotic tissue or slough at the base of the wound. Drainage is still heavy at times. She has had improvement in vaginal discharge since discontinuing the use of estradiol. Wound culture was positive and she was started on doxycycline. She continues on ciprofloxacin. Objective Data Objective Data Vital Signs: Vital Signs Temp Pulse Resp BP 96 F L 91 16 132/71 H 10/31/21 11:14 10/31/21 11:14 10/31/21 11:14 10/31/21 11:14 Oxygen Delivery Method Room Air Weight: 180 kg Body Mass Index (BMI) 62.1 Physical Exam Const alert, oriented x3 and no apparent distress General Appearance: cooperative and comfortable HEENT normocephalic and head/scalp atraumatic Resp normal respiratory effort Effort and Inspection: able to speak in complete sentences Cardio regular rate and regular rhythm Skin Wounds: wounds noted Wound Narrative: as in clinical panel Psych thought process normal and cooperative Mood & Affect: depressed Thought Content: No suicidality and No homicidality Debridement Note Debridement Note Wound debrided: right posterior labia Laterality: Right Wound Grade/Stage: Stage IV Type of Debridement: Excisional debridement Anesthesia Used: 4% Lidocaine Solution Depth: Down to and including healthy tissue, in the subcutaneous layer and to muscle Percentage of wound debrided: 100 Instrument Used: 5mm curette Tissue Removed: Yellow slough, devitalized tissue Severity: Fat Layer Exposed Amount of bleeding with debridement: Mild Bleeding Controlled with: Compression and gauze Patient tolerated procedure: Patient tolerated procedure well Post-Debridement Measurements and Additional Note: Post-Debridement Measurements/Treatment - Nurse 1 - General Ulcer Assessment Start: 10/31/21 11:14 Freq: Status: Active Protocol: LINK Activity Type Activity Date Activity User E-Sign Co-Sign Detail Recorded Client Recorded Date Recorded By Document 10/31/21 11:14 [id number] 10/31/21 11:27 RB 10/31/21 11:14 - Today's Visit Information Type of service Follow-up Visit (Physician/FISHERIES BIOLOGIST ) Arrival Mode Wheelchair Transfer Assistance Doug Lift Accompanied by Patient Identification Verified (Name & Yes ) Patient Requires Transmission-Based No Precautions Height and Weight Body Mass Index (BMI) 62.1 BMI Classification Obese Vital Signs Temperature (97.8 F-99.1 F) 96 F L Temperature Source Temporal Pulse Rate (60-100) 91 Pulse Location Monitor Respiratory Rate (12-18) 16 Respiratory rate source Observation Oxygen Delivery Method Room Air Blood Pressure (90/60-120/80) 132/71 H Blood Pressure Mean (mm Hg) 91 Source Monitor Position Sitting Blood Pressure Location Left Arm History Since Last Visit- (Skip if this is Patient's initial visit) Have you changed medications since your No last visit? Any new allergies or adverse reactions No Had a fall/change in ADL's that may No increase risk of falls Signs or symptoms of abuse and/or No neglect since last visit Have you been in the hospital since your No last visit? Has dressing in place as prescribed Yes Has compression in place as prescribed N/A Has offloadiing in place as prescribed Yes Experienced any changes in pain level or No management Left Footwear Regular Shoe Right Footwear Regular Shoe Pain Scale: 0-10 Numeric Is Patient Pain Free? Yes WC - Nurse 1 - General Ulcer Measurement Start: 10/31/21 11:14 Freq: Status: Active Protocol: Activity Type Activity Date Activity User E-Sign Co-Sign Detail Recorded Client Recorded Date Recorded By Document 10/31/21 11:14 [id number] 10/31/21 11:27 RB 10/31/21 11:14 Wound Center Nurse 1 6. R posterior labia -Combined with other wound No -Current Size (cm) - Length 3 -Current Size (cm) - Width 6 -Current Size (cm) - Depth 3 -Total Square Cm 18 -Photo Taken No -Epithelialization None Present -Tunneling No -Undermining/Tunneling Yes -Undermining/Tunneling Starts (O'clock 12 ) -Undermining/Tunneling Ends (O'clock) 2 -Maximum Distance (cm) 6 -Circular Undermining No -Exudate Amt Large -Exudate Type Serosanguineous -Wound Margin Distinct, Outline Attached -Granulation Amt Large (67-100%) -Granulation Quality Red -Slough/Fibrin Yes -Necrosis Amt Small (1-33%) -Necrotic Tissue Type Adherent Slough -Texture (Janene-wound Skin Appearance) Assessed, Scarring -Moisture (Janene-wound Skin Appearance) Assessed,Dry/ Scaly -Color (Janene-wound Skin Appearance) Assessed, Erythema -Temperature (Janene-wound Skin No Abnormality Appearance) (Pt Warm) -Tenderness on Palpation (Janene-wound Yes Skin Appearance) -Ulcer Cleansing Soap and Water -Foul Odor after Cleansing No -Anesthetic Used 4% Lidocaine Solution LOUISE - Nurse 2 - General Ulcer CM Notes Start: 10/31/21 11:14 Freq: Status: Active Protocol: Activity Type Activity Date Activity User E-Sign Co-Sign Detail Recorded Client Recorded Date Recorded By Document 10/31/21 11:39 [id number] 10/31/21 11:54 10/31/21 11:39 Wound Center Nurse 2 -Time 11:40 -Correct Patient Yes -Correct Side, Site, Position Yes -Correct Procedure Yes -Procedure Performed Yes -Type of Procedure Debridement -Clinical Debridement Subcutaneous -Tissue Removed Subcutaneous -Post Debridement (cm) - Length 4.2 -Post Debridement (cm) - Width 3.3 -Post Debridement (cm) - Depth 3.2 -Total Square (Post) (cm) 13.86 -Area of Debridement (cm) - Length 4.2 -Area of Debridement (cm) - Width 3.3 -Total Square (Area) (cm) 13.86 -Tunneling No -Undermining/Tunneling Yes -Undermining/Tunneling Starts (O'clock 12 ) -Undermining/Tunneling Ends (O'clock) 1 -Maximum Distance (cm) 5.1 -Circular Undermining No -Wound/Ulcer Outcome Not Healed -Ulcer Cleansing Rinsed/ Irrigated with Saline -Foul Odor after Cleansing No -Bioengineered Tissue Yes -Type of Bioengineered Tissue Epifix Mesh -Expiration Date 06/29/26 -Product Lot Number [id number] -Percent Used 100 -Lot number of Saline Used [id number] -Bleeding Controlled with Pressure -Offloading No -Treatment Response Procedure Tolerated Well -Debridement - Subq, 1st 20sq cm No -Apply Skin Sub - 1st 25 sq cm - Legs 1 -Epifix Mesh (per sq cm) 11 Pain Scale: 0-10 Numeric Is Patient Pain Free? Yes LOUISE - Nurse 3 - General Ulcer D/C NN Start: 10/31/21 11:14 Freq: Status: Active Protocol: Activity Type Activity Date Activity User E-Sign Co-Sign Detail Recorded Client Recorded Date Recorded By Document 10/31/21 12:29 RB [id number] 10/31/21 12:30 RB 10/31/21 12:29 Wound Care Nurse 3 6. R posterior labia -Negative Pressure Wound Therapy Continue -Setting (mmHg) 125 -Negative Pressure is Continuous -NPWT Application Charge NPWT </= 50 sq cm ($) Treatment Response Procedure Tolerated Well Pain Scale: 0-10 Numeric Is Patient Pain Free? Yes WC - Visit Discharge Discharge Condition Stable Ambulatory Status Wheelchair Transportation Private Auto Medication Reconcilliation completed & No provided to patient/care provider Clinical Summary of Care Provided Yes Assessment/Plan Assessment/Plan (1) Pressure injury of buttock, stage 4: CODE(S): L89.304 - Pressure ulcer of unspecified buttock, stage 4 QUALIFIERS: Laterality: right Qualified Code(s): L89.314 - Pressure ulcer of right buttock, stage 4 (2) Psoriasis: CODE(S): L40.9 - Psoriasis, unspecified (3) Multiple sclerosis: CODE(S): G35 - Multiple sclerosis (4) Debility: CODE(S): R53.81 - Other malaise PLAN: Zoey's ulcer was evaluated and debrided today at the wound healing center. Excisional debridement to expose the wound bed further and extend the outer border of the ulcer performed as above. Epifix applied today per circulation analyst guidelines, covered with wound veil after rehydration with hydrogel. Wound vac reapplied at setting of 125 mmHg and will be changed on Wednesday. She will continue ciprofloxacin, doxycycline. Due to the poor progression of her ulcer, she would benefit from application of a skin substitute such as Epifix in order to heal her ulcer and hopefully avoid need for surgical treatment and closure with a skin flap or graft. Labs reveal adequate nutrition and otherwise were not significantly abnormal. Encouraged increased protein intake to support nutrition and optimize healing. Encouraged offloading of her right buttock/labia as much as possible in order to heal the ulcer. She and her were advised to call with any concerns or increased drainage, erythema or odor. She will return in 1 week for wound care.
[2021-11-07 11:14] VITALS: BP 142/89; PULSE 93; RESP 20; TEMP 36.2; BMI 62.1
--- NOTE | 2021-11-07 14:22 | PN.PCM_ITS ---
History of Present Illness Date of Service: 11/07/21 Chief Complaint: Right posterior labial pressure sore, Stage III History of Wound: Zoey is a 66 yo female that is bed bound/wheelchair bound from complications of MS that presents to the wound healing center today for evaluation and treatment of a pressure ulcer of her right posterior labia that has been present since January 2021. She had been doing well but had a pressure ulcer of her right posterior labia develop in January 2021 after an abrasion from transferring after a shower. Her began applying Santyl and Aquacel Ag for several weeks and then Aquacel Ag alone for moderate drainage to the wound at that time and it was nearly healed until several weeks ago she was at a bridal shower and was out of bed for a longer period of time and the following day there was significant bruising to the area and it began to become larger and drain more. For the last 2 weeks he had returned to applying Santyl and Aquacel Extra to the wound but was not noticing significant improvement and called to be seen at the wound healing center. Her helps with her care and he reports that she has significant vaginal drainage for the last several months since she has been being treated with Estradiol for vaginal itching. She uses a tablet vaginally 3 times/week and her notes that there is copious clear-king vaginal discharge. She has a suprapubic catheter in place so it is not likely that it is urine that is leaking. He finds it very difficult to keep the wound dry due to this drainage. She has an upcoming appointment with her biomedical engineering professor on 07/16/2021 for recheck. She currently is not taking any antibiotics and she has not undergone any wound cultures of this ulcer. She denies fever, chills, nausea, vomiting or other systemic signs of infection. There is moderate to heavy drainage from the ulcer and they have been using Mepilix with border and Aquacel Ag and Santyl for the last 2 weeks. 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 Progress of Wound: Zoey's ulcer is somewhat improved. She no longer has necrotic tissue or slough at the base of the wound. Drainage is still heavy at times. She has had improvement in vaginal discharge since discontinuing the use of estradiol. She continues on ciprofloxacin. Objective Data Objective Data Vital Signs: Vital Signs Temp Pulse Resp BP 97.1 F L 93 20 H 142/89 H 11/07/21 11:14 11/07/21 11:14 11/07/21 11:14 11/07/21 11:14 Oxygen Delivery Method Room Air Weight: 180 kg Body Mass Index (BMI) 62.1 Physical Exam Const alert, oriented x3 and no apparent distress General Appearance: cooperative and comfortable HEENT normocephalic and head/scalp atraumatic Resp normal respiratory effort Effort and Inspection: able to speak in complete sentences Cardio regular rate and regular rhythm Skin Wounds: wounds noted Wound Narrative: as in clinical panel Psych thought process normal and cooperative Mood & Affect: depressed Thought Content: No suicidality and No homicidality Debridement Note Debridement Note Wound debrided: right posterior labia Laterality: Right Wound Grade/Stage: Stage III Type of Debridement: Excisional debridement Anesthesia Used: 4% Lidocaine Solution Depth: Down to and including healthy tissue, in the subcutaneous layer and to muscle Percentage of wound debrided: 100 Instrument Used: 5mm curette Tissue Removed: Yellow slough, devitalized tissue Amount of bleeding with debridement: Mild Bleeding Controlled with: Compression and gauze Patient tolerated procedure: Patient tolerated procedure well Post-Debridement Measurements and Additional Note: Post-Debridement Measurements/Treatment - Nurse 1 - General Ulcer Assessment Start: 10/31/21 11:14 Freq: Status: Active Protocol: LINK Activity Type Activity Date Activity User E-Sign Co-Sign Detail Recorded Client Recorded Date Recorded By Document 10/31/21 11:14 RB [id number] 10/31/21 11:27 RB Document 11/07/21 11:14 DL [id number] 11/07/21 11:17 DL 10/31/21 11/07/21 11:14 11:14 - Today's Visit Information Type of service Follow-up Visit Follow-up Visit (Physician/HIDE OR SKIN BUFFER (Physician/HIDE OR SKIN BUFFER ) ) Arrival Mode Wheelchair Wheelchair Transfer Assistance Doug Lift Doug Lift Accompanied by Patient Identification Verified (Name & Yes Yes ) Patient Requires Transmission-Based No No Precautions Height and Weight Body Mass Index (BMI) 62.1 62.1 BMI Classification Obese Obese Vital Signs Temperature (97.8 F-99.1 F) 96 F L 97.1 F L Temperature Source Temporal Temporal Pulse Rate (60-100) 91 93 Pulse Location Monitor Monitor Respiratory Rate (12-18) 16 20 H Respiratory rate source Observation Observation Oxygen Delivery Method Room Air Blood Pressure (90/60-120/80) 132/71 H 142/89 H Blood Pressure Mean (mm Hg) 91 106 Source Monitor Monitor Position Sitting Blood Pressure Location Left Arm History Since Last Visit- (Skip if this is Patient's initial visit) Have you changed medications since your No No last visit? Any new allergies or adverse reactions No No Had a fall/change in ADL's that may No No increase risk of falls Signs or symptoms of abuse and/or No No neglect since last visit Have you been in the hospital since your No No last visit? Has dressing in place as prescribed Yes No Has compression in place as prescribed N/A N/A Has offloadiing in place as prescribed Yes Yes Experienced any changes in pain level or No No management Left Footwear Regular Shoe Right Footwear Regular Shoe Pain Scale: 0-10 Numeric Is Patient Pain Free? Yes Yes WC - Nurse 1 - General Ulcer Measurement Start: 10/31/21 11:14 Freq: Status: Active Protocol: Activity Type Activity Date Activity User E-Sign Co-Sign Detail Recorded Client Recorded Date Recorded By Document 10/31/21 11:14 RB [id number] 10/31/21 11:27 RB Document 11/07/21 11:14 DL [id number] 11/07/21 11:17 DL Edit Result 11/07/21 11:14 DL (1) [id number] 11/07/21 11:20 DL (1) 6. R posterior labia - Undermining/Tunneling Starts (O'clock) => 12 - Undermining/Tunneling Ends (O'clock) => 2 - Maximum Distance (cm) => 5.5 10/31/21 11/07/21 11:14 11:14 Wound Center Nurse 1 6. R posterior labia -Combined with other wound No -Current Size (cm) - Length 3 6.3 -Current Size (cm) - Width 6 4.5 -Current Size (cm) - Depth 3 3 -Total Square Cm 18 28.35 -Photo Taken No No -Epithelialization None Present -Tunneling No -Undermining/Tunneling Yes -Undermining/Tunneling Starts (O'clock 12 12 ) -Undermining/Tunneling Ends (O'clock) 2 2 -Maximum Distance (cm) 6 5.5 -Circular Undermining No -Exudate Amt Large Medium -Exudate Type Serosanguineous Serosanguineous -Wound Margin Distinct, Distinct, Outline Outline Attached Attached -Granulation Amt Large (67-100%) Medium (34-66%) -Granulation Quality Red Red -Slough/Fibrin Yes -Necrosis Amt Small (1-33%) Medium (34-66%) -Necrotic Tissue Type Adherent Slough Adherent Slough -Structure Exposed N/A -Texture (Janene-wound Skin Appearance) Assessed, Excoriation, Scarring Scarring,Rash -Moisture (Janene-wound Skin Appearance) Assessed,Dry/ Dry/Scaly Scaly -Color (Janene-wound Skin Appearance) Assessed, No Abnormality Erythema -Temperature (Janene-wound Skin No Abnormality No Abnormality Appearance) (Pt Warm) (Pt Warm) -Tenderness on Palpation (Janene-wound Yes No Skin Appearance) -Ulcer Cleansing Soap and Water Soap and Water -Foul Odor after Cleansing No No -Anesthetic Used 4% Lidocaine 4% Lidocaine Solution Solution WC - Nurse 2 - General Ulcer CM Notes Start: 10/31/21 11:14 Freq: Status: Active Protocol: Activity Type Activity Date Activity User E-Sign Co-Sign Detail Recorded Client Recorded Date Recorded By Document 10/31/21 11:39 [id number] 10/31/21 11:54 Document 11/07/21 11:46 [id number] 11/07/21 12:02 10/31/21 11/07/21 11:39 11:46 Wound Center Nurse 2 6. R posterior labia -Time 11:40 11:48 -Correct Patient Yes Yes -Correct Side, Site, Position Yes Yes -Correct Procedure Yes Yes -Procedure Performed Yes Yes -Type of Procedure Debridement Debridement -Clinical Debridement Subcutaneous Subcutaneous -Tissue Removed Subcutaneous Subcutaneous -Post Debridement (cm) - Length 4.2 4.5 -Post Debridement (cm) - Width 3.3 4 -Post Debridement (cm) - Depth 3.2 2.9 -Total Square (Post) (cm) 13.86 18.0 -Area of Debridement (cm) - Length 4.2 4.5 -Area of Debridement (cm) - Width 3.3 4 -Total Square (Area) (cm) 13.86 18.0 -Tunneling No No -Undermining/Tunneling Yes Yes -Undermining/Tunneling Starts (O'clock 12 12 ) -Undermining/Tunneling Ends (O'clock) 1 1 -Maximum Distance (cm) 5.1 4.3 -Circular Undermining No No -Wound/Ulcer Outcome Not Healed Not Healed -Ulcer Cleansing Rinsed/ Rinsed/ Irrigated with Irrigated with Saline Saline -Foul Odor after Cleansing No No -Bioengineered Tissue Yes Yes -Type of Bioengineered Tissue Epifix Mesh Epifix Mesh -Expiration Date 06/29/26 06/29/26 -Product Lot Number [id number] -Percent Used 100 100 -Lot number of Saline Used [id number] -Bleeding Controlled with Pressure Pressure -Offloading No No -Treatment Response Procedure Procedure Tolerated Well Tolerated Well -Debridement - Subq, 1st 20sq cm No No -Apply Skin Sub - 1st 25 sq cm - Legs 1 1 -Epifix Mesh (per sq cm) 11 11 Pain Scale: 0-10 Numeric Is Patient Pain Free? Yes Yes WC - Nurse 3 - General Ulcer D/C NN Start: 10/31/21 11:14 Freq: Status: Active Protocol: Activity Type Activity Date Activity User E-Sign Co-Sign Detail Recorded Client Recorded Date Recorded By Document 10/31/21 12:29 RB [id number] 10/31/21 12:30 RB Document 11/07/21 12:36 RB [id number] 11/07/21 12:38 RB 10/31/21 11/07/21 12:29 12:36 Wound Care Nurse 3 6. R posterior labia -Negative Pressure Wound Therapy Continue Start -Setting (mmHg) 125 125 -Negative Pressure is Continuous Continuous -NPWT Application Charge NPWT </= 50 sq NPWT </= 50 sq cm ($) cm ($) Janene-Wound Care Barrier Treatment Response Procedure Procedure Tolerated Well Tolerated Well Pain Scale: 0-10 Numeric Is Patient Pain Free? Yes Yes WC - Visit Discharge Discharge Condition Stable Stable Ambulatory Status Wheelchair Wheelchair Transportation Private Auto Private Auto Medication Reconcilliation completed & No No provided to patient/care provider Clinical Summary of Care Provided Yes Yes Assessment/Plan Assessment/Plan (1) Pressure injury of buttock, stage 4: CODE(S): L89.304 - Pressure ulcer of unspecified buttock, stage 4 QUALIFIERS: Laterality: right Qualified Code(s): L89.314 - Pressure ulcer of right buttock, stage 4 (2) Psoriasis: CODE(S): L40.9 - Psoriasis, unspecified (3) Multiple sclerosis: CODE(S): G35 - Multiple sclerosis (4) Debility: CODE(S): R53.81 - Other malaise PLAN: Ezekiels ulcer was evaluated and debrided today at the wound healing center. Excisional debridement to expose the wound bed further and extend the outer border of the ulcer performed as above. Epifix applied today per bulk sausage casing tier off guidelines, covered with wound veil after rehydration with hydrogel. Wound vac reapplied at setting of 125 mmHg and will be changed on Wednesday. She will continue ciprofloxacin, doxycycline. Due to the poor progression of her ulcer, she would benefit from application of a skin substitute such as Epifix in order to heal her ulcer and hopefully avoid need for surgical treatment and closure with a skin flap or graft. Labs reveal adequate nutrition and otherwise were not significantly abnormal. Encouraged increased protein intake to support nutrition and optimize healing. Encouraged offloading of her right buttock/labia as much as possible in order to heal the ulcer. She and her were advised to call with any concerns or increased drainage, erythema or odor. She will return in 1 week for wound care.
[2021-11-14 11:39] VITALS: BMI 62.1
--- NOTE | 2021-11-14 14:01 | PCM.WC.PN ---
History of Present Illness Date of Service: 11/14/21 Chief Complaint: Right posterior labial pressure sore, Stage III History of Wound: Zoey is a 66 yo female that is bed bound/wheelchair bound from complications of MS that presents to the wound healing center today for evaluation and treatment of a pressure ulcer of her right posterior labia that has been present since January 2021. She had been doing well but had a pressure ulcer of her right posterior labia develop in January 2021 after an abrasion from transferring after a shower. Her began applying Santyl and Aquacel Ag for several weeks and then Aquacel Ag alone for moderate drainage to the wound at that time and it was nearly healed until several weeks ago she was at a bridal shower and was out of bed for a longer period of time and the following day there was significant bruising to the area and it began to become larger and drain more. For the last 2 weeks he had returned to applying Santyl and Aquacel Extra to the wound but was not noticing significant improvement and called to be seen at the wound healing center. Her helps with her care and he reports that she has significant vaginal drainage for the last several months since she has been being treated with Estradiol for vaginal itching. She uses a tablet vaginally 3 times/week and her notes that there is copious clear-king vaginal discharge. She has a suprapubic catheter in place so it is not likely that it is urine that is leaking. He finds it very difficult to keep the wound dry due to this drainage. She has an upcoming appointment with her gardener florist on 07/16/2021 for recheck. She currently is not taking any antibiotics and she has not undergone any wound cultures of this ulcer. She denies fever, chills, nausea, vomiting or other systemic signs of infection. There is moderate to heavy drainage from the ulcer and they have been using Mepilix with border and Aquacel Ag and Santyl for the last 2 weeks. 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 Progress of Wound: Zoey's ulcer is somewhat improved. She no longer has necrotic tissue or slough at the base of the wound. Drainage is still heavy at times. She has had improvement in vaginal discharge since discontinuing the use of estradiol. She continues on ciprofloxacin. Objective Data Objective Data Vital Signs: Vital Signs Temp Pulse Resp BP 97.1 F L 93 20 H 142/89 H 11/07/21 11:14 11/07/21 11:14 11/07/21 11:14 11/07/21 11:14 Oxygen Delivery Method Room Air Weight: 180 kg Body Mass Index (BMI) 62.1 Physical Exam Const alert, oriented x3 and no apparent distress General Appearance: cooperative and comfortable HEENT normocephalic and head/scalp atraumatic Resp normal respiratory effort Effort and Inspection: able to speak in complete sentences Cardio regular rate and regular rhythm Skin Wounds: wounds noted Wound Narrative: as in clinical panel Psych thought process normal and cooperative Mood & Affect: depressed Thought Content: No suicidality and No homicidality Debridement Note Debridement Note Wound debrided: right posterior labia Laterality: Right Wound Grade/Stage: Stage III Type of Debridement: Excisional debridement Anesthesia Used: 4% Lidocaine Solution Depth: Down to and including healthy tissue, in the subcutaneous layer and to muscle Percentage of wound debrided: 100 Instrument Used: 5mm curette Tissue Removed: Yellow slough, devitalized tissue Severity: Fat Layer Exposed Amount of bleeding with debridement: Mild Bleeding Controlled with: Compression and gauze Patient tolerated procedure: Patient tolerated procedure well Post-Debridement Measurements and Additional Note: Post-Debridement Measurements/Treatment WC - Nurse 1 - General Ulcer Assessment Start: 10/31/21 11:14 Freq: Status: Active Protocol: LINK Activity Type Activity Date Activity User E-Sign Co-Sign Detail Recorded Client Recorded Date Recorded By Document 10/31/21 11:14 RB [id number] 10/31/21 11:27 RB Document 11/07/21 11:14 DL [id number] 11/07/21 11:17 DL Document 11/14/21 11:39 MT [id number] 11/14/21 11:55 MT 10/31/21 11/07/21 11/14/21 11:14 11:14 11:39 - Today's Visit Information Type of service Follow-up Visit Follow-up Visit (Physician/MONEY COUNTER (Physician/MONEY COUNTER ) ) Arrival Mode Wheelchair Wheelchair Transfer Assistance Doug Lift Doug Lift Accompanied by Patient Identification Verified (Name & Yes Yes ) Patient Requires Transmission-Based No No Precautions Height and Weight Body Mass Index (BMI) 62.1 62.1 62.1 BMI Classification Obese Obese Obese Vital Signs Temperature (97.8 F-99.1 F) 96 F L 97.1 F L Temperature Source Temporal Temporal Pulse Rate (60-100) 91 93 Pulse Location Monitor Monitor Respiratory Rate (12-18) 16 20 H Respiratory rate source Observation Observation Oxygen Delivery Method Room Air Blood Pressure (90/60-120/80) 132/71 H 142/89 H Blood Pressure Mean (mm Hg) 91 106 Source Monitor Monitor Position Sitting Blood Pressure Location Left Arm History Since Last Visit- (Skip if this is Patient's initial visit) Have you changed medications since your No No last visit? Any new allergies or adverse reactions No No Had a fall/change in ADL's that may No No increase risk of falls Signs or symptoms of abuse and/or No No neglect since last visit Have you been in the hospital since your No No last visit? Has dressing in place as prescribed Yes No Has compression in place as prescribed N/A N/A Has offloadiing in place as prescribed Yes Yes Experienced any changes in pain level or No No management Left Footwear Regular Shoe Right Footwear Regular Shoe Pain Scale: 0-10 Numeric Is Patient Pain Free? Yes Yes WC - Nurse 1 - General Ulcer Measurement Start: 10/31/21 11:14 Freq: Status: Active Protocol: Activity Type Activity Date Activity User E-Sign Co-Sign Detail Recorded Client Recorded Date Recorded By Document 10/31/21 11:14 RB [id number] 10/31/21 11:27 RB Document 11/07/21 11:14 DL [id number] 11/07/21 11:17 DL Edit Result 11/07/21 11:14 DL (1) [id number] 11/07/21 11:20 DL Document 11/14/21 11:39 MT [id number] 11/14/21 11:55 MT (1) 6. R posterior labia - Undermining/Tunneling Starts (O'clock) => 12 - Undermining/Tunneling Ends (O'clock) => 2 - Maximum Distance (cm) => 5.5 10/31/21 11/07/21 12 11:14 11:14 11:39 Wound Center Nurse 1 6. R posterior labia -Combined with other wound No -Current Size (cm) - Length 3 6.3 4 -Current Size (cm) - Width 6 4.5 7 -Current Size (cm) - Depth 3 3 3.0 -Total Square Cm 18 28.35 28 -Photo Taken No No -Epithelialization None Present -Tunneling No -Undermining/Tunneling Yes Yes -Undermining/Tunneling Starts (O'clock 12 12 3 ) -Undermining/Tunneling Ends (O'clock) 2 2 9 -Maximum Distance (cm) 6 5.5 5 -Circular Undermining No -Exudate Amt Large Medium Small -Exudate Type Serosanguineous Serosanguineous Serosanguineous -Wound Margin Distinct, Distinct, Thickened & Outline Outline Rolled Under Attached Attached -Granulation Amt Large (67-100%) Medium (34-66%) Large (67-100%) -Granulation Quality Red Red Pale,[place] -Slough/Fibrin Yes -Necrosis Amt Small (1-33%) Medium (34-66%) Small (1-33%) -Necrotic Tissue Type Adherent Slough Adherent Slough Adherent Slough -Structure Exposed N/A -Texture (Janene-wound Skin Appearance) Assessed, Excoriation, Assessed Scarring Scarring,Rash -Moisture (Janene-wound Skin Appearance) Assessed,Dry/ Dry/Scaly Assessed Scaly -Color (Janene-wound Skin Appearance) Assessed, No Abnormality Assessed Erythema -Temperature (Janene-wound Skin No Abnormality No Abnormality No Abnormality Appearance) (Pt Warm) (Pt Warm) (Pt Warm) -Tenderness on Palpation (Janene-wound Yes No No Skin Appearance) -Ulcer Cleansing Soap and Water Soap and Water Soap and Water -Foul Odor after Cleansing No No No -Anesthetic Used 4% Lidocaine 4% Lidocaine 4% Lidocaine Solution Solution Solution WC - Nurse 2 - General Ulcer CM Notes Start: 10/31/21 11:14 Freq: Status: Active Protocol: Activity Type Activity Date Activity User E-Sign Co-Sign Detail Recorded Client Recorded Date Recorded By Document 10/31/21 11:39 [id number] 10/31/21 11:54 Document 11/07/21 11:46 JF [id number] 11/07/21 12:02 JF Document 11/14/21 12:03 MW [id number] 11/14/21 12:31 MW 10/31/21 11/07/21 11/14/21 11:39 11:46 12:03 Wound Center Nurse 2 6. R posterior labia -Time 11:40 11:48 12:04 -Correct Patient Yes Yes Yes -Correct Side, Site, Position Yes Yes Yes -Correct Procedure Yes Yes Yes -Procedure Performed Yes Yes Yes -Type of Procedure Debridement Debridement Debridement -Clinical Debridement Subcutaneous Subcutaneous Subcutaneous -Tissue Removed Subcutaneous Subcutaneous Subcutaneous -Post Debridement (cm) - Length 4.2 4.5 6.2 -Post Debridement (cm) - Width 3.3 4 3.5 -Post Debridement (cm) - Depth 3.2 2.9 3.0 -Total Square (Post) (cm) 13.86 18.0 21.70 -Area of Debridement (cm) - Length 4.2 4.5 6.2 -Area of Debridement (cm) - Width 3.3 4 3.5 -Total Square (Area) (cm) 13.86 18.0 21.70 -Tunneling No No No -Undermining/Tunneling Yes Yes Yes -Undermining/Tunneling Starts (O'clock 12 12 1 ) -Undermining/Tunneling Ends (O'clock) 1 1 2 -Maximum Distance (cm) 5.1 4.3 2.7 -Circular Undermining No No No -Wound/Ulcer Outcome Not Healed Not Healed Not Healed -Ulcer Cleansing Rinsed/ Rinsed/ Rinsed/ Irrigated with Irrigated with Irrigated with Saline Saline Saline -Foul Odor after Cleansing No No No -Bioengineered Tissue Yes Yes Yes -Type of Bioengineered Tissue Epifix Mesh Epifix Mesh Epifix Mesh -Expiration Date 06/29/26 06/29/26 06/29/26 -Product Lot Number [id number] -Percent Used 100 100 100 -Lot number of Saline Used [id number] -Bleeding Controlled with Pressure Pressure Pressure -Offloading No No No -Treatment Response Procedure Procedure Procedure Tolerated Well Tolerated Well Tolerated Well -Debridement - Subq, 1st 20sq cm No No No -Apply Skin Sub - 1st 25 sq cm - Legs 1 1 1 -Epifix Mesh (per sq cm) 11 11 11 Pain Scale: 0-10 Numeric Is Patient Pain Free? Yes Yes Yes - Nurse 3 - General Ulcer D/C NN Start: 10/31/21 11:14 Freq: Status: Active Protocol: Activity Type Activity Date Activity User E-Sign Co-Sign Detail Recorded Client Recorded Date Recorded By Document 10/31/21 12:29 RB [id number] 10/31/21 12:30 RB Document 11/07/21 12:36 RB [id number] 11/07/21 12:38 RB Document 11/14/21 13:10 RB [id number] 11/14/21 13:11 RB 10/31/21 11/07/21 11/14/21 12:29 12:36 13:10 Wound Care Nurse 3 6. R posterior labia -Ulcer Cleansing Wound Cleanser -Negative Pressure Wound Therapy Continue Start Start -Setting (mmHg) 125 125 125 -Negative Pressure is Continuous Continuous Continuous -NPWT Application Charge NPWT </= 50 sq NPWT </= 50 sq NPWT </= 50 sq cm ($) cm ($) cm ($) Janene-Wound Care Barrier Treatment Response Procedure Procedure Procedure Tolerated Well Tolerated Well Tolerated Well Pain Scale: 0-10 Numeric Is Patient Pain Free? Yes Yes Yes - Visit Discharge Discharge Condition Stable Stable Stable Ambulatory Status Wheelchair Wheelchair Wheelchair Transportation Private Auto Private Auto Private Auto Medication Reconcilliation completed & No No No provided to patient/care provider Clinical Summary of Care Provided Yes Yes Yes Assessment/Plan Assessment/Plan (1) Pressure injury of buttock, stage 4: CODE(S): L89.304 - Pressure ulcer of unspecified buttock, stage 4 QUALIFIERS: Laterality: right Qualified Code(s): L89.314 - Pressure ulcer of right buttock, stage 4 (2) Psoriasis: CODE(S): L40.9 - Psoriasis, unspecified (3) Multiple sclerosis: CODE(S): G35 - Multiple sclerosis (4) Debility: CODE(S): R53.81 - Other malaise PLAN: Zoey's ulcer was evaluated and debrided today at the wound healing center. Excisional debridement to expose the wound bed further and extend the outer border of the ulcer performed as above. Epifix applied today per material clerk guidelines, covered with wound veil after rehydration with hydrogel. Wound vac reapplied at setting of 125 mmHg and will be changed on Wednesday with return to 150 mm Hg and then changed on Wednesday. Hold vac change until Wednesday11/25/21 when she will be seen for wound care due to the holiday. She will continue ciprofloxacin. Gabapentin also refilled. Due to the poor progression of her ulcer, she would benefit from application of a skin substitute such as Epifix in order to heal her ulcer and hopefully avoid need for surgical treatment and closure with a skin flap or graft. Labs reveal adequate nutrition and otherwise were not significantly abnormal. Encouraged increased protein intake to support nutrition and optimize healing. Encouraged offloading of her right buttock/labia as much as possible in order to heal the ulcer. She and her were advised to call with any concerns or increased drainage, erythema or odor. She will return in 10 days for wound care.
[2021-11-25 14:40] VITALS: BP 117/74; PULSE 90; TEMP 35.9; BMI 62.1
--- NOTE | 2021-11-25 17:59 | PN.PCM_ITS ---
History of Present Illness Date of Service: 11/25/21 Chief Complaint: Right posterior labial pressure sore, Stage III History of Wound: Zoey is a 66 yo female that is bed bound/wheelchair bound from complications of MS that presents to the wound healing center today for evaluation and treatment of a pressure ulcer of her right posterior labia that has been present since January 2021. She had been doing well but had a pressure ulcer of her right posterior labia develop in January 2021 after an abrasion from transferring after a shower. Her began applying Santyl and Aquacel Ag for several weeks and then Aquacel Ag alone for moderate drainage to the wound at that time and it was nearly healed until several weeks ago she was at a bridal shower and was out of bed for a longer period of time and the following day there was significant bruising to the area and it began to become larger and drain more. For the last 2 weeks he had returned to applying Santyl and Aquacel Extra to the wound but was not noticing significant improvement and called to be seen at the wound healing center. Her helps with her care and he reports that she has significant vaginal drainage for the last several months since she has been being treated with Estradiol for vaginal itching. She uses a tablet vaginally 3 times/week and her notes that there is copious clear-king vaginal discharge. She has a suprapubic catheter in place so it is not likely that it is urine that is leaking. He finds it very difficult to keep the wound dry due to this drainage. 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 She currently is not taking any antibiotics and she has not undergone any wound cultures of this ulcer. She denies fever, chills, nausea, vomiting or other systemic signs of infection. There is moderate to heavy drainage from the ulcer and they have been using Mepilix with border and Aquacel Ag and Santyl for the last 2 weeks. 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 Progress of Wound: Zoey's ulcer is somewhat improved. She no longer has necrotic tissue or slough at the base of the wound. Drainage is still heavy at times. She has had improvement in vaginal discharge since discontinuing the use of estradiol. She continues on ciprofloxacin. Objective Data Objective Data Vital Signs: Vital Signs Temp Pulse Resp BP 96.6 F L 90 20 H 117/74 11/25/21 14:40 11/25/21 14:40 11/07/21 11:14 11/25/21 14:40 Oxygen Delivery Method Room Air Weight: 180 kg Body Mass Index (BMI) 62.1 Physical Exam Const alert, oriented x3 and no apparent distress General Appearance: cooperative and comfortable HEENT normocephalic and head/scalp atraumatic Resp normal respiratory effort Effort and Inspection: able to speak in complete sentences Cardio regular rate and regular rhythm Skin Wounds: wounds noted Wound Narrative: as in clinical panel Psych thought process normal and cooperative Mood & Affect: depressed Thought Content: No suicidality and No homicidality Debridement Note Debridement Note Wound debrided: right posterior labia Laterality: Right Wound Grade/Stage: Stage III Type of Debridement: Excisional debridement Anesthesia Used: 4% Lidocaine Solution Depth: Down to and including healthy tissue, in the subcutaneous layer and to muscle Percentage of wound debrided: 100 Instrument Used: 5mm curette Tissue Removed: Yellow slough, devitalized tissue Severity: Necrosis of Muscle Amount of bleeding with debridement: Mild Bleeding Controlled with: Compression and gauze Patient tolerated procedure: Patient tolerated procedure well Post-Debridement Measurements and Additional Note: Post-Debridement Measurements/Treatment WC - Nurse 1 - General Ulcer Assessment Start: 10/31/21 11:14 Freq: Status: Active Protocol: LINK Activity Type Activity Date Activity User E-Sign Co-Sign Detail Recorded Client Recorded Date Recorded By Document 10/31/21 11:14 RB [id number] 10/31/21 11:27 RB Document 11/07/21 11:14 DL [id number] 11/07/21 11:17 DL Document 11/14/21 11:39 MT [id number] 11/14/21 11:55 MT Document 11/25/21 14:40 KR [id number] 11/25/21 14:58 KR 10/31/21 11/07/21 11/14/21 11:14 11:14 11:39 WC - Today's Visit Information Type of service Follow-up Visit Follow-up Visit (Physician/[employer]STER (Physician/[employer] STRENGTH TESTER ) ) Arrival Mode Wheelchair Wheelchair Transfer Assistance Doug Lift Doug Lift Accompanied by Patient Identification Verified (Name & Yes Yes ) Patient Requires Transmission-Based No No Precautions Height and Weight Body Mass Index (BMI) 62.1 62.1 62.1 BMI Classification Obese Obese Obese Vital Signs Temperature (97.8 F-99.1 F) 96 F L 97.1 F L Temperature Source Temporal Temporal Pulse Rate (60-100) 91 93 Pulse Location Monitor Monitor Respiratory Rate (12-18) 16 20 H Respiratory rate source Observation Observation Oxygen Delivery Method Room Air Blood Pressure (90/60-120/80) 132/71 H 142/89 H Blood Pressure Mean (mm Hg) 91 106 Source Monitor Monitor Position Sitting Blood Pressure Location Left Arm History Since Last Visit- (Skip if this is Patient's initial visit) Have you changed medications since your No No last visit? Any new allergies or adverse reactions No No Had a fall/change in ADL's that may No No increase risk of falls Signs or symptoms of abuse and/or No No neglect since last visit Have you been in the hospital since your No No last visit? Has dressing in place as prescribed Yes No Has compression in place as prescribed N/A N/A Has offloadiing in place as prescribed Yes Yes Experienced any changes in pain level or No No management Left Footwear Regular Shoe Right Footwear Regular Shoe Pain Scale: 0-10 Numeric Is Patient Pain Free? Yes Yes 11/25/21 14:40 [facility] Today's Visit Information Type of service Follow-up Visit (Physician/[employer]ENGTH TESTER ) Arrival Mode Wheelchair Transfer Assistance Accompanied by Patient Identification Verified (Name & Yes ) Patient Requires Transmission-Based Precautions Height and Weight Body Mass Index (BMI) 62.1 BMI Classification Obese Vital Signs Temperature (97.8 F-99.1 F) 96.6 F L Temperature Source Temporal Pulse Rate (60-100) 90 Pulse Location Monitor Respiratory Rate (12-18) Respiratory rate source Oxygen Delivery Method Blood Pressure (90/60-120/80) 117/74 Blood Pressure Mean (mm Hg) 88 Source Monitor Position Semi-Fowlers Blood Pressure Location Right Arm History Since Last Visit- (Skip if this is Patient's initial visit) Have you changed medications since your No last visit? Any new allergies or adverse reactions No Had a fall/change in ADL's that may No increase risk of falls Signs or symptoms of abuse and/or No neglect since last visit Have you been in the hospital since your No last visit? Has dressing in place as prescribed Yes Has compression in place as prescribed N/A Has offloadiing in place as prescribed N/A Experienced any changes in pain level or No management Left Footwear Slipper Right Footwear Slipper Pain Scale: 0-10 Numeric Is Patient Pain Free? Yes WC - Nurse 1 - General Ulcer Measurement Start: 10/31/21 11:14 Freq: Status: Active Protocol: Activity Type Activity Date Activity User E-Sign Co-Sign Detail Recorded Client Recorded Date Recorded By Document 10/31/21 11:14 RB [id number] 10/31/21 11:27 RB Document 11/07/21 11:14 DL [id number] 11/07/21 11:17 DL Edit Result 11/07/21 11:14 DL (1) [id number] 11/07/21 11:20 DL Document 11/14/21 11:39 MT [id number] 11/14/21 11:55 MT Document 11/25/21 14:40 KR [id number] 11/25/21 14:58 KR (1) 6. R posterior labia - Undermining/Tunneling Starts (O'clock) => 12 - Undermining/Tunneling Ends (O'clock) => 2 - Maximum Distance (cm) => 5.5 10/31/21 11/07/21 11/14/21 11:14 11:14 11:39 Wound Center Nurse 1 6. R posterior labia -Combined with other wound No -Current Size (cm) - Length 3 6.3 4 -Current Size (cm) - Width 6 4.5 7 -Current Size (cm) - Depth 3 3 3.0 -Total Square Cm 18 28.35 28 -Photo Taken No No -Epithelialization None Present -Tunneling No -Undermining/Tunneling Yes Yes -Undermining/Tunneling Starts (O'clock 12 12 3 ) -Undermining/Tunneling Ends (O'clock) 2 2 9 -Maximum Distance (cm) 6 5.5 5 -Circular Undermining No -Exudate Amt Large Medium Small -Exudate Type Serosanguineous Serosanguineous Serosanguineous -Wound Margin Distinct, Distinct, Thickened & Outline Outline Rolled Under Attached Attached -Granulation Amt Large (67-100%) Medium (34-66%) Large (67-100%) -Granulation Quality Red Red Pale,[place] -Slough/Fibrin Yes -Necrosis Amt Small (1-33%) Medium (34-66%) Small (1-33%) -Necrotic Tissue Type Adherent Slough Adherent Slough Adherent Slough -Structure Exposed N/A -Texture (Janene-wound Skin Appearance) Assessed, Excoriation, Assessed Scarring Scarring,Rash -Moisture (Janene-wound Skin Appearance) Assessed,Dry/ Dry/Scaly Assessed Scaly -Color (Janene-wound Skin Appearance) Assessed, No Abnormality Assessed Erythema -Temperature (Janene-wound Skin No Abnormality No Abnormality No Abnormality Appearance) (Pt Warm) (Pt Warm) (Pt Warm) -Tenderness on Palpation (Janene-wound Yes No No Skin Appearance) -Ulcer Cleansing Soap and Water Soap and Water Soap and Water -Foul Odor after Cleansing No No No -Anesthetic Used 4% Lidocaine 4% Lidocaine 4% Lidocaine Solution Solution Solution 11/25/21 14:40 Wound Center Nurse 1 6. R posterior labia -Combined with other wound No -Current Size (cm) - Length 4.5 -Current Size (cm) - Width 2.5 -Current Size (cm) - Depth 4 -Total Square Cm 11.25 -Photo Taken No -Epithelialization -Tunneling No -Undermining/Tunneling No -Undermining/Tunneling Starts (O'clock ) -Undermining/Tunneling Ends (O'clock) -Maximum Distance (cm) -Circular Undermining No -Exudate Amt Medium -Exudate Type Serosanguineous -Wound Margin -Granulation Amt Large (67-100%) -Granulation Quality Red -Slough/Fibrin Yes -Necrosis Amt Small (1-33%) -Necrotic Tissue Type Adherent Slough -Structure Exposed -Texture (Janene-wound Skin Appearance) Assessed, Scarring -Moisture (Janene-wound Skin Appearance) No Abnormality, Assessed -Color (Janene-wound Skin Appearance) No Abnormality, Assessed, Erythema -Temperature (Janene-wound Skin No Abnormality Appearance) (Pt Warm) -Tenderness on Palpation (Janene-wound No Skin Appearance) -Ulcer Cleansing Soap and Water -Foul Odor after Cleansing No -Anesthetic Used 4% Lidocaine Solution WC - Nurse 2 - General Ulcer CM Notes Start: 10/31/21 11:14 Freq: Status: Active Protocol: Activity Type Activity Date Activity User E-Sign Co-Sign Detail Recorded Client Recorded Date Recorded By Document 10/31/21 11:39 JF [id number] 10/31/21 11:54 JF Document 11/07/21 11:46 JF [id number] 11/07/21 12:02 JF Document 11/14/21 12:03 MW [id number] 11/14/21 12:31 MW Document 11/25/21 15:08 MW [id number] 11/25/21 15:24 MW 10/31/21 11/07/21 11/14/21 11:39 11:46 12:03 Wound Center Nurse 2 6. R posterior labia -Time 11:40 11:48 12:04 -Correct Patient Yes Yes Yes -Correct Side, Site, Position Yes Yes Yes -Correct Procedure Yes Yes Yes -Procedure Performed Yes Yes Yes -Type of Procedure Debridement Debridement Debridement -Clinical Debridement Subcutaneous Subcutaneous Subcutaneous -Tissue Removed Subcutaneous Subcutaneous Subcutaneous -Post Debridement (cm) - Length 4.2 4.5 6.2 -Post Debridement (cm) - Width 3.3 4 3.5 -Post Debridement (cm) - Depth 3.2 2.9 3.0 -Total Square (Post) (cm) 13.86 18.0 21.70 -Area of Debridement (cm) - Length 4.2 4.5 6.2 -Area of Debridement (cm) - Width 3.3 4 3.5 -Total Square (Area) (cm) 13.86 18.0 21.70 -Tunneling No No No -Undermining/Tunneling Yes Yes Yes -Undermining/Tunneling Starts (O'clock 12 12 1 ) -Undermining/Tunneling Ends (O'clock) 1 1 2 -Maximum Distance (cm) 5.1 4.3 2.7 -Circular Undermining No No No -Wound/Ulcer Outcome Not Healed Not Healed Not Healed -Ulcer Cleansing Rinsed/ Rinsed/ Rinsed/ Irrigated with Irrigated with Irrigated with Saline Saline Saline -Foul Odor after Cleansing No No No -Bioengineered Tissue Yes Yes Yes -Type of Bioengineered Tissue Epifix Mesh Epifix Mesh Epifix Mesh -Expiration Date 06/29/26 06/29/26 06/29/26 -Product Lot Number [id number] -Percent Used 100 100 100 -Lot number of Saline Used [id number] -Bleeding Controlled with Pressure Pressure Pressure -Offloading No No No -Treatment Response Procedure Procedure Procedure Tolerated Well Tolerated Well Tolerated Well -Debridement - Subq, 1st 20sq cm No No No -Apply Skin Sub - 1st 25 sq cm - Legs 1 1 1 -Epifix Mesh (per sq cm) 11 11 11 Pain Scale: 0-10 Numeric Is Patient Pain Free? Yes Yes Yes 11/25/21 15:08 Wound Center Nurse 2 6. R posterior labia -Time 15:08 -Correct Patient Yes -Correct Side, Site, Position Yes -Correct Procedure Yes -Procedure Performed Yes -Type of Procedure Debridement -Clinical Debridement Subcutaneous -Tissue Removed Subcutaneous -Post Debridement (cm) - Length 4.0 -Post Debridement (cm) - Width 3.5 -Post Debridement (cm) - Depth 2.7 -Total Square (Post) (cm) 14.00 -Area of Debridement (cm) - Length 4.0 -Area of Debridement (cm) - Width 3.5 -Total Square (Area) (cm) 14.00 -Tunneling No -Undermining/Tunneling Yes -Undermining/Tunneling Starts (O'clock 1 ) -Undermining/Tunneling Ends (O'clock) 2 -Maximum Distance (cm) 4.2 -Circular Undermining No -Wound/Ulcer Outcome Not Healed -Ulcer Cleansing Rinsed/ Irrigated with Saline -Foul Odor after Cleansing No -Bioengineered Tissue Yes -Type of Bioengineered Tissue Epifix Mesh -Expiration Date 07/30/26 -Product Lot Number [id number] -Percent Used 100 -Lot number of Saline Used [id number] -Bleeding Controlled with Pressure -Offloading No -Treatment Response Procedure Tolerated Well -Debridement - Subq, 1st 20sq cm No -Apply Skin Sub - 1st 25 sq cm - Legs 1 -Epifix Mesh (per sq cm) 11 Pain Scale: 0-10 Numeric Is Patient Pain Free? Yes - Nurse 3 - General Ulcer D/C NN Start: 10/31/21 11:14 Freq: Status: Active Protocol: Activity Type Activity Date Activity User E-Sign Co-Sign Detail Recorded Client Recorded Date Recorded By Document 10/31/21 12:29 RB [id number] 10/31/21 12:30 RB Document 11/07/21 12:36 RB [id number] 11/07/21 12:38 RB Document 11/14/21 13:10 RB [id number] 11/14/21 13:11 RB Document 11/25/21 15:40 DL [id number] 11/25/21 15:42 DL 10/31/21 11/07/21 11/14/21 12:29 12:36 13:10 Wound Care Nurse 3 6. R posterior labia -Ulcer Cleansing Wound Cleanser -Foul Odor after Cleansing -Negative Pressure Wound Therapy Continue Start Start -Setting (mmHg) 125 125 125 -Negative Pressure is Continuous Continuous Continuous -Other Dressing -NPWT Application Charge NPWT </= 50 sq NPWT </= 50 sq NPWT </= 50 sq cm ($) cm ($) cm ($) Janene-Wound Care Barrier Treatment Response Procedure Procedure Procedure Tolerated Well Tolerated Well Tolerated Well Pain Scale: 0-10 Numeric Is Patient Pain Free? Yes Yes Yes WC - Visit Discharge Discharge Condition Stable Stable Stable Ambulatory Status Wheelchair Wheelchair Wheelchair Transportation Private Auto Private Auto Private Auto Medication Reconcilliation completed & No No No provided to patient/care provider Clinical Summary of Care Provided Yes Yes Yes Facility Type Orders Sent 11/25/21 15:40 Wound Care Nurse 3 6. R posterior labia -Ulcer Cleansing -Foul Odor after Cleansing No -Negative Pressure Wound Therapy Continue -Setting (mmHg) 125 -Negative Pressure is Continuous -Other Dressing Epimesh -NPWT Application Charge NPWT </= 50 sq cm ($) Janene-Wound Care Treatment Response Procedure Tolerated Well Pain Scale: 0-10 Numeric Is Patient Pain Free? Yes WC - Visit Discharge Discharge Condition Stable Ambulatory Status Wheelchair Transportation Private Auto Medication Reconcilliation completed & provided to patient/care provider Clinical Summary of Care Provided Facility Type Assisted Care Facility Orders Sent Yes Assessment/Plan Assessment/Plan (1) Pressure injury of buttock, stage 4: CODE(S): L89.304 - Pressure ulcer of unspecified buttock, stage 4 QUALIFIERS: Laterality: right Qualified Code(s): L89.314 - Pressure ulcer of right buttock, stage 4 (2) Psoriasis: CODE(S): L40.9 - Psoriasis, unspecified (3) Multiple sclerosis: CODE(S): G35 - Multiple sclerosis (4) Debility: CODE(S): R53.81 - Other malaise PLAN: Zoey's ulcer was evaluated and debrided today at the wound healing center. Excisional debridement to expose the wound bed further and extend the outer border of the ulcer performed as above. Epifix applied today per recorder of deeds guidelines, covered with adaptic touch after rehydration with hydrogel. Wound vac reapplied at setting of 125 mmHg and will be changed on Wednesday and will continue at 125 mm Hg and then changed on Wednesday. Hold vac change until Wednesday12/01/20. She will continue ciprofloxacin. Gabapentin also refilled. Due to the poor progression of her ulcer, she would benefit from application of a skin substitute such as Epifix in order to heal her ulcer and hopefully avoid need for surgical treatment and closure with a skin flap or graft. Labs reveal adequate nutrition and otherwise were not significantly abnormal. Encouraged increased protein intake to support nutrition and optimize healing. Encouraged offloading of her right buttock/labia as much as possible in order to heal the ulcer. She and her were advised to call with any concerns or increased drainage, erythema or odor. She will return in 10 days for wound care.
== END 2021-11-28 23:59 ==
LOC: WC 14:30
PROVIDERS: PCP Family Medicine; Visit Provider Family Medicine
DX: L89.313 Pressure ulcer of right buttock, stage 3 (principal); G35 Multiple sclerosis; Z74.01 Bed confinement status; Z99.3 Dependence on wheelchair; L40.9 Psoriasis, unspecified
CPT/HCPCS: 15271; 97605; Q4186

== ENCOUNTER 2021-12-26 11:00 | Outpatient (RCR) | payer MEDICARE, SELFPAY ==
[2021-11-29 00:16] VITALS: BP 117/74; PULSE 90; RESP 20; TEMP 35.9; BMI 62.1
[2021-12-05 11:51] VITALS: BP 153/93; PULSE 82; TEMP 36.1; BMI 62.1
--- NOTE | 2021-12-05 16:16 | PN.PCM_ITS ---
History of Present Illness Date of Service: 12/05/21 Chief Complaint: Right posterior labial pressure sore, Stage III History of Wound: Zoey is a 66 yo female that is bed bound/wheelchair bound from complications of MS that presents to the wound healing center today for evaluation and treatment of a pressure ulcer of her right posterior labia that has been present since January 2021. She had been doing well but had a pressure ulcer of her right posterior labia develop in January 2021 after an abrasion from transferring after a shower. Her began applying Santyl and Aquacel Ag for several weeks and then Aquacel Ag alone for moderate drainage to the wound at that time and it was nearly healed until several weeks ago she was at a bridal shower and was out of bed for a longer period of time and the following day there was significant bruising to the area and it began to become larger and drain more. For the last 2 weeks he had returned to applying Santyl and Aquacel Extra to the wound but was not noticing significant improvement and called to be seen at the wound healing center. Her helps with her care and he reports that she has significant vaginal drainage for the last several months since she has been being treated with Estradiol for vaginal itching. She uses a tablet vaginally 3 times/week and her notes that there is copious clear-king vaginal discharge. She has a suprapubic catheter in place so it is not likely that it is urine that is leaking. He finds it very difficult to keep the wound dry due to this drainage. She has an upcoming appointment with her dental front office assistant on 07/16/2021 for recheck. She currently is not taking any antibiotics and she has not undergone any wound cultures of this ulcer. She denies fever, chills, nausea, vomiting or other systemic signs of infection. There is moderate to heavy drainage from the ulcer and they have been using Mepilix with border and Aquacel Ag and Santyl for the last 2 weeks. 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 Subjective Subjective Zoey's ulcer is somewhat improved. She no longer has necrotic tissue or slough at the base of the wound. Drainage is still heavy at times. She has had improvement in vaginal discharge since discontinuing the use of estradiol. She continues on ciprofloxacin. She was just on Azithromycin for bronchitis. She is having some diarrhea and requesting to decrease cipro. She does have development of a new area of pressure near her gluteal fold. They have been applying zinc oxide and gauze with minimal improvement. Objective Data Objective Data Vital Signs: Vital Signs Temp Pulse Resp BP 96.9 F L 82 20 H 153/93 H 12/05/21 11:51 12/05/21 11:51 11/29/21 00:16 12/05/21 11:51 Weight: 180 kg Body Mass Index (BMI) 62.1 Physical Exam Const alert, oriented x3 and no apparent distress General Appearance: cooperative and comfortable HEENT normocephalic and head/scalp atraumatic Resp normal respiratory effort Effort and Inspection: able to speak in complete sentences Extremity General Extremity: edema bilateral lower extremity Details: mild Skin General Skin Exam: venous stasis Wounds: wounds noted Wound Narrative: as in clincal panel Psych mental status grossly normal and thought process normal Debridement Note Debridement Note Wound debrided: right posterior labia Laterality: Right Wound Grade/Stage: Stage III Type of Debridement: Excisional debridement Anesthesia Used: 4% Lidocaine Solution Depth: Down to and including healthy tissue, in the subcutaneous layer and to muscle Percentage of wound debrided: 100 Instrument Used: 5mm curette Tissue Removed: Yellow slough, devitalized tissue Severity: Fat Layer Exposed Amount of bleeding with debridement: Mild Bleeding Controlled with: Compression and gauze Patient tolerated procedure: Patient tolerated procedure well Post-Debridement Measurements and Additional Note: Post-Debridement Measurements/Treatment - Nurse 1 - General Ulcer Assessment Start: 12/05/21 11:51 Freq: Status: Active Protocol: [email or web address] Activity Type Activity Date Activity User E-Sign Co-Sign Detail Recorded Client Recorded Date Recorded By Document 12/05/21 11:51 RAJESH [id number] 12/05/21 11:56 RAJESH 12/05/21 11:51 - Today's Visit Information Type of service Follow-up Visit (Physician/[employer] ENGINE[employer] ) Arrival Mode Wheelchair Transfer Assistance Doug Lift Transfer Assist (Other) Patient Identification Verified (Name & Yes ) Safety Precautions NA Height and Weight Body Mass Index (BMI) 62.1 BMI Classification Obese Vital Signs Temperature (97.8 F-99.1 F) 96.9 F L Temperature Source Temporal Pulse Rate (60-100) 82 Pulse Location Monitor Blood Pressure (90/60-120/80) 153/93 H Blood Pressure Mean (mm Hg) 113 Source Monitor History Since Last Visit- (Skip if this is Patient's initial visit) Have you changed medications since your No last visit? Any new allergies or adverse reactions No Had a fall/change in ADL's that may No increase risk of falls Signs or symptoms of abuse and/or No neglect since last visit Have you been in the hospital since your No last visit? Has dressing in place as prescribed Yes Has compression in place as prescribed N/A Has offloadiing in place as prescribed Yes Experienced any changes in pain level or No management Left Footwear Slipper Right Footwear Slipper WC - Nurse 1 - General Ulcer Measurement Start: 12/05/21 11:51 Freq: Status: Active Protocol: Activity Type Activity Date Activity User E-Sign Co-Sign Detail Recorded Client Recorded Date Recorded By Document 12/05/21 11:51 RAJESH [id number] 12/05/21 11:56 AK Document 12/05/21 11:57 AK [id number] 12/05/21 11:57 AK 12/05/21 12/05/21 11:51 11:57 Wound Center Nurse 1 #7 R buttock -Combined with other wound No -Current Size (cm) - Length 1.7 -Current Size (cm) - Width 1.1 -Current Size (cm) - Depth 0.1 -Total Square Cm 1.87 -Photo Taken No -Tunneling No -Tunneling Position (O'clock) 1 -Tunneling Distance (cm) 4.2 -Tunneling Position #2 (O'clock) 2 -Undermining/Tunneling No -Circular Undermining No -Classification - Thickness Partial Thickness -Change in Wound Grade/Stage No -Exudate Amt None Present -Wound Margin Flat & Intact -Granulation Amt None Present (0 %) -Granulation Quality N/A -Slough/Fibrin No -Necrosis Amt None Present (0 %) -Structure Exposed N/A -Texture (Janene-wound Skin Appearance) Assessed,Callus ,Rash -Moisture (Janene-wound Skin Appearance) No Abnormality, Assessed -Color (Janene-wound Skin Appearance) No Abnormality, Assessed -Temperature (Janene-wound Skin No Abnormality Appearance) (Pt Warm) -Tenderness on Palpation (Janene-wound Yes Skin Appearance) -Ulcer Cleansing Rinsed/ Irrigated with Saline -Foul Odor after Cleansing No -Anesthetic Used 4% Lidocaine Solution 6. R posterior labia -Combined with other wound No -Current Size (cm) - Length 3 -Current Size (cm) - Width 4 -Current Size (cm) - Depth 2 -Total Square Cm 12 -Photo Taken No -Tunneling No -Undermining/Tunneling No -Circular Undermining No -Change in Wound Grade/Stage No -Exudate Amt Medium -Exudate Type Serosanguineous -Wound Margin Distinct, Outline Attached -Granulation Amt Medium (34-66%) -Granulation Quality [place],Red -Slough/Fibrin No -Necrosis Amt None Present (0 %) -Texture (Janene-wound Skin Appearance) Assessed, Scarring,Rash -Moisture (Janene-wound Skin Appearance) No Abnormality, Assessed -Color (Janene-wound Skin Appearance) No Abnormality, Assessed -Temperature (Janene-wound Skin No Abnormality Appearance) (Pt Warm) -Tenderness on Palpation (Janene-wound Yes Skin Appearance) -Ulcer Cleansing Rinsed/ Irrigated with Saline -Foul Odor after Cleansing No -Anesthetic Used 4% Lidocaine Solution WC - Nurse 2 - General Ulcer CM Notes Start: 12/05/21 11:51 Freq: Status: Active Protocol: Activity Type Activity Date Activity User E-Sign Co-Sign Detail Recorded Client Recorded Date Recorded By Document 12/05/21 12:07 MW [id number] 12/05/21 12:36 MW 12/05/21 12:07 Wound Center Nurse 2 -Time 12:26 -Correct Patient Yes -Correct Side, Site, Position Yes -Correct Procedure Yes -Procedure Performed Yes -Type of Procedure Debridement -Clinical Debridement Subcutaneous -Tissue Removed Subcutaneous -Post Debridement (cm) - Length 1.9 -Post Debridement (cm) - Width 1.5 -Post Debridement (cm) - Depth 0.1 -Total Square (Post) (cm) 2.85 -Area of Debridement (cm) - Length 1.9 -Area of Debridement (cm) - Width 1.5 -Total Square (Area) (cm) 2.85 -Tunneling No -Undermining/Tunneling No -Circular Undermining No -Wound/Ulcer Outcome Not Healed -Ulcer Cleansing Rinsed/ Irrigated with Saline -Foul Odor after Cleansing No -Bioengineered Tissue No -Bleeding Controlled with Pressure -Offloading No -Treatment Response Procedure Tolerated Well -Debridement - Subq, 1st 20sq cm Yes 6. R posterior labia -Time 12:32 -Correct Patient Yes -Correct Side, Site, Position Yes -Correct Procedure Yes -Procedure Performed Yes -Type of Procedure Debridement -Clinical Debridement Subcutaneous -Tissue Removed Subcutaneous -Post Debridement (cm) - Length 4.0 -Post Debridement (cm) - Width 3.5 -Post Debridement (cm) - Depth 2.1 -Total Square (Post) (cm) 14.00 -Area of Debridement (cm) - Length 4.0 -Area of Debridement (cm) - Width 3.5 -Total Square (Area) (cm) 14.00 -Tunneling No -Undermining/Tunneling No -Circular Undermining No -Wound/Ulcer Outcome Not Healed -Ulcer Cleansing Rinsed/ Irrigated with Saline -Foul Odor after Cleansing No -Bioengineered Tissue Yes -Type of Bioengineered Tissue Epifix Mesh -Expiration Date 07/30/26 -Product Lot Number [id number] -Percent Used 100 -Lot number of Saline Used [id number] -Bleeding Controlled with Pressure -Offloading No -Treatment Response Procedure Tolerated Well -Debridement - Subq, 1st 20sq cm No -Apply Skin Sub - 1st 25 sq cm - Legs 1 -Epifix Mesh (per sq cm) 11 Pain Scale: 0-10 Numeric Is Patient Pain Free? Yes WC - Nurse 3 - General Ulcer D/C NN Start: 12/05/21 11:51 Freq: Status: Active Protocol: Activity Type Activity Date Activity User E-Sign Co-Sign Detail Recorded Client Recorded Date Recorded By Document 12/05/21 12:53 DL [id number] 12/05/21 12:55 DL 12/05/21 12:53 Wound Care Nurse 3 #7 R buttock -Ulcer Cleansing Rinsed/ Irrigated with Saline -Foul Odor after Cleansing No -Primary Dressing Applied Mepilex Border, Promogran Rony Matter -Mepilex Border 1 -Promogran Rony Matter 1 6. R posterior labia -Ulcer Cleansing Wound Cleanser -Foul Odor after Cleansing No -Negative Pressure Wound Therapy Continue -Setting (mmHg) 125 -Negative Pressure is Continuous -NPWT Application Charge NPWT </= 50 sq cm ($) Treatment Response Procedure Tolerated Well Pain Scale: 0-10 Numeric Is Patient Pain Free? Yes WC - Visit Discharge Discharge Condition Stable Ambulatory Status Wheelchair Transportation Private [facility] Facility Type Home Health Orders Sent Yes Additional Wound Wound debrided: right buttock Laterality: Right Wound Grade/Stage: Stage 2 Type of Debridement: Selective debridement Anesthesia Used: 4% Lidocaine Solution Depth: Down to and including healthy tissue and in the subcutaneous layer Percentage of wound debrided: 100 Instrument Used: - (gauze) Tissue Removed: Yellow slough, devitalized tissue Severity: Fat Layer Exposed Amount of bleeding with debridement: Mild Bleeding Controlled with: Compression and gauze Patient tolerated procedure: Patient tolerated procedure well Assessment/Plan Assessment/Plan (1) Decubitus ulcer of coccygeal region, stage 2: CODE(S): L89.152 - Pressure ulcer of sacral region, stage 2 (2) Debility: CODE(S): R53.81 - Other malaise (3) Multiple sclerosis: CODE(S): G35 - Multiple sclerosis (4) Psoriasis: CODE(S): L40.9 - Psoriasis, unspecified (5) Pressure injury of buttock, stage 4: CODE(S): L89.304 - Pressure ulcer of unspecified buttock, stage 4 QUALIFIERS: Laterality: right Qualified Code(s): L89.314 - Pressure ulcer of right buttock, stage 4 PLAN: Zoey's ulcer was evaluated and debrided today at the wound healing center. Her new ulcer was evaluated and debrided as well. Ulcer of right buttock/gluteal fold will be dressed with rony for mild drainage and covered with optifoam silicone dressing to be changed every other day. Wound culture taken. Will treat based on results. Epifix applied today per cargo station worker guidelines, covered with adaptic touch after rehydration with hydrogel. Wound vac reapplied at setting of 125 mmHg and will be changed on Wednesday. Hold vac change on Wednesday12/08/21. She will continue ciprofloxacin but decrease to once daily. Gabapentin continued. Due to the poor progression of her ulcer, she would benefit from application of a skin substitute such as Epifix in order to heal her ulcer and hopefully avoid need for surgical treatment and closure with a skin flap or graft. Labs reveal adequate nutrition and otherwise were not significantly abnormal. Encouraged increased protein intake to support nutrition and optimize healing. Encouraged offloading of her right buttock/labia as much as possible in order to heal the ulcer. She and her were advised to call with any concerns or increased drainage, erythema or odor. She will return in 1 week for wound care.
[2021-12-12 11:04] VITALS: BP 142/88; PULSE 89; RESP 18; TEMP 35.5; BMI 62.1
--- NOTE | 2021-12-12 12:36 | PCM.WC.PN ---
History of Present Illness Date of Service: 12/12/21 Chief Complaint: Right posterior labial pressure sore, Stage III History of Wound: Zoey is a 66 yo female that is bed bound/wheelchair bound from complications of MS that presents to the wound healing center today for evaluation and treatment of a pressure ulcer of her right posterior labia that has been present since January 2021. She had been doing well but had a pressure ulcer of her right posterior labia develop in January 2021 after an abrasion from transferring after a shower. Her began applying Santyl and Aquacel Ag for several weeks and then Aquacel Ag alone for moderate drainage to the wound at that time and it was nearly healed until several weeks ago she was at a bridal shower and was out of bed for a longer period of time and the following day there was significant bruising to the area and it began to become larger and drain more. For the last 2 weeks he had returned to applying Santyl and Aquacel Extra to the wound but was not noticing significant improvement and called to be seen at the wound healing center. Her helps with her care and he reports that she has significant vaginal drainage for the last several months since she has been being treated with Estradiol for vaginal itching. She uses a tablet vaginally 3 times/week and her notes that there is copious clear-king vaginal discharge. She has a suprapubic catheter in place so it is not likely that it is urine that is leaking. He finds it very difficult to keep the wound dry due to this drainage. She has an upcoming appointment with her vibrator equipment tester on 07/16/2021 for recheck. She currently is not taking any antibiotics and she has not undergone any wound cultures of this ulcer. She denies fever, chills, nausea, vomiting or other systemic signs of infection. There is moderate to heavy drainage from the ulcer and they have been using Mepilix with border and Aquacel Ag and Santyl for the last 2 weeks. 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 Subjective Subjective Zoey's ulcer is somewhat improved. She no longer has necrotic tissue or slough at the base of the wound. Drainage is still heavy at times. She has had improvement in vaginal discharge since discontinuing the use of estradiol. She continues on ciprofloxacin. She is having some diarrhea and requesting to decrease cipro to once daily. The newer pressure ulcer near her gluteal fold is improved overall. Gema is frustrated with the slow progress and is wondering if there is anything additional that can be done medically or that she may be able to do herself. Objective Data Objective Data Vital Signs: Vital Signs Temp Pulse Resp BP 96 F L 89 18 142/88 H 12/12/21 11:04 12/12/21 11:04 12/12/21 11:04 12/12/21 11:04 Weight: 180 kg Body Mass Index (BMI) 62.1 Lab / Micro Data Micro: Microbiology 12/05/21 12:15 Tissue Ulcer - Buttock Gram Stain - Final 12/05/21 12:15 Tissue Ulcer - Buttock Wound Culture - Final Lactococcus garvieae Staphylococcus epidermidis 12/05/21 12:15 Tissue Ulcer - Buttock Anaerobic Culture - Final No anaerobic bacteria isolated. Physical Exam Const alert, oriented x3 and no apparent distress General Appearance: cooperative and comfortable HEENT normocephalic and head/scalp atraumatic Resp normal respiratory effort Effort and Inspection: able to speak in complete sentences Extremity General Extremity: edema bilateral lower extremity Details: mild Skin General Skin Exam: venous stasis Wounds: wounds noted Wound Narrative: as in clincal panel Psych mental status grossly normal and thought process normal Debridement Note Debridement Note Wound debrided: right buttock Laterality: Right Wound Grade/Stage: Stage II Type of Debridement: Excisional debridement Anesthesia Used: 4% Lidocaine Solution Depth: Down to and including healthy tissue and in the subcutaneous layer Percentage of wound debrided: 100 Instrument Used: #15 blade and Forceps Tissue Removed: Yellow slough, devitalized tissue Severity: Fat Layer Exposed Amount of bleeding with debridement: Mild Bleeding Controlled with: Compression and gauze Patient tolerated procedure: Patient tolerated procedure well Post-Debridement Measurements and Additional Note: Post-Debridement Measurements/Treatment WC - Nurse 1 - General Ulcer Assessment Start: 12/05/21 11:51 Freq: Status: Active Protocol: LINK Activity Type Activity Date Activity User E-Sign Co-Sign Detail Recorded Client Recorded Date Recorded By Document 12/05/21 11:51 AK [id number] 12/05/21 11:56 AK Document 12/12/21 11:04 RB [id number] 12/12/21 11:13 RB 12/05/21 12/12/21 11:51 11:04 - Today's Visit Information Type of service Follow-up Visit Follow-up Visit (Physician/EXTRUSION DIE REPAIR MANAGER (Physician/EXTRUSION DIE REPAIR MANAGER ) ) Arrival Mode Wheelchair Wheelchair Transfer Assistance Doug Lift Doug Lift Transfer Assist (Other) Patient Identification Verified (Name & Yes Yes ) Safety Precautions NA Height and Weight Body Mass Index (BMI) 62.1 62.1 BMI Classification Obese Obese Vital Signs Temperature (97.8 F-99.1 F) 96.9 F L 96 F L Temperature Source Temporal Temporal Pulse Rate (60-100) 82 89 Pulse Location Monitor Monitor Respiratory Rate (12-18) 18 Respiratory rate source Observation Blood Pressure (90/60-120/80) 153/93 H 142/88 H Blood Pressure Mean (mm Hg) 113 106 Source Monitor Monitor Position Sitting Blood Pressure Location Left Arm History Since Last Visit- (Skip if this is Patient's initial visit) Have you changed medications since your No No last visit? Any new allergies or adverse reactions No No Had a fall/change in ADL's that may No No increase risk of falls Signs or symptoms of abuse and/or No No neglect since last visit Have you been in the hospital since your No No last visit? Has dressing in place as prescribed Yes Yes Has compression in place as prescribed N/A No Has offloadiing in place as prescribed Yes No Experienced any changes in pain level or No No management Left Footwear Slipper Right Footwear Slipper Pain Scale: 0-10 Numeric Is Patient Pain Free? Yes - Nurse 1 - General Ulcer Measurement Start: 12/05/21 11:51 Freq: Status: Active Protocol: Activity Type Activity Date Activity User E-Sign Co-Sign Detail Recorded Client Recorded Date Recorded By Document 12/05/21 11:51 AK [id number] 12/05/21 11:56 AK Document 12/05/21 11:57 AK [id number] 12/05/21 11:57 AK Document 12/12/21 11:04 RB [id number] 12/12/21 11:13 RB 12/05/21 12/05/21 12/12/21 11:51 11:57 11:04 Wound Center Nurse 1 #7 R buttock -Combined with other wound No No -Current Size (cm) - Length 1.7 0.3 -Current Size (cm) - Width 1.1 0.2 -Current Size (cm) - Depth 0.1 0.1 -Total Square Cm 1.87 0.06 -Photo Taken No -Tunneling No No -Tunneling Position (O'clock) 1 -Tunneling Distance (cm) 4.2 -Tunneling Position #2 (O'clock) 2 -Undermining/Tunneling No No -Circular Undermining No No -Classification - Thickness Partial Thickness -Change in Wound Grade/Stage No -Exudate Amt None Present Small -Exudate Type Serosanguineous -Wound Margin Flat & Intact Distinct, Outline Attached -Granulation Amt None Present (0 Medium (34-66%) %) -Granulation Quality N/A Corona -Slough/Fibrin No Yes -Necrosis Amt None Present (0 Medium (34-66%) %) -Necrotic Tissue Type Adherent Slough -Structure Exposed N/A N/A -Texture (Janene-wound Skin Appearance) Assessed,Callus Assessed, ,Rash Scarring -Moisture (Janene-wound Skin Appearance) No Abnormality, Assessed Assessed -Color (Janene-wound Skin Appearance) No Abnormality, Assessed Assessed -Temperature (Janene-wound Skin No Abnormality No Abnormality Appearance) (Pt Warm) (Pt Warm) -Tenderness on Palpation (Janene-wound Yes No Skin Appearance) -Ulcer Cleansing Rinsed/ Wound Cleanser Irrigated with Saline -Foul Odor after Cleansing No No -Anesthetic Used 4% Lidocaine 5% Lidocaine Solution Gel 6. R posterior labia -Combined with other wound No -Current Size (cm) - Length 3 3.5 -Current Size (cm) - Width 4 5 -Current Size (cm) - Depth 2 2.5 -Total Square Cm 12 17.5 -Photo Taken No -Tunneling No No -Undermining/Tunneling No Yes -Undermining/Tunneling Starts (O'clock 10 ) -Undermining/Tunneling Ends (O'clock) 2 -Maximum Distance (cm) 4.9 -Circular Undermining No -Change in Wound Grade/Stage No -Exudate Amt Medium Large -Exudate Type Serosanguineous Serosanguineous -Wound Margin Distinct, Thickened & Outline Rolled Under Attached -Granulation Amt Medium (34-66%) Large (67-100%) -Granulation Quality Corona,Red Corona -Slough/Fibrin No Yes -Necrosis Amt None Present (0 Small (1-33%) %) -Necrotic Tissue Type Adherent Slough -Structure Exposed N/A -Texture (Janene-wound Skin Appearance) Assessed, Assessed, Scarring,Rash Scarring -Moisture (Janene-wound Skin Appearance) No Abnormality, Assessed Assessed -Color (Janene-wound Skin Appearance) No Abnormality, Assessed Assessed -Temperature (Janene-wound Skin No Abnormality No Abnormality Appearance) (Pt Warm) (Pt Warm) -Tenderness on Palpation (Janene-wound Yes No Skin Appearance) -Ulcer Cleansing Rinsed/ Wound Cleanser Irrigated with Saline -Foul Odor after Cleansing No No -Anesthetic Used 4% Lidocaine 4% Lidocaine Solution Solution,5% Lidocaine Gel WC - Nurse 2 - General Ulcer CM Notes Start: 12/05/21 11:51 Freq: Status: Active Protocol: Activity Type Activity Date Activity User E-Sign Co-Sign Detail Recorded Client Recorded Date Recorded By Document 12/05/21 12:07 MW [id number] 12/05/21 12:36 MW Document 12/12/21 11:11 MW [id number] 12/12/21 11:55 MW 12/05/21 12/12/21 12:07 11:11 Wound Center Nurse 2 #7 R buttock -Time 12:26 11:11 -Correct Patient Yes Yes -Correct Side, Site, Position Yes Yes -Correct Procedure Yes Yes -Procedure Performed Yes Yes -Type of Procedure Debridement Debridement -Clinical Debridement Subcutaneous Subcutaneous -Tissue Removed Subcutaneous -Post Debridement (cm) - Length 1.9 0.7 -Post Debridement (cm) - Width 1.5 0.5 -Post Debridement (cm) - Depth 0.1 0.1 -Total Square (Post) (cm) 2.85 0.35 -Area of Debridement (cm) - Length 1.9 0.7 -Area of Debridement (cm) - Width 1.5 0.5 -Total Square (Area) (cm) 2.85 0.35 -Tunneling No No -Undermining/Tunneling No No -Circular Undermining No No -Wound/Ulcer Outcome Not Healed Not Healed -Ulcer Cleansing Rinsed/ Rinsed/ Irrigated with Irrigated with Saline Saline -Foul Odor after Cleansing No No -Bioengineered Tissue No No -Bleeding Controlled with Pressure Pressure -Offloading No No -Treatment Response Procedure Procedure Tolerated Well Tolerated Well -Debridement - Subq, 1st 20sq cm Yes Yes 6. R posterior labia -Time 12:32 11:12 -Correct Patient Yes Yes -Correct Side, Site, Position Yes Yes -Correct Procedure Yes Yes -Procedure Performed Yes Yes -Type of Procedure Debridement Debridement -Clinical Debridement Subcutaneous Subcutaneous -Tissue Removed Subcutaneous Subcutaneous -Post Debridement (cm) - Length 4.0 3.5 -Post Debridement (cm) - Width 3.5 2.8 -Post Debridement (cm) - Depth 2.1 2.2 -Total Square (Post) (cm) 14.00 9.80 -Area of Debridement (cm) - Length 4.0 3.5 -Area of Debridement (cm) - Width 3.5 2.8 -Total Square (Area) (cm) 14.00 9.80 -Tunneling No Yes -Undermining/Tunneling No Yes -Undermining/Tunneling Starts (O'clock 1 ) -Undermining/Tunneling Ends (O'clock) 2 -Maximum Distance (cm) 3.9 -Circular Undermining No No -Wound/Ulcer Outcome Not Healed Not Healed -Ulcer Cleansing Rinsed/ Rinsed/ Irrigated with Irrigated with Saline Saline -Foul Odor after Cleansing No No -Bioengineered Tissue Yes Yes -Type of Bioengineered Tissue Epifix Mesh Epifix Mesh -Expiration Date 07/30/26 07/30/26 -Product Lot Number [id number] -Percent Used 100 100 -Lot number of Saline Used [id number] -Bleeding Controlled with Pressure Pressure -Offloading No No -Treatment Response Procedure Procedure Tolerated Well Tolerated Well -Debridement - Subq, 1st 20sq cm No No -Apply Skin Sub - 1st 25 sq cm - Legs 1 1 -Epifix Mesh (per sq cm) 11 11 Pain Scale: 0-10 Numeric Is Patient Pain Free? Yes Yes WC - Nurse 3 - General Ulcer D/C NN Start: 12/05/21 11:51 Freq: Status: Active Protocol: Activity Type Activity Date Activity User E-Sign Co-Sign Detail Recorded Client Recorded Date Recorded By Document 12/05/21 12:53 DL [id number] 12/05/21 12:55 DL 12/05/21 12:53 Wound Care Nurse 3 #7 R buttock -Ulcer Cleansing Rinsed/ Irrigated with Saline -Foul Odor after Cleansing No -Primary Dressing Applied Mepilex Border, Promogran Rony Matter -Mepilex Border 1 -Promogran Rony Matter 1 6. R posterior labia -Ulcer Cleansing Wound Cleanser -Foul Odor after Cleansing No -Negative Pressure Wound Therapy Continue -Setting (mmHg) 125 -Negative Pressure is Continuous -NPWT Application Charge NPWT </= 50 sq cm ($) Treatment Response Procedure Tolerated Well Pain Scale: 0-10 Numeric Is Patient Pain Free? Yes WC - Visit Discharge Discharge Condition Stable Ambulatory Status Wheelchair Transportation Private Auto Facility Type Home Health Orders Sent Yes Additional Wound Wound debrided: right posterior labia Laterality: Right Wound Grade/Stage: Stage IV Type of Debridement: Excisional debridement Anesthesia Used: 4% Lidocaine Solution Depth: Down to and including healthy tissue, in the subcutaneous layer and to muscle Percentage of wound debrided: 100 Instrument Used: 5mm curette Tissue Removed: Yellow slough, devitalized tissue Severity: Fat Layer Exposed Amount of bleeding with debridement: Mild Bleeding Controlled with: Compression and gauze Patient tolerated procedure: Patient tolerated procedure well Assessment/Plan Assessment/Plan (1) Decubitus ulcer of coccygeal region, stage 2: CODE(S): L89.152 - Pressure ulcer of sacral region, stage 2 (2) Debility: CODE(S): R53.81 - Other malaise (3) Multiple sclerosis: CODE(S): G35 - Multiple sclerosis (4) Psoriasis: CODE(S): L40.9 - Psoriasis, unspecified (5) Pressure injury of buttock, stage 4: CODE(S): L89.304 - Pressure ulcer of unspecified buttock, stage 4 QUALIFIERS: Laterality: right Qualified Code(s): L89.314 - Pressure ulcer of right buttock, stage 4 (6) Complete paraplegia: CODE(S): G82.21 - Paraplegia, complete (7) Bed confinement status: CODE(S): Z74.01 - Bed confinement status PLAN: Zoey's ulcers were evaluated and debrided today at the wound healing center. Ulcer of right buttock/gluteal fold will be dressed with rony for mild drainage and covered with optifoam silicone dressing to be changed every other day. Wound culture showed staph epidermidis. Clinically ulcer is improved. Will hold on antibiotic treatment at this time. Epifix applied today per certified surgical first assistant guidelines, covered with adaptic touch after rehydration with hydrogel and secured with steri-strips. Wound vac will be held this week. Ulcer will be dressed with secondary dressings over the adaptic touch of Aquacel extra packed into the ulcer cavity and covered with gauze and ABD. She will continue ciprofloxacin but decreased to once daily. Gabapentin continued. Due to the poor progression of her ulcer, she would benefit from application of a skin substitute such as Epifix in order to heal her ulcer and hopefully avoid need for surgical treatment and closure with a skin flap or graft. Labs reveal adequate nutrition and otherwise were not significantly abnormal. Will recheck labs. Encouraged increased protein intake to support nutrition and optimize healing. Encouraged offloading of her right buttock/labia as much as possible in order to heal the ulcer. Discussed benefit of alternating pressure mattress as she is spending 98% of the day in bed in order to avoid pressure to the ulcer and promote wound healing. Alternating pressure mattress is medically necessary given that she is unable to adjust herself and it is becoming more difficult for her to continually move her and offload her to prevent ulcers and heal her current ulcer. She and her were advised to call with any concerns or increased drainage, erythema or odor. She will return in 1 week for wound care.
--- NOTE | 2021-12-16 09:24 | WC ---
Received a call from patient Shelia Purcell. He stated adaptic and steri strips came off right posterior labia wound. Home health nurse was there this AM and packed with saline wet to dry due to has not received supplies yet. Called [facility] to check on status of supplies that were ordered 12/13/21. [facility] Rep Stated pending insurance approval. Courtesy order was shipped on Wednesday per [facility] and is to be delivered to patient home today. Dr. Schroeder notified of dressing falling off and packed with wet to dry. Stated home health can initiate wound vac again if patient wants to. Patient notified of supply order coming today and informed that Dr. Schroeder was okay with wound vac. Patient stated wants to continue to hold wound vac this week until her appt on Wednesday.
--- NOTE | 2021-12-19 11:24 | WC ---
Right inner thigh skin intact but eccomotic area noted . pt noticed area on Wednesday.
[2021-12-19 11:26] VITALS: BP 130/77; PULSE 88; RESP 18; TEMP 35.7; BMI 62.1
--- NOTE | 2021-12-19 13:13 | PCM.WC.PN ---
History of Present Illness Date of Service: 12/19/21 Chief Complaint: Right posterior labial pressure sore, Stage III History of Wound: Zoey is a 66 yo female that is bed bound/wheelchair bound from complications of MS that presents to the wound healing center today for evaluation and treatment of a pressure ulcer of her right posterior labia that has been present since January 2021. She had been doing well but had a pressure ulcer of her right posterior labia develop in January 2021 after an abrasion from transferring after a shower. Her began applying Santyl and Aquacel Ag for several weeks and then Aquacel Ag alone for moderate drainage to the wound at that time and it was nearly healed until several weeks ago she was at a bridal shower and was out of bed for a longer period of time and the following day there was significant bruising to the area and it began to become larger and drain more. For the last 2 weeks he had returned to applying Santyl and Aquacel Extra to the wound but was not noticing significant improvement and called to be seen at the wound healing center. Her helps with her care and he reports that she has significant vaginal drainage for the last several months since she has been being treated with Estradiol for vaginal itching. She uses a tablet vaginally 3 times/week and her notes that there is copious clear-king vaginal discharge. She has a suprapubic catheter in place so it is not likely that it is urine that is leaking. He finds it very difficult to keep the wound dry due to this drainage. She has an upcoming appointment with her therapist on 07/16/2021 for recheck. She currently is not taking any antibiotics and she has not undergone any wound cultures of this ulcer. She denies fever, chills, nausea, vomiting or other systemic signs of infection. There is moderate to heavy drainage from the ulcer and they have been using Mepilix with border and Aquacel Ag and Santyl for the last 2 weeks. 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 Objective Data Objective Data Vital Signs: Vital Signs Temp Pulse Resp BP 96.2 F L 88 18 130/77 H 12/19/21 11:26 12/19/21 11:26 12/19/21 11:26 12/19/21 11:26 Weight: 180 kg Body Mass Index (BMI) 62.1 Lab / Micro Data Micro: Microbiology 12/05/21 12:15 Tissue Ulcer - Buttock Gram Stain - Final 12/05/21 12:15 Tissue Ulcer - Buttock Wound Culture - Final Lactococcus garvieae Staphylococcus epidermidis 12/05/21 12:15 Tissue Ulcer - Buttock Anaerobic Culture - Final No anaerobic bacteria isolated. Physical Exam Const alert, oriented x3 and no apparent distress General Appearance: cooperative and comfortable HEENT normocephalic and head/scalp atraumatic Resp normal respiratory effort Effort and Inspection: able to speak in complete sentences Extremity General Extremity: edema bilateral lower extremity Details: mild Skin General Skin Exam: venous stasis Wounds: wounds noted Wound Narrative: as in clincal panel Psych mental status grossly normal and thought process normal Debridement Note Debridement Note Wound debrided: right posterior labia Laterality: Right Wound Grade/Stage: Stage III Type of Debridement: Excisional debridement Anesthesia Used: 4% Lidocaine Solution and 5% Lidocaine Gel Depth: Down to and including healthy tissue and in the subcutaneous layer Percentage of wound debrided: 100 Instrument Used: 5mm curette Tissue Removed: Yellow slough, devitalized tissue Severity: Fat Layer Exposed Amount of bleeding with debridement: Mild Bleeding Controlled with: Compression and gauze Patient tolerated procedure: Patient tolerated procedure well Post-Debridement Measurements and Additional Note: Post-Debridement Measurements/Treatment WC - Nurse 1 - General Ulcer Assessment Start: 12/05/21 11:51 Freq: Status: Active Protocol: LINK Activity Type Activity Date Activity User E-Sign Co-Sign Detail Recorded Client Recorded Date Recorded By Document 12/05/21 11:51 AK [id number] 12/05/21 11:56 AK Document 12/12/21 11:04 RB [id number] 12/12/21 11:13 RB Document 12/19/21 11:26 DL [id number] 12/19/21 11:28 DL 12/05/21 12/12/21 12/19/21 11:51 11:04 11:26 - Today's Visit Information Type of service Follow-up Visit Follow-up Visit Follow-up Visit (Physician/SOCIAL MEDIA COMMUNITY MANAGER (Physician/SOCIAL MEDIA COMMUNITY MANAGER (Physician/SOCIAL MEDIA COMMUNITY MANAGER ) ) ) Arrival Mode Wheelchair Wheelchair Ambulatory Transfer Assistance Doug Lift Doug Lift None Transfer Assist (Other) Patient Identification Verified (Name & Yes Yes Yes ) Patient Requires Transmission-Based No Precautions Safety Precautions NA Height and Weight Body Mass Index (BMI) 62.1 62.1 62.1 BMI Classification Obese Obese Obese Vital Signs Temperature (97.8 F-99.1 F) 96.9 F L 96 F L 96.2 F L Temperature Source Temporal Temporal Temporal Pulse Rate (60-100) 82 89 88 Pulse Location Monitor Monitor Monitor Respiratory Rate (12-18) 18 18 Respiratory rate source Observation Observation Blood Pressure (90/60-120/80) 153/93 H 142/88 H 130/77 H Blood Pressure Mean (mm Hg) 113 106 94 Source Monitor Monitor Monitor Position Sitting Semi-Fowlers Blood Pressure Location Left Arm Left Arm History Since Last Visit- (Skip if this is Patient's initial visit) Have you changed medications since your No No No last visit? Any new allergies or adverse reactions No No No Had a fall/change in ADL's that may No No No increase risk of falls Signs or symptoms of abuse and/or No No No neglect since last visit Have you been in the hospital since your No No No last visit? Has dressing in place as prescribed Yes Yes Yes Has compression in place as prescribed N/A No No Has offloadiing in place as prescribed Yes No Yes Experienced any changes in pain level or No No No management Left Footwear Slipper Slipper Right Footwear Slipper Regular Shoe Pain Scale: 0-10 Numeric Is Patient Pain Free? Yes Yes WC - Nurse 1 - General Ulcer Measurement Start: 12/05/21 11:51 Freq: Status: Active Protocol: Activity Type Activity Date Activity User E-Sign Co-Sign Detail Recorded Client Recorded Date Recorded By Document 12/05/21 11:51 AK [id number] 12/05/21 11:56 AK Document 12/05/21 11:57 AK [id number] 12/05/21 11:57 AK Document 12/12/21 11:04 RB [id number] 12/12/21 11:13 RB Document 12/19/21 11:20 DL [id number] 12/19/21 11:26 DL 12/05/21 12/05/21 12/12/21 11:51 11:57 11:04 Wound Center Nurse 1 #7 R buttock -Combined with other wound No No -Current Size (cm) - Length 1.7 0.3 -Current Size (cm) - Width 1.1 0.2 -Current Size (cm) - Depth 0.1 0.1 -Total Square Cm 1.87 0.06 -Photo Taken No -Tunneling No No -Tunneling Position (O'clock) 1 -Tunneling Distance (cm) 4.2 -Tunneling Position #2 (O'clock) 2 -Undermining/Tunneling No No -Circular Undermining No No -Classification - Thickness Partial Thickness -Change in Wound Grade/Stage No -Exudate Amt None Present Small -Exudate Type Serosanguineous -Wound Margin Flat & Intact Distinct, Outline Attached -Granulation Amt None Present (0 Medium (34-66%) %) -Granulation Quality N/A [place] -Slough/Fibrin No Yes -Necrosis Amt None Present (0 Medium (34-66%) %) -Necrotic Tissue Type Adherent Slough -Structure Exposed N/A N/A -Texture (Janene-wound Skin Appearance) Assessed,Callus Assessed, ,Rash Scarring -Moisture (Janene-wound Skin Appearance) No Abnormality, Assessed Assessed -Color (Janene-wound Skin Appearance) No Abnormality, Assessed Assessed -Temperature (Janene-wound Skin No Abnormality No Abnormality Appearance) (Pt Warm) (Pt Warm) -Tenderness on Palpation (Janene-wound Yes No Skin Appearance) -Ulcer Cleansing Rinsed/ Wound Cleanser Irrigated with Saline -Foul Odor after Cleansing No No -Anesthetic Used 4% Lidocaine 5% Lidocaine Solution Gel 6. R posterior labia -Combined with other wound No -Current Size (cm) - Length 3 3.5 -Current Size (cm) - Width 4 5 -Current Size (cm) - Depth 2 2.5 -Total Square Cm 12 17.5 -Photo Taken No -Tunneling No No -Undermining/Tunneling No Yes -Undermining/Tunneling Starts (O'clock 10 ) -Undermining/Tunneling Ends (O'clock) 2 -Maximum Distance (cm) 4.9 -Circular Undermining No -Change in Wound Grade/Stage No -Exudate Amt Medium Large -Exudate Type Serosanguineous Serosanguineous -Wound Margin Distinct, Thickened & Outline Rolled Under Attached -Granulation Amt Medium (34-66%) Large (67-100%) -Granulation Quality [place],Red [place] -Slough/Fibrin No Yes -Necrosis Amt None Present (0 Small (1-33%) %) -Necrotic Tissue Type Adherent Slough -Structure Exposed N/A -Texture (Janene-wound Skin Appearance) Assessed, Assessed, Scarring,Rash Scarring -Moisture (Janene-wound Skin Appearance) No Abnormality, Assessed Assessed -Color (Janene-wound Skin Appearance) No Abnormality, Assessed Assessed -Temperature (Janene-wound Skin No Abnormality No Abnormality Appearance) (Pt Warm) (Pt Warm) -Tenderness on Palpation (Janene-wound Yes No Skin Appearance) -Ulcer Cleansing Rinsed/ Wound Cleanser Irrigated with Saline -Foul Odor after Cleansing No No -Anesthetic Used 4% Lidocaine 4% Lidocaine Solution Solution,5% Lidocaine Gel 12/19/21 11:20 Wound Center Nurse 1 #7 R buttock -Combined with other wound No -Current Size (cm) - Length 0.7 -Current Size (cm) - Width 0.5 -Current Size (cm) - Depth 0.1 -Total Square Cm 0.35 -Photo Taken -Tunneling No -Tunneling Position (O'clock) -Tunneling Distance (cm) -Tunneling Position #2 (O'clock) -Undermining/Tunneling No -Circular Undermining No -Classification - Thickness -Change in Wound Grade/Stage -Exudate Amt Medium -Exudate Type Serosanguineous -Wound Margin Distinct, Outline Attached -Granulation Amt Medium (34-66%) -Granulation Quality [place] -Slough/Fibrin Yes -Necrosis Amt Small (1-33%) -Necrotic Tissue Type Adherent Slough -Structure Exposed N/A -Texture (Janene-wound Skin Appearance) Assessed, Scarring -Moisture (Janene-wound Skin Appearance) Assessed -Color (Janene-wound Skin Appearance) Assessed -Temperature (Janene-wound Skin No Abnormality Appearance) (Pt Warm) -Tenderness on Palpation (Janene-wound No Skin Appearance) -Ulcer Cleansing Wound Cleanser -Foul Odor after Cleansing No -Anesthetic Used 4% Lidocaine Solution 6. R posterior labia -Combined with other wound No -Current Size (cm) - Length 4 -Current Size (cm) - Width 3 -Current Size (cm) - Depth 2.7 -Total Square Cm 12 -Photo Taken -Tunneling No -Undermining/Tunneling No -Undermining/Tunneling Starts (O'clock ) -Undermining/Tunneling Ends (O'clock) -Maximum Distance (cm) -Circular Undermining No -Change in Wound Grade/Stage -Exudate Amt Large -Exudate Type Serosanguineous -Wound Margin Thickened & Rolled Under -Granulation Amt Medium (34-66%) -Granulation Quality [place],Red -Slough/Fibrin Yes -Necrosis Amt Medium (34-66%) -Necrotic Tissue Type Adherent Slough -Structure Exposed N/A -Texture (Janene-wound Skin Appearance) Assessed, Scarring -Moisture (Janene-wound Skin Appearance) Assessed -Color (Janene-wound Skin Appearance) Assessed -Temperature (Janene-wound Skin No Abnormality Appearance) (Pt Warm) -Tenderness on Palpation (Janene-wound No Skin Appearance) -Ulcer Cleansing Wound Cleanser -Foul Odor after Cleansing No -Anesthetic Used 4% Lidocaine Solution 12/19/21 11:24 Wound Center by Michaela Xiao Right inner thigh skin intact but eccomotic area noted . pt noticed area on Wednesday. Initialized on 12/19/21 11:24 - END OF NOTE WC - Nurse 2 - General Ulcer CM Notes Start: 12/05/21 11:51 Freq: Status: Active Protocol: Activity Type Activity Date Activity User E-Sign Co-Sign Detail Recorded Client Recorded Date Recorded By Document 12/05/21 12:07 MW [id number] 12/05/21 12:36 MW Document 12/12/21 11:11 MW [id number] 12/12/21 11:55 MW Document 12/19/21 11:36 MW [id number] 12/19/21 12:10 MW 12/05/21 12/12/21 12/19/21 12:07 11:11 11:36 Wound Center Nurse 2 #7 R buttock -Time 12:26 11:11 11:46 -Correct Patient Yes Yes Yes -Correct Side, Site, Position Yes Yes Yes -Correct Procedure Yes Yes Yes -Procedure Performed Yes Yes Yes -Type of Procedure Debridement Debridement Debridement -Clinical Debridement Subcutaneous Subcutaneous Subcutaneous -Tissue Removed Subcutaneous Subcutaneous -Post Debridement (cm) - Length 1.9 0.7 0.9 -Post Debridement (cm) - Width 1.5 0.5 0.6 -Post Debridement (cm) - Depth 0.1 0.1 0.1 -Total Square (Post) (cm) 2.85 0.35 0.54 -Area of Debridement (cm) - Length 1.9 0.7 0.9 -Area of Debridement (cm) - Width 1.5 0.5 0.6 -Total Square (Area) (cm) 2.85 0.35 0.54 -Tunneling No No No -Undermining/Tunneling No No No -Circular Undermining No No No -Wound/Ulcer Outcome Not Healed Not Healed Not Healed -Ulcer Cleansing Rinsed/ Rinsed/ Rinsed/ Irrigated with Irrigated with Irrigated with Saline Saline Saline -Foul Odor after Cleansing No No No -Bioengineered Tissue No No No -Bleeding Controlled with Pressure Pressure Pressure -Offloading No No No -Treatment Response Procedure Procedure Procedure Tolerated Well Tolerated Well Tolerated Well -Debridement - Subq, 1st 20sq cm Yes Yes Yes 6. R posterior labia -Time 12:32 11:12 11:47 -Correct Patient Yes Yes Yes -Correct Side, Site, Position Yes Yes Yes -Correct Procedure Yes Yes Yes -Procedure Performed Yes Yes Yes -Type of Procedure Debridement Debridement Debridement -Clinical Debridement Subcutaneous Subcutaneous Subcutaneous -Tissue Removed Subcutaneous Subcutaneous Subcutaneous -Post Debridement (cm) - Length 4.0 3.5 3.8 -Post Debridement (cm) - Width 3.5 2.8 3.0 -Post Debridement (cm) - Depth 2.1 2.2 2.7 -Total Square (Post) (cm) 14.00 9.80 11.40 -Area of Debridement (cm) - Length 4.0 3.5 3.8 -Area of Debridement (cm) - Width 3.5 2.8 3.0 -Total Square (Area) (cm) 14.00 9.80 11.40 -Tunneling No Yes No -Undermining/Tunneling No Yes Yes -Undermining/Tunneling Starts (O'clock 1 1 ) -Undermining/Tunneling Ends (O'clock) 2 2 -Maximum Distance (cm) 3.9 4.5 -Circular Undermining No No No -Wound/Ulcer Outcome Not Healed Not Healed Not Healed -Ulcer Cleansing Rinsed/ Rinsed/ Rinsed/ Irrigated with Irrigated with Irrigated with Saline Saline Saline -Foul Odor after Cleansing No No No -Bioengineered Tissue Yes Yes Yes -Type of Bioengineered Tissue Epifix Mesh Epifix Mesh Epifix Mesh -Expiration Date 07/30/26 07/30/26 08/29/26 -Product Lot Number [id number] -Percent Used 100 100 100 -Lot number of Saline Used [id number] -Bleeding Controlled with Pressure Pressure Pressure -Offloading No No No -Type of Offloading Knee Walker -Treatment Response Procedure Procedure Procedure Tolerated Well Tolerated Well Tolerated Well -Debridement - Subq, 1st 20sq cm No No No -Apply Skin Sub - 1st 25 sq cm - Legs 1 1 1 -Epifix Mesh (per sq cm) 11 11 11 Pain Scale: 0-10 Numeric Is Patient Pain Free? Yes Yes Yes WC - Nurse 3 - General Ulcer D/C NN Start: 12/05/21 11:51 Freq: Status: Active Protocol: Activity Type Activity Date Activity User E-Sign Co-Sign Detail Recorded Client Recorded Date Recorded By Document 12/05/21 12:53 DL [id number] 12/05/21 12:55 DL Document 12/12/21 12:42 RB [id number] 12/12/21 12:43 RB 12/05/21 12/12/21 12:53 12:42 Wound Care Nurse 3 #7 R buttock -Ulcer Cleansing Rinsed/ Irrigated with Saline -Foul Odor after Cleansing No -Primary Dressing Applied Mepilex Border, Mepilex Border, Promogran Promogran Rony Matter Rony Matter -Mepilex Border 1 1 -Promogran Rony Matter 1 1 6. R posterior labia -Ulcer Cleansing Wound Cleanser -Foul Odor after Cleansing No -Negative Pressure Wound Therapy Continue -Setting (mmHg) 125 -Negative Pressure is Continuous -Primary Dressing Applied Aquacel Extra -Other Dressing abd, tape -NPWT Application Charge NPWT </= 50 sq cm ($) -Aquacel Extra 1 Treatment Response Procedure Procedure Tolerated Well Tolerated Well Pain Scale: 0-10 Numeric Is Patient Pain Free? Yes Yes Teaching: Wound Center Dressing Your Wound -Person Taught Primary Caregiver -Teaching Method Discussion, Demonstration -Response to teaching Verbalize understanding WC - Visit Discharge Discharge Condition Stable Stable Ambulatory Status Wheelchair Wheelchair Transportation Private Auto Private Auto Medication Reconcilliation completed & No provided to patient/care provider Clinical Summary of Care Provided Yes Facility Type Home Health Orders Sent Yes Additional Wound Wound debrided: right buttock Laterality: Right Wound Grade/Stage: Stage 2 Type of Debridement: Excisional debridement Anesthesia Used: 5% Lidocaine Gel Depth: Down to and including healthy tissue and in the subcutaneous layer Percentage of wound debrided: 100 Instrument Used: 5mm curette Tissue Removed: Yellow slough, devitalized tissue Severity: Fat Layer Exposed Amount of bleeding with debridement: Mild Bleeding Controlled with: Compression and gauze Patient tolerated procedure: Patient tolerated procedure well Assessment/Plan Assessment/Plan (1) Decubitus ulcer of coccygeal region, stage 2: CODE(S): L89.152 - Pressure ulcer of sacral region, stage 2 (2) Debility: CODE(S): R53.81 - Other malaise (3) Multiple sclerosis: CODE(S): G35 - Multiple sclerosis (4) Psoriasis: CODE(S): L40.9 - Psoriasis, unspecified (5) Pressure injury of buttock, stage 4: CODE(S): L89.304 - Pressure ulcer of unspecified buttock, stage 4 QUALIFIERS: Laterality: right Qualified Code(s): L89.314 - Pressure ulcer of right buttock, stage 4 (6) Complete paraplegia: CODE(S): G82.21 - Paraplegia, complete (7) Bed confinement status: CODE(S): Z74.01 - Bed confinement status PLAN: Zoey'nicolle ulcers were evaluated and debrided today at the wound healing center. Ulcer of right buttock/gluteal fold will be dressed with rony for mild drainage and covered with optifoam silicone dressing to be changed every other day today and then will have them use Santyl covered with foam silicone bordered dressing. Epifix applied today per cad designer drafter guidelines, covered with adaptic touch after rehydration with hydrogel and secured with steri-strips. Wound vac will be held this week. Ulcer will be dressed with secondary dressings over the adaptic touch of Aquacel extra packed into the ulcer cavity and covered with gauze and ABD. She will continue ciprofloxacin but decreased to once daily. Gabapentin continued. Due to the poor progression of her ulcer, she would benefit from application of a skin substitute such as Epifix in order to heal her ulcer and hopefully avoid need for surgical treatment and closure with a skin flap or graft. Labs reveal adequate nutrition and otherwise were not significantly abnormal. Will recheck labs. Encouraged increased protein intake to support nutrition and optimize healing. Encouraged offloading of her right buttock/labia as much as possible in order to heal the ulcer. Discussed benefit of alternating pressure mattress as she is spending 98% of the day in bed in order to avoid pressure to the ulcer and promote wound healing. Alternating pressure mattress is medically necessary given that she is unable to adjust herself and it is becoming more difficult for her to continually move her and offload her to prevent ulcers and heal her current ulcer. She and her were advised to call with any concerns or increased drainage, erythema or odor. She will return in 1 week for wound care.
[2021-12-26 11:11] VITALS: BP 126/83; PULSE 94; RESP 18; TEMP 35.3; BMI 62.1
--- NOTE | 2021-12-26 13:43 | PN.PCM_ITS ---
History of Present Illness Date of Service: 12/26/21 Chief Complaint: Right posterior labial pressure sore, Stage III History of Wound: Zoey is a 66 yo female that is bed bound/wheelchair bound from complications of MS that presents to the wound healing center today for evaluation and treatment of a pressure ulcer of her right posterior labia that has been present since January 2021. She had been doing well but had a pressure ulcer of her right posterior labia develop in January 2021 after an abrasion from transferring after a shower. Her began applying Santyl and Aquacel Ag for several weeks and then Aquacel Ag alone for moderate drainage to the wound at that time and it was nearly healed until several weeks ago she was at a bridal shower and was out of bed for a longer period of time and the following day there was significant bruising to the area and it began to become larger and drain more. For the last 2 weeks he had returned to applying Santyl and Aquacel Extra to the wound but was not noticing significant improvement and called to be seen at the wound healing center. Her helps with her care and he reports that she has significant vaginal drainage for the last several months since she has been being treated with Estradiol for vaginal itching. She uses a tablet vaginally 3 times/week and her notes that there is copious clear-king vaginal discharge. She has a suprapubic catheter in place so it is not likely that it is urine that is leaking. He finds it very difficult to keep the wound dry due to this drainage. She has an upcoming appointment with her building construction professor on 07/16/2021 for recheck. She currently is not taking any antibiotics and she has not undergone any wound cultures of this ulcer. She denies fever, chills, nausea, vomiting or other systemic signs of infection. There is moderate to heavy drainage from the ulcer and they have been using Mepilix with border and Aquacel Ag and Santyl for the last 2 weeks. 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 Subjective Subjective Zoey's ulcer is somewhat improved. She no longer has necrotic tissue or slough at the base of the wound. Drainage is still heavy at times. She has had improvement in vaginal discharge since discontinuing the use of estradiol. She has not had wound vac treatment for the last 2 weeks and has not had any worsening of her wound. She continues on ciprofloxacin. She has decreased cipro to once daily. The newer pressure ulcer near her gluteal fold is improved overall. Gema is frustrated with the slow progress and is wondering if there is anything additional that can be done medically or that she may be able to do herself. Objective Data Objective Data Vital Signs: Vital Signs Temp Pulse Resp BP 95.6 F L 94 18 126/83 H 12/26/21 11:11 12/26/21 11:11 12/26/21 11:11 12/26/21 11:11 Weight: 180 kg Body Mass Index (BMI) 62.1 Lab / Micro Data Micro: Microbiology 12/05/21 12:15 Tissue Ulcer - Buttock Gram Stain - Final 12/05/21 12:15 Tissue Ulcer - Buttock Wound Culture - Final Lactococcus garvieae Staphylococcus epidermidis 12/05/21 12:15 Tissue Ulcer - Buttock Anaerobic Culture - Final No anaerobic bacteria isolated. Physical Exam Const alert, oriented x3 and no apparent distress General Appearance: cooperative and comfortable HEENT normocephalic and head/scalp atraumatic Resp normal respiratory effort Effort and Inspection: able to speak in complete sentences Extremity General Extremity: edema bilateral lower extremity Details: mild Skin General Skin Exam: venous stasis Wounds: wounds noted Wound Narrative: as in clincal panel Psych mental status grossly normal and thought process normal Debridement Note Debridement Note Wound debrided: right posterior labia Laterality: Right Wound Grade/Stage: Stage 3 Type of Debridement: Excisional debridement Anesthesia Used: 4% Lidocaine Solution Depth: Down to and including healthy tissue, in the subcutaneous layer and to muscle Percentage of wound debrided: 100 Instrument Used: 5mm curette Tissue Removed: Yellow slough, devitalized tissue Severity: Fat Layer Exposed Amount of bleeding with debridement: Mild Bleeding Controlled with: Compression and gauze Patient tolerated procedure: Patient tolerated procedure well Post-Debridement Measurements and Additional Note: Post-Debridement Measurements/Treatment LOUISE - Nurse 1 - General Ulcer Assessment Start: 12/05/21 11:51 Freq: Status: Active Protocol: LINK Activity Type Activity Date Activity User E-Sign Co-Sign Detail Recorded Client Recorded Date Recorded By Document 12/05/21 11:51 AK [id number] 12/05/21 11:56 AK Document 12/12/21 11:04 RB [id number] 12/12/21 11:13 RB Document 12/19/21 11:26 DL [id number] 12/19/21 11:28 DL Document 12/26/21 11:11 RB [id number] 12/26/21 11:14 RB 12/05/21 12/12/21 12/19/21 11:51 11:04 11:26 WC - Today's Visit Information Type of service Follow-up Visit Follow-up Visit Follow-up Visit (Physician/RECORDS MANAGEMENT ASSISTANT (Physician/RECORDS MANAGEMENT ASSISTANT (Physician/RECORDS MANAGEMENT ASSISTANT ) ) ) Arrival Mode Wheelchair Wheelchair Ambulatory Transfer Assistance Doug Lift Doug Lift None Transfer Assist (Other) Patient Identification Verified (Name & Yes Yes Yes ) Patient Requires Transmission-Based No Precautions Safety Precautions NA Height and Weight Body Mass Index (BMI) 62.1 62.1 62.1 BMI Classification Obese Obese Obese Vital Signs Temperature (97.8 F-99.1 F) 96.9 F L 96 F L 96.2 F L Temperature Source Temporal Temporal Temporal Pulse Rate (60-100) 82 89 88 Pulse Location Monitor Monitor Monitor Respiratory Rate (12-18) 18 18 Respiratory rate source Observation Observation Blood Pressure (90/60-120/80) 153/93 H 142/88 H 130/77 H Blood Pressure Mean (mm Hg) 113 106 94 Source Monitor Monitor Monitor Position Sitting Semi-Fowlers Blood Pressure Location Left Arm Left Arm History Since Last Visit- (Skip if this is Patient's initial visit) Have you changed medications since your No No No last visit? Any new allergies or adverse reactions No No No Had a fall/change in ADL's that may No No No increase risk of falls Signs or symptoms of abuse and/or No No No neglect since last visit Have you been in the hospital since your No No No last visit? Has dressing in place as prescribed Yes Yes Yes Has compression in place as prescribed N/A No No Has offloadiing in place as prescribed Yes No Yes Experienced any changes in pain level or No No No management Left Footwear Slipper Slipper Right Footwear Slipper Regular Shoe Pain Scale: 0-10 Numeric Is Patient Pain Free? Yes Yes 12/26/21 11:11 WC - Today's Visit Information Type of service Follow-up Visit (Physician/RECORDS MANAGEMENT ASSISTANT ) Arrival Mode Wheelchair Transfer Assistance Doug Lift Transfer Assist (Other) Patient Identification Verified (Name & Yes ) Patient Requires Transmission-Based No Precautions Safety Precautions Height and Weight Body Mass Index (BMI) 62.1 BMI Classification Obese Vital Signs Temperature (97.8 F-99.1 F) 95.6 F L Temperature Source Temporal Pulse Rate (60-100) 94 Pulse Location Monitor Respiratory Rate (12-18) 18 Respiratory rate source Observation Blood Pressure (90/60-120/80) 126/83 H Blood Pressure Mean (mm Hg) 97 Source Monitor Position Semi-Fowlers Blood Pressure Location Left Arm History Since Last Visit- (Skip if this is Patient's initial visit) Have you changed medications since your No last visit? Any new allergies or adverse reactions No Had a fall/change in ADL's that may No increase risk of falls Signs or symptoms of abuse and/or No neglect since last visit Have you been in the hospital since your No last visit? Has dressing in place as prescribed Yes Has compression in place as prescribed No Has offloadiing in place as prescribed Yes Experienced any changes in pain level or No management Left Footwear Right Footwear Pain Scale: 0-10 Numeric Is Patient Pain Free? Yes - Nurse 1 - General Ulcer Measurement Start: 12/05/21 11:51 Freq: Status: Active Protocol: Activity Type Activity Date Activity User E-Sign Co-Sign Detail Recorded Client Recorded Date Recorded By Document 12/05/21 11:51 AK [id number] 12/05/21 11:56 AK Document 12/05/21 11:57 AK [id number] 12/05/21 11:57 AK Document 12/12/21 11:04 RB [id number] 12/12/21 11:13 RB Document 12/19/21 11:20 DL [id number] 12/19/21 11:26 DL Document 12/26/21 11:11 RB [id number] 12/26/21 11:14 RB 12/05/21 12/05/21 12/12/21 11:51 11:57 11:04 Wound Center Nurse 1 #7 R buttock -Combined with other wound No No -Current Size (cm) - Length 1.7 0.3 -Current Size (cm) - Width 1.1 0.2 -Current Size (cm) - Depth 0.1 0.1 -Total Square Cm 1.87 0.06 -Photo Taken No -Tunneling No No -Tunneling Position (O'clock) 1 -Tunneling Distance (cm) 4.2 -Tunneling Position #2 (O'clock) 2 -Undermining/Tunneling No No -Circular Undermining No No -Classification - Thickness Partial Thickness -Change in Wound Grade/Stage No -Exudate Amt None Present Small -Exudate Type Serosanguineous -Wound Margin Flat & Intact Distinct, Outline Attached -Granulation Amt None Present (0 Medium (34-66%) %) -Granulation Quality N/A [place] -Slough/Fibrin No Yes -Necrosis Amt None Present (0 Medium (34-66%) %) -Necrotic Tissue Type Adherent Slough -Structure Exposed N/A N/A -Texture (Janene-wound Skin Appearance) Assessed,Callus Assessed, ,Rash Scarring -Moisture (Janene-wound Skin Appearance) No Abnormality, Assessed Assessed -Color (Janene-wound Skin Appearance) No Abnormality, Assessed Assessed -Temperature (Janene-wound Skin No Abnormality No Abnormality Appearance) (Pt Warm) (Pt Warm) -Tenderness on Palpation (Janene-wound Yes No Skin Appearance) -Ulcer Cleansing Rinsed/ Wound Cleanser Irrigated with Saline -Foul Odor after Cleansing No No -Anesthetic Used 4% Lidocaine 5% Lidocaine Solution Gel 6. R posterior labia -Combined with other wound No -Current Size (cm) - Length 3 3.5 -Current Size (cm) - Width 4 5 -Current Size (cm) - Depth 2 2.5 -Total Square Cm 12 17.5 -Photo Taken No -Tunneling No No -Undermining/Tunneling No Yes -Undermining/Tunneling Starts (O'clock 10 ) -Undermining/Tunneling Ends (O'clock) 2 -Maximum Distance (cm) 4.9 -Circular Undermining No -Change in Wound Grade/Stage No -Exudate Amt Medium Large -Exudate Type Serosanguineous Serosanguineous -Wound Margin Distinct, Thickened & Outline Rolled Under Attached -Granulation Amt Medium (34-66%) Large (67-100%) -Granulation Quality [place],Red [place] -Slough/Fibrin No Yes -Necrosis Amt None Present (0 Small (1-33%) %) -Necrotic Tissue Type Adherent Slough -Structure Exposed N/A -Texture (Janene-wound Skin Appearance) Assessed, Assessed, Scarring,Rash Scarring -Moisture (Janene-wound Skin Appearance) No Abnormality, Assessed Assessed -Color (Janene-wound Skin Appearance) No Abnormality, Assessed Assessed -Temperature (Janene-wound Skin No Abnormality No Abnormality Appearance) (Pt Warm) (Pt Warm) -Tenderness on Palpation (Janene-wound Yes No Skin Appearance) -Ulcer Cleansing Rinsed/ Wound Cleanser Irrigated with Saline -Foul Odor after Cleansing No No -Anesthetic Used 4% Lidocaine 4% Lidocaine Solution Solution,5% Lidocaine Gel 12/19/21 12/26/21 11:20 11:11 Wound Center Nurse 1 #7 R buttock -Combined with other wound No No -Current Size (cm) - Length 0.7 0.6 -Current Size (cm) - Width 0.5 0.5 -Current Size (cm) - Depth 0.1 0.1 -Total Square Cm 0.35 0.30 -Photo Taken -Tunneling No No -Tunneling Position (O'clock) -Tunneling Distance (cm) -Tunneling Position #2 (O'clock) -Undermining/Tunneling No No -Circular Undermining No No -Classification - Thickness -Change in Wound Grade/Stage -Exudate Amt Medium Medium -Exudate Type Serosanguineous Serosanguineous -Wound Margin Distinct, Distinct, Outline Outline Attached Attached -Granulation Amt Medium (34-66%) Medium (34-66%) -Granulation Quality [place] -Slough/Fibrin Yes Yes -Necrosis Amt Small (1-33%) Small (1-33%) -Necrotic Tissue Type Adherent Slough Adherent Slough -Structure Exposed N/A N/A -Texture (Janene-wound Skin Appearance) Assessed, Assessed, Scarring Scarring -Moisture (Janene-wound Skin Appearance) Assessed Assessed -Color (Janene-wound Skin Appearance) Assessed Assessed -Temperature (Janene-wound Skin No Abnormality No Abnormality Appearance) (Pt Warm) (Pt Warm) -Tenderness on Palpation (Janene-wound No No Skin Appearance) -Ulcer Cleansing Wound Cleanser Wound Cleanser -Foul Odor after Cleansing No No -Anesthetic Used 4% Lidocaine 4% Lidocaine Solution Solution 6. R posterior labia -Combined with other wound No No -Current Size (cm) - Length 4 3.2 -Current Size (cm) - Width 3 3.3 -Current Size (cm) - Depth 2.7 0.4 -Total Square Cm 12 10.56 -Photo Taken -Tunneling No No -Undermining/Tunneling No Yes -Undermining/Tunneling Starts (O'clock 1 ) -Undermining/Tunneling Ends (O'clock) 2 -Maximum Distance (cm) 4.2 -Circular Undermining No -Change in Wound Grade/Stage -Exudate Amt Large Large -Exudate Type Serosanguineous Serosanguineous -Wound Margin Thickened & Thickened & Rolled Under Rolled Under -Granulation Amt Medium (34-66%) Large (67-100%) -Granulation Quality [place],Red [place] -Slough/Fibrin Yes Yes -Necrosis Amt Medium (34-66%) Medium (34-66%) -Necrotic Tissue Type Adherent Slough Adherent Slough -Structure Exposed N/A N/A -Texture (Janene-wound Skin Appearance) Assessed, Scarring Scarring -Moisture (Janene-wound Skin Appearance) Assessed Assessed -Color (Janene-wound Skin Appearance) Assessed Assessed -Temperature (Janene-wound Skin No Abnormality No Abnormality Appearance) (Pt Warm) (Pt Warm) -Tenderness on Palpation (Janene-wound No No Skin Appearance) -Ulcer Cleansing Wound Cleanser Wound Cleanser -Foul Odor after Cleansing No No -Anesthetic Used 4% Lidocaine 4% Lidocaine Solution Solution 12/19/21 11:24 Wound Center by Michaela Xiao Right inner thigh skin intact but eccomotic area noted . pt noticed area on Wednesday. Initialized on 12/19/21 11:24 - END OF NOTE WC - Nurse 2 - General Ulcer CM Notes Start: 12/05/21 11:51 Freq: Status: Active Protocol: Activity Type Activity Date Activity User E-Sign Co-Sign Detail Recorded Client Recorded Date Recorded By Document 12/05/21 12:07 MW [id number] 12/05/21 12:36 MW Document 12/12/21 11:11 MW [id number] 12/12/21 11:55 MW Document 12/19/21 11:36 MW [id number] 12/19/21 12:10 MW Document 12/26/21 11:23 MW [id number] 12/26/21 11:54 MW 12/05/21 12/12/21 12/19/21 12:07 11:11 11:36 Wound Center Nurse 2 #7 R buttock -Time 12:26 11:11 11:46 -Correct Patient Yes Yes Yes -Correct Side, Site, Position Yes Yes Yes -Correct Procedure Yes Yes Yes -Procedure Performed Yes Yes Yes -Type of Procedure Debridement Debridement Debridement -Clinical Debridement Subcutaneous Subcutaneous Subcutaneous -Tissue Removed Subcutaneous Subcutaneous -Post Debridement (cm) - Length 1.9 0.7 0.9 -Post Debridement (cm) - Width 1.5 0.5 0.6 -Post Debridement (cm) - Depth 0.1 0.1 0.1 -Total Square (Post) (cm) 2.85 0.35 0.54 -Area of Debridement (cm) - Length 1.9 0.7 0.9 -Area of Debridement (cm) - Width 1.5 0.5 0.6 -Total Square (Area) (cm) 2.85 0.35 0.54 -Tunneling No No No -Undermining/Tunneling No No No -Circular Undermining No No No -Wound/Ulcer Outcome Not Healed Not Healed Not Healed -Ulcer Cleansing Rinsed/ Rinsed/ Rinsed/ Irrigated with Irrigated with Irrigated with Saline Saline Saline -Foul Odor after Cleansing No No No -Bioengineered Tissue No No No -Bleeding Controlled with Pressure Pressure Pressure -Offloading No No No -Treatment Response Procedure Procedure Procedure Tolerated Well Tolerated Well Tolerated Well -Debridement - Subq, 1st 20sq cm Yes Yes Yes 6. R posterior labia -Time 12:32 11:12 11:47 -Correct Patient Yes Yes Yes -Correct Side, Site, Position Yes Yes Yes -Correct Procedure Yes Yes Yes -Procedure Performed Yes Yes Yes -Type of Procedure Debridement Debridement Debridement -Clinical Debridement Subcutaneous Subcutaneous Subcutaneous -Tissue Removed Subcutaneous Subcutaneous Subcutaneous -Post Debridement (cm) - Length 4.0 3.5 3.8 -Post Debridement (cm) - Width 3.5 2.8 3.0 -Post Debridement (cm) - Depth 2.1 2.2 2.7 -Total Square (Post) (cm) 14.00 9.80 11.40 -Area of Debridement (cm) - Length 4.0 3.5 3.8 -Area of Debridement (cm) - Width 3.5 2.8 3.0 -Total Square (Area) (cm) 14.00 9.80 11.40 -Tunneling No Yes No -Undermining/Tunneling No Yes Yes -Undermining/Tunneling Starts (O'clock 1 1 ) -Undermining/Tunneling Ends (O'clock) 2 2 -Maximum Distance (cm) 3.9 4.5 -Circular Undermining No No No -Wound/Ulcer Outcome Not Healed Not Healed Not Healed -Ulcer Cleansing Rinsed/ Rinsed/ Rinsed/ Irrigated with Irrigated with Irrigated with Saline Saline Saline -Foul Odor after Cleansing No No No -Bioengineered Tissue Yes Yes Yes -Type of Bioengineered Tissue Epifix Mesh Epifix Mesh Epifix Mesh -Expiration Date 07/30/26 07/30/26 08/29/26 -Product Lot Number [id number] -Percent Used 100 100 100 -Lot number of Saline Used [id number] -Bleeding Controlled with Pressure Pressure Pressure -Offloading No No No -Type of Offloading Knee Walker -Treatment Response Procedure Procedure Procedure Tolerated Well Tolerated Well Tolerated Well -Debridement - Subq, 1st 20sq cm No No No -Apply Skin Sub - 1st 25 sq cm - Legs 1 1 1 -Epifix Mesh (per sq cm) 11 11 11 Pain Scale: 0-10 Numeric Is Patient Pain Free? Yes Yes Yes 12/26/21 11:23 Wound Center Nurse 2 #7 R buttock -Time 11:31 -Correct Patient Yes -Correct Side, Site, Position Yes -Correct Procedure Yes -Procedure Performed Yes -Type of Procedure Debridement -Clinical Debridement Subcutaneous -Tissue Removed Subcutaneous -Post Debridement (cm) - Length 0.6 -Post Debridement (cm) - Width 0.5 -Post Debridement (cm) - Depth 0.1 -Total Square (Post) (cm) 0.30 -Area of Debridement (cm) - Length 0.6 -Area of Debridement (cm) - Width 0.5 -Total Square (Area) (cm) 0.30 -Tunneling No -Undermining/Tunneling No -Circular Undermining No -Wound/Ulcer Outcome Not Healed -Ulcer Cleansing Rinsed/ Irrigated with Saline -Foul Odor after Cleansing No -Bioengineered Tissue No -Bleeding Controlled with Pressure -Offloading No -Treatment Response Procedure Tolerated Well -Debridement - Subq, 1st 20sq cm Yes 6. R posterior labia -Time 11:31 -Correct Patient Yes -Correct Side, Site, Position Yes -Correct Procedure Yes -Procedure Performed Yes -Type of Procedure Debridement -Clinical Debridement Subcutaneous -Tissue Removed Subcutaneous -Post Debridement (cm) - Length 3.5 -Post Debridement (cm) - Width 3.0 -Post Debridement (cm) - Depth 2.4 -Total Square (Post) (cm) 10.50 -Area of Debridement (cm) - Length 3.5 -Area of Debridement (cm) - Width 3.0 -Total Square (Area) (cm) 10.50 -Tunneling No -Undermining/Tunneling Yes -Undermining/Tunneling Starts (O'clock 1 ) -Undermining/Tunneling Ends (O'clock) 2 -Maximum Distance (cm) 4.3 -Circular Undermining No -Wound/Ulcer Outcome Not Healed -Ulcer Cleansing Rinsed/ Irrigated with Saline -Foul Odor after Cleansing No -Bioengineered Tissue No -Type of Bioengineered Tissue -Expiration Date -Product Lot Number -Percent Used -Lot number of Saline Used -Bleeding Controlled with Pressure -Offloading No -Type of Offloading -Treatment Response Procedure Tolerated Well -Debridement - Subq, 1st 20sq cm No -Apply Skin Sub - 1st 25 sq cm - Legs -Epifix Mesh (per sq cm) Pain Scale: 0-10 Numeric Is Patient Pain Free? Yes WC - Nurse 3 - General Ulcer D/C NN Start: 12/05/21 11:51 Freq: Status: Active Protocol: Activity Type Activity Date Activity User E-Sign Co-Sign Detail Recorded Client Recorded Date Recorded By Document 12/05/21 12:53 DL [id number] 12/05/21 12:55 DL Document 12/12/21 12:42 RB [id number] 12/12/21 12:43 RB Document 12/26/21 12:04 RB [id number] 12/26/21 12:06 RB 12/05/21 12/12/21 12/26/21 12:53 12:42 12:04 Wound Care Nurse 3 #7 R buttock -Ulcer Cleansing Rinsed/ Rinsed/ Irrigated with Irrigated with Saline Saline -Foul Odor after Cleansing No -Primary Dressing Applied Mepilex Border, Mepilex Border, Mepilex Border, Promogran Promogran Promogran Rony Matter Rony Matter -Mepilex Border 1 1 1 -Promogran 1 -Promogran Rony Matter 1 1 6. R posterior labia -Ulcer Cleansing Wound Cleanser Rinsed/ Irrigated with Saline -Foul Odor after Cleansing No -Negative Pressure Wound Therapy Continue -Setting (mmHg) 125 -Negative Pressure is Continuous -Primary Dressing Applied Aquacel Extra Aquacel Extra -Other Dressing abd, tape abd -Primary Dressing Covered/Secured with Dry Gauze, Secured with Tape -NPWT Application Charge NPWT </= 50 sq cm ($) -Aquacel Extra 1 1 Treatment Response Procedure Procedure Procedure Tolerated Well Tolerated Well Tolerated Well Pain Scale: 0-10 Numeric Is Patient Pain Free? Yes Yes Yes Teaching: Wound Center Dressing Your Wound -Person Taught Primary Caregiver -Teaching Method Discussion, Demonstration -Response to teaching Verbalize understanding WC - Visit Discharge Discharge Condition Stable Stable Stable Ambulatory Status Wheelchair Wheelchair Wheelchair Transportation Private Auto Private Auto Private Auto Medication Reconcilliation completed & No No provided to patient/care provider Clinical Summary of Care Provided Yes Yes Facility Type Home Health Orders Sent Yes Additional Wound Wound debrided: right buttock Laterality: Right Wound Grade/Stage: Stage 2 Type of Debridement: Excisional debridement Anesthesia Used: 4% Lidocaine Solution Depth: Down to and including healthy tissue and in the subcutaneous layer Percentage of wound debrided: 100 Instrument Used: 3mm curette Tissue Removed: Yellow slough, devitalized tissue Severity: Fat Layer Exposed Amount of bleeding with debridement: Mild Bleeding Controlled with: Compression and gauze Patient tolerated procedure: Patient tolerated procedure well Assessment/Plan Assessment/Plan (1) Decubitus ulcer of coccygeal region, stage 2: CODE(S): L89.152 - Pressure ulcer of sacral region, stage 2 (2) Debility: CODE(S): R53.81 - Other malaise (3) Multiple sclerosis: CODE(S): G35 - Multiple sclerosis (4) Psoriasis: CODE(S): L40.9 - Psoriasis, unspecified (5) Pressure injury of buttock, stage 4: CODE(S): L89.304 - Pressure ulcer of unspecified buttock, stage 4 QUALIFIERS: Laterality: right Qualified Code(s): L89.314 - Pressure ulcer of right buttock, stage 4 (6) Complete paraplegia: CODE(S): G82.21 - Paraplegia, complete (7) Bed confinement status: CODE(S): Z74.01 - Bed confinement status PLAN: Zoey's ulcers were evaluated and debrided today at the wound healing center. Ulcer of right buttock/gluteal fold will be dressed with rony for mild drainage and covered with optifoam silicone dressing to be changed every other day. Amniofix product applied today per recording clerk guidelines, covered with adaptic touch after rehydration with hydrogel and secured with steri-strips. Wound vac will be discontinued as it has not been significantly helpful in improving the size of her wound. Ulcer will be dressed with secondary dressings over the adaptic touch of Aquacel extra packed into the ulcer cavity and covered with gauze and ABD. She will continue ciprofloxacin but decreased to once daily. Gabapentin continued. Due to the poor progression of her ulcer, she would benefit from application of a skin substitute such as Epifix in order to heal her ulcer and hopefully avoid need for surgical treatment and closure with a skin flap or graft. Labs reveal adequate nutrition and otherwise were not significantly abnormal. Will recheck labs. Encouraged increased protein intake to support nutrition and optimize healing. Encouraged offloading of her right buttock/labia as much as possible in order to heal the ulcer. Discussed benefit of alternating pressure mattress as she is spending 98% of the day in bed in order to avoid pressure to the ulcer and promote wound healing. Alternating pressure mattress is medically necessary given that she is unable to adjust herself and it is becoming more difficult for her to continually move her and offload her to prevent ulcers and heal her current ulcer. She and her were advised to call with any concerns or increased drainage, erythema or odor. She will return in 1 week for wound care.
== END 2021-12-29 23:59 ==
LOC: WC 11:00
PROVIDERS: PCP Family Medicine; Visit Provider Family Medicine
DX: L89.153 Pressure ulcer of sacral region, stage 3 (principal); L89.314 Pressure ulcer of right buttock, stage 4; G82.21 Paraplegia, complete; G35 Multiple sclerosis; L40.9 Psoriasis, unspecified; Z74.01 Bed confinement status
CPT/HCPCS: 11042; 15271; 87070; 87075; 87186; 87205; 97605; Q4186

== ENCOUNTER 2022-01-23 10:30 | Outpatient (RCR) | payer MEDICARE, SELFPAY ==
[2021-12-30 00:20] VITALS: BP 126/83; PULSE 94; RESP 18; TEMP 35.3; BMI 62.1
[2022-01-09 11:42] VITALS: BP 133/86; PULSE 103; RESP 18; TEMP 36.4; BMI 62.1
--- NOTE | 2022-01-09 13:08 | PN.PCM_ITS ---
History of Present Illness Date of Service: 01/09/22 Chief Complaint: Right posterior labial pressure sore, Stage III History of Wound: Zoey is a 66 yo female that is bed bound/wheelchair bound from complications of MS that presents to the wound healing center today for evaluation and treatment of a pressure ulcer of her right posterior labia that has been present since January 2021. She had been doing well but had a pressure ulcer of her right posterior labia develop in January 2021 after an abrasion from transferring after a shower. Her began applying Santyl and Aquacel Ag for several weeks and then Aquacel Ag alone for moderate drainage to the wound at that time and it was nearly healed until several weeks ago she was at a bridal shower and was out of bed for a longer period of time and the following day there was significant bruising to the area and it began to become larger and drain more. For the last 2 weeks he had returned to applying Santyl and Aquacel Extra to the wound but was not noticing significant improvement and called to be seen at the wound healing center. Her helps with her care and he reports that she has significant vaginal drainage for the last several months since she has been being treated with Estradiol for vaginal itching. She uses a tablet vaginally 3 times/week and her notes that there is copious clear-king vaginal discharge. She has a suprapubic catheter in place so it is not likely that it is urine that is leaking. He finds it very difficult to keep the wound dry due to this drainage. She has an upcoming appointment with her lute packer or applier on 07/16/2021 for recheck. She currently is not taking any antibiotics and she has not undergone any wound cultures of this ulcer. She denies fever, chills, nausea, vomiting or other systemic signs of infection. There is moderate to heavy drainage from the ulcer and they have been using Mepilix with border and Aquacel Ag and Santyl for the last 2 weeks. 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 Subjective Subjective Zoey's ulcer is improved. She no longer has necrotic tissue or significant slough at the base of the wound. Drainage is still heavy at times. She has had improvement in vaginal discharge since discontinuing the use of estradiol. She has not had wound vac treatment for the last 2 weeks and has not had any worsening of her wound. She continues on ciprofloxacin. She has decreased cipro to once daily. The newer pressure ulcer near her gluteal fold is improved and is almost healed. Gema is frustrated with the slow progress and is wondering if there is anything additional that can be done medically or that she may be able to do herself. Objective Data Objective Data Vital Signs: Vital Signs Temp Pulse Resp BP 97.6 F L 103 H 18 133/86 H 01/09/22 11:42 01/09/22 11:42 01/09/22 11:42 01/09/22 11:42 Weight: 180 kg Body Mass Index (BMI) 62.1 Physical Exam Const alert, oriented x3 and no apparent distress General Appearance: cooperative and comfortable Resp normal respiratory effort Effort and Inspection: able to speak in complete sentences Cardio regular rate and regular rhythm Extremity General Extremity: edema bilateral lower extremity Details: trace Skin Wounds: wounds noted Wound Narrative: as in clinical panel Psych mental status grossly normal, thought process normal, cooperative and affect normal Debridement Note Debridement Note Wound debrided: right buttock Laterality: Right Wound Grade/Stage: Stage 2 Type of Debridement: Excisional debridement Anesthesia Used: 4% Lidocaine Solution Depth: Down to and including healthy tissue and in the subcutaneous layer Percentage of wound debrided: 100 Instrument Used: 3mm curette Tissue Removed: Yellow slough, devitalized tissue Severity: Fat Layer Exposed Amount of bleeding with debridement: Mild Bleeding Controlled with: Compression and gauze Patient tolerated procedure: Patient tolerated procedure well Post-Debridement Measurements and Additional Note: Post-Debridement Measurements/Treatment - Nurse 1 - General Ulcer Assessment Start: 01/09/22 11:42 Freq: Status: Active Protocol: LINK Activity Type Activity Date Activity User E-Sign Co-Sign Detail Recorded Client Recorded Date Recorded By Document 01/09/22 11:42 ML [id number] 01/09/22 11:46 ML 01/09/22 11:42 - Today's Visit Information Type of service Follow-up Visit (Physician/BSA OFFICER ) Arrival Mode Wheelchair Transfer Assistance Doug Lift Patient Identification Verified (Name & Yes ) Patient Requires Transmission-Based No Precautions Safety Precautions NA Height and Weight Body Mass Index (BMI) 62.1 BMI Classification Obese Vital Signs Temperature (97.8 F-99.1 F) 97.6 F L Temperature Source Temporal Pulse Rate (60-100) 103 H Pulse Location Monitor Respiratory Rate (12-18) 18 Respiratory rate source Observation Blood Pressure (90/60-120/80) 133/86 H Blood Pressure Mean (mm Hg) 101 Source Monitor Position Sitting Blood Pressure Location Left Arm History Since Last Visit- (Skip if this is Patient's initial visit) Have you changed medications since your No last visit? Any new allergies or adverse reactions No Had a fall/change in ADL's that may No increase risk of falls Signs or symptoms of abuse and/or No neglect since last visit Have you been in the hospital since your No last visit? Has dressing in place as prescribed Yes Has compression in place as prescribed Yes Has offloadiing in place as prescribed N/A Experienced any changes in pain level or No management Left Footwear Regular Shoe Right Footwear Regular Shoe Pain Scale: 0-10 Numeric Is Patient Pain Free? Yes WC - Nurse 1 - General Ulcer Measurement Start: 01/09/22 11:42 Freq: Status: Active Protocol: Activity Type Activity Date Activity User E-Sign Co-Sign Detail Recorded Client Recorded Date Recorded By Document 01/09/22 11:42 ML [id number] 01/09/22 11:46 ML 01/09/22 11:42 Wound Center Nurse 1 #7 R buttock -Current Size (cm) - Length 0.5 -Current Size (cm) - Width 0.5 -Current Size (cm) - Depth 0.1 -Total Square Cm 0.25 -Wound Margin Distinct, Outline Attached -Granulation Quality Yoe -Slough/Fibrin Yes -Necrosis Amt None Present (0 %) -Texture (Janene-wound Skin Appearance) Assessed -Moisture (Janene-wound Skin Appearance) Assessed -Color (Janene-wound Skin Appearance) Assessed -Temperature (Janene-wound Skin No Abnormality Appearance) (Pt Warm) -Tenderness on Palpation (Janene-wound No Skin Appearance) -Ulcer Cleansing Soap and Water -Foul Odor after Cleansing No -Anesthetic Used 4% Lidocaine Solution 6. R posterior labia -Current Size (cm) - Length 3 -Current Size (cm) - Width 3 -Current Size (cm) - Depth 0.3 -Total Square Cm 9 -Undermining/Tunneling Yes -Undermining/Tunneling Starts (O'clock 1 ) -Undermining/Tunneling Ends (O'clock) 2 -Maximum Distance (cm) 4.6 -Exudate Amt Medium -Exudate Type Serosanguineous -Wound Margin Distinct, Outline Attached -Granulation Amt Medium (34-66%) -Granulation Quality Yoe -Slough/Fibrin Yes -Necrosis Amt Medium (34-66%) -Necrotic Tissue Type Adherent Slough -Texture (Janene-wound Skin Appearance) Assessed -Moisture (Janene-wound Skin Appearance) Assessed -Color (Janene-wound Skin Appearance) Assessed -Temperature (Janene-wound Skin No Abnormality Appearance) (Pt Warm) -Tenderness on Palpation (Janene-wound No Skin Appearance) -Ulcer Cleansing Soap and Water -Foul Odor after Cleansing No -Anesthetic Used 4% Lidocaine Solution WC - Nurse 2 - General Ulcer CM Notes Start: 01/09/22 11:42 Freq: Status: Active Protocol: Activity Type Activity Date Activity User E-Sign Co-Sign Detail Recorded Client Recorded Date Recorded By Document 01/09/22 12:05 MW [id number] 01/09/22 12:29 MW 01/09/22 12:05 Wound Center Nurse 2 #7 R buttock -Time 12:06 -Correct Patient Yes -Correct Side, Site, Position Yes -Correct Procedure Yes -Procedure Performed No -Post Debridement (cm) - Length 0.2 -Post Debridement (cm) - Width 0.3 -Post Debridement (cm) - Depth 0.1 -Total Square (Post) (cm) 0.06 -Area of Debridement (cm) - Length 0.2 -Area of Debridement (cm) - Width 0.3 -Total Square (Area) (cm) 0.06 -Tunneling No -Undermining/Tunneling No -Circular Undermining No -Wound/Ulcer Outcome Not Healed -Bleeding Controlled with NA -Treatment Response Procedure Tolerated Well 6. R posterior labia -Time 12:06 -Correct Patient Yes -Correct Side, Site, Position Yes -Correct Procedure Yes -Procedure Performed Yes -Type of Procedure Debridement -Clinical Debridement Subcutaneous -Tissue Removed Subcutaneous -Post Debridement (cm) - Length 3.8 -Post Debridement (cm) - Width 3.2 -Post Debridement (cm) - Depth 1.8 -Total Square (Post) (cm) 12.16 -Area of Debridement (cm) - Length 3.8 -Area of Debridement (cm) - Width 3.2 -Total Square (Area) (cm) 12.16 -Tunneling No -Undermining/Tunneling Yes -Undermining/Tunneling Starts (O'clock 1 ) -Undermining/Tunneling Ends (O'clock) 2 -Maximum Distance (cm) 3.4 -Circular Undermining No -Wound/Ulcer Outcome Not Healed -Ulcer Cleansing Rinsed/ Irrigated with Saline -Foul Odor after Cleansing No -Bioengineered Tissue No -Bleeding Controlled with Pressure -Offloading No -Treatment Response Procedure Tolerated Well -Debridement - Subq, 1st 20sq cm Yes Pain Scale: 0-10 Numeric Is Patient Pain Free? Yes WC - Nurse 3 - General Ulcer D/C NN Start: 01/09/22 11:42 Freq: Status: Active Protocol: Activity Type Activity Date Activity User E-Sign Co-Sign Detail Recorded Client Recorded Date Recorded By Document 01/09/22 12:44 ML [id number] 01/09/22 12:47 ML 01/09/22 12:44 Wound Care Nurse 3 #7 R buttock -Ulcer Cleansing Rinsed/ Irrigated with Saline -Primary Dressing Applied Promogran -Other Dressing foam dressing -Promogran 1 6. R posterior labia -Primary Dressing Applied Aquacel Extra -Other Dressing abd -Primary Dressing Covered/Secured with Dry Gauze, Secured with Tape -Aquacel Extra 1 Pain Scale: 0-10 Numeric Is Patient Pain Free? Yes Additional Wound Wound debrided: right posterior labia Laterality: Right Wound Grade/Stage: Stage III Type of Debridement: Excisional debridement Anesthesia Used: 4% Lidocaine Solution and 5% Lidocaine Gel Depth: Down to and including healthy tissue, in the subcutaneous layer and to muscle Percentage of wound debrided: 100 Instrument Used: 5mm curette Tissue Removed: Yellow slough, devitalized tissue Severity: Fat Layer Exposed Amount of bleeding with debridement: Mild Bleeding Controlled with: Compression and gauze Patient tolerated procedure: Patient tolerated procedure well Assessment/Plan Assessment/Plan (1) Bed confinement status: CODE(S): Z74.01 - Bed confinement status (2) Complete paraplegia: CODE(S): G82.21 - Paraplegia, complete (3) Pressure ulcer of right buttock, stage 3: CODE(S): L89.313 - Pressure ulcer of right buttock, stage 3 (4) Other complications of skin graft (allograft) (autograft): CODE(S): T86.828 - Other complications of skin graft (allograft) (autograft) (5) Decubitus ulcer of coccygeal region, stage 2: CODE(S): L89.152 - Pressure ulcer of sacral region, stage 2 (6) Pressure injury, stage 4, with gangrene: CODE(S): I96 - Gangrene, not elsewhere classified; L89.94 - Pressure ulcer of unspecified site, stage 4 (7) Psoriasis: CODE(S): L40.9 - Psoriasis, unspecified (8) Multiple sclerosis: CODE(S): G35 - Multiple sclerosis PLAN: Zoey's ulcers were evaluated and debrided today at the wound healing center. Ulcer of right buttock/gluteal fold will be dressed with rony for mild drainage and covered with optifoam silicone dressing to be changed every other day. Amniofix product applied today per welding machine operator resistance guidelines, covered with adaptic touch after rehydration with hydrogel and secured with steri-strips. Wound vac has been discontinued as it has not been significantly helpful in improving the size of her wound. Ulcer will be dressed with secondary dressings over the adaptic touch of Aquacel extra packed into the ulcer cavity and covered with gauze and ABD. She will continue ciprofloxacin but decreased to once daily. Gabapentin continued. Due to the poor progression of her ulcer, she would benefit from application of a skin substitute such as Epifix in order to heal her ulcer and hopefully avoid need for surgical treatment and closure with a skin flap or graft. Labs reveal adequate nutrition and otherwise were not significantly abnormal. Will recheck labs. Encouraged increased protein intake to support nutrition and optimize healing. Encouraged offloading of her right buttock/labia as much as possible in order to heal the ulcer. Discussed benefit of alternating pressure mattress as she is spending 98% of the day in bed in order to avoid pressure to the ulcer and pr omote wound healing. Alternating pressure mattress is medically necessary given that she is unable to adjust herself and it is becoming more difficult for her to continually move her and offload her to prevent ulcers and heal her current ulcer. She and her were advised to call with any concerns or increased drainage, erythema or odor. She will return in 1 week for wound care.
[2022-01-23 10:53] VITALS: BP 144/78; PULSE 81; RESP 16; TEMP 35.8; BMI 62.1
--- NOTE | 2022-01-23 12:16 | PN.PCM_ITS ---
History of Present Illness Date of Service: 01/23/22 Chief Complaint: Right posterior labial pressure sore, Stage III History of Wound: Zoey is a 66 yo female that is bed bound/wheelchair bound from complications of MS that presents to the wound healing center today for evaluation and treatment of a pressure ulcer of her right posterior labia that has been present since January 2021. She had been doing well but had a pressure ulcer of her right posterior labia develop in January 2021 after an abrasion from transferring after a shower. Her began applying Santyl and Aquacel Ag for several weeks and then Aquacel Ag alone for moderate drainage to the wound at that time and it was nearly healed until several weeks ago she was at a bridal shower and was out of bed for a longer period of time and the following day there was significant bruising to the area and it began to become larger and drain more. For the last 2 weeks he had returned to applying Santyl and Aquacel Extra to the wound but was not noticing significant improvement and called to be seen at the wound healing center. Her helps with her care and he reports that she has significant vaginal drainage for the last several months since she has been being treated with Estradiol for vaginal itching. She uses a tablet vaginally 3 times/week and her notes that there is copious clear-king vaginal discharge. She has a suprapubic catheter in place so it is not likely that it is urine that is leaking. He finds it very difficult to keep the wound dry due to this drainage. She has an upcoming appointment with her instrument panel assembler on 07/16/2021 for recheck. She currently is not taking any antibiotics and she has not undergone any wound cultures of this ulcer. She denies fever, chills, nausea, vomiting or other systemic signs of infection. There is moderate to heavy drainage from the ulcer and they have been using Mepilix with border and Aquacel Ag and Santyl for the last 2 weeks. 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 Subjective Subjective Zoey's ulcer continues to improve. She no longer has necrotic tissue or significant slough at the base of the wound. Drainage is still heavy at times. She has had improvement in vaginal discharge since discontinuing the use of estradiol. She continues on ciprofloxacin. She has decreased cipro to once daily. The newer pressure ulcer near her gluteal fold is healed. Objective Data Objective Data Vital Signs: Vital Signs Temp Pulse Resp BP 96.5 F L 81 16 144/78 H 01/23/22 10:53 01/23/22 10:53 01/23/22 10:53 01/23/22 10:53 Oxygen Delivery Method Room Air Weight: 180 kg Body Mass Index (BMI) 62.1 Physical Exam Const alert, oriented x3 and no apparent distress General Appearance: cooperative and comfortable Resp normal respiratory effort Effort and Inspection: able to speak in complete sentences Cardio regular rate and regular rhythm Extremity General Extremity: edema bilateral lower extremity Details: trace Skin Wounds: wounds noted Wound Narrative: as in clinical panel Psych mental status grossly normal, thought process normal, cooperative and affect normal Debridement Note Debridement Note Wound debrided: right posterior labia Laterality: Right Wound Grade/Stage: Stage III Type of Debridement: Excisional debridement Anesthesia Used: 4% Lidocaine Solution Depth: Down to and including healthy tissue and in the subcutaneous layer Percentage of wound debrided: 100 Instrument Used: 5mm curette Tissue Removed: Yellow slough, devitalized tissue Severity: Fat Layer Exposed Amount of bleeding with debridement: Mild Bleeding Controlled with: Compression and gauze Patient tolerated procedure: Patient tolerated procedure well Post-Debridement Measurements and Additional Note: Post-Debridement Measurements/Treatment - Nurse 1 - General Ulcer Assessment Start: 01/09/22 11:42 Freq: Status: Active Protocol: LINK Activity Type Activity Date Activity User E-Sign Co-Sign Detail Recorded Client Recorded Date Recorded By Document 01/09/22 11:42 ML [id number] 01/09/22 11:46 ML Document 01/23/22 10:53 BM [id number] 01/23/22 10:57 BMF 01/09/22 01/23/22 11:42 10:53 - Today's Visit Information Type of service Follow-up Visit Follow-up Visit (Physician/TEXTILE STYLIST (Physician/TEXTILE STYLIST ) ) Arrival Mode Wheelchair Wheelchair Transfer Assistance Doug Lift Doug Lift Transfer Assist (Other) 2 Accompanied by Patient Identification Verified (Name & Yes Yes ) Patient Requires Transmission-Based No No Precautions Safety Precautions NA Height and Weight Body Mass Index (BMI) 62.1 62.1 BMI Classification Obese Obese Vital Signs Temperature (97.8 F-99.1 F) 97.6 F L 96.5 F L Temperature Source Temporal Temporal Pulse Rate (60-100) 103 H 81 Pulse Location Monitor Monitor Respiratory Rate (12-18) 18 16 Respiratory rate source Observation Observation Oxygen Delivery Method Room Air Blood Pressure (90/60-120/80) 133/86 H 144/78 H Blood Pressure Mean (mm Hg) 101 100 Source Monitor Monitor Position Sitting Sitting Blood Pressure Location Left Arm History Since Last Visit- (Skip if this is Patient's initial visit) Have you changed medications since your No No last visit? Any new allergies or adverse reactions No No Had a fall/change in ADL's that may No No increase risk of falls Signs or symptoms of abuse and/or No No neglect since last visit Have you been in the hospital since your No No last visit? Has dressing in place as prescribed Yes Yes Has compression in place as prescribed Yes N/A Has offloadiing in place as prescribed N/A N/A Experienced any changes in pain level or No No management Left Footwear Regular Shoe Regular Shoe Right Footwear Regular Shoe Regular Shoe Pain Scale: 0-10 Numeric Is Patient Pain Free? Yes Yes WC - Nurse 1 - General Ulcer Measurement Start: 01/09/22 11:42 Freq: Status: Active Protocol: Activity Type Activity Date Activity User E-Sign Co-Sign Detail Recorded Client Recorded Date Recorded By Document 01/09/22 11:42 [id number] 01/09/22 11:46 ML Document 01/23/22 10:53 [facility] [id number] 01/23/22 10:57 BMF 01/09/22 01/23/22 11:42 10:53 Wound Center Nurse 1 #7 R buttock -Combined with other wound No -Current Size (cm) - Length 0.5 0.1 -Current Size (cm) - Width 0.5 0.1 -Current Size (cm) - Depth 0.1 0.1 -Total Square Cm 0.25 0.01 -Date of Last Picture (Recall this 01/23/22 field) -Photo Taken Yes -Epithelialization Large 67-100% -Tunneling No -Undermining/Tunneling No -Circular Undermining No -Wound Margin Distinct, Outline Attached -Granulation Quality [place] -Slough/Fibrin Yes -Necrosis Amt None Present (0 %) -Texture (Janene-wound Skin Appearance) Assessed -Moisture (Janene-wound Skin Appearance) Assessed -Color (Janene-wound Skin Appearance) Assessed -Temperature (Janene-wound Skin No Abnormality Appearance) (Pt Warm) -Tenderness on Palpation (Janene-wound No Skin Appearance) -Ulcer Cleansing Soap and Water -Foul Odor after Cleansing No -Anesthetic Used 4% Lidocaine Solution 6. R posterior labia -Combined with other wound No -Current Size (cm) - Length 3 3.3 -Current Size (cm) - Width 3 3.2 -Current Size (cm) - Depth 0.3 2.5 -Total Square Cm 9 10.56 -Date of Last Picture (Recall this 01/23/22 field) -Photo Taken Yes -Epithelialization Small 1-33% -Tunneling No -Undermining/Tunneling Yes Yes -Undermining/Tunneling Starts (O'clock 1 12 ) -Undermining/Tunneling Ends (O'clock) 2 2 -Maximum Distance (cm) 4.6 4 -Circular Undermining No -Exudate Amt Medium Large -Exudate Type Serosanguineous Serosanguineous -Wound Margin Distinct, Distinct, Outline Outline Attached Attached -Granulation Amt Medium (34-66%) Medium (34-66%) -Granulation Quality [place] Red -Slough/Fibrin Yes Yes -Necrosis Amt Medium (34-66%) Medium (34-66%) -Necrotic Tissue Type Adherent Slough Adherent Slough -Texture (Janene-wound Skin Appearance) Assessed Assessed, Scarring -Moisture (Janene-wound Skin Appearance) Assessed Assessed -Color (Janene-wound Skin Appearance) Assessed Assessed -Temperature (Janene-wound Skin No Abnormality No Abnormality Appearance) (Pt Warm) (Pt Warm) -Tenderness on Palpation (Janene-wound No No Skin Appearance) -Ulcer Cleansing Soap and Water Soap and Water -Foul Odor after Cleansing No No -Anesthetic Used 4% Lidocaine 4% Lidocaine Solution Solution WC - Nurse 2 - General Ulcer CM Notes Start: 01/09/22 11:42 Freq: Status: Active Protocol: Activity Type Activity Date Activity User E-Sign Co-Sign Detail Recorded Client Recorded Date Recorded By Document 01/09/22 12:05 MW [id number] 01/09/22 12:29 MW Document 01/23/22 11:08 MW [id number] 01/23/22 11:35 MW 01/09/22 01/23/22 12:05 11:08 Wound Center Nurse 2 #7 R buttock -Time 12:06 11:08 -Correct Patient Yes Yes -Correct Side, Site, Position Yes Yes -Correct Procedure Yes Yes -Procedure Performed No No -Post Debridement (cm) - Length 0.2 0 -Post Debridement (cm) - Width 0.3 0 -Post Debridement (cm) - Depth 0.1 0 -Total Square (Post) (cm) 0.06 0 -Area of Debridement (cm) - Length 0.2 -Area of Debridement (cm) - Width 0.3 -Total Square (Area) (cm) 0.06 -Tunneling No -Undermining/Tunneling No -Circular Undermining No -Wound/Ulcer Outcome Not Healed Healed- Epithelialized -Bleeding Controlled with NA -Treatment Response Procedure Tolerated Well 6. R posterior labia -Time 12:06 11:08 -Correct Patient Yes Yes -Correct Side, Site, Position Yes Yes -Correct Procedure Yes Yes -Procedure Performed Yes Yes -Type of Procedure Debridement Debridement -Clinical Debridement Subcutaneous Subcutaneous -Tissue Removed Subcutaneous Subcutaneous -Post Debridement (cm) - Length 3.8 3.6 -Post Debridement (cm) - Width 3.2 2.5 -Post Debridement (cm) - Depth 1.8 1.9 -Total Square (Post) (cm) 12.16 9.00 -Area of Debridement (cm) - Length 3.8 3.6 -Area of Debridement (cm) - Width 3.2 2.5 -Total Square (Area) (cm) 12.16 9.00 -Tunneling No No -Undermining/Tunneling Yes Yes -Undermining/Tunneling Starts (O'clock 1 1 ) -Undermining/Tunneling Ends (O'clock) 2 2 -Maximum Distance (cm) 3.4 3.7 -Circular Undermining No No -Wound/Ulcer Outcome Not Healed Not Healed -Ulcer Cleansing Rinsed/ Rinsed/ Irrigated with Irrigated with Saline Saline -Foul Odor after Cleansing No No -Bioengineered Tissue No No -Bleeding Controlled with Pressure Pressure -Offloading No No -Treatment Response Procedure Procedure Tolerated Well Tolerated Well -Debridement - Subq, 1st 20sq cm Yes Yes Pain Scale: 0-10 Numeric Is Patient Pain Free? Yes Yes WC - Nurse 3 - General Ulcer D/C NN Start: 01/09/22 11:42 Freq: Status: Active Protocol: Activity Type Activity Date Activity User E-Sign Co-Sign Detail Recorded Client Recorded Date Recorded By Document 01/09/22 12:44 ML [id number] 01/09/22 12:47 ML Document 01/23/22 11:41 ML [id number] 01/23/22 11:42 ML 01/09/22 01/23/22 12:44 11:41 Wound Care Nurse 3 #7 R buttock -Ulcer Cleansing Rinsed/ Irrigated with Saline -Primary Dressing Applied Promogran -Other Dressing foam dressing -Promogran 1 6. R posterior labia -Primary Dressing Applied Aquacel Extra Aquacel Extra -Other Dressing abd abd -Primary Dressing Covered/Secured with Dry Gauze, Dry Gauze, Secured with Secured with Tape Tape -Aquacel Extra 1 1 Pain Scale: 0-10 Numeric Is Patient Pain Free? Yes Yes Assessment/Plan Assessment/Plan (1) Bed confinement status: CODE(S): Z74.01 - Bed confinement status (2) Complete paraplegia: CODE(S): G82.21 - Paraplegia, complete (3) Pressure ulcer of right buttock, stage 3: CODE(S): L89.313 - Pressure ulcer of right buttock, stage 3 (4) Other complications of skin graft (allograft) (autograft): CODE(S): T86.828 - Other complications of skin graft (allograft) (autograft) (5) Decubitus ulcer of coccygeal region, stage 2: CODE(S): L89.152 - Pressure ulcer of sacral region, stage 2 (6) Pressure injury, stage 4, with gangrene: CODE(S): I96 - Gangrene, not elsewhere classified; L89.94 - Pressure ulcer of unspecified site, stage 4 (7) Psoriasis: CODE(S): L40.9 - Psoriasis, unspecified (8) Multiple sclerosis: CODE(S): G35 - Multiple sclerosis PLAN: Zoey's ulcers were evaluated and posterior labia ulcer debrided today at the wound healing center. Ulcer of right buttock/gluteal fold is healed. Amniofix product applied today per elementary educator guidelines, covered with adaptic touch after rehydration with hydrogel and secured with steri-strips. Wound vac has been discontinued as it has not been significantly helpful in improving the size of her wound. Ulcer will be dressed with secondary dressings over the adaptic touch of Aquacel extra packed into the ulcer cavity and covered with gauze and ABD. She will continue ciprofloxacin but decreased to once daily. Gabapentin continued. Due to the poor progression of her ulcer, she would benefit from application of a skin substitute such as Epifix in order to heal her ulcer and hopefully avoid need for surgical treatment and closure with a skin flap or graft. Labs reveal adequate nutrition and otherwise were not significantly abnormal. Will recheck labs. Encouraged increased protein intake to support nutrition and optimize healing. Encouraged offloading of her right buttock/labia as much as possible in order to heal the ulcer. Discussed benefit of alternating pressure mattress as she is spending 98% of the day in bed in order to avoid pressure to the ulcer and promote wound healing. Alternating pressure mattress is medically necessary given that she is unable to adjust herself and it is becoming more difficult for her to continually move her and offload her to prevent ulcers and heal her current ulcer. She and her were advised to call with any concerns or increased drainage, erythema or odor. She will return in 1 week for wound care.
== END 2022-01-26 23:59 ==
LOC: WC 10:30
PROVIDERS: PCP Family Medicine; Visit Provider Family Medicine
DX: L89.314 Pressure ulcer of right buttock, stage 4 (principal); I96 Gangrene, not elsewhere classified; G82.21 Paraplegia, complete; L89.152 Pressure ulcer of sacral region, stage 2; G35 Multiple sclerosis; L40.9 Psoriasis, unspecified; Z74.01 Bed confinement status
CPT/HCPCS: 11042

== ENCOUNTER 2022-02-20 11:00 | Outpatient (RCR) | payer MEDICARE, SELFPAY ==
[2022-01-27 00:22] VITALS: BP 144/78; PULSE 81; RESP 16; TEMP 35.8; BMI 62.1
[2022-01-30 11:10] VITALS: BP 130/60; PULSE 80; RESP 20; TEMP 36.4; BMI 62.1
--- NOTE | 2022-01-30 14:00 | PN.PCM_ITS ---
History of Present Illness Date of Service: 01/30/22 Chief Complaint: Right posterior labial pressure sore, Stage III History of Wound: Zoey is a 66 yo female that is bed bound/wheelchair bound from complications of MS that presents to the wound healing center today for evaluation and treatment of a pressure ulcer of her right posterior labia that has been present since January 2021. She had been doing well but had a pressure ulcer of her right posterior labia develop in January 2021 after an abrasion from transferring after a shower. Her began applying Santyl and Aquacel Ag for several weeks and then Aquacel Ag alone for moderate drainage to the wound at that time and it was nearly healed until several weeks ago she was at a bridal shower and was out of bed for a longer period of time and the following day there was significant bruising to the area and it began to become larger and drain more. For the last 2 weeks he had returned to applying Santyl and Aquacel Extra to the wound but was not noticing significant improvement and called to be seen at the wound healing center. Her helps with her care and he reports that she has significant vaginal drainage for the last several months since she has been being treated with Estradiol for vaginal itching. She uses a tablet vaginally 3 times/week and her notes that there is copious clear-king vaginal discharge. She has a suprapubic catheter in place so it is not likely that it is urine that is leaking. He finds it very difficult to keep the wound dry due to this drainage. She has an upcoming appointment with her industrial psychology teacher on 07/16/2021 for recheck. She currently is not taking any antibiotics and she has not undergone any wound cultures of this ulcer. She denies fever, chills, nausea, vomiting or other systemic signs of infection. There is moderate to heavy drainage from the ulcer and they have been using Mepilix with border and Aquacel Ag and Santyl for the last 2 weeks. 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 Subjective Subjective Zoey's ulcer continues to improve. She no longer has necrotic tissue or significant slough at the base of the wound. Drainage is still heavy at times but decreased. She has had improvement in vaginal discharge since discontinuing the use of estradiol. She continues on ciprofloxacin. She has decreased cipro to once daily. Objective Data Objective Data Vital Signs: Vital Signs Temp Pulse Resp BP 97.6 F L 80 20 H 130/60 H 01/30/22 11:10 01/30/22 11:10 01/30/22 11:10 01/30/22 11:10 Weight: 180 kg Body Mass Index (BMI) 62.1 Physical Exam Const alert, oriented x3 and no apparent distress General Appearance: cooperative and comfortable HEENT normocephalic and head/scalp atraumatic Resp normal respiratory effort and normal air movement Effort and Inspection: able to speak in complete sentences Cardio regular rate and regular rhythm Extremity General Extremity: edema bilateral lower extremity Details: trace Skin Wounds: wounds noted Wound Narrative: as in clinical panel Psych mental status grossly normal, thought process normal, cooperative and affect normal Debridement Note Debridement Note Wound debrided: right posterior labia Laterality: Right Wound Grade/Stage: Stage III Type of Debridement: Excisional debridement Anesthesia Used: 4% Lidocaine Solution Depth: Down to and including healthy tissue, in the subcutaneous layer and to muscle Percentage of wound debrided: 100 Instrument Used: 5mm curette Tissue Removed: Yellow slough, devitalized tissue Severity: Fat Layer Exposed Amount of bleeding with debridement: Mild Bleeding Controlled with: Compression and gauze Patient tolerated procedure: Patient tolerated procedure well Post-Debridement Measurements and Additional Note: Post-Debridement Measurements/Treatment LOUISE - Nurse 1 - General Ulcer Assessment Start: 01/30/22 11:10 Freq: Status: Active Protocol: LINK Activity Type Activity Date Activity User E-Sign Co-Sign Detail Recorded Client Recorded Date Recorded By Document 01/30/22 11:10 DL [id number] 01/30/22 11:22 DL 01/30/22 11:10 LOUISE - Today's Visit Information Type of service Follow-up Visit (Physician/SHAREMILKER ) Arrival Mode Wheelchair Transfer Assistance Doug Lift Transfer Assist (Other) x2 Patient Identification Verified (Name & Yes ) Patient Requires Transmission-Based No Precautions Height and Weight Body Mass Index (BMI) 62.1 BMI Classification Obese Vital Signs Temperature (97.8 F-99.1 F) 97.6 F L Temperature Source Temporal Pulse Rate (60-100) 80 Pulse Location Monitor Respiratory Rate (12-18) 20 H Respiratory rate source Observation Blood Pressure (90/60-120/80) 130/60 H Blood Pressure Mean (mm Hg) 83 Source Monitor History Since Last Visit- (Skip if this is Patient's initial visit) Have you changed medications since your No last visit? Any new allergies or adverse reactions No Had a fall/change in ADL's that may No increase risk of falls Signs or symptoms of abuse and/or No neglect since last visit Have you been in the hospital since your No last visit? Has dressing in place as prescribed Yes Has compression in place as prescribed N/A Has offloadiing in place as prescribed Yes Experienced any changes in pain level or No management Pain Scale: 0-10 Numeric Is Patient Pain Free? Yes WC - Nurse 1 - General Ulcer Measurement Start: 01/30/22 11:10 Freq: Status: Active Protocol: Activity Type Activity Date Activity User E-Sign Co-Sign Detail Recorded Client Recorded Date Recorded By Document 01/30/22 11:10 DL [id number] 01/30/22 11:22 DL 01/30/22 11:10 Wound Center Nurse 1 6. R posterior labia -Current Size (cm) - Length 3.5 -Current Size (cm) - Width 3.5 -Current Size (cm) - Depth 1.8 -Total Square Cm 12.25 -Tunneling No -Undermining/Tunneling Yes -Undermining/Tunneling Starts (O'clock 11 ) -Undermining/Tunneling Ends (O'clock) 1 -Maximum Distance (cm) 2.8 -Circular Undermining No -Exudate Amt Large -Exudate Type Serosanguineous -Wound Margin Thickened & Rolled Under -Granulation Amt Medium (34-66%) -Granulation Quality [place],Red -Slough/Fibrin Yes -Necrosis Amt Small (1-33%) -Structure Exposed N/A -Texture (Janene-wound Skin Appearance) Assessed, Scarring -Moisture (Janene-wound Skin Appearance) Assessed -Color (Janene-wound Skin Appearance) Assessed -Temperature (Janene-wound Skin No Abnormality Appearance) (Pt Warm) -Tenderness on Palpation (Janene-wound No Skin Appearance) -Ulcer Cleansing Wound Cleanser -Anesthetic Used 4% Lidocaine Solution, Cetacaine WC - Nurse 2 - General Ulcer CM Notes Start: 01/30/22 11:10 Freq: Status: Active Protocol: Activity Type Activity Date Activity User E-Sign Co-Sign Detail Recorded Client Recorded Date Recorded By Document 01/30/22 11:44 MW [id number] 01/30/22 12:07 MW 01/30/22 11:44 Wound Center Nurse 2 -Time 11:44 -Correct Patient Yes -Correct Side, Site, Position Yes -Correct Procedure Yes -Procedure Performed Yes -Type of Procedure Debridement -Clinical Debridement Subcutaneous -Tissue Removed Subcutaneous -Post Debridement (cm) - Length 3.8 -Post Debridement (cm) - Width 3.0 -Post Debridement (cm) - Depth 1.5 -Total Square (Post) (cm) 11.40 -Area of Debridement (cm) - Length 3.8 -Area of Debridement (cm) - Width 3.0 -Total Square (Area) (cm) 11.40 -Tunneling No -Undermining/Tunneling Yes -Undermining/Tunneling Starts (O'clock 1 ) -Undermining/Tunneling Ends (O'clock) 2 -Maximum Distance (cm) 2.6 -Circular Undermining No -Wound/Ulcer Outcome Not Healed -Ulcer Cleansing Rinsed/ Irrigated with Saline -Foul Odor after Cleansing No -Bioengineered Tissue No -Bleeding Controlled with Pressure -Offloading No -Treatment Response Procedure Tolerated Well -Debridement - Subq, 1st 20sq cm Yes Pain Scale: 0-10 Numeric Is Patient Pain Free? Yes - Nurse 3 - General Ulcer D/C NN Start: 01/30/22 11:10 Freq: Status: Active Protocol: Activity Type Activity Date Activity User E-Sign Co-Sign Detail Recorded Client Recorded Date Recorded By Document 01/30/22 12:25 DL [id number] 01/30/22 12:37 DL 01/30/22 12:25 Wound Care Nurse 3 6. R posterior labia -Ulcer Cleansing Soap and Water -Foul Odor after Cleansing No -Primary Dressing Applied Mepilex Border -Primary Dressing Covered/Secured with Dry Gauze, Secured with Tape -Other Covering aquacel Ex -Aquacel Extra 1 -Mepilex Border 1 Treatment Response Procedure Tolerated Well Pain Scale: 0-10 Numeric Is Patient Pain Free? Yes WC - Visit Discharge Discharge Condition Stable Ambulatory Status Wheelchair Transportation Private Auto Accompanied by Facility Type Home Health Orders Sent Yes Assessment/Plan Assessment/Plan (1) Bed confinement status: CODE(S): Z74.01 - Bed confinement status (2) Complete paraplegia: CODE(S): G82.21 - Paraplegia, complete (3) Pressure ulcer of right buttock, stage 3: CODE(S): L89.313 - Pressure ulcer of right buttock, stage 3 (4) Debility: CODE(S): R53.81 - Other malaise (5) Multiple sclerosis: CODE(S): G35 - Multiple sclerosis (6) Psoriasis: CODE(S): L40.9 - Psoriasis, unspecified PLAN: Zoey's ulcers were evaluated and posterior labia ulcer debrided today at the wound healing center. Ulcer of right buttock/gluteal fold is healed. Amniofix product applied today per assistant director of plant operations guidelines, covered with adaptic touch after rehydration with hydrogel and secured with steri-strips. Wound vac has been discontinued as it has not been significantly helpful in improving the size of her wound. Ulcer will be dressed with secondary dressings over the adaptic touch of Aquacel extra packed into the ulcer cavity and covered with gauze and ABD. She will continue ciprofloxacin but decreased to once daily. Gabapentin continued. Due to the poor progression of her ulcer, she would benefit from application of a skin substitute such as Epifix in order to heal her ulcer and hopefully decrease size with future need for surgical treatment and closure with a skin flap or graft. Labs reveal adequate nutrition and otherwise were not significantly abnormal. Encouraged increased protein intake to support nutrition and optimize healing. Encouraged offloading of her right buttock/labia as much as possible in order to heal the ulcer. Discussed benefit of alternating pressure mattress as she is spending 98% of the day in bed in order to avoid pressure to the ulcer and promote wound healing. Alternating pressure mattress is medically necessary given that she is unable to adjust herself and it is becoming more difficult for her to continually move her and offload her to prevent ulcers and heal her current ulcer and this has been received and she is using this daily with improvement in her ulcer. She and her were advised to call with any concerns or increased drainage, erythema or odor. She will return in 1 week for wound care.
[2022-02-06 11:08] VITALS: BP 146/77; PULSE 97; RESP 18; TEMP 36.6; BMI 62.1
--- NOTE | 2022-02-06 12:20 | PCM.WC.PN ---
History of Present Illness Date of Service: 02/06/22 Chief Complaint: Right posterior labial pressure sore, Stage III History of Wound: Zoey is a 66 yo female that is bed bound/wheelchair bound from complications of MS that presents to the wound healing center today for evaluation and treatment of a pressure ulcer of her right posterior labia that has been present since January 2021. She had been doing well but had a pressure ulcer of her right posterior labia develop in January 2021 after an abrasion from transferring after a shower. Her began applying Santyl and Aquacel Ag for several weeks and then Aquacel Ag alone for moderate drainage to the wound at that time and it was nearly healed until several weeks ago she was at a bridal shower and was out of bed for a longer period of time and the following day there was significant bruising to the area and it began to become larger and drain more. For the last 2 weeks he had returned to applying Santyl and Aquacel Extra to the wound but was not noticing significant improvement and called to be seen at the wound healing center. Her helps with her care and he reports that she has significant vaginal drainage for the last several months since she has been being treated with Estradiol for vaginal itching. She uses a tablet vaginally 3 times/week and her notes that there is copious clear-king vaginal discharge. She has a suprapubic catheter in place so it is not likely that it is urine that is leaking. He finds it very difficult to keep the wound dry due to this drainage. She has an upcoming appointment with her small craft operator on 07/16/2021 for recheck. She currently is not taking any antibiotics and she has not undergone any wound cultures of this ulcer. She denies fever, chills, nausea, vomiting or other systemic signs of infection. There is moderate to heavy drainage from the ulcer and they have been using Mepilix with border and Aquacel Ag and Santyl for the last 2 weeks. 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 Subjective Subjective Zoey's ulcer continues to improve. She no longer has necrotic tissue or significant slough at the base of the wound. Drainage is still heavy at times but decreased. She has had improvement in vaginal discharge since discontinuing the use of estradiol. She continues on ciprofloxacin. She has decreased cipro to once daily. Objective Data Objective Data Vital Signs: Vital Signs Temp Pulse Resp BP 98 F 97 18 146/77 H 02/06/22 11:08 02/06/22 11:08 02/06/22 11:08 02/06/22 11:08 Weight: 180 kg Body Mass Index (BMI) 62.1 Physical Exam Const alert, oriented x3 and no apparent distress General Appearance: cooperative and comfortable HEENT normocephalic and head/scalp atraumatic Resp normal respiratory effort and normal air movement Effort and Inspection: able to speak in complete sentences Cardio regular rate and regular rhythm Extremity General Extremity: edema bilateral lower extremity Details: trace Skin Wounds: wounds noted Wound Narrative: as in clinical panel Psych mental status grossly normal, thought process normal, cooperative and affect normal Debridement Note Debridement Note Post-Debridement Measurements and Additional Note: Post-Debridement Measurements/Treatment - Nurse 1 - General Ulcer Assessment Start: 01/30/22 11:10 Freq: Status: Active Protocol: LOUISE.LOWSPT Activity Type Activity Date Activity User E-Sign Co-Sign Detail Recorded Client Recorded Date Recorded By Document 01/30/22 11:10 DL [id number] 01/30/22 11:22 DL Document 02/06/22 11:08 RB [id number] 02/06/22 11:12 RB 01/30/22 02/06/22 11:10 11:08 - Today's Visit Information Type of service Follow-up Visit Follow-up Visit (Physician/PROMOTION PRODUCER (Physician/PROMOTION PRODUCER ) ) Arrival Mode Wheelchair Wheelchair Transfer Assistance Doug Lift Manual Transfer Assist (Other) x2 Patient Identification Verified (Name & Yes Yes ) Patient Requires Transmission-Based No No Precautions Height and Weight Body Mass Index (BMI) 62.1 62.1 BMI Classification Obese Obese Vital Signs Temperature (97.8 F-99.1 F) 97.6 F L 98 F Temperature Source Temporal Temporal Pulse Rate (60-100) 80 97 Pulse Location Monitor Monitor Respiratory Rate (12-18) 20 H 18 Respiratory rate source Observation Observation Blood Pressure (90/60-120/80) 130/60 H 146/77 H Blood Pressure Mean (mm Hg) 83 100 Source Monitor Monitor Position Semi-Fowlers Blood Pressure Location Left Arm History Since Last Visit- (Skip if this is Patient's initial visit) Have you changed medications since your No No last visit? Any new allergies or adverse reactions No No Had a fall/change in ADL's that may No No increase risk of falls Signs or symptoms of abuse and/or No No neglect since last visit Have you been in the hospital since your No No last visit? Has dressing in place as prescribed Yes Yes Has compression in place as prescribed N/A No Has offloadiing in place as prescribed Yes No Experienced any changes in pain level or No No management Pain Scale: 0-10 Numeric Is Patient Pain Free? Yes Yes WC - Nurse 1 - General Ulcer Measurement Start: 01/30/22 11:10 Freq: Status: Active Protocol: Activity Type Activity Date Activity User E-Sign Co-Sign Detail Recorded Client Recorded Date Recorded By Document 01/30/22 11:10 DL [id number] 01/30/22 11:22 DL Document 02/06/22 11:08 RB [id number] 02/06/22 11:12 RB 01/30/22 02/06/22 11:10 11:08 Wound Center Nurse 1 6. R posterior labia -Combined with other wound No -Current Size (cm) - Length 3.5 4 -Current Size (cm) - Width 3.5 3.1 -Current Size (cm) - Depth 1.8 2 -Total Square Cm 12.25 12.4 -Tunneling No No -Undermining/Tunneling Yes Yes -Undermining/Tunneling Starts (O'clock 11 12 ) -Undermining/Tunneling Ends (O'clock) 1 1 -Maximum Distance (cm) 2.8 4 -Circular Undermining No No -Exudate Amt Large Large -Exudate Type Serosanguineous Serosanguineous -Wound Margin Thickened & Thickened & Rolled Under Rolled Under -Granulation Amt Medium (34-66%) Medium (34-66%) -Granulation Quality [place],Red [place] -Slough/Fibrin Yes Yes -Necrosis Amt Small (1-33%) Small (1-33%) -Necrotic Tissue Type Adherent Slough -Structure Exposed N/A N/A -Texture (Janene-wound Skin Appearance) Assessed, Assessed, Scarring Scarring -Moisture (Janene-wound Skin Appearance) Assessed Assessed -Color (Janene-wound Skin Appearance) Assessed Assessed -Temperature (Janene-wound Skin No Abnormality No Abnormality Appearance) (Pt Warm) (Pt Warm) -Tenderness on Palpation (Janene-wound No No Skin Appearance) -Ulcer Cleansing Wound Cleanser Wound Cleanser -Foul Odor after Cleansing No -Anesthetic Used 4% Lidocaine 5% Lidocaine Solution, Gel Cetacaine WC - Nurse 2 - General Ulcer CM Notes Start: 01/30/22 11:10 Freq: Status: Active Protocol: Activity Type Activity Date Activity User E-Sign Co-Sign Detail Recorded Client Recorded Date Recorded By Document 01/30/22 11:44 MW [id number] 01/30/22 12:07 MW Document 02/06/22 11:28 MW [id number] 02/06/22 11:54 MW 01/30/22 02/06/22 11:44 11:28 Wound Center Nurse 2 6. R posterior labia -Time 11:44 11:28 -Correct Patient Yes Yes -Correct Side, Site, Position Yes Yes -Correct Procedure Yes Yes -Procedure Performed Yes Yes -Type of Procedure Debridement Debridement -Clinical Debridement Subcutaneous Subcutaneous -Tissue Removed Subcutaneous Subcutaneous -Post Debridement (cm) - Length 3.8 3.5 -Post Debridement (cm) - Width 3.0 2.9 -Post Debridement (cm) - Depth 1.5 1.4 -Total Square (Post) (cm) 11.40 10.15 -Area of Debridement (cm) - Length 3.8 3.5 -Area of Debridement (cm) - Width 3.0 2.9 -Total Square (Area) (cm) 11.40 10.15 -Tunneling No No -Undermining/Tunneling Yes Yes -Undermining/Tunneling Starts (O'clock 1 1 ) -Undermining/Tunneling Ends (O'clock) 2 2 -Maximum Distance (cm) 2.6 2.8 -Circular Undermining No No -Wound/Ulcer Outcome Not Healed Not Healed -Ulcer Cleansing Rinsed/ Rinsed/ Irrigated with Irrigated with Saline Saline -Foul Odor after Cleansing No No -Bioengineered Tissue No No -Bleeding Controlled with Pressure Pressure -Offloading No No -Treatment Response Procedure Procedure Tolerated Well Tolerated Well -Debridement - Subq, 1st 20sq cm Yes Yes Pain Scale: 0-10 Numeric Is Patient Pain Free? Yes Yes - Nurse 3 - General Ulcer D/C NN Start: 01/30/22 11:10 Freq: Status: Active Protocol: Activity Type Activity Date Activity User E-Sign Co-Sign Detail Recorded Client Recorded Date Recorded By Document 01/30/22 12:25 DL [id number] 01/30/22 12:37 DL 01/30/22 12:25 Wound Care Nurse 3 6. R posterior labia -Ulcer Cleansing Soap and Water -Foul Odor after Cleansing No -Primary Dressing Applied Mepilex Border -Primary Dressing Covered/Secured with Dry Gauze, Secured with Tape -Other Covering aquacel Ex -Aquacel Extra 1 -Mepilex Border 1 Treatment Response Procedure Tolerated Well Pain Scale: 0-10 Numeric Is Patient Pain Free? Yes WC - Visit Discharge Discharge Condition Stable Ambulatory Status Wheelchair Transportation Private Auto Accompanied by Facility Type Home Health Orders Sent Yes Assessment/Plan Assessment/Plan (1) Bed confinement status: CODE(S): Z74.01 - Bed confinement status (2) Complete paraplegia: CODE(S): G82.21 - Paraplegia, complete (3) Pressure ulcer of right buttock, stage 3: CODE(S): L89.313 - Pressure ulcer of right buttock, stage 3 (4) Debility: CODE(S): R53.81 - Other malaise (5) Multiple sclerosis: CODE(S): G35 - Multiple sclerosis (6) Psoriasis: CODE(S): L40.9 - Psoriasis, unspecified PLAN: Zoey's ulcers were evaluated and posterior labia ulcer debrided today at the wound healing center. Ulcer of right buttock/gluteal fold is healed. Amniofix product applied today per rivet bucker guidelines, covered with adaptic touch after rehydration with hydrogel and secured with steri-strips. Wound vac has been discontinued as it has not been significantly helpful in improving the size of her wound. Ulcer will be dressed with secondary dressings over the adaptic touch of Aquacel extra packed into the ulcer cavity and covered with gauze and ABD. She will continue ciprofloxacin but decreased to once daily. Gabapentin continued. Due to the poor progression of her ulcer, she would benefit from application of a skin substitute such as Epifix in order to heal her ulcer and hopefully decrease size with future need for surgical treatment and closure with a skin flap or graft. Labs reveal adequate nutrition and otherwise were not significantly abnormal. Encouraged increased protein intake to support nutrition and optimize healing. Encouraged offloading of her right buttock/labia as much as possible in order to heal the ulcer. Discussed benefit of alternating pressure mattress as she is spending 98% of the day in bed in order to avoid pressure to the ulcer and promote wound healing. Alternating pressure mattress is medically necessary given that she is unable to adjust herself and it is becoming more difficult for her to continually move her and offload her to prevent ulcers and heal her current ulcer and this has been received and she is using this daily with improvement in her ulcer. She and her were advised to call with any concerns or increased drainage, erythema or odor. She will return in 1 week for wound care.
[2022-02-13 11:19] VITALS: BP 140/74; PULSE 80; RESP 18; TEMP 36.4; BMI 62.1
--- NOTE | 2022-02-13 14:56 | PN.PCM_ITS ---
History of Present Illness Date of Service: 02/13/22 Chief Complaint: Right posterior labial pressure sore, Stage III History of Wound: Zoey is a 66 yo female that is bed bound/wheelchair bound from complications of MS that presents to the wound healing center today for evaluation and treatment of a pressure ulcer of her right posterior labia that has been present since January 2021. She had been doing well but had a pressure ulcer of her right posterior labia develop in January 2021 after an abrasion from transferring after a shower. Her began applying Santyl and Aquacel Ag for several weeks and then Aquacel Ag alone for moderate drainage to the wound at that time and it was nearly healed until several weeks ago she was at a bridal shower and was out of bed for a longer period of time and the following day there was significant bruising to the area and it began to become larger and drain more. For the last 2 weeks he had returned to applying Santyl and Aquacel Extra to the wound but was not noticing significant improvement and called to be seen at the wound healing center. Her helps with her care and he reports that she has significant vaginal drainage for the last several months since she has been being treated with Estradiol for vaginal itching. She uses a tablet vaginally 3 times/week and her notes that there is copious clear-king vaginal discharge. She has a suprapubic catheter in place so it is not likely that it is urine that is leaking. He finds it very difficult to keep the wound dry due to this drainage. She has an upcoming appointment with her timber framer helper on 07/16/2021 for recheck. She currently is not taking any antibiotics and she has not undergone any wound cultures of this ulcer. She denies fever, chills, nausea, vomiting or other systemic signs of infection. There is moderate to heavy drainage from the ulcer and they have been using Mepilix with border and Aquacel Ag and Santyl for the last 2 weeks. 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 Subjective Subjective Zoey's ulcer continues to be stable. She no longer has necrotic tissue or significant slough at the base of the wound. Drainage is still heavy at times but decreased. She has had improvement in vaginal discharge since discontinuing the use of estradiol. She continues on ciprofloxacin. She has decreased cipro to once daily. Objective Data Objective Data Vital Signs: Vital Signs Temp Pulse Resp BP 97.6 F L 80 18 140/74 H 02/13/22 11:19 02/13/22 11:19 02/13/22 11:19 02/13/22 11:19 Weight: 180 kg Body Mass Index (BMI) 62.1 Physical Exam Const alert, oriented x3 and no apparent distress General Appearance: cooperative and comfortable HEENT normocephalic and head/scalp atraumatic Resp normal respiratory effort and normal air movement Effort and Inspection: able to speak in complete sentences Cardio regular rate and regular rhythm Extremity General Extremity: edema bilateral lower extremity Details: trace Skin Wounds: wounds noted Wound Narrative: as in clinical panel Psych mental status grossly normal, thought process normal, cooperative and affect normal Debridement Note Debridement Note Wound debrided: right posterior labia Laterality: Right Wound Grade/Stage: Stage IV Type of Debridement: Excisional debridement Anesthesia Used: 5% Lidocaine Gel Depth: Down to and including healthy tissue, in the subcutaneous layer and to muscle Percentage of wound debrided: 100 Instrument Used: 5mm curette Tissue Removed: Yellow slough, devitalized tissue Severity: Fat Layer Exposed Amount of bleeding with debridement: Mild Bleeding Controlled with: Compression and gauze Patient tolerated procedure: Patient tolerated procedure well Post-Debridement Measurements and Additional Note: Post-Debridement Measurements/Treatment LOUISE - Nurse 1 - General Ulcer Assessment Start: 01/30/22 11:10 Freq: Status: Active Protocol: LINK Activity Type Activity Date Activity User E-Sign Co-Sign Detail Recorded Client Recorded Date Recorded By Document 01/30/22 11:10 DL [id number] 01/30/22 11:22 DL Document 02/06/22 11:08 RB [id number] 02/06/22 11:12 RB Document 02/13/22 11:19 RB [id number] 02/13/22 11:20 RB 01/30/22 02/06/22 02/13/22 11:10 11:08 11:19 - Today's Visit Information Type of service Follow-up Visit Follow-up Visit Follow-up Visit (Physician/REFRIGERATION SERVICE INSPECTOR (Physician/REFRIGERATION SERVICE INSPECTOR (Physician/REFRIGERATION SERVICE INSPECTOR ) ) ) Arrival Mode Wheelchair Wheelchair Wheelchair Transfer Assistance Doug Lift Manual Doug Lift Transfer Assist (Other) x2 Patient Identification Verified (Name & Yes Yes Yes ) Patient Requires Transmission-Based No No No Precautions Height and Weight Body Mass Index (BMI) 62.1 62.1 62.1 BMI Classification Obese Obese Obese Vital Signs Temperature (97.8 F-99.1 F) 97.6 F L 98 F 97.6 F L Temperature Source Temporal Temporal Temporal Pulse Rate (60-100) 80 97 80 Pulse Location Monitor Monitor Monitor Respiratory Rate (12-18) 20 H 18 18 Respiratory rate source Observation Observation Observation Blood Pressure (90/60-120/80) 130/60 H 146/77 H 140/74 H Blood Pressure Mean (mm Hg) 83 100 96 Source Monitor Monitor Monitor Position Semi-Fowlers Semi-Fowlers Blood Pressure Location Left Arm Left Arm History Since Last Visit- (Skip if this is Patient's initial visit) Have you changed medications since your No No No last visit? Any new allergies or adverse reactions No No No Had a fall/change in ADL's that may No No No increase risk of falls Signs or symptoms of abuse and/or No No No neglect since last visit Have you been in the hospital since your No No No last visit? Has dressing in place as prescribed Yes Yes Yes Has compression in place as prescribed N/A No Has offloadiing in place as prescribed Yes No Yes Experienced any changes in pain level or No No No management Pain Scale: 0-10 Numeric Is Patient Pain Free? Yes Yes Yes WC - Nurse 1 - General Ulcer Measurement Start: 01/30/22 11:10 Freq: Status: Active Protocol: Activity Type Activity Date Activity User E-Sign Co-Sign Detail Recorded Client Recorded Date Recorded By Document 01/30/22 11:10 DL [id number] 01/30/22 11:22 DL Document 02/06/22 11:08 RB [id number] 02/06/22 11:12 RB Document 02/13/22 11:19 RB [id number] 02/13/22 11:20 RB 01/30/22 02/06/22 02/13/22 11:10 11:08 11:19 Wound Center Nurse 1 6. R posterior labia -Combined with other wound No No -Current Size (cm) - Length 3.5 4 2.8 -Current Size (cm) - Width 3.5 3.1 4 -Current Size (cm) - Depth 1.8 2 1.8 -Total Square Cm 12.25 12.4 11.2 -Tunneling No No No -Undermining/Tunneling Yes Yes Yes -Undermining/Tunneling Starts (O'clock 11 12 ) -Undermining/Tunneling Ends (O'clock) 1 1 2 -Maximum Distance (cm) 2.8 4 2.8 -Circular Undermining No No No -Exudate Amt Large Large Large -Exudate Type Serosanguineous Serosanguineous Serosanguineous -Wound Margin Thickened & Thickened & Thickened & Rolled Under Rolled Under Rolled Under -Granulation Amt Medium (34-66%) Medium (34-66%) Large (67-100%) -Granulation Quality [place] -Slough/Fibrin Yes Yes Yes -Necrosis Amt Small (1-33%) Small (1-33%) Small (1-33%) -Necrotic Tissue Type Adherent Slough Adherent Slough -Structure Exposed N/A N/A N/A -Texture (Janene-wound Skin Appearance) Assessed, Assessed, Assessed, Scarring Scarring Scarring -Moisture (Janene-wound Skin Appearance) Assessed Assessed Assessed -Color (Janene-wound Skin Appearance) Assessed Assessed Assessed -Temperature (Janene-wound Skin No Abnormality No Abnormality No Abnormality Appearance) (Pt Warm) (Pt Warm) (Pt Warm) -Tenderness on Palpation (Janene-wound No No No Skin Appearance) -Ulcer Cleansing Wound Cleanser Wound Cleanser Wound Cleanser -Foul Odor after Cleansing No No -Anesthetic Used 4% Lidocaine 5% Lidocaine 4% Lidocaine Solution, Gel Solution Cetacaine WC - Nurse 2 - General Ulcer CM Notes Start: 01/30/22 11:10 Freq: Status: Active Protocol: Activity Type Activity Date Activity User E-Sign Co-Sign Detail Recorded Client Recorded Date Recorded By Document 01/30/22 11:44 MW [id number] 01/30/22 12:07 MW Document 02/06/22 11:28 MW [id number] 02/06/22 11:54 MW Document 02/13/22 11:41 MW [id number] 02/13/22 12:03 MW 01/30/22 02/06/22 02/13/22 11:44 11:28 11:41 Wound Center Nurse 2 6. R posterior labia -Time 11:44 11:28 11:43 -Correct Patient Yes Yes Yes -Correct Side, Site, Position Yes Yes Yes -Correct Procedure Yes Yes Yes -Procedure Performed Yes Yes Yes -Type of Procedure Debridement Debridement Debridement -Clinical Debridement Subcutaneous Subcutaneous Subcutaneous -Tissue Removed Subcutaneous Subcutaneous Subcutaneous -Post Debridement (cm) - Length 3.8 3.5 3.5 -Post Debridement (cm) - Width 3.0 2.9 3.0 -Post Debridement (cm) - Depth 1.5 1.4 2.7 -Total Square (Post) (cm) 11.40 10.15 10.50 -Area of Debridement (cm) - Length 3.8 3.5 3.5 -Area of Debridement (cm) - Width 3.0 2.9 3.0 -Total Square (Area) (cm) 11.40 10.15 10.50 -Tunneling No No No -Undermining/Tunneling Yes Yes Yes -Undermining/Tunneling Starts (O'clock 1 1 1 ) -Undermining/Tunneling Ends (O'clock) 2 2 2 -Maximum Distance (cm) 2.6 2.8 3.2 -Circular Undermining No No No -Wound/Ulcer Outcome Not Healed Not Healed Not Healed -Ulcer Cleansing Rinsed/ Rinsed/ Rinsed/ Irrigated with Irrigated with Irrigated with Saline Saline Saline -Foul Odor after Cleansing No No No -Bioengineered Tissue No No No -Bleeding Controlled with Pressure Pressure Pressure -Treatment Response Procedure Procedure Procedure Tolerated Well Tolerated Well Tolerated Well -Offloading No No Yes -Type of Offloading Other -Other Type of Offloading low loss air mattress -Assistive Device(s) Wheelchair -Pressure Reduction Specialty bed -Debridement - Subq, 1st 20sq cm Yes Yes Yes Pain Scale: 0-10 Numeric Is Patient Pain Free? Yes Yes Yes WC - Nurse 3 - General Ulcer D/C NN Start: 01/30/22 11:10 Freq: Status: Active Protocol: Activity Type Activity Date Activity User E-Sign Co-Sign Detail Recorded Client Recorded Date Recorded By Document 01/30/22 12:25 DL [id number] 01/30/22 12:37 DL Document 02/06/22 12:19 RB [id number] 02/06/22 12:20 RB Document 02/13/22 12:25 RB [id number] 02/13/22 12:26 RB 01/30/22 02/06/22 02/13/22 12:25 12:19 12:25 Wound Care Nurse 3 6. R posterior labia -Ulcer Cleansing Soap and Water -Foul Odor after Cleansing No -Primary Dressing Applied Mepilex Border Aquacel Extra, Aquacel Extra, Mepilex Border Mepilex Border -Primary Dressing Covered/Secured with Dry Gauze, Secured with Tape -Other Covering aquacel Ex -Aquacel Extra 1 1 1 -Mepilex Border 1 1 1 Treatment Response Procedure Procedure Procedure Tolerated Well Tolerated Well Tolerated Well Pain Scale: 0-10 Numeric Is Patient Pain Free? Yes Yes Yes WC - Visit Discharge Discharge Condition Stable Stable Stable Ambulatory Status Wheelchair Wheelchair Wheelchair Transportation Private Auto Private Auto Private Auto Accompanied by Medication Reconcilliation completed & No No provided to patient/care provider Clinical Summary of Care Provided Yes Yes Notes: [facility] Facility Type Home Health Orders Sent Yes Assessment/Plan Assessment/Plan (1) Bed confinement status: CODE(S): Z74.01 - Bed confinement status (2) Complete paraplegia: CODE(S): G82.21 - Paraplegia, complete (3) Pressure ulcer of right buttock, stage 3: CODE(S): L89.313 - Pressure ulcer of right buttock, stage 3 (4) Debility: CODE(S): R53.81 - Other malaise (5) Multiple sclerosis: CODE(S): G35 - Multiple sclerosis (6) Psoriasis: CODE(S): L40.9 - Psoriasis, unspecified PLAN: Zoey's ulcer was evaluated and posterior labia ulcer debrided today at the wound healing center. Ulcer of right buttock/gluteal fold is healed. Donated tissue product applied today per plug and mold finisher guidelines, covered with adaptic touch after rehydration with hydrogel and secured with steri-strips. Wound vac has been discontinued as it has not been significantly helpful in improving the size of her wound. Ulcer will be dressed with secondary dressings over the adaptic touch of Aquacel extra packed into the ulcer cavity and covered with gauze and ABD. She will continue ciprofloxacin but decreased to once daily. Gabapentin continued. Due to the poor progression of her ulcer, she would benefit from application of a skin substitute such as Epifix in order to heal her ulcer and hopefully decrease size with future need for surgical treatment and closure with a skin flap or graft. Labs reveal adequate nutrition and otherwise were not significantly abnormal. Encouraged increased protein intake to support nutrition and optimize healing. Encouraged offloading of her right buttock/labia as much as possible in order to heal the ulcer. Discussed benefit of alternating pressure mattress as she is spending 98% of the day in bed in order to avoid pressure to the ulcer and promote wound healing. Alternating pressure mattress is medically necessary given that she is unable to adjust herself and it is becoming more difficult for her to continually move her and offload her to prevent ulcers and heal her current ulcer and this has been received and she is using this daily with improvement in her ulcer. She and her were advised to call with any concerns or increased drainage, erythema or odor. She will return in 1 week for wound care.
[2022-02-20 11:56] VITALS: BP 102/46; PULSE 87; RESP 18; TEMP 37.1; BMI 62.1
--- NOTE | 2022-02-20 13:26 | PCM.WC.PN ---
History of Present Illness Date of Service: 02/20/22 Chief Complaint: Right posterior labial pressure sore, Stage III History of Wound: Zoey is a 66 yo female that is bed bound/wheelchair bound from complications of MS that presents to the wound healing center today for evaluation and treatment of a pressure ulcer of her right posterior labia that has been present since January 2021. She had been doing well but had a pressure ulcer of her right posterior labia develop in January 2021 after an abrasion from transferring after a shower. Her began applying Santyl and Aquacel Ag for several weeks and then Aquacel Ag alone for moderate drainage to the wound at that time and it was nearly healed until several weeks ago she was at a bridal shower and was out of bed for a longer period of time and the following day there was significant bruising to the area and it began to become larger and drain more. For the last 2 weeks he had returned to applying Santyl and Aquacel Extra to the wound but was not noticing significant improvement and called to be seen at the wound healing center. Her helps with her care and he reports that she has significant vaginal drainage for the last several months since she has been being treated with Estradiol for vaginal itching. She uses a tablet vaginally 3 times/week and her notes that there is copious clear-king vaginal discharge. She has a suprapubic catheter in place so it is not likely that it is urine that is leaking. He finds it very difficult to keep the wound dry due to this drainage. She has an upcoming appointment with her collection systems consultant on 07/16/2021 for recheck. She currently is not taking any antibiotics and she has not undergone any wound cultures of this ulcer. She denies fever, chills, nausea, vomiting or other systemic signs of infection. There is moderate to heavy drainage from the ulcer and they have been using Mepilix with border and Aquacel Ag and Santyl for the last 2 weeks. 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 Subjective Subjective Zoey's ulcer continues to be stable. She no longer has necrotic tissue or significant slough at the base of the wound. Drainage is still heavy at times but decreased. She has had improvement in vaginal discharge since discontinuing the use of estradiol. She continues on ciprofloxacin. She has decreased cipro to once daily. Objective Data Objective Data Vital Signs: Vital Signs Temp Pulse Resp BP 98.8 F 87 18 102/46 L 02/20/22 11:56 02/20/22 11:56 02/20/22 11:56 02/20/22 11:56 Weight: 180 kg Body Mass Index (BMI) 62.1 Physical Exam Const alert, oriented x3 and no apparent distress General Appearance: cooperative and comfortable HEENT normocephalic and head/scalp atraumatic Resp normal respiratory effort and normal air movement Effort and Inspection: able to speak in complete sentences Cardio regular rate and regular rhythm Extremity General Extremity: edema bilateral lower extremity Details: trace Skin Wounds: wounds noted Wound Narrative: as in clinical panel Psych mental status grossly normal, thought process normal, cooperative and affect normal Debridement Note Debridement Note Wound debrided: right posterior labia Laterality: Right Wound Grade/Stage: Stage 4 Type of Debridement: Excisional debridement Anesthesia Used: 4% Lidocaine Solution Depth: Down to and including healthy tissue, in the subcutaneous layer and to muscle Percentage of wound debrided: 100 Instrument Used: 5mm curette Tissue Removed: Yellow slough, devitalized tissue Severity: Fat Layer Exposed Amount of bleeding with debridement: Mild Bleeding Controlled with: Compression and gauze Patient tolerated procedure: Patient tolerated procedure well Post-Debridement Measurements and Additional Note: Post-Debridement Measurements/Treatment LOUISE - Nurse 1 - General Ulcer Assessment Start: 01/30/22 11:10 Freq: Status: Active Protocol: LINK Activity Type Activity Date Activity User E-Sign Co-Sign Detail Recorded Client Recorded Date Recorded By Document 01/30/22 11:10 DL [id number] 01/30/22 11:22 DL Document 02/06/22 11:08 RB [id number] 02/06/22 11:12 RB Document 02/13/22 11:19 RB [id number] 02/13/22 11:20 RB Document 02/20/22 11:56 ML [id number] 02/20/22 12:01 ML 01/30/22 02/06/2202/13/22 11:10 11:08 11:19 WC - Today's Visit Information Type of service Follow-up Visit Follow-up Visit Follow-up Visit (Physician/BOARD SAW RUNNER (Physician/BOARD SAW RUNNER (Physician/BOARD SAW RUNNER ) ) ) Arrival Mode Wheelchair Wheelchair Wheelchair Transfer Assistance Doug Lift Manual Doug Lift Transfer Assist (Other) x2 Patient Identification Verified (Name & Yes Yes Yes ) Patient Requires Transmission-Based No No No Precautions Safety Precautions Height and Weight Body Mass Index (BMI) 62.1 62.1 62.1 BMI Classification Obese Obese Obese Vital Signs Temperature (97.8 F-99.1 F) 97.6 F L 98 F 97.6 F L Temperature Source Temporal Temporal Temporal Pulse Rate (60-100) 80 97 80 Pulse Location Monitor Monitor Monitor Respiratory Rate (12-18) 20 H 18 18 Respiratory rate source Observation Observation Observation Blood Pressure (90/60-120/80) 130/60 H 146/77 H 140/74 H Blood Pressure Mean (mm Hg) 83 100 96 Source Monitor Monitor Monitor Position Semi-Fowlers Semi-Fowlers Blood Pressure Location Left Arm Left Arm History Since Last Visit- (Skip if this is Patient's initial visit) Have you changed medications since your No No No last visit? Any new allergies or adverse reactions No No No Had a fall/change in ADL's that may No No No increase risk of falls Signs or symptoms of abuse and/or No No No neglect since last visit Have you been in the hospital since your No No No last visit? Has dressing in place as prescribed Yes Yes Yes Has compression in place as prescribed N/A No Has offloadiing in place as prescribed Yes No Yes Experienced any changes in pain level or No No No management Left Footwear Right Footwear Pain Scale: 0-10 Numeric Is Patient Pain Free? Yes Yes Yes 02/20/22 11:56 WC - Today's Visit Information Type of service Follow-up Visit (Physician/BOARD SAW RUNNER ) Arrival Mode Wheelchair Transfer Assistance Doug Lift Transfer Assist (Other) Patient Identification Verified (Name & Yes ) Patient Requires Transmission-Based No Precautions Safety Precautions NA Height and Weight Body Mass Index (BMI) 62.1 BMI Classification Obese Vital Signs Temperature (97.8 F-99.1 F) 98.8 F Temperature Source Temporal Pulse Rate (60-100) 87 Pulse Location Monitor Respiratory Rate (12-18) 18 Respiratory rate source Observation Blood Pressure (90/60-120/80) 102/46 L Blood Pressure Mean (mm Hg) 64 Source Monitor Position Sitting Blood Pressure Location Left Arm History Since Last Visit- (Skip if this is Patient's initial visit) Have you changed medications since your No last visit? Any new allergies or adverse reactions No Had a fall/change in ADL's that may No increase risk of falls Signs or symptoms of abuse and/or No neglect since last visit Have you been in the hospital since your No last visit? Has dressing in place as prescribed Yes Has compression in place as prescribed Yes Has offloadiing in place as prescribed N/A Experienced any changes in pain level or No management Left Footwear Regular Shoe Right Footwear Regular Shoe Pain Scale: 0-10 Numeric Is Patient Pain Free? Yes WC - Nurse 1 - General Ulcer Measurement Start: 01/30/22 11:10 Freq: Status: Active Protocol: Activity Type Activity Date Activity User E-Sign Co-Sign Detail Recorded Client Recorded Date Recorded By Document 01/30/22 11:10 DL [id number] 01/30/22 11:22 DL Document 02/06/22 11:08 RB [id number] 02/06/22 11:12 RB Document 02/13/22 11:19 RB [id number] 02/13/22 11:20 RB Document 02/20/22 11:56 ML [id number] 02/20/22 12:01 ML 01/30/22 02/06/22 02/13/22 11:10 11:08 11:19 Wound Center Nurse 1 6. R posterior labia -Combined with other wound No No -Current Size (cm) - Length 3.5 4 2.8 -Current Size (cm) - Width 3.5 3.1 4 -Current Size (cm) - Depth 1.8 2 1.8 -Total Square Cm 12.25 12.4 11.2 -Tunneling No No No -Tunneling Position (O'clock) -Tunneling Distance (cm) -Tunneling Position #2 (O'clock) -Undermining/Tunneling Yes Yes Yes -Undermining/Tunneling Starts (O'clock 11 12 12 ) -Undermining/Tunneling Ends (O'clock) 1 1 2 -Maximum Distance (cm) 2.8 4 2.8 -Circular Undermining No No No -Exudate Amt Large Large Large -Exudate Type Serosanguineous Serosanguineous Serosanguineous -Wound Margin Thickened & Thickened & Thickened & Rolled Under Rolled Under Rolled Under -Granulation Amt Medium (34-66%) Medium (34-66%) Large (67-100%) -Granulation Quality [place],Red [place] -Slough/Fibrin Yes Yes Yes -Necrosis Amt Small (1-33%) Small (1-33%) Small (1-33%) -Necrotic Tissue Type Adherent Slough Adherent Slough -Structure Exposed N/A N/A N/A -Texture (Janene-wound Skin Appearance) Assessed, Assessed, Assessed, Scarring Scarring Scarring -Moisture (Janene-wound Skin Appearance) Assessed Assessed Assessed -Color (Janene-wound Skin Appearance) Assessed Assessed Assessed -Temperature (Janene-wound Skin No Abnormality No Abnormality No Abnormality Appearance) (Pt Warm) (Pt Warm) (Pt Warm) -Tenderness on Palpation (Janene-wound No No No Skin Appearance) -Ulcer Cleansing Wound Cleanser Wound Cleanser Wound Cleanser -Foul Odor after Cleansing No No -Anesthetic Used 4% Lidocaine 5% Lidocaine 4% Lidocaine Solution, Gel Solution Cetacaine 02/20/22 11:56 Wound Center Nurse 1 6. R posterior labia -Combined with other wound -Current Size (cm) - Length 3.1 -Current Size (cm) - Width 2.9 -Current Size (cm) - Depth 2.3 -Total Square Cm 8.99 -Tunneling Yes -Tunneling Position (O'clock) 12 -Tunneling Distance (cm) 3 -Tunneling Position #2 (O'clock) 2 -Undermining/Tunneling -Undermining/Tunneling Starts (O'clock ) -Undermining/Tunneling Ends (O'clock) -Maximum Distance (cm) -Circular Undermining -Exudate Amt -Exudate Type Serosanguineous -Wound Margin Distinct, Outline Attached -Granulation Amt Medium (34-66%) -Granulation Quality -Slough/Fibrin -Necrosis Amt Medium (34-66%) -Necrotic Tissue Type Adherent Slough -Structure Exposed -Texture (Janene-wound Skin Appearance) Assessed -Moisture (Janene-wound Skin Appearance) Assessed -Color (Janene-wound Skin Appearance) Assessed -Temperature (Janene-wound Skin No Abnormality Appearance) (Pt Warm) -Tenderness on Palpation (Janene-wound No Skin Appearance) -Ulcer Cleansing Soap and Water -Foul Odor after Cleansing -Anesthetic Used 4% Lidocaine Solution WC - Nurse 2 - General Ulcer CM Notes Start: 01/30/22 11:10 Freq: Status: Active Protocol: Activity Type Activity Date Activity User E-Sign Co-Sign Detail Recorded Client Recorded Date Recorded By Document 01/30/22 11:44 MW [id number] 01/30/22 12:07 MW Document 02/06/22 11:28 MW [id number] 02/06/22 11:54 MW Document 02/13/22 11:41 MW [id number] 02/13/22 12:03 MW Document 02/20/22 12:05 MW [id number] 02/20/22 12:22 MW 01/30/22 02/06/22 02/13/22 11:44 11:28 11:41 Wound Center Nurse 2 6. R posterior labia -Time 11:44 11:28 11:43 -Correct Patient Yes Yes Yes -Correct Side, Site, Position Yes Yes Yes -Correct Procedure Yes Yes Yes -Procedure Performed Yes Yes Yes -Type of Procedure Debridement Debridement Debridement -Clinical Debridement Subcutaneous Subcutaneous Subcutaneous -Tissue Removed Subcutaneous Subcutaneous Subcutaneous -Post Debridement (cm) - Length 3.8 3.5 3.5 -Post Debridement (cm) - Width 3.0 2.9 3.0 -Post Debridement (cm) - Depth 1.5 1.4 2.7 -Total Square (Post) (cm) 11.40 10.15 10.50 -Area of Debridement (cm) - Length 3.8 3.5 3.5 -Area of Debridement (cm) - Width 3.0 2.9 3.0 -Total Square (Area) (cm) 11.40 10.15 10.50 -Tunneling No No No -Undermining/Tunneling Yes Yes Yes -Undermining/Tunneling Starts (O'clock 1 1 1 ) -Undermining/Tunneling Ends (O'clock) 2 2 2 -Maximum Distance (cm) 2.6 2.8 3.2 -Circular Undermining No No No -Wound/Ulcer Outcome Not Healed Not Healed Not Healed -Ulcer Cleansing Rinsed/ Rinsed/ Rinsed/ Irrigated with Irrigated with Irrigated with Saline Saline Saline -Foul Odor after Cleansing No No No -Bioengineered Tissue No No No -Bleeding Controlled with Pressure Pressure Pressure -Treatment Response Procedure Procedure Procedure Tolerated Well Tolerated Well Tolerated Well -Offloading No No Yes -Type of Offloading Other -Other Type of Offloading low loss air mattress -Assistive Device(s) Wheelchair -Pressure Reduction Specialty bed -Debridement - Subq, 1st 20sq cm Yes Yes Yes Pain Scale: 0-10 Numeric Is Patient Pain Free? Yes Yes Yes 02/20/22 12:05 Wound Center Nurse 2 6. R posterior labia -Time 12:09 -Correct Patient Yes -Correct Side, Site, Position Yes -Correct Procedure Yes -Procedure Performed Yes -Type of Procedure Debridement -Clinical Debridement Subcutaneous -Tissue Removed Subcutaneous -Post Debridement (cm) - Length 3.4 -Post Debridement (cm) - Width 2.8 -Post Debridement (cm) - Depth 1.7 -Total Square (Post) (cm) 9.52 -Area of Debridement (cm) - Length 3.4 -Area of Debridement (cm) - Width 2.8 -Total Square (Area) (cm) 9.52 -Tunneling No -Undermining/Tunneling Yes -Undermining/Tunneling Starts (O'clock 1 ) -Undermining/Tunneling Ends (O'clock) 2 -Maximum Distance (cm) 2.3 -Circular Undermining No -Wound/Ulcer Outcome Not Healed -Ulcer Cleansing Rinsed/ Irrigated with Saline -Foul Odor after Cleansing No -Bioengineered Tissue No -Bleeding Controlled with Pressure -Treatment Response Procedure Tolerated Well -Offloading -Type of Offloading -Other Type of Offloading -Assistive Device(s) Wheelchair -Pressure Reduction Specialty bed -Debridement - Subq, 1st 20sq cm Yes Pain Scale: 0-10 Numeric Is Patient Pain Free? Yes - Nurse 3 - General Ulcer D/C NN Start: 01/30/22 11:10 Freq: Status: Active Protocol: Activity Type Activity Date Activity User E-Sign Co-Sign Detail Recorded Client Recorded Date Recorded By Document 01/30/22 12:25 DL [id number] 01/30/22 12:37 DL Document 02/06/22 12:19 RB [id number] 02/06/22 12:20 RB Document 02/13/22 12:25 RB [id number] 02/13/22 12:26 RB Document 02/20/22 12:38 AK [id number] 02/20/22 12:39 AK 01/30/22 02/06/22 02/13/22 12:25 12:19 12:25 Wound Care Nurse 3 6. R posterior labia -Ulcer Cleansing Soap and Water -Foul Odor after Cleansing No -Negative Pressure Wound Therapy -Primary Dressing Applied Mepilex Border Aquacel Extra, Aquacel Extra, Mepilex Border Mepilex Border -Primary Dressing Covered/Secured with Dry Gauze, Secured with Tape -Other Covering aquacel Ex -Aquacel Extra 1 1 1 -Melgisorb AG -Mepilex Border 1 1 1 Treatment Response Procedure Procedure Procedure Tolerated Well Tolerated Well Tolerated Well Pain Scale: 0-10 Numeric Is Patient Pain Free? Yes Yes Yes WC - Visit Discharge Discharge Condition Stable Stable Stable Ambulatory Status Wheelchair Wheelchair Wheelchair Transportation Private Auto Private Auto Private Auto Accompanied by Medication Reconcilliation completed & No No provided to patient/care provider Clinical Summary of Care Provided Yes Yes Notes: [facility] Facility Type Home Health Orders Sent Yes 02/20/22 12:38 Wound Care Nurse 3 6. R posterior labia -Ulcer Cleansing Rinsed/ Irrigated with Saline -Foul Odor after Cleansing No -Negative Pressure Wound Therapy N/A -Primary Dressing Applied Aquacel Extra, Mepilex Border -Primary Dressing Covered/Secured with -Other Covering -Aquacel Extra 1 -Melgisorb AG 1 -Mepilex Border 1 Treatment Response Pain Scale: 0-10 Numeric Is Patient Pain Free? No WC - Visit Discharge Discharge Condition Stable Ambulatory Status Wheelchair Transportation Private Auto Accompanied by Medication Reconcilliation completed & Yes provided to patient/care provider Clinical Summary of Care Provided Yes Notes: Facility Type Orders Sent Assessment/Plan Assessment/Plan (1) Bed confinement status: CODE(S): Z74.01 - Bed confinement status (2) Complete paraplegia: CODE(S): G82.21 - Paraplegia, complete (3) Pressure ulcer of right buttock, stage 3: CODE(S): L89.313 - Pressure ulcer of right buttock, stage 3 (4) Debility: CODE(S): R53.81 - Other malaise (5) Multiple sclerosis: CODE(S): G35 - Multiple sclerosis (6) Psoriasis: CODE(S): L40.9 - Psoriasis, unspecified PLAN: Zoey's ulcer was evaluated and posterior labia ulcer debrided today at the wound healing center. Ulcer of right buttock/gluteal fold is healed. Donated tissue product applied today per pharmacy delivery driver guidelines, covered with adaptic touch after rehydration with hydrogel and secured with steri-strips. Wound vac has been discontinued as it has not been significantly helpful in improving the size of her wound. Ulcer will be dressed with secondary dressings over the adaptic touch of Aquacel extra packed into the ulcer cavity and covered with gauze and ABD. She will continue ciprofloxacin but decreased to once daily. Gabapentin continued. Due to the poor progression of her ulcer, she would benefit from application of a skin substitute such as Epifix in order to heal her ulcer and hopefully decrease size with future need for surgical treatment and closure with a skin flap or graft. She was evaluated by Dr. Dougherty on 02/13/22 and he discussed surgical plan for surgical debridement with bone biopsy and if the bone biopsy is negative for infection then he would proceed with advancement of muscle flap to close the ulcer. Labs reveal adequate nutrition and otherwise were not significantly abnormal. Encouraged increased protein intake to support nutrition and optimize healing. Encouraged offloading of her right buttock/labia as much as possible in order to heal the ulcer. Discussed benefit of alternating pressure mattress as she is spending 98% of the day in bed in order to avoid pressure to the ulcer and promote wound healing. Alternating pressure mattress is medically necessary given that she is unable to adjust herself and it is becoming more difficult for her to continually move her and offload her to prevent ulcers and heal her current ulcer and this has been received and she is using this daily with improvement in her ulcer. She and her were advised to call with any concerns or increased drainage, erythema or odor. She will return in 1 week for wound care.
== END 2022-02-26 23:59 | disposition home or self-care (01) ==
LOC: WC 11:00
PROVIDERS: PCP Family Medicine; Visit Provider Family Medicine
DX: G35 Multiple sclerosis (principal); L89.313 Pressure ulcer of right buttock, stage 3; G82.21 Paraplegia, complete; R53.81 Other malaise; L40.9 Psoriasis, unspecified; Z74.01 Bed confinement status
CPT/HCPCS: 11042

== ENCOUNTER 2022-03-13 11:00 | Outpatient (RCR) | payer MEDICARE, SELFPAY ==
[2022-02-27 00:23] VITALS: BP 102/46; PULSE 87; RESP 18; TEMP 37.1; BMI 62.1
[2022-02-27 11:12] VITALS: BP 121/81; PULSE 87; RESP 20; TEMP 36.4; BMI 62.1
--- NOTE | 2022-02-27 14:30 | PCM.WC.PN ---
History of Present Illness Date of Service: 02/27/22 Chief Complaint: Right posterior labial pressure sore, Stage III History of Wound: Zoey is a 66 yo female that is bed bound/wheelchair bound from complications of MS that presents to the wound healing center today for evaluation and treatment of a pressure ulcer of her right posterior labia that has been present since January 2021. She had been doing well but had a pressure ulcer of her right posterior labia develop in January 2021 after an abrasion from transferring after a shower. Her began applying Santyl and Aquacel Ag for several weeks and then Aquacel Ag alone for moderate drainage to the wound at that time and it was nearly healed until several weeks ago she was at a bridal shower and was out of bed for a longer period of time and the following day there was significant bruising to the area and it began to become larger and drain more. For the last 2 weeks he had returned to applying Santyl and Aquacel Extra to the wound but was not noticing significant improvement and called to be seen at the wound healing center. Her helps with her care and he reports that she has significant vaginal drainage for the last several months since she has been being treated with Estradiol for vaginal itching. She uses a tablet vaginally 3 times/week and her notes that there is copious clear-king vaginal discharge. She has a suprapubic catheter in place so it is not likely that it is urine that is leaking. He finds it very difficult to keep the wound dry due to this drainage. She has an upcoming appointment with her calender worker helper on 07/16/2021 for recheck. She currently is not taking any antibiotics and she has not undergone any wound cultures of this ulcer. She denies fever, chills, nausea, vomiting or other systemic signs of infection. There is moderate to heavy drainage from the ulcer and they have been using Mepilix with border and Aquacel Ag and Santyl for the last 2 weeks. 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 Subjective Subjective Zoey's ulcer continues to be stable. She no longer has necrotic tissue or significant slough at the base of the wound. Drainage is still heavy at times but decreased. She has had improvement in vaginal discharge since discontinuing the use of estradiol. She continues on ciprofloxacin. She has decreased cipro to once daily. Objective Data Objective Data Vital Signs: Vital Signs Temp Pulse Resp BP 97.5 F L 87 20 H 121/81 H 02/27/22 11:12 02/27/22 11:12 02/27/22 11:12 02/27/22 11:12 Weight: 180 kg Body Mass Index (BMI) 62.1 Physical Exam Const alert, oriented x3 and no apparent distress General Appearance: cooperative and comfortable HEENT normocephalic and head/scalp atraumatic Mouth: oral and palatal mucosa normal Lymph Lymphatic: lymphedema Resp normal respiratory effort Effort and Inspection: able to speak in complete sentences Cardio regular rate and regular rhythm Skin Wounds: wounds noted Wound Narrative: as in clinical panel Psych mental status grossly normal, thought process normal, cooperative, affect normal and speech normal Debridement Note Debridement Note Wound debrided: right posterior labia Laterality: Right Wound Grade/Stage: Stage IV Type of Debridement: Excisional debridement Anesthesia Used: 4% Lidocaine Solution and 5% Lidocaine Gel Depth: Down to and including healthy tissue, in the subcutaneous layer and to muscle Percentage of wound debrided: 100 Instrument Used: 5mm curette Tissue Removed: Yellow slough, devitalized tissue Severity: Fat Layer Exposed Amount of bleeding with debridement: Mild Bleeding Controlled with: Compression and gauze Patient tolerated procedure: Patient tolerated procedure well Post-Debridement Measurements and Additional Note: Post-Debridement Measurements/Treatment - Nurse 1 - General Ulcer Assessment Start: 02/27/22 11:12 Freq: Status: Active Protocol: LINK Activity Type Activity Date Activity User E-Sign Co-Sign Detail Recorded Client Recorded Date Recorded By Document 02/27/22 11:12 DL [id number] 02/27/22 11:14 DL 02/27/22 11:12 - Today's Visit Information Type of service Follow-up Visit (Physician/ELECTRICIAN TECHNICIAN ) Arrival Mode Wheelchair Transfer Assistance Doug Lift Height and Weight Body Mass Index (BMI) 62.1 BMI Classification Obese Vital Signs Temperature (97.8 F-99.1 F) 97.5 F L Temperature Source Temporal Pulse Rate (60-100) 87 Pulse Location Monitor Respiratory Rate (12-18) 20 H Respiratory rate source Observation Blood Pressure (90/60-120/80) 121/81 H Blood Pressure Mean (mm Hg) 94 Source Monitor History Since Last Visit- (Skip if this is Patient's initial visit) Have you changed medications since your No last visit? Any new allergies or adverse reactions No Had a fall/change in ADL's that may No increase risk of falls Signs or symptoms of abuse and/or No neglect since last visit Have you been in the hospital since your No last visit? Has dressing in place as prescribed Yes Has compression in place as prescribed N/A Has offloadiing in place as prescribed Yes Experienced any changes in pain level or No management Pain Scale: 0-10 Numeric Is Patient Pain Free? Yes WC - Nurse 1 - General Ulcer Measurement Start: 02/27/22 11:12 Freq: Status: Active Protocol: Activity Type Activity Date Activity User E-Sign Co-Sign Detail Recorded Client Recorded Date Recorded By Document 02/27/22 11:12 DL [id number] 02/27/22 11:14 DL 02/27/22 11:12 Wound Center Nurse 1 6. R posterior labia -Current Size (cm) - Length 4 -Current Size (cm) - Width 2.5 -Current Size (cm) - Depth 2.4 -Total Square Cm 10.0 -Photo Taken No -Exudate Amt Medium -Exudate Type Serosanguineous -Wound Margin Distinct, Outline Attached -Granulation Amt Large (67-100%) -Granulation Quality Red -Necrosis Amt Small (1-33%) -Necrotic Tissue Type Adherent Slough -Structure Exposed N/A -Texture (Janene-wound Skin Appearance) Scarring -Moisture (Janene-wound Skin Appearance) No Abnormality -Color (Janene-wound Skin Appearance) No Abnormality -Temperature (Janene-wound Skin No Abnormality Appearance) (Pt Warm) -Tenderness on Palpation (Janene-wound No Skin Appearance) -Ulcer Cleansing Soap and Water -Foul Odor after Cleansing No -Anesthetic Used 4% Lidocaine Solution WC - Nurse 2 - General Ulcer CM Notes Start: 02/27/22 11:12 Freq: Status: Active Protocol: Activity Type Activity Date Activity User E-Sign Co-Sign Detail Recorded Client Recorded Date Recorded By Document 02/27/22 11:48 MW [id number] 02/27/22 12:19 MW 02/27/22 11:48 Wound Center Nurse 2 -Time 11:49 -Correct Patient Yes -Correct Side, Site, Position Yes -Correct Procedure Yes -Procedure Performed Yes -Type of Procedure Debridement -Clinical Debridement Subcutaneous -Tissue Removed Subcutaneous -Post Debridement (cm) - Length 3.5 -Post Debridement (cm) - Width 2.4 -Post Debridement (cm) - Depth 1.7 -Total Square (Post) (cm) 8.40 -Area of Debridement (cm) - Length 3.5 -Area of Debridement (cm) - Width 2.4 -Total Square (Area) (cm) 8.40 -Tunneling No -Undermining/Tunneling Yes -Undermining/Tunneling Starts (O'clock 1 ) -Undermining/Tunneling Ends (O'clock) 2 -Maximum Distance (cm) 2.6 -Circular Undermining No -Wound/Ulcer Outcome Not Healed -Ulcer Cleansing Rinsed/ Irrigated with Saline -Foul Odor after Cleansing No -Bioengineered Tissue No -Bleeding Controlled with Pressure -Treatment Response Procedure Tolerated Well -Offloading No -Debridement - Subq, 1st 20sq cm Yes Pain Scale: 0-10 Numeric Is Patient Pain Free? Yes - Nurse 3 - General Ulcer D/C NN Start: 02/27/22 11:12 Freq: Status: Active Protocol: Activity Type Activity Date Activity User E-Sign Co-Sign Detail Recorded Client Recorded Date Recorded By Document 02/27/22 12:27 MW [id number] 02/27/22 12:29 MW 02/27/22 12:27 Wound Care Nurse 3 6. R posterior labia -Foul Odor after Cleansing No -Primary Dressing Applied Aquacel Extra, Mepilex Border -Aquacel Extra 1 -Mepilex Border 1 Treatment Response Procedure Tolerated Well Pain Scale: 0-10 Numeric Is Patient Pain Free? Yes - Visit Discharge Discharge Condition Stable Ambulatory Status Wheelchair Transportation Private Auto Facility Type Home Health Orders Sent Yes Assessment/Plan Assessment/Plan (1) Complete paraplegia: CODE(S): G82.21 - Paraplegia, complete (2) Bed confinement status: CODE(S): Z74.01 - Bed confinement status (3) Right ischial pressure sore, stage 4: CODE(S): L89.314 - Pressure ulcer of right buttock, stage 4 (4) Multiple sclerosis: CODE(S): G35 - Multiple sclerosis (5) Psoriasis: CODE(S): L40.9 - Psoriasis, unspecified (6) Bilateral lower extremity edema: CODE(S): R60.0 - Localized edema (7) Pressure injury of buttock, stage 4: CODE(S): L89.304 - Pressure ulcer of unspecified buttock, stage 4 QUALIFIERS: Laterality: right Qualified Code(s): L89.314 - Pressure ulcer of right buttock, stage 4 PLAN: Zoey's ulcer was evaluated and posterior labia ulcer debrided today at the wound healing center. Ulcer of right buttock/gluteal fold is healed. Donated tissue product applied today per smokehouse worker guidelines, covered with adaptic touch after rehydration with hydrogel and secured with steri-strips. Wound vac has been discontinued as it has not been significantly helpful in improving the size of her wound. Ulcer will be dressed with secondary dressings over the adaptic touch of Aquacel extra packed into the ulcer cavity and covered with gauze and ABD. She will continue ciprofloxacin but decreased to once daily. Gabapentin continued. Due to the poor progression of her ulcer, she would benefit from application of a skin substitute such as Epifix in order to heal her ulcer and hopefully decrease size with future need for surgical treatment and closure with a skin flap or graft. She was evaluated by Dr. Dougherty on 02/13/22 and he discussed surgical plan for surgical debridement with bone biopsy and if the bone biopsy is negative for infection then he would proceed with advancement of muscle flap to close the ulcer but unfortunately he is on medical leave and this was discussed with her and she is going to consider referral to Dr. Parker at [facility]. Labs reveal adequate nutrition and otherwise were not significantly abnormal. Encouraged increased protein intake to support nutrition and optimize healing. Encouraged offloading of her right buttock/labia as much as possible in order to heal the ulcer. Discussed benefit of alternating pressure mattress as she is spending 98% of the day in bed in order to avoid pressure to the ulcer and promote wound healing. Alternating pressure mattress is medically necessary given that she is unable to adjust herself and it is becoming more difficult for her to continually move her and offload her to prevent ulcers and heal her current ulcer and this has been received and she is using this daily with improvement in her ulcer. She and her were advised to call with any concerns or increased drainage, erythema or odor. She will return in 1 week for wound care.
[2022-03-06 11:17] VITALS: RESP 18; TEMP 36.1; BMI 62.1
--- NOTE | 2022-03-06 14:11 | PN.PCM_ITS ---
History of Present Illness Date of Service: 03/06/22 Chief Complaint: Right posterior labial pressure sore, Stage IV History of Wound: Zoey is a 66 yo female that is bed bound/wheelchair bound from complications of MS that presents to the wound healing center today for evaluation and treatment of a pressure ulcer of her right posterior labia that has been present since January 2021. She had been doing well but had a pressure ulcer of her right posterior labia develop in January 2021 after an abrasion from transferring after a shower. Her began applying Santyl and Aquacel Ag for several weeks and then Aquacel Ag alone for moderate drainage to the wound at that time and it was nearly healed until several weeks ago she was at a bridal shower and was out of bed for a longer period of time and the following day there was significant bruising to the area and it began to become larger and drain more. For the last 2 weeks he had returned to applying Santyl and Aquacel Extra to the wound but was not noticing significant improvement and called to be seen at the wound healing center. Her helps with her care and he reports that she has significant vaginal drainage for the last several months since she has been being treated with Estradiol for vaginal itching. She uses a tablet vaginally 3 times/week and her notes that there is copious clear-king vaginal discharge. She has a suprapubic catheter in place so it is not likely that it is urine that is leaking. He finds it very difficult to keep the wound dry due to this drainage. She has an upcoming appointment with her rigger supervisor on 07/16/2021 for recheck. She currently is not taking any antibiotics and she has not undergone any wound cultures of this ulcer. She denies fever, chills, nausea, vomiting or other systemic signs of infection. There is moderate to heavy drainage from the ulcer and they have been using Mepilix with border and Aquacel Ag and Santyl for the last 2 weeks. 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 Subjective Subjective Zoey's ulcer continues to be stable. She no longer has necrotic tissue or significant slough at the base of the wound. Drainage is still heavy at times but decreased. She has had improvement in vaginal discharge since discontinuing the use of estradiol. She continues on ciprofloxacin. She has decreased cipro to once daily. Objective Data Objective Data Vital Signs: Vital Signs Temp Pulse Resp BP 97 F L 87 18 121/81 H 03/06/22 11:17 02/27/22 11:12 03/06/22 11:17 02/27/22 11:12 Weight: 180 kg Body Mass Index (BMI) 62.1 Physical Exam Const alert, oriented x3 and no apparent distress General Appearance: cooperative and comfortable HEENT normocephalic and head/scalp atraumatic Lymph Lymphatic: lymphedema Resp normal respiratory effort Effort and Inspection: able to speak in complete sentences Cardio regular rate and regular rhythm Skin Wounds: wounds noted Wound Narrative: as in clinical panel Psych mental status grossly normal, thought process normal, cooperative, affect normal and speech normal Debridement Note Debridement Note Wound debrided: right posterior labia Laterality: Right Wound Grade/Stage: Stage IV Type of Debridement: Excisional debridement Anesthesia Used: 4% Lidocaine Solution Depth: Down to and including healthy tissue, in the subcutaneous layer and to muscle Percentage of wound debrided: 100 Instrument Used: - (misonix ultrasonic debridement) Tissue Removed: Yellow slough, devitalized tissue Severity: Fat Layer Exposed Amount of bleeding with debridement: Mild Bleeding Controlled with: Compression and gauze Patient tolerated procedure: Patient tolerated procedure well Post-Debridement Measurements and Additional Note: Post-Debridement Measurements/Treatment - Nurse 1 - General Ulcer Assessment Start: 02/27/22 11:12 Freq: Status: Active Protocol: LINK Activity Type Activity Date Activity User E-Sign Co-Sign Detail Recorded Client Recorded Date Recorded By Document 02/27/22 11:12 DL [id number] 02/27/22 11:14 DL Document 03/06/22 11:17 RB [id number] 03/06/22 11:33 RB 02/27/22 03/06/22 11:12 11:17 - Today's Visit Information Type of service Follow-up Visit Follow-up Visit (Physician/PLATE CONDITIONER (Physician/PLATE CONDITIONER ) ) Arrival Mode Wheelchair Wheelchair Transfer Assistance Doug Lift Doug Lift Patient Identification Verified (Name & Yes ) Patient Requires Transmission-Based No Precautions Height and Weight Body Mass Index (BMI) 62.1 62.1 BMI Classification Obese Obese Vital Signs Temperature (97.8 F-99.1 F) 97.5 F L 97 F L Temperature Source Temporal Temporal Pulse Rate (60-100) 87 Pulse Location Monitor Monitor Respiratory Rate (12-18) 20 H 18 Respiratory rate source Observation Observation Blood Pressure (90/60-120/80) 121/81 H Blood Pressure Mean (mm Hg) 94 Source Monitor Monitor Position Sitting Blood Pressure Location Right Arm History Since Last Visit- (Skip if this is Patient's initial visit) Have you changed medications since your No No last visit? Any new allergies or adverse reactions No No Had a fall/change in ADL's that may No No increase risk of falls Signs or symptoms of abuse and/or No No neglect since last visit Have you been in the hospital since your No No last visit? Has dressing in place as prescribed Yes Yes Has compression in place as prescribed N/A No Has offloadiing in place as prescribed Yes Yes Experienced any changes in pain level or No No management Left Footwear Regular Shoe Right Footwear Regular Shoe Pain Scale: 0-10 Numeric Is Patient Pain Free? Yes Yes WC - Nurse 1 - General Ulcer Measurement Start: 02/27/22 11:12 Freq: Status: Active Protocol: Activity Type Activity Date Activity User E-Sign Co-Sign Detail Recorded Client Recorded Date Recorded By Document 02/27/22 11:12 DL [id number] 02/27/22 11:14 DL Document 03/06/22 11:17 RB [id number] 03/06/22 11:33 RB 02/27/22 03/06/22 11:12 11:17 Wound Center Nurse 1 6. R posterior labia -Combined with other wound No -Current Size (cm) - Length 4 3.3 -Current Size (cm) - Width 2.5 3.8 -Current Size (cm) - Depth 2.4 2.2 -Total Square Cm 10.0 12.54 -Photo Taken No -Undermining/Tunneling Yes -Undermining/Tunneling Starts (O'clock 12 ) -Undermining/Tunneling Ends (O'clock) 2 -Maximum Distance (cm) 3.8 -Exudate Amt Medium Medium -Exudate Type Serosanguineous Serosanguineous -Wound Margin Distinct, Thickened & Outline Rolled Under Attached -Granulation Amt Large (67-100%) Medium (34-66%) -Granulation Quality Red Pale,Eighty Four -Necrosis Amt Small (1-33%) Medium (34-66%) -Necrotic Tissue Type Adherent Slough Adherent Slough -Structure Exposed N/A -Texture (Janene-wound Skin Appearance) Scarring Assessed -Moisture (Jannee-wound Skin Appearance) No Abnormality Assessed -Color (Janene-wound Skin Appearance) No Abnormality Assessed -Temperature (Janene-wound Skin No Abnormality No Abnormality Appearance) (Pt Warm) (Pt Warm) -Tenderness on Palpation (Janene-wound No No Skin Appearance) -Ulcer Cleansing Soap and Water Soap and Water -Foul Odor after Cleansing No No -Anesthetic Used 4% Lidocaine 4% Lidocaine Solution Solution Lower Limb Edema Present NA WC - Nurse 2 - General Ulcer CM Notes Start: 02/27/22 11:12 Freq: Status: Active Protocol: Activity Type Activity Date Activity User E-Sign Co-Sign Detail Recorded Client Recorded Date Recorded By Document 02/27/22 11:48 MW [id number] 02/27/22 12:19 MW Document 03/06/22 11:52 MW [id number] 03/06/22 12:22 MW 02/27/22 03/06/22 11:48 11:52 Wound Center Nurse 2 6. R posterior labia -Time 11:49 11:53 -Correct Patient Yes Yes -Correct Side, Site, Position Yes Yes -Correct Procedure Yes Yes -Procedure Performed Yes Yes -Type of Procedure Debridement Incision & Drainage -Clinical Debridement Subcutaneous Subcutaneous -Tissue Removed Subcutaneous Subcutaneous -Post Debridement (cm) - Length 3.5 3.3 -Post Debridement (cm) - Width 2.4 2.5 -Post Debridement (cm) - Depth 1.7 1.5 -Total Square (Post) (cm) 8.40 8.25 -Area of Debridement (cm) - Length 3.5 3.3 -Area of Debridement (cm) - Width 2.4 2.5 -Total Square (Area) (cm) 8.40 8.25 -Tunneling No No -Undermining/Tunneling Yes Yes -Undermining/Tunneling Starts (O'clock 1 1 ) -Undermining/Tunneling Ends (O'clock) 2 2 -Maximum Distance (cm) 2.6 2.4 -Circular Undermining No No -Wound/Ulcer Outcome Not Healed Not Healed -Ulcer Cleansing Rinsed/ Rinsed/ Irrigated with Irrigated with Saline Saline -Foul Odor after Cleansing No No -Bioengineered Tissue No No -Bleeding Controlled with Pressure Pressure -Treatment Response Procedure Procedure Tolerated Well Tolerated Well -Offloading No No -Debridement - Subq, 1st 20sq cm Yes Yes Pain Scale: 0-10 Numeric Is Patient Pain Free? Yes Yes - Nurse 3 - General Ulcer D/C NN Start: 02/27/22 11:12 Freq: Status: Active Protocol: Activity Type Activity Date Activity User E-Sign Co-Sign Detail Recorded Client Recorded Date Recorded By Document 02/27/22 12:27 MW [id number] 02/27/22 12:29 MW Document 03/06/22 12:53 RB [id number] 03/06/22 12:54 RB 02/27/22 03/06/22 12:27 12:53 Wound Care Nurse 3 6. R posterior labia -Foul Odor after Cleansing No -Primary Dressing Applied Aquacel Extra, Aquacel Extra, Mepilex Border Mepilex Border -Aquacel Extra 1 1 -Mepilex Border 1 1 Treatment Response Procedure Procedure Tolerated Well Tolerated Well Pain Scale: 0-10 Numeric Is Patient Pain Free? Yes Yes - Visit Discharge Discharge Condition Stable Stable Ambulatory Status Wheelchair Wheelchair Transportation Private Auto Private Auto Medication Reconcilliation completed & No provided to patient/care provider Clinical Summary of Care Provided Yes Notes: [facility] Type Home Health Orders Sent Yes Assessment/Plan Assessment/Plan (1) Complete paraplegia: CODE(S): G82.21 - Paraplegia, complete (2) Bed confinement status: CODE(S): Z74.01 - Bed confinement status (3) Right ischial pressure sore, stage 4: CODE(S): L89.314 - Pressure ulcer of right buttock, stage 4 (4) Multiple sclerosis: CODE(S): G35 - Multiple sclerosis (5) Psoriasis: CODE(S): L40.9 - Psoriasis, unspecified (6) Bilateral lower extremity edema: CODE(S): R60.0 - Localized edema (7) Pressure injury of buttock, stage 4: CODE(S): L89.304 - Pressure ulcer of unspecified buttock, stage 4 QUALIFIERS: Laterality: right Qualified Code(s): L89.314 - Pressure ulcer of right buttock, stage 4 PLAN: Zoey's ulcer was evaluated and posterior labia ulcer debrided today at the wound healing center. Ulcer of right buttock/gluteal fold is healed. Donated tissue product applied today per wireworker supervisor guidelines, covered with adaptic touch after rehydration with hydrogel and secured with steri-strips. Wound vac has been discontinued as it has not been significantly helpful in improving the size of her wound. Ulcer will be dressed with secondary dressings over the adaptic touch of Aquacel extra packed into the ulcer cavity and covered with gauze and ABD. She will continue ciprofloxacin but decreased to once daily. Gabapentin continued. Due to the poor progression of her ulcer, she received application of Epifix. There has been decrease in size but she will likely need surgical treatment and closure with a skin flap or graft. She was evaluated by Dr. Dougherty on 02/13/22 and he discussed surgical plan for surgical debridement with bone biopsy and if the bone biopsy is negative for infection then he would proceed with advancement of muscle flap to close the ulcer but unfortunately he is on medical leave and this was discussed with her and she is going to proceed with referral to Dr. Parker at [facility]. Labs reveal adequate nutrition and otherwise were not significantly abnormal. Encouraged increased protein intake to support nutrition and optimize healing. Encouraged offloading of her right buttock/labia as much as possible in order to heal the ulcer. Discussed benefit of alternating pressure mattress as she is spending 98% of the day in bed in order to avoid pressure to the ulcer and promote wound healing. Alternating pressure mattress is medically necessary given that she is unable to adjust herself and it is becoming more difficult for her to continually move her and offload her to prevent ulcers and heal her current ulcer and this has been received and she is using this daily with improvement in her ulcer. She and her were advised to call with any concerns or increased drainage, erythema or odor. She will return in 1 week for wound care.
[2022-03-13 10:39] VITALS: BP 128/81; PULSE 81; RESP 18; TEMP 36.4; BMI 62.1
--- NOTE | 2022-03-13 13:21 | PCM.WC.PN ---
History of Present Illness Date of Service: 03/13/22 Chief Complaint: Right posterior labial pressure sore, Stage IV History of Wound: Zoey is a 66 yo female that is bed bound/wheelchair bound from complications of MS that presents to the wound healing center today for evaluation and treatment of a pressure ulcer of her right posterior labia that has been present since January 2021. She had been doing well but had a pressure ulcer of her right posterior labia develop in January 2021 after an abrasion from transferring after a shower. Her began applying Santyl and Aquacel Ag for several weeks and then Aquacel Ag alone for moderate drainage to the wound at that time and it was nearly healed until several weeks ago she was at a bridal shower and was out of bed for a longer period of time and the following day there was significant bruising to the area and it began to become larger and drain more. For the last 2 weeks he had returned to applying Santyl and Aquacel Extra to the wound but was not noticing significant improvement and called to be seen at the wound healing center. Her helps with her care and he reports that she has significant vaginal drainage for the last several months since she has been being treated with Estradiol for vaginal itching. She uses a tablet vaginally 3 times/week and her notes that there is copious clear-king vaginal discharge. She has a suprapubic catheter in place so it is not likely that it is urine that is leaking. He finds it very difficult to keep the wound dry due to this drainage. She has an upcoming appointment with her community advocate on 07/16/2021 for recheck. She currently is not taking any antibiotics and she has not undergone any wound cultures of this ulcer. She denies fever, chills, nausea, vomiting or other systemic signs of infection. There is moderate to heavy drainage from the ulcer and they have been using Mepilix with border and Aquacel Ag and Santyl for the last 2 weeks. 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 Subjective Subjective Zoey's ulcer continues to be stable. She no longer has necrotic tissue or significant slough at the base of the wound. Drainage is still heavy at times but decreased. She has had improvement in vaginal discharge since discontinuing the use of estradiol. She continues on ciprofloxacin. She has decreased cipro to once daily. Objective Data Objective Data Vital Signs: Vital Signs Temp Pulse Resp BP 97.5 F L 81 18 128/81 H 03/13/22 10:39 03/13/22 10:39 03/13/22 10:39 03/13/22 10:39 Weight: 180 kg Body Mass Index (BMI) 62.1 Physical Exam Const alert, oriented x3 and no apparent distress General Appearance: cooperative and comfortable HEENT normocephalic and head/scalp atraumatic Lymph Lymphatic: lymphedema Resp normal respiratory effort Effort and Inspection: able to speak in complete sentences Cardio regular rate and regular rhythm Skin Wounds: wounds noted Wound Narrative: as in clinical panel Psych mental status grossly normal, thought process normal, cooperative, affect normal and speech normal Debridement Note Debridement Note Wound debrided: right posterior labia Laterality: Right Wound Grade/Stage: Stage IV Type of Debridement: Excisional debridement Anesthesia Used: 4% Lidocaine Solution Depth: Down to and including healthy tissue and in the subcutaneous layer Percentage of wound debrided: 100 Instrument Used: 5mm curette Tissue Removed: Yellow slough, devitalized tissue Severity: Fat Layer Exposed Amount of bleeding with debridement: Mild Bleeding Controlled with: Compression and gauze Patient tolerated procedure: Patient tolerated procedure well Post-Debridement Measurements and Additional Note: Post-Debridement Measurements/Treatment LOUISE - Nurse 1 - General Ulcer Assessment Start: 02/27/22 11:12 Freq: Status: Active Protocol: LINK Activity Type Activity Date Activity User E-Sign Co-Sign Detail Recorded Client Recorded Date Recorded By Document 02/27/22 11:12 DL [id number] 02/27/22 11:14 DL Document 03/06/22 11:17 RB [id number] 03/06/22 11:33 RB Document 03/13/22 10:39 DL [id number] 03/13/22 10:52 DL 02/27/22 03/06/22 03/13/22 11:12 11:17 10:39 LOUISE - Today's Visit Information Type of service Follow-up Visit Follow-up Visit Follow-up Visit (Physician/CAD DESIGN ENGINEER (Physician/CAD DESIGN ENGINEER (Physician/CAD DESIGN ENGINEER ) ) ) Arrival Mode Wheelchair Wheelchair Wheelchair Transfer Assistance Doug Lift Doug Lift Doug Lift Patient Identification Verified (Name & Yes Yes ) Patient Requires Transmission-Based No No Precautions Height and Weight Body Mass Index (BMI) 62.1 62.1 62.1 BMI Classification Obese Obese Obese Vital Signs Temperature (97.8 F-99.1 F) 97.5 F L 97 F L 97.5 F L Temperature Source Temporal Temporal Temporal Pulse Rate (60-100) 87 81 Pulse Location Monitor Monitor Monitor Respiratory Rate (12-18) 20 H 18 18 Respiratory rate source Observation Observation Observation Blood Pressure (90/60-120/80) 121/81 H 128/81 H Blood Pressure Mean (mm Hg) 94 96 Source Monitor Monitor Monitor Position Sitting Blood Pressure Location Right Arm History Since Last Visit- (Skip if this is Patient's initial visit) Have you changed medications since your No No No last visit? Any new allergies or adverse reactions No No No Had a fall/change in ADL's that may No No No increase risk of falls Signs or symptoms of abuse and/or No No No neglect since last visit Have you been in the hospital since your No No No last visit? Has dressing in place as prescribed Yes Yes Yes Has compression in place as prescribed N/A No N/A Has offloadiing in place as prescribed Yes Yes Yes Experienced any changes in pain level or No No No management Left Footwear Regular Shoe Right Footwear Regular Shoe Pain Scale: 0-10 Numeric Is Patient Pain Free? Yes Yes Yes WC - Nurse 1 - General Ulcer Measurement Start: 02/27/22 11:12 Freq: Status: Active Protocol: Activity Type Activity Date Activity User E-Sign Co-Sign Detail Recorded Client Recorded Date Recorded By Document 02/27/22 11:12 DL [id number] 02/27/22 11:14 DL Document 03/06/22 11:17 RB [id number] 03/06/22 11:33 RB Document 03/13/22 10:39 DL [id number] 03/13/22 10:52 DL 02/27/22 03/06/22 03/13/22 11:12 11:17 10:39 Wound Center Nurse 1 6. R posterior labia -Combined with other wound No -Current Size (cm) - Length 4 3.3 3.8 -Current Size (cm) - Width 2.5 3.8 3.8 -Current Size (cm) - Depth 2.4 2.2 1.5 -Total Square Cm 10.0 12.54 14.44 -Photo Taken No No -Undermining/Tunneling Yes -Undermining/Tunneling Starts (O'clock 12 7 ) -Undermining/Tunneling Ends (O'clock) 2 3 -Maximum Distance (cm) 3.8 2.8 -Exudate Amt Medium Medium Medium -Exudate Type Serosanguineous Serosanguineous Serosanguineous -Wound Margin Distinct, Thickened & Distinct, Outline Rolled Under Outline Attached Attached -Granulation Amt Large (67-100%) Medium (34-66%) Large (67-100%) -Granulation Quality Red Pale,[place] Red -Necrosis Amt Small (1-33%) Medium (34-66%) Small (1-33%) -Necrotic Tissue Type Adherent Slough Adherent Slough Adherent Slough -Structure Exposed N/A N/A -Texture (Janene-wound Skin Appearance) Scarring Assessed Scarring -Moisture (Janene-wound Skin Appearance) No Abnormality Assessed No Abnormality -Color (Janene-wound Skin Appearance) No Abnormality Assessed No Abnormality -Temperature (Janene-wound Skin No Abnormality No Abnormality No Abnormality Appearance) (Pt Warm) (Pt Warm) (Pt Warm) -Tenderness on Palpation (Janene-wound No No No Skin Appearance) -Ulcer Cleansing Soap and Water Soap and Water Soap and Water -Foul Odor after Cleansing No No No -Anesthetic Used 4% Lidocaine 4% Lidocaine 4% Lidocaine Solution Solution Solution Lower Limb Edema Present NA WC - Nurse 2 - General Ulcer CM Notes Start: 02/27/22 11:12 Freq: Status: Active Protocol: Activity Type Activity Date Activity User E-Sign Co-Sign Detail Recorded Client Recorded Date Recorded By Document 02/27/22 11:48 MW [id number] 02/27/22 12:19 MW Document 03/06/22 11:52 MW [id number] 03/06/22 12:22 MW Document 03/13/22 11:13 MW [id number] 04/15/22 11:29 MW 02/27/22 03/06/22 03/13/22 11:48 11:52 11:13 Wound Center Nurse 2 6. R posterior labia -Time 11:49 11:53 11:15 -Correct Patient Yes Yes Yes -Correct Side, Site, Position Yes Yes Yes -Correct Procedure Yes Yes Yes -Procedure Performed Yes Yes Yes -Type of Procedure Debridement Incision & Debridement Drainage -Clinical Debridement Subcutaneous Subcutaneous Subcutaneous -Tissue Removed Subcutaneous Subcutaneous Subcutaneous -Post Debridement (cm) - Length 3.5 3.3 3.5 -Post Debridement (cm) - Width 2.4 2.5 2.8 -Post Debridement (cm) - Depth 1.7 1.5 1.2 -Total Square (Post) (cm) 8.40 8.25 9.80 -Area of Debridement (cm) - Length 3.5 3.3 3.5 -Area of Debridement (cm) - Width 2.4 2.5 2.8 -Total Square (Area) (cm) 8.40 8.25 9.80 -Tunneling No No No -Undermining/Tunneling Yes Yes Yes -Undermining/Tunneling Starts (O'clock 1 1 1 ) -Undermining/Tunneling Ends (O'clock) 2 2 2 -Maximum Distance (cm) 2.6 2.4 2.3 -Circular Undermining No No No -Wound/Ulcer Outcome Not Healed Not Healed Not Healed -Ulcer Cleansing Rinsed/ Rinsed/ Rinsed/ Irrigated with Irrigated with Irrigated with Saline Saline Saline -Foul Odor after Cleansing No No No -Bioengineered Tissue No No No -Bleeding Controlled with Pressure Pressure Pressure -Treatment Response Procedure Procedure Procedure Tolerated Well Tolerated Well Tolerated Well -Offloading No No No -Debridement - Subq, 1st 20sq cm Yes Yes Yes Pain Scale: 0-10 Numeric Is Patient Pain Free? Yes Yes Yes WC - Nurse 3 - General Ulcer D/C NN Start: 02/27/22 11:12 Freq: Status: Active Protocol: Activity Type Activity Date Activity User E-Sign Co-Sign Detail Recorded Client Recorded Date Recorded By Document 02/27/22 12:27 MW [id number] 02/27/22 12:29 MW Document 03/06/22 12:53 RB [id number] 03/06/22 12:54 RB Document 03/13/22 11:46 KR [id number] 03/13/22 11:47 KR 02/27/22 03/06/22 03/13/22 12:27 12:53 11:46 Wound Care Nurse 3 6. R posterior labia -Ulcer Cleansing Rinsed/ Irrigated with Saline -Foul Odor after Cleansing No -Primary Dressing Applied Aquacel Extra, Aquacel Extra, Aquacel Extra, Mepilex Border Mepilex Border Mepilex Border -Aquacel Extra 1 1 1 -Mepilex Border 1 1 1 Treatment Response Procedure Procedure Tolerated Well Tolerated Well Pain Scale: 0-10 Numeric Is Patient Pain Free? Yes Yes Yes WC - Visit Discharge Discharge Condition Stable Stable Stable Ambulatory Status Wheelchair Wheelchair Wheelchair Transportation Private Auto Private Auto Private Auto Accompanied by Medication Reconcilliation completed & No provided to patient/care provider Clinical Summary of Care Provided Yes Notes: [facility] Type Home Health Orders Sent Yes Assessment/Plan Assessment/Plan (1) Complete paraplegia: CODE(S): G82.21 - Paraplegia, complete (2) Bed confinement status: CODE(S): Z74.01 - Bed confinement status (3) Right ischial pressure sore, stage 4: CODE(S): L89.314 - Pressure ulcer of right buttock, stage 4 (4) Multiple sclerosis: CODE(S): G35 - Multiple sclerosis (5) Psoriasis: CODE(S): L40.9 - Psoriasis, unspecified (6) Bilateral lower extremity edema: CODE(S): R60.0 - Localized edema (7) Pressure injury of buttock, stage 4: CODE(S): L89.304 - Pressure ulcer of unspecified buttock, stage 4 QUALIFIERS: Laterality: right Qualified Code(s): L89.314 - Pressure ulcer of right buttock, stage 4 PLAN: Zoey's ulcer was evaluated and posterior labia ulcer debrided today at the wound healing center. Ulcer of right buttock/gluteal fold is healed. Donated tissue product applied today per casing in line feeder guidelines, covered with adaptic touch after rehydration with hydrogel and secured with steri-strips. Wound vac has been discontinued as it has not been significantly helpful in improving the size of her wound. Ulcer will be dressed with secondary dressings over the adaptic touch of Aquacel extra packed into the ulcer cavity and covered with gauze and ABD. She will continue ciprofloxacin but decreased to once daily. Gabapentin continued. Due to the poor progression of her ulcer, she received application of Epifix. There has been decrease in size but she will likely need surgical treatment and closure with a skin flap or graft. She was evaluated by Dr. Dougherty on 02/13/22 and he discussed surgical plan for surgical debridement with bone biopsy and if the bone biopsy is negative for infection then he would proceed with advancement of muscle flap to close the ulcer but unfortunately he is on medical leave and this was discussed with her and she is going to proceed with referral to Dr. Parker at [facility] on Wednesday. Labs reveal adequate nutrition and otherwise were not significantly abnormal. Encouraged increased protein intake to support nutrition and optimize healing. Encouraged offloading of her right buttock/labia as much as possible in order to heal the ulcer. Discussed benefit of alternating pressure mattress as she is spending 98% of the day in bed in order to avoid pressure to the ulcer and promote wound healing. Alternating pressure mattress is medically necessary given that she is unable to adjust herself and it is becoming more difficult for her to continually move her and offload her to prevent ulcers and heal her current ulcer and this has been received and she is using this daily with improvement in her ulcer. She and her were advised to call with any concerns or increased drainage, erythema or odor. She will return in 1 week for wound care.
== END 2022-03-25 15:43 | disposition home or self-care (01) ==
LOC: WC 11:00
PROVIDERS: PCP Family Medicine; Visit Provider Family Medicine
DX: L89.893 Pressure ulcer of other site, stage 3 (principal); G82.21 Paraplegia, complete; G35 Multiple sclerosis; L29.9 Pruritus, unspecified; R60.0 Localized edema; N89.8 Other specified noninflammatory disorders of vagina; L40.9 Psoriasis, unspecified; Z74.01 Bed confinement status
CPT/HCPCS: 11042

== ENCOUNTER 2023-12-18 14:50 | Emergency (ER) | payer OTHER, SELFPAY ==
[2023-12-18 14:52] VITALS: BP 146/86; PULSE 103; RESP 20; TEMP 36.8; O2SAT 100
--- NOTE | 2023-12-18 15:19 | CT_ITS ---
CT/Abdomen/Pelvis W IV Cont ONLY IMPRESSION: 1. Anterior colostomy is noted with no evidence of bowel dilatation, air-fluid levels or dilatation to suggest obstruction. Prominent stool throughout the colon is noted, correlate for underlying constipation. Additional senescent changes as above. 2. Suprapubic catheter in place with bladder contracted and mild superimposed cystitis not excluded in the appropriate clinical setting. Electronically Signed: Senthil Allen, at 16:35 EST ,
--- NOTE | 2023-12-18 15:20 | ED.VIS.GI ---
HPI HPI - GI History of Present Illness Chief Complaint: Abd Pain Informant: patient and spouse/S.O. Abdominal Pain/Flank Pain Onset: Weeks (1) Context: Gradual Onset Timing: Continuous Quality: Aching ( Discomfort ) Location: Diffuse Current Severity: Moderate Maximum Severity: Moderate Worsened by: Nothing Relieved by: Nothing Nausea/Vomiting/Emesis GI Symptom: Positive for Nausea; Negative for Vomiting Narrative Narrative: Patient presenting with abdominal discomfort and lack of output in her colostomy for about the past week. For the week prior to that, she had diarrhea. She took some Imodium and once it stopped, she has basically had no output except she is passing some flatus she states. Some nausea, no vomiting. No fevers or chills. Urinating okay. She is also had some unusual rectal discharge from her rectal blind pouch. That is unusual for her. It is not bleeding or foul-smelling or purulent. She states that is brown. No anal/rectal pain. 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 PFSH PFSH Home Medications ascorbic acid (vitamin C) 500 mg capsule 1 tab PO BID supplement 11/03/19 [History Last Taken 05/25/20] baclofen 20 mg tablet 1 - 2 tab PO Q8H PRN PRN muscle spasms 11/03/19 [History Last Taken 09/10/20] cholecalciferol (vitamin D3) 25 mcg (1,000 unit) tablet 1,000 unit PO DINNER supplement 11/03/19 [History Last Taken 05/25/20] cholestyramine (with sugar) 4 gram oral powder 1 packet PO DAILY cholesterol 11/03/19 [History Last Taken 05/26/20] cranberry extract 200 mg capsule 200 mg PO DINNER supplement 11/03/19 [History Last Taken 05/25/20] letrozole 2.5 mg tablet 1 tab PO DAILY hormones 11/03/19 [History Last Taken Unknown] oxybutynin chloride 5 mg tablet 2 tab PO BID urination 11/03/19 [History Last Taken 05/26/20] Pro Stat 5 ml PO DINNER wound healing 04/25/20 [History Last Taken 05/25/20] nitrofurantoin macrocrystal 50 mg capsule 50 mg PO DINNER Check with primary doctor 04/25/20 [History Last Taken 05/25/20] Lactobacillus rhamnosus GG 10 billion cell-inulin 200 mg capsule 2 ea PO QHS digestion 05/26/20 [History Last Taken 05/26/20] magnesium hydroxide 400 mg/5 mL oral suspension 30 ml PO PRN PRN bowels 05/26/20 [History Last Taken 05/25/20] metoprolol tartrate 25 mg tablet 25 mg PO BID heart rate 05/26/20 [History Last Taken 09/10/20] nystatin 100,000 unit/gram topical cream 1 applic topical BID reddness 05/26/20 [History Last Taken 05/26/20] acetic acid 0.25 % irrigation solution 60 ml IR QHS catheter 09/02/20 [History Last Taken Unknown] docusate sodium 100 mg capsule 100 mg PO DAILY 09/02/20 [History Last Taken Unknown] amoxicillin 500 mg-potassium clavulanate 125 mg tablet 500 mg (0.8 x 500-125 mg) PO Q12H #42 tabs 09/15/20 [Rx Last Taken Unknown] baclofen 10 mg tablet 20 mg (2 x 10 mg) PO TID 09/15/20 [Rx Last Taken Unknown] docusate sodium 100 mg capsule 100 mg PO BID 09/15/20 [Rx Last Taken Unknown] food supplemt, lactose-reduced 120 ml PO 4X/DAY 09/15/20 [Rx Last Taken Unknown] ketoconazole 200 mg tablet 200 mg PO DAILY 09/15/20 [Rx Last Taken Unknown] ketoconazole 200 mg tablet 200 mg PO DAILY #30 tabs 09/15/20 [Rx Last Taken Unknown] metoprolol tartrate 25 mg tablet 25 mg PO BID 09/15/20 [Rx Last Taken Unknown] mupirocin 2 % topical ointment 1 applic topical .QDAILY #3 tubes 09/15/20 [Rx Last Taken Unknown] nystatin 100,000 unit/gram topical powder 1 applic topical BID 09/15/20 [Rx Last Taken Unknown] polysaccharide iron complex 150 mg iron capsule 150 mg PO DAILYCM #30 caps 09/15/20 [Rx Last Taken Unknown] potassium chloride 20 mEq tablet,extended release(part/cryst) 20 meq PO BIDCM #60 tabs 09/15/20 [Rx Last Taken Unknown] promethazine 25 mg tablet 25 mg PO 4X/DAY PRN PRN NAUSEA/VOMITING #30 tabs 09/15/20 [Rx Last Taken Unknown] acetaminophen 650 mg tablet,extended release 650 mg PO 10/07/20 [History Last Taken Unknown] clobetasol 0.05 % topical cream 1 applic topical BID 07/04/21 [History Last Taken Unknown] estradiol 10 mcg vaginal insert 10 mcg vaginal QODAY 07/04/21 [History Last Taken Unknown] fluconazole 200 mg tablet See Rx Instructions .Route .COMPLEX #2 tabs 10/03/21 [Rx Last Taken Unknown] ciprofloxacin HCl 500 mg tablet 500 mg PO BID #28 tabs 11/14/21 [Rx Last Taken Unknown] gabapentin 100 mg capsule 100 mg PO BID #20 caps 11/14/21 [Rx Last Taken Unknown] fluconazole 200 mg tablet 200 mg PO DAILY #2 tabs 03/13/22 [Rx Last Taken Unknown] promethazine 25 mg tablet 25 mg PO Q6H PRN PRN Nausea #10 TABLETS 12/18/23 [Rx Last Taken Unknown] Allergy/AdvReac Type Severity Reaction Status Date / Time bacitracin Allergy Rash Verified 12/18/23 14:52 [From Neosporin ([id number])] neomycin Allergy Rash Verified 12/18/23 14:52 [From Neosporin ([id number])] ondansetron [From Zofran] Allergy palpitation Verified 12/18/23 14:52 s polymyxin B Allergy Rash Verified 12/18/23 14:52 [From Neosporin ([id number])] Sulfa (Sulfonamide Allergy Rash Verified 12/18/23 14:52 Antibiotics) clindamycin AdvReac Intermediate Rash Verified 12/18/23 14:52 metronidazole [From Flagyl] AdvReac Other Verified 12/18/23 14:52 Surgical History (Updated 12/18/23 @ 15:[address] Hany Tapia MD) History of colostomy Hx of cholecystectomy Social History Smoking Status: Never smoker ROS ROS ED Constitutional Constitutional ED: Denies chills or fever(s) Eyes Eyes: Denies change in vision or diplopia ENT ENT ED: Denies rhinorrhea or sore throat Cardiovascular Cardiovascular: Denies chest pain or palpitations Respiratory/Chest Respiratory/Chest: Denies cough or dyspnea Gastrointestinal Gastrointestinal: Reports as per HPI, abdominal pain and nausea; Denies melena or vomiting Genitourinary Genitourinary ED: Denies dysuria or hematuria Musculoskeletal Musculoskeletal: Denies back pain or neck pain Integumentary Denies abscess or rash Psychiatric Psychiatric: Denies anxiety or suicidal thoughts EXAM Physical Exam Const Vital Signs: 12/18/23 14:52 Temperature 98.2 F Temperature Source Temporal Pulse Rate 103 H Respiratory Rate 20 H Blood Pressure 146/86 H Blood Pressure Mean 106 Pulse Ox 100 Oxygen Delivery Method Room Air Positive well nourished, well developed and obese General Appearance ED: well developed and NAD Nutritional Appearance: obese HEENT Reports moist mucous membranes normocephalic and atraumatic Eyes PERRL and EOMs intact bilaterally Neck full ROM and supple Resp normal respiratory effort and clear to auscultation bilaterally Cardio regular rate, regular rhythm and no murmurs GI non-distended GI Narrative: Tender in the left upper quadrant and mid abdomen no guarding or rebound. There are some small chunks of hard nonbloody stool present in the colostomy bag along with some air/gas. There is no tenderness around the colostomy. The colostomy site proper appears healthy and unremarkable otherwise. Auscultation: normoactive bowel sounds Palpation: soft Back/Spine no CVA tenderness General Back: other FROM Extremity normal to inspection General Extremety ED: Negative for edema, pulses abnormal or tenderness General Extremity: Negative for edema or pulses abnormal Neuro oriented x3, CN's II-XII intact bilaterally, moves all extremities and no sensory deficits noted Sensorium / Orientation: awake and alert Motor Exam: general weakness Psych mental status grossly normal and thought process normal Skin no rashes or lesions noted and no wounds MDM MDM MDM Narrative Medical decision making narrative: Patient states she had contacted her surgeon and has an outpatient CT scheduled but her pain got worse today, along with nausea I think it would be worth performing the CT emergently in order to evaluate for small bowel obstruction although I think constipation is probably more likely given the exam and presence of hard stool in the bag which they state was not present prior to coming to the emergency department. She was given morphine and Zofran for symptoms while we ran these tests. Labs are unremarkable, I reviewed the images of the CT abdomen/pelvis with IV contrast as well as report which I agree with, it is negative for any large or small bowel obstruction and consistent with constipation with a plethora of stool in the colon. I reviewed this with the patient, and had a brief discussion with Dr. Solis with surgery who advises treating constipation just like anyone without a colostomy. Therefore I am giving her magnesium citrate and instructions for use. She was advised to follow-up as scheduled with Dr. Coyne in a few days and she can cancel her outpatient CT since we did it here. With regards to her rectal discharge, I did examine her perianal area and sacral wounds with nursing. The wounds are healed and there is no active wound or draining of anything. In the perianal area there is no tenderness or feeling of an abscess. I am not able to express any discharge from the area. She does have an active vaginal discharge which we discussed can she states that is chronic and she is following with [facility] for that and doing some estrogen suppositories. Lab Data Attestation: I reviewed the patient's lab results. Labs: Laboratory Results - last 24 hr 12/18/23 15:22 WBC 10.2 RBC 4.65 Hgb 12.9 Hct 41.6 MCV 89.5 MCH 27.7 MCHC 31.0 L RDW Std Deviation 49.1 H RDW Coeff of Homer 14.9 H Plt Count 378 MPV 9.3 Immature Gran % (Auto) 0.400 Neut % (Auto) 75.3 H Lymph % (Auto) 18.5 L Geary % (Auto) 4.6 Eos % (Auto) 0.6 Baso % (Auto) 0.6 Absolute Neuts (auto) 7.7 Absolute Lymphs (auto) 1.89 Nucleated RBC % 0 Sodium 136 Potassium 3.5 Chloride 104 Carbon Dioxide 26.0 Anion Gap 6 BUN 9 Creatinine 0.45 L Estim Creat Clear Calc 76.67 Est GFR (MDRD) Af Amer 179 Est GFR (MDRD) Non-Af 148 BUN/Creatinine Ratio 20.1 H Glucose 147 H Calcium 8.6 Total Bilirubin 0.30 AST 13 L ALT 15 Alkaline Phosphatase 81 Total Protein 7.9 Albumin 2.7 L Globulin 5.2 H Albumin/Globulin Ratio 0.5 L Radiography Diagnostic Testing: Clinical Impression(s) from Imaging Studies Abdomen/Pelvis CT 01/20/24 15:19 IMPRESSION: 1. Anterior colostomy is noted with no evidence of bowel dilatation, air-fluid levels or dilatation to suggest obstruction. Prominent stool throughout the colon is noted, correlate for underlying constipation. Additional senescent changes as above. 2. Suprapubic catheter in place with bladder contracted and mild superimposed cystitis not excluded in the appropriate clinical setting. Electronically Signed: Senthil Allen, DO at 16:35 EST , Management Discussion w/another healthcare provider: Human Services Instructor (Surgery) Discharge Plan Triage Chief Complaint: Abd Pain ED Provider: Hany Tapia Dx/Rx/DC Orders Clinical Impression: Diffuse abdominal pain, Acute constipation, Rectal discharge Instructions: Magnesium Citrate Oral solution, ED Constipation (Adult) Prescriptions: New promethazine [promethazine] 25 mg tablet 25 mg PO Q6H PRN PRN (Reason: Nausea) Qty: 10 0RF No Action baclofen 20 MG tablet 1 - 2 tab PO Q8H PRN PRN (Reason: muscle spasms) letrozole 2.5 MG tablet 1 tab PO DAILY oxybutynin chloride 5 MG tablet 2 tab PO BID cholestyramine (with sugar) 4 G powder 1 packet PO DAILY Rx Instructions: pt reports that she takes 1/3 packet at home. cholecalciferol (vitamin D3) 1,000 UNIT tablet 1,000 unit PO DINNER ascorbic acid (vitamin C) 500 MG capsule 1 tab PO BID cranberry extract 200 MG capsule 200 mg PO DINNER nitrofurantoin macrocrystal 50 MG capsule 50 mg PO DINNER Pro Stat 5 ml PO DINNER Rx Instructions: Domingo when at the hospital magnesium hydroxide 30 ML suspension 30 ml PO PRN PRN (Reason: bowels) nystatin 15 GM cream 1 applic topical BID metoprolol tartrate 25 MG tablet 25 mg PO BID Lactobac. rhamnosus GG-inulin 1 EACH capsule 2 ea PO QHS acetaminophen 650 MG tablet extended release 650 mg PO acetic acid 1,000 ML solution 60 ml IR QHS docusate sodium 100 MG capsule 100 mg PO DAILY ketoconazole 200 MG tablet 200 mg PO DAILY 0RF polysaccharide iron complex 150 MG capsule 150 mg PO DAILYCM Qty: 30 6RF baclofen 10 MG tablet 20 mg PO TID 0RF promethazine 25 MG tablet 25 mg PO 4X/DAY PRN PRN (Reason: NAUSEA/VOMITING) Qty: 30 1RF docusate sodium 100 MG capsule 100 mg PO BID 0RF nystatin 1 APPLIC bottle 1 applic TOPICAL BID 0RF Protocol: *Topical Application Instructions APPLICATION INSTRUCTIONS: dust lightly to abdominal folds food supplemt, lactose-reduced 120 ML liquid 120 ml PO 4X/DAY 0RF metoprolol tartrate 25 MG tablet 25 mg PO BID 0RF amoxicillin-pot clavulanate 500 MG tablet 500 mg PO Q12H Qty: 42 1RF ketoconazole 200 MG tablet 200 mg PO DAILY Qty: 30 1RF potassium chloride 20 MEQ tablet 20 meq PO BIDCM Qty: 60 1RF mupirocin 1 APPLIC ointment 1 applic TOPICAL .QDAILY Qty: 3 3RF clobetasol 0.05 % Cream 1 applic TOPICAL BID Rx Instructions: apply thin layer betwen Ble as needed for discharge estradiol 10 mcg Insert 10 mcg VAGINAL QODAY Rx Instructions: three times a week fluconazole 200 mg tablet See Rx Instructions .ROUTE .COMPLEX Qty: 2 0RF Rx Instructions: 200 mg orally x 1 dose, may repeat in 1 week if needed ciprofloxacin HCl 500 mg tablet 500 mg PO BID Qty: 28 0RF gabapentin 100 mg capsule 100 mg PO BID Qty: 20 0RF fluconazole 200 mg tablet 200 mg PO DAILY Qty: 2 0RF Primary Care Provider: Kleber Olivera Referrals: Gabriele Coyne MD [Med Staff - Active Staff] - 12/21/23 (as scheduled; you can call Wednesday and cancel your outpatient CT) Kleber Olivera MD [Primary Care Provider] - Activity Restrictions/Additional Instructions: If you do not have good stool output in 24 hours after drinking the magnesium citrate with plenty of water, you may repeat with the other half of the bottle. Phenergan prescription is provided in case you needed for nausea, try to limit this unless really needed as repeated doses can sometimes cause constipation to get worse. Disposition Disposition: Home, Self Care
[2023-12-18 15:29] LABS: Absolute Lymphocyte Count 1.89 X10^3/uL (0.83-4.51); Absolute Neutrophil Count 7.7 X10^3/uL (2.0-7.7); Basophil# 0.06 X10^3/uL; Basophil% 0.6 % (0-1); Eosinophil# 0.06 X10^3/uL; Eosinophils% 0.6 % (0-5); Hematocrit 41.6 % (37-47); Hemoglobin 12.9 g/dL (12.0-15.0); Lymphocyte # 1.89 X10^3/ul (0.83-4.51); Lymphocyte % 18.5 % (19-41); Mean Corpuscular Hgb 27.7 pg (27.0-32.0); Mean Corpuscular Volume 89.5 fL (81-99); Mean Platelet Vol. 9.3 fl (6.2-12.0); Monocyte# 0.47 X10^3/uL; Monocyte% 4.6 % (0-10); NRBC Flagged by Analyzer 0 % (0-5); Neutrophil # 7.67 X10^3/uL (2.7-7.7); Neutrophil % 75.3 % (47-70); Platelet Count 378 K/mm3 (150-450); RBC Distribution Width CV 14.9 % (11.6-14.6); RBC Distribution Width SD 49.1 fl (35.1-43.9); Red Blood Count 4.65 M/mm3 (4.2-5.4); White Blood Count 10.2 K/mm3 (4.4-11.0)
[2023-12-18 15:39] VITALS: BMI 30.4
[2023-12-18] MEDS: Metoclopramide 10 MG/2 ML Vial 5 MG IV (15:40)
[2023-12-18] MEDS: Morphine 4 MG/ML Syringe IV (15:40)
[2023-12-18] MEDS: 0.9% Normal Saline (1000mL) 1,000 ML 125 ML IV (15:40)
[2023-12-18 15:51] LABS: ALB/GLOB Ratio 0.5 RATIO (0.9-2.4); AST(SGOT) 13 U/L (15-37); Alanine Aminotransfer ALT/SGPT 15 U/L (13-56); Albumin, Serum 2.7 g/dL (3.2-5.0); Alkaline Phosphatase 81 U/L (45-117); Anion Gap 6 (5-15); BUN 9 mg/dL (7-18); BUN/Creat Ratio 20.1 RATIO (10-20); Calcium,Total 8.6 mg/dL (8.5-10.1); Chloride 104 mmol/L (98-107); Creatinine, Serum 0.45 mg/dL (0.55-1.02); EST Glomerular Filtration Rate 148 mL/min (>60); Est Glom Filt Rate - Afr Amer 179 mL/min (>60); Estimated Creatinine Clearance 76.67 ml/min; Globulin 5.2 g/dL (2.2-4.2); Glucose 147 mg/dL (74-106); Potassium 3.5 mmol/L (3.5-5.1); Protein, Total 7.9 g/dL (6.4-8.2); Sodium Level 136 mmol/L (136-145)
--- OUTSIDE RECORDS SUMMARY | 2023-12-18 15:53 | XMS RPT_ITS | CCD ---
Author Name Unknown Address [id number] [place] [address] Organization [facility] Care Team Providers Care Tire Worker Name Role Phone DR WALI GUIDO DO Primary Care Physician Jovon Levy Primary Care Provider DR. WALI GUIDO DO Referring Unavailable DR. WALI GUIDO DO Primary Care Unavailable JOE MENA MD Attending Unavailable DR. WALI GUIDO DO Primary Care Unavailable MADISYN WHATLEY MD, BA Attending Unavailable JOE MENA MD Attending Unavailable DR. WALI GUIDO DO Primary Care Unavailable JOE MENA MD Admitting Unavailable JOE MENA MD Attending Unavailable LATA GOLDSTEIN, DR. WALI Hernandez Primary Care Unavailable LATA GOLDSTEIN, DR. WALI Hernandez Primary Care Unavailable JOE MENA MD Attending Unavailable MADISYN WHATLEY MD, BA Consulting Unavailable JOE MENA MD Admitting Unavailable DR. WALI GUIDO DO Primary Care Unavailable JOE MENA MD Attending Unavailable RENNY MALAVE MD Consulting Unavailable MADISYN WHATLEY MD, BA Consulting Unavailable DR. WALI GUIDO DO Primary Care Unavailable JOE MENA MD Attending Unavailable Jovon Levy Primary Care Provider [phone] KLEBER OLIVERA Primary Care Unavailable KLEBER OLIVERA Consulting Unavailable KLEBER OLIVERA Attending Unavailable KLEBER OLIVERA Admitting Unavailable PROVIDER, UNKNOWN Consulting Unavailable PROVIDER, UNKNOWN Consulting Unavailable PROVIDER, UNKNOWN Consulting Unavailable OSWALDO LIM MD Attending Unavailable KLEBER OLIVERA Consulting Unavailable OSWALDO LIM MD Admitting Unavailable OSWALDO LIM MD Primary Care Unavailable PROVIDER, UNKNOWN Consulting Unavailable PROVIDER, UNKNOWN Consulting Unavailable PROVIDER, UNKNOWN Consulting Unavailable VACCARITHAO, BRYAN Admitting Unavailable VACCARIELLO, BRYAN Primary Care Unavailable VACCARITHAO, BRYAN Consulting Unavailable VACCARITHAO, BRYAN Attending Unavailable PROVIDER, UNKNOWN Consulting Unavailable PROVIDER, UNKNOWN Consulting Unavailable PROVIDER, UNKNOWN Consulting Unavailable LEONEL, KLEBER Primary Care Unavailable LEONEL, KLEBER Consulting Unavailable LEONEL, KLEBER Attending Unavailable LEONEL, KLEBER Admitting Unavailable PROVIDER, UNKNOWN Consulting Unavailable PROVIDER, UNKNOWN Consulting Unavailable PROVIDER, UNKNOWN Consulting Unavailable Leonel ROSARIO, Kleber Joyner Unavailable Kiley ROSARIO, Dr. Bryan Perry Unavailable Physical Therapy, Ulices Jones Unavailable Cih ROSARIO, Dr. Jose Joyner Unavailable Monica ROSARIO, Dr. Aguilar Unavailable [phone] Unavailable Tanvir ROSARIO, Dr. Blakely Unavailable Rustam ROSARIO, Syl Murphy Unavailable Louise STEAMTABLE ATTENDANT RAILROAD, Nereida Unavailable Taz APPLE-C, Colleen Martinez Unavailable Landon STEAMTABLE ATTENDANT RAILROAD, Tasha E Unavailable Unavailable Gogoi (scribe), Hemanta Unavailable Unavaila toby Moreno STEAMTABLE ATTENDANT RAILROAD, Cris Unavailable Unavailable Jovon Levy MD Unavailable Susy MELGAR, Bridgett Barros Unavailable Unavail able Gigi BOUDREAUXN, Lindsey Unavailable Unavailable Deb MELGAR, Elaine Hernandez Unavailable Unavaila toby Lowe RN, Sonia Unavailable Manav MELGAR, Janine Cherry Unavailable Unavailable Mutersbaugh STEAMTABLE ATTENDANT RAILROAD, Radha K Unavailable Unavai henrry APPLE-C, Alicia J Unavailable Liborio (Scribe), William Unavailable Unavailab le Aaron COMMERCIAL DOOR INSTALLER, Amy Unavailable Unavailable Isaías STEAMTABLE ATTENDANT RAILROAD, Laila Barros Unavailable Unavailab le Justin STEAMTABLE ATTENDANT RAILROAD, Syl Perry Unavailable Unavailab luis Caceres STEAMTABLE ATTENDANT RAILROAD, Mary Unavailable Unavailab luis Rodriguez MD, Bryan Hernandez Unavailable Vess STEAMTABLE ATTENDANT RAILROAD, Gen Barros Unavailable Unavailable Frederic STEAMTABLE ATTENDANT RAILROAD, Elizabeth Unavailable Unavailabl Brandie Dunn LPN Unavailable Unavaila ble Unavailable Unavailable [facility] Unavailabl JANINE Maldonado Referring Unavailable [facility] Unavailabl e MIRANDA RIVERS Referring Unavailable [facility] Unavailabl e VIRIDIANA ARMENDARIZ Attending Unavailable [facility] Unavailabl e BERNARDA ALMANZA Attending Unavailable [facility] Unavailabl e [facility] Referring Unavailabl e JANINE LYNNE Attending Unavailable [facility] Unavailabl e VIRIDIANA ARMENDARIZ Attending Unavailable [facility] Unavailabl e ABRAHAM, MIRANDA Referring Unavailable [facility] Unavailabl e ABRAHAM, MIRANDA Referring Unavailable MIRANDA RIVERS Attending Unavailable Allergies Allergy Classification Reported Allergen(s) Allergy Type Date of Onset Reaction(s) Facility (16 sources) bacitracin / neomycin / polymyxin b; Translations: [bacitracin/neom ycin/polymyxin B topical] Drug Allergy 1 [facility] (20 sources) Clindamycin; Translations: [clindamycin] Drug Allergy [facility] (20 sources) metroNIDAZOLE; Translations: [metronidazole] Drug Allergy [facility] (12 sources) Ondansetron; Translations: [ondansetron] Drug Allergy HEART RACE [facility] (4 sources) Sulfonamides (Antibiotic); Translations: [sulfa drugs] Drug allergy BLISTERS, RED RASH [facility] (14 sources) Ondansetron; Translations: [ONDANSETRON HCL] Drug Allergy 2 Other: See Comments [facility] (14 sources) Sulfonamides (Antibiotic); Translations: [SULFA (SULFONAMIDE ANTIBIOTICS)] Drug Allergy 5 Hives, Itching [facility] (12 sources) EGGS [Other] Propensity to adverse reactions 6 [facility] (12 sources) SOUR CREAM [Other] Propensity to adverse reactions 6 [facility] (1 source) Bacitracin / Neomycin / Polymyxin B Drug Allergy [facility] Rep[facility] (1 source) Egg Drug allergy (disorder) [facility] (1 source) Ondansetron Drug Allergy [facility] (1 source) Sulfonamides (Antibiotic) Drug allergy (disorder) [facility] (8 sources) Miconazole [facility] ([facility]) Sulfonamides (Antibiotic) Rash [facility] (2 sources) egg extract; Translations: [EGG] Drug Allergy [address] [place] [address] [facility] (2 sources) NEOMYCIN-BACITRA GALEN-POLYMYXIN; Translations: [NEOMYCIN-BACITR ACIN-POLYMYXIN] Propensity to adverse reactions to drug (disorder) [address] [facility]ository (1 source) OTHER; Translations: [OTHER] Propensity to adverse reactions (disorder) 6 [facility] Repository Medications Current Medications Medication Drug Class(es) Dates Sig (Normalized) Sig (Original) acetaminophen 325 mg oral capsule (12 sources) Start: 03-25-2022 Tylenol 325 mg oral capsule Dose : 650 mg = 2 cap(s), Oral, q6h, PRN as needed for fever/PAIN, # 20 cap(s), 0 Refill(s) Start Date: 03/25/22 Status: Ordered Completed/Discontinued Medications Medication Drug Class(es) Dates Sig (Normalized) Sig (Original) acetaminophen 500 mg / HYDROcodone bitartrate 5 mg oral tablet (8 sources) Opioid Agonist Start: 05-25-2012 End: 03-06-2013 take 1-2 tablets by mouth every six hours as needed for pain VICODIN, 5-500MG (Oral Tablet) ; 1-2 Tablet q 6hrs prn pain for 0 days Quantity: 30 {Tablet} Refills: 0 Ordered: 06-Jul-2012 MD Kleber Olivera Start: 25-May-2012 End: 06-Mar-2013 Status: Discontinued Comments: This order discontinued per [facility]. Problems Active Problems Problem Classification Problem Date Documented Da te Episodic/Chronic Acute bronchitis (20 sources) Acute bronchitis; Translations: [Acute bronchitis, unspecified] 12-07-2018 Episodic Allergic reactions (20 sources) Eczema; Translations: [Dermatitis, unspecified] 03-07-2019 Episodic Anxiety disorders (20 sources) Generalized anxiety disorder; Translations: [Generalized anxiety disorder] 04-12-2023 Chronic Cancer of breast (20 sources) Malignant tumor of breast ; Translations: [Malignant neoplasm of unspecified site of unspecified female breast] Onset: 08-13-2011 08-13-2011 Chronic Cancer of breast (20 sources) History of malignant neoplasm of breast; Translations: [Personal history of malignant neoplasm of breast] Onset: 11-29-2010 Episodic Past or Other Problems Problem Classification Problem Date Documented Da te Episodic/Chronic Other gastrointestinal disorders (12 sources) Slow transit constipation; Translations: [Slow transit constipation] Onset: 12-23-2007 12-23-2007 Episodic Other injuries and conditions due to external causes (12 sources) Foreign body in genitourinary tract; Translations: [Foreign body in genitourinary tract, part unspecified, initial encounter] Onset: 09-17-2009 09-17-2009 Episodic Pneumonia (except that caused by tuberculosis or sexually transmitted disease) (8 sources) Pneumonia (except that caused by tuberculosis or sexually transmitted disease) 03-18-2012 Unclassified (8 sources) Consultation for in home care - Face to face encounter for home care. 04-13-2023 Unclassified (8 sources) Jaw pain - The onset of the jaw pain has been gradual and has been occurring in a persistent pattern. The course has been constant. The pain is characterized as mild. The pain affects the right side of jaw . There are no relieving factors . There has been associated trauma ([place] if from fall in February 2022) . Note for Jaw pain : States has been on going for several months but has gotten worse over the past 2 weeks. No trauma, no uri sx. 01-27-2023 Unclassified (8 sources) Right ear hearing loss - Unable to hear out of right ear since fall on 02/27/22. reviewed by [facility] 03-19-2022 Unclassified (8 sources) Home Visit - Patient seen Wednesday afternoon for home visit. Patient has generally been stable. Recent surgery for surgical flap to treat large decubitus ulcer. Successful surgery. Patient still has significant vulvar pruritis. Minimally responsive to topical and oral antifungals. 10-26-2020 Unclassified (6 sources) Follow up consultation - The patient is here to follow-up after a consult ([place]). 07-26-2020 Unclassified (6 sources) [ADDITIONAL REASON] Transition into care - The patient is transitioning into care from a [facility] facility ([place]) and a summary of care was not provided. 07-26-2020 Unclassified (8 sources) Rash - The onset of the rash has been acute and has been occurring in a persistent pattern for 5 days. The course has been constant. The rash is characterized as red. The rash was first seen on the upper extremity (left arm). It spread to the neck, the upper extremity (the ars are the worse- left arm) and the lower extremity. There has been no associated itching, pain, drainage or edema. Note for Rash : they changed from gain powder, to gain liquid - within the last 5-6 days pt also was suppsoe to be taking calcium but just started taking itpt is suppose to have surgery next wednesday04-26-2020 Unclassified (8 sources) Well adult female - The patient feels well with minor complaints (just the wound vac), has decreased energy level and is sleeping well. The patient has a balanced diet. The patient does not exercise. The patient sleeps 7 hours per night. Note for Well adult female : bernardo 07/11/19last labs 07/11/19 lipid, cmpwants you to look at the wound and area around the wound 02-02-2020 Unclassified (8 sources) Cold Symptoms - Symptoms include dry cough, wheezing (some wheezing and feels short of breath), general malaise (wanting to sleep more) and headache, but do not include nasal congestion, runny nose, ear pain, ear fullness, sore throat, fever, chills or facial pain. The onset was 1 week(s) ago. The symptoms occur constantly. The patient describes this as moderate in severity and improving (states that she is better except the cough). Current treatment includes antibiotics (finished Zpak yesterday). The patient has been exposed to an individual with an upper respiratory infection (). 03-30-2019 Unclassified (8 sources) Arm pain - The pain is in the right arm. The onset of the pain has been acute and has been occurring in a persistent pattern for 1 day. The course has been increasing. The pain is described as moderate. Note for Pain : feels achey, tired, run down.warm to touch. very sore swollen and red 07-08-2018 Unclassified (8 sources) Flank pain - The onset of the flank pain has been sudden and has been occurring in a persistent pattern for 2 days. The course has been constant. The pain is described as a moderate sharp and stabbing pain. The flank pain is described as being located in the left flank , and it does not radiate. There has been no associated fever or nausea. 03-22-2018 Unclassified (8 sources) Cold Symptoms - Symptoms include sore throat, scratchy throat, dry cough and headache, but do not include nasal congestion, runny nose, ear pain, ear fullness, productive cough or fever. The onset was sudden 1 day(s) ago. The symptoms occur constantly. The patient describes this as moderate in severity and worsening. The patient is not currently being treated for this problem. Risk factors do not include child in daycare or smoking. The patient has been exposed to an individual with similar symptoms, but has not been exposed to an individual with a cough, an individual with an upper respiratory infection or an individual with strep. 08-10-2017 Unclassified (8 sources) Cold Symptoms - Symptoms include productive cough (does not have the strength to expel the phlegm), fever (possbily, would get warm at times, did not check temp), chills, general malaise (chest congestion) and headache, but do not include sneezing, nasal congestion, runny nose, ear pain, sore throat, wheezing or facial pain. The onset was sudden 1 week(s) ago. The symptoms occur constantly. The patient describes this as moderate in severity and worsening (the last of couple days). Current treatment includes non-prescription cold medication, rest and acetaminophen. Risk factors do not include smoking. The patient has been exposed to an individual with an upper respiratory infection (her has bronchitis). Medical history includes recurrent sinusitis (in the past), but patient denies history of seasonal allergies or asthma. Note for Upper respiratory infection : h/o MS and is in w/c; h/o pneumonia 4 years ago that required hospital stay 02-10-2016 Unclassified (8 sources) Ankle pain - The onset of the ankle pain has been acute and has been occurring in a persistent pattern for 4 days. The course has been gradually worsening. The pain is characterized as a moderate to severe sharp stabbing. The pain is in the left ankle. The pain is aggravated by any movement. 08-22-2015 Unclassified (8 sources) Rash - The onset of the rash has been acute and has been occurring in a persistent pattern for days (1). The course has been constant. The rash is characterized as red. The rash was first seen on the lower extremity (left foot). There has been associated itching, erythema and edema. 03-12-2015 Unclassified (8 sources) Infected Finger - Pt here today because she got her nails done and polished on . Pt noticed on Wednesday that her middle finger of right hand was swollen and tender. Redness and swelling go down 1/2 of finger and pt states that area underneath nail has been seeping a yellowish drainage ever since Wednesday morning. Has been soaking finger in Epson Salts. No fever or chills. Since it has been draining there has not been as much pressure under nail bed as there was initially. reviewed by [facility] 09-10-2014 Unclassified (8 sources) possible cellultiis - Patient's was helping her get ready this am and noticed a large reddened area on her left hip/buttock area. It is warm to the touch. She did have a fever of 100.4 this am when home health was there. She has history of cellulitis in March and it required hospitalization for IV antibiotics (Zosyn). She also has a suprapubic catheter and would like the area looked at, is reddened and inflammed looking (home health nurse wondered about yeast). Has been using tylenol for the fever and pushing fluids. 07-28-2013 Unclassified (8 sources) Follow up consultation - The patient is here to follow-up after hospitalization ([facility] Dx: Cholelithiasis) on : (06/09/13-06/11/13). Current symptoms include other (diarrhea). Note for Consultation follow-up : Patient had a cholecystectomy done on on 06/10/13. 07-11-2013 Unclassified (8 sources) Follow up consultation - The patient is here to follow-up after hospitalization ([facility] Dx: Cellulitis) on : (04/21/13-04/24/13). Current symptoms include other (cellulitis-improving ). Note for Consultation follow-up : Patient had cellulitis on his left buttocks that spread around to her upper left thigh. Patient reports it has improved 2000%! . 05-03-2013 Unclassified (8 sources) Shoulder pain - The onset of the shoulder pain has been gradual and has been occurring in a persistent pattern for months. The course has been without change. The pain is characterized as a moderate to severe sharp stabbing (when she tries to lift her arm). The pain is described as being located in the right shoulder and is aggravated by any movement. Note for Shoulder pain : pt wants injection 07-22-2012 Unclassified (8 sources) Right arm pain - Continues with right arm pain. Has been doing a course of physical therapy but continues with pain. May have been just a slight improvement with the PT. Not worse. Ibuprofen is being used w minimla benefit. Vicodin /ultram made her nauseous. 07-06-2012 Unclassified (8 sources) Shoulder Pain - The onset of the shoulder pain has been sudden following an incident not at work and has been occurring in an intermittent pattern for 1 month. The course has been increasing. The shoulder pain is characterized as a moderate to severe sharp stabbing. The shoulder pain is described as being located in the right shoulder. The shoulder pain is aggravated by physical activity and any movement. Relieving factors include rest. Associated features include decreased ROM, difficulty overhead activities, difficulty dressing oneself, difficulty combing hairs, difficulty hooking bra, difficulty with pushing, difficulty with pulling and difficulty with lifting. There have been no previous diagnostic tests. There have been no previous evaluations. Previous physical therapy has included home exercise program. There have been no previous surgeries. There has been no use of assistive devices. Previous medication use has included anti-inflammatory medication. Note for Shoulder Pain : reviewed by [facility] 05-24-2012 Unclassified (8 sources) assisted visit - Patient is being seen today for a routine assisted visit. No new problems have been noted since the last visit. The patient does not voice any new complaints. Vital signs have been stable recently. Intake has been normal and weight has been nearly stable. 10-21-2011 Unclassified (8 sources) [place] Admit - [place] [facility] [place] for [place] cancer. Patient has a history of advanced MS with severe weakness of all extremities and requires skilled care for rehabilitation. 10-10-2011 Unclassified (8 sources) Rash - The onset of the rash has been acute and has been occurring in a persistent pattern for 2 weeks. The course has been increasing. The rash is characterized as red. The rash was first seen on the upper extremity. It spread to the back. There has been associated itching. Note for Rash : also check spot on right ear 09-04-2011 Unclassified (2 sources) Transition into care - The patient is transitioning into care from [place] [facility] facility [place]) and a summary of care was not provided. 07-26-2020 Unclassified (2 sources) [ADDITIONAL REASON] Follow up consultation - The patient is here to follow-up after a consult ([place]). 07-26-2020 Results Test Name Value Interpretation Reference Range Facil ity Vital Signs Date Time Vital Sign Value Performing Clinician Faci lit 09-14-2023 08:23-0400 Diastolic blood pressure 76 mm[Hg] Viridiana Armendariz APRN.CNM Work Phone: [facility] 09-14-2023 08:23-0400 Systolic blood pressure 126 mm[Hg] Viridiana Armendariz APRN.CNM Work Phone: [facility] 04-13-2023 11:35-0400 Diastolic blood pressure 72 mm[Hg] Kleber Olivera MD Work Phone: [facility] Encounters Encounter Date Encounter Type Care Provider Facility Start: 12-03-2023 ambulatory [facility] Fa cility:[facility] Start: 11-16-2023 End: 11-17-2023 ambulatory [facility] Facility:[facility] Start: 11-09-2023 End: 11-09-2023 ambulatory [facility] Facility:[facility] Start: 10-28-2023 End: 10-28-2023 ambulatory [facility] Start: 10-28-2023 End: 10-28-2023 Melissa Olivera MD Work [facility] Start: 10-27-2023 End: 10-27-2023 ambulatory [facility] Facility:[facility] Start: 10-18-2023 End: 10-18-2023 Medication Kleber Olivera MD Work Phone: [facility]. Start: 10-01-2023 Documentation procedure Mammog ronald Coordinator [facility] Start: 10-01-2023 Letter encounter Mammography Coordinator [facility] Department Start: 10-01-2023 Telephone encounter Cathy casillas MD Work Phone: Mammography Procedures Date Procedure Procedure Detail Performing Clinician Start: 10-28-2023 Urinalysis KLEBER Linares Plan of Treatment Date Care Activity Detail Author Start: 09-28-2025 DIABETES SCREEN DIABETES SCREEN [facility] Start: 09-28-2025 Diabetes Screening Diabetes Screening [facility] Start: 09-30-2024 Mammography Mammogram Screening [facility] Start: 09-25-2023 Mammography [facility] Start: 07-30-2023 Influenza vaccination Influenza Vaccine (#1) [facility] Start: 11-29-2022 Advance Directive Discussion Advance Directive Discussion [facility] Start: 11-29-2022 Depression Assessment Depression Assessment [facility] Start: 07-30-2022 Influenza vaccination INFLUENZA (#1) [facility] Start: 11-29-2021 ADVANCE DIRECTIVE DISCUSSION ADVANCE DIRECTIVE DISCUSSION [facility] Start: 11-29-2021 DEPRESSION ASSESSMENT DEPRESSION ASSESSMENT [facility] Start: 01-31-2021 Pneumococcal Vaccine: 65+ (2 - PPSV23 or PCV20) Pneumococcal Vaccine: 65+ (2 - PPSV23 or PCV20) [facility] Start: 09-05-2020 Mammography MAMMOGRAM [facility] Start: 2020 BONE DENSITY BONE DENSITY [facility] Start: 2020 Bone Density Screening Bone Density Screening [facility] Start: 2020 PNEUMOCOCCAL: 65+ (1 - PCV) PNEUMOCOCCAL: 65+ (1 - PCV) [facility] Start: 02-03-2015 DIABETES SCREEN DIABETES SCREEN [facility] Start: 2015 RSV Vaccine (1 - 1-dose 60+ series) RSV Vaccine (1 - 1-dose 60+ series) [facility] Start: 2005 SHINGRIX VACCINE (1 of 2) SHINGRIX VACCINE (1 of 2) [facility] Start: 2000 COLOGUARD (FIT-DNA) COLOGUARD (FIT-DNA) [facility] Start: 2000 Colonoscopy COLONOSCOPY [facility] Start: 2000 COLORECTAL CANCER SCREENING COLORECTAL CANCER SCREENING [facility] Start: [address] COLONOGRAPHY [facility] Start: 2000 FECAL OCCULT BLOOD FECAL OCCULT BLOOD [facility] Start: 2000 Lipid 1996 panel - Serum or Plasma Lipid Screening [facility] Start: 2000 LIPID SCREEN LIPID SCREEN [facility] Start: 2000 SIGMOIDOSCOPY SIGMOIDOSCOPY [facility] Start: 1974 Urine microalbumin profile [facility] Start: 1973 HEPATITIS C SCREENING HEPATITIS C SCREENING [facility] Start: 1967 Adult depression screening assessment DEPRESSION SCREENING [facility] Start: 1955 COVID-19 VACCINE (#1) COVID-19 VACCINE (#1) [facility] BACTERIAL VAGINOSIS NAAT BACTERI AL VAGINOSIS NAAT Lab Routine Vaginal odor Vaginal discharge 09/14/2023 9:42 AM EDT [facility] Work Phone: PAUL/TRICHOMONAS NAAT PAUL /TRICHOMONAS NAAT Lab Routine Vaginal odor Vaginal discharge 09/14/2023 9:42 AM EDT [facility] Work Phone: End: 10-30-2024 ASHLEY DIAGNOSTIC LEFT ASHLEY DIAGNOSTIC LEFT Radiology Routine Abnormal mammogram of left breast Personal history of breast cancer 1 Occurrences starting 10/01/2023 until 10/30/2024 [facility] Work Phone: Immunizations Immunization Date Immunization Notes Care Provider Dana vidal 02-01-2020 pneumococcal conjuga te vaccine, 13 valent JOE MENA MD [facility] Payers Date Payer Category Payer Medicare [id number] 2022 Unknown [id number] 2015 Medicare [employer] [facility] [id number] 2015-Present [phone] [facility] [place] [address] [facility] [id number] 2015 Unknown [id number] 1955 Unknown [id number] 7 1955 Unknown [id number] 7 1955 Unknown [id number] 7 1955 Unknown [id number] 7 1955 Unknown [id number] 7 1955 Unknown [id number] 7 1955 Unknown [id number] 7 1955 Unknown [id number] 1 1955 Unknown [id number] [id number] 1 1955 Unknown [id number] 1 1955 Unknown [id number] 1 Social History Date Type Detail Facility Start: 08-04-2011 End: 03-25-2022 Tobacco smoking status Never smoked tobacco (finding) [facility] Sex Assigned At Sex [facility] Start: 08-04-2011 Tobacco use and exposure Smokeless tobacco non-user [facility] Work Phone: Start: 07-15-2022 End: 09-30-2023 Alcohol intake Current non-drinker of alcohol (finding) [facility] Start: 1955 Sex Assigned At Not on file [facility] Start: 08-14-2022 End: 08-24-2022 Exposure to SARS-CoV-2 (event) Not sure [facility] Start: 08-27-2023 End: 09-14-2023 History of Social function [facility] Start: 08-27-2023 End: 09-14-2023 Tobacco use panel [facility] Adult Depression Screening Assessment 0 [facility] Tobacco Use: Tobacco Use: ; N ever smoker. [employer] Female [employer] Work Phone: Medical Equipment Procedure Code Equipment Code Equipment Origin al Text Equipment Identifier Dates Port Pwrprt Mri Inf 8fr Plas - [id number] Start: 12-11-2011 Functional Status Date Assessment Result Facility 08-25-2022 Functional Status Awake, [facility] Clinical Notes 04-07-2022 to 11-16-2023 Telephone Encounter - Alicia Adair - 10/01/2023 4:18 PM EDTTelephone Encounter - Alicia Adair - 10/01/2023 3:48 PM EDTLetter - Coordinator, Mammography - 10/01/2023 12:42 PM EDT Note Date & Type Note Facility 11-16-2023 Note HNO ID: [id number] Author: Janine Lynne MD Service: ? Author Type: Physician Type: Progress Notes Filed: 11/18/2023 7:28 PM Note Text: Nay Purcell 1955 REFERRING PHYSICIAN: Jovon Levy, * CHIEF COMPLAINT: Consult (Abnormal mamm) HPI: The patient is a 68 year old female presents with abnormal mammograms with abnormal calcifications noted on left breast mammograms. Patient presents to the office, upset, because she was told that she would have the biopsy today in this patient encounter. She would require a stereotactic breast biopsy for which we do not have such equipment in this building She denies palpable breast masses. She denies nipple discharge. She has had previous right breast cancer, status post right breast mastectomy done by Dr. Wallace, for which she states that she had 7 out of 12 lymph nodes positive. She states that she had adjuvant chemotherapy but denies postoperative radiation therapy. She states that her mother and sister had breast cancer. PAST MEDICAL HISTORY Diagnosis Date Breast cancer, right breast (HCC) 09/29/2011 IDCA, T2N2, ER+NJ+HER2- Cellulitis Multiple sclerosis (HCC) 11/29/1991 Other psoriasis and similar disorders Psoriasis PMH - PAST MEDICAL HISTORY OF 12/30/1999 FIBROCYSTIC BREAST DISEASE Postmenopausal atrophic vaginitis PAST SURGICAL HISTORY Procedure Laterality Date BIOPSY BREAST OPEN INCISIONAL Bx of breast, incisional BX BREAST PERC NEED W/GUID 08/05/11 U/S needle core UOQ right breast CHOLECYSTECTOMY 05/2013 Cholecystectomy COLONOSCOPY 08/15/2013 MAST MODF RAD W/AX LYMPH NOD W/WO PECT/MELANIE MIN 10-06-2011 right PAST SURGICAL HISTORY OF supra bubic cath Current Outpatient Medications Medication Sig Estradiol (YUVAFEM) 10 mcg vaginal tablet Use vaginally once nightly for two weeks and then twice weekly until directed to stop the medication by your doctor. fluconazole (DIFLUCAN) 100 mg tablet Take 1 tablet by mouth one time a week. Clobetasol Propionate 0.05 % lotn Apply to affected area as needed. METOPROLOL TARTRATE ORAL Take 25 mg by mouth twice daily. potassium chloride in water 20 mEq/100 mL IVPB Inject 20 mEq intravenously one time only. nystatin-triamcinolone (MYCOLOG II) cream Apply 1 application to affected area once daily as needed. triamcinolone acetonide (KENALOG) 0.1 % ointment Apply 1 application to affected area once daily as needed. nystatin (MYCOSTATIN) powder APPLY TO AFFECTED AREA. Cholestyramine, Bulk, powd Take 0.5 scoops by mouth once daily. ascorbic acid, vitamin C, (VITAMIN C) 500 mg tablet Take 500 mg by mouth twice daily. L. RHAMNOSUS GG/INULIN (CULTURELLE PROBIOTICS ORAL) Take 1 capsule by mouth every other day. baclofen (LIORESAL) 20 mg tablet Take one tablet in AM AND two tablets in PM. Vitamin E 400 unit tab Take 1 tablet by mouth once daily. 180mg water for irrigation IRRIGATION Normal Saline 1000cc bottle to be used one-two times daily or as needed to irrigate catheter. MULTI-VITAMIN ORAL Take 1 tablet by mouth once daily. Cholecalciferol, Vitamin D3, 2,000 unit cap Take 1 tablet by mouth once daily. Miscellaneous Medical Supply (BARD CATHETER STRAP) Misc Misc Use as directed with bag for suprapubic catheter. COMPOUNDED PRESCRIPTION by route. Urinary night bag, use as directed with suprapubic catheter. Urinary Bag (URINARY LEG BAG) Misc Misc Use as directed with suprapubic catheter. nitrofurantoin macrocrystal(MACRODANTIN 50 MG CAP) Take one(1) tablet once daily. OXYBUTYNIN CHLORIDE 5 MG TAB Taking 1 tablet twice daily. cranberry extract(CRANBERRY 250 MG TAB) Take 200 mg by mouth once daily. CALCIUM 600 600 MG TAB Take one(1) tablet two(2) times daily. No current facility-administered medications for this visit. ALLERGIES: Clindamycin, Eggs [Other], Flagyl [Metronidazole], Neosporin [Uawqvpyj-Xibhlqcvnn-Hsavhlear], Sour Cream [Other], Sulfa (Sulfonamide Antibiotics), and Zofran [Ondansetron Hcl] PERSONAL HISTORY: Social History Tobacco Use Smoking status: Never Smokeless tobacco: Never Vaping Use Vaping Use: Never used Substance Use Topics Alcohol use: No Drug use: No FAMILY HISTORY Problem Relation Age of Onset Breast Cancer Mother Breast,dx at 60, Coronary Artery Disease Father Breast Cancer Sister dx at age 40, doing well other (Primary lateral sclerosis [Other]) Brother His brother also is followed by Dr. Hannon. Previously was thought to have MS. other (Kidney Disease [Other]) Brother The review of systems data was entered by the nurse and reviewed by ks Nursing Notes: Rama Lerma RN 11/16/2023 1:07 PM Signed REVIEW OF SYSTEMS: General: The patient denies fatigue, denies weight loss, denies weight gain, NOTES feeling hot, and denies feelings of cold. Eyes: The patient denies glaucoma, denies eye injury/surgery, wears glasses or contacts. Ear/Nose/Thr (more content not included)... [facility] 11-09-2023 Note HNO ID: [id number] Author: Viridiana Armendariz APRN.CNM Service: ? Author Type: Watch Inspector Final Movement Type: Progress Notes Filed: 11/17/2023 9:15 AM Note Text: Nay Purcell is a 68 year old female who presents for problem visit for vaginal discharge HPI: Presents today for complaint of vaginal discharge. Has been chronic and frustrated. Has suprapubic catheter. Itching is improved internally after vaginal estrogen. Itching is on outside/vulva. Tearful as she also has bedsores. Present today with . Doug lift to assist patient onto table. 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 Comments: Sexual Activity: Yes; Male; vasectomy Contraception: No contraception data on record PAST MEDICAL HISTORY Diagnosis Date Breast cancer, right breast ([facility]) 09/29/2011 IDCA, T2N2, ER+NJ+HER2- Cellulitis Multiple sclerosis ([facility]) 11/29/1991 Other psoriasis and similar disorders Psoriasis PMH - PAST MEDICAL HISTORY OF 12/30/1999 FIBROCYSTIC BREAST DISEASE Postmenopausal atrophic vaginitis PAST SURGICAL HISTORY Procedure Laterality Date BIOPSY BREAST OPEN INCISIONAL Bx of breast, incisional BX BREAST PERC NEED W/GUID 08/05/11 U/S needle core UOQ right breast CHOLECYSTECTOMY 05/2013 Cholecystectomy COLONOSCOPY 08/15/2013 MAST MODF RAD W/AX LYMPH NOD W/WO PECT/MELANIE MIN 10-06-2011 right PAST SURGICAL HISTORY OF supra bubic cath FAMILY HISTORY Problem Relation Age of Onset Breast Cancer Mother Breast,dx at 60, Coronary Artery Disease Father Breast Cancer Sister dx at age 40, doing well other (Primary lateral sclerosis [Other]) Brother His brother also is followed by Dr. Hannon. Previously was thought to have MS. other (Kidney Disease [Other]) Brother Social History Tobacco Use Smoking status: Never Smokeless tobacco: Never Vaping Use Vaping Use: Never used Substance Use Topics Alcohol use: No Drug use: No Current Outpatient Medications Medication Sig Estradiol (YUVAFEM) 10 mcg vaginal tablet Use vaginally once nightly for two weeks and then twice weekly until directed to stop the medication by your doctor. Clobetasol Propionate 0.05 % lotn Apply to affected area as needed. METOPROLOL TARTRATE ORAL Take 25 mg by mouth twice daily. potassium chloride in water 20 mEq/100 mL IVPB Inject 20 mEq intravenously one time only. nystatin-triamcinolone (MYCOLOG II) cream Apply 1 application to affected area once daily as needed. triamcinolone acetonide (KENALOG) 0.1 % ointment Apply 1 application to affected area once daily as needed. nystatin (MYCOSTATIN) powder APPLY TO AFFECTED AREA. Cholestyramine, Bulk, powd Take 0.5 scoops by mouth once daily. ascorbic acid, vitamin C, (VITAMIN C) 500 mg tablet Take 500 mg by mouth twice daily. L. RHAMNOSUS GG/INULIN (CULTURELLE PROBIOTICS ORAL) Take 1 capsule by mouth every other day. baclofen (LIORESAL) 20 mg tablet Take one tablet in AM AND two tablets in PM. Vitamin E 400 unit tab Take 1 tablet by mouth once daily. 180mg water for irrigation IRRIGATION Normal Saline 1000cc bottle to be used one-two times daily or as needed to irrigate catheter. MULTI-VITAMIN ORAL Take 1 tablet by mouth once daily. Cholecalciferol, Vitamin D3, 2,000 unit cap Take 1 tablet by mouth once daily. Miscellaneous Medical Supply (BARD CATHETER STRAP) [facility] Use as directed with bag for suprapubic catheter. COMPOUNDED PRESCRIPTION by route. Urinary night bag, use as directed with suprapubic catheter. Urinary Bag (URINARY LEG BAG) [facility] Use as directed with suprapubic catheter. nitrofurantoin macrocrystal(MACRODANTIN 50 MG CAP) Take one(1) tablet once daily. OXYBUTYNIN CHLORIDE 5 MG TAB Taking 1 tablet twice daily. cranberry extract(CRANBERRY 250 MG TAB) Take 200 mg by mouth once daily. CALCIUM 600 600 MG TAB Take one(1) tablet two(2) times daily. fluconazole (DIFLUCAN) 100 mg tablet Take 1 tablet by mouth one time a week. No current facility-administered medications for this visit. Allergies As of Date: 11/09/2023 Allergen Noted Reaction CLINDAMYCIN 09/25/2022 Hives EGGS [OTHER] 04/23/2006 FLAGYL [METRONIDAZOLE] 09/25/2022 Hives NEOSPORIN [NUDXQTUG-VCKLUEBFLY-IX* 1 Rash SOUR CREAM [OTHER] 04/23/2006 SULFA (SULFONAMIDE ANTIBIOTICS) 08/20/2015 Hives and Itching ZOFRAN [ONDANSETRON HCL] 06/24/2012 Other: See Comments Fully Assessed 11/09/2023 REVIEW OF SYSTEMS Abdomen: No bloating, early satiety, indigestion, or increased flatulence. No abdominal pain, nausea, vomiting, diarrhea, or constipation. Bladder: No dysuria, gross hematuria, urinary frequency, urinary urgency, or incontinence. Breast: No (more content not included)... [facility] 10-01-2023 Miscellaneous Notes 2 techs noted in appt notes Patient informed all call backs are scheduled by [facility]. Patient given number and transferred . Once scheduled, will note in appt notes - the need of 2 techs. Keep encounter open until appointment is scheduled. Pt. Notified additional views are recommended. Please schedule L dx mamm/US soon. Will need two techs. Orders in. Thank you. Yessy Huizar LPN Please inform pt. that the radiologist would like additional images of L breast. Please schedule L dx mamm/US soon. Will need two techs. Orders in. Thank you. Miranda Rivers APRN.BRAND ANALYST documented in this encounter [facility] 10-01-2023 Miscellaneous Notes October 01, 2023 PID: [id number] Nay Purcell [id number] [facility] [address] [place] [address] Dear Ms. Purcell, Your recent breast imaging exam on 09/30/2023 showed a possible finding that requires additional imaging studies for a complete evaluation. Most such findings are probably benign (not cancer). Your mammogram demonstrates that you have dense breast tissue, which could hide abnormalities. Dense breast tissue, in and of itself, is a relatively common condition. Therefore, this information is not provided to cause undue concern; rather, it is to raise your awareness and promote discussion with your health care provider regarding the presence of dense breast tissue in addition to other risk factors. If you have a healthcare provider who ordered/prescribed your screening mammogram: Please call [phone] or [phone]: [phone] to schedule an appointment for your additional imaging (if you have not already done so). If you DO NOT have a healthcare provider (ie you did not have an order/prescription for your screening mammogram): Please call to schedule an appointment for your additional imaging (if you have not already done so). You must have an order/prescription from your physician when calling to schedule your appointment. If your order/prescription is not electronic, you must bring the hard copy with you on the day of your exam to avoid delays. Your imaging studies and reports are kept on file at [facility] as part of your permanent medical record, and are available for your continuing care. Thank you for allowing us to help in meeting your health care needs. Sincerely, Dr. Gamble Interpreting Radiologist [facility] (Additional imaging) documented in this encounter [facility] 09-30-2023 Note HNO ID: [id number] Author: Miranda Rivers APRN.BRAND ANALYST Service: ? Author Type: Nurse Practitioner Type: Progress Notes Filed: 09/30/2023 12:25 PM Note Text: Chief Complaint Patient presents with: Yearly check Breast Cancer HPI: Nay Purcell is a 68 year old female who presents here today for follow up breast cancer. Per Dr. Alva's previous note: H/o found to have a right breast mass on exam. Underwent imaging: Multiple irregular solid masses in the right breast superior lateral quadrant posterior depth are consistent with the known carcinoma and are a known biopsy positive for malignancy. The known cancer extends from 8 to 11 o'clock. Negative right axillary ultrasound. The 1 cm x 1 cm x 1 cm oval mass in the left breast at 3 o'clock middle depth is at an intermediate suspicion for malignancy. An ultrasound guided biopsy is recommended. The 0.7 cm x 0.5 cm x 0.7 cm mass in the left breast at 3 o'clock posterior depth is at an intermediate suspicion for malignancy. An ultrasound guided biopsy is recommended. Negative left axillary ultrasound. The 1.4 cm lobulated cyst in the left breast at 2 o'clock posterior depth is consistent with a simple cyst and is benign. Biopsies of left breast--. Left breast, 3 o'clock, 7 cm from nipple, biopsy (A) - Fibrotic cyst wall with fat necrosis and microcalcifications. 2. Left breast, 3 o'clock, 5 cm from nipple, biopsy (B) - Minute fragments of benign cyst wall. Underwent right breast simple mastectomy, right sentinel lymph node biopsy with right axillary lymph node dissection 10/06/11. Right axillary sentinel lymph nodes, biopsy (A) - Metastatic carcinoma involving two of two lymph nodes (2/2); largest metastasis measures 0.4 cm in greatest dimension. 2. Right breast, mastectomy (B) - Multifocal invasive ductal carcinoma, Jung-Grewal grade II (see comment). - Ductal carcinoma in situ, intermediate grade, cribriform and micropapillary types with microcalcifications. - Atypical ductal hyperplasia arising in a background of columnar cell change with flat epithelial atypia. - Atypical lobular hyperplasia. - Fibrocystic change including usual ductal hyperplasia and apocrine metaplasia. - Microcalcifications present with ductal carcinoma in situ, atypical ductal hyperplasia, columnar cell change, and fibrocystic change. - Biopsy site reparative changes. 3. Right axillary lymph nodes, axillary dissection (C) - Metastatic carcinoma involving three of ten lymph nodes (3/10); largest metastasis measures 0.35 cm in greatest dimension; extracapsular extension is identified. 4. Lateral skin, excision (D) - Unremarkable segment of skin. 5. Medial skin, excision (E) - Unremarkable segment of skin. COMMENT Specimen Laterality: Right Specimen: Total breast (including nipple and skin) Procedure: Modified radical mastectomy Specimen size: Not applicable for this specimen Specimen Integrity: Single intact specimen (margins can be evaluated) Lymph Node Sampling: Thatcher lymph nodes and axillary dissection Tumor Size: Multiple discontinuous foci of invasive carcinoma and ductal carcinoma in situ involve an area measuring 7 cm in greatest dimension, the largest focus of invasive carcinoma measures 2.1 cm in greatest contiguous dimension Tumor Focality: Multiple foci of invasive carcinoma Extent of Tumor: Skin: Invasive carcinoma is present in the dermis of the nipple Nipple: Invasive carcinoma is present in the base and the dermis of the nipple Chest wall: Skeletal muscle is not present in the specimen Margins: Negative Histologic Type of Invasive Carcinoma: Ductal Histologic Grade: Glandular (Acinar)/Tubular Differentiation: 2 Nuclear Grade: 2 Mitotic Count: 2 Overall Jung Grewal Grade: II Lymph-Vascular Invasion: Present Ductal Carcinoma In Situ (DCIS): DCIS is present Type: Cribriform and micropapillary Nuclear grade: 2 Necrosis: Not identified Lobular Carcinoma In Situ (LCIS): Not identified Lymph Nodes: (required only if lymph nodes are present in the specimen) Number of sentinel lymph nodes examined: 2 Total number of lymph nodes examined (sentinel and nonsentinel): 12 Number of lymph nodes with macrometastases (>0.2 cm): 3 Number of lymph nodes with micrometastases (>0.2 mm to 0.2 cm and/or >200cells):2 Number of lymph nodes with isolated tumor cells (less than or equal to 0.2 mm and less than or equal to 200 cells): 0 Size of largest metastatic deposit (if present): 0.4 cm; extracapsular extension is identified Pathologic Staging (AJCC 7th Edition): pT2(m) pN2a pM unknown Estrogen and Progesterone Receptor: Will be performed and the results reported separately. HER2/raphael: Will be performed and the results reported separately. Other: The second focus of metastatic carcinoma present within the right axillary sentinel lymph nodes (part A) is not present on the frozen sect (more content not included)... [facility] 09-30-2023 Note HNO ID: [id number] Author: Oksana Johnston Farmeron Service: ? Author Type: Medical Appointment Clerk Type: Progress Notes Filed: 09/30/2023 11:15 AM Note Text: Radiology Service Progress Note PATIENT NAME: Nay Purcell DATE OF SERVICE: September 30, 2023 TIME: 11:13 AM PATIENT IDENTITY VERIFICATION COMPLETED USING TWO (2) IDENTIFIERS: Name and Date of confirmed by patient verbally. FALL SCREENING: Has the patient had 2 falls in the last year or 1 fall with injury or currently using an Ambulatory Assistive Device (Walker, Cane, Wheelchair, Crutches, etc.)? Yes, Patient High Risk for Falls Motorized wheelchair What interventions were put in place to prevent falls during this visit? Increased Observations by Caregivers PATIENT GENDER DATA: Female. status: : No status: NO. PATIENT RELEVANT IMPLANT DATA REVIEWED: Not Applicable RADIOLOGY DEPARTMENT: Mammography PERIPHERAL IV DATA: Not applicable SIGNED BY: Oksana Johnston Farmeron September 30, 2023 11:13 AM [facility] 09-23-2023 Miscellaneous Notes Pt notified and will check with her pharmacy later today. Elaine Duncan LPN RX SENT. Yoselin Escobedo APRN.CNM Patient called in again frustrated this has not been to her local pharmacy yet (it was previously sent to [facility]). Asking for provider in office today to send it in for NATHANIEL. Can you please file? Bridgett Mejia RN Patient called in today asking about prescription below. Patient needs to go to local pharmacy not [facility]. This PSS will change pharmacy on file to reflect this. Patient notified. Patient needs prescription sent to [facility] in [place]. ----- Message from Viridiana Armendariz APRN.CNM sent at 09/20/2023 4:46 PM EDT ----- Please call patient and let her know that all results are negative. I would like to try treating with vaginal estrogen and see if this helps. Will need to take vaginally in the vagina once daily for two weeks then twice weekly. Follow up in 4-8 weeks. Needs 45 minute appointment and doug lift for visit. Thanks, Viridiana Armendariz APRN.CNM documented in this encounter [facility] 09-14-2023 Note HNO ID: [id number] Author: Viridiana Armendariz APRN.MELQUIADES Service: ? Author Type: Watch Inspector Final Movement Type: Progress Notes Filed: 09/14/2023 10:37 AM Note Text: Nay Purcell is a 68 year old female who presents for problem visit for vaginal discharge. HPI: Patient presents today with her . Immobile in a wheelchair due to MS. Has a colostomy bag and suprapubic catheter. Complaint today of several years of vaginal pruritis, burning and discharge. In the last few months though discharge increased and uncomfortable. 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 Comments: Sexual Activity: Yes; Male; vasectomy Contraception: No contraception data on record PAST MEDICAL HISTORY Diagnosis Date Breast cancer, right breast (HCC) 09/2011 IDCA, T2N2, ER+NJ+HER2- Cellulitis Multiple sclerosis (HCC) 1991 Other psoriasis and similar disorders Psoriasis PMH - PAST MEDICAL HISTORY OF 12/1999 FIBROCYSTIC BREAST DISEASE PAST SURGICAL HISTORY Procedure Laterality Date BIOPSY BREAST OPEN INCISIONAL Bx of breast, incisional BX BREAST PERC NEED W/GUID 08/05/11 U/S needle core UOQ right breast CHOLECYSTECTOMY 05/2013 Cholecystectomy COLONOSCOPY 08/15/2013 MAST MODF RAD W/AX LYMPH NOD W/WO PECT/MELANIE MIN 10-06-2011 right PAST SURGICAL HISTORY OF supra bubic cath FAMILY HISTORY Problem Relation Age of Onset Breast Cancer Mother Breast,dx at 60, Coronary Artery Disease Father Breast Cancer Sister dx at age 40, doing well other (Primary lateral sclerosis [Other]) Brother His brother also is followed by Dr. Hannon. Previously was thought to have MS. other (Kidney Disease [Other]) Brother Social History Tobacco Use Smoking status: Never Smokeless tobacco: Never Vaping Use Vaping Use: Never used Substance Use Topics Alcohol use: No Drug use: No Current Outpatient Medications Medication Sig fluconazole (DIFLUCAN) 100 mg tablet Take 1 tablet by mouth every afternoon. ELIQUIS 5 mg tab(s) Clobetasol Propionate 0.05 % lotn Apply to affected area as needed. METOPROLOL TARTRATE ORAL Take 25 mg by mouth twice daily. potassium chloride in water 20 mEq/100 mL IVPB Inject 20 mEq intravenously one time only. nystatin-triamcinolone (MYCOLOG II) cream Apply 1 application to affected area once daily as needed. triamcinolone acetonide (KENALOG) 0.1 % ointment Apply 1 application to affected area once daily as needed. nystatin (MYCOSTATIN) powder APPLY TO AFFECTED AREA. Cholestyramine, Bulk, powd Take 0.5 scoops by mouth once daily. ascorbic acid, vitamin C, (VITAMIN C) 500 mg tablet Take 500 mg by mouth twice daily. L. RHAMNOSUS GG/INULIN (CULTURELLE PROBIOTICS ORAL) Take 1 capsule by mouth every other day. baclofen (LIORESAL) 20 mg tablet Take one tablet in AM AND two tablets in PM. Vitamin E 400 unit tab Take 1 tablet by mouth once daily. 180mg water for irrigation IRRIGATION Normal Saline 1000cc bottle to be used one-two times daily or as needed to irrigate catheter. MULTI-VITAMIN ORAL Take 1 tablet by mouth once daily. Cholecalciferol, Vitamin D3, 2,000 unit cap Take 1 tablet by mouth once daily. Miscellaneous Medical Supply (BARD CATHETER STRAP) Mis Misc Use as directed with bag for suprapubic catheter. COMPOUNDED PRESCRIPTION by route. Urinary night bag, use as directed with suprapubic catheter. Urinary Bag (URINARY LEG BAG) Misc Misc Use as directed with suprapubic catheter. nitrofurantoin macrocrystal(MACRODANTIN 50 MG CAP) Take one(1) tablet once daily. OXYBUTYNIN CHLORIDE 5 MG TAB Taking 1 tablet twice daily. cranberry extract(CRANBERRY 250 MG TAB) Take 200 mg by mouth once daily. CALCIUM 600 600 MG TAB Take one(1) tablet two(2) times daily. No current facility-administered medications for this visit. Allergies As of Date: 09/14/2023 Allergen Noted Reaction CLINDAMYCIN 09/25/2022 Hives EGGS [OTHER] 04/23/2006 FLAGYL [METRONIDAZOLE] 09/25/2022 Hives NEOSPORIN [[id number]-RC* 1 Rash SOUR CREAM [OTHER] 04/23/2006 SULFA (SULFONAMIDE ANTIBIOTICS) 08/20/2015 Hives and Itching ZOFRAN [ONDANSETRON HCL] 06/24/2012 Other: See Comments Fully Assessed 09/14/2023 REVIEW OF SYSTEMS Abdomen: No bloating, early satiety, indigestion, or increased flatulence. No abdominal pain, nausea, vomiting, diarrhea, or constipation. Bladder: No dysuria, gross hematuria, urinary frequency, urinary urgency, or incontinence. Breast: No breast lumps, nipple d/c, overlying skin changes, redness or skin retraction. Expanded ROS: N/A Allergies and current medication updated:Yes EXAM: BP 126/76 LMP 10/03/2007 GENERAL: pleasant, femal (more content not included)... [facility] 09-14-2023 History of Present illness Narrative Nay Purcell is a 68 year old female who presents for problem visit for vaginal discharge. HPI: Patient presents today with her . Immobile in a wheelchair due to MS. Has a colostomy bag and suprapubic catheter. Complaint today of several years of vaginal pruritis, burning and discharge. In the last few months though discharge increased and uncomfortable. 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 Comments: Sexual Activity: Yes; Male; vasectomy Contraception: No contraception data on record PAST MEDICAL HISTORY Diagnosis Date Breast cancer, right breast (HCC) 09/2011 IDCA, T2N2, ER+NJ+HER2- Cellulitis Multiple sclerosis (HCC) 1991 Other psoriasis and similar disorders Psoriasis PMH - PAST MEDICAL HISTORY OF 12/1999 FIBROCYSTIC BREAST DISEASE PAST SURGICAL HISTORY Procedure Laterality Date BIOPSY BREAST OPEN INCISIONAL Bx of breast, incisional BX BREAST PERC NEED W/GUID 08/05/11 U/S needle core UOQ right breast CHOLECYSTECTOMY 05/2013 Cholecystectomy COLONOSCOPY 08/15/2013 MAST MODF RAD W/AX LYMPH NOD W/WO PECT/MELANIE MIN 10-06-2011 right PAST SURGICAL HISTORY OF supra bubic cath FAMILY HISTORY Problem Relation Age of Onset Breast Cancer Mother Breast,dx at 60, Coronary Artery Disease Father Breast Cancer Sister dx at age 40, doing well other (Primary lateral sclerosis [Other]) Brother His brother also is followed by Dr. Hannon. Previously was thought to have MS. other (Kidney Disease [Other]) Brother Social History Tobacco Use Smoking status: Never Smokeless tobacco: Never Vaping Use Vaping Use: Never used Substance Use Topics Alcohol use: No Drug use: No Current Outpatient Medications Medication Sig fluconazole (DIFLUCAN) 100 mg tablet Take 1 tablet by mouth every afternoon. ELIQUIS 5 mg tab(s) Clobetasol Propionate 0.05 % lotn Apply to affected area as needed. METOPROLOL TARTRATE ORAL Take 25 mg by mouth twice daily. potassium chloride in water 20 mEq/100 mL IVPB Inject 20 mEq intravenously one time only. nystatin-triamcinolone (MYCOLOG II) cream Apply 1 application to affected area once daily as needed. triamcinolone acetonide (KENALOG) 0.1 % ointment Apply 1 application to affected area once daily as needed. nystatin (MYCOSTATIN) powder APPLY TO AFFECTED AREA. Cholestyramine, Bulk, powd Take 0.5 scoops by mouth once daily. ascorbic acid, vitamin C, (VITAMIN C) 500 mg tablet Take 500 mg by mouth twice daily. L. RHAMNOSUS GG/INULIN (CULTURELLE PROBIOTICS ORAL) Take 1 capsule by mouth every other day. baclofen (LIORESAL) 20 mg tablet Take one tablet in AM & two tablets in PM. Vitamin E 400 unit tab Take 1 tablet by mouth once daily. 180mg water for irrigation IRRIGATION Normal Saline 1000cc bottle to be used one-two times daily or as needed to irrigate catheter. MULTI-VITAMIN ORAL Take 1 tablet by mouth once daily. Cholecalciferol, Vitamin D3, 2,000 unit cap Take 1 tablet by mouth once daily. Miscellaneous Medical Supply (BARD CATHETER STRAP) [facility] Misc Use as directed with bag for suprapubic catheter. COMPOUNDED PRESCRIPTION by route. Urinary night bag, use as directed with suprapubic catheter. Urinary Bag (URINARY LEG BAG) Mis Misc Use as directed with suprapubic catheter. nitrofurantoin macrocrystal(MACRODANTIN 50 MG CAP) Take one(1) tablet once daily. OXYBUTYNIN CHLORIDE 5 MG TAB Taking 1 tablet twice daily. cranberry extract(CRANBERRY 250 MG TAB) Take 200 mg by mouth once daily. CALCIUM 600 600 MG TAB Take one(1) tablet two(2) times daily. No current facility-administered medications for this visit. Allergies As of Date: 09/14/2023 Allergen Noted Reaction CLINDAMYCIN 09/25/2022 Hives EGGS [OTHER] 04/23/2006 FLAGYL [METRONIDAZOLE] 09/25/2022 Hives NEOSPORIN [CALZNYQN-[id number]-VX* 1 Rash SOUR CREAM [OTHER] 04/23/2006 SULFA (SULFONAMIDE ANTIBIOTICS) 08/20/2015 Hives and Itching ZOFRAN [ONDANSETRON HCL] 06/24/2012 Other: See Comments Fully Assessed 09/14/2023 REVIEW OF SYSTEMS Abdomen: No bloating, early satiety, indigestion, or increased flatulence. No abdominal pain, nausea, vomiting, diarrhea, or constipation. Bladder: No dysuria, gross hematuria, urinary frequency, urinary urgency, or incontinence. Breast: No breast lumps, nipple d/c, overlying skin changes, redness or skin retraction. Expanded ROS: N/A Allergies and current medication updated:Yes EXAM: BP 126/76 LMP 10/03/2007 GENERAL: pleasant, female in no apparent distress HEENT: Normocephalic and atraumatic NECK: Supple PELVIC: external genitalia normal, normal Bartholin's glands, urethra, [place]'s glands, no vulvar lesions, no cervical lesions, good vaginal support, normal appearing perineal body and perianal region, atrophic changes Moderate amount of yellow/white discharge, slight odor. No vaginal bleeding, lacerations. Groin with irritation and redness bilaterally. BIMANUAL: deferred NEURO: alert and oriented x3,exam grossly non-focal EXTREMITIES: normal ASSESSMENT AND PLAN: 1. Vaginal odor - ICD9: 625.8, ICD10: N89.8 (primary diagnosis) - PAUL/TRICHOMONAS NAAT - BACTERIAL VAGINOSIS NAAT - UROGENITAL UREAPLASMA AND MYCOPLASMA SPECIES BY PCR, FOR GENITAL, RECTAL, URINE SAMPLES 2. Vaginal discharge - ICD9: 623.5, ICD10: N89.8 - PAUL/TRICHOMONAS NAAT - BACTERIAL VAGINOSIS NAAT - UROGENITAL UREAPLASMA AND MYCOPLASMA SPECIES BY PCR, FOR GENITAL, RECTAL, URINE SAMPLES Discussed with patient will test for infection. Reviewed possible treatment for atrophic vaginitis with flagyl if results negative. Can discuss vaginal estrogen therapy as an option also. Reviewed using treatment for groin inflammation and rash as prescribe by primary care provider but can use twice a day for 14-21 days for treatment with flaring. To stop OTC vagisil at this time and will discuss after results. Reviewed with limited mobility, frequent moisture in groin, may be a continuous mercado with frequent treatment. Can always refer to [facility] infectious disease as well for further management if needed. Viridiana Armendariz APRN.CNM documented in this encounter [facility] 09-13-2023 Miscellaneous Notes Nurse Amy called and notified of below. Nurse is going to call patient and have her call the office and confirm appointment time works for her. Appointment scheduled. Desiree Anderson RN See needs to be seen NATHANIEL has a 8 am opening tomorrow. Bernarda Almanza APRN.CNP Amy hernandez Nurse from [facility] calling stated that pt is now having brown bloody vaginal discharge with foul odor. Nurse reports that this has been approx 1 week and is a moderate amount. Pt has suprapubic cath. There was blood in the bag about 10d, her pcp put pt on Cipro for UTI and hematuria improved. She was also given Diflucan. Nurse also reports that pt has yeast under bilateral breast and axilla. Pt has orders for nystatin powder and nystatin cream. Care givers are putting wash clothes under breast. This also has a foul odor present. Pt just finished diflucan 1 tablet for 10days. Please advise how to proceed. Nurse will contact pt and inquire as to which local pharmacy pt uses for short term prescriptions. Amy can be reached at [phone]. Elaine Duncan LPN documented in this encounter [facility] 08-27-2023 Note HNO ID: [id number] Author: Bernarda Almanza APRN.BRAND ANALYST Service: ? Author Type: Nurse Practitioner Type: Progress Notes Filed: 08/27/2023 12:02 PM Note Text: Nay Purcell is a 68 year old female who presents for vaginal pruritis, burning, and discharge for several month(s). Vaginal discharge: scant amount, moderate amount, thin, white, and yellow. Itching: Some Dyspareunia: N/A Fever/chills: No Abdominal pain: No Bladder: suprapubic cathter Are you currently taking any medications to treat vaginitis: had been treated with Diflucan Do you use feminine sprays, douches or deodorants: No Past medical, surgical, social history, medications and allergies reviewed and updated. OBJECTIVE: LMP 10/03/2007 GENERAL: Well developed, well nourished in no apparent distress PELVIC: external genitalia normal, normal Bartholin's glands, urethra, [place]'s glands, normal appearing perineal body and perianal region, moderate amount of clear/white discharge. Labia red and the right is swollen. Pea size superficial sore in the crease of posterior fold of right labia ASSESSMENT/PLAN: 1. Vaginal discharge - ICD9: 623.5, ICD10: N89.8 Will notify patient of test results. 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 Bernarda Almanza APRN.CNP Medical Decision Making: Problems: Moderate: New problem with uncertain prognosis Data: Unique test(s) ordered: 2 Risk: Low: Low risk from testing/treatment Medical Decision Making Level: 3 - Low [facility] 09-29-2022 Miscellaneous Notes Spoke with patient and scheduled. Erica Ro Please schedule L mammogram/OV same day in one year. Thank you. Miranda Rivers APRN.CNP documented in this encounter [facility] 09-28-2022 Miscellaneous Notes September 28, 2022 PID: [id number] Nay Purcell [address] [place] [address] Dear Ms. Purcell, We are pleased to inform you that the results of your recent breast imaging exam on 09/25/2022 are normal. Your mammogram demonstrates that you have dense breast tissue, which could hide abnormalities. Dense breast tissue, in and of itself, is a relatively common condition. Therefore, this information is not provided to cause undue concern; rather, it is to raise your awareness and promote discussion with your health care provider regarding the presence of dense breast tissue in addition to other risk factors. Early detection of cancer is very important. We also understand recommendations regarding breast cancer screening are controversial. Please discuss with your primary care provider which strategy is best for you and whether a mammogram is right for you. Your imaging studies and report will be kept on file at [facility] as part of your permanent medical record and are available for your continuing care. Thank you for allowing us to help in meeting your health care needs. Sincerely, Dr. Gross Interpreting Radiologist [facility] (Normal over 40) documented in this encounter [facility] 09-25-2022 History of Present illness Narrative Chief Complaint Patient presents with: Established Patient HPI: Nay Purcell is a 67 year old female who presents here today for follow up breast cancer. Per Dr. Alva's previous note: H/o found to have a right breast mass on exam. Underwent imaging: Multiple irregular solid masses in the right breast superior lateral quadrant posterior depth are consistent with the known carcinoma and are a known biopsy positive for malignancy. The known cancer extends from 8 to 11 o'clock. Negative right axillary ultrasound. The 1 cm x 1 cm x 1 cm oval mass in the left breast at 3 o'clock middle depth is at an intermediate suspicion for malignancy. An ultrasound guided biopsy is recommended. The 0.7 cm x 0.5 cm x 0.7 cm mass in the left breast at 3 o'clock posterior depth is at an intermediate suspicion for malignancy. An ultrasound guided biopsy is recommended. Negative left axillary ultrasound. The 1.4 cm lobulated cyst in the left breast at 2 o'clock posterior depth is consistent with a simple cyst and is benign. Biopsies of left breast--. Left breast, 3 o'clock, 7 cm from nipple, biopsy (A) - Fibrotic cyst wall with fat necrosis and microcalcifications. 2. Left breast, 3 o'clock, 5 cm from nipple, biopsy (B) - Minute fragments of benign cyst wall. Underwent right breast simple mastectomy, right sentinel lymph node biopsy with right axillary lymph node dissection 10/06/11. Right axillary sentinel lymph nodes, biopsy (A) - Metastatic carcinoma involving two of two lymph nodes (2/2); largest metastasis measures 0.4 cm in greatest dimension. 2. Right breast, mastectomy (B) - Multifocal invasive ductal carcinoma, Jung-Grewal grade II (see comment). - Ductal carcinoma in situ, intermediate grade, cribriform and micropapillary types with microcalcifications. - Atypical ductal hyperplasia arising in a background of columnar cell change with flat epithelial atypia. - Atypical lobular hyperplasia. - Fibrocystic change including usual ductal hyperplasia and apocrine metaplasia. - Microcalcifications present with ductal carcinoma in situ, atypical ductal hyperplasia, columnar cell change, and fibrocystic change. - Biopsy site reparative changes. 3. Right axillary lymph nodes, axillary dissection (C) - Metastatic carcinoma involving three of ten lymph nodes (3/10); largest metastasis measures 0.35 cm in greatest dimension; extracapsular extension is identified. 4. Lateral skin, excision (D) - Unremarkable segment of skin. 5. Medial skin, excision (E) - Unremarkable segment of skin. COMMENT Specimen Laterality: Right Specimen: Total breast (including nipple and skin) Procedure: Modified radical mastectomy Specimen size: Not applicable for this specimen Specimen Integrity: Single intact specimen (margins can be evaluated) Lymph Node Sampling: Thatcher lymph nodes and axillary dissection Tumor Size: Multiple discontinuous foci of invasive carcinoma and ductal carcinoma in situ involve an area measuring 7 cm in greatest dimension, the largest focus of invasive carcinoma measures 2.1 cm in greatest contiguous dimension Tumor Focality: Multiple foci of invasive carcinoma Extent of Tumor: Skin: Invasive carcinoma is present in the dermis of the nipple Nipple: Invasive carcinoma is present in the base and the dermis of the nipple Chest wall: Skeletal muscle is not present in the specimen Margins: Negative Histologic Type of Invasive Carcinoma: Ductal Histologic Grade: Glandular (Acinar)/Tubular Differentiation: 2 Nuclear Grade: 2 Mitotic Count: 2 Overall Jung Grewal Grade: II Lymph-Vascular Invasion: Present Ductal Carcinoma In Situ (DCIS): DCIS is present Type: Cribriform and micropapillary Nuclear grade: 2 Necrosis: Not identified Lobular Carcinoma In Situ (LCIS): Not identified Lymph Nodes: (required only if lymph nodes are present in the specimen) Number of sentinel lymph nodes examined: 2 Total number of lymph nodes examined (sentinel and nonsentinel): 12 Number of lymph nodes with macrometastases (>0.2 cm): 3 Number of lymph nodes with micrometastases (>0.2 mm to 0.2 cm and/or >200cells):2 Number of lymph nodes with isolated tumor cells (less than or equal to 0.2 mm and less than or equal to 200 cells): 0 Size of largest metastatic deposit (if present): 0.4 cm; extracapsular extension is identified Pathologic Staging (AJCC 7th Edition): pT2(m) pN2a pM unknown Estrogen and Progesterone Receptor: Will be performed and the results reported separately. HER2/raphael: Will be performed and the results reported separately. Other: The second focus of metastatic carcinoma present within the right axillary sentinel lymph nodes (part A) is not present on the frozen section slide and is only present on permanent sections. Jackie Boyd D.O. (Electronic Signature) _ SPECIMEN SUBMITTED A: RIGHT AXILLARY SENTINEL LYMPH NODES B: RIGHT MASTECTOMY C: RIGHT AXILLARY NODE DISSECTION D: LATERAL SKIN E: MEDIAL SKIN ADDITIONAL PROCEDURE(S) FISH for HER2 Date Ordered: 10/09/2011 Date Reported: 10/12/2011 Procedure Results and Interpretation HER2 Gene Amplification: NOT AMPLIFIED HER2 Gene Amplification was evaluated on paraffin-embedded block B6 by interphase fluorescence in situ hybridization (FISH), using a dual label probe set for the HER2 locus and the centromeric region of chromosome 17 ([employer]; [employer], [place]). The Molecular Genetic Pathology Laboratory of the [facility] has validated modifications of the PathVysion kit used for the testing including the use of Target Retrieval Solution and proteinase K ([employer]; [place]) for cell conditioning, and modified probe/target denaturation and hybridization conditions for the assay. When necessary, a test with a probe for the [id number] locus (laboratory developed), and using a similar protocol is also performed. The in situ hybridization analysis was performed for and correlated with preselected areas of invasive carcinoma. Result: HER2 gene amplification is absent; the average copy number is 2.1. The HER2/Chromosome 17 ratio is 1.0 (reference range is 0.8 - 1.7). The HER2 assay was developed, validated, and reported in accordance with guidelines published by the [place] Society of Clinical Oncology and the College of [place] [employer]ologists (J. Clin. Oncol. 25: 118-145, 2007). AYAN/CHE/rene 10/12/2011 Procedure Pathologist: Ranulfo Ortiz M.D. (Electronic Signature) ESTROGEN/PROGESTERONE RECEPTOR (ER/NJ) ANALYSIS Date Ordered: 10/09/2011 Date Reported: 10/14/2011 Procedure Results and Interpretation Estrogen and Progesterone Receptor Immunoperoxidase Assay Estrogen receptor: Positive (90%) Stain intensity: Moderate Progesterone receptor: Positive (80%) Stain intensity: Moderate to strong Staining of greater than or equal to 1% of the tumor cells is considered positive. Tissue analyzed: Invasive carcinoma Block number: B6 Internal controls: Appropriately staining External controls: Appropriately staining Fixation: Formalin- fixed paraffin embedded tissue Antibodies: Estrogen receptor- SP1 clone and progesterone receptor - 1E2 clone, [employer], [place], [place]. These tests were performed and reported according to the Guidelines for Immunohistochemical Testing of Estrogen and Progesterone receptors in Breast Cancer, Arch Pathol Lab Med. 2010;134:E1-E16. Estrogen and progesterone receptor results are valid if tissue was processed according to ASCO/CAP guidelines. Diagnosed with MS early 90s. Had two doses of epirubicin about 6 years ago and didn't tolerate well--had diarrhea, but did not require hospitalization. Had been on therapy with Betaseron. Received AC. Tolerated first 2 cycles well, but had significant symptoms of diarrhea and mucositis following cycle 3. That cycle was also complicated by cystitis. Received 4th cycle. Previous therapy:arimidex. Began 10/2012. Completed 5 years of therapy. Previous therapy:femara Changed to femara after completing 5 years of arimidex. Pt. overdue for visit. Pt. last seen 2018. She had her mammogram prior to visit today. Last mammogram 09/05/19. Since last seen she has had 3 flap repairs, colostomy, port placed. Current receiving IV ATB's for osteomyelitis. Appetite: Good. Energy level: My normal. I'm in bed all of the time now. Denies fevers or recent illness. Resp:denies cough or sob Cardiac:denies chest pain/palpitations GI:denies abd pain, n/v, ostomy-functioning well :supra pubic catheter-functioning well Extrem:denies pain to joints/bone/back-she has had 3 flap repairs-will have pain to flap site Endo:denies hot flashes Neuro:MS stable Skin:denies rashes/lesions Heme:denies bleeding The ROS is otherwise negative. Past medical history, appointments, medications, allergies reviewed. No changes. EXAM: BP 120/81 Pulse 84 Temp 36.5 C (97.7 F) LMP 10/03/2007 SpO2 98% APPEARANCE Well appearing, alert, in no acute distress, well-hydrated, well nourished. HEART RRR with normal S1 and S2, no murmurs LUNG clear to auscultation BREAST FEMALE R mastectomy scar, no nodule, L no mass/nodule LYMPH NODES No cervical lymphadenopathy, No supraclavicular lymphadenopathy, and No axillary lymphadenopathy. ABDOMEN bowel sounds normoactive, soft, non-tender, non-distended, without organomegaly or palpable masses, no tenderness to palpation EXTREMITIES chronic BLE edema, compression hose in place NEURO Awake, alert and oriented x 3, uses motorized w/c, and No involuntary motions. SKIN Skin color, texture, turgor normal, no suspicious rashes or lesions RADIOLOGY: L mammogram 09/25/22: Pending ASSESSMENT/PLAN: 1. Personal history of breast cancer - ICD9: V10.3, ICD10: Z85.3 pT2(m) pN2a (5 of 14 LNs) MX ER/NJ (90/80%) HER2 nonamplified right sided invasive ductal carcinoma of the breast s/p right breast simple mastectomy, right sentinel lymph node biopsy with right axillary lymph node dissection 10/06/11. Had several high risk features including LVI and significant number of LNs. - No concerning findings on exam. - Tolerated arimidex/femara well overall. Completed almost 10 years of therapy. - L mammogram pending. - Follow up in one year-pending today's mammogram. - Pt. aware to call office with any questions/concerns. The patient indicates understanding of these issues and agrees with the plan. All documentation from previous visit of 09/05/19-Dr. Alva/myself was copied and pasted, documentation has been reviewed and edited as necessary for today's visit. Miranda Rivers APRN.ALLAN documented in this encounter [facility] 09-25-2022 History of Present illness Narrative Radiology Service Progress Note PATIENT NAME: Nay Purcell DATE OF SERVICE: September 25, 2022 TIME: 10:55 AM PATIENT IDENTITY VERIFICATION COMPLETED USING TWO (2) IDENTIFIERS: Name and Date of confirmed by patient verbally. FALL SCREENING: Has the patient had 2 falls in the last year or 1 fall with injury or currently using an Ambulatory Assistive Device (Walker, Cane, Wheelchair, Crutches, etc.)? No PATIENT GENDER DATA: Female. status: : No status: NO. PATIENT RELEVANT IMPLANT DATA REVIEWED: Not Applicable RADIOLOGY DEPARTMENT: Mammography PERIPHERAL IV DATA: Not applicable SIGNED BY: RT Savanna(R) September 25, 2022 10:55 AM documented in this encounter [facility] 08-25-2022 Summary of episode note NAY PURCELL :1955 Visit Date:08/25/2022 Your Visit Summary Tests Performed .Auto Differential .Estimated Glomerular Filtration Rate .Neutro Absolute CBC CMP ESR -- Results Pending -- You will be contacted within 72 hours with your results. Your Care Team Attending Physician - MADISYN WHATLEY BA, MD Primary Care Physician - WALI GUIDO DO Vitals Temperature (Oral) 36.6 C Heart Rate 83 Blood Pressure 127/82 What to do next Instructions From Your Doctor You have received the following therapy today: Venofer/ Iron Call your physician if any of the following problems occur: Pain or Redness at injection site Itching Hives Chest Pain Dizziness Difficulty Breathing Stomach or Back Pain Swelling of Hands, Ankles, Feet Scheduled Follow-Up Appointments Appointment Type When Where Contact InformationMRI Hip w/ Contrast Right 09/10/2022 04:30 PM EDT Radiology Medications What How Much When Instructions Unchanged acetaminophen (Tylenol 325 mg oral capsule) 2 cap by mouth Every 6 hours as needed for as needed for fever/PAIN Unchanged acetic acid topical (acetic acid 0.25% irrigation solution) See instructions 60 mLCATH FLUSH qPM Unchanged ascorbic acid (ascorbic acid 1000 mg oral tablet) 1 tab(s) by mouth Two (2) times a day Unchanged baclofen (baclofen 10 mg oral tablet) 1 tab(s) by mouth Every 8 hours as needed for Spasm 1-2 TABS NEEDED Unchanged cholecalciferol (cholecalciferol 25 mcg (1000 intl units) oral capsule) 1 cap by mouth Once a day (in the evening) Unchanged cholestyramine (cholestyramine 4 g/ 4.8 g oral powder for reconstitution) 9 gram(s) by mouth Once a day Unchanged clobetasol topical (clobetasol 0.05% topical foam) 1 application Topical Once a day APPLY THIN LAYER BETWEEN BILATERAL LOWER EXTREMITIES NEEDED Unchanged dimethicone-triamcinolone topical (dimethicone-triamcinolone 5%-0.1% topical kit) daily Topical Unchanged emollients, topical (Aquaphor Healing for Baby topical ointment) 1 application Topical Two (2) times a day as needed for as needed for dry skin 1 CM BID NEEDED Unchanged lactobacillus rhamnosus GG ([facility] 15 B) 80 Milligram by mouth Every day Unchanged letrozole (letrozole 2.5 mg oral tablet) 1 tab(s) by mouth Every day Unchanged magnesium hydroxide (Milk of Magnesia 8% oral suspension) 30 Milliliter by mouth Daily at bedtime as needed for as needed for constipation Unchanged metoprolol (Metoprolol Tartrate 25 mg oral tablet) 1 tab(s) by mouth Two (2) times a day Unchanged Misc Medication (CRANBERRTY EXTRACT 200MG) 1 TAB(S) DAILY by mouth Once a day Unchanged nitrofurantoin (Macrobid) 50 Milligram by mouth Once a day Unchanged nystatin topical (nystatin 100,000 units/ g topical powder) 1 application Topical Two (2) times a day Unchanged oxybutynin (oxybutynin 5 mg oral tablet) 2 tab(s) by mouth Two (2) times a day as needed for as needed for urinary discomfort Unchanged potassium chloride (Potassium Chloride (Eqv-K-Tab) 20 mEq oral tablet, extended release) 1 tab(s) by mouth Once a day Take with food Unchanged vitamin E (vitamin E 400 intl units oral capsule) 1 cap by mouth Once a day Test Results .Auto Differential (08/25/2022) Neutrophil % - 74.7 % Lymphocyte % - 17.9 % Monocyte % - 5.3 % Eosinophil % - 1.7 % Basophil % - 0.2 % Lymphocyte, Absolute - 1.7 10^3/mcL Monocyte, Absolute - 0.5 10^3/mcL Eosinophil, Absolute - 0.1 10^3/mcL Basophil, Absolute - 0.0 10^3/mcL .Estimated Glomerular Filtration Rate (08/25/2022) GFR Non- - >60 ml/min/1.73sqm GFR - >60 ml/min/1.73sqm .Neutro Absolute (08/25/2022) Neutrophil, Absolute - 7.2 10^3/mcL CBC (08/25/2022) WBC - 9.6 10^3/mcL RBC - 4.60 10^6/mcL Hgb - 12.7 G/dL Hct - 37.6 % MCV - 81.7 fL MCH - 27.6 pg MCHC - 33.8 G/dL RDW - 16.2 % Platelet - 368 10^3/mcL MPV - 7.3 fL CMP (08/25/2022) Glucose Level - 79 mg/dL Sodium Level - 140 mEq/L Potassium Level - 4.0 mEq/L Chloride - 106 mEq/L CO2 - 29 mEq/L Electrolyte Balance - 5.0 mEq/L BUN - 19.0 mg/dL Creatinine Lvl (s) - 0.26 mg/dL BUN/Creatinine Ratio - 73.1 ratio Calcium Lvl - 8.6 mg/dL Total Protein - 6.8 G/dL Albumin Level - 2.7 G/dL Globulin - 4.1 G/dL A/G Ratio - 0.7 ratio Bili Total - 0.30 mg/dL Alk Phos - 89 U/L AST/SGOT - 14 U/L ALT/SGPT - 16 U/L Allergies Flagyl (RED RASH) Neosporin (RASH) Zofran (HEART RACE) clindamycin (VOMITTING, NAUSEA) sulfa drugs (BLISTERS, RED RASH) Additional Information VACCINATE! IT SAVES LIVES! Members of the community who have not yet received the COVID-19 vaccine and would like to receive it can visit one of [facility] vaccine clinics. There are many vaccine clinic locations within the [facility]. For locations and available times, please visit [email or web address]. It is important to note that some COVID mobile vaccine clinics are held outdoors and may be canceled in rainy or stormy conditions. To learn more about pediatric vaccinations (ages 5-11), we invite you to visit the [facility] webpage. [email or web address] To learn more about the COVID-19 vaccine, we invite you to visit the [employer] website for a list of frequently asked questions. [email or web address] [facility] Patient Portal Access Instructions: Stay connected with your healthcare team and access your personal medical information anytime with the [facility] Patient Portal.If you would like a full copy of your medical records, please contact the [facility] Medical Records Department, Wednesday through Wednesday between 8a.m. and 4:30p.m. Please follow the directions below to access the portal: 1.Access the email account you provided upon registration to the [facility].2.Look for an invitation email from [facility].3.Open the email and access the invitation link: Accept Invitation to [facility]4.Fill in the required carrion to create your account. Sign into [email or web address] with your username and password that you created in the above steps to stay up to date. You can then view a summary of results, a summary of your visits, and the ability to download your summaries to your computer or send the information securely to a physician. Remember that your healthcare information is confidential, so carefully consider who you will allow to register on the [facility] Patient Portal for access to your information. You can also access the [facility] Patient Portal on the [employer] m[employer]ay. Simply click on Health Records under Health Data and then click on the [employer] logo. HOW TO SAFELY DISPOSE OF PRESCRIPTION MEDICATIONS Please use one of the following methods to safely dispose of your unused medications. 1.Use a drug disposal kit: the drug disposal pouch allows you to safely discard your old and unused drugs. Ask your nurse to give you one when you are discharged.2.Visit a local take-back location: Many local pharmacies and police departments have programs that collect old and unwanted prescription drugs. Call your local pharmacy or go to http://bit.Der Grüne Punkt/1H2Eo4q to find one close to you.3.Make use of household items: Use cat litter or old coffee grounds to dispose medications if other options are not available. Mix your drugs with these household products, seal them in an airtight container and throw it into the garbage. Call [facility]: [phone] to be sure your drugs can be disposed of in this way. Some medicines may require a different approach.4.Never flush your medications down the toilet. IF YOU HAVE BEEN PRESCRIBED AN OPIOID FOR PAIN If you have been prescribed an opioid (such as hydrocodone, oxycodone or morphine), it is critical to understand the possible side effects and risks of opioid pain medications. Even when taken as directed, opioids can have several side effects including: Tolerance, meaning you might need to take more of a medication for the same pain relief. Nausea, vomiting and/or constipation. Sleepiness, dizziness, dry mouth, confusion, depression or itching. Physical dependence, meaning you have withdrawal symptoms when a medication is stopped, can develop within a few days. KNOW YOUR RESPONSIBILITIES It is important to know exactly how much and how often to take the opioid pain medications you are prescribed. Never take opioids in higher amounts or more often than prescribed. Do not combine opioids with alcohol or other drugs that cause drowsiness, such as benzodiazepines, also known as benzos, including diazepam and alprazolam, muscle relaxants or sleep aids. Never sell or share prescription opioids. This is illegal. Store opioids in a secure place and out of reach of others (including children, family, friends and visitors). The last page of this document has been signed and retained as a CHART COPY. Signatures Patient Education Materials Medication Leaflets My discharge plan and instructions have been reviewed and explained to me and I,NAY PURCELL understand my current condition and have read and understand these discharge instructions. I have received a written copy of the plan/instructions. If I have questions, I am aware that I should contact my doctor. 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 Patient scheduled her mamm on 09/24 @ 1230. Unable to schedule Gloria Rivers after that appointment. Will need to reschedule mamm if patient wants office visit on same day. Please schedule OV and L mammogram same day. Also, advise pt. to stop letrozole/femara. Thank you. Miranda Rivers APRN.ALLAN Patient is calling stating that she has been bed bound for the last three years but requesting mammography order and appointment with you.Please advise the patient. documented in this encounter [facility] 07-25-2022 Note . MICRO - Microbiology PROCEDURE: Culture Wound Aerobic with Gram Stain [*1] SOURCE: Wound (surface) BODY SITE: Hip R COLLECTED DATE/TIME: 07/22/2022 11:25 EDT RECEIVED DATE/TIME: 07/22/2022 16:30 EDT START DATE/TIME: 07/22/2022 16:30 EDT FREE TEXT SOURCE: FINAL REPORTS Final Report [] Verified Date/Time/Personnel: 07/25/2022 09:08 EDT Heavy Group B Beta Hemolytic Strep (Strep agalactiae) Sensitivity testing is not recommended for one of the following reasons: 1. Established susceptibility patterns are available or 2. Interpretative criteria are not available. Light Enterococcus faecalis Few Pseudomonas aeruginosa PRELIMINARY REPORTS Preliminary Report [] Verified Date/Time/Personnel: 07/24/2022 12:54 EDT Heavy Group B Beta Hemolytic Strep (Strep agalactiae) Sensitivity testing is not recommended for one of the following reasons: 1. Established susceptibility patterns are available or 2. Interpretative criteria are not available. Light Enterococcus faecalis FADY to follow Few Pseudomonas aeruginosa FADY to follow Preliminary Report [] Verified Date/Time/Personnel: 07/23/2022 14:34 EDT Culture results pending. STAINS GS [] Verified Date/Time/Personnel: 07/22/2022 16:44 EDT Rare Epithelial cells Rare Gram Positive Rods Rare Gram Positive Cocci SUSCEPTIBILITY RESULTS Enterococcus faecalis Antibiotic FADY Dilut FADY Inter Ampicillin <=2 Susceptible Ciprofloxacin >2 Resistant Gentamicin >500 Resistant synergy Levofloxacin >4 Resistant Vancomycin 1 Susceptible Pseudomonas aeruginosa Antibiotic FADY Dilut FADY Inter Aztreonam <=4 Susceptible Cefepime 8 Susceptible Ceftazidime <=1 Susceptible Gentamicin <=2 Susceptible Imipenem <=1 Susceptible Levofloxacin 4 Resistant Meropenem <=1 Susceptible MICRO - Microbiology SUSCEPTIBILITY RESULTS Pseudomonas aeruginosa Antibiotic FADY Dilut FADY Inter Piperacillin/ <=8 Susceptible Tazobactam Tobramycin <=2 Susceptible Performing Locations *1: This test was performed at: [address], [address] [place] [address] 04-07-2022 Note . MICRO - Microbiology PROCEDURE: Bone Culture [*1] SOURCE: Bone BODY SITE: Hip R COLLECTED DATE/TIME: 03/30/2022 12:08 EDT RECEIVED DATE/TIME: 03/30/2022 14:04 EDT START DATE/TIME: 03/30/2022 14:05 EDT FREE TEXT SOURCE: AMENDED REPORTS Amended Report [] Verified Date/Time/Personnel: 04/07/2022 13:43 EDT From liquid media only Diphtheriods Sensitivity testing is not recommended for one of the following reasons: 1. Established susceptibility patterns are available or 2. Interpretative criteria are not available. FINAL REPORTS Final Report [] Verified Date/Time/Personnel: 04/07/2022 09:49 EDT Diphtheriods Sensitivity testing is not recommended for one of the following reasons: 1. Established susceptibility patterns are available or 2. Interpretative criteria are not available. PRELIMINARY REPORTS Preliminary Report [] Verified Date/Time/Personnel: 03/31/2022 08:28 EDT No growth to date Performing Locations *1: This test was performed at: [address], [address] [place] [address] ([facility] 04-07-2022 Note . MICRO - Microbiology PROCEDURE: Urine Culture [*1] SOURCE: Urine BODY SITE: COLLECTED DATE/TIME: 04/05/2022 22:06 EDT RECEIVED DATE/TIME: 04/05/2022 22:21 EDT START DATE/TIME: 04/05/2022 22:22 EDT FREE TEXT SOURCE: FINAL REPORTS Final Report [] Verified Date/Time/Personnel: 04/07/2022 07:14 EDT <10,000 cfu/ml. No Significant growth. Sensitivity not indicated. PRELIMINARY REPORTS Preliminary Report [] Verified Date/Time/Personnel: 04/06/2022 12:26 EDT No growth to date Performing Locations *1: This test was performed at: [facility], [address] [place] [address], [facility] , [facility] ([place]) Evaluation + Plan note Future Appointments [facility] Evaluation + Plan note Future Appointments Appointment Date:09/10/2022 04:30:00 PM Scheduled Provider: Location:XRAY Appointment Type:MRI Hip w/ Contrast Right Future Scheduled TestsMRI Hip w/ Contrast Right 09/10/22 [facility] Diagnosis Personal history of breast cancer- Primary Personal history of malignant neoplasm of breast Encounter for screening mammogram for high-risk patient [facility] Diagnosis Personal history of breast cancer- Primary Personal history of malignant neoplasm of breast Encounter for screening mammogram for high-risk patient [facility] Diagnosis Vaginal odor- Primary Unspecified symptom associated with female genital organs Vaginal discharge Leukorrhea, not specified as infective [facility] Diagnosis Vaginal odor Unspecified symptom associated with female genital organs Vaginal discharge Leukorrhea, not specified as infective Vaginal atrophy Postmenopausal atrophic vaginitis [facility] Diagnosis Abnormal mammogram of left breast- Primary Personal history of breast cancer Personal history of malignant neoplasm of breast [facility] Diagnosis Personal history of breast cancer Personal history of malignant neoplasm of breast Encounter for screening mammogram for high-risk patient [facility] No data available for this section [facility] Hospital Discharge instructions No data available for this section [facility] Progress note No data available for this section [facility] Reason for referral (narrative)* Diagnostic Procedure Only (Routine) - Pending Review Specialty Diagnoses / Procedures Referred By Patty peterson Referred To Contact [facility] Diagnoses Personal history of breast cancer Encounter for screening mammogram for high-risk patient Procedures ASHLEY SCREENING W MARA SCREENING DIGITAL BREAST TOMOSYNTHESIS BI SCREENING MAMMOGRAPHY BI 2-VIEW BREAST INC CAD Miranda Rivers APRN.BRAND ANALYST [address] [place] [address] [facility] [address] [place] [address] Referral ID Status Reason Start Date Expiration Date Visits Requested Visits Authorized [id number] Pending Review Auto-Generat ed Referral 10/28/2023 1 1 [facility] (narrative)* Diagnostic Procedure Only (Routine) - Authorized Specialty Diagnoses / Procedures Referred By Patty peterson Referred To Contact [facility] Diagnoses Abnormal mammogram of left breast Personal history of breast cancer Procedures US BREAST LTD LEFT US BREAST UNI REAL TIME WITH IMAGE LIMITED Miranda Rivers APRN.BRAND ANALYST [address] [place] [address] [facility] [address] [place] [address] Referral ID Status Reason Start Date Expiration Date Visits Requested Visits Authorized [id number] Authorized Auto-Generat ed Referral 10/01/2023 10/30/2024 1 1 * Diagnostic Procedure Only (Routine) - Authorized Specialty Diagnoses / Procedures Referred By Patty peterson Referred To Contact [facility] Diagnoses Abnormal mammogram of left breast Personal history of breast cancer Procedures ASHLEY DIAGNOSTIC LEFT DIAGNOSTIC MAMMOGRAPHY COMPUTER-AIDED DETCJ UNI Miranda Rivers APRN.BRAND ANALYST [address] [place] [address] [facility] [address] [place] [address] Referral ID Status Reason Start Date Expiration Date Visits Requested Visits Authorized [id number] Authorized Auto-Generat ed Referral 10/01/2023 10/30/[address] [facility] Diagnostic Procedure Only (Routine) - Closed Specialty Diagnoses / Procedures Referred By Contche t Referred To Contact [facility] Diagnoses Personal history of breast cancer Encounter for screening mammogram for high-risk patient Procedures ASHLEY SCREENING W MARA SCREENING DIGITAL BREAST TOMOSYNTHESIS BI SCREENING MAMMOGRAPHY BI 2-VIEW BREAST INC [facility] Miranda Rivers APRN.BRAND ANALYST [address] [place] [address] [facility] [address] [place] [address] Referral ID Status Reason Start Date Expiration Date V isits Requested Visits Authorized [id number] Closed Auto-Generate d Referral 08/21/2022 09/20/2023 1 1 [facility] Summary Purpose Family History No Family History Records Found Negative for MS Status:Active Non-Contributory Family History Status:Active Negative for MS Status:Active Non-Contributory Family History Status:Active Negative for MS Status:Active Non-Contributory Family History Status:Active Negative for MS Status:Active Non-Contributory Family History Status:Active Negative for MS Status:Active Non-Contributory Family History Status:Active Negative for MS Status:Active Non-Contributory Family History Status:Active Negative for MS Status:Active Non-Contributory Family History Status:Active Negative for MS Status:Active Non-Contributory Family History Status:Active Advance Directives No Advanced Directives Records FoundNo Advanced Directives Records FoundNo Advanced Directives Records FoundNo Advanced Directives Records FoundNo Advanced Directives Records FoundNo Advanced Directives Records Found Additional Source Comments INFORMATION SOURCE (unrecogn ized section and content) DATE CREATED AUTHOR AUTHOR'S ORGANIZ ATION 12/18/2021 [facility] DATE CREATED AUTHOR AUTHOR'S ORGANIZ ATION 01/07/2023 [facility] ([place]) DATE CREATED AUTHOR AUTHOR'S ORGANIZ ATION 11/02/2023 [facility] DATE CREATED AUTHOR AUTHOR'S ORGANIZ ATION 12/10/2023 [facility] DATE CREATED AUTHOR AUTHOR'S ORGANIZ ATION 12/18/2023 [facility] Team (unrecognized sect ion and content) 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 Start Date End Date Jovon Levy [address] [place] [address] PCP - General 02/08/04 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 Specialty Start Date End Date Jovon Levy [address] [place] [address] PCP - General 02/08/04 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 Specialty Start Date End Date Jovon Levy [address] [place] [address] PCP - General 02/08/04 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 Specialty Start Date End Date Jovon Levy [address] [place] [address] PCP - General 02/08/04 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 Specialty Start Date End Date Jovon Levy [address] [place] [address] PCP - General 02/08/04 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 Specialty Start Date End Date Jovon Levy [address] [place] [address] PCP - General 02/08/04 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 Specialty Start Date End Date Jovon Levy [address] [facility] [place] [address] PCP - General 02/08/04 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 Specialty Start Date End Date Jovon Levy [address] [place] [address] PCP - General 02/08/04 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 Specialty Start Date End Date Jovon Levy [address] [place] [address] PCP - General 02/08/04 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 Specialty Start Date End Date Jovon Levy [address] [address] PCP - General 02/08/04 Source Comments (unrecognize d section and content) In the event this informatio n is protected by the [facility] Confidentiality of Alcohol and Drug Abuse Patient Records regulations: The Federal rules restrict any use of the information to criminally investigate or prosecute any alcohol or drug abuse patient.[facility] the event this information is protected by the Federal Confidentiality of Alcohol and Drug Abuse Patient Records regulations: The Federal rules restrict any use of the information to criminally investigate or prosecute any alcohol or drug abuse patient.[facility] the event this information is protected by the Federal Confidentiality of Alcohol and Drug Abuse Patient Records regulations: The Federal rules restrict any use of the information to criminally investigate or prosecute any alcohol or drug abuse patient.[facility] the event this information is protected by the Federal Confidentiality of Alcohol and Drug Abuse Patient Records regulations: The Federal rules restrict any use of the information to criminally investigate or prosecute any alcohol or drug abuse patient.[facility] the event this information is protected by the Federal Confidentiality of Alcohol and Drug Abuse Patient Records regulations: The Federal rules restrict any use of the information to criminally investigate or prosecute any alcohol or drug abuse patient.[facility] the event this information is protected by the Federal Confidentiality of Alcohol and Drug Abuse Patient Records regulations: The Federal rules restrict any use of the information to criminally investigate or prosecute any alcohol or drug abuse patient.[facility] the event this information is protected by the Federal Confidentiality of Alcohol and Drug Abuse Patient Records regulations: The Federal rules restrict any use of the information to criminally investigate or prosecute any alcohol or drug abuse patient.[facility]In the event this information is protected by the Federal Confidentiality of Alcohol and Drug Abuse Patient Records regulations: The Federal rules restrict any use of the information to criminally investigate or prosecute any alcohol or drug abuse patient.[facility] HospitalIn the event this information is protected by the Federal Confidentiality of Alcohol and Drug Abuse Patient Records regulations: The Federal rules restrict any use of the information to criminally investigate or prosecute any alcohol or drug abuse patient.[facility] HospitalIn the event this information is protected by the Federal Confidentiality of Alcohol and Drug Abuse Patient Records regulations: The Federal rules restrict any use of the information to criminally investigate or prosecute any alcohol or drug abuse patient.[facility] HospitalIn the event this information is protected by the Federal Confidentiality of Alcohol and Drug Abuse Patient Records regulations: The Federal rules restrict any use of the information to criminally investigate or prosecute any alcohol or drug abuse patient.[facility] HospitalIn the event this information is protected by the Federal Confidentiality of Alcohol and Drug Abuse Patient Records regulations: The Federal rules restrict any use of the information to criminally investigate or prosecute any alcohol or drug abuse patient.[facility] Care Team (unrecognized sect ion and content) Care Team Personnel Name: WALI GUIDO DO Member Role: Primary Care Physician Address: Address: [address] [place] [address] Care Team Related Persons Name: BAMBI VARGAS Care Team Personnel Name: WALI GUIDO DO Member Role: Primary Care Physician Address: Address: [address] [place] [address] Care Team Related Persons Name: BAMBI VARGAS Care Team Personnel Name: WALI GUIDO DO Member Role: Primary Care Physician Address: Address: [address] [place] [address] Care Team Related Persons Name: BAMBI VARGAS Reason for Visit (unrecogniz ed section and content) Reason Comments Future Appointment Reason Comments Orders Reason Comments Vaginal Discharge Brown discharge inte rmittently, vagisil doesn't seem to be helping Reason Comments Patient Question Reason Onset Date Comments Results 09/21/2023 Reason Comments Mammogram Result Call Back FOR RECORDS PERTAINING TO PATIENTS WHO ARE OR HAVE BEEN ENROLLED IN A CHEMICAL DEPENDENCY/SUBSTANCEABUSE PROGRAM, SOME INFORMATION MAY BE OMITTED. This clinical summary was aggregated from multiple sources. Caution should be exercised in using it in the provision of clinical care. This summary normalizes information from multiple sources, and as a consequence, information in this document may materially change the coding, format and clinical context of patient data. In addition, data may be omitted in some cases. CLINICAL DECISIONS SHOULD BE BASED ON THE PRIMARY CLINICAL RECORDS. [facility] [employer] [facility]. provides no warranty or guarantee of the accuracy or completeness of information in this document.
[2023-12-18 18:49] VITALS: BP 108/67; PULSE 82; RESP 14; O2SAT 99
[2023-12-18] MEDS: Magnesium Citrate 300 ML 150 ML PO (19:06)
== END 2023-12-18 19:07 | disposition home or self-care (01) ==
PROVIDERS: Emergency Provider Emergency Medicine; PCP Family Medicine; Visit Provider Emergency Medicine
DX: R10.84 Generalized abdominal pain (principal); K59.00 Constipation, unspecified; E66.9 Obesity, unspecified
CPT/HCPCS: 36591; 74177; 80053; 85025; 96361; 96374; 96375; 99284; J7030; Q9967; A4216

== ENCOUNTER 2024-04-07 09:10 | Day surgery (SDC) | payer MEDICARE, SELFPAY ==
[2024-04-07 09:48] VITALS: BP 123/86; PULSE 86; RESP 16; TEMP 36.1; O2SAT 100; BMI 29.7
[2024-04-07] MEDS: Lactated Ringers 1,000 ML 15 ML IV (10:11)
--- NOTE | 2024-04-07 10:14 | HP.PCM_ITS ---
History and Physical Date of Admission: 04/07/24 Intake Vital Signs 12/18/2413:52 03/09/2414:06 Height 5 ft 7 in 5 ft 7 in Weight: 190 lb BMI 29.7 BP 122/81 H Blood Pressure Location Lt brachial Position Sitting Respiration 18 Pulse 94 Pulse Source Monitor Temp 97.3 F L Temp Source Temporal Pulse Oximetry (%) 99 Oxygen Delivery Method room air Intake Visit Reasons: Rectal Leakage Chief Complaint: rectal leakage Is patient in pain?: No Allergies bacitracin [From Neosporin ([id number])] Allergy (Verified 03/09/24 14:07) Rashneomycin [From Neosporin ([id number])] Allergy (Verified 03/09/24 14:07) Rashondansetron [From Zofran] Allergy (Verified 03/09/24 14:07) palpitationspolymyxin B [From Neosporin ([id number])] Allergy (Verified 03/09/24 14:07) RashSulfa (Sulfonamide Antibiotics) Allergy (Verified 03/09/24 14:07) Rashclindamycin Adverse Reaction (Intermediate, Verified 03/09/24 14:07) Rashmetronidazole [From Flagyl] Adverse Reaction (Verified 03/09/24 14:07) Other Medications ascorbic acid (vitamin C) 500 mg capsule 1 tab PO BID supplement 11/03/19 [History Confirmed 03/09/24] baclofen 20 mg tablet 1 - 2 tab PO Q8H PRN PRN muscle spasms 11/03/19 [History Confirmed 03/09/24] cholecalciferol (vitamin D3) 25 mcg (1,000 unit) tablet 1,000 unit PO DINNER supplement 11/03/19 [History Confirmed 03/09/24] cholestyramine (with sugar) 4 gram oral powder 1 packet PO DAILY cholesterol 11/03/19 [History Confirmed 03/09/24] cranberry extract 200 mg capsule 200 mg PO DINNER supplement 11/03/19 [History Confirmed 03/09/24] oxybutynin chloride 5 mg tablet 2 tab PO BID urination 11/03/19 [History Confirmed 03/09/24] Pro Stat 5 ml PO DINNER wound healing 04/25/20 [History Confirmed 03/09/24] nitrofurantoin macrocrystal 50 mg capsule 50 mg PO DINNER Check with primary doctor 04/25/20 [History Confirmed 03/09/24] Lactobacillus rhamnosus GG 10 billion cell-inulin 200 mg capsule 2 ea PO QHS digestion 05/26/20 [History Confirmed 03/09/24] metoprolol tartrate 25 mg tablet 25 mg PO BID heart rate 05/26/20 [History Confirmed 03/09/24] nystatin 100,000 unit/gram topical cream 1 applic topical BID reddness 05/26/20 [History Confirmed 03/09/24] acetic acid 0.25 % irrigation solution 60 ml IR QHS catheter 09/02/20 [History Confirmed 03/09/24] baclofen 10 mg tablet 20 mg (2 x 10 mg) PO TID 09/15/20 [Rx Confirmed 03/09/24] food supplemt, lactose-reduced 120 ml PO 4X/DAY 09/15/20 [Rx Confirmed 03/09/24] metoprolol tartrate 25 mg tablet 25 mg PO BID 09/15/20 [Rx Confirmed 03/09/24] nystatin 100,000 unit/gram topical powder 1 applic topical BID 09/15/20 [Rx Confirmed 03/09/24] polysaccharide iron complex 150 mg iron capsule 150 mg PO DAILYCM #30 caps 09/15/20 [Rx Confirmed 03/09/24] potassium chloride 20 mEq tablet,extended release(part/cryst) 20 meq PO BIDCM #60 tabs 09/15/20 [Rx Confirmed 03/09/24] clobetasol 0.05 % topical cream 1 applic topical BID 07/04/21 [History Confirmed 03/09/24] estradiol 10 mcg vaginal insert 10 mcg vaginal QODAY 07/04/21 [History Confirmed 03/09/24] fluconazole 200 mg tablet See Rx Instructions .Route .COMPLEX #2 tabs 10/03/21 [Rx Confirmed 03/09/24] cephalexin 500 mg capsule 500 mg PO BID 03/09/24 [History Confirmed 03/09/24] exemestane 25 mg tablet 25 mg PO DAILY 03/09/24 [History Confirmed 03/09/24] heparin (porcine) 10 unit/mL in 0.9 % sodium chloride intravenous kit ml intra- catheter 03/09/24 [History Confirmed 03/09/24] [facility] Surgical History (Updated 12/18/23 @ 15:[address] Hany Tapia MD) History of colostomy Hx of cholecystectomy Social History (Updated 03/09/24 @ 14:06 by Elaine Light LPN) Smoking Status: Never smoker alcohol intake: never substance use type: does not use HPI HPI HPI: Patient is a 69-year-old female here due to constipation. She reports that since November she has been having worsening constipation with decreased output in her colostomy. She was originally seen back in January at an outside hospital where a CT scan revealed some inflammation of the mucosa of the rectal stump and she was having some leakage. They started on Augmentin and all that disappeared. She does not describe any discomfort in the area. She says that her main problem is feeling like she cannot get anything out of her colostomy and sometimes it feels like there is pressure. She says that sometimes she has also been having soft stools that are about pudding consistency. She is more concerned for the constipation and not having output out of the ostomy. ROS General General: Yes breast cancer; No weight change, appetite, fatigue, colon cancer or weakness HEENT HEENT: Yes eye surgery; No difficulty swallowing, eye injury, swollen glands or hoarseness Endo Endocrine: No thyroid disease, diabetes mellitus, thyroid cancer, Hair loss, heat intolerance or cold intolerance Skin Skin: Yes rash; No changing moles Musc Musculoskeletal: No back problems, arthritis, rheumatoid arthritis, gout or joint pain Psych Psychiatric: No depression, anxiety or hearing voices Resp Respiratory: No shortness of breath, No sleep apnea, No cough, No COPD, No asthma, No emphysema and No wheezing Gastro Gastrointestinal: No abdominal pain, No nausea or vomiting, Yes diarrhea, Yes constipation, No blood in stool, No acid reflux, No hemorrhoids, No ulcers, No gallbladder problem and No black,tarry stools Jasen Hematologic: No blood thinners, No blood disorders, No bleeding, No anemia and No blood clots Neuro Neurologic: No numbness, No tingling and No weakness Exam Const General: cooperative Orientation: alert and oriented x3 HENMT Head: normal to inspection Neck Neck: normal visual inspection and full ROM Chest Chest palpation & inspection: normal inspection of the chest Resp Effort & Inspection: normal respiratory effort Auscultation: clear to auscultation bilaterally Cardio Rate: regular rate Rhythm: regular rhythm GI Inspection: non-distended Palpation: soft and nontender Skin General: no rashes or lesions noted Neuro General: patient alert and patient oriented x3 Extrem General: full ROM Psych Appearance: grossly normal Mental Status: mental status grossly normal Assessment and Plan Assessment and Plan (1) Colostomy complication, unspecified: Status: Acute Plan: The patient reports that she is having change in her bowel habits and a lot more constipation with decreasing output from her stoma. I digitized the stoma and I was able to reach into the abdomen with no restriction. I do not believe she is strictured at the colostomy. I did offer her colonoscopy to evaluate the colon and the rectal pouch. Her last colonoscopy was in 2012 so she is due anyway for colonoscopy so I believe this will let us evaluate the rectal pouch as well as evaluate for reasons or constipation. I explained endoscopy in detail to the patient. I explained the risks including but not limited to stroke or heart attack with anesthesia, perforation of the GI tract, bleeding, infection. I explained that any of these could necessitate further emergency surgery. The patient understands and all questions were answered sufficiently. The patient wishes to proceed with procedure. Gabriele Coyne MD Pager: [facility] [address] [place] [address], [address] [place] [address] Office: I have examined the patient and the H&P has been reviewed. There are no clinical changes since date of exam.
--- NOTE | 2024-04-07 11:07 | RAD_ITS ---
STUDY: BARIUM ENEMA. REASON FOR EXAM: Female, 69 years old. Unable to complete colonoscopy FLUOROSCOPY TIME (if supplied): ( 45 seconds ) minutes/seconds. 18.25 mGy. 16 images were obtained. TECHNIQUE: The ostomy was cannulated. Barium was introduced into the colon via gravity. The descending colon as well as the splenic flexure, transverse colon and right hemicolon was opacified. COMPARISON: None. FINDINGS: No evidence of retrograde obstruction to the flow of contrast. No mass lesion is seen. RAD/Barium Enema w/Air Contrast IMPRESSION: Unremarkable barium enema. Electronically Signed: Shar Zamora MD at 14:14 EDT ,
--- NOTE | 2024-04-07 11:13 | PN_ITS ---
Progress Note I performed a colonoscopy on the patient today. First we performed a scope of the rectal stump. It appeared to have some mucus in it but it did not appear to have a fistula. There was no purulence or signs of irritation. Next the colonoscope was placed through the sigmoid colostomy and colonoscopy was attempted but I was unable to pass the hepatic flexure. Due to significant looping and poor prep I was unable to assess the ascending colon and cecum. The remainder of the colon was normal. I will order a barium enema to evaluate the cecum. I was not able to find any cause for her diarrhea or constipation. Gabriele Coyne MD Pager: [facility] [address] [place] [address] [address] [place] [address] Office:
--- NOTE | 2024-04-07 11:13 | OP.COLON_ITS ---
Patient Name: Zoey Purcell Procedure Date: 04/07/2024 10:18 AM Date of : 1955 Age: 69 Procedure: Colonoscopy Indications: Constipation Providers: Gabriele Coyne MD Referring MD: Kleber Olivera Medicines: Propofol per Anesthesia Patient Profile: This is a 69 year old female. Refer to note in patient chart for documentation of history and physical. Last Colonoscopy: more than 10 years ago. Complications: No immediate complications. Procedure: Pre-Anesthesia Assessment: - Prior to the procedure, a History and Physical was performed, and patient medications and allergies were reviewed. The patient's tolerance of previous anesthesia was also reviewed. The risks and benefits of the procedure and the sedation options and risks were discussed with the patient. All questions were answered, and informed consent was obtained. Prior Anticoagulants: The patient has taken no anticoagulant or antiplatelet agents. After reviewing the risks and benefits, the patient was deemed in satisfactory condition to undergo the procedure. After I obtained informed consent, the scope was passed under direct vision. Throughout the procedure, the patient's blood pressure, pulse, and oxygen saturations were monitored continuously. The Colonoscope was introduced through the anus and advanced to the hepatic flexure. The colonoscopy was unusually difficult due to unsatisfactory bowel prep and significant looping. The patient tolerated the procedure well. The quality of the bowel preparation was adequate. Anatomical landmarks were photographed. Scope In: 10:36:19 AM Scope Out: 11:06:07 AM Total Procedure Duration Time 0 hours 29 minutes 48 seconds Findings: The rectal stump was investigated and there was not an obvious fistula. Colon was inspected through the colostomy, Unable to reach the cecum, there was significant looping and I was unable to complete the scope. What colon was examined was normal. The entire examined colon appeared normal on direct and retroflexion views. Impression: - The entire examined colon is normal on direct and retroflexion views. - No specimens collected. Recommendation: - Discharge patient to home. - Resume previous diet. - Continue present medications. - Perform an air contrast barium enema today. - Repeat colonoscopy in 10 years for screening purposes. Procedure Code(s): --- Professional --- 97148, 53, Colonoscopy, flexible; diagnostic, including collection of specimen(s) by brushing or washing, when performed (separate procedure) Diagnosis Code(s): --- Professional --- K59.00, Constipation, unspecified CPT copyright 2021 [employer]. All rights reserved. The codes documented in this report are preliminary and upon senior tax analyst review may be revised to meet current compliance requirements. Gabriele Coyne MD 04/07/2024 11:12:54 AM This report has been signed electronically. Number of Addenda: 0 Note Initiated On: 04/07/2024 10:18 AM
--- NOTE | 2024-04-07 11:13 | OP.CCLET_ITS ---
04/07/2024 Kleber Olivera Re : Colonoscopy procedure for Zoey Olivera This procedure was performed on Sunday, April 07, 2024. My impressions and recommendations are as follows: Impressions : - The entire examined colon is normal on direct and retroflexion views. - No specimens collected. Recommendations : - Discharge patient to home. - Resume previous diet. - Continue present medications. - Perform an air contrast barium enema today. - Repeat colonoscopy in 10 years for screening purposes. My findings are described in the full procedure note, which is enclosed. If I can be of further assistance, please feel free to contact me at Doctor phone number(s): , Work: . Sincerely, Gabriele Coyne MD 04/07/2024 11:12:54 AM This report has been signed electronically.
[2024-04-07 11:15] VITALS: BP 123/65; BP 123/86; PULSE 77; RESP 20; TEMP 36.4; O2SAT 98
[2024-04-07 11:20] VITALS: BP 113/67; BP 123/86; PULSE 86; RESP 16; O2SAT 97
[2024-04-07 11:25] VITALS: BP 123/86; BP 143/74; PULSE 83; RESP 16; O2SAT 96
[2024-04-07 11:30] VITALS: BP 123/86; BP 125/73; PULSE 72; RESP 16; TEMP 35.9; O2SAT 98
[2024-04-07 12:23] VITALS: BP 123/86
--- NOTE | 2024-04-07 12:23 | SUR.PHASEII ---
patient awaiting radiology scan.
[2024-04-07] MEDS: 0.9 % NaCl (Sterile) Posiflush 10 mL IV (12:26)
== END 2024-04-07 12:46 | disposition home or self-care (01) ==
LOC: EN 09:18 → AC 09:19
PROVIDERS: PCP Family Medicine; Referring Provider Family Medicine; Visit Provider Surgery
PROC: 0DJD8ZZ Inspection of Lower Intestinal Tract, Via Natural or Artificial Opening Endoscopic (ICD-10-PCS; CPT 45378; principal; 2024-04-07 10:10)
DX: K94.09 Other complications of colostomy (principal); K59.00 Constipation, unspecified; Z53.09 Procedure and treatment not carried out because of other contraindication
CPT/HCPCS: 45378; 74280; A4216; J2405